=== PATIENT | female | born 1930 | race Caucasian/White ===

== ENCOUNTER 2017-12-18 22:57 | Emergency (ER) | END 2017-12-19 02:34 | disposition home or self-care (01) ==

== ENCOUNTER 2019-01-31 23:23 | Inpatient (IN) | payer MEDICARE, BC ==
[~2019-01-31] VITALS: Ht 154.9 cm; Wt 47.7 kg
[~2019-01-31 23:23] MED LIST: DOCU250C58 PO; DOXY100T20 PO; FER325 PO; FURO-110 PO; HYDR473S13 PO; IPRA3AMP29 HHN; LEVO500T48 PO; LEVO75TA5 PO; LUBI24CA7 PO; MECL-77 PO; NPH10OT RIGHT EAR; OMEP20CA16 PO; POLY17PO6 PO; POTA8CAP PO; SITA1TAB PO; SOTA80TA PO; WARF3TAB PO
[2019-01-31 23:26] VITALS: Ht 154.9 cm; Wt 47.7 kg
[2019-02-01] VITALS (8 sets, daily range): BP systolic 131–143; BP diastolic 59–68; PULSE 60–67; RESP 19–20
[2019-02-01] MEDS: FUROSEMIDE 40 MG INJ IV ONE ×2 (03:00→03:27)
--- NOTE | 2019-02-01 03:14 | ERD ---
ER Documentation Chief Complaint Chief Complaint SOB, cough, chest congestion X 1 wk, Hx CHF HPI This is an 88 female coming with shortness of breath and chest congestion for 1 week. Patient has history of CHF. No nausea no vomiting no fevers no chills no chest pain. Has been getting progressively more orthopneic. Also has dyspnea on exertion. No nausea vomiting no other current complaints. ROS All systems reviewed and are negative except as per history of present illness. Medications Home Meds Active Scripts Neomycin/Polymyxin/Hydrocort* (Cortisporin* Otic) 10 Ml Susp, 4 DROP RIGHT EAR QID for 7 Days, EA Prov:PORFIRIO KHANNA DO 12/19/17 Meclizine Hcl* (Meclizine Hcl*) 25 Mg Tablet, 25 MG PO TID for vertigo, #30 TAB Prov:PORFIRIO KHANNA DO 12/19/17 Levofloxacin* (Levaquin*) 500 Mg Tablet, 500 MG PO DAILY for 7 Days, TAB Prov:PORFIRIO KHANNA DO 12/19/17 Polyethylene Glycol* (Miralax*) 17 Gm Powd.pack, 17 GM PO DAILY for 10 Days Prov:HERSON DAVIS MD 11/27/16 Lubiprostone* (Amitiza*) 24 Mcg Capsule, 24 MCG PO WITH BREAKFAST DINNE for 28 Days, CAP Prov:HERSON DAVIS MD 11/27/16 Ipratropium-Albuterol (Ipratropium-Albuterol) 0.5-3 Mg/3 Ml Ampul.neb, 3 ML HHN Q2H RESP THERAPY PRN for SHORTNESS OF BREATH for 28 Days Prov:HERSON DAVIS MD 11/27/16 Hydrocodone-Homatropine* (Hydrocodone-Homatropine*) 5MG-1.5MG/5 Ml Syrup, 5 ML PO PRN PRN for COUGH for 14 Days Prov:HERSON DAVIS MD 11/27/16 Doxycycline Hyclate* (Doxycycline Hyclate*) 100 Mg Tablet.dr, 100 MG PO BID for pneumonia+ bronchitis , #14 TAB Prov:KEVIN ZHOU MD 11/23/16 Furosemide* (Lasix*) 20 Mg Tablet, 20 MG PO QAM, #90 TAB Prov:KEVIN ZHOU MD 11/23/16 Omeprazole* (Omeprazole*) 20 Mg Capsule., 40 MG PO BID, #60 CAP Prov:RICARDO ARREGUIN MD 11/13/16 Reported Medications Polyethylene Glycol* (Miralax*) 17 Gm Powd.pack, 17 GM PO DAILY, #30 PACKET 11/21/16 Potassium Chloride* (Potassium Chloride*) 8 Meq Capsule.er, 8 MEQ PO every other day, CAP 11/21/16 Docusate Sodium* (Colace*) 250 Mg Capsule, 250 MG PO DAILY, #30 CAP 11/21/16 Ferrous Sulfate* (Ferrous Sulfate*) 325 Mg Tabec, 325 MG PO BID, TAB 11/09/16 Levothyroxine Sodium* (Levothyroxine Sodium*) 75 Mcg Tablet, 75 MCG PO BEFORE BREAKFAST, #30 TAB 09/14/16 Sotalol Hcl* (Sotalol Hcl*) 80 Mg Tablet, 80 MG PO BID, TAB 09/14/16 Sitagliptin Phos/Metformin HCl (Janumet 50-500 mg Tablet) 1 Each Tablet, 1 EACH PO DAILY AM, TAB 09/14/16 Warfarin Sodium* (Coumadin*) 3 Mg Tablet, 3 MG PO DAILY, TAB 09/14/16 Allergies Allergies: Coded Allergies: No Known Allergy (Unverified , 12/18/17) PMhx/Soc History of Surgery: Yes (Hernia Repair, C Section, Gall bladder dates unknown.) Anesthesia Reaction: No Hx Neurological Disorder: No Hx Respiratory Disorders: Yes (Asthma ) Hx Cardiac Disorders: Yes Hx Psychiatric Problems: No Hx Miscellaneous Medical Probl: Yes (HYPOTHYROID) Hx Alcohol Use: No Hx Substance Use: No Hx Tobacco Use: No Smoking Status: Never smoker Physical Exam Vitals Vital Signs Date Temp Pulse Resp B/P (MAP) Pulse Ox O2 O2 Flow FiO2 Time Delivery Rate 02/01/19 Nasal 2.0 02:00 Cannula 02/01/19 Nasal 2 02:00 Cannula 01/31/19 98.5 60 18 144/64 94 23:26 (90) Physical Exam Const: No acute distress Head: Atraumatic Eyes: Normal Conjunctiva ENT: Normal External Ears, Nose and Mouth. Neck: Full range of motion. No meningismus. Resp: Scattered rales bilaterally Cardio: Regular rate and rhythm, no murmurs Abd: Soft, non tender, non distended. Normal bowel sounds Skin: No petechiae or rashes Back: No midline or flank tenderness Ext: No cyanosis, or edema Neur: Awake and alert Psych: Normal Mood and Affect Result Diagram: 02/01/192 02/01/19 0152 Results 24 hrs Laboratory Tests Test 02/01/19 01:52 White Blood Count 11.4 10^3/ul Red Blood Count 3.45 10^6/ul Hemoglobin 11.0 g/dl Hematocrit 33.8 % Mean Corpuscular Volume 98.0 fl Mean Corpuscular Hemoglobin 31.9 pg Mean Corpuscular Hemoglobin Concent 32.5 g/dl Red Cell Distribution Width 13.4 % Platelet Count 256 10^3/UL Mean Platelet Volume 10.8 fl Immature Granulocytes % 1.100 % Neutrophils % 82.3 % Lymphocytes % 7.1 % Monocytes % 8.8 % Eosinophils % 0.3 % Basophils % 0.4 % Nucleated Red Blood Cells % 0.0 /100WBC Immature Granulocytes # 0.130 10^3/ul Neutrophils # 9.4 10^3/ul Lymphocytes # 0.8 10^3/ul Monocytes # 1.0 10^3/ul Eosinophils # 0.0 10^3/ul Basophils # 0.0 10^3/ul Nucleated Red Blood Cells # 0.0 10^3/ul Sodium Level 142 mmol/L Potassium Level 5.0 mmol/L Chloride Level 99 mmol/L Carbon Dioxide Level 33 mmol/L Anion Gap 10 Blood Urea Nitrogen 67 mg/dl Creatinine 1.76 mg/dl Est Glomerular Filtrat Rate mL/min mL/min Glucose Level 175 mg/dl Calcium Level 9.5 mg/dl Total Bilirubin 0.3 mg/dl Direct Bilirubin 0.00 mg/dl Indirect Bilirubin 0.3 mg/dl Aspartate Amino Transf (AST/SGOT) 33 IU/L Alanine Aminotransferase (ALT/SGPT) 26 IU/L Alkaline Phosphatase 106 IU/L Troponin I < 0.012 ng/ml B-Type Natriuretic Peptide 01456 PG/ML Total Protein 7.5 g/dl Albumin 3.7 g/dl Globulin 3.80 g/dl Albumin/Globulin Ratio 0.97 Current Medications Medications Dose Sig/Radha Start Time Status Last (Trade) Ordered Route PRN Stop Time Admin Dose Reason Admin Furosemide 80 mg ONCE ONCE 02/01/19 DC (Lasix) IV 03:00 02/01/19 03:01 Procedures/MDM EKG: Rate/Rhythm: [Normal Sinus Rhythm] QRS, ST, T-waves: [No changes consistent w/ acute ischemia] Impression: [No evidence of ischemia or arrhythmia] Chest X-ray 1V Interpreted by me: Soft Tissue: No acute abnormalities Bones: No acute abnormalities Mediastinum/Cardiac Silhouette/Lungs: Increased interstitial fluid markings. Impression: CHF Medical decision making: Patient's heart failure symptoms is concerning for acute decompensation and will require inpatient workup and monitoring. Further w/u for ischemia, arrhythmia, PE or dissection will be deferred to the inpatient team. Accepting Care Team: Current data and ongoing care discussed. Time: 313 a.m. Primary Provider: Hospitalist Consulting: Deferred to inpatient team Outstanding Data: none Departure Diagnosis: Primary Impression: CHF (congestive heart failure) Heart failure type: unspecified Heart failure chronicity: unspecified Qualified Codes: I50.9 - Heart failure, unspecified Condition: RESHMA Mensah Feb 01, 2019 03:14
[2019-02-01] MEDS ORDERED: FUROSEMIDE 40 MG INJ IV ONE (05:00)
[2019-02-01] MEDS ORDERED: ONDANSETRON 4 MG INJ IV PRN (05:00)
[2019-02-01] MEDS ORDERED: NACL 0.9% 3 ML SYG IV SCH (05:00)
[2019-02-01] MEDS ORDERED: ACETAMINOPHEN 325 MG TAB PO PRN (05:00)
[2019-02-01] MEDS ORDERED: NITROGLYCERIN (SL) 0.4 MG TAB SL PRN (05:00)
[2019-02-01] MEDS ORDERED: ALBUTEROL/IPRATROPIUM (NEB) 3 ML AMP HHN PRN ×2 (05:00)
[2019-02-01] MEDS ORDERED: GLUCOSE GEL 15 GRAM TUBE BUCCAL PRN (05:30)
[2019-02-01] MEDS ORDERED: GLUCOSE GEL 15 GRAM TUBE PO PRN ×2 (05:30)
[2019-02-01] MEDS ORDERED: GLUCAGON 1 MG INJ IM PRN (05:30)
[2019-02-01] MEDS ORDERED: DEXTROSE 50% 50 ML SYRINGE IV PRN (05:30)
--- NOTE | 2019-02-01 06:13 | HP ---
Date/Time of Note Date/Time of Note DATE: 02/01/19 TIME: 06:08 Assessment/Plan VTE Prophylaxis Pharmacological prophylaxis: heparin Lines/Catheters IV Catheter Type (from Nrsg): Saline Lock Assessment/Plan Assessment/Plan 1. CHF exacerbation: will diurese -2D echo 2. Atrial fibrillation: In sinus and rate controlled -Continue home meds. Patient also on Coumadin. Will check PT PTT first 3. CKD: Consider nephrology consult in a.m. 4. Diabetes: Insulin while in-house 5. Normocytic anemia: Likely secondary to iron deficiency and chronic di sease/CKD -Continue ferrous sulfate -Check FOBT and ferritin/iron. Note that patient has a history of GI bleed and has been on Coumadin Result Diagram: 02/01/19 0152 02/01/19 0152 Results 24hrs Laboratory Tests Test 02/01/19 01:52 02/01/19 05:28 White Blood Count 11.4 #H Red Blood Count 3.45 #L Hemoglobin 11.0 #L Hematocrit 33.8 #L Mean Corpuscular Volume 98.0 Mean Corpuscular Hemoglobin 31.9 Mean Corpuscular Hemoglobin Concent 32.5 Red Cell Distribution Width 13.4 # Platelet Count 256 Mean Platelet Volume 10.8 #H Immature Granulocytes % 1.100 H Neutrophils % 82.3 H Lymphocytes % 7.1 L Monocytes % 8.8 Eosinophils % 0.3 Basophils % 0.4 Nucleated Red Blood Cells % 0.0 Immature Granulocytes # 0.130 H Neutrophils # 9.4 H Lymphocytes # 0.8 Monocytes # 1.0 H Eosinophils # 0.0 Basophils # 0.0 Nucleated Red Blood Cells # 0.0 Sodium Level 142 Potassium Level 5.0 Chloride Level 99 Carbon Dioxide Level 33 H Anion Gap 10 Blood Urea Nitrogen 67 H Creatinine 1.76 H Est Glomerular Filtrat Rate mL/min Glucose Level 175 Calcium Level 9.5 Total Bilirubin 0.3 Direct Bilirubin 0.00 Indirect Bilirubin 0.3 Aspartate Amino Transf (AST/SGOT) 33 Alanine Aminotransferase (ALT/SGPT) 26 Alkaline Phosphatase 106 Troponin I < 0.012 0.025 B-Type Natriuretic Peptide 89658 H Total Protein 7.5 Albumin 3.7 Globulin 3.80 H Albumin/Globulin Ratio 0.97 Creatine Kinase 21 L Creatine Kinase Index Pending Creatinine Kinase MB (Mass) Pending HPI/ROS Admit Date/Time Admit Date/Time Hx of Present Illness This is an 88-year-old female with a history of CHF, atrial fibrillation, diabetes, hypothyroidism, CKD, GI bleed, pacemaker, ESBL UTI. Patient was brought to the ER for shortness of breath and cough. Patient has been weak to answer questions, especially when she first came in. No reported chest pain. She was recently hospitalized at [facility] and was discharged to convalescent home. Chest x-ray shows mild CHF and small bilateral pleural effusion. Lab shows a WBC of 11.4, hemoglobin 11, creatinine 1.76 and a BNP of around 12,000. PMH/Family/Social Past Medical History Medications Current Medications IV Flush (NS 3 ml) 3 ml PER PROTOCOL IV ; Start 02/01/19 at 05:00 Ondansetron HCl (Zofran Inj) 4 mg Q6H PRN IV NAUSEA/VOMITING; Start 02/01/19 at 05:00 Nitroglycerin (Nitroglycerin (Sl Tab) 0.4 Mg) 1 tab Q5M PRN SL .CHEST PAIN; Start 02/01/19 at 05:00 Acetaminophen (Tylenol Tab) 650 mg Q6H PRN PO .PAIN 1-3 OR TEMP; Start 02/01/19 at 05:00 Heparin Sodium (Porcine) (Heparin (5000 Units/1ml)) 5,000 unit Q12 SC ; Start 02/01/19 at 09:00 Albuterol/ Ipratropium (Duoneb) 3 ml Q2H RESP THERAPY PRN HHN SHORTNESS OF BREATH; Start 02/01/19 at 05:00 Diagnostic Test (Pha) (Accu-Chek) 1 ea 02 XX ; Start 02/02/19 at 02:00 Insulin Glargine (Lantus) 10 units DAILY@2000 SC ; Start 02/01/19 at 20:00 Insulin Aspart (Novolog Insulin Pen) NOVOLOG *MILD* ALGORITHM WITH MEALS BEDTIM E SC ; Start 02/01/19 at 08:00 Docusate Sodium (Colace) 250 mg DAILY PO ; Start 02/01/19 at 09:00 Ferrous Sulfate (Ferrous Sulfate (Ec)) 325 mg BID PO ; Start 02/01/19 at 09:00 Hydrocodone Bit/ Homatropine Methylb (Hycodan Liquid) 5 ml DAILY PRN PO COUGH; Start 02/01/19 at 05:00 Levothyroxine Sodium (Synthroid) 75 mcg BEFORE BREAKFAST PO ; Start 02/01/19 at 07:00 Lubiprostone (Amitiza) 24 mcg WITH BREAKFAST DINNE PO ; Start 02/01/19 at 08:00 Meclizine HCl (Antivert) 25 mg TID PO ; Start 02/01/19 at 09:00 Polyethylene Glycol (Miralax) 17 gm DAILY PO ; Start 02/01/19 at 09:00 Sotalol HCl (Betapace) 40 mg BID PO ; Start 02/01/19 at 09:00 Warfarin Sodium (Coumadin) 3 mg DAILY@1700 PO ; Start 02/01/19 at 17:00 Pantoprazole (Protonix Tab) 40 mg DAILY@06 PO ; Start 02/01/19 at 06:00 Furosemide (Lasix) 20 mg BID DIURETICS PO ; Start 02/01/19 at 06:00 Miscellaneous Information 1 ea NOTE XX ; Start 02/01/19 at 05:30 Glucose (Glutose) 15 gm Q15M PRN PO DECREASED GLUCOSE; Start 02/01/19 at 05:30 Glucose (Glutose) 22.5 gm Q15M PRN PO DECREASED GLUCOSE; Start 02/01/19 at 05:30 Dextrose (D50w Syringe) 25 ml Q15M PRN IV DECREASED GLUCOSE; Start 02/01/19 at 05:30 Dextrose (D50w Syringe) 50 ml Q15M PRN IV DECREASED GLUCOSE; Start 02/01/19 at 05:30 Glucagon (Glucagen) 1 mg Q15M PRN IM DECREASED GLUCOSE; Start 02/01/19 at 05:30 Glucose (Glutose) 15 gm Q15M PRN BUCCAL DECREASED GLUCOSE; Start 02/01/19 at 05 :30 Coded Allergies: No Known Allergy (Unverified , 12/18/17) Family History Significant Family History: no pertinent family hx Social History Smoking Status: Never smoker Exam/Review of Systems Vital Signs Vitals Vital Signs Date Temp Pulse Resp B/P (MAP) Pulse Ox O2 O2 Flow FiO2 Time Delivery Rate 02/01/19 60 16 122/52 100 Nasal 2.0 05:00 (75) Cannula 01/31/19 98.5 23:26 Exam Exam Past Medical History: see hpi Past Surgical History Past Surgical Hx: other (see hpi) Family History Significant Family History: no pertinent family hx Social History Alcohol Use: other Smoking Status: Unknown if ever smoked Drug Use: other Medications Exam Eyes: PERRL ENMT: mucosa pink and moist Respiratory: normal air movement Cardiovascular: nl pulses Gastrointestinal: soft Extremities: normal pulses RESHMA ACUÑA MD Feb 01, 2019 06:13
[2019-02-01] MEDS: FUROSEMIDE 20 MG TAB PO SCH ×2 (07:00→17:44)
[2019-02-01] MEDS: PANTOPRAZOLE (EC) 40 MG TAB PO SCH (07:17)
[2019-02-01] MEDS ORDERED: FUROSEMIDE 20 MG TAB PO SCH (09:00)
[2019-02-01] MEDS ORDERED: DOCUSATE SODIUM 250 MG CAP PO SCH (09:00)
[2019-02-01] MEDS: FERROUS SULFATE (EC) 325 MG TAB PO SCH ×2 (09:07→22:28)
[2019-02-01] MEDS: POLYETHYLENE GLYCOL 17 GM PACKET PO SCH (09:07)
[2019-02-01] MEDS: MECLIZINE 25 MG TAB PO SCH ×3 (09:07→22:28)
[2019-02-01] MEDS: LEVOTHYROXINE 75 MCG TAB PO SCH (09:07)
[2019-02-01] MEDS: HEPARIN 5,000 UNIT/1 ML VIAL SC SCH ×2 (09:19→22:31)
[2019-02-01] MEDS: SOTALOL 80 MG TAB PO SCH ×2 (09:29→22:29)
[2019-02-01] MEDS: LUBIPROSTONE 24 MCG CAP PO SCH ×2 (09:29→17:43)
[2019-02-01] MEDS: INSULIN ASPART [NOVOLOG] 3 ML PEN SC SCH ×4 (09:42→21:00)
--- NOTE | 2019-02-01 12:08 | CONS ---
Assessment/Plan Assessment/Plan Assessment/Plan (Daily) 1. acute kidney injury on CKD due to hemodyanmics from CHF 2. acute CHF, acute on chronic diastolic CHF, ECHO showed EF 60% with stage II diastoilc dysfunction 3. H/o HTN 4. H/o HL 5. Anemia of CKD 6. H/o history of CHF, atrial fibrillation, diabetes, hypothyroidism, CKD, GI bleed, pacemaker, Plan: seen on tele floor S/p lasix 40mg IV x 1 dose , will continue lasix 20mg pO BID S/p cardiology consult, pt had a full CKD work up on previosu admisison will follow up Consultation Date/Type/Reason Admit Date/Time 02/01/19 Date of Consultation: Feb 01, 2019 Type of Consult NEPHROLOGY Reason for Consultation acute on chronic renal failure, CHF Requesting Provider: ANDREA KHAN NP Date/Time of Note DATE: 02/01/19 TIME: 12:08 Hx of Present Illness 88-year-old female with a history of CHF, atrial fibrillation, diabetes, hypothyroidism, CKD, GI bleed, pacemaker, ESBL UTI. Patient was brought to the ER for shortness of breath and cough. Patient has been weak to answer questions, especially when she first came in. No reported chest pain. She was recently hospitalized at [facility] and was discharged to convalescent home. Chest x-ray shows mild CHF and small bilateral pleural effusion. Lab shows a WBC of 11.4, hemoglobin 11, creatinine 1.76 and a BNP of around 12,000._ renal has been consulted for COLTEN on CKD. ECHO showed EF 60% stage II diastolic dysfunction Constitutional: no complaints Eyes: no complaints ENT: no complaints Respiratory: pain, pleuritic pain, shortness of breath Cardiovascular: no complaints Gastrointestinal: no complaints Genitourinary: no complaints Musculoskeletal: no complaints Skin: no complaints Neurologic: no complaints Endocrine: no complaints Lymphatic: no complaints Psychological: no complaints, nl mood/affect Immunologic: no complaints Past Medical History Medical History: other (CHF, atrial fibrillation, diabetes, hypothyroidism, CKD, GI bleed, pacemaker, ESBL UTI.) Home Meds Active Scripts Neomycin/Polymyxin/Hydrocort* (Cortisporin* Otic) 10 Ml Susp, 4 DROP RIGHT EAR QID for 7 Days, EA Prov:PORFIRIO KHANNA DO 12/19/17 Meclizine Hcl* (Meclizine Hcl*) 25 Mg Tablet, 25 MG PO TID for vertigo, #30 TAB Prov:PORFIRIO KHANNA. DO 12/19/17 Levofloxacin* (Levaquin*) 500 Mg Tablet, 500 MG PO DAILY for 7 Days, TAB Prov:PORFIRIO KHANNA. DO 12/19/17 Polyethylene Glycol* (Miralax*) 17 Gm Powd.pack, 17 GM PO DAILY for 10 Days Prov:HERSON DAVIS MD 11/27/16 Lubiprostone* (Amitiza*) 24 Mcg Capsule, 24 MCG PO WITH BREAKFAST DINNE for 28 Days, CAP Prov:HERSON DAVIS MD 11/27/16 Ipratropium-Albuterol (Ipratropium-Albuterol) 0.5-3 Mg/3 Ml Ampul.neb, 3 ML HHN Q2H RESP THERAPY PRN for SHORTNESS OF BREATH for 28 Days Prov:HERSON DAVIS MD 11/27/16 Hydrocodone-Homatropine* (Hydrocodone-Homatropine*) 5MG-1.5MG/5 Ml Syrup, 5 ML PO PRN PRN for COUGH for 14 Days Prov:HERSON DAVIS MD 11/27/16 Doxycycline Hyclate* (Doxycycline Hyclate*) 100 Mg Tablet., 100 MG PO BID for pneumonia+ bronchitis , #14 TAB Prov:KEVIN ZHOU MD 11/23/16 Furosemide* (Lasix*) 20 Mg Tablet, 20 MG PO QAM, #90 TAB Prov:KEVIN ZHOU MD 11/23/16 Omeprazole* (Omeprazole*) 20 Mg Capsule., 40 MG PO BID, #60 CAP Prov:RICARDO ARREGUIN MD 11/13/16 Reported Medications Apixaban* (Eliquis*) 2.5 Mg Tablet, 2.5 MG PO BID, TAB 02/01/19 Travoprost* (Travatan Z*) 2.5 Ml Drops, 1 DROP BOTH EYES HS, #1 BOTTLE 02/01/19 Gentamicin Sulfate* (Gentamicin Sulfate* Ophth) 0.3% - 5 Ml Drops, 1 DROP LEFT EYE Q4, EA 02/01/19 Peg 400/Hypromellose/Glycerin (EYE DROP TEARS) 15 Ml Drops, 1 DROP OP Q4 PRN for DRY EYES, BOTTLE 02/01/19 Cyclosporine (Restasis Multidose) 5.5 Ml Drops, 1 DROP OP BID, BOTTLE 02/01/19 Polyethylene Glycol* (Miralax*) 17 Gm Powd.pack, 17 GM PO DAILY, #30 PACKET 11/21/16 Potassium Chloride* (Potassium Chloride*) 8 Meq Capsule.er, 8 MEQ PO every other day, CAP 11/21/16 Docusate Sodium* (Colace*) 250 Mg Capsule, 250 MG PO DAILY, #30 CAP 11/21/16 Ferrous Sulfate* (Ferrous Sulfate*) 325 Mg Tabec, 325 MG PO BID, TAB 11/09/16 Levothyroxine Sodium* (Levothyroxine Sodium*) 75 Mcg Tablet, 75 MCG PO BEFORE BREAKFAST, #30 TAB 09/14/16 Sotalol Hcl* (Sotalol Hcl*) 80 Mg Tablet, 80 MG PO BID, TAB 09/14/16 Sitagliptin Phos/Metformin HCl (Janumet 50-500 mg Tablet) 1 Each Tablet, 1 EACH PO DAILY AM, TAB 09/14/16 Warfarin Sodium* (Coumadin*) 3 Mg Tablet, 3 MG PO DAILY, TAB 09/14/16 Medications Current Medications IV Flush (NS 3 ml) 3 ml PER PROTOCOL IV ; Start 02/01/19 at 05:00 Ondansetron HCl (Zofran Inj) 4 mg Q6H PRN IV NAUSEA/VOMITING; Start 02/01/19 at 05:00 Nitroglycerin (Nitroglycerin (Sl Tab) 0.4 Mg) 1 tab Q5M PRN SL .CHEST PAIN; Start 02/01/19 at 05:00 Acetaminophen (Tylenol Tab) 650 mg Q6H PRN PO .PAIN 1-3 OR TEMP; Start 02/01/19 at 05:00 Heparin Sodium (Porcine) (Heparin (5000 Units/1ml)) 5,000 unit Q12 SC Last administered on 02/01/19at 09:19; Admin Dose 5,000 UNIT; Start 02/01/19 at 09:00 Albuterol/ Ipratropium (Duoneb) 3 ml Q2H RESP THERAPY PRN HHN SHORTNESS OF BREATH; Start 02/01/19 at 05:00 Diagnostic Test (Pha) (Accu-Chek) 1 ea 02 XX ; Start 02/02/19 at 02:00 Insulin Glargine (Lantus) 10 units DAILY@2000 SC ; Start 02/01/19 at 20:00 Insulin Aspart (Novolog Insulin Pen) NOVOLOG *MILD* ALGORITHM WITH MEALS BEDTIME SC Last administered on 02/01/19 12:02; Admin Dose 2 UNIT; Start 02/01/19 at 08:00 Docusate Sodium (Colace) 250 mg DAILY PO Last administered on 02/01/19 09:07; Admin Dose 250 MG; Start 02/01/19 at 09:00 Ferrous Sulfate (Ferrous Sulfate (Ec)) 325 mg BID PO Last administered on 02/01/19 09:07; Admin Dose 325 MG; Start 02/01/19 at 09:00 Hydrocodone Bit/ Homatropine Methylb (Hycodan Liquid) 5 ml DAILY PRN PO COUGH; Start 02/01/19 at 05:00 Levothyroxine Sodium (Synthroid) 75 mcg BEFORE BREAKFAST PO Last administered on 02/01/19 09:07; Admin Dose 75 MCG; Start 02/01/19 at 07:00 Lubiprostone (Amitiza) 24 mcg WITH BREAKFAST DINNE PO Last administered on 02/01/19 09:29; Admin Dose 24 MCG; Start 02/01/19 at 08:00 Meclizine HCl (Antivert) 25 mg TID PO Last administered on 02/01/19 09:07; Admin Dose 25 MG; Start 02/01/19 at 09:00 Polyethylene Glycol (Miralax) 17 gm DAILY PO Last administered on 02/01/19 09:0 7; Admin Dose 17 GM; Start 02/01/19 at 09:00 Sotalol HCl (Betapace) 40 mg BID PO Last administered on 02/01/19 09:29; Admin Dose 40 MG; Start 02/01/19 at 09:00 Warfarin Sodium (Coumadin) 3 mg DAILY@1700 PO ; Start 02/01/19 at 17:00 Pantoprazole (Protonix Tab) 40 mg DAILY@06 PO Last administered on 02/01/19 07:17; Admin Dose 40 MG; Start 02/01/19 at 06:00 Furosemide (Lasix) 20 mg BID DIURETICS PO ; Start 02/01/19 at 06:00 Miscellaneous Information 1 ea NOTE XX ; Start 02/01/19 at 05:30 Glucose (Glutose) 15 gm Q15M PRN PO DECREASED GLUCOSE; Start 02/01/19 at 05:30 Glucose (Glutose) 22.5 gm Q15M PRN PO DECREASED GLUCOSE; Start 02/01/19 at 05:30 Dextrose (D50w Syringe) 25 ml Q15M PRN IV DECREASED GLUCOSE; Start 02/01/19 at 05:30 Dextrose (D50w Syringe) 50 ml Q15M PRN IV DECREASED GLUCOSE; Start 02/01/19 at 05:30 Glucagon (Glucagen) 1 mg Q15M PRN IM DECREASED GLUCOSE; Start 02/01/19 at 05:30 Glucose (Glutose) 15 gm Q15M PRN BUCCAL DECREASED GLUCOSE; Start 02/01/19 at 05:30 Allergies: Coded Allergies: No Known Allergy (Unverified , 12/18/17) Past Surgical History Past Surgical Hx: other Family History Significant Family History: no pertinent family hx Social History Alcohol Use: none Smoking Status: Never smoker Drug Use: none Exam/Review of Systems Exam Vitals Vital Signs Date Temp Pulse Resp B/P (MAP) Pulse Ox O2 O2 Flow FiO2 Time Delivery Rate 02/01/19 97.9 60 20 143/64 100 11:45 (90) 02/01/19 Nasal 2.0 07:45 Cannula Constitutional: alert Psych: no complaints Head: normocephalic ENMT: nl external ears & nose Neck: supple, non-tender Respiratory: congested cough, crackles/rales, diminished breath sounds Cardiovascular: regular rate and rhythm, nl pulses Gastrointestinal: soft, non-tender Musculoskeletal: nl extremities to inspection Extremities: normal pulses Neurological: GAMBRELER II-XII intact, nl mental status, nl speech, nl strength Skin: nl turgor Lymph: nl lymph nodes Results Result Diagram: 02/01/1915102/01/192 Results 24hrs Laboratory Tests Test 02/01/19 01:52 02/01/19 05:28 02/01/19 05:29 02/01/19 06:00 White Blood Count 11.4 #H Red Blood Count 3.45 #L Hemoglobin 11.0 #L Hematocrit 33.8 #L Mean Corpuscular Volume 98.0 Mean Corpuscular 31.9 Hemoglobin Mean Corpuscular 32.5 Hemoglobin Concent Red Cell Distribution 13.4 # Width Platelet Count 256 Mean Platelet Volume 10.8 #H Immature Granulocytes % 1.100 H Neutrophils % 82.3 H Lymphocytes % 7.1 L Monocytes % 8.8 Eosinophils % 0.3 Basophils % 0.4 Nucleated Red Blood 0.0 Cells % Immature Granulocytes # 0.130 H Neutrophils # 9.4 H Lymphocytes # 0.8 Monocytes # 1.0 H Eosinophils # 0.0 Basophils # 0.0 Nucleated Red Blood 0.0 Cells # Sodium Level 142 Potassium Level 5.0 Chloride Level 99 Carbon Dioxide Level 33 H Anion Gap 10 Blood Urea Nitrogen 67 H Creatinine 1.76 H Est Glomerular Filtrat Rate mL/min Glucose Level 175 Calcium Level 9.5 Total Bilirubin 0.3 Direct Bilirubin 0.00 Indirect Bilirubin 0.3 Aspartate Amino 33 Transf (AST/SGOT) Alanine 26 Aminotransferase (ALT/SG PT) Alkaline Phosphatase 106 Troponin I < 0.012 0.025 B-Type Natriuretic 88226 H Peptide Total Protein 7.5 Albumin 3.7 Globulin 3.80 H Albumin/Globulin Ratio 0.97 Creatine Kinase 21 L Creatine Kinase Index 2.0 Creatinine Kinase MB 0.42 (Mass) Thyroid Stimulating 0.942 Hormone (TSH) Prothrombin Time 20.0 H Prothrombin Time Ratio 1.6 INR International 1.69 Normalized Ratio Activated 44.7 H Partial Thromboplast Time Iron Level 23 L Total Iron Binding 196 L Capacity Percent Iron Saturation 12 L Ferritin 714.0 H Test 02/01/19 09:06 02/01/19 10:11 02/01/19 11:55 Bedside Glucose 144 213 Creatine Kinase < 20 L Creatine Kinase Index Creatinine Kinase MB 0.44 (Mass) Troponin I 0.015 Medications Medication Current Medications IV Flush (NS 3 ml) 3 ml PER PROTOCOL IV ; Start 02/01/19 at 05:00 Ondansetron HCl (Zofran Inj) 4 mg Q6H PRN IV NAUSEA/VOMITING; Start 02/01/19 at 05:00 Nitroglycerin (Nitroglycerin (Sl Tab) 0.4 Mg) 1 tab Q5M PRN SL .CHEST PAIN; Start 02/01/19 at 05:00 Acetaminophen (Tylenol Tab) 650 mg Q6H PRN PO .PAIN 1-3 OR TEMP; Start 02/01/19 at 05:00 Heparin Sodium (Porcine) (Heparin (5000 Units/1ml)) 5,000 unit Q12 SC Last administered on 02/01/19 09:19; Admin Dose 5,000 UNIT; Start 02/01/19 at 09:00 Albuterol/ Ipratropium (Duoneb) 3 ml Q2H RESP THERAPY PRN HHN SHORTNESS OF BREATH; Start 02/01/19 at 05:00 Diagnostic Test (Pha) (Accu-Chek) 1 ea 02 XX ; Start 02/02/19 at 02:00 Insulin Glargine (Lantus) 10 units DAILY@2000 SC ; Start 02/01/19 at 20:00 Insulin Aspart (Novolog Insulin Pen) NOVOLOG *MILD* ALGORITHM WITH MEALS BEDTIME SC Last administered on 02/01/19 12:02; Admin Dose 2 UNIT; Start 02/01/19 at 08:00 Docusate Sodium (Colace) 250 mg DAILY PO Last administered on 02/01/19 09:07; Admin Dose 250 MG; Start 02/01/19 at 09:00 Ferrous Sulfate (Ferrous Sulfate (Ec)) 325 mg BID PO Last administered on 02/01/19 09:07; Admin Dose 325 MG; Start 02/01/19 at 09:00 Hydrocodone Bit/ Homatropine Methylb (Hycodan Liquid) 5 ml DAILY PRN PO COUGH; Start 02/01/19 at 05:00 Levothyroxine Sodium (Synthroid) 75 mcg BEFORE BREAKFAST PO Last administered on 02/01/19 09:07; Admin Dose 75 MCG; Start 02/01/19 at 07:00 Lubiprostone (Amitiza) 24 mcg WITH BREAKFAST DINNE PO Last administered on 02/01/19 09:29; Admin Dose 24 MCG; Start 02/01/19 at 08:00 Meclizine HCl (Antivert) 25 mg TID PO Last administered on 02/01/19 09:07; Admin Dose 25 MG; Start 02/01/19 at 09:00 Polyethylene Glycol (Miralax) 17 gm DAILY PO Last administered on 02/01/19 09:07; Admin Dose 17 GM; Start 02/01/19 at 09:00 Sotalol HCl (Betapace) 40 mg BID PO Last administered on 3/4/19at 09:29; Admin Dose 40 MG; Start 02/01/19 at 09:00 Warfarin Sodium (Coumadin) 3 mg DAILY@1700 PO ; Start 02/01/19 at 17:00 Pantoprazole (Protonix Tab) 40 mg DAILY@06 PO Last administered on 02/01/19at 07:17; Admin Dose 40 MG; Start 02/01/19 at 06:00 Furosemide (Lasix) 20 mg BID DIURETICS PO ; Start 02/01/19 at 06:00 Miscellaneous Information 1 ea NOTE XX ; Start 02/01/19 at 05:30 Glucose (Glutose) 15 gm Q15M PRN PO DECREASED GLUCOSE; Start 02/01/19 at 05:30 Glucose (Glutose) 22.5 gm Q15M PRN PO DECREASED GLUCOSE; Start 02/01/19 at 05:30 Dextrose (D50w Syringe) 25 ml Q15M PRN IV DECREASED GLUCOSE; Start 02/01/19 at 05:30 Dextrose (D50w Syringe) 50 ml Q15M PRN IV DECREASED GLUCOSE; Start 02/01/19 at 05:30 Glucagon (Glucagen) 1 mg Q15M PRN IM DECREASED GLUCOSE; Start 02/01/19 at 05:30 Glucose (Glutose) 15 gm Q15M PRN BUCCAL DECREASED GLUCOSE; Start 02/01/19 at 05:30 KEVIN ZHOU MD Feb 01, 2019 12:08
--- NOTE | 2019-02-01 12:16 | QN ---
Documentation Comment 88-year-old female who was recently discharged from a [place] [facility] facility 2 weeks ago, currently living with family, with a history of CHF, CKD, hypothyroidism, anemia, diabetes, was brought in for worsening cough, shortness of breath, weakness for a few day duration, found to have CHF exacerbation. Continue diuresis, continue beta-blockers. We will also request cardiology consultation for management of heart failure. We will insert a [place] cath and monitor strict I's and O's.. We will also place a echocardiogram. Patient also with a CKD, currently in acute kidney injury most likely secondary to diuresis. We will also seek nephrology evaluation. Patient's son also reported that she has been having difficulty swallowing food for a week duration and currently she complains of food being stuck in her throat. For this reason, I will also request a speech therapy official evaluation and diet per speech therapy recommendation. Aspiration precaution. Case d/w ANDREA Prince NP Feb 01, 2019 12:16
[2019-02-01] MEDS: DOCUSATE SODIUM 10 MG/ML (10ML CUP) PO SCH (14:31)
[2019-02-01] MEDS ORDERED: PEG15DRO2 OP (15:57)
[2019-02-01] MEDS ORDERED: GENT5DRO28 LEFT EYE (15:57)
[2019-02-01] MEDS ORDERED: CYCL5.5D OP (15:57)
[2019-02-01] MEDS ORDERED: TRAV2.5D BOTH EYES (15:57)
--- NOTE | 2019-02-01 16:06 | CONS ---
Assessment/Plan Assessment/Plan Hospital Course (Demo Recall) Dyspnea: Multifactorial: Congestive heart failure Paroxysmal atrial fibrillation: Currently in sinus rhythm Sinus syndrome with permanent pacemaker Renal failure: Acute versus chronic History of hypertension Encephalopathy Diabetes Hypothyroidism Recommendations: Diuresis as per renal. Patient has previously been followed by Dr. Davis per family report I have notified the patient's regular section 8 property manager follow-up the patient tomorrow and will take over the cardiac care Continue to monitor on telemetry Patient has been started on anticoagulation with Coumadin. Adjust the dosage to therapeutic range or consider switching it to Eliquis 2.5 twice daily Diabetic management as per internal medicine Thyroid supplement will be continued Thank you for his referral. I will continue to follow along with you until takes over the cardiac care tomorrow. CLEO CENTENO MD [facility] Consultation Date/Type/Reason Admit Date/Time 02/01/19 Date of Consultation: Feb 01, 2019 Type of Consult Cardiology Reason for Consultation CHF Requesting Provider: ANDREA KHAN NP Date/Time of Note DATE: 02/01/19 TIME: 15:57 Hx of Present Illness Interventional cardiology consultation note Chief complaint: Shortness of breath cough Reason for consult: Congestive heart failure History of present illness: Thank you for this referral. History was obtained from the patient daughter and son discussion with the staff and physicians. From review of the old chart. Patient himself is not able to provide any history to me This is an unfortunate 88-year-old female male with multiple complicated medical history who was brought into the emergency room with increasing shortness of breath and cough. Patient himself is not able to provide any history to me. Discussed with the patient's son and daughter who are good historian. According to the family, patient was recently admitted to [facility] for the same reason. She was discharged home. She was home for a couple of days and apparently has seen Dr. Davis, her therapist's assistant. Her Lasix was decreased to the renal failure. She has got more shortness of breath and was to the emergency room. Patient also has a history of appears to be proximal atrial fibrillation status post permanent pacemaker. Currently is in paced rhythm Allergies: No known drug allergies Medications were reviewed as per medical reconciliation sheet Family history: No reported history of early coronary artery disease Social history: None smoker. Lives with the family Past medical history: Paroxysmal atrial fibrillation status post permanent pacemaker sick sinus syndrome Hypertension. Renal insufficiency possibly acute recently Diabetes, hypothyroidism Review of system: Patient denies all others except for above-mentioned Past Medical History Home Meds Active Scripts Neomycin/Polymyxin/Hydrocort* (Cortisporin* Otic) 10 Ml Susp, 4 DROP RIGHT EAR QID for 7 Days, EA Prov:JILLIAN KHANNAOLOS A. DO 12/19/17 Meclizine Hcl* (Meclizine Hcl*) 25 Mg Tablet, 25 MG PO TID for vertigo, #30 TAB Prov:SOLE KHANNAS A. DO 12/19/17 Levofloxacin* (Levaquin*) 500 Mg Tablet, 500 MG PO DAILY for 7 Days, TAB Prov:SOLE KHANNAS A. DO 12/19/17 Polyethylene Glycol* (Miralax*) 17 Gm Powd.pack, 17 GM PO DAILY for 10 Days Prov:HERSON DAVIS MD 11/27/16 Lubiprostone* (Amitiza*) 24 Mcg Capsule, 24 MCG PO WITH BREAKFAST DINNE for 28 Days, CAP Prov:HERSON DAVIS MD 11/27/16 Ipratropium-Albuterol (Ipratropium-Albuterol) 0.5-3 Mg/3 Ml Ampul.neb, 3 ML HHN Q2H RESP THERAPY PRN for SHORTNESS OF BREATH for 28 Days Prov:HERSON DAVIS MD 11/27/16 Hydrocodone-Homatropine* (Hydrocodone-Homatropine*) 5MG-1.5MG/5 Ml Syrup, 5 ML PO PRN PRN for COUGH for 14 Days Prov:HERSON DAVIS MD 11/27/16 Doxycycline Hyclate* (Doxycycline Hyclate*) 100 Mg Tablet.dr, 100 MG PO BID for pneumonia+ bronchitis , #14 TAB Prov:KEVIN ZHOU MD 11/23/16 Furosemide* (Lasix*) 20 Mg Tablet, 20 MG PO QAM, #90 TAB Prov:KEVIN ZHOU MD 11/23/16 Omeprazole* (Omeprazole*) 20 Mg Capsule.dr, 40 MG PO BID, #60 CAP Prov:RICARDO ARREGUIN MD 11/13/16 Reported Medications Travoprost* (Travatan Z*) 2.5 Ml Drops, 1 DROP BOTH EYES HS, #1 BOTTLE 02/01/19 Gentamicin Sulfate* (Gentamicin Sulfate* Ophth) 0.3% - 5 Ml Drops, 1 DROP LEFT EYE Q4, EA 02/01/19 Peg 400/Hypromellose/Glycerin (EYE DROP TEARS) 15 Ml Drops, 1 DROP OP Q4 PRN for DRY EYES, BOTTLE 02/01/19 Cyclosporine (Restasis Multidose) 5.5 Ml Drops, 1 DROP OP BID, BOTTLE 02/01/19 Polyethylene Glycol* (Miralax*) 17 Gm Powd.pack, 17 GM PO DAILY, #30 PACKET 11/21/16 Potassium Chloride* (Potassium Chloride*) 8 Meq Capsule.er, 8 MEQ PO every other day, CAP 11/21/16 Docusate Sodium* (Colace*) 250 Mg Capsule, 250 MG PO DAILY, #30 CAP 11/21/16 Ferrous Sulfate* (Ferrous Sulfate*) 325 Mg Tabec, 325 MG PO BID, TAB 11/09/16 Levothyroxine Sodium* (Levothyroxine Sodium*) 75 Mcg Tablet, 75 MCG PO BEFORE BREAKFAST, #30 TAB 09/14/16 Sotalol Hcl* (Sotalol Hcl*) 80 Mg Tablet, 80 MG PO BID, TAB 09/14/16 Sitagliptin Phos/Metformin HCl (Janumet 50-500 mg Tablet) 1 Each Tablet, 1 EACH PO DAILY AM, TAB 09/14/16 Warfarin Sodium* (Coumadin*) 3 Mg Tablet, 3 MG PO DAILY, TAB 09/14/16 Medications Current Medications IV Flush (NS 3 ml) 3 ml PER PROTOCOL IV ; Start 02/01/19 at 05:00 Ondansetron HCl (Zofran Inj) 4 mg Q6H PRN IV NAUSEA/VOMITING; Start 02/01/19 at 05:00 Nitroglycerin (Nitroglycerin (Sl Tab) 0.4 Mg) 1 tab Q5M PRN SL .CHEST PAIN; Start 02/01/19 at 05:00 Acetaminophen (Tylenol Tab) 650 mg Q6H PRN PO .PAIN 1-3 OR TEMP; Start 02/01/19 at 05:00 Heparin Sodium (Porcine) (Heparin (5000 Units/1ml)) 5,000 unit Q12 SC Last administered on 02/01/19at 09:19; Admin Dose 5,000 UNIT; Start 02/01/19 at 09:00 Albuterol/ Ipratropium (Duoneb) 3 ml Q2H RESP THERAPY PRN HHN SHORTNESS OF BREATH; Start 02/01/19 at 05:00 Diagnostic Test (Pha) (Accu-Chek) 1 ea 02 XX ; Start 02/02/19 at 02:00 Insulin Glargine (Lantus) 10 units DAILY@2000 SC ; Start 02/01/19 at 20:00 Insulin Aspart (Novolog Insulin Pen) NOVOLOG *MILD* ALGORITHM WITH MEALS BEDTIME SC Last administered on 02/01/19 12:02; Admin Dose 2 UNIT; Start 02/01/19 at 08:00 Ferrous Sulfate (Ferrous Sulfate (Ec)) 325 mg BID PO Last administered on 02/01/19 09:07; Admin Dose 325 MG; Start 02/01/19 at 09:00 Hydrocodone Bit/ Homatropine Methylb (Hycodan Liquid) 5 ml DAILY PRN PO COUGH; Start 02/01/19 at 05:00 Levothyroxine Sodium (Synthroid) 75 mcg BEFORE BREAKFAST PO Last administered on 02/01/19 09:07; Admin Dose 75 MCG; Start 02/01/19 at 07:00 Lubiprostone (Amitiza) 24 mcg WITH BREAKFAST DINNE PO Last administered on 02/01/19 09:29; Admin Dose 24 MCG; Start 02/01/19 at 08:00 Meclizine HCl (Antivert) 25 mg TID PO Last administered on 02/01/19 13:00; Admin Dose 25 MG; Start 02/01/19 at 09:00 Polyethylene Glycol (Miralax) 17 gm DAILY PO Last administered on 02/01/19 09:07; Admin Dose 17 GM; Start 02/01/19 at 09:00 Sotalol HCl (Betapace) 40 mg BID PO Last administered on 02/01/19 09:29; Admin Dose 40 MG; Start 02/01/19 at 09:00 Warfarin Sodium (Coumadin) 3 mg DAILY@1700 PO ; Start 02/01/19 at 17:00 Pantoprazole (Protonix Tab) 40 mg DAILY@06 PO Last administered on 02/01/19 07:17; Admin Dose 40 MG; Start 02/01/19 at 06:00 Furosemide (Lasix) 20 mg BID DIURETICS PO ; Start 02/01/19 at 06:00 Miscellaneous Information 1 ea NOTE XX ; Start 02/01/19 at 05:30 Glucose (Glutose) 15 gm Q15M PRN PO DECREASED GLUCOSE; Start 02/01/19 at 05:30 Glucose (Glutose) 22.5 gm Q15M PRN PO DECREASED GLUCOSE; Start 02/01/19 at 05:30 Dextrose (D50w Syringe) 25 ml Q15M PRN IV DECREASED GLUCOSE; Start 02/01/19 at 05:30 Dextrose (D50w Syringe) 50 ml Q15M PRN IV DECREASED GLUCOSE; Start 02/01/19 at 05:30 Glucagon (Glucagen) 1 mg Q15M PRN IM DECREASED GLUCOSE; Start 02/01/19 at 05:30 Glucose (Glutose) 15 gm Q15M PRN BUCCAL DECREASED GLUCOSE; Start 02/01/19 at 05:30 Docusate Sodium (Colace Liquid Cup) 100 mg DAILY PO Last administered on 02/01/19at 14:31; Admin Dose 100 MG; Start 02/01/19 at 13:30 Allergies: Coded Allergies: No Known Allergy (Unverified , 12/18/17) Social History Smoking Status: Never smoker Exam/Review of Systems Vital Signs Vitals Vital Signs Date Temp Pulse Resp B/P (MAP) Pulse Ox O2 O2 Flow FiO2 Time Delivery Rate 02/01/19 98.1 60 20 142/66 100 15:31 (91) 02/01/19 Nasal 2.0 08:30 Cannula Exam Exam General: Elderly female no acute distress HEENT: NC/AT. Eyes are closed NECK: . no stridor. CV: RRR. systolic murmur; no gallop or rubs. PULM: no wheezing minimal rhonchi. GI: SOFT, NT, ND, no rebound or guarding Extremity: +B/L LE edema. no clubbing. neuro: Drowsy Psych: calm rectal: deferred : normal EKG done in the emergency room shows atrial paced rhythm with right bundle branch block Chest x-ray done in the emergency room shows: Findings suggesting mild CHF. Small bilateral pleural effusions. Cardiomegaly. Aortic atherosclerosis. Labs Result Diagram: 02/01/19 01502/01/19 0152 Results 24hrs Laboratory Tests Test 02/01/19 01:52 02/01/19 05:28 02/01/19 05:29 02/01/19 06:00 White Blood Count 11.4 #H Red Blood Count 3.45 #L Hemoglobin 11.0 #L Hematocrit 33.8 #L Mean Corpuscular Volume 98.0 Mean Corpuscular 31.9 Hemoglobin Mean Corpuscular 32.5 Hemoglobin Concent Red Cell Distribution 13.4 # Width Platelet Count 256 Mean Platelet Volume 10.8 #H Immature Granulocytes % 1.100 H Neutrophils % 82.3 H Lymphocytes % 7.1 L Monocytes % 8.8 Eosinophils % 0.3 Basophils % 0.4 Nucleated Red Blood 0.0 Cells % Immature Granulocytes # 0.130 H Neutrophils # 9.4 H Lymphocytes # 0.8 Monocytes # 1.0 H Eosinophils # 0.0 Basophils # 0.0 Nucleated Red Blood 0.0 Cells # Sodium Level 142 Potassium Level 5.0 Chloride Level 99 Carbon Dioxide Level 33 H Anion Gap 10 Blood Urea Nitrogen 67 H Creatinine 1.76 H Est Glomerular Filtrat Rate mL/min Glucose Level 175 Calcium Level 9.5 Total Bilirubin 0.3 Direct Bilirubin 0.00 Indirect Bilirubin 0.3 Aspartate Amino 33 Transf (AST/SGOT) Alanine 26 Aminotransferase (ALT/SG PT) Alkaline Phosphatase 106 Troponin I < 0.012 0.025 B-Type Natriuretic 98485 H Peptide Total Protein 7.5 Albumin 3.7 Globulin 3.80 H Albumin/Globulin Ratio 0.97 Creatine Kinase 21 L Creatine Kinase Index 2.0 Creatinine Kinase MB 0.42 (Mass) Thyroid Stimulating 0.942 Hormone (TSH) Prothrombin Time 20.0 H Prothrombin Time Ratio 1.6 INR International 1.69 Normalized Ratio Activated 44.7 H Partial Thromboplast Time Iron Level 23 L Total Iron Binding 196 L Capacity Percent Iron Saturation 12 L Ferritin 714.0 H Test 02/01/19 09:06 02/01/19 10:11 02/01/19 11:55 02/01/19 14:00 Bedside Glucose 144 213 Creatine Kinase < 20 L Creatine Kinase Index Creatinine Kinase MB 0.44 (Mass) Troponin I 0.015 Urine Random Creatinine 66.83 Urine Random Sodium < 13 L Urine Protein/Creatinine 0.31 Ratio Urine Total Protein 21.0 H Medications Medications Current Medications IV Flush (NS 3 ml) 3 ml PER PROTOCOL IV ; Start 02/01/19 at 05:00 Ondansetron HCl (Zofran Inj) 4 mg Q6H PRN IV NAUSEA/VOMITING; Start 02/01/19 at 05:00 Nitroglycerin (Nitroglycerin (Sl Tab) 0.4 Mg) 1 tab Q5M PRN SL .CHEST PAIN; Start 02/01/19 at 05:00 Acetaminophen (Tylenol Tab) 650 mg Q6H PRN PO .PAIN 1-3 OR TEMP; Start 02/01/19 at 05:00 Heparin Sodium (Porcine) (Heparin (5000 Units/1ml)) 5,000 unit Q12 SC Last administered on 02/01/19 09:19; Admin Dose 5,000 UNIT; Start 02/01/19 at 09:00 Albuterol/ Ipratropium (Duoneb) 3 ml Q2H RESP THERAPY PRN HHN SHORTNESS OF BREATH; Start 02/01/19 at 05:00 Diagnostic Test (Pha) (Accu-Chek) 1 ea 02 XX ; Start 02/02/19 at 02:00 Insulin Glargine (Lantus) 10 units DAILY@2000 SC ; Start 02/01/19 at 20:00 Insulin Aspart (Novolog Insulin Pen) NOVOLOG *MILD* ALGORITHM WITH MEALS BEDTIME SC Last administered on 02/01/19 12:02; Admin Dose 2 UNIT; Start 02/01/19 at 08:00 Ferrous Sulfate (Ferrous Sulfate (Ec)) 325 mg BID PO Last administered on 02/01/19 09:07; Admin Dose 325 MG; Start 02/01/19 at 09:00 Hydrocodone Bit/ Homatropine Methylb (Hycodan Liquid) 5 ml DAILY PRN PO COUGH; Start 02/01/19 at 05:00 Levothyroxine Sodium (Synthroid) 75 mcg BEFORE BREAKFAST PO Last administered on 02/01/19 09:07; Admin Dose 75 MCG; Start 02/01/19 at 07:00 Lubiprostone (Amitiza) 24 mcg WITH BREAKFAST DINNE PO Last administered on 02/01 09:29; Admin Dose 24 MCG; Start 02/01/19 at 08:00 Meclizine HCl (Antivert) 25 mg TID PO Last administered on 02/01/19 13:00; Admin Dose 25 MG; Start 02/01/19 at 09:00 Polyethylene Glycol (Miralax) 17 gm DAILY PO Last administered on 02/01/19at 09:07; Admin Dose 17 GM; Start 02/01/19 at 09:00 Sotalol HCl (Betapace) 40 mg BID PO Last administered on 02/01/19at 09:29; Admin Dose 40 MG; Start 02/01/19 at 09:00 Warfarin Sodium (Coumadin) 3 mg DAILY@1700 PO ; Start 02/01/19 at 17:00 Pantoprazole (Protonix Tab) 40 mg DAILY@06 PO Last administered on 02/01/19at 07:17; Admin Dose 40 MG; Start 02/01/19 at 06:00 Furosemide (Lasix) 20 mg BID DIURETICS PO ; Start 02/01/19 at 06:00 Miscellaneous Information 1 ea NOTE XX ; Start 02/01/19 at 05:30 Glucose (Glutose) 15 gm Q15M PRN PO DECREASED GLUCOSE; Start 02/01/19 at 05:30 Glucose (Glutose) 22.5 gm Q15M PRN PO DECREASED GLUCOSE; Start 02/01/19 at 05:30 Dextrose (D50w Syringe) 25 ml Q15M PRN IV DECREASED GLUCOSE; Start 02/01/19 at 05:30 Dextrose (D50w Syringe) 50 ml Q15M PRN IV DECREASED GLUCOSE; Start 02/01/19 at 05:30 Glucagon (Glucagen) 1 mg Q15M PRN IM DECREASED GLUCOSE; Start 02/01/19 at 05:30 Glucose (Glutose) 15 gm Q15M PRN BUCCAL DECREASED GLUCOSE; Start 02/01/19 at 05:30 Docusate Sodium (Colace Liquid Cup) 100 mg DAILY PO Last administered on 02/01/19at 14:31; Admin Dose 100 MG; Start 02/01/19 at 13:30 CLEO CENTENO MD Feb 01, 2019 16:06
[2019-02-01] MEDS ORDERED: GLYCERIN OP PRN (16:30)
[2019-02-01] MEDS ORDERED: PEG OP PRN (16:30)
[2019-02-01] MEDS ORDERED: HYPROMELLOSE OP PRN (16:30)
[2019-02-01] MEDS ORDERED: APIX2.5T PO (16:41)
[2019-02-01] MEDS: GENTAMICIN 0.3% 5 ML OPH LEFT EYE SCH ×2 (17:00→22:29)
[2019-02-01] MEDS ORDERED: WARFARIN 3 MG TAB PO SCH (17:00)
--- NOTE | 2019-02-01 18:25 | RADRPT ---
Echocardiogram Report Patient Name: Jossue RICKStient ID: [id number] : [id number] (88y 10m)Study Date: 02/01/2019 1:33:20 PM Gender: FAccession #: [id number] Tech: Freddie Phan [facility] Location: [facility] Ref.Physician: ANDREA KHAN Height(Cm): BSA: Weight(Kg): Quality: Technically Difficult StudyAccount #: Procedures: Echocardiographic Report: Transthoracic echocardiogram with complete 2D, M-Mode, and doppler examination. Indications: Congestive Heart Failure. Measurements: 2D/M Mode Doppler Measurement Value Normal Range Measurement Value Normal Range LVIDd 2D 4.6 [ 3.8 - 5.2 ] cm AV Peak Kristian 1.3 [ 100.0 - 170.0 ] cm/sec LVIDs 2D 2.9 [ 2.2 - 3.5 ] cm AV Peak PG 6.0 [ 2.0 - 9.0 ] mmHg LVPWd 2D 0.9 [ 0.6 - 0.9 ] cm LVOT Peak Kristian 0.9 [ 70.0 - 110.0 ] cm/sec IVSd 2D 0.9 [ 0.6 - 0.9 ] cm LVOT Peak PG 3.0 [ 2.0 - 6.0 ] mmHg AoR Diam 2D 2.8 [ 2.3 - 3.1 ] cm MV E Peak Kristian 0.8 [ 60.0 - 130.0 ] cm/sec EDV 2D 94.9 [ 46.0 - 106.0 ] ml MV A Peak Kristian 0.4 [ 100.0 - 120.0 ] cm/sec ESV 2D 31.9 [ 14.0 - 42.0 ] ml MV E/A 2.1 [ 0.8 - 1.5 ] ratio EF 2D 66.4 [ 54.0 - 74.0 ] percent MV Decel Time 162 [ 104 - 258 ] msec LA Dimen 2D 4.6 [ 2.7 - 3.8 ] cm Lat E` Kristian 0.1 [ 10.0 - 15.0 ] cm/sec Lateral E/E` 14.0 [ 1.0 - 2.0 ] ratio Med E` Kristian 0.1 cm/sec MV E/A 2.1 [ 0.8 - 1.5 ] ratio TAPSE 2.4 [ 1.7 - 3.0 ] cm TR Peak Kristian 3.2 [ 100.0 - 280.0 ] cm/sec TR Peak PG 41.0 mmHg RVSP 51.0 [ 10.0 - 36.0 ] mmHg Findings: Left Ventricle: Normal left ventricular systolic function. Normal left ventricular cavity size. Normal left ventricular wall thickness. Ejection fraction is visually estimated at 60 %. Tissue Doppler/Mitral Doppler indices are consistent with pseudonormalization with mildly elevated left atrial pressure (Stage II diastolic dysfunction). Right Ventricle: Normal right ventricular systolic function. Moderate enlargement of right ventricle. Pacemaker right heart. Left Atrium: There is moderate enlargement of left atrium. Right Atrium: There is severe enlargement of right atrium. Mitral Valve: Mild mitral leaflet calcification. Mild mitral annular calcification. Mild mitral valve regurgitation. The regurgitation jet is eccentrically directed which may underestimate the severity of mitral regurgitation. Aortic Valve: Aortic sclerosis without significant stenosis. Aortic cusps appear mildly calcified. Trileaflet aortic valve. Mild aortic valve regurgitation. Tricuspid Valve: Normal appearance of the tricuspid valve. Estimated peak PA systolic pressure 51 mmHg. There is mild to moderate tricuspid regurgitation. Pulmonic Valve: Pulmonic valve not well visualized. There is mild pulmonic regurgitation. Pericardium: Normal pericardium with no significant pericardial effusion. Aorta: Normal aortic root. IVC: Normal size and normal respiratory collapse consistent with normal right atrial pressure. Conclusions: Normal right ventricular systolic function. Moderate enlargement of right ventricle. Pacemaker right heart. There is severe enlargement of right atrium. There is moderate enlargement of left atrium. Normal left ventricular systolic function. Normal left ventricular cavity size. Normal left ventricular wall thickness. Ejection fraction is visually estimated at 60 %. Tissue Doppler/Mitral Doppler indices are consistent with pseudonormalization with mildly elevated left atrial pressure (Stage II diastolic dysfunction). Mild mitral leaflet calcification. Mild mitral annular calcification. Mild mitral valve regurgitation. The regurgitation jet is eccentrically directed which may underestimate the severity of mitral regurgitation. Aortic sclerosis without significant stenosis. Aortic cusps appear mildly calcified. Trileaflet aortic valve. Mild aortic valve regurgitation. Normal appearance of the tricuspid valve. Estimated peak PA systolic pressure 51 mmHg. There is mild to moderate tricuspid regurgitation. Electronically Signed By: Carlos Perez 2019-02-01 18:24:51 PST
[2019-02-01] MEDS: APIXABAN 5 MG TABLET PO SCH (22:28)
[2019-02-01] MEDS: PATIENT'S OWN MEDICATION BOTH EYES SCH ×2 (22:30)
[2019-02-01] MEDS: INSULIN GLARGINE [LANTus] (100 UNITS/ML) SYG SC SCH (22:52)
[2019-02-02] VITALS (10 sets, daily range): BP systolic 95–158; BP diastolic 46–62; PULSE 60–78; RESP 19–20
[2019-02-02] MEDS: GENTAMICIN 0.3% 5 ML OPH LEFT EYE SCH ×3 (00:56→09:45)
[2019-02-02] MEDS: ACCU-CHEK XX SCH (02:00)
[2019-02-02] MEDS: BENZONATATE 100 MG CAP PO PRN ×2 (03:35→09:49)
[2019-02-02] MEDS: ACETYLCYSTEINE 20% 4 ML VIAL NEB SCH ×4 (04:41→20:17)
[2019-02-02] MEDS: LEVOTHYROXINE 75 MCG TAB PO SCH (05:10)
[2019-02-02] MEDS: PANTOPRAZOLE (EC) 40 MG TAB PO SCH (05:10)
[2019-02-02] MEDS ORDERED: VANCOMYCIN IV PER PHARMACY XX SCH (06:30)
[2019-02-02] MEDS: INSULIN ASPART [NOVOLOG] 3 ML PEN SC SCH ×4 (08:00→21:00)
[2019-02-02] MEDS: LUBIPROSTONE 24 MCG CAP PO SCH ×2 (08:00→17:28)
[2019-02-02] MEDS: HEPARIN 5,000 UNIT/1 ML VIAL SC SCH (08:55)
[2019-02-02] MEDS ORDERED: VANCOMYCIN 1 GM 250 ML IVPB SCH (09:00)
[2019-02-02] MEDS ORDERED: FUROSEMIDE 20 MG INJ IV SCH (09:00)
[2019-02-02] MEDS: PATIENT'S OWN MEDICATION BOTH EYES SCH ×3 (09:43→21:00)
[2019-02-02] MEDS: DOCUSATE SODIUM 10 MG/ML (10ML CUP) PO SCH (09:48)
[2019-02-02] MEDS: POLYETHYLENE GLYCOL 17 GM PACKET PO SCH (09:48)
[2019-02-02] MEDS: FERROUS SULFATE (EC) 325 MG TAB PO SCH ×2 (09:49→21:00)
[2019-02-02] MEDS: APIXABAN 5 MG TABLET PO SCH ×2 (09:49→21:00)
[2019-02-02] MEDS: MECLIZINE 25 MG TAB PO SCH ×3 (09:49→21:00)
[2019-02-02] MEDS: SOTALOL 80 MG TAB PO SCH ×2 (09:50→21:00)
[2019-02-02] MEDS: PIPER-TAZO 3.375 GM IV (PMX) 100 ML IVPB SCH ×3 (09:52→22:02)
[2019-02-02] MEDS ORDERED: CARBOXYMETHYLCELLULOSE 0.5% 0.4 ML OPH BOTH EYES PRN (10:00)
--- NOTE | 2019-02-02 10:17 | CONS ---
Assessment/Plan Assessment/Plan Assessment/Plan (Daily) Serial chest x-rays were reviewed which is showing increasing bilateral lower lobe infiltrates. Assessment recommendations; 1. Patient admitted with what appears to be bilateral lower lobe pneumonia possibly aspiration currently on appropriate antimicrobial regimen. 2. Other comorbidities include history of chronic atrial fibrillation, chronic renal insufficiency, chronic anemia, hypothyroidism and diabetes. 3. Currently there is no clinical indication to suggest congestive heart failure, patient did have an echocardiogram done which is essentially unremarkable except for evidence of right ventricular strain possibly indicative of underlying pulmonary hypertension. 4. Dementia. Obtain ABG. Discontinue Lasix. In view of increased right ventricular pressures, patient would be at high risk for decompensation if she is diuresed aggressively. Obtain follow-up chest x-ray in 48 hours. Further recommendations once ABG is performed. Consultation Date/Type/Reason Admit Date/Time 02/01/19 Date of Consultation: Feb 02, 2019 Type of Consult Pulmonary Pulmonary consult requested for evaluation of hypoxemia. Patient is a 88-year-old lady who was admitted to the hospital brought in from home with complaints of shortness of breath. Upon evaluation patient be diagnosed with pneumonia as well as possible CHF. Patient has been started on appropriate antimicrobial regimen as well as intravenous Lasix. The patient is quite lethargic and according to the patient's daughter who was present in the room the patient has been regular for the last 2 months and was recently admitted to skilled nursing from [facility] where she was admitted couple of weeks ago patient however did not appear to be in any distress.. History was obtained from medical records as well as from patient's daughter who was present in the room. Past medical history; 1. Chronic atrial fibrillation 2. Diabetes. 3. Chronic renal insufficiency. 4. Hypothyroidism. 5. Chronic anemia. 6. Questionable CHF. Medications; reviewed. Allergies; none. Social history; noncontributory. Family history; patient is a , has supportive family. Lives with her daughter. 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 Review of system; unable to be obtained. General exam; elderly female, awake, somewhat responsive currently no distress. Date/Time of Note DATE: 02/02/19 TIME: 10:12 Past Medical History Medical History: other (CHF, atrial fibrillation, diabetes, hypothyroidism, CKD, GI bleed, pacemaker, ESBL UTI.) Home Meds Active Scripts Neomycin/Polymyxin/Hydrocort* (Cortisporin* Otic) 10 Ml Susp, 4 DROP RIGHT EAR QID for 7 Days, EA Prov:PORIFRIO KHANNAGavino DO 12/19/17 Meclizine Hcl* (Meclizine Hcl*) 25 Mg Tablet, 25 MG PO TID for vertigo, #30 TAB Prov:PORFIRIO KHANNA. DO 12/19/17 Levofloxacin* (Levaquin*) 500 Mg Tablet, 500 MG PO DAILY for 7 Days, TAB Prov:PORFIRIO KHANNA. DO 12/19/17 Polyethylene Glycol* (Miralax*) 17 Gm Powd.pack, 17 GM PO DAILY for 10 Days Prov:HERSON DAVIS MD 11/27/16 Lubiprostone* (Amitiza*) 24 Mcg Capsule, 24 MCG PO WITH BREAKFAST DINNE for 28 Days, CAP Prov:HERSON DAVIS MD 11/27/16 Ipratropium-Albuterol (Ipratropium-Albuterol) 0.5-3 Mg/3 Ml Ampul.neb, 3 ML HHN Q2H RESP THERAPY PRN for SHORTNESS OF BREATH for 28 Days Prov:HERSON DAVIS MD 11/27/16 Hydrocodone-Homatropine* (Hydrocodone-Homatropine*) 5MG-1.5MG/5 Ml Syrup, 5 ML PO PRN PRN for COUGH for 14 Days Prov:HERSON DAVIS MD 11/27/16 Doxycycline Hyclate* (Doxycycline Hyclate*) 100 Mg Tablet., 100 MG PO BID for pneumonia+ bronchitis , #14 TAB Prov:KEVIN ZHOU MD 11/23/16 Furosemide* (Lasix*) 20 Mg Tablet, 20 MG PO QAM, #90 TAB Prov:KEVIN ZHOU MD 11/23/16 Omeprazole* (Omeprazole*) 20 Mg Capsule., 40 MG PO BID, #60 CAP Prov:RICARDO ARREGUIN MD 11/13/16 Reported Medications Apixaban* (Eliquis*) 2.5 Mg Tablet, 2.5 MG PO BID, TAB 02/01/19 Travoprost* (Travatan Z*) 2.5 Ml Drops, 1 DROP BOTH EYES HS, #1 BOTTLE 02/01/19 Gentamicin Sulfate* (Gentamicin Sulfate* Ophth) 0.3% - 5 Ml Drops, 1 DROP LEFT EYE Q4, EA 02/01/19 Peg 400/Hypromellose/Glycerin (EYE DROP TEARS) 15 Ml Drops, 1 DROP OP Q4 PRN for DRY EYES, BOTTLE 02/01/19 Cyclosporine (Restasis Multidose) 5.5 Ml Drops, 1 DROP OP BID, BOTTLE 02/01/19 Polyethylene Glycol* (Miralax*) 17 Gm Powd.pack, 17 GM PO DAILY, #30 PACKET 11/21/16 Potassium Chloride* (Potassium Chloride*) 8 Meq Capsule.er, 8 MEQ PO every other day, CAP 11/21/16 Docusate Sodium* (Colace*) 250 Mg Capsule, 250 MG PO DAILY, #30 CAP 11/21/16 Ferrous Sulfate* (Ferrous Sulfate*) 325 Mg Tabec, 325 MG PO BID, TAB 11/09/16 Levothyroxine Sodium* (Levothyroxine Sodium*) 75 Mcg Tablet, 75 MCG PO BEFORE BREAKFAST, #30 TAB 09/14/16 Sotalol Hcl* (Sotalol Hcl*) 80 Mg Tablet, 80 MG PO BID, TAB 09/14/16 Sitagliptin Phos/Metformin HCl (Janumet 50-500 mg Tablet) 1 Each Tablet, 1 EACH PO DAILY AM, TAB 09/14/16 Warfarin Sodium* (Coumadin*) 3 Mg Tablet, 3 MG PO DAILY, TAB 09/14/16 Medications Current Medications IV Flush (NS 3 ml) 3 ml PER PROTOCOL IV ; Start 02/01/19 at 05:00 Ondansetron HCl (Zofran Inj) 4 mg Q6H PRN IV NAUSEA/VOMITING; Start 02/01/19 at 05:00 Nitroglycerin (Nitroglycerin (Sl Tab) 0.4 Mg) 1 tab Q5M PRN SL .CHEST PAIN; Start 02/01/19 at 05:00 Acetaminophen (Tylenol Tab) 650 mg Q6H PRN PO .PAIN 1-3 OR TEMP; Start 02/01/19 at 05:00 Heparin Sodium (Porcine) (Heparin (5000 Units/1ml)) 5,000 unit Q12 SC Last administered on 02/02/19at 08:55; Admin Dose 5,000 UNIT; Start 02/01/19 at 09:00 Albuterol/ Ipratropium (Duoneb) 3 ml Q2H RESP THERAPY PRN HHN SHORTNESS OF BREATH Last administered on 02/02/19 04:30; Admin Dose 3 ML; Start 02/01/19 at 05:00 Diagnostic Test (Pha) (Accu-Chek) 1 ea 02 XX ; Start 02/02/19 at 02:00 Insulin Glargine (Lantus) 10 units DAILY@2000 SC Last administered on 02/01/19 22:52; Admin Dose 10 UNITS; Start 02/01/19 at 20:00 Insulin Aspart (Novolog Insulin Pen) NOVOLOG *MILD* ALGORITHM WITH MEALS BEDTIME SC Last administered on 02/01/19 16:57; Admin Dose 2 UNIT; Start 02/01/19 at 08:00 Ferrous Sulfate (Ferrous Sulfate (Ec)) 325 mg BID PO Last administered on 02/02/19 09:49; Admin Dose 325 MG; Start 02/01/19 at 09:00 Hydrocodone Bit/ Homatropine Methylb (Hycodan Liquid) 5 ml DAILY PRN PO COUGH; Start 02/01/19 at 05:00 Levothyroxine Sodium (Synthroid) 75 mcg BEFORE BREAKFAST PO Last administered on 02/01/19 09:07; Admin Dose 75 MCG; Start 02/01/19 at 07:00 Lubiprostone (Amitiza) 24 mcg WITH BREAKFAST DINNE PO Last administered on 02/01/19 17:43; Admin Dose 24 MCG; Start 02/01/19 at 08:00 Meclizine HCl (Antivert) 25 mg TID PO Last administered on 02/02/19 09:49; Admin Dose 25 MG; Start 02/01/19 at 09:00 Polyethylene Glycol (Miralax) 17 gm DAILY PO Last administered on 02/02/19 09:48; Admin Dose 17 GM; Start 02/01/19 at 09:00 Sotalol HCl (Betapace) 40 mg BID PO Last administered on 02/02/19 09:50; Admin Dose 40 MG; Start 02/01/19 at 09:00 Pantoprazole (Protonix Tab) 40 mg DAILY@06 PO Last administered on 02/01/19 07:17; Admin Dose 40 MG; Start 02/01/19 at 06:00 Miscellaneous Information 1 ea NOTE XX ; Start 02/01/19 at 05:30 Glucose (Glutose) 15 gm Q15M PRN PO DECREASED GLUCOSE; Start 02/01/19 at 05:30 Glucose (Glutose) 22.5 gm Q15M PRN PO DECREASED GLUCOSE; Start 02/01/19 at 05:30 Dextrose (D50w Syringe) 25 ml Q15M PRN IV DECREASED GLUCOSE; Start 02/01/19 at 05:30 Dextrose (D50w Syringe) 50 ml Q15M PRN IV DECREASED GLUCOSE; Start 02/01/19 at 05:30 Glucagon (Glucagen) 1 mg Q15M PRN IM DECREASED GLUCOSE; Start 02/01/19 at 05:30 Glucose (Glutose) 15 gm Q15M PRN BUCCAL DECREASED GLUCOSE; Start 02/01/19 at 05:30 Docusate Sodium (Colace Liquid Cup) 100 mg DAILY PO Last administered on 02/02/19 09:48; Admin Dose 100 MG; Start 02/01/19 at 13:30 Gentamicin Sulfate (Gentamicin 0.3% Oph Drop) 1 drop Q4 LEFT EYE Last administered on 02/02/19 09:45; Admin Dose 1 DROP; Start 02/01/19 at 17:00 Patient Own Medication 1 ea HS BOTH EYES Last administered on 02/01/19 22:30; Admin Dose 1 EA; Start 02/01/19 at 21:00 Patient Own Medication 1 ea BID BOTH EYES Last administered on 02/02/19 09:43; Admin Dose 1 EA; Start 02/01/19 at 21:00 Apixaban (Eliquis) 2.5 mg BID PO Last administered on 02/02/19 09:49; Admin Dose 2.5 MG; Start 02/01/19 at 21:00 Benzonatate (Tessalon) 100 mg TID PRN PO COUGH Last administered on 02/02/19 09:49; Admin Dose 100 MG; Start 02/02/19 at 02:30 Acetylcysteine (Mucomyst) 3 ml Q6H RESP THERAPY NEB Last administered on 02/02/19 04:41; Admin Dose 3 ML; Start 02/02/19 at 04:30; Stop 02/03/19 at 04:29 Furosemide (Lasix) 20 mg DAILY IV Last administered on 3/5/19at 08:50; Admin Dose 20 MG; Start 02/02/19 at 09:00 Piperacillin Sod/ Tazobactam Sod 100 ml @ 25 mls/hr Q8 IVPB Last administered on 02/02/19at 09:52; Admin Dose 25 MLS/HR; Start 02/02/19 at 09:01 Vancomycin HCl (Vanco Iv Per Pharmacy) VANCOMYCIN PER PHARMACY PER PROTOCOL XX ; Start 02/02/19 at 06:30 Eye Lubricant (Refresh Plus) 1 drop Q4H PRN BOTH EYES .DRY EYES; Start 02/02/19 at 10:00 Vancomycin HCl 250 ml @ 125 mls/hr ONCE IVPB Last administered on 02/02/19at 08:48; Admin Dose 125 MLS/HR; Start 02/02/19 at 09:00; Stop 02/02/19 at 10:59 Allergies: Coded Allergies: No Known Allergy (Unverified , 12/18/17) Past Surgical History Past Surgical Hx: other Social History Alcohol Use: none Smoking Status: Never smoker Drug Use: none Exam/Review of Systems Exam Vitals Vital Signs Date Temp Pulse Resp B/P (MAP) Pulse Ox O2 O2 Flow FiO2 Time Delivery Rate 02/02/19 61 08:01 02/02/19 98.5 20 114/59 98 07:22 (77) 02/02/19 3.0 30 04:35 02/02/19 Nasal 04:30 Cannula Intake and Output 02/01/19 02/01/19 02/02/19 1515:00 23:00 07:00 IntakeIntake Total 650 ml 200 ml OutputOutput Total 450 ml 600 ml BalanceBalance 200 ml -400 ml Exam HEENT exam; supple neck, no JVD. No lymphadenopathy. Midline trachea. No thyromegaly. There is mild drooling noted. Patient has a multiple carious teeth. Chest exam; diminished but clear breath sounds. S1-S2 audible, no murmurs. Irregular rhythm. Abdomen exam; soft, no organomegaly. Nondistended. Bowel sounds audible. Extremity exam; no edema clubbing. Patient does have patchy ecchymosis. [employer] SERVICES ANALY[employer] exam; patient is awake but appears quite lethargic. Results Result Diagram: 02/02/19 0523 02/02/19 0523 Results 24hrs Laboratory Tests Test 02/01/19 11:55 02/01/19 14:00 02/01/19 16:50 02/01/19 22:32 Bedside Glucose 213 181 161 Urine Eosinophils % 0.0 Urine Random Creatinine 66.83 Urine Random Sodium < 13 L Urine Protein/Creatinine 0.31 Ratio Urine Total Protein 21.0 H Test 02/02/19 05:23 02/02/19 07:52 White Blood Count 13.0 H Red Blood Count 3.39 L Hemoglobin 10.9 L Hematocrit 32.6 L Mean Corpuscular Volume 96.2 Mean Corpuscular 32.2 Hemoglobin Mean Corpuscular 33.4 Hemoglobin Concent Red Cell Distribution 13.4 Width Platelet Count 277 Mean Platelet Volume 11.0 H Immature Granulocytes % 1.000 H Neutrophils % Lymphocytes % Monocytes % Eosinophils % Basophils % Nucleated Red Blood 0.0 Cells % Immature Granulocytes # 0.130 H Neutrophils # Lymphocytes # Monocytes # Eosinophils # Basophils # Nucleated Red Blood Cells # Prothrombin Time 21.5 H Prothrombin Time Ratio 1.7 INR International 1.86 Normalized Ratio Sodium Level 141 Potassium Level 4.1 Chloride Level 98 Carbon Dioxide Level 33 H Anion Gap 10 Blood Urea Nitrogen 49 #H Creatinine 1.54 H Est Glomerular Filtrat Rate mL/min Glucose Level 167 Hemoglobin A1c 7.0 H Uric Acid 9.9 H Calcium Level 9.3 Magnesium Level 1.8 Total Bilirubin 0.4 Direct Bilirubin 0.00 Indirect Bilirubin 0.4 Aspartate Amino 30 Transf (AST/SGOT) Alanine 21 Aminotransferase (ALT/SG PT) Alkaline Phosphatase 126 H Creatine Kinase < 20 L B-Type Natriuretic 8970 H Peptide Total Protein 7.1 Albumin 3.4 Globulin 3.70 H Albumin/Globulin Ratio 0.91 Triglycerides Level 125 Cholesterol Level 126 LDL Cholesterol, 71 Calculated HDL Cholesterol 30 L Cholesterol/HDL Ratio 4.2 Bedside Glucose 164 Medications Medication Current Medications IV Flush (NS 3 ml) 3 ml PER PROTOCOL IV ; Start 02/01/19 at 05:00 Ondansetron HCl (Zofran Inj) 4 mg Q6H PRN IV NAUSEA/VOMITING; Start 02/01/19 at 05:00 Nitroglycerin (Nitroglycerin (Sl Tab) 0.4 Mg) 1 tab Q5M PRN SL .CHEST PAIN; Start 02/01/19 at 05:00 Acetaminophen (Tylenol Tab) 650 mg Q6H PRN PO .PAIN 1-3 OR TEMP; Start 02/01/19 at 05:00 Heparin Sodium (Porcine) (Heparin (5000 Units/1ml)) 5,000 unit Q12 SC Last administered on 02/02/19 08:55; Admin Dose 5,000 UNIT; Start 02/01/19 at 09:00 Albuterol/ Ipratropium (Duoneb) 3 ml Q2H RESP THERAPY PRN HHN SHORTNESS OF BREATH Last administered on 02/02/19 04:30; Admin Dose 3 ML; Start 02/01/19 at 05:00 Diagnostic Test (Pha) (Accu-Chek) 1 ea 02 XX ; Start 02/02/19 at 02:00 Insulin Glargine (Lantus) 10 units DAILY@2000 SC Last administered on 02/01/19 22:52; Admin Dose 10 UNITS; Start 02/01/19 at 20:00 Insulin Aspart (Novolog Insulin Pen) NOVOLOG *MILD* ALGORITHM WITH MEALS BEDTIME SC Last administered on 02/01/19 16:57; Admin Dose 2 UNIT; Start 02/01/19 at 08:00 Ferrous Sulfate (Ferrous Sulfate (Ec)) 325 mg BID PO Last administered on 02/02/19 09:49; Admin Dose 325 MG; Start 02/01/19 at 09:00 Hydrocodone Bit/ Homatropine Methylb (Hycodan Liquid) 5 ml DAILY PRN PO COUGH; Start 02/01/19 at 05:00 Levothyroxine Sodium (Synthroid) 75 mcg BEFORE BREAKFAST PO Last administered on 02/01/19 09:07; Admin Dose 75 MCG; Start 02/01/19 at 07:00 Lubiprostone (Amitiza) 24 mcg WITH BREAKFAST DINNE PO Last administered on 02/01/19 17:43; Admin Dose 24 MCG; Start 02/01/19 at 08:00 Meclizine HCl (Antivert) 25 mg TID PO Last administered on 02/02/19 09:49; Admin Dose 25 MG; Start 02/01/19 at 09:00 Polyethylene Glycol (Miralax) 17 gm DAILY PO Last administered on 02/02/19 09:48; Admin Dose 17 GM; Start 02/01/19 at 09:00 Sotalol HCl (Betapace) 40 mg BID PO Last administered on 3/5/19at 09:50; Admin Dose 40 MG; Start 02/01/19 at 09:00 Pantoprazole (Protonix Tab) 40 mg DAILY@06 PO Last administered on 02/01/19 07:17; Admin Dose 40 MG; Start 02/01/19 at 06:00 Miscellaneous Information 1 ea NOTE XX ; Start 02/01/19 at 05:30 Glucose (Glutose) 15 gm Q15M PRN PO DECREASED GLUCOSE; Start 02/01/19 at 05:30 Glucose (Glutose) 22.5 gm Q15M PRN PO DECREASED GLUCOSE; Start 02/01/19 at 05:30 Dextrose (D50w Syringe) 25 ml Q15M PRN IV DECREASED GLUCOSE; Start 02/01/19 at 05:30 Dextrose (D50w Syringe) 50 ml Q15M PRN IV DECREASED GLUCOSE; Start 02/01/19 at 05:30 Glucagon (Glucagen) 1 mg Q15M PRN IM DECREASED GLUCOSE; Start 02/01/19 at 05:30 Glucose (Glutose) 15 gm Q15M PRN BUCCAL DECREASED GLUCOSE; Start 02/01/19 at 05:30 Docusate Sodium (Colace Liquid Cup) 100 mg DAILY PO Last administered on 02/02/19 09:48; Admin Dose 100 MG; Start 02/01/19 at 13:30 Gentamicin Sulfate (Gentamicin 0.3% Oph Drop) 1 drop Q4 LEFT EYE Last administered on 02/02/19 09:45; Admin Dose 1 DROP; Start 02/01/19 at 17:00 Patient Own Medication 1 ea HS BOTH EYES Last administered on 02/01/19 22:30; Admin Dose 1 EA; Start 02/01/19 at 21:00 Patient Own Medication 1 ea BID BOTH EYES Last administered on 02/02/19 09:43; Admin Dose 1 EA; Start 02/01/19 at 21:00 Apixaban (Eliquis) 2.5 mg BID PO Last administered on 02/02/19 09:49; Admin Dose 2.5 MG; Start 02/01/19 at 21:00 Benzonatate (Tessalon) 100 mg TID PRN PO COUGH Last administered on 02/02/19 09:49; Admin Dose 100 MG; Start 02/02/19 at 02:30 Acetylcysteine (Mucomyst) 3 ml Q6H RESP THERAPY NEB Last administered on 02/02/19at 04:41; Admin Dose 3 ML; Start 02/02/19 at 04:30; Stop 02/03/19 at 04:29 Furosemide (Lasix) 20 mg DAILY IV Last administered on 02/02/19at 08:50; Admin Dose 20 MG; Start 02/02/19 at 09:00 Piperacillin Sod/ Tazobactam Sod 100 ml @ 25 mls/hr Q8 IVPB Last administered on 02/02/19at 09:52; Admin Dose 25 MLS/HR; Start 02/02/19 at 09:01 Vancomycin HCl (Vanco Iv Per Pharmacy) VANCOMYCIN PER PHARMACY PER PROTOCOL XX ; Start 02/02/19 at 06:30 Eye Lubricant (Refresh Plus) 1 drop Q4H PRN BOTH EYES .DRY EYES; Start 02/02/19 at 10:00 Vancomycin HCl 250 ml @ 125 mls/hr ONCE IVPB Last administered on 02/02/19at 08:48; Admin Dose 125 MLS/HR; Start 02/02/19 at 09:00; Stop 02/02/19 at 10:59 DENTON ACHARYA Feb 02, 2019 10:17
--- NOTE | 2019-02-02 10:24 | CONS ---
Consult Date/Type/Reason Admit Date/Time Feb 02, 2019 at 10:08 Initial Consult Date 02/02/19 Requesting Provider: ANDREA KHAN NP Date/Time of Note DATE: 02/02/19 TIME: 10:20 Subjective NO acute events - pt stable - paced on tele, reasonable fluid status. Family at bedside - plan for swallow eval today. ROS: No fever, no chills, no nausea, no vomiting, no diarrhea/constipation No recent weight changes No chest pain, no PND, no orthopnea- chronic SOB + fatigue No dizziness, blurred vision No thirst, no heat or cold intolerance Objective Vitals Vital Signs Date Temp Pulse Resp B/P (MAP) Pulse Ox O2 O2 Flow FiO2 Time Delivery Rate 02/02/19 61 08:01 02/02/19 98.5 20 114/59 98 07:22 (77) 02/02/19 3.0 30 04:35 02/02/19 Nasal 04:30 Cannula Intake and Output 02/01/19 02/01/19 02/02/19 1515:00 23:00 07:00 IntakeIntake Total 650 ml 200 ml OutputOutput Total 450 ml 600 ml BalanceBalance 200 ml -400 ml Exam General: WN/WD/NAD, AOx 1-2 HEENT: Unicetric/atraumatic/EOMI (follows commands) NECK: JVD elevated, no thyromegaly Lymph: no lymphadenopathy HEART: regular with no S3, II/ systolic murmur at apex, pacer LUNGS: Coarse sounds ABD: soft, NT, ND, +BS : Intact Neuro: non focal SKIN: chronic changes EXT: trace edema Results/Medications Result Diagram: 02/02/19 0523 02/02/19 0523 Results 24 hrs Laboratory Tests Test 02/01/19 11:55 02/01/19 14:00 02/01/19 16:50 02/01/19 22:32 Bedside Glucose 213 181 161 Urine Eosinophils % 0.0 Urine Random Creatinine 66.83 Urine Random Sodium < 13 L Urine Protein/Creatinine 0.31 Ratio Urine Total Protein 21.0 H Test 02/02/19 05:23 02/02/19 07:52 White Blood Count 13.0 H Red Blood Count 3.39 L Hemoglobin 10.9 L Hematocrit 32.6 L Mean Corpuscular Volume 96.2 Mean Corpuscular 32.2 Hemoglobin Mean Corpuscular 33.4 Hemoglobin Concent Red Cell Distribution 13.4 Width Platelet Count 277 Mean Platelet Volume 11.0 H Immature Granulocytes % 1.000 H Neutrophils % Lymphocytes % Monocytes % Eosinophils % Basophils % Nucleated Red Blood 0.0 Cells % Immature Granulocytes # 0.130 H Neutrophils # Lymphocytes # Monocytes # Eosinophils # Basophils # Nucleated Red Blood Cells # Prothrombin Time 21.5 H Prothrombin Time Ratio 1.7 INR International 1.86 Normalized Ratio Sodium Level 141 Potassium Level 4.1 Chloride Level 98 Carbon Dioxide Level 33 H Anion Gap 10 Blood Urea Nitrogen 49 #H Creatinine 1.54 H Est Glomerular Filtrat Rate mL/min Glucose Level 167 Hemoglobin A1c 7.0 H Uric Acid 9.9 H Calcium Level 9.3 Magnesium Level 1.8 Total Bilirubin 0.4 Direct Bilirubin 0.00 Indirect Bilirubin 0.4 Aspartate Amino 30 Transf (AST/SGOT) Alanine 21 Aminotransferase (ALT/SG PT) Alkaline Phosphatase 126 H Creatine Kinase < 20 L B-Type Natriuretic 8970 H Peptide Total Protein 7.1 Albumin 3.4 Globulin 3.70 H Albumin/Globulin Ratio 0.91 Triglycerides Level 125 Cholesterol Level 126 LDL Cholesterol, 71 Calculated HDL Cholesterol 30 L Cholesterol/HDL Ratio 4.2 Bedside Glucose 164 Home Meds Active Scripts Neomycin/Polymyxin/Hydrocort* (Cortisporin* Otic) 10 Ml Susp, 4 DROP RIGHT EAR QID for 7 Days, EA Prov:PORFIRIO KHANNA DO 12/19/17 Meclizine Hcl* (Meclizine Hcl*) 25 Mg Tablet, 25 MG PO TID for vertigo, #30 TAB Prov:PORFIRIO KHANNA DO 12/19/17 Levofloxacin* (Levaquin*) 500 Mg Tablet, 500 MG PO DAILY for 7 Days, TAB Prov:PORFIRIO KHANNA DO 12/19/17 Polyethylene Glycol* (Miralax*) 17 Gm Powd.pack, 17 GM PO DAILY for 10 Days Prov:HERSON DAVIS MD 11/27/16 Lubiprostone* (Amitiza*) 24 Mcg Capsule, 24 MCG PO WITH BREAKFAST DINNE for 28 Days, CAP Prov:HERSON DAVIS MD 11/27/16 Ipratropium-Albuterol (Ipratropium-Albuterol) 0.5-3 Mg/3 Ml Ampul.neb, 3 ML HHN Q2H RESP THERAPY PRN for SHORTNESS OF BREATH for 28 Days Prov:HERSON DAVIS MD 11/27/16 Hydrocodone-Homatropine* (Hydrocodone-Homatropine*) 5MG-1.5MG/5 Ml Syrup, 5 ML PO PRN PRN for COUGH for 14 Days Prov:HERSON DAVIS MD 11/27/16 Doxycycline Hyclate* (Doxycycline Hyclate*) 100 Mg Tablet., 100 MG PO BID for pneumonia+ bronchitis , #14 TAB Prov:KEVIN ZHOU MD 11/23/16 Furosemide* (Lasix*) 20 Mg Tablet, 20 MG PO QAM, #90 TAB Prov:KEVIN ZHOU MD 11/23/16 Omeprazole* (Omeprazole*) 20 Mg Capsule.dr, 40 MG PO BID, #60 CAP Prov:RICARDO ARREGUIN MD 11/13/16 Reported Medications Apixaban* (Eliquis*) 2.5 Mg Tablet, 2.5 MG PO BID, TAB 02/01/19 Travoprost* (Travatan Z*) 2.5 Ml Drops, 1 DROP BOTH EYES HS, #1 BOTTLE 02/01/19 Gentamicin Sulfate* (Gentamicin Sulfate* Ophth) 0.3% - 5 Ml Drops, 1 DROP LEFT EYE Q4, EA 02/01/19 Peg 400/Hypromellose/Glycerin (EYE DROP TEARS) 15 Ml Drops, 1 DROP OP Q4 PRN for DRY EYES, BOTTLE 02/01/19 Cyclosporine (Restasis Multidose) 5.5 Ml Drops, 1 DROP OP BID, BOTTLE 02/01/19 Polyethylene Glycol* (Miralax*) 17 Gm Powd.pack, 17 GM PO DAILY, #30 PACKET 11/21/16 Potassium Chloride* (Potassium Chloride*) 8 Meq Capsule.er, 8 MEQ PO every other day, CAP 11/21/16 Docusate Sodium* (Colace*) 250 Mg Capsule, 250 MG PO DAILY, #30 CAP 11/21/16 Ferrous Sulfate* (Ferrous Sulfate*) 325 Mg Tabec, 325 MG PO BID, TAB 11/09/16 Levothyroxine Sodium* (Levothyroxine Sodium*) 75 Mcg Tablet, 75 MCG PO BEFORE BREAKFAST, #30 TAB 09/14/16 Sotalol Hcl* (Sotalol Hcl*) 80 Mg Tablet, 80 MG PO BID, TAB 09/14/16 Sitagliptin Phos/Metformin HCl (Janumet 50-500 mg Tablet) 1 Each Tablet, 1 EACH PO DAILY AM, TAB 09/14/16 Warfarin Sodium* (Coumadin*) 3 Mg Tablet, 3 MG PO DAILY, TAB 09/14/16 Medications Current Medications IV Flush (NS 3 ml) 3 ml PER PROTOCOL IV ; Start 02/01/19 at 05:00 Ondansetron HCl (Zofran Inj) 4 mg Q6H PRN IV NAUSEA/VOMITING; Start 02/01/19 at 05:00 Nitroglycerin (Nitroglycerin (Sl Tab) 0.4 Mg) 1 tab Q5M PRN SL .CHEST PAIN; Start 02/01/19 at 05:00 Acetaminophen (Tylenol Tab) 650 mg Q6H PRN PO .PAIN 1-3 OR TEMP; Start 02/01/19 at 05:00 Heparin Sodium (Porcine) (Heparin (5000 Units/1ml)) 5,000 unit Q12 SC Last administered on 02/02/19at 08:55; Admin Dose 5,000 UNIT; Start 02/01/19 at 09:00 Albuterol/ Ipratropium (Duoneb) 3 ml Q2H RESP THERAPY PRN HHN SHORTNESS OF BREATH Last administered on 02/02/19at 04:30; Admin Dose 3 ML; Start 02/01/19 at 05:00 Diagnostic Test (Pha) (Accu-Chek) 1 ea 02 XX ; Start 02/02/19 at 02:00 Insulin Glargine (Lantus) 10 units DAILY@2000 SC Last administered on 02/01/19at 22:52; Admin Dose 10 UNITS; Start 02/01/19 at 20:00 Insulin Aspart (Novolog Insulin Pen) NOVOLOG *MILD* ALGORITHM WITH MEALS BEDTIME SC Last administered on 02/01/19at 16:57; Admin Dose 2 UNIT; Start 02/01/19 at 08:00 Ferrous Sulfate (Ferrous Sulfate (Ec)) 325 mg BID PO Last administered on 02/02/19at 09:49; Admin Dose 325 MG; Start 02/01/19 at 09:00 Hydrocodone Bit/ Homatropine Methylb (Hycodan Liquid) 5 ml DAILY PRN PO COUGH; Start 02/01/19 at 05:00 Levothyroxine Sodium (Synthroid) 75 mcg BEFORE BREAKFAST PO Last administered on 02/01/19 09:07; Admin Dose 75 MCG; Start 02/01/19 at 07:00 Lubiprostone (Amitiza) 24 mcg WITH BREAKFAST DINNE PO Last administered on 02/01/19at 17:43; Admin Dose 24 MCG; Start 02/01/19 at 08:00 Meclizine HCl (Antivert) 25 mg TID PO Last administered on 02/02/19 09:49; Admin Dose 25 MG; Start 02/01/19 at 09:00 Polyethylene Glycol (Miralax) 17 gm DAILY PO Last administered on 02/02/19 09:48; Admin Dose 17 GM; Start 02/01/19 at 09:00 Sotalol HCl (Betapace) 40 mg BID PO Last administered on 02/02/19 09:50; Admin Dose 40 MG; Start 02/01/19 at 09:00 Pantoprazole (Protonix Tab) 40 mg DAILY@06 PO Last administered on 02/01/19 07:17; Admin Dose 40 MG; Start 02/01/19 at 06:00 Miscellaneous Information 1 ea NOTE XX ; Start 02/01/19 at 05:30 Glucose (Glutose) 15 gm Q15M PRN PO DECREASED GLUCOSE; Start 02/01/19 at 05:30 Glucose (Glutose) 22.5 gm Q15M PRN PO DECREASED GLUCOSE; Start 02/01/19 at 05:30 Dextrose (D50w Syringe) 25 ml Q15M PRN IV DECREASED GLUCOSE; Start 02/01/19 at 05:30 Dextrose (D50w Syringe) 50 ml Q15M PRN IV DECREASED GLUCOSE; Start 02/01/19 at 05:30 Glucagon (Glucagen) 1 mg Q15M PRN IM DECREASED GLUCOSE; Start 02/01/19 at 05:30 Glucose (Glutose) 15 gm Q15M PRN BUCCAL DECREASED GLUCOSE; Start 02/01/19 at 05:30 Docusate Sodium (Colace Liquid Cup) 100 mg DAILY PO Last administered on 02/02/19 09:48; Admin Dose 100 MG; Start 02/01/19 at 13:30 Gentamicin Sulfate (Gentamicin 0.3% Oph Drop) 1 drop Q4 LEFT EYE Last administered on 02/02/19 09:45; Admin Dose 1 DROP; Start 02/01/19 at 17:00 Patient Own Medication 1 ea HS BOTH EYES Last administered on 02/01/19 22:30; Admin Dose 1 EA; Start 02/01/19 at 21:00 Patient Own Medication 1 ea BID BOTH EYES Last administered on 02/02/19 09:43; Admin Dose 1 EA; Start 02/01/19 at 21:00 Apixaban (Eliquis) 2.5 mg BID PO Last administered on 02/02/19 09:49; Admin Dose 2.5 MG; Start 02/01/19 at 21:00 Benzonatate (Tessalon) 100 mg TID PRN PO COUGH Last administered on 02/02/19 09:49; Admin Dose 100 MG; Start 02/02/19 at 02:30 Acetylcysteine (Mucomyst) 3 ml Q6H RESP THERAPY NEB Last administered on 02/02/19 10:15; Admin Dose 3 ML; Start 02/02/19 at 04:30; Stop 02/03/19 at 04:29 Piperacillin Sod/ Tazobactam Sod 100 ml @ 25 mls/hr Q8 IVPB Last administered on 02/02/19 09:52; Admin Dose 25 MLS/HR; Start 02/02/19 at 09:01 Vancomycin HCl (Vanco Iv Per Pharmacy) VANCOMYCIN PER PHARMACY PER PROTOCOL XX ; Start 02/02/19 at 06:30 Eye Lubricant (Refresh Plus) 1 drop Q4H PRN BOTH EYES .DRY EYES; Start 02/02/19 at 10:00 Vancomycin HCl 250 ml @ 125 mls/hr ONCE IVPB Last administered on 02/02/19at 0 8:48; Admin Dose 125 MLS/HR; Start 02/02/19 at 09:00; Stop 02/02/19 at 10:59 Assessment/Plan Hospital Course (Demo Recall) 1. Dyspnea: Multifactorial - better fluid status now, not in CHF by exam. OK to hydrate gently. 2. Congestive heart failure- chronic, con't Rx. 3. Paroxysmal atrial fibrillation: Currently in sinus rhythm - paced - on Eliquis. 4. Sinus syndrome with permanent pacemaker - pacer check was done in the office recently - good fxn. 5. Renal failure: Acute versus chronic - avoid nephrotoxic meds. 6 . History of hypertension - treated. 7. DM - on meds, keep euglycemic. CARLOS EDUARDO AVILES MD Feb 02, 2019 10:24
[2019-02-02] MEDS ORDERED: LEVOFLOXACIN 500 MG TAB PO SCH (10:30)
[2019-02-02] MEDS: ALLOPURINOL 100 MG TAB PO SCH (10:30)
[2019-02-02] MEDS: LINAGLIPTIN 5 MG TABLET PO SCH (10:30)
--- NOTE | 2019-02-02 10:32 | PN ---
Date/Time of Note Date/Time of Note DATE: 02/02/19 TIME: 10:31 Assessment/Plan VTE Prophylaxis Risk score (from Ns)>0 risk: 6 SCD applied (from Ns): Yes Pharmacological prophylaxis: apixaban Lines/Catheters IV [facility]ter [facility]from [facility] Peripheral IV Urinary Cath still in place: Yes Reason Cath still needed: other (indicate) Assessment/Plan Hospital Course SUBJECTIVE: No acute overnight episodes. Has been having difficulty with swallowing food. Has been coughing. No fevers. on supplemental oxygen via nasal cannula. OBJECTIVE: Vital signs-see below PHYSICAL EXAM: Constitutional: Frail looking, elderly female, not in acute distress. Psych: nl mood/affect, no complaints Head: atraumatic, normocephalic Eyes: nl conjunctiva, nl sclera ENMT: mucosa pink and moist, nl external ears & nose Neck: non-tender, supple Respiratory: +Cough.. Rhonchi + RUL, normal air movement Cardiovascular: +Rales/Rhonchi bilaterally. Dimished bases. nl pulses, regular rate and rhythm Gastrointestinal: non-tender, soft, bowel sounds active in all 4 quadrants. Musculoskeletal/extremities: nl extremities to inspection, motor strength equal bilaterally, no focal deficit. Normal pulses,no cyanosis, no edema. Neurological: Alert oriented 3,nl speech, nl strength Skin: nl turgor ASSESSMENT/PLAN:88-year-old female who was recently discharged from a retirement facility 2 weeks ago, with a history of CHF, A. fib, CKD, hypothyroidism, anemia, diabetes, was brought in for worsening cough, shortness of breath, weakness for a few day duration... 1. Acute hypoxemic respiratory failure, multifactorial with aspiration pneumonia, heart failure. -Bronchodilators, supplemental oxygen to keep saturation above 92%, antibiotics for pneumonia management. -Mccord eval -f/u pulmonary recommendations. 2. Aspiration pneumonia. -Chest x-ray noted -cont.zosyn+vanco -Aspiration precaution -HOB >40 degree.. 3.Acute on chronic diastolic congestive heart failure. -Cardiology managing. Continue diuresis dose by renal, beta blockers. -Monitor I's and O's. 4. Paroxysmal atrial fibrillation. -Currently in normal sinus rhythm. -Continue atc eliquis, Betapace for rate control 5. Acute kidney injury on CKD -Management per nephrology. -With improved renal function. -Renally dose medications. 6. Asymptomatic hyperuricemia secondary to CKD -Clinically stable, however secondary to marked elevation, will start patient on low-dose allopurinol. 7. DMII -A1c noted, stable glycemic trends. -Continue Accu-Cheks/ISS/Lantus. -We will also start Tradjenta. 8. Anemia of CKD. -HH stable. 9. Hypothyroidism -On Synthroid 10. Debility. -Patient was recently discharged from a retirement facility about 2 weeks ago. -Continue supportive care. DVT prophylaxis: Eliquis PUD prophylaxis: Pepcid CODE STATUS: Full code Diet: N.p.o. until cleared from speech therapist. Disposition: Overall, patient with stabilizing volume status. However, she continued to require supplemental oxygen, she is also at risk for aspiration at. Patient would benefit from a Mccord evaluation for respiratory care. Continue speech therapy evaluation. Patient was seen in collaboration with Dr. Goldsmith Result Diagram: 02/02/19 0523 02/02/19 0523 Results 24hrs Laboratory Tests Test 02/01/19 11:55 02/01/19 14:00 02/01/19 16:50 02/01/19 22:32 Bedside Glucose 213 181 161 Urine Eosinophils % 0.0 Urine Random Creatinine 66.83 Urine Random Sodium < 13 L Urine Protein/Creatinine 0.31 Ratio Urine Total Protein 21.0 H Test 02/02/19 05:23 02/02/19 07:52 White Blood Count 13.0 H Red Blood Count 3.39 L Hemoglobin 10.9 L Hematocrit 32.6 L Mean Corpuscular Volume 96.2 Mean Corpuscular 32.2 Hemoglobin Mean Corpuscular 33.4 Hemoglobin Concent Red Cell Distribution 13.4 Width Platelet Count 277 Mean Platelet Volume 11.0 H Immature Granulocytes % 1.000 H Neutrophils % Lymphocytes % Monocytes % Eosinophils % Basophils % Nucleated Red Blood 0.0 Cells % Immature Granulocytes # 0.130 H Neutrophils # Lymphocytes # Monocytes # Eosinophils # Basophils # Nucleated Red Blood Cells # Prothrombin Time 21.5 H Prothrombin Time Ratio 1.7 INR International 1.86 Normalized Ratio Sodium Level 141 Potassium Level 4.1 Chloride Level 98 Carbon Dioxide Level 33 H Anion Gap 10 Blood Urea Nitrogen 49 #H Creatinine 1.54 H Est Glomerular Filtrat Rate mL/min Glucose Level 167 Hemoglobin A1c 7.0 H Uric Acid 9.9 H Calcium Level 9.3 Magnesium Level 1.8 Total Bilirubin 0.4 Direct Bilirubin 0.00 Indirect Bilirubin 0.4 Aspartate Amino 30 Transf (AST/SGOT) Alanine 21 Aminotransferase (ALT/SG PT) Alkaline Phosphatase 126 H Creatine Kinase < 20 L B-Type Natriuretic 8970 H Peptide Total Protein 7.1 Albumin 3.4 Globulin 3.70 H Albumin/Globulin Ratio 0.91 Triglycerides Level 125 Cholesterol Level 126 LDL Cholesterol, 71 Calculated HDL Cholesterol 30 L Cholesterol/HDL Ratio 4.2 Bedside Glucose 164 Exam/Review of Systems Exam Vitals Vital Signs Date Temp Pulse Resp B/P (MAP) Pulse Ox O2 O2 Flow FiO2 Time Delivery Rate 02/02/19 61 08:01 02/02/19 98.5 20 114/59 98 07:22 (77) 02/02/19 3.0 30 04:35 02/02/19 Nasal 04:30 Cannula Intake and Output 02/01/19 02/01/19 02/02/19 1515:00 23:00 07:00 IntakeIntake Total 650 ml 200 ml OutputOutput Total 450 ml 600 ml BalanceBalance 200 ml -400 ml Results Results 24hrs Laboratory Tests Test 02/01/19 11:55 02/01/19 14:00 02/01/19 16:50 02/01/19 22:32 Bedside Glucose 213 181 161 Urine Eosinophils % 0.0 Urine Random Creatinine 66.83 Urine Random Sodium < 13 L Urine Protein/Creatinine 0.31 Ratio Urine Total Protein 21.0 H Test 02/02/19 05:23 02/02/19 07:52 White Blood Count 13.0 H Red Blood Count 3.39 L Hemoglobin 10.9 L Hematocrit 32.6 L Mean Corpuscular Volume 96.2 Mean Corpuscular 32.2 Hemoglobin Mean Corpuscular 33.4 Hemoglobin Concent Red Cell Distribution 13.4 Width Platelet Count 277 Mean Platelet Volume 11.0 H Immature Granulocytes % 1.000 H Neutrophils % Lymphocytes % Monocytes % Eosinophils % Basophils % Nucleated Red Blood 0.0 Cells % Immature Granulocytes # 0.130 H Neutrophils # Lymphocytes # Monocytes # Eosinophils # Basophils # Nucleated Red Blood Cells # Prothrombin Time 21.5 H Prothrombin Time Ratio 1.7 INR International 1.86 Normalized Ratio Sodium Level 141 Potassium Level 4.1 Chloride Level 98 Carbon Dioxide Level 33 H Anion Gap 10 Blood Urea Nitrogen 49 #H Creatinine 1.54 H Est Glomerular Filtrat Rate mL/min Glucose Level 167 Hemoglobin A1c 7.0 H Uric Acid 9.9 H Calcium Level 9.3 Magnesium Level 1.8 Total Bilirubin 0.4 Direct Bilirubin 0.00 Indirect Bilirubin 0.4 Aspartate Amino 30 Transf (AST/SGOT) Alanine 21 Aminotransferase (ALT/SG PT) Alkaline Phosphatase 126 H Creatine Kinase < 20 L B-Type Natriuretic 8970 H Peptide Total Protein 7.1 Albumin 3.4 Globulin 3.70 H Albumin/Globulin Ratio 0.91 Triglycerides Level 125 Cholesterol Level 126 LDL Cholesterol, 71 Calculated HDL Cholesterol 30 L Cholesterol/HDL Ratio 4.2 Bedside Glucose 164 Medications Medication Current Medications IV Flush (NS 3 ml) 3 ml PER PROTOCOL IV ; Start 02/01/19 at 05:00 Ondansetron HCl (Zofran Inj) 4 mg Q6H PRN IV NAUSEA/VOMITING; Start 02/01/19 at 05:00 Nitroglycerin (Nitroglycerin (Sl Tab) 0.4 Mg) 1 tab Q5M PRN SL .CHEST PAIN; Start 02/01/19 at 05:00 Acetaminophen (Tylenol Tab) 650 mg Q6H PRN PO .PAIN 1-3 OR TEMP; Start 02/01/19 at 05:00 Heparin Sodium (Porcine) (Heparin (5000 Units/1ml)) 5,000 unit Q12 SC Last administered on 02/02/19at 08:55; Admin Dose 5,000 UNIT; Start 02/01/19 at 09:00 Albuterol/ Ipratropium (Duoneb) 3 ml Q2H RESP THERAPY PRN HHN SHORTNESS OF BREATH Last administered on 02/02/19at 04:30; Admin Dose 3 ML; Start 02/01/19 at 05:00 Diagnostic Test (Pha) (Accu-Chek) 1 ea 02 XX ; Start 02/02/19 at 02:00 Insulin Glargine (Lantus) 10 units DAILY@2000 SC Last administered on 02/01/19at 22:52; Admin Dose 10 UNITS; Start 02/01/19 at 20:00 Insulin Aspart (Novolog Insulin Pen) NOVOLOG *MILD* ALGORITHM WITH MEALS BEDTIME SC Last administered on 02/01/19at 16:57; Admin Dose 2 UNIT; Start 02/01/19 at 08:00 Ferrous Sulfate (Ferrous Sulfate (Ec)) 325 mg BID PO Last administered on 02/01/19 22:28; Admin Dose 325 MG; Start 02/01/19 at 09:00 Hydrocodone Bit/ Homatropine Methylb (Hycodan Liquid) 5 ml DAILY PRN PO COUGH; Start 02/01/19 at 05:00 Levothyroxine Sodium (Synthroid) 75 mcg BEFORE BREAKFAST PO Last administered on 02/01/19 09:07; Admin Dose 75 MCG; Start 02/01/19 at 07:00 Lubiprostone (Amitiza) 24 mcg WITH BREAKFAST DINNE PO Last administered on 02/01/19 17:43; Admin Dose 24 MCG; Start 02/01/19 at 08:00 Meclizine HCl (Antivert) 25 mg TID PO Last administered on 02/01/19 22:28; Admin Dose 25 MG; Start 02/01/19 at 09:00 Polyethylene Glycol (Miralax) 17 gm DAILY PO Last administered on 02/01/19 09:07; Admin Dose 17 GM; Start 02/01/19 at 09:00 Sotalol HCl (Betapace) 40 mg BID PO Last administered on 02/01/19 22:29; Admin Dose 40 MG; Start 02/01/19 at 09:00 Pantoprazole (Protonix Tab) 40 mg DAILY@06 PO Last administered on 02/01/19 07:17; Admin Dose 40 MG; Start 02/01/19 at 06:00 Miscellaneous Information 1 ea NOTE XX ; Start 02/01/19 at 05:30 Glucose (Glutose) 15 gm Q15M PRN PO DECREASED GLUCOSE; Start 02/01/19 at 05:30 Glucose (Glutose) 22.5 gm Q15M PRN PO DECREASED GLUCOSE; Start 02/01/19 at 05:30 Dextrose (D50w Syringe) 25 ml Q15M PRN IV DECREASED GLUCOSE; Start 02/01/19 at 05:30 Dextrose (D50w Syringe) 50 ml Q15M PRN IV DECREASED GLUCOSE; Start 02/01/19 at 05:30 Glucagon (Glucagen) 1 mg Q15M PRN IM DECREASED GLUCOSE; Start 02/01/19 at 05:30 Glucose (Glutose) 15 gm Q15M PRN BUCCAL DECREASED GLUCOSE; Start 02/01/19 at 05:30 Docusate Sodium (Colace Liquid Cup) 100 mg DAILY PO Last administered on 02/01/19 14:31; Admin Dose 100 MG; Start 02/01/19 at 13:30 Gentamicin Sulfate (Gentamicin 0.3% Oph Drop) 1 drop Q4 LEFT EYE Last administered on 02/02/19 05:34; Admin Dose 1 DROP; Start 02/01/19 at 17:00 Patient Own Medication 1 ea HS BOTH EYES Last administered on 02/01/19 22:30; Admin Dose 1 EA; Start 02/01/19 at 21:00 Patient Own Medication 1 ea BID BOTH EYES Last administered on 02/01/19 22:30; Admin Dose 1 EA; Start 02/01/19 at 21:00 Apixaban (Eliquis) 2.5 mg BID PO Last administered on 02/01/19 22:28; Admin Dose 2.5 MG; Start 02/01/19 at 21:00 Benzonatate (Tessalon) 100 mg TID PRN PO COUGH Last administered on 02/02/19 03:35; Admin Dose 100 MG; Start 02/02/19 at 02:30 Acetylcysteine (Mucomyst) 3 ml Q6H RESP THERAPY NEB Last administered on 02/02/19 04:41; Admin Dose 3 ML; Start 02/02/19 at 04:30; Stop 02/03/19 at 04:29 Furosemide (Lasix) 20 mg DAILY IV Last administered on 02/02/19 08:50; Admin Dose 20 MG; Start 02/02/19 at 09:00 Piperacillin Sod/ Tazobactam Sod 100 ml @ 25 mls/hr Q8 IVPB ; Start 02/02/19 at 09:01 Vancomycin HCl (Vanco Iv Per Pharmacy) VANCOMYCIN PER PHARMACY PER PROTOCOL XX ; Start 02/02/19 at 06:30 Eye Lubricant (Refresh Plus) 1 drop Q4H PRN BOTH EYES .DRY EYES; Start 02/02/19 at 10:00 Vancomycin HCl 250 ml @ 125 mls/hr ONCE IVPB Last administered on 02/02/19 08:48; Admin Dose 125 MLS/HR; Start 02/02/19 at 09:00; Stop 02/02/19 at 10:59 ANDREA KHAN NP Feb 02, 2019 10:32
[2019-02-02] MEDS: GENTAMICIN 0.3% 5 ML OPH RIGHT EYE SCH ×3 (12:41→22:21)
[2019-02-02] MEDS: ALBUTEROL/IPRATROPIUM (NEB) 3 ML AMP HHN SCH ×3 (13:00→20:17)
[2019-02-02] MEDS ORDERED: metroNIDAZOLE 500 MG TAB PO SCH (14:00)
--- NOTE | 2019-02-02 18:37 | CONS ---
Assessment/Plan Assessment/Plan Assessment/Plan (Daily) 1. acute kidney injury on CKD due to hemodyanmics from CHF 2. acute CHF, acute on chronic diastolic CHF, ECHO showed EF 60% with stage II diastoilc dysfunction 3. H/o HTN 4. H/o HL 5. Anemia of CKD 6. H/o history of CHF, atrial fibrillation, diabetes, hypothyroidism, CKD, GI bleed, pacemaker, Plan: doing better, continue lasix 20mg pO BID, BUN/Cr 49/1.54- S/p cardiology consult, pt had a full CKD work up on previosu admisison acute rehab consult has been requested will have her primary nephrolgist /Carlos to see pt in AM will follow up Consultation Date/Type/Reason Admit Date/Time Feb 02, 2019 at 10:08 Initial Consult Date 02/02/19 Type of Consult NEPHROLOGY Requesting Provider: ANDREA KHAN NP Date/Time of Note DATE: 02/02/19 TIME: 18:36 Exam/Review of Systems Exam Vitals Vital Signs Date Temp Pulse Resp B/P (MAP) Pulse Ox O2 O2 Flow FiO2 Time Delivery Rate 02/02/19 2.0 17:31 02/02/19 61 16:01 02/02/19 98.4 20 103/53 97 15:39 (70) 02/02/19 Nasal 15:30 Cannula 02/02/19 30 04:35 Intake and Output 02/01/19 02/01/19 02/02/19 1515:00 23:00 07:00 IntakeIntake Total 650 ml 200 ml OutputOutput Total 450 ml 600 ml BalanceBalance 200 ml -400 ml Results Result Diagram: 02/02/19 0523 02/02/19 0523 Results 24hrs Laboratory Tests Test 02/01/19 22:32 02/02/19 05:23 02/02/19 07:52 02/02/19 10:17 Bedside Glucose 161 164 White Blood Count 13.0 H Red Blood Count 3.39 L Hemoglobin 10.9 L Hematocrit 32.6 L Mean Corpuscular 96.2 Volume Mean Corpuscular 32.2 Hemoglobin Mean Corpuscular 33.4 Hemoglobin Concent Red Cell 13.4 Distribution Width Platelet Count 277 Mean Platelet 11.0 H Volume Immature 1.000 H Granulocytes % Neutrophils % Segmented 68 Neutrophils % (Manual) Band Neutrophils % 16 H (Manual) Lymphocytes % Lymphocytes % 4 L (Manual) Reactive 1 H Lymphocytes % (Manual) Monocytes % Monocytes % 10 (Manual) Eosinophils % Basophils % Promyelocytes % 1 H (Manual) Nucleated Red 0.0 Blood Cells % Immature 0.130 H Granulocytes # Neutrophils # Neutrophils # 9.1 H (Manual) Band Neutrophils # 2.0 H Lymphocytes 0.5 L (Manual) Lymphocytes # Reactive 0.1 H Lymphocytes # Monocytes # Monocytes # 1.3 H (Manual) Eosinophils # Basophils # Promyelocytes # 0.1 H Nucleated Red Blood Cells # Platelet Estimate NORMAL Giant Platelets 2 H Anisocytosis 1+ Macrocytosis 1+ Ovalocytes 1+ Prothrombin Time 21.5 H Prothrombin Time 1.7 Ratio INR International 1.86 Normalized Ratio Sodium Level 141 Potassium Level 4.1 Chloride Level 98 Carbon Dioxide 33 H Level Anion Gap 10 Blood Urea 49 #H Nitrogen Creatinine 1.54 H Est Glomerular Filtrat Rate mL/min Glucose Level 167 Hemoglobin A1c 7.0 H Uric Acid 9.9 H Calcium Level 9.3 Magnesium Level 1.8 Total Bilirubin 0.4 Direct Bilirubin 0.00 Indirect Bilirubin 0.4 Aspartate Amino 30 Transf (AST/SGOT) Alanine 21 Aminotransferase ( ALT/SGPT) Alkaline 126 H Phosphatase Creatine Kinase < 20 L B-Type Natriuretic 8970 H Peptide Total Protein 7.1 Albumin 3.4 Globulin 3.70 H Albumin/Globulin 0.91 Ratio Triglycerides 125 Level Cholesterol Level 126 LDL Cholesterol, 71 Calculated HDL Cholesterol 30 L Cholesterol/HDL 4.2 Ratio Blood Gas Specimen Blood arterial Source Arterial Blood 02/02/2019 10:47:22 Date Drawn AM Arterial Blood pH 7.470 H (Temp corrected) Arterial Blood 43.3 pCO2 (Temp correct) Arterial Blood pO2 147.4 H (Temp corrected) Arterial Blood 30.8 H HCO3 Arterial Blood 6.5 H Base Excess Arterial Blood 98.6 Oxygen Saturation [place] Test N/A Arterial Blood Gas Right Brachial Puncture Site Arterial 0.3 Blood Carboxyhemog lobin Arterial Blood 0.3 Methemoglobin Blood Gas A-a O2 15.6 Differential Oxyhemoglobin 98.0 Percent Blood Gas 37.0 Temperature Blood Gas Modality NASAL CANNULA FiO2 30.0 Blood Gas Notified TM Whom Blood Gas Notified 02/02/2019 11:00:00 Time AM Test 02/02/19 11:04 02/02/19 12:39 02/02/19 17:10 Vitamin B12 Level 915 Vitamin D 22.7 L 1,25-Dihydroxy Bedside Glucose 148 145 Medications Medication Current Medications IV Flush (NS 3 ml) 3 ml PER PROTOCOL IV ; Start 02/01/19 at 05:00 Ondansetron HCl (Zofran Inj) 4 mg Q6H PRN IV NAUSEA/VOMITING; Start 02/01/19 at 05:00 Nitroglycerin (Nitroglycerin (Sl Tab) 0.4 Mg) 1 tab Q5M PRN SL .CHEST PAIN; Start 02/01/19 at 05:00 Acetaminophen (Tylenol Tab) 650 mg Q6H PRN PO .PAIN 1-3 OR TEMP; Start 02/01/19 at 05:00 Albuterol/ Ipratropium (Duoneb) 3 ml Q2H RESP THERAPY PRN HHN SHORTNESS OF BREATH Last administered on 02/02/19 04:30; Admin Dose 3 ML; Start 02/01/19 at 05:00 Diagnostic Test (Pha) (Accu-Chek) 1 ea 02 XX ; Start 02/02/19 at 02:00 Insulin Glargine (Lantus) 10 units DAILY@2000 SC Last administered on 02/01/19 22:52; Admin Dose 10 UNITS; Start 02/01/19 at 20:00 Ferrous Sulfate (Ferrous Sulfate (Ec)) 325 mg BID PO Last administered on 02/02/19 09:49; Admin Dose 325 MG; Start 02/01/19 at 09:00 Hydrocodone Bit/ Homatropine Methylb (Hycodan Liquid) 5 ml DAILY PRN PO COUGH; Start 02/01/19 at 05:00 Levothyroxine Sodium (Synthroid) 75 mcg BEFORE BREAKFAST PO Last administered on 02/01/19 09:07; Admin Dose 75 MCG; Start 02/01/19 at 07:00 Lubiprostone (Amitiza) 24 mcg WITH BREAKFAST DINNE PO Last administered on 02/01/19 17:43; Admin Dose 24 MCG; Start 02/01/19 at 08:00 Meclizine HCl (Antivert) 25 mg TID PO Last administered on 02/02/19 09:49; Admin Dose 25 MG; Start 02/01/19 at 09:00 Polyethylene Glycol (Miralax) 17 gm DAILY PO Last administered on 02/02/19 09 :48; Admin Dose 17 GM; Start 02/01/19 at 09:00 Sotalol HCl (Betapace) 40 mg BID PO Last administered on 02/02/19 09:50; Admin Dose 40 MG; Start 02/01/19 at 09:00 Pantoprazole (Protonix Tab) 40 mg DAILY@06 PO Last administered on 02/01/19 07:17; Admin Dose 40 MG; Start 02/01/19 at 06:00 Miscellaneous Information 1 ea NOTE XX ; Start 02/01/19 at 05:30 Glucose (Glutose) 15 gm Q15M PRN PO DECREASED GLUCOSE; Start 02/01/19 at 05:30 Glucose (Glutose) 22.5 gm Q15M PRN PO DECREASED GLUCOSE; Start 02/01/19 at 05:30 Dextrose (D50w Syringe) 25 ml Q15M PRN IV DECREASED GLUCOSE; Start 02/01/19 at 05:30 Dextrose (D50w Syringe) 50 ml Q15M PRN IV DECREASED GLUCOSE; Start 02/01/19 at 05:30 Glucagon (Glucagen) 1 mg Q15M PRN IM DECREASED GLUCOSE; Start 02/01/19 at 05:30 Glucose (Glutose) 15 gm Q15M PRN BUCCAL DECREASED GLUCOSE; Start 02/01/19 at 05:30 Docusate Sodium (Colace Liquid Cup) 100 mg DAILY PO Last administered on 02/02/19 09:48; Admin Dose 100 MG; Start 02/01/19 at 13:30 Patient Own Medication 1 ea HS BOTH EYES Last administered on 02/01/19 22:30; Admin Dose 1 EA; Start 02/01/19 at 21:00 Patient Own Medication 1 ea BID BOTH EYES Last administered on 02/02/19 09:43; Admin Dose 1 EA; Start 02/01/19 at 21:00 Apixaban (Eliquis) 2.5 mg BID PO Last administered on 02/02/19 09:49; Admin Dose 2.5 MG; Start 02/01/19 at 21:00 Benzonatate (Tessalon) 100 mg TID PRN PO COUGH Last administered on 02/02/19 09:49; Admin Dose 100 MG; Start 02/02/19 at 02:30 Acetylcysteine (Mucomyst) 3 ml Q6H RESP THERAPY NEB Last administered on 02/02/19at 10:15; Admin Dose 3 ML; Start 02/02/19 at 04:30; Stop 02/03/19 at 04:29 Piperacillin Sod/ Tazobactam Sod 100 ml @ 25 mls/hr Q8 IVPB Last administered on 02/02/19at 09:52; Admin Dose 25 MLS/HR; Start 02/02/19 at 09:01 Vancomycin HCl (Vanco Iv Per Pharmacy) VANCOMYCIN PER PHARMACY PER PROTOCOL XX ; Start 02/02/19 at 06:30 Eye Lubricant (Refresh Plus) 1 drop Q4H PRN BOTH EYES .DRY EYES; Start 02/02/19 at 10:00 Insulin Aspart (Novolog Insulin Pen) NOVOLOG *MILD* ALGORITHM Q4 SC ; Start 02/02/19 at 13:00 Allopurinol (Zyloprim) 100 mg DAILY PO ; Start 02/02/19 at 10:30 Linagliptin (Tradjenta) 5 mg DAILY PO ; Start 02/02/19 at 10:30 Gentamicin Sulfate (Gentamicin 0.3% Oph Drop) 1 drop Q4 RIGHT EYE Last administered on 02/02/19at 17:28; Admin Dose 1 DROP; Start 02/02/19 at 13:00 Albuterol/ Ipratropium (Duoneb) 3 ml Q4H RESP THERAPY HHN Last administered on 02/02/19at 13:00; Admin Dose 3 ML; Start 02/02/19 at 13:00 Vancomycin/Sodium Chloride 250 ml @ 125 mls/hr Q48H IVPB ; Start 02/04/19 at 09:00 KEVIN ZHOU MD Feb 02, 2019 18:37
[2019-02-02] MEDS ORDERED: DEXTROSE 5%-0.45% NACL 1,000 ML IV SCH (22:00)
[2019-02-02] MEDS: INSULIN GLARGINE [LANTus] (100 UNITS/ML) SYG SC SCH (22:03)
[2019-02-03] VITALS (12 sets, daily range): BP systolic 103–121; BP diastolic 52–57; PULSE 60–76; RESP 19–20
[2019-02-03] MEDS: ACETYLCYSTEINE 20% 4 ML VIAL NEB SCH (01:25)
[2019-02-03] MEDS: ALBUTEROL/IPRATROPIUM (NEB) 3 ML AMP HHN SCH ×6 (01:25→20:21)
[2019-02-03] MEDS: GENTAMICIN 0.3% 5 ML OPH RIGHT EYE SCH ×6 (01:42→21:19)
[2019-02-03] MEDS: ACCU-CHEK XX SCH (02:00)
[2019-02-03] MEDS: INSULIN ASPART [NOVOLOG] 3 ML PEN SC SCH ×5 (02:24→21:47)
[2019-02-03] MEDS: PANTOPRAZOLE (EC) 40 MG TAB PO SCH (06:00)
[2019-02-03] MEDS: PIPER-TAZO 3.375 GM IV (PMX) 100 ML IVPB SCH ×3 (06:25→21:20)
[2019-02-03] MEDS: LEVOTHYROXINE 75 MCG TAB PO SCH (06:45)
[2019-02-03] MEDS: LUBIPROSTONE 24 MCG CAP PO SCH ×2 (08:00→18:59)
[2019-02-03] MEDS: PATIENT'S OWN MEDICATION BOTH EYES SCH ×3 (09:00→21:20)
--- NOTE | 2019-02-03 10:20 | PN ---
Date/Time of Note Date/Time of Note DATE: 02/03/19 TIME: 10:08 Assessment/Plan VTE Prophylaxis Risk score (from Ns)>0 risk: 6 SCD applied (from Ns): Yes Pharmacological prophylaxis: apixaban Lines/Catheters IV Catheter Type (from [facility] Peripheral IV Urinary Cath still in place: Yes Reason Cath still needed: other (indicate) Assessment/Plan Hospital Course SUBJECTIVE: Patient continued to have cough. She did better with speech therapy evaluation today and has been cleared for a pured diet. No fevers or chills. On 4 L oxygen via nasal cannula. OBJECTIVE: Vital signs-see below PHYSICAL EXAM: Constitutional: Frail looking, elderly female, not in acute distress. Psych: nl mood/affect, no complaints Head: atraumatic, normocephalic Eyes: nl conjunctiva, nl sclera ENMT: mucosa pink and moist, nl external ears & nose Neck: non-tender, supple Respiratory: +Cough.. Rhonchi + RUL, normal air movement Cardiovascular: +Rhonchi bilaterally. Diminished bases. nl pulses, regular rate and rhythm Gastrointestinal: non-tender, soft, bowel sounds active in all 4 quadrants. Musculoskeletal/extremities: nl extremities to inspection, motor strength equal bilaterally, no focal deficit. Normal pulses,no cyanosis, no edema. Neurological: Alert oriented 3,nl speech, nl strength Skin: nl turgor ASSESSMENT/PLAN:88-year-old female who was recently discharged from a correction facility 2 weeks ago, with a history of CHF, A. fib, CKD, hypothyroi dism, anemia, diabetes, was brought in for worsening cough, shortness of breath, weakness for a few day duration... 1. Acute on chronic oxygen dependent hypoxemic respiratory failure, multifactorial with aspiration pneumonia, heart failure. -Gradually improving. -Bronchodilators, supplemental oxygen to keep saturation above 92%, antibiotics for pneumonia management. -Mccord eval -f/u pulmonary recommendations. 2. Aspiration pneumonia. -Continue pulmonary toileting -cont.zosyn. DC vancomycin in light of worsened creatinine. Will start p.o. Flagyl for more anaerobic coverage. -Aspiration precaution -HOB >40 degree.. 3.Acute on chronic diastolic congestive heart failure. -Cardiology managing. Continue diuresis dose by renal, beta blockers. -Monitor I's and O's. 4. Paroxysmal atrial fibrillation. -Currently in normal sinus rhythm. -Continue atc eliquis, Betapace for rate control 5. Acute kidney injury on CKD -Renal fxn worsened..likely vanco toxicity..Pierce mercado , obtain mrsa screening.. -Management per nephrology. -Renally dose medications. 6. 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 7. DMII -stable glycemic trends. -Continue Tradjenta, Accu-Cheks/ISS/Lantus. 8. Anemia of CKD. -HH stable. 9. Hypothyroidism -On Synthroid 10. Debility. -pt tx -rehab consult/irving eval DVT prophylaxis: Eliquis PUD prophylaxis: Pepcid CODE STATUS: Full code Diet: pureed Disposition: Overall, patient with gradual improvement in her respiratory status. Continue titrating oxygen. Patient also does use home oxygen. May DC Chelsey if no further urine studies are required from nephrology standpoint. She would benefit from [place] respiratory care follow-up. Continue physical therapy. I also had a lengthy discussion with patient's son at bedside and discussed goals of care and address CODE STATUS which they will get back to me. Patient was seen in collaboration with Dr. Goldsmith Result Diagram: 02/03/19 0551 02/03/19 0551 Results 24hrs Laboratory Tests Test 02/02/19 10:17 02/02/19 11:04 02/02/19 12:39 02/02/19 17:10 Blood Gas Specimen Blood arterial Source Arterial Blood 02/02/2019 10:47:22 Date Drawn AM Arterial Blood pH 7.470 H (Temp corrected) Arterial Blood 43.3 pCO2 (Temp correct) Arterial Blood pO2 147.4 H (Temp corrected) Arterial Blood 30.8 H HCO3 Arterial Blood 6.5 H Base Excess Arterial Blood 98.6 Oxygen Saturation [place] Test N/A Arterial Blood Gas Right Brachial Puncture Site Arterial 0.3 Blood Carboxyhemog lobin Arterial Blood 0.3 Methemoglobin Blood Gas A-a O2 15.6 Differential Oxyhemoglobin 98.0 Percent Blood Gas 37.0 Temperature Blood Gas Modality NASAL CANNULA FiO2 30.0 Blood Gas Notified TM Whom Blood Gas Notified 02/02/2019 11:00:00 Time AM Vitamin B12 Level 915 Vitamin D 22.7 L 1,25-Dihydroxy Bedside Glucose 148 145 Test 02/02/19 21:37 02/03/19 01:38 02/03/19 05:51 02/03/19 06:24 Bedside Glucose 139 150 177 White Blood Count 9.5 # Red Blood Count 3.51 L Hemoglobin 10.9 L Hematocrit 33.9 L Mean Corpuscular 96.6 Volume Mean Corpuscular 31.1 Hemoglobin Mean Corpuscular 32.2 Hemoglobin Concent Red Cell 13.6 Distribution Width Platelet Count 275 Mean Platelet 11.1 H Volume Immature 0.800 H Granulocytes % Neutrophils % 82.0 H Lymphocytes % 10.7 L Monocytes % 6.1 Eosinophils % 0.2 Basophils % 0.2 Nucleated Red 0.0 Blood Cells % Immature 0.080 H Granulocytes # Neutrophils # 7.8 H Lymphocytes # 1.0 Monocytes # 0.6 Eosinophils # 0.0 Basophils # 0.0 Nucleated Red 0.0 Blood Cells # Sodium Level 146 H Potassium Level 3.4 L Chloride Level 105 Carbon Dioxide 29 Level Anion Gap 12 Blood Urea 55 H Nitrogen Creatinine 1.70 H Est Glomerular Filtrat Rate mL/min Glucose Level 132 Calcium Level 8.8 Exam/Review of Systems Exam Vitals Vital Signs Date Temp Pulse Resp B/P (MAP) Pulse Ox O2 O2 Flow FiO2 Time Delivery Rate 02/03/19 97.6 60 19 109/53 97 08:28 (71) 02/03/19 2.0 08:05 02/03/19 Nasal 08:05 Cannula 02/02/19 30 04:35 Intake and Output 02/02/19 02/02/19 02/03/19 1515:00 23:00 07:00 IntakeIntake Total 100 ml 450 ml OutputOutput Total 450 ml 550 ml BalanceBalance -350 ml -100 ml Results Results 24hrs Laboratory Tests Test 02/02/19 10:17 02/02/19 11:04 02/02/19 12:39 02/02/19 17:10 Blood Gas Specimen Blood arterial Source Arterial Blood 02/02/2019 10:47:22 Date Drawn AM Arterial Blood pH 7.470 H (Temp corrected) Arterial Blood 43.3 pCO2 (Temp correct) Arterial Blood pO2 147.4 H (Temp corrected) Arterial Blood 30.8 H HCO3 Arterial Blood 6.5 H Base Excess Arterial Blood 98.6 Oxygen Saturation [place] Test N/A Arterial Blood Gas Right Brachial Puncture Site Arterial 0.3 Blood Carboxyhemog lobin Arterial Blood 0.3 Methemoglobin Blood Gas A-a O2 15.6 Differential Oxyhemoglobin 98.0 Percent Blood Gas 37.0 Temperature Blood Gas Modality NASAL CANNULA FiO2 30.0 Blood Gas Notified TM Whom Blood Gas Notified 02/02/2019 11:00:00 Time AM Vitamin B12 Level 915 Vitamin D 22.7 L 1,25-Dihydroxy Bedside Glucose 148 145 Test 02/02/19 21:37 02/03/19 01:38 02/03/19 05:51 02/03/19 06:24 Bedside Glucose 139 150 177 White Blood Count 9.5 # Red Blood Count 3.51 L Hemoglobin 10.9 L Hematocrit 33.9 L Mean Corpuscular 96.6 Volume Mean Corpuscular 31.1 Hemoglobin Mean Corpuscular 32.2 Hemoglobin Concent Red Cell 13.6 Distribution Width Platelet Count 275 Mean Platelet 11.1 H Volume Immature 0.800 H Granulocytes % Neutrophils % 82.0 H Lymphocytes % 10.7 L Monocytes % 6.1 Eosinophils % 0.2 Basophils % 0.2 Nucleated Red 0.0 Blood Cells % Immature 0.080 H Granulocytes # Neutrophils # 7.8 H Lymphocytes # 1.0 Monocytes # 0.6 Eosinophils # 0.0 Basophils # 0.0 Nucleated Red 0.0 Blood Cells # Sodium Level 146 H Potassium Level 3.4 L Chloride Level 105 Carbon Dioxide 29 Level Anion Gap 12 Blood Urea 55 H Nitrogen Creatinine 1.70 H Est Glomerular Filtrat Rate mL/min Glucose Level 132 Calcium Level 8.8 Medications Medication Current Medications IV Flush (NS 3 ml) 3 ml PER PROTOCOL IV ; Start 02/01/19 at 05:00 Ondansetron HCl (Zofran Inj) 4 mg Q6H PRN IV NAUSEA/VOMITING; Start 02/01/19 at 05:00 Nitroglycerin (Nitroglycerin (Sl Tab) 0.4 Mg) 1 tab Q5M PRN SL .CHEST PAIN; Start 02/01/19 at 05:00 Acetaminophen (Tylenol Tab) 650 mg Q6H PRN PO .PAIN 1-3 OR TEMP; Start 02/01/19 at 05:00 Albuterol/ Ipratropium (Duoneb) 3 ml Q2H RESP THERAPY PRN HHN SHORTNESS OF BREATH Last administered on 02/02/19 04:30; Admin Dose 3 ML; Start 02/01/19 at 05:00 Diagnostic Test (Pha) (Accu-Chek) 1 ea 02 XX ; Start 02/02/19 at 02:00 Insulin Glargine (Lantus) 10 units DAILY@2000 SC Last administered on 02/02/19 22:03; Admin Dose 10 UNITS; Start 02/01/19 at 20:00 Ferrous Sulfate (Ferrous Sulfate (Ec)) 325 mg BID PO Last administered on 02/02/19 09:49; Admin Dose 325 MG; Start 02/01/19 at 09:00 Hydrocodone Bit/ Homatropine Methylb (Hycodan Liquid) 5 ml DAILY PRN PO COUGH; Start 02/01/19 at 05:00 Levothyroxine Sodium (Synthroid) 75 mcg BEFORE BREAKFAST PO Last administered on 02/01/19 09:07; Admin Dose 75 MCG; Start 02/01/19 at 07:00 Lubiprostone (Amitiza) 24 mcg WITH BREAKFAST DINNE PO Last administered on 02/01/19 17:43; Admin Dose 24 MCG; Start 02/01/19 at 08:00 Meclizine HCl (Antivert) 25 mg TID PO Last administered on 02/02/19 09:49; Admin Dose 25 MG; Start 02/01/19 at 09:00 Polyethylene Glycol (Miralax) 17 gm DAILY PO Last administered on 02/02/19 09:48; Admin Dose 17 GM; Start 02/01/19 at 09:00 Sotalol HCl (Betapace) 40 mg BID PO Last administered on 02/02/19 09:50; Admin Dose 40 MG; Start 02/01/19 at 09:00 Pantoprazole (Protonix Tab) 40 mg DAILY@06 PO Last administered on 02/01/19 07:17; Admin Dose 40 MG; Start 02/01/19 at 06:00 Miscellaneous Information 1 ea NOTE XX ; Start 02/01/19 at 05:30 Glucose (Glutose) 15 gm Q15M PRN PO DECREASED GLUCOSE; Start 02/01/19 at 05:30 Glucose (Glutose) 22.5 gm Q15M PRN PO DECREASED GLUCOSE; Start 02/01/19 at 05:30 Dextrose (D50w Syringe) 25 ml Q15M PRN IV DECREASED GLUCOSE; Start 02/01/19 at 05:30 Dextrose (D50w Syringe) 50 ml Q15M PRN IV DECREASED GLUCOSE; Start 02/01/19 at 05:30 Glucagon (Glucagen) 1 mg Q15M PRN IM DECREASED GLUCOSE; Start 02/01/19 at 05:30 Glucose (Glutose) 15 gm Q15M PRN BUCCAL DECREASED GLUCOSE; Start 02/01/19 at 05:30 Docusate Sodium (Colace Liquid Cup) 100 mg DAILY PO Last administered on 02/02/19 09:48; Admin Dose 100 MG; Start 02/01/19 at 13:30 Patient Own Medication 1 ea HS BOTH EYES Last administered on 02/01/19 22:30; Admin Dose 1 EA; Start 02/01/19 at 21:00 Patient Own Medication 1 ea BID BOTH EYES Last administered on 02/02/19 09:43; Admin Dose 1 EA; Start 02/01/19 at 21:00 Apixaban (Eliquis) 2.5 mg BID PO Last administered on 02/02/19 09:49; Admin Dose 2.5 MG; Start 02/01/19 at 21:00 Benzonatate (Tessalon) 100 mg TID PRN PO COUGH Last administered on 02/02/19 09:49; Admin Dose 100 MG; Start 02/02/19 at 02:30 Piperacillin Sod/ Tazobactam Sod 100 ml @ 25 mls/hr Q8 IVPB Last administered on 02/03/19at 06:25; Admin Dose 25 MLS/HR; Start 02/02/19 at 09:01 Vancomycin HCl (Vanco Iv Per Pharmacy) VANCOMYCIN PER PHARMACY PER PROTOCOL XX ; Start 02/02/19 at 06:30 Eye Lubricant (Refresh Plus) 1 drop Q4H PRN BOTH EYES .DRY EYES; Start 02/02/19 at 10:00 Insulin Aspart (Novolog Insulin Pen) NOVOLOG *MILD* ALGORITHM Q4 SC Last administered on 02/03/19 06:32; Admin Dose 1 UNIT; Start 02/02/19 at 13:00 Allopurinol (Zyloprim) 100 mg DAILY PO ; Start 02/02/19 at 10:30 Linagliptin (Tradjenta) 5 mg DAILY PO ; Start 02/02/19 at 10:30 Gentamicin Sulfate (Gentamicin 0.3% Oph Drop) 1 drop Q4 RIGHT EYE Last administered on 02/03/19at 06:25; Admin Dose 1 DROP; Start 02/02/19 at 13:00 Albuterol/ Ipratropium (Duoneb) 3 ml Q4H RESP THERAPY HHN Last administered on 02/03/19at 08:04; Admin Dose 3 ML; Start 02/02/19 at 13:00 Vancomycin/Sodium Chloride 250 ml @ 125 mls/hr Q48H IVPB ; Start 02/04/19 at 09:00 Dextrose/Sodium Chloride 1,000 ml @ 70 mls/hr [id number] IV Last administered on 02/02/19at 22:21; Admin Dose 70 MLS/HR; Start 02/02/19 at 22:00 ANDREA KHAN NP Feb 03, 2019 10:19
[2019-02-03] MEDS: SOTALOL 80 MG TAB PO SCH ×2 (10:45→21:20)
[2019-02-03] MEDS: APIXABAN 5 MG TABLET PO SCH ×2 (10:46→21:21)
[2019-02-03] MEDS: ALLOPURINOL 100 MG TAB PO SCH (10:46)
[2019-02-03] MEDS: POLYETHYLENE GLYCOL 17 GM PACKET PO SCH (10:46)
[2019-02-03] MEDS: MECLIZINE 25 MG TAB PO SCH ×3 (10:47→21:00)
[2019-02-03] MEDS: DOCUSATE SODIUM 10 MG/ML (10ML CUP) PO SCH (10:47)
[2019-02-03] MEDS: FERROUS SULFATE (EC) 325 MG TAB PO SCH ×2 (10:47→21:21)
[2019-02-03] MEDS: LINAGLIPTIN 5 MG TABLET PO SCH (10:47)
--- NOTE | 2019-02-03 11:01 | CONS ---
Assessment/Plan Assessment/Plan Assessment/Plan (Daily) Assessment recommendations; 1. Patient admitted with bilateral pneumonia with clinical improvement. 2. Acute encephalopathy with significant interval improvement as well. Possibly related to sepsis and pneumonia. 3. Chronic atrial fibrillation. 4. Chronic renal insufficiency. 5. History of gout. 6. History of cardiac arrhythmia, status post pacemaker placement in the past. 7. Hypothyroidism. 8. Diabetes. 9. Chronic anemia. Continue current supportive care. Obtain follow-up chest x-ray 24 hours. I did have a detailed discussion with the patient's son at bedside and answered all hi s questions. Consultation Date/Type/Reason Admit Date/Time Feb 02, 2019 at 10:08 Initial Consult Date 02/02/19 Type of Consult Pulmonary Pulmonary consult requested for evaluation of hypoxemia. Patient is a 88-year-old lady who was admitted to the hospital brought in from home with complaints of shortness of breath. Upon evaluation patient be diagnosed with pneumonia as well as possible CHF. Patient has been started on appropriate antimicrobial regimen as well as intravenous Lasix. The patient is quite lethargic and according to the patient's daughter who was present in the room the patient has been regular for the last 2 months and was recently admitted to [facility] from [facility] where she was admitted couple of weeks ago patient however did not appear to be in any distress.. History was obtained from medical records as well as from patient's daughter who was present in the room. Past medical history; 1. Chronic atrial fibrillation 2. Diabetes. 3. Chronic renal insufficiency. 4. Hypothyroidism. 5. Chronic anemia. 6. Questionable CHF. Medications; reviewed. Allergies; none. Social history; noncontributory. Family history; patient is a , has supportive family. Lives with her daughter. 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 Review of system; unable to be obtained. General exam; elderly female, awake, somewhat responsive currently no distress. Requesting Provider: ANDREA KHAN NP Date/Time of Note DATE: 02/03/19 TIME: 10:59 24 HR Interval Summary Free Text/Dictation Patient's condition is significantly improved. Currently sitting in a chair by bedside. Remains awake and alert. Much more alert and responsive compared to yesterday. General exam; elderly female, currently no distress. No drooling observed. Exam/Review of Systems Exam Vitals Vital Signs Date Temp Pulse Resp B/P (MAP) Pulse Ox O2 O2 Flow FiO2 Time Delivery Rate 02/03/19 97.6 60 19 109/53 97 08:28 (71) 02/03/19 2.0 08:05 02/03/19 Nasal 08:05 Cannula 02/02/19 30 04:35 Intake and Output 02/02/19 02/02/19 02/03/19 1515:00 23:00 07:00 IntakeIntake Total 100 ml 450 ml OutputOutput Total 450 ml 550 ml BalanceBalance -350 ml -100 ml Exam HEENT exam; supple neck, no JVD. No lymphadenopathy. Midline trachea. No thyromegaly. Patient has a multiple carious teeth. Pharynx is clear. Chest exam; diminished but clear breath sounds. S1-S2 audible, no murmurs. I rregular rhythm. Pacemaker in left chest wall. Abdomen exam; soft, nondistended. No organomegaly. Bowel sounds audible. Extremity exam; no peripheral edema or clubbing. [employer]BE TE[employer]ER exam; is awake and alert. Exhibiting no focal deficit. Showing significant improvement in generalized weakness compared to yesterday. Results Result Diagram: 02/03/19 0551 02/03/19 0551 Results 24hrs Laboratory Tests Test 02/02/19 11:04 02/02/19 12:39 02/02/19 17:10 02/02/19 21:37 Vitamin B12 Level 915 Vitamin D 1,25-Dihydroxy 22.7 L Bedside Glucose 148 145 139 Test 02/03/19 01:38 02/03/19 05:51 02/03/19 06:24 02/03/19 10:44 Bedside Glucose 150 177 163 White Blood Count 9.5 # Red Blood Count 3.51 L Hemoglobin 10.9 L Hematocrit 33.9 L Mean Corpuscular Volume 96.6 Mean Corpuscular 31.1 Hemoglobin Mean Corpuscular 32.2 Hemoglobin Concent Red Cell Distribution 13.6 Width Platelet Count 275 Mean Platelet Volume 11.1 H Immature Granulocytes % 0.800 H Neutrophils % 82.0 H Lymphocytes % 10.7 L Monocytes % 6.1 Eosinophils % 0.2 Basophils % 0.2 Nucleated Red Blood 0.0 Cells % Immature Granulocytes # 0.080 H Neutrophils # 7.8 H Lymphocytes # 1.0 Monocytes # 0.6 Eosinophils # 0.0 Basophils # 0.0 Nucleated Red Blood 0.0 Cells # Sodium Level 146 H Potassium Level 3.4 L Chloride Level 105 Carbon Dioxide Level 29 Anion Gap 12 Blood Urea Nitrogen 55 H Creatinine 1.70 H Est Glomerular Filtrat Rate mL/min Glucose Level 132 Calcium Level 8.8 Medications Medication Current Medications IV Flush (NS 3 ml) 3 ml PER PROTOCOL IV ; Start 02/01/19 at 05:00 Ondansetron HCl (Zofran Inj) 4 mg Q6H PRN IV NAUSEA/VOMITING; Start 02/01/19 at 05:00 Nitroglycerin (Nitroglycerin (Sl Tab) 0.4 Mg) 1 tab Q5M PRN SL .CHEST PAIN; Start 02/01/19 at 05:00 Acetaminophen (Tylenol Tab) 650 mg Q6H PRN PO .PAIN 1-3 OR TEMP; Start 02/01/19 at 05:00 Albuterol/ Ipratropium (Duoneb) 3 ml Q2H RESP THERAPY PRN HHN SHORTNESS OF BREATH Last administered on 02/02/19 04:30; Admin Dose 3 ML; Start 02/01/19 at 05:00 Diagnostic Test (Pha) (Accu-Chek) 1 ea 02 XX ; Start 02/02/19 at 02:00 Insulin Glargine (Lantus) 10 units DAILY@2000 SC Last administered on 02/02/19 22:03; Admin Dose 10 UNITS; Start 02/01/19 at 20:00 Ferrous Sulfate (Ferrous Sulfate (Ec)) 325 mg BID PO Last administered on 02/02/19 09:49; Admin Dose 325 MG; Start 02/01/19 at 09:00 Hydrocodone Bit/ Homatropine Methylb (Hycodan Liquid) 5 ml DAILY PRN PO COUGH; Start 02/01/19 at 05:00 Levothyroxine Sodium (Synthroid) 75 mcg BEFORE BREAKFAST PO Last administered on 02/01/19 09:07; Admin Dose 75 MCG; Start 02/01/19 at 07:00 Lubiprostone (Amitiza) 24 mcg WITH BREAKFAST DINNE PO Last administered on 02/01/19 17:43; Admin Dose 24 MCG; Start 02/01/19 at 08:00 Meclizine HCl (Antivert) 25 mg TID PO Last administered on 02/02/19 09:49; Admin Dose 25 MG; Start 02/01/19 at 09:00 Polyethylene Glycol (Miralax) 17 gm DAILY PO Last administered on 02/02/19 09:48; Admin Dose 17 GM; Start 02/01/19 at 09:00 Sotalol HCl (Betapace) 40 mg BID PO Last administered on 02/02/19 09:50; Admin Dose 40 MG; Start 02/01/19 at 09:00 Pantoprazole (Protonix Tab) 40 mg DAILY@06 PO Last administered on 02/01/19 07:17; Admin Dose 40 MG; Start 02/01/19 at 06:00 Miscellaneous Information 1 ea NOTE XX ; Start 02/01/19 at 05:30 Glucose (Glutose) 15 gm Q15M PRN PO DECREASED GLUCOSE; Start 02/01/19 at 05:30 Glucose (Glutose) 22.5 gm Q15M PRN PO DECREASED GLUCOSE; Start 02/01/19 at 05:30 Dextrose (D50w Syringe) 25 ml Q15M PRN IV DECREASED GLUCOSE; Start 02/01/19 at 05:30 Dextrose (D50w Syringe) 50 ml Q15M PRN IV DECREASED GLUCOSE; Start 02/01/19 at 05:30 Glucagon (Glucagen) 1 mg Q15M PRN IM DECREASED GLUCOSE; Start 02/01/19 at 05:30 Glucose (Glutose) 15 gm Q15M PRN BUCCAL DECREASED GLUCOSE; Start 02/01/19 at 05:30 Docusate Sodium (Colace Liquid Cup) 100 mg DAILY PO Last administered on 02/02/19 09:48; Admin Dose 100 MG; Start 02/01/19 at 13:30 Patient Own Medication 1 ea HS BOTH EYES Last administered on 02/01/19 22:30; Admin Dose 1 EA; Start 02/01/19 at 21:00 Patient Own Medication 1 ea BID BOTH EYES Last administered on 02/02/19 09:43; Admin Dose 1 EA; Start 02/01/19 at 21:00 Apixaban (Eliquis) 2.5 mg BID PO Last administered on 02/02/19 09:49; Admin Dose 2.5 MG; Start 02/01/19 at 21:00 Benzonatate (Tessalon) 100 mg TID PRN PO COUGH Last administered on 02/02/19 09:49; Admin Dose 100 MG; Start 02/02/19 at 02:30 Piperacillin Sod/ Tazobactam Sod 100 ml @ 25 mls/hr Q8 IVPB Last administered on 02/03/19 06:25; Admin Dose 25 MLS/HR; Start 02/02/19 at 09:01 Vancomycin HCl (Vanco Iv Per Pharmacy) VANCOMYCIN PER PHARMACY PER PROTOCOL XX ; Start 02/02/19 at 06:30 Eye Lubricant (Refresh Plus) 1 drop Q4H PRN BOTH EYES .DRY EYES; Start 02/02/19 at 10:00 Insulin Aspart (Novolog Insulin Pen) NOVOLOG *MILD* ALGORITHM Q4 SC Last administered on 02/03/19at 06:32; Admin Dose 1 UNIT; Start 02/02/19 at 13:00 Allopurinol (Zyloprim) 100 mg DAILY PO ; Start 02/02/19 at 10:30 Linagliptin (Tradjenta) 5 mg DAILY PO ; Start 02/02/19 at 10:30 Gentamicin Sulfate (Gentamicin 0.3% Oph Drop) 1 drop Q4 RIGHT EYE Last administered on 02/03/19 06:25; Admin Dose 1 DROP; Start 02/02/19 at 13:00 Albuterol/ Ipratropium (Duoneb) 3 ml Q4H RESP THERAPY HHN Last administered on 02/03/19at 08:04; Admin Dose 3 ML; Start 02/02/19 at 13:00 Vancomycin/Sodium Chloride 250 ml @ 125 mls/hr Q48H IVPB ; Start 02/04/19 at 09:00 Dextrose/Sodium Chloride 1,000 ml @ 70 mls/hr [id number] IV Last administered on 02/02/19at 22:21; Admin Dose 70 MLS/HR; Start 02/02/19 at 22:00 DENTON ACHARYA Feb 03, 2019 11:01
[2019-02-03] MEDS ORDERED: POTASSIUM CHLORIDE (SR) 20 MEQ TAB PO STA (12:36)
--- NOTE | 2019-02-03 12:42 | CONS ---
Assessment/Plan Assessment/Plan Assessment/Plan (Daily) 1. acute kidney injury on CKD due to hemodyanmics from CHF 2. acute CHF, acute on chronic diastolic CHF, ECHO showed EF 60% with stage II diastoilc dysfunction 3. H/o HTN 4. H/o HL 5. Anemia of CKD 6. H/o history of CHF, atrial fibrillation, diabetes, hypothyroidism, CKD, GI bleed, pacemaker, 7 Pneumonia Plan -Talk to pharmacy about dose adjusting antibiotics - ? DC Vanco -Decrease fluids - cw lasix 20mg pO BID, BUN/Cr 49/1.54- 55/1.70, fluctating - cw [place] for now - ? rehab Consultation Date/Type/Reason Admit Date/Time Feb 02, 2019 at 10:08 Initial Consult Date 02/02/19 Requesting Provider: ANDREA KHAN NP Date/Time of Note DATE: 02/03/19 TIME: 12:38 24 HR Interval Summary Free Text/Dictation Pt sleepy Exam/Review of Systems Exam Vitals Vital Signs Date Temp Pulse Resp B/P (MAP) Pulse Ox O2 O2 Flow FiO2 Time Delivery Rate 02/03/19 97.6 63 19 115/57 98 11:52 (76) 02/03/19 2.0 08:05 02/03/19 Nasal 08:05 Cannula 02/02/19 30 04:35 Intake and Output 02/02/19 02/02/19 02/03/19 1414:59 22:59 06:59 IntakeIntake Total 550 ml OutputOutput Total 450 ml 550 ml BalanceBalance -450 ml 0 ml Exam PHYSICAL EXAM: Constitutional: Frail looking, elderly female, not in acute distress. Psych: nl mood/affect, no complaints Head: atraumatic, normocephalic Eyes: nl conjunctiva, nl sclera ENMT: mucosa pink and moist, nl external ears & nose Neck: non-tender, supple Respiratory: decreased movemnt on rt Cardiovascular: +Rhonchi bilaterally. Diminished bases. nl pulses, regular rate and rhythm Gastrointestinal: non-tender, soft, bowel sounds active in all 4 quadrants. Musculoskeletal/extremities: nl extremities to inspection, motor strength equal bilaterally, no focal deficit. Normal pulses,no cyanosis, no edema. Neurological: Alert oriented 3,nl speech, nl strength Skin: nl turgor Results Result Diagram: 02/03/19 0551 02/03/19 0551 Results 24hrs Laboratory Tests Test 02/02/19 12:39 02/02/19 17:10 02/02/19 21:37 02/03/19 01:38 Bedside Glucose 148 145 139 150 Test 02/03/19 05:51 02/03/19 06:24 02/03/19 10:44 White Blood Count 9.5 # Red Blood Count 3.51 L Hemoglobin 10.9 L Hematocrit 33.9 L Mean Corpuscular Volume 96.6 Mean Corpuscular 31.1 Hemoglobin Mean Corpuscular 32.2 Hemoglobin Concent Red Cell Distribution 13.6 Width Platelet Count 275 Mean Platelet Volume 11.1 H Immature Granulocytes % 0.800 H Neutrophils % 82.0 H Lymphocytes % 10.7 L Monocytes % 6.1 Eosinophils % 0.2 Basophils % 0.2 Nucleated Red Blood 0.0 Cells % Immature Granulocytes # 0.080 H Neutrophils # 7.8 H Lymphocytes # 1.0 Monocytes # 0.6 Eosinophils # 0.0 Basophils # 0.0 Nucleated Red Blood 0.0 Cells # Sodium Level 146 H Potassium Level 3.4 L Chloride Level 105 Carbon Dioxide Level 29 Anion Gap 12 Blood Urea Nitrogen 55 H Creatinine 1.70 H Est Glomerular Filtrat Rate mL/min Glucose Level 132 Calcium Level 8.8 Bedside Glucose 177 163 Medications Medication Current Medications IV Flush (NS 3 ml) 3 ml PER PROTOCOL IV ; Start 02/01/19 at 05:00 Ondansetron HCl (Zofran Inj) 4 mg Q6H PRN IV NAUSEA/VOMITING; Start 02/01/19 at 05:00 Nitroglycerin (Nitroglycerin (Sl Tab) 0.4 Mg) 1 tab Q5M PRN SL .CHEST PAIN; Start 02/01/19 at 05:00 Acetaminophen (Tylenol Tab) 650 mg Q6H PRN PO .PAIN 1-3 OR TEMP; Start 02/01/19 at 05:00 Albuterol/ Ipratropium (Duoneb) 3 ml Q2H RESP THERAPY PRN HHN SHORTNESS OF BREATH Last administered on 02/02/19at 04:30; Admin Dose 3 ML; Start 02/01/19 at 05:00 Diagnostic Test (Pha) (Accu-Chek) 1 ea 02 XX ; Start 02/02/19 at 02:00 Insulin Glargine (Lantus) 10 units DAILY@2000 SC Last administered on 02/02/19 22:03; Admin Dose 10 UNITS; Start 02/01/19 at 20:00 Ferrous Sulfate (Ferrous Sulfate (Ec)) 325 mg BID PO Last administered on 02/03/19 10:47; Admin Dose 325 MG; Start 02/01/19 at 09:00 Hydrocodone Bit/ Homatropine Methylb (Hycodan Liquid) 5 ml DAILY PRN PO COUGH; Start 02/01/19 at 05:00 Levothyroxine Sodium (Synthroid) 75 mcg BEFORE BREAKFAST PO Last administered on 02/01/19 09:07; Admin Dose 75 MCG; Start 02/01/19 at 07:00 Lubiprostone (Amitiza) 24 mcg WITH BREAKFAST DINNE PO Last administered on 02/01/19 17:43; Admin Dose 24 MCG; Start 02/01/19 at 08:00 Meclizine HCl (Antivert) 25 mg TID PO Last administered on 02/03/19 10:47; Admin Dose 25 MG; Start 02/01/19 at 09:00 Polyethylene Glycol (Miralax) 17 gm DAILY PO Last administered on 02/03/19 10:46; Admin Dose 17 GM; Start 02/01/19 at 09:00 Sotalol HCl (Betapace) 40 mg BID PO Last administered on 02/02/19 09:50; Admin Dose 40 MG; Start 02/01/19 at 09:00 Pantoprazole (Protonix Tab) 40 mg DAILY@06 PO Last administered on 02/01/19 07:17; Admin Dose 40 MG; Start 02/01/19 at 06:00 Miscellaneous Information 1 ea NOTE XX ; Start 02/01/19 at 05:30 Glucose (Glutose) 15 gm Q15M PRN PO DECREASED GLUCOSE; Start 02/01/19 at 05:30 Glucose (Glutose) 22.5 gm Q15M PRN PO DECREASED GLUCOSE; Start 02/01/19 at 05:30 Dextrose (D50w Syringe) 25 ml Q15M PRN IV DECREASED GLUCOSE; Start 02/01/19 at 05:30 Dextrose (D50w Syringe) 50 ml Q15M PRN IV DECREASED GLUCOSE; Start 02/01/19 at 05:30 Glucagon (Glucagen) 1 mg Q15M PRN IM DECREASED GLUCOSE; Start 02/01/19 at 05:30 Glucose (Glutose) 15 gm Q15M PRN BUCCAL DECREASED GLUCOSE; Start 02/01/19 at 05:30 Docusate Sodium (Colace Liquid Cup) 100 mg DAILY PO Last administered on 02/03/19 10:47; Admin Dose 100 MG; Start 02/01/19 at 13:30 Patient Own Medication 1 ea HS BOTH EYES Last administered on 02/01/19 22:30; Admin Dose 1 EA; Start 02/01/19 at 21:00 Patient Own Medication 1 ea BID BOTH EYES Last administered on 02/03/19 09:00; Admin Dose 1 EA; Start 02/01/19 at 21:00 Apixaban (Eliquis) 2.5 mg BID PO Last administered on 02/03/19 10:46; Admin Dose 2.5 MG; Start 02/01/19 at 21:00 Benzonatate (Tessalon) 100 mg TID PRN PO COUGH Last administered on 02/02/19 09:49; Admin Dose 100 MG; Start 02/02/19 at 02:30 Piperacillin Sod/ Tazobactam Sod 100 ml @ 25 mls/hr Q8 IVPB Last administered on 02/03/19 06:25; Admin Dose 25 MLS/HR; Start 02/02/19 at 09:01 Vancomycin HCl (Vanco Iv Per Pharmacy) VANCOMYCIN PER PHARMACY PER PROTOCOL XX ; Start 02/02/19 at 06:30 Eye Lubricant (Refresh Plus) 1 drop Q4H PRN BOTH EYES .DRY EYES; Start 02/02/19 at 10:00 Insulin Aspart (Novolog Insulin Pen) NOVOLOG *MILD* ALGORITHM Q4 SC Last administered on 02/03/19 10:59; Admin Dose 1 UNIT; Start 02/02/19 at 13:00 Allopurinol (Zyloprim) 100 mg DAILY PO Last administered on 02/03/19 10:46; Admin Dose 100 MG; Start 02/02/19 at 10:30 Linagliptin (Tradjenta) 5 mg DAILY PO Last administered on 02/03/19 10:47; Admin Dose 5 MG; Start 02/02/19 at 10:30 Gentamicin Sulfate (Gentamicin 0.3% Oph Drop) 1 drop Q4 RIGHT EYE Last administered on 02/03/19at 10:49; Admin Dose 1 DROP; Start 02/02/19 at 13:00 Albuterol/ Ipratropium (Duoneb) 3 ml Q4H RESP THERAPY HHN Last administered on 02/03/19at 08:04; Admin Dose 3 ML; Start 02/02/19 at 13:00 Vancomycin/Sodium Chloride 250 ml @ 125 mls/hr Q48H IVPB ; Start 02/04/19 at 09:00 Potassium Chloride (Klor-Con 20) 40 meq ONCE STAT PO ; Start 02/03/19 at 12:36; Stop 02/03/19 at 12:37; Status UNV JESSE CABEZAS MD Feb 03, 2019 12:42
[2019-02-03] MEDS: DEXTROSE 5%-0.45% NACL 500 ML IV SCH (12:50)
--- NOTE | 2019-02-03 14:42 | CONS ---
Assessment/Plan Assessment/Plan Hospital Course (Demo Recall) IMP: 1.AF-being paced at this time on eliquis 2.PPM-no signs of dysfunction at this time 3.HTN 4.DM 5.sob-likley PNA with possible component of CHF-diastolic EF 60% by echo this admit 6. Hypothyroid Recc: -Tele -serial ecg's -Continue sotalol asa tolerated only -Continue abx's and f/u cx data -Follow volume status clsoely with further diuresis as necessary -Continue bronchodilators Consultation Date/Type/Reason Admit Date/Time Feb 02, 2019 at 10:08 Initial Consult Date 02/02/19 Type of Consult Cardiology Reason for Consultation PPM/AF Requesting Provider: ANDREA KHAN NP Date/Time of Note DATE: 02/03/19 TIME: 14:38 Exam/Review of Systems Vital Signs Vitals Vital Signs Date Temp Pulse Resp B/P (MAP) Pulse Ox O2 O2 Flow FiO2 Time Delivery Rate 02/03/19 67 18 98 Nasal 2.0 13:11 Cannula 02/03/19 97.6 115/57 11:52 (76) 02/02/19 30 04:35 Intake and Output 02/02/19 02/02/19 02/03/19 1414:59 22:59 06:59 IntakeIntake Total 550 ml OutputOutput Total 450 ml 550 ml BalanceBalance -450 ml 0 ml Exam Exam Review of Systems: CONSTITUTIONAL: No fevers, chills. PULMONARY: No sob CARDIOVASCULAR: No chest pain/palpitations GASTROINTESTINAL: No nausea/vomiting. GENITOURINARY: No hematuria/dysuria. MUSCULOSKELETAL: No myagias/arthalgias. PSYCHIATRIC: The patient denies depression. NEUROLOGIC: No weakness Constitutional: other (sleeping arousable) Psych: no complaints Head: normocephalic ENMT: mucosa pink and moist Neck: supple, jvd (9 cm water) Respiratory: diminished breath sounds (at bases/B) Cardiovascular: regular rate and rhythm Gastrointestinal: soft, non-tender Musculoskeletal: muscle tone (normal) Extremities: edema (none) Neurological: lethargic Labs Result Diagram: 02/03/19 0551 02/03/19 0551 Results 24hrs Laboratory Tests Test 02/02/19 17:10 02/02/19 21:37 02/03/19 01:38 02/03/19 05:51 Bedside Glucose 145 139 150 White Blood Count 9.5 # Red Blood Count 3.51 L Hemoglobin 10.9 L Hematocrit 33.9 L Mean Corpuscular 96.6 Volume Mean Corpuscular 31.1 Hemoglobin Mean Corpuscular 32.2 Hemoglobin Concent Red Cell Distribution 13.6 Width Platelet Count 275 Mean Platelet Volume 11.1 H Immature Granulocytes 0.800 H % Neutrophils % 82.0 H Lymphocytes % 10.7 L Monocytes % 6.1 Eosinophils % 0.2 Basophils % 0.2 Nucleated Red Blood 0.0 Cells % Immature Granulocytes 0.080 H # Neutrophils # 7.8 H Lymphocytes # 1.0 Monocytes # 0.6 Eosinophils # 0.0 Basophils # 0.0 Nucleated Red Blood 0.0 Cells # Sodium Level 146 H Potassium Level 3.4 L Chloride Level 105 Carbon Dioxide Level 29 Anion Gap 12 Blood Urea Nitrogen 55 H Creatinine 1.70 H Est Glomerular Filtrat Rate mL/min Glucose Level 132 Calcium Level 8.8 Test 02/03/19 06:24 02/03/19 10:44 02/03/19 12:51 Bedside Glucose 177 163 Lab Scanned Report REFERENCE LAB Medications Medications Current Medications IV Flush (NS 3 ml) 3 ml PER PROTOCOL IV ; Start 02/01/19 at 05:00 Ondansetron HCl (Zofran Inj) 4 mg Q6H PRN IV NAUSEA/VOMITING; Start 02/01/19 at 05:00 Nitroglycerin (Nitroglycerin (Sl Tab) 0.4 Mg) 1 tab Q5M PRN SL .CHEST PAIN; Start 02/01/19 at 05:00 Acetaminophen (Tylenol Tab) 650 mg Q6H PRN PO .PAIN 1-3 OR TEMP; Start 02/01/19 at 05:00 Albuterol/ Ipratropium (Duoneb) 3 ml Q2H RESP THERAPY PRN HHN SHORTNESS OF BREATH Last administered on 02/02/19at 04:30; Admin Dose 3 ML; Start 02/01/19 at 05:00 Diagnostic Test (Pha) (Accu-Chek) 1 ea 02 XX ; Start 02/02/19 at 02:00 Insulin Glargine (Lantus) 10 units DAILY@2000 SC Last administered on 02/02/19at 22:03; Admin Dose 10 UNITS; Start 02/01/19 at 20:00 Ferrous Sulfate (Ferrous Sulfate (Ec)) 325 mg BID PO Last administered on 02/03/19 10:47; Admin Dose 325 MG; Start 02/01/19 at 09:00 Hydrocodone Bit/ Homatropine Methylb (Hycodan Liquid) 5 ml DAILY PRN PO COUGH; Start 02/01/19 at 05:00 Levothyroxine Sodium (Synthroid) 75 mcg BEFORE BREAKFAST PO Last administered on 02/01/19at 09:07; Admin Dose 75 MCG; Start 02/01/19 at 07:00 Lubiprostone (Amitiza) 24 mcg WITH BREAKFAST DINNE PO Last administered on 02/01/19 17:43; Admin Dose 24 MCG; Start 02/01/19 at 08:00 Meclizine HCl (Antivert) 25 mg TID PO Last administered on 02/03/19 10:47; Admin Dose 25 MG; Start 02/01/19 at 09:00 Polyethylene Glycol (Miralax) 17 gm DAILY PO Last administered on 02/03/19 10:46; Admin Dose 17 GM; Start 02/01/19 at 09:00 Sotalol HCl (Betapace) 40 mg BID PO Last administered on 02/02/19 09:50; Admin Dose 40 MG; Start 02/01/19 at 09:00 Pantoprazole (Protonix Tab) 40 mg DAILY@06 PO Last administered on 02/01/19 07:17; Admin Dose 40 MG; Start 02/01/19 at 06:00 Miscellaneous Information 1 ea NOTE XX ; Start 02/01/19 at 05:30 Glucose (Glutose) 15 gm Q15M PRN PO DECREASED GLUCOSE; Start 02/01/19 at 05:30 Glucose (Glutose) 22.5 gm Q15M PRN PO DECREASED GLUCOSE; Start 02/01/19 at 05:30 Dextrose (D50w Syringe) 25 ml Q15M PRN IV DECREASED GLUCOSE; Start 02/01/19 at 05:30 Dextrose (D50w Syringe) 50 ml Q15M PRN IV DECREASED GLUCOSE; Start 02/01/19 at 05:30 Glucagon (Glucagen) 1 mg Q15M PRN IM DECREASED GLUCOSE; Start 02/01/19 at 05:30 Glucose (Glutose) 15 gm Q15M PRN BUCCAL DECREASED GLUCOSE; Start 02/01/19 at 05:30 Docusate Sodium (Colace Liquid Cup) 100 mg DAILY PO Last administered on 02/03/19 10:47; Admin Dose 100 MG; Start 02/01/19 at 13:30 Patient Own Medication 1 ea HS BOTH EYES Last administered on 02/01/19 22:30; Admin Dose 1 EA; Start 02/01/19 at 21:00 Patient Own Medication 1 ea BID BOTH EYES Last administered on 02/03/19 09:00; Admin Dose 1 EA; Start 02/01/19 at 21:00 Apixaban (Eliquis) 2.5 mg BID PO Last administered on 02/03/19 10:46; Admin Dose 2.5 MG; Start 02/01/19 at 21:00 Benzonatate (Tessalon) 100 mg TID PRN PO COUGH Last administered on 02/02/19 09:49; Admin Dose 100 MG; Start 02/02/19 at 02:30 Piperacillin Sod/ Tazobactam Sod 100 ml @ 25 mls/hr Q8 IVPB Last administered on 02/03/19 14:29; Admin Dose 25 MLS/HR; Start 02/02/19 at 09:01 Vancomycin HCl (Vanco Iv Per Pharmacy) VANCOMYCIN PER PHARMACY PER PROTOCOL XX ; Start 02/02/19 at 06:30 Eye Lubricant (Refresh Plus) 1 drop Q4H PRN BOTH EYES .DRY EYES; Start 02/02/19 at 10:00 Allopurinol (Zyloprim) 100 mg DAILY PO Last administered on 02/03/19 10:46; Admin Dose 100 MG; Start 02/02/19 at 10:30 Linagliptin (Tradjenta) 5 mg DAILY PO Last administered on 02/03/19 10:47; Admin Dose 5 MG; Start 02/02/19 at 10:30 Gentamicin Sulfate (Gentamicin 0.3% Oph Drop) 1 drop Q4 RIGHT EYE Last administered on 02/03/19 10:49; Admin Dose 1 DROP; Start 02/02/19 at 13:00 Albuterol/ Ipratropium (Duoneb) 3 ml Q4H RESP THERAPY HHN Last administered on 02/03/19 13:11; Admin Dose 3 ML; Start 02/02/19 at 13:00 Vancomycin/Sodium Chloride 250 ml @ 125 mls/hr Q48H IVPB ; Start 02/04/19 at 09:00 Dextrose/Sodium Chloride 500 ml @ 40 mls/hr [id number] IV Last administered on 02/03/19at 12:50; Admin Dose 40 MLS/HR; Start 02/03/19 at 13:00 Insulin Aspart (Novolog Insulin Pen) NOVOLOG *MILD* ALGORITHM AC MEALS AND BEDTIME SC ; Start 02/03/19 at 17:30 SHAWANDA LUGO Feb 03, 2019 14:42
[2019-02-03] MEDS: INSULIN GLARGINE [LANTus] (100 UNITS/ML) SYG SC SCH (21:47)
[2019-02-04] VITALS (10 sets, daily range): BP systolic 116–131; BP diastolic 55–61; PULSE 60–76; RESP 19–20
[2019-02-04] MEDS: GENTAMICIN 0.3% 5 ML OPH RIGHT EYE SCH ×6 (01:00→20:19)
[2019-02-04] MEDS: DEXTROSE 5%-0.45% NACL 500 ML IV SCH ×3 (01:30→18:11)
[2019-02-04] MEDS: ALBUTEROL/IPRATROPIUM (NEB) 3 ML AMP HHN SCH ×6 (01:52→21:08)
[2019-02-04] MEDS: ACCU-CHEK XX SCH (02:00)
[2019-02-04] MEDS: LEVOTHYROXINE 75 MCG TAB PO SCH (05:05)
[2019-02-04] MEDS: PANTOPRAZOLE (EC) 40 MG TAB PO SCH (05:05)
[2019-02-04] MEDS: PIPER-TAZO 3.375 GM IV (PMX) 100 ML IVPB SCH ×3 (05:05→20:17)
[2019-02-04] MEDS: INSULIN ASPART [NOVOLOG] 3 ML PEN SC SCH ×4 (06:33→20:50)
[2019-02-04] MEDS: DEXTROSE 50% 50 ML SYRINGE IV PRN (06:36)
[2019-02-04] MEDS: POLYETHYLENE GLYCOL 17 GM PACKET PO SCH (08:52)
[2019-02-04] MEDS: DOCUSATE SODIUM 10 MG/ML (10ML CUP) PO SCH (08:52)
[2019-02-04] MEDS: ALLOPURINOL 100 MG TAB PO SCH (08:52)
[2019-02-04] MEDS: LUBIPROSTONE 24 MCG CAP PO SCH ×2 (08:52→18:49)
[2019-02-04] MEDS: APIXABAN 5 MG TABLET PO SCH ×2 (08:52→20:18)
[2019-02-04] MEDS: SOTALOL 80 MG TAB PO SCH ×2 (08:53→20:18)
[2019-02-04] MEDS: LINAGLIPTIN 5 MG TABLET PO SCH (08:54)
[2019-02-04] MEDS: FERROUS SULFATE (EC) 325 MG TAB PO SCH ×2 (08:54→20:17)
[2019-02-04] MEDS: PATIENT'S OWN MEDICATION BOTH EYES SCH ×3 (09:00→20:19)
--- NOTE | 2019-02-04 09:56 | CONS ---
Assessment/Plan Assessment/Plan Assessment/Plan (Daily) Assessment and recommendations; 1. Patient admitted with shortness of breath due to bilateral basilar community acquired pneumonia currently on appropriate antimicrobial regimen with significant clinical improvement. 2. Chronic atrial fibrillation. 3. History of gout. 4. Mild anemia. 5. History of hypothyroidism. 6. Marked improvement in acute encephalopathy. Continue current supportive care. Chest x-ray from today is pending. Further recommendations once chest x-ray is obtained. Consultation Date/Type/Reason Admit Date/Time Feb 02, 2019 at 10:08 Initial Consult Date 02/02/19 Type of Consult Pulmonary Pulmonary consult requested for evaluation of hypoxemia. Patient is a 88-year-old lady who was admitted to the hospital brought in from home with complaints of shortness of breath. Upon evaluation patient be diagnosed with pneumonia as well as possible CHF. Patient has been started on appropriate antimicrobial regimen as well as intravenous Lasix. The patient is quite lethargic and according to the patient's daughter who was present in the room the patient has been regular for the last 2 months and was recently admitted [facility] where she was admitted couple of weeks ago patient however did not appear to be in any distress.. History was obtained from medical records as well as from patient's daughter who was present in the room. Past medical history; 1. Chronic atrial fibrillation 2. Diabetes. 3. Chronic renal insufficiency. 4. Hypothyroidism. 5. Chronic anemia. 6. Questionable CHF. Medications; reviewed. Allergies; none. Social history; noncontributory. Family history; patient is a , has supportive family. Lives with her daughter. 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 Review of system; unable to be obtained. General exam; elderly female, awake, somewhat responsive currently no distress. Requesting Provider: ANDREA KHAN NP Date/Time of Note DATE: 02/04/19 TIME: 09:54 24 HR Interval Summary Free Text/Dictation Patient's condition is stable. Remains awake and alert. Has remained hemodynamically stable. General exam; elderly female, currently in no distress. Exam/Review of Systems Exam Vitals Vital Signs Date Temp Pulse Resp B/P (MAP) Pulse Ox O2 O2 Flow FiO2 Time Delivery Rate 02/04/19 65 18 Nasal 2.0 09:45 Cannula 02/04/19 97.7 124/56 98 07:19 (78) 3/5/19 30 04:35 Intake and Output 02/03/19 02/03/19 02/04/19 1414:59 22:59 06:59 IntakeIntake Total 540 ml 400 ml OutputOutput Total 500 ml 350 ml BalanceBalance 40 ml 50 ml Exam HEENT exam; supple neck, no JVD. No lymphadenopathy. Midline trachea. No thyromegaly. No neck masses. Patient has multiple carious teeth. Chest exam; diminished but clear breath sounds. S1-S2 audible, no murmurs. Irregular rhythm. Abdomen exam; soft, nontender. No organomegaly. Bowel sounds audible. Extremity exam; no peripheral edema clubbing. COOLING PAN TENDER exam; no focal deficit. Results Result Diagram: 02/04/19 0537 02/04/19 0537 Results 24hrs Laboratory Tests Test 02/03/19 10:44 02/03/19 12:51 02/03/19 17:54 02/03/19 21:07 Bedside Glucose 163 116 189 Lab Scanned Report REFERENCE LAB Test 02/04/19 02:43 02/04/19 05:37 02/04/19 06:32 02/04/19 06:55 Bedside Glucose 86 67 L 219 White Blood Count 9.0 Red Blood Count 3.13 L Hemoglobin 9.9 L Hematocrit 31.5 L Mean Corpuscular 100.6 Volume Mean Corpuscular 31.6 Hemoglobin Mean Corpuscular 31.4 L Hemoglobin Concent Red Cell Distribution 13.7 Width Platelet Count 269 Mean Platelet Volume 11.0 H Immature Granulocytes 1.200 H % Neutrophils % 80.9 H Lymphocytes % 9.5 L Monocytes % 7.1 Eosinophils % 0.7 Basophils % 0.6 Nucleated Red Blood 0.0 Cells % Immature Granulocytes 0.110 H # Neutrophils # 7.3 Lymphocytes # 0.9 Monocytes # 0.6 Eosinophils # 0.1 Basophils # 0.1 Nucleated Red Blood 0.0 Cells # Sodium Level 142 Potassium Level 3.6 Chloride Level 107 Carbon Dioxide Level 29 Anion Gap 6 Blood Urea Nitrogen 52 H Creatinine 1.54 H Est Glomerular Filtrat Rate mL/min Glucose Level 61 #L Calcium Level 8.8 Medications Medication Current Medications IV Flush (NS 3 ml) 3 ml PER PROTOCOL IV ; Start 02/01/19 at 05:00 Ondansetron HCl (Zofran Inj) 4 mg Q6H PRN IV NAUSEA/VOMITING; Start 02/01/19 at 05:00 Nitroglycerin (Nitroglycerin (Sl Tab) 0.4 Mg) 1 tab Q5M PRN SL .CHEST PAIN; Start 02/01/19 at 05:00 Acetaminophen (Tylenol Tab) 650 mg Q6H PRN PO .PAIN 1-3 OR TEMP Last administered on 02/03/19 23:12; Admin Dose 650 MG; Start 02/01/19 at 05:00 Albuterol/ Ipratropium (Duoneb) 3 ml Q2H RESP THERAPY PRN HHN SHORTNESS OF BREATH Last administered on 02/02/19 04:30; Admin Dose 3 ML; Start 02/01/19 at 05:00 Diagnostic Test (Pha) (Accu-Chek) 1 ea 02 XX ; Start 02/02/19 at 02:00 Insulin Glargine (Lantus) 10 units DAILY@2000 SC Last administered on 02/03/19 21:47; Admin Dose 10 UNITS; Start 02/01/19 at 20:00 Ferrous Sulfate (Ferrous Sulfate (Ec)) 325 mg BID PO Last administered on 02/04/19 08:54; Admin Dose 325 MG; Start 02/01/19 at 09:00 Hydrocodone Bit/ Homatropine Methylb (Hycodan Liquid) 5 ml DAILY PRN PO COUGH; Start 02/01/19 at 05:00 Levothyroxine Sodium (Synthroid) 75 mcg BEFORE BREAKFAST PO Last administered on 02/04/19 05:05; Admin Dose 75 MCG; Start 02/01/19 at 07:00 Lubiprostone (Amitiza) 24 mcg WITH BREAKFAST DINNE PO Last administered on 02/04/19 08:52; Admin Dose 24 MCG; Start 02/01/19 at 08:00 Meclizine HCl (Antivert) 25 mg TID PO Last administered on 02/03/19 10:47; Admin Dose 25 MG; Start 02/01/19 at 09:00 Polyethylene Glycol (Miralax) 17 gm DAILY PO Last administered on 02/04/19 08:52; Admin Dose 17 GM; Start 02/01/19 at 09:00 Sotalol HCl (Betapace) 40 mg BID PO Last administered on 02/04/19 08:53; Admin Dose 40 MG; Start 02/01/19 at 09:00 Pantoprazole (Protonix Tab) 40 mg DAILY@06 PO Last administered on 02/04/19 05:05; Admin Dose 40 MG; Start 02/01/19 at 06:00 Miscellaneous Information 1 ea NOTE XX ; Start 02/01/19 at 05:30 Glucose (Glutose) 15 gm Q15M PRN PO DECREASED GLUCOSE; Start 02/01/19 at 05:30 Glucose (Glutose) 22.5 gm Q15M PRN PO DECREASED GLUCOSE; Start 02/01/19 at 05:30 Dextrose (D50w Syringe) 25 ml Q15M PRN IV DECREASED GLUCOSE Last administered on 02/04/19 06:36; Admin Dose 25 ML; Start 02/01/19 at 05:30 Dextrose (D50w Syringe) 50 ml Q15M PRN IV DECREASED GLUCOSE; Start 02/01/19 at 05:30 Glucagon (Glucagen) 1 mg Q15M PRN IM DECREASED GLUCOSE; Start 02/01/19 at 05:30 Glucose (Glutose) 15 gm Q15M PRN BUCCAL DECREASED GLUCOSE; Start 02/01/19 at 05:30 Docusate Sodium (Colace Liquid Cup) 100 mg DAILY PO Last administered on 02/04/19 08:52; Admin Dose 100 MG; Start 02/01/19 at 13:30 Patient Own Medication 1 ea HS BOTH EYES Last administered on 02/03/19 21:20; Admin Dose 1 EA; Start 02/01/19 at 21:00 Patient Own Medication 1 ea BID BOTH EYES Last administered on 02/03/19 21:20; Admin Dose 1 EA; Start 02/01/19 at 21:00 Apixaban (Eliquis) 2.5 mg BID PO Last administered on 02/04/19 08:52; Admin Dose 2.5 MG; Start 02/01/19 at 21:00 Benzonatate (Tessalon) 100 mg TID PRN PO COUGH Last administered on 02/02/19 09:49; Admin Dose 100 MG; Start 02/02/19 at 02:30 Piperacillin Sod/ Tazobactam Sod 100 ml @ 25 mls/hr Q8 IVPB Last administered on 02/04/19 05:05; Admin Dose 25 MLS/HR; Start 02/02/19 at 09:01 Vancomycin HCl (Vanco Iv Per Pharmacy) VANCOMYCIN PER PHARMACY PER PROTOCOL XX ; Start 02/02/19 at 06:30 Eye Lubricant (Refresh Plus) 1 drop Q4H PRN BOTH EYES .DRY EYES; Start 02/02/19 at 10:00 Allopurinol (Zyloprim) 100 mg DAILY PO Last administered on 02/04/19 08:52; Admin Dose 100 MG; Start 02/02/19 at 10:30 Linagliptin (Tradjenta) 5 mg DAILY PO Last administered on 02/04/19 08:54; Admin Dose 5 MG; Start 02/02/19 at 10:30 Gentamicin Sulfate (Gentamicin 0.3% Oph Drop) 1 drop Q4 RIGHT EYE Last administered on 02/04/19 08:54; Admin Dose 1 DROP; Start 02/02/19 at 13:00 Albuterol/ Ipratropium (Duoneb) 3 ml Q4H RESP THERAPY HHN Last administered on 02/04/19 09:32; Admin Dose 3 ML; Start 02/02/19 at 13:00 Vancomycin/Sodium Chloride 250 ml @ 125 mls/hr Q48H IVPB ; Start 02/04/19 at 09:00 Dextrose/Sodium Chloride 500 ml @ 40 mls/hr [id number] IV Last administered on 02/04/19 01:30; Admin Dose 40 MLS/HR; Start 02/03/19 at 13:00 Insulin Aspart (Novolog Insulin Pen) NOVOLOG *MILD* ALGORITHM AC MEALS AND BEDTIME SC Last administered on 02/03/19 21:47; Admin Dose 1 UNIT; Start 02/03/19 at 17:30 DENTON ACHARYA Feb 04, 2019 09:56
--- NOTE | 2019-02-04 10:18 | CONS ---
Assessment/Plan Assessment/Plan Assessment/Plan (Daily) h Consultation Date/Type/Reason Admit Date/Time Feb 02, 2019 at 10:08 Initial Consult Date 02/02/19 Requesting Provider: ANDREA KHAN NP Date/Time of Note DATE: 02/04/19 TIME: 10:18 24 HR Interval Summary Free Text/Dictation h Exam/Review of Systems Exam Vitals Vital Signs Date Temp Pulse Resp B/P (MAP) Pulse Ox O2 O2 Flow FiO2 Time Delivery Rate 02/04/19 65 18 Nasal 2.0 09:45 Cannula 02/04/19 97.7 124/56 98 07:19 (78) 02/02/19 30 04:35 Intake and Output 02/03/19 02/03/19 02/04/19 1515:00 23:00 07:00 IntakeIntake Total 540 ml 400 ml OutputOutput Total 500 ml 350 ml BalanceBalance 40 ml 50 ml Exam h Results Result Diagram: 02/04/19 0537 02/04/19 0537 Results 24hrs Laboratory Tests Test 02/03/19 10:44 02/03/19 12:51 02/03/19 17:54 02/03/19 21:07 Bedside Glucose 163 116 189 Lab Scanned Report REFERENCE LAB Test 02/04/19 02:43 02/04/19 05:37 02/04/19 06:32 02/04/19 06:55 Bedside Glucose 86 67 L 219 White Blood Count 9.0 Red Blood Count 3.13 L Hemoglobin 9.9 L Hematocrit 31.5 L Mean Corpuscular 100.6 Volume Mean Corpuscular 31.6 Hemoglobin Mean Corpuscular 31.4 L Hemoglobin Concent Red Cell Distribution 13.7 Width Platelet Count 269 Mean Platelet Volume 11.0 H Immature Granulocytes 1.200 H % Neutrophils % 80.9 H Lymphocytes % 9.5 L Monocytes % 7.1 Eosinophils % 0.7 Basophils % 0.6 Nucleated Red Blood 0.0 Cells % Immature Granulocytes 0.110 H # Neutrophils # 7.3 Lymphocytes # 0.9 Monocytes # 0.6 Eosinophils # 0.1 Basophils # 0.1 Nucleated Red Blood 0.0 Cells # Sodium Level 142 Potassium Level 3.6 Chloride Level 107 Carbon Dioxide Level 29 Anion Gap 6 Blood Urea Nitrogen 52 H Creatinine 1.54 H Est Glomerular Filtrat Rate mL/min Glucose Level 61 #L Calcium Level 8.8 Medications Medication Current Medications IV Flush (NS 3 ml) 3 ml PER PROTOCOL IV ; Start 02/01/19 at 05:00 Ondansetron HCl (Zofran Inj) 4 mg Q6H PRN IV NAUSEA/VOMITING; Start 02/01/19 at 05:00 Nitroglycerin (Nitroglycerin (Sl Tab) 0.4 Mg) 1 tab Q5M PRN SL .CHEST PAIN; Start 02/01/19 at 05:00 Acetaminophen (Tylenol Tab) 650 mg Q6H PRN PO .PAIN 1-3 OR TEMP Last administered on 02/03/19 23:12; Admin Dose 650 MG; Start 02/01/19 at 05:00 Albuterol/ Ipratropium (Duoneb) 3 ml Q2H RESP THERAPY PRN HHN SHORTNESS OF BREATH Last administered on 02/02/19 04:30; Admin Dose 3 ML; Start 02/01/19 at 05:00 Diagnostic Test (Pha) (Accu-Chek) 1 ea 02 XX ; Start 02/02/19 at 02:00 Insulin Glargine (Lantus) 10 units DAILY@2000 SC Last administered on 02/03/19 21:47; Admin Dose 10 UNITS; Start 02/01/19 at 20:00 Ferrous Sulfate (Ferrous Sulfate (Ec)) 325 mg BID PO Last administered on 02/04/19 08:54; Admin Dose 325 MG; Start 02/01/19 at 09:00 Hydrocodone Bit/ Homatropine Methylb (Hycodan Liquid) 5 ml DAILY PRN PO COUGH; Start 02/01/19 at 05:00 Levothyroxine Sodium (Synthroid) 75 mcg BEFORE BREAKFAST PO Last administered on 02/04/19 05:05; Admin Dose 75 MCG; Start 02/01/19 at 07:00 Lubiprostone (Amitiza) 24 mcg WITH BREAKFAST DINNE PO Last administered on 02/04/19 08:52; Admin Dose 24 MCG; Start 02/01/19 at 08:00 Meclizine HCl (Antivert) 25 mg TID PO Last administered on 02/03/19 10:47; Adm in Dose 25 MG; Start 02/01/19 at 09:00 Polyethylene Glycol (Miralax) 17 gm DAILY PO Last administered on 02/04/19 08:52; Admin Dose 17 GM; Start 02/01/19 at 09:00 Sotalol HCl (Betapace) 40 mg BID PO Last administered on 02/04/19 08:53; Admin Dose 40 MG; Start 02/01/19 at 09:00 Pantoprazole (Protonix Tab) 40 mg DAILY@06 PO Last administered on 02/04/19 05:05; Admin Dose 40 MG; Start 02/01/19 at 06:00 Miscellaneous Information 1 ea NOTE XX ; Start 02/01/19 at 05:30 Glucose (Glutose) 15 gm Q15M PRN PO DECREASED GLUCOSE; Start 02/01/19 at 05:30 Glucose (Glutose) 22.5 gm Q15M PRN PO DECREASED GLUCOSE; Start 02/01/19 at 05:30 Dextrose (D50w Syringe) 25 ml Q15M PRN IV DECREASED GLUCOSE Last administered on 02/04/19 06:36; Admin Dose 25 ML; Start 02/01/19 at 05:30 Dextrose (D50w Syringe) 50 ml Q15M PRN IV DECREASED GLUCOSE; Start 02/01/19 at 05:30 Glucagon (Glucagen) 1 mg Q15M PRN IM DECREASED GLUCOSE; Start 02/01/19 at 05:30 Glucose (Glutose) 15 gm Q15M PRN BUCCAL DECREASED GLUCOSE; Start 02/01/19 at 05:30 Docusate Sodium (Colace Liquid Cup) 100 mg DAILY PO Last administered on 02/04/19 08:52; Admin Dose 100 MG; Start 02/01/19 at 13:30 Patient Own Medication 1 ea HS BOTH EYES Last administered on 02/03/19 21:20; Admin Dose 1 EA; Start 02/01/19 at 21:00 Patient Own Medication 1 ea BID BOTH EYES Last administered on 02/03/19 21:20; Admin Dose 1 EA; Start 02/01/19 at 21:00 Apixaban (Eliquis) 2.5 mg BID PO Last administered on 02/04/19 08:52; Admin Dose 2.5 MG; Start 02/01/19 at 21:00 Benzonatate (Tessalon) 100 mg TID PRN PO COUGH Last administered on 02/02/19 09:49; Admin Dose 100 MG; Start 02/02/19 at 02:30 Piperacillin Sod/ Tazobactam Sod 100 ml @ 25 mls/hr Q8 IVPB Last administered on 02/04/19 05:05; Admin Dose 25 MLS/HR; Start 02/02/19 at 09:01 Vancomycin HCl (Vanco Iv Per Pharmacy) VANCOMYCIN PER PHARMACY PER PROTOCOL XX ; Start 02/02/19 at 06:30 Eye Lubricant (Refresh Plus) 1 drop Q4H PRN BOTH EYES .DRY EYES; Start 02/02/19 at 10:00 Allopurinol (Zyloprim) 100 mg DAILY PO Last administered on 02/04/19 08:52; Admin Dose 100 MG; Start 02/02/19 at 10:30 Linagliptin (Tradjenta) 5 mg DAILY PO Last administered on 02/04/19 08:54; Admin Dose 5 MG; Start 02/02/19 at 10:30 Gentamicin Sulfate (Gentamicin 0.3% Oph Drop) 1 drop Q4 RIGHT EYE Last administered on 02/04/19 08:54; Admin Dose 1 DROP; Start 02/02/19 at 13:00 Albuterol/ Ipratropium (Duoneb) 3 ml Q4H RESP THERAPY HHN Last administered on 02/04/19 09:32; Admin Dose 3 ML; Start 02/02/19 at 13:00 Vancomycin/Sodium Chloride 250 ml @ 125 mls/hr Q48H IVPB ; Start 02/04/19 at 09:00 Dextrose/Sodium Chloride 500 ml @ 40 mls/hr [id number] IV Last administered on 02/04/19 01:30; Admin Dose 40 MLS/HR; Start 02/03/19 at 13:00 Insulin Aspart (Novolog Insulin Pen) NOVOLOG *MILD* ALGORITHM AC MEALS AND BEDTIME SC Last administered on 02/03/19 21:47; Admin Dose 1 UNIT; Start 02/03/19 at 17:30 JESSE CABEZAS MD Feb 04, 2019 10:18
--- NOTE | 2019-02-04 10:19 | CONS ---
Assessment/Plan Assessment/Plan Assessment/Plan (Daily) Assessment/Plan (Daily) 1. acute kidney injury on CKD due to hemodyanmics from CHF 2. acute CHF, acute on chronic diastolic CHF, ECHO showed EF 60% with stage II diastoilc dysfunction 3. H/o HTN 4. H/o HL 5. Anemia of CKD 6. H/o history of CHF, atrial fibrillation, diabetes, hypothyroidism, CKD, GI bleed, pacemaker, 7 Pneumonia Plan - iv lasix ? pending chest xray - dc hunt - fu monitor Cr - abx renally dosed - Consultation Date/Type/Reason Admit Date/Time Feb 02, 2019 at 10:08 Initial Consult Date 02/02/19 Requesting Provider: ANDREA KHAN NP Date/Time of Note DATE: 02/04/19 TIME: 10:19 24 HR Interval Summary Free Text/Dictation some sob chest Xray pending Exam/Review of Systems Exam Vitals Vital Signs Date Temp Pulse Resp B/P (MAP) Pulse Ox O2 O2 Flow FiO2 Time Delivery Rate 02/04/19 65 18 Nasal 2.0 09:45 Cannula 02/04/19 97.7 124/56 98 07:19 (78) 02/02/19 30 04:35 Intake and Output 02/03/19 02/03/19 02/04/19 1515:00 23:00 07:00 IntakeIntake Total 540 ml 400 ml OutputOutput Total 500 ml 350 ml BalanceBalance 40 ml 50 ml Exam onstitutional: Frail looking, elderly female, not in acute distress. Psych: nl mood/affect, no complaints Head: atraumatic, normocephalic Eyes: nl conjunctiva, nl sclera ENMT: mucosa pink and moist, nl external ears & nose Neck: non-tender, supple Respiratory: decreased movemnt on rt Cardiovascular: +Rhonchi bilaterally. Diminished bases. nl pulses, regular rate and rhythm Gastrointestinal: non-tender, soft, bowel sounds active in all 4 quadrants. Musculoskeletal/extremities: nl extremities to inspection, motor strength equal bilaterally, no focal deficit. Normal pulses,no cyanosis, no edema. Neurological: Alert oriented 3,nl speech, nl strength Skin: nl turgor Results Result Diagram: 02/04/19 0537 02/04/19 0537 Results 24hrs Laboratory Tests Test 02/03/19 10:44 02/03/19 12:51 02/03/19 17:54 02/03/19 21:07 Bedside Glucose 163 116 189 Lab Scanned Report REFERENCE LAB Test 02/04/19 02:43 02/04/19 05:37 02/04/19 06:32 02/04/19 06:55 Bedside Glucose 86 67 L 219 White Blood Count 9.0 Red Blood Count 3.13 L Hemoglobin 9.9 L Hematocrit 31.5 L Mean Corpuscular 100.6 Volume Mean Corpuscular 31.6 Hemoglobin Mean Corpuscular 31.4 L Hemoglobin Concent Red Cell Distribution 13.7 Width Platelet Count 269 Mean Platelet Volume 11.0 H Immature Granulocytes 1.200 H % Neutrophils % 80.9 H Lymphocytes % 9.5 L Monocytes % 7.1 Eosinophils % 0.7 Basophils % 0.6 Nucleated Red Blood 0.0 Cells % Immature Granulocytes 0.110 H # Neutrophils # 7.3 Lymphocytes # 0.9 Monocytes # 0.6 Eosinophils # 0.1 Basophils # 0.1 Nucleated Red Blood 0.0 Cells # Sodium Level 142 Potassium Level 3.6 Chloride Level 107 Carbon Dioxide Level 29 Anion Gap 6 Blood Urea Nitrogen 52 H Creatinine 1.54 H Est Glomerular Filtrat Rate mL/min Glucose Level 61 #L Calcium Level 8.8 Medications Medication Current Medications IV Flush (NS 3 ml) 3 ml PER PROTOCOL IV ; Start 02/01/19 at 05:00 Ondansetron HCl (Zofran Inj) 4 mg Q6H PRN IV NAUSEA/VOMITING; Start 02/01/19 at 05:00 Nitroglycerin (Nitroglycerin (Sl Tab) 0.4 Mg) 1 tab Q5M PRN SL .CHEST PAIN; Start 02/01/19 at 05:00 Acetaminophen (Tylenol Tab) 650 mg Q6H PRN PO .PAIN 1-3 OR TEMP Last administered on 02/03/19at 23:12; Admin Dose 650 MG; Start 02/01/19 at 05:00 Albuterol/ Ipratropium (Duoneb) 3 ml Q2H RESP THERAPY PRN HHN SHORTNESS OF BREATH Last administered on 02/02/19at 04:30; Admin Dose 3 ML; Start 02/01/19 at 05:00 Diagnostic Test (Pha) (Accu-Chek) 1 ea 02 XX ; Start 02/02/19 at 02:00 Insulin Glargine (Lantus) 10 units DAILY@2000 SC Last administered on 02/03/19 21:47; Admin Dose 10 UNITS; Start 02/01/19 at 20:00 Ferrous Sulfate (Ferrous Sulfate (Ec)) 325 mg BID PO Last administered on 02/04/19 08:54; Admin Dose 325 MG; Start 02/01/19 at 09:00 Hydrocodone Bit/ Homatropine Methylb (Hycodan Liquid) 5 ml DAILY PRN PO COUGH; Start 02/01/19 at 05:00 Levothyroxine Sodium (Synthroid) 75 mcg BEFORE BREAKFAST PO Last administered on 02/04/19 05:05; Admin Dose 75 MCG; Start 02/01/19 at 07:00 Lubiprostone (Amitiza) 24 mcg WITH BREAKFAST DINNE PO Last administered on 02/04/19 08:52; Admin Dose 24 MCG; Start 02/01/19 at 08:00 Meclizine HCl (Antivert) 25 mg TID PO Last administered on 02/03/19 10:47; Admin Dose 25 MG; Start 02/01/19 at 09:00 Polyethylene Glycol (Miralax) 17 gm DAILY PO Last administered on 02/04/19 08:52; Admin Dose 17 GM; Start 02/01/19 at 09:00 Sotalol HCl (Betapace) 40 mg BID PO Last administered on 02/04/19 08:53; Admin Dose 40 MG; Start 02/01/19 at 09:00 Pantoprazole (Protonix Tab) 40 mg DAILY@06 PO Last administered on 02/04/19 05:05; Admin Dose 40 MG; Start 02/01/19 at 06:00 Miscellaneous Information 1 ea NOTE XX ; Start 02/01/19 at 05:30 Glucose (Glutose) 15 gm Q15M PRN PO DECREASED GLUCOSE; Start 02/01/19 at 05:30 Glucose (Glutose) 22.5 gm Q15M PRN PO DECREASED GLUCOSE; Start 02/01/19 at 05:30 Dextrose (D50w Syringe) 25 ml Q15M PRN IV DECREASED GLUCOSE Last administered on 02/04/19at 06:36; Admin Dose 25 ML; Start 02/01/19 at 05:30 Dextrose (D50w Syringe) 50 ml Q15M PRN IV DECREASED GLUCOSE; Start 02/01/19 at 05:30 Glucagon (Glucagen) 1 mg Q15M PRN IM DECREASED GLUCOSE; Start 02/01/19 at 05:30 Glucose (Glutose) 15 gm Q15M PRN BUCCAL DECREASED GLUCOSE; Start 02/01/19 at 05:30 Docusate Sodium (Colace Liquid Cup) 100 mg DAILY PO Last administered on 02/04/19 08:52; Admin Dose 100 MG; Start 02/01/19 at 13:30 Patient Own Medication 1 ea HS BOTH EYES Last administered on 02/03/19 21:20; Admin Dose 1 EA; Start 02/01/19 at 21:00 Patient Own Medication 1 ea BID BOTH EYES Last administered on 02/03/19 21:20; Admin Dose 1 EA; Start 02/01/19 at 21:00 Apixaban (Eliquis) 2.5 mg BID PO Last administered on 02/04/19 08:52; Admin Dose 2.5 MG; Start 02/01/19 at 21:00 Benzonatate (Tessalon) 100 mg TID PRN PO COUGH Last administered on 02/02/19 09:49; Admin Dose 100 MG; Start 02/02/19 at 02:30 Piperacillin Sod/ Tazobactam Sod 100 ml @ 25 mls/hr Q8 IVPB Last administered on 02/04/19 05:05; Admin Dose 25 MLS/HR; Start 02/02/19 at 09:01 Vancomycin HCl (Vanco Iv Per Pharmacy) VANCOMYCIN PER PHARMACY PER PROTOCOL XX ; Start 02/02/19 at 06:30 Eye Lubricant (Refresh Plus) 1 drop Q4H PRN BOTH EYES .DRY EYES; Start 02/02/19 at 10:00 Allopurinol (Zyloprim) 100 mg DAILY PO Last administered on 02/04/19 08:52; Admin Dose 100 MG; Start 02/02/19 at 10:30 Linagliptin (Tradjenta) 5 mg DAILY PO Last administered on 02/04/19 08:54; Admin Dose 5 MG; Start 02/02/19 at 10:30 Gentamicin Sulfate (Gentamicin 0.3% Oph Drop) 1 drop Q4 RIGHT EYE Last ad ministered on 02/04/19 08:54; Admin Dose 1 DROP; Start 02/02/19 at 13:00 Albuterol/ Ipratropium (Duoneb) 3 ml Q4H RESP THERAPY HHN Last administered on 02/04/19at 09:32; Admin Dose 3 ML; Start 02/02/19 at 13:00 Vancomycin/Sodium Chloride 250 ml @ 125 mls/hr Q48H IVPB ; Start 02/04/19 at 09:00 Dextrose/Sodium Chloride 500 ml @ 40 mls/hr [id number] IV Last administered on 02/04/19at 01:30; Admin Dose 40 MLS/HR; Start 02/03/19 at 13:00 Insulin Aspart (Novolog Insulin Pen) NOVOLOG *MILD* ALGORITHM AC MEALS AND BEDTIME SC Last administered on 02/03/19at 21:47; Admin Dose 1 UNIT; Start 02/03/19 at 17:30 JESSE CABEZAS MD Feb 04, 2019 10:19
[2019-02-04] MEDS: MECLIZINE 25 MG TAB PO SCH ×3 (10:33→20:18)
[2019-02-04] MEDS: VANCOMYCIN 750 MG (PMX) 250 ML IVPB SCH (10:40)
--- NOTE | 2019-02-04 12:48 | CONS ---
Assessment/Plan Assessment/Plan Hospital Course (Demo Recall) IMP: 1.AF-being paced at this time on eliquis 2.PPM-no signs of dysfunction at this time 3.HTN 4.DM 5.sob-likley PNA with possible component of CHF-diastolic EF 60% by echo this admit 6. Hypothyroid Recc: -Tele -serial ecg's -Continue sotalol asa tolerated only -Continue abx's and f/u cx data -Follow volume status clsoely and will start gentle lasix diuresis -Continue bronchodilators Consultation Date/Type/Reason Admit Date/Time Feb 02, 2019 at 10:08 Initial Consult Date 02/02/19 Type of Consult Cardiology Reason for Consultation PPM Requesting Provider: ANDREA KHAN NP Date/Time of Note DATE: 02/04/19 TIME: 12:46 Exam/Review of Systems Vital Signs Vitals Vital Signs Date Temp Pulse Resp B/P (MAP) Pulse Ox O2 O2 Flow FiO2 Time Delivery Rate 02/04/19 98.1 61 19 116/56 97 11:47 (76) 02/04/19 Nasal 2.0 09:45 Cannula 02/02/19 30 04:35 Intake and Output 02/03/19 02/03/19 02/04/19 1515:00 23:00 07:00 IntakeIntake Total 540 ml 400 ml OutputOutput Total 500 ml 350 ml BalanceBalance 40 ml 50 ml Exam Exam Review of Systems: CONSTITUTIONAL: No fevers, chills. PULMONARY: No sob CARDIOVASCULAR: No chest pain/palpitations GASTROINTESTINAL: No nausea/vomiting. GENITOURINARY: No hematuria/dysuria. MUSCULOSKELETAL: No myagias/arthalgias. PSYCHIATRIC: The patient denies depression. NEUROLOGIC: No weakness Constitutional: alert Psych: no complaints Head: normocephalic ENMT: mucosa pink and moist Neck: supple, jvd (9 cm water) Respiratory: diminished breath sounds (at bases/B) Cardiovascular: regular rate and rhythm Gastrointestinal: soft, non-tender Musculoskeletal: muscle weakness (generalized) Extremities: edema (none) Neurological: other (No focal deficits) Labs Result Diagram: 02/04/19 0537 02/04/19 0537 Results 24hrs Laboratory Tests Test 02/03/19 12:51 02/03/19 17:54 02/03/19 21:07 02/04/19 02:43 Lab Scanned Report REFERENCE LAB Bedside Glucose 116 189 86 Test 02/04/19 05:37 02/04/19 06:32 02/04/19 06:55 02/04/19 12:14 White Blood Count 9.0 Red Blood Count 3.13 L Hemoglobin 9.9 L Hematocrit 31.5 L Mean Corpuscular 100.6 Volume Mean Corpuscular 31.6 Hemoglobin Mean Corpuscular 31.4 L Hemoglobin Concent Red Cell Distribution 13.7 Width Platelet Count 269 Mean Platelet Volume 11.0 H Immature Granulocytes 1.200 H % Neutrophils % 80.9 H Lymphocytes % 9.5 L Monocytes % 7.1 Eosinophils % 0.7 Basophils % 0.6 Nucleated Red Blood 0.0 Cells % Immature Granulocytes 0.110 H # Neutrophils # 7.3 Lymphocytes # 0.9 Monocytes # 0.6 Eosinophils # 0.1 Basophils # 0.1 Nucleated Red Blood 0.0 Cells # Sodium Level 142 Potassium Level 3.6 Chloride Level 107 Carbon Dioxide Level 29 Anion Gap 6 Blood Urea Nitrogen 52 H Creatinine 1.54 H Est Glomerular Filtrat Rate mL/min Glucose Level 61 #L Calcium Level 8.8 Bedside Glucose 67 L 219 157 Medications Medications Current Medications IV Flush (NS 3 ml) 3 ml PER PROTOCOL IV ; Start 02/01/19 at 05:00 Ondansetron HCl (Zofran Inj) 4 mg Q6H PRN IV NAUSEA/VOMITING; Start 02/01/19 at 05:00 Nitroglycerin (Nitroglycerin (Sl Tab) 0.4 Mg) 1 tab Q5M PRN SL .CHEST PAIN; Start 02/01/19 at 05:00 Acetaminophen (Tylenol Tab) 650 mg Q6H PRN PO .PAIN 1-3 OR TEMP Last administered on 02/03/19at 23:12; Admin Dose 650 MG; Start 02/01/19 at 05:00 Albuterol/ Ipratropium (Duoneb) 3 ml Q2H RESP THERAPY PRN HHN SHORTNESS OF BREATH Last administered on 02/02/19at 04:30; Admin Dose 3 ML; Start 02/01/19 at 05:00 Diagnostic Test (Pha) (Accu-Chek) 1 ea 02 XX ; Start 02/02/19 at 02:00 Insulin Glargine (Lantus) 10 units DAILY@2000 SC Last administered on 02/03/19 21:47; Admin Dose 10 UNITS; Start 02/01/19 at 20:00 Ferrous Sulfate (Ferrous Sulfate (Ec)) 325 mg BID PO Last administered on 02/04/19 08:54; Admin Dose 325 MG; Start 02/01/19 at 09:00 Hydrocodone Bit/ Homatropine Methylb (Hycodan Liquid) 5 ml DAILY PRN PO COUGH; Start 02/01/19 at 05:00 Levothyroxine Sodium (Synthroid) 75 mcg BEFORE BREAKFAST PO Last administered on 02/04/19 05:05; Admin Dose 75 MCG; Start 02/01/19 at 07:00 Lubiprostone (Amitiza) 24 mcg WITH BREAKFAST DINNE PO Last administered on 02/04/19 08:52; Admin Dose 24 MCG; Start 02/01/19 at 08:00 Meclizine HCl (Antivert) 25 mg TID PO Last administered on 02/04/19 10:33; Admin Dose 25 MG; Start 02/01/19 at 09:00 Polyethylene Glycol (Miralax) 17 gm DAILY PO Last administered on 02/04/19 08:52; Admin Dose 17 GM; Start 02/01/19 at 09:00 Sotalol HCl (Betapace) 40 mg BID PO Last administered on 02/04/19 08:53; Admin Dose 40 MG; Start 02/01/19 at 09:00 Pantoprazole (Protonix Tab) 40 mg DAILY@06 PO Last administered on 02/04/19 05:05; Admin Dose 40 MG; Start 02/01/19 at 06:00 Miscellaneous Information 1 ea NOTE XX ; Start 02/01/19 at 05:30 Glucose (Glutose) 15 gm Q15M PRN PO DECREASED GLUCOSE; Start 02/01/19 at 05:30 Glucose (Glutose) 22.5 gm Q15M PRN PO DECREASED GLUCOSE; Start 02/01/19 at 05:30 Dextrose (D50w Syringe) 25 ml Q15M PRN IV DECREASED GLUCOSE Last administered on 02/04/19 06:36; Admin Dose 25 ML; Start 02/01/19 at 05:30 Dextrose (D50w Syringe) 50 ml Q15M PRN IV DECREASED GLUCOSE; Start 02/01/19 at 05:30 Glucagon (Glucagen) 1 mg Q15M PRN IM DECREASED GLUCOSE; Start 02/01/19 at 05:30 Glucose (Glutose) 15 gm Q15M PRN BUCCAL DECREASED GLUCOSE; Start 02/01/19 at 05:30 Docusate Sodium (Colace Liquid Cup) 100 mg DAILY PO Last administered on 02/04/19 08:52; Admin Dose 100 MG; Start 02/01/19 at 13:30 Patient Own Medication 1 ea HS BOTH EYES Last administered on 02/03/19 21:20; Admin Dose 1 EA; Start 02/01/19 at 21:00 Patient Own Medication 1 ea BID BOTH EYES Last administered on 02/03/19 21:20; Admin Dose 1 EA; Start 02/01/19 at 21:00 Apixaban (Eliquis) 2.5 mg BID PO Last administered on 02/04/19 08:52; Admin Dose 2.5 MG; Start 02/01/19 at 21:00 Benzonatate (Tessalon) 100 mg TID PRN PO COUGH Last administered on 02/02/19 09:49; Admin Dose 100 MG; Start 02/02/19 at 02:30 Piperacillin Sod/ Tazobactam Sod 100 ml @ 25 mls/hr Q8 IVPB Last administered on 02/04/19 05:05; Admin Dose 25 MLS/HR; Start 02/02/19 at 09:01 Vancomycin HCl (Vanco Iv Per Pharmacy) VANCOMYCIN PER PHARMACY PER PROTOCOL XX ; Start 02/02/19 at 06:30 Eye Lubricant (Refresh Plus) 1 drop Q4H PRN BOTH EYES .DRY EYES; Start 02/02/19 at 10:00 Allopurinol (Zyloprim) 100 mg DAILY PO Last administered on 02/04/19 08:52; Admin Dose 100 MG; Start 02/02/19 at 10:30 Linagliptin (Tradjenta) 5 mg DAILY PO Last administered on 02/04/19 08:54; Ad min Dose 5 MG; Start 02/02/19 at 10:30 Gentamicin Sulfate (Gentamicin 0.3% Oph Drop) 1 drop Q4 RIGHT EYE Last administered on 02/04/19 08:54; Admin Dose 1 DROP; Start 02/02/19 at 13:00 Albuterol/ Ipratropium (Duoneb) 3 ml Q4H RESP THERAPY HHN Last administered on 02/04/19 09:32; Admin Dose 3 ML; Start 02/02/19 at 13:00 Vancomycin/Sodium Chloride 250 ml @ 125 mls/hr Q48H IVPB Last administered on 02/04/19 10:40; Admin Dose 125 MLS/HR; Start 02/04/19 at 09:00 Dextrose/Sodium Chloride 500 ml @ 40 mls/hr [id number] IV Last administered on 02/04/19 01:30; Admin Dose 40 MLS/HR; Start 02/03/19 at 13:00 Insulin Aspart (Novolog Insulin Pen) NOVOLOG *MILD* ALGORITHM AC MEALS AND BEDTIME SC Last administered on 02/04/19 12:23; Admin Dose 1 UNIT; Start 02/03/19 at 17:30 SHAWANDA LUGO Feb 04, 2019 12:48
[2019-02-04] MEDS ORDERED: POTASSIUM CHLORIDE (SR) 20 MEQ TAB PO STA (14:59)
--- NOTE | 2019-02-04 15:07 | PN ---
Date/Time of Note Date/Time of Note DATE: 02/04/19 TIME: 14:58 Assessment/Plan VTE Prophylaxis Risk score (from Ns)>0 risk: 6 SCD applied (from [facility] [place]): Yes SCD contraindicated: other Pharmacological prophylaxis: apixaban Lines/Catheters IV C[facility]ter Type (from [facility]): [place] Urinary Cath still in place: No Assessment/Plan Assessment/Plan 1. Community acquired pneumonia, improving on antibiotics(zosyn/vanco) 2. Chronic atrial fibrillation, pacing rhythm, on eliquis 3. Hypothyroidism, on synthroid 4. HTN, controlled 5. Renal failure, acute versus chronic, follow up with BMP 6. Gout, 7. Macrocytic anemia, chronic 8. s/p pacemaker 9. DM, continue treatment Result Diagram: 02/04/1937 02/04/1937 Results 24hrs Laboratory Tests Test 02/03/19 17:54 02/03/19 21:07 02/04/19 02:43 02/04/19 05:37 Bedside Glucose 116 189 86 White Blood Count 9.0 Red Blood Count 3.13 L Hemoglobin 9.9 L Hematocrit 31.5 L Mean Corpuscular Volume 100.6 Mean Corpuscular 31.6 Hemoglobin Mean Corpuscular 31.4 L Hemoglobin Concent Red Cell Distribution 13.7 Width Platelet Count 269 Mean Platelet Volume 11.0 H Immature Granulocytes % 1.200 H Neutrophils % 80.9 H Lymphocytes % 9.5 L Monocytes % 7.1 Eosinophils % 0.7 Basophils % 0.6 Nucleated Red Blood 0.0 Cells % Immature Granulocytes # 0.110 H Neutrophils # 7.3 Lymphocytes # 0.9 Monocytes # 0.6 Eosinophils # 0.1 Basophils # 0.1 Nucleated Red Blood 0.0 Cells # Sodium Level 142 Potassium Level 3.6 Chloride Level 107 Carbon Dioxide Level 29 Anion Gap 6 Blood Urea Nitrogen 52 H Creatinine 1.54 H Est Glomerular Filtrat Rate mL/min Glucose Level 61 #L Calcium Level 8.8 Test 02/04/19 06:32 02/04/19 06:55 02/04/19 12:14 Bedside Glucose 67 L 219 157 Subjective 24 Hr Interval Summary Free Text/Dictation cough with less shortness of breath Exam/Review of Systems Exam Vitals Vital Signs Date Temp Pulse Resp B/P (MAP) Pulse Ox O2 O2 Flow FiO2 Time Delivery Rate 02/04/19 68 18 100 Nasal 2.0 13:22 Cannula 02/04/19 98.1 116/56 11:47 (76) 02/02/19 30 04:35 Intake and Output 02/03/19 02/03/19 02/04/19 1414:59 22:59 06:59 IntakeIntake Total 540 ml 400 ml OutputOutput Total 500 ml 350 ml BalanceBalance 40 ml 50 ml Constitutional: alert, oriented, well developed Head: normocephalic, atraumatic Eyes: nl conjunctiva, EOMI, nl lids, PERRL ENMT: nl external ears & nose, nl lips & teeth, nl nasal mucosa & septum Neck: supple, non-tender Respiratory: crackles/rales Cardiovascular: regular rate and rhythm, nl pulses Gastrointestinal: soft, nl liver, spleen, non-tender Musculoskeletal: nl extremities to inspection Extremities: normal pulses; No calf tenderness, No cyanosis, No clubbing, No edema, No pitting pedal edema, No palpable cord, No tenderness, No other Neurological: RETREAD OPERATOR II-XII intact, nl mental status, nl speech, nl strength Results Results 24hrs Laboratory Tests Test 02/03/19 17:54 02/03/19 21:07 02/04/19 02:43 02/04/19 05:37 Bedside Glucose 116 189 86 White Blood Count 9.0 Red Blood Count 3.13 L Hemoglobin 9.9 L Hematocrit 31.5 L Mean Corpuscular Volume 100.6 Mean Corpuscular 31.6 Hemoglobin Mean Corpuscular 31.4 L Hemoglobin Concent Red Cell Distribution 13.7 Width Platelet Count 269 Mean Platelet Volume 11.0 H Immature Granulocytes % 1.200 H Neutrophils % 80.9 H Lymphocytes % 9.5 L Monocytes % 7.1 Eosinophils % 0.7 Basophils % 0.6 Nucleated Red Blood 0.0 Cells % Immature Granulocytes # 0.110 H Neutrophils # 7.3 Lymphocytes # 0.9 Monocytes # 0.6 Eosinophils # 0.1 Basophils # 0.1 Nucleated Red Blood 0.0 Cells # Sodium Level 142 Potassium Level 3.6 Chloride Level 107 Carbon Dioxide Level 29 Anion Gap 6 Blood Urea Nitrogen 52 H Creatinine 1.54 H Est Glomerular Filtrat Rate mL/min Glucose Level 61 #L Calcium Level 8.8 Test 02/04/19 06:32 02/04/19 06:55 02/04/19 12:14 Bedside Glucose 67 L 219 157 Medications Medication Current Medications IV Flush (NS 3 ml) 3 ml PER PROTOCOL IV ; Start 02/01/19 at 05:00 Ondansetron HCl (Zofran Inj) 4 mg Q6H PRN IV NAUSEA/VOMITING; Start 02/01/19 at 05:00 Nitroglycerin (Nitroglycerin (Sl Tab) 0.4 Mg) 1 tab Q5M PRN SL .CHEST PAIN; Start 02/01/19 at 05:00 Acetaminophen (Tylenol Tab) 650 mg Q6H PRN PO .PAIN 1-3 OR TEMP Last administered on 02/03/19at 23:12; Admin Dose 650 MG; Start 02/01/19 at 05:00 Albuterol/ Ipratropium (Duoneb) 3 ml Q2H RESP THERAPY PRN HHN SHORTNESS OF BREATH Last administered on 02/02/19 04:30; Admin Dose 3 ML; Start 02/01/19 at 05:00 Diagnostic Test (Pha) (Accu-Chek) 1 ea 02 XX ; Start 02/02/19 at 02:00 Insulin Glargine (Lantus) 10 units DAILY@2000 SC Last administered on 02/03/19at 21:47; Admin Dose 10 UNITS; Start 02/01/19 at 20:00 Ferrous Sulfate (Ferrous Sulfate (Ec)) 325 mg BID PO Last administered on 02/04/19at 08:54; Admin Dose 325 MG; Start 02/01/19 at 09:00 Hydrocodone Bit/ Homatropine Methylb (Hycodan Liquid) 5 ml DAILY PRN PO COUGH; Start 02/01/19 at 05:00 Levothyroxine Sodium (Synthroid) 75 mcg BEFORE BREAKFAST PO Last administered on 02/04/19 05:05; Admin Dose 75 MCG; Start 02/01/19 at 07:00 Lubiprostone (Amitiza) 24 mcg WITH BREAKFAST DINNE PO Last administered on 02/04/19 08:52; Admin Dose 24 MCG; Start 02/01/19 at 08:00 Meclizine HCl (Antivert) 25 mg TID PO Last administered on 02/04/19at 10:33; Admin Dose 25 MG; Start 02/01/19 at 09:00 Polyethylene Glycol (Miralax) 17 gm DAILY PO Last administered on 02/04/19 08:52; Admin Dose 17 GM; Start 02/01/19 at 09:00 Sotalol HCl (Betapace) 40 mg BID PO Last administered on 02/04/19 08:53; Admin Dose 40 MG; Start 02/01/19 at 09:00 Pantoprazole (Protonix Tab) 40 mg DAILY@06 PO Last administered on 02/04/19 05:05; Admin Dose 40 MG; Start 02/01/19 at 06:00 Miscellaneous Information 1 ea NOTE XX ; Start 02/01/19 at 05:30 Glucose (Glutose) 15 gm Q15M PRN PO DECREASED GLUCOSE; Start 02/01/19 at 05:30 Glucose (Glutose) 22.5 gm Q15M PRN PO DECREASED GLUCOSE; Start 02/01/19 at 05:30 Dextrose (D50w Syringe) 25 ml Q15M PRN IV DECREASED GLUCOSE Last administered on 02/04/19 06:36; Admin Dose 25 ML; Start 02/01/19 at 05:30 Dextrose (D50w Syringe) 50 ml Q15M PRN IV DECREASED GLUCOSE; Start 02/01/19 at 05:30 Glucagon (Glucagen) 1 mg Q15M PRN IM DECREASED GLUCOSE; Start 02/01/19 at 05:30 Glucose (Glutose) 15 gm Q15M PRN BUCCAL DECREASED GLUCOSE; Start 02/01/19 at 05:30 Docusate Sodium (Colace Liquid Cup) 100 mg DAILY PO Last administered on 02/04/19 08:52; Admin Dose 100 MG; Start 02/01/19 at 13:30 Patient Own Medication 1 ea HS BOTH EYES Last administered on 02/03/19 21:20; Admin Dose 1 EA; Start 02/01/19 at 21:00 Patient Own Medication 1 ea BID BOTH EYES Last administered on 02/03/19 21:20; Admin Dose 1 EA; Start 02/01/19 at 21:00 Apixaban (Eliquis) 2.5 mg BID PO Last administered on 02/04/19 08:52; Admin D ose 2.5 MG; Start 02/01/19 at 21:00 Benzonatate (Tessalon) 100 mg TID PRN PO COUGH Last administered on 02/02/19 09:49; Admin Dose 100 MG; Start 02/02/19 at 02:30 Piperacillin Sod/ Tazobactam Sod 100 ml @ 25 mls/hr Q8 IVPB Last administered on 02/04/19 13:25; Admin Dose 25 MLS/HR; Start 02/02/19 at 09:01 Vancomycin HCl (Vanco Iv Per Pharmacy) VANCOMYCIN PER PHARMACY PER PROTOCOL XX ; Start 02/02/19 at 06:30 Eye Lubricant (Refresh Plus) 1 drop Q4H PRN BOTH EYES .DRY EYES; Start 02/02/19 at 10:00 Allopurinol (Zyloprim) 100 mg DAILY PO Last administered on 02/04/19 08:52; Admin Dose 100 MG; Start 02/02/19 at 10:30 Linagliptin (Tradjenta) 5 mg DAILY PO Last administered on 02/04/19 08:54; Admin Dose 5 MG; Start 02/02/19 at 10:30 Gentamicin Sulfate (Gentamicin 0.3% Oph Drop) 1 drop Q4 RIGHT EYE Last administered on 02/04/19 13:26; Admin Dose 1 DROP; Start 02/02/19 at 13:00 Albuterol/ Ipratropium (Duoneb) 3 ml Q4H RESP THERAPY HHN Last administered on 02/04/19 13:12; Admin Dose 3 ML; Start 02/02/19 at 13:00 Vancomycin/Sodium Chloride 250 ml @ 125 mls/hr Q48H IVPB Last administered on 02/04/19 10:40; Admin Dose 125 MLS/HR; Start 02/04/19 at 09:00 Dextrose/Sodium Chloride 500 ml @ 40 mls/hr [id number] IV Last administered on 02/04/19 01:30; Admin Dose 40 MLS/HR; Start 02/03/19 at 13:00 Insulin Aspart (Novolog Insulin Pen) NOVOLOG *MILD* ALGORITHM AC MEALS AND BEDTIME SC Last administered on 02/04/19 12:23; Admin Dose 1 UNIT; Start 02/03/19 at 17:30 Furosemide (Lasix) 20 mg DAILY IV ; Start 02/05/19 at 09:00 CHARMAINE MENCHACA MD Feb 04, 2019 15:07
[2019-02-04] MEDS ORDERED: POTASSIUM CHLORIDE 100 ML IVPB ONE (16:30)
[2019-02-04] MEDS: INSULIN GLARGINE [LANTus] (100 UNITS/ML) SYG SC SCH (20:49)
[2019-02-04] MEDS: HYDROCODONE/HOMATROPINE 5ML CUP PO PRN (21:20)
[2019-02-05] VITALS (10 sets, daily range): BP systolic 101–148; BP diastolic 44–70; PULSE 6–70; RESP 18–20
[2019-02-05] MEDS: GENTAMICIN 0.3% 5 ML OPH RIGHT EYE SCH ×6 (01:00→21:00)
[2019-02-05] MEDS: ALBUTEROL/IPRATROPIUM (NEB) 3 ML AMP HHN SCH ×6 (01:35→20:31)
[2019-02-05] MEDS: ACCU-CHEK XX SCH (02:00)
[2019-02-05] MEDS: DEXTROSE 5%-0.45% NACL 500 ML IV SCH ×2 (02:07→21:38)
[2019-02-05] MEDS: PIPER-TAZO 3.375 GM IV (PMX) 100 ML IVPB SCH ×3 (05:32→21:48)
[2019-02-05] MEDS: LEVOTHYROXINE 75 MCG TAB PO SCH (05:34)
[2019-02-05] MEDS: PANTOPRAZOLE (EC) 40 MG TAB PO SCH (05:35)
[2019-02-05] MEDS: INSULIN ASPART [NOVOLOG] 3 ML PEN SC SCH ×4 (07:00→21:00)
--- NOTE | 2019-02-05 07:31 | CONS ---
Assessment/Plan Assessment/Plan Assessment/Plan (Daily) Chest x-ray was reviewed from yesterday which is showing marked improvement in bibasilar pneumonia. Assessment recommendations; 1. Patient admitted with hypoxemia With bilateral lower lobe community acquired pneumonia with significant clinical and radiological improvement. 2. Acute encephalopathy with interval resolution. 3. Chronic renal insufficiency. 4. Diabetes. 5. Chronic atrial fibrillation. 6. Mild CHF. 7. History of hypertension. 8. Mild anemia. Continue on supportive care. Patient responding well to current treatment regimen. Consultation Date/Type/Reason Admit Date/Time Feb 02, 2019 at 10:08 Initial Consult Date 02/02/19 Type of Consult Pulmonary Pulmonary consult requested for evaluation of hypoxemia. Patient is a 88-year-old lady who was admitted to the hospital brought in from home with complaints of shortness of breath. Upon evaluation patient be diagnosed with pneumonia as well as possible CHF. Patient has been started on appropriate antimicrobial regimen as well as intravenous Lasix. The patient is quite lethargic and according to the patient's daughter who was present in the room the patient has been regular for the last 2 months and was recently admitted to [facility] where she was admitted couple of weeks ago patient however did not appear to be in any distress.. History was obtained from medical records as well as from patient's daughter who was present in the room. Past medical history; 1. Chronic atrial fibrillation 2. Diabetes. 3. Chronic renal insufficiency. 4. Hypothyroidism. 5. Chronic anemia. 6. Questionable CHF. Medications; reviewed. Allergies; none. Social history; noncontributory. Family history; patient is a , has supportive family. Lives with her daughter. 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 Review of system; unable to be obtained. General exam; elderly female, awake, somewhat responsive currently no distress. Requesting Provider: ANDREA KHAN NP Date/Time of Note DATE: 02/05/19 TIME: 07:29 24 HR Interval Summary Free Text/Dictation Patient's condition is stable. Remains awake and alert. Has remained hemodynamically stable. General exam; elderly woman, awake alert, currently in no distress. Exam/Review of Systems Exam Vitals Vital Signs Date Temp Pulse Resp B/P (MAP) Pulse Ox O2 O2 Flow FiO2 Time Delivery Rate 02/05/19 98.2 70 18 133/62 93 07:23 (85) 02/05/19 Nasal 2.0 04:46 Cannula 02/02/19 30 04:35 Intake and Output 02/04/19 02/04/19 02/05/19 1515:00 23:00 07:00 IntakeIntake Total 350 ml 500 ml 350 ml OutputOutput Total 300 ml BalanceBalance 350 ml 200 ml 350 ml Exam H EENT exam; supple neck, no JVD. No lymphadenopathy. Midline trachea. No thyromegaly. Patient does have carious teeth. Pupils are small bilaterally. Chest exam; clear to auscultation. S1-S2 audible, no murmurs. Irregular rhythm. Abdomen exam; soft, nontender. No organomegaly. Bowel sounds audible. Extremity exam; no edema clubbing. EYE PHYSICIAN exam; no focal deficit. Results Result Diagram: 02/05/19 0557 02/05/19 0557 Results 24hrs Laboratory Tests Test 02/04/19 12:14 02/04/19 17:10 02/04/19 20:15 02/05/19 02:37 Bedside Glucose 157 161 184 126 Test 02/05/19 05:49 02/05/19 05:57 Bedside Glucose 75 White Blood Count 7.0 # Red Blood Count 3.25 L Hemoglobin 10.3 L Hematocrit 32.5 L Mean Corpuscular Volume 100.0 Mean Corpuscular 31.7 Hemoglobin Mean Corpuscular 31.7 L Hemoglobin Concent Red Cell Distribution 13.6 Width Platelet Count 270 Mean Platelet Volume 10.8 H Immature Granulocytes % 2.300 H Neutrophils % 75.9 Lymphocytes % 12.4 L Monocytes % 7.7 Eosinophils % 1.0 Basophils % 0.7 Nucleated Red Blood 0.0 Cells % Immature Granulocytes # 0.160 H Neutrophils # 5.3 Lymphocytes # 0.9 Monocytes # 0.5 Eosinophils # 0.1 Basophils # 0.1 Nucleated Red Blood 0.0 Cells # Sodium Level 146 H Potassium Level 3.6 Chloride Level 108 Carbon Dioxide Level 30 Anion Gap 8 Blood Urea Nitrogen 43 H Creatinine 1.63 H Est Glomerular Filtrat Rate mL/min Glucose Level 65 L Calcium Level 8.9 Medications Medication Current Medications IV Flush (NS 3 ml) 3 ml PER PROTOCOL IV ; Start 02/01/19 at 05:00 Ondansetron HCl (Zofran Inj) 4 mg Q6H PRN IV NAUSEA/VOMITING; Start 02/01/19 at 05:00 Nitroglycerin (Nitroglycerin (Sl Tab) 0.4 Mg) 1 tab Q5M PRN SL .CHEST PAIN; Start 02/01/19 at 05:00 Acetaminophen (Tylenol Tab) 650 mg Q6H PRN PO .PAIN 1-3 OR TEMP Last administered on 02/03/19 23:12; Admin Dose 650 MG; Start 02/01/19 at 05:00 Albuterol/ Ipratropium (Duoneb) 3 ml Q2H RESP THERAPY PRN HHN SHORTNESS OF BREATH Last administered on 02/02/19 04:30; Admin Dose 3 ML; Start 02/01/19 at 05:00 Diagnostic Test (Pha) (Accu-Chek) 1 ea 02 XX ; Start 02/02/19 at 02:00 Insulin Glargine (Lantus) 10 units DAILY@2000 SC Last administered on 02/04/19 20:49; Admin Dose 10 UNITS; Start 02/01/19 at 20:00 Ferrous Sulfate (Ferrous Sulfate (Ec)) 325 mg BID PO Last administered on 02/04/19 20:17; Admin Dose 325 MG; Start 02/01/19 at 09:00 Hydrocodone Bit/ Homatropine Methylb (Hycodan Liquid) 5 ml DAILY PRN PO COUGH Last administered on 02/04/19 21:20; Admin Dose 5 ML; Start 02/01/19 at 05:00 Levothyroxine Sodium (Synthroid) 75 mcg BEFORE BREAKFAST PO Last administered on 02/05/19 05:34; Admin Dose 75 MCG; Start 02/01/19 at 07:00 Lubiprostone (Amitiza) 24 mcg WITH BREAKFAST DINNE PO Last administered on 02/04/19 18:49; Admin Dose 24 MCG; Start 02/01/19 at 08:00 Meclizine HCl (Antivert) 25 mg TID PO Last administered on 02/04/19 20:18; Admin Dose 25 MG; Start 02/01/19 at 09:00 Polyethylene Glycol (Miralax) 17 gm DAILY PO Last administered on 02/04/19 08:52; Admin Dose 17 GM; Start 02/01/19 at 09:00 Sotalol HCl (Betapace) 40 mg BID PO Last administered on 02/04/19 20:18; Admin Dose 40 MG; Start 02/01/19 at 09:00 Pantoprazole (Protonix Tab) 40 mg DAILY@06 PO Last administered on 02/05/19 05:35; Admin Dose 40 MG; Start 02/01/19 at 06:00 Miscellaneous Information 1 ea NOTE XX ; Start 02/01/19 at 05:30 Glucose (Glutose) 15 gm Q15M PRN PO DECREASED GLUCOSE; Start 02/01/19 at 05:30 Glucose (Glutose) 22.5 gm Q15M PRN PO DECREASED GLUCOSE; Start 02/01/19 at 05:30 Dextrose (D50w Syringe) 25 ml Q15M PRN IV DECREASED GLUCOSE Last administered on 02/04/19 06:36; Admin Dose 25 ML; Start 02/01/19 at 05:30 Dextrose (D50w Syringe) 50 ml Q15M PRN IV DECREASED GLUCOSE; Start 02/01/19 at 05:30 Glucagon (Glucagen) 1 mg Q15M PRN IM DECREASED GLUCOSE; Start 02/01/19 at 05:30 Glucose (Glutose) 15 gm Q15M PRN BUCCAL DECREASED GLUCOSE; Start 02/01/19 at 05:30 Docusate Sodium (Colace Liquid Cup) 100 mg DAILY PO Last administered on 02/04/19 08:52; Admin Dose 100 MG; Start 02/01/19 at 13:30 Patient Own Medication 1 ea HS BOTH EYES Last administered on 02/04/19 20:19; Admin Dose 1 EA; Start 02/01/19 at 21:00 Patient Own Medication 1 ea BID BOTH EYES Last administered on 02/04/19 20:19; Admin Dose 1 EA; Start 02/01/19 at 21:00 Apixaban (Eliquis) 2.5 mg BID PO Last administered on 02/04/19 20:18; Admin Dose 2.5 MG; Start 02/01/19 at 21:00 Benzonatate (Tessalon) 100 mg TID PRN PO COUGH Last administered on 02/02/19 09:49; Admin Dose 100 MG; Start 02/02/19 at 02:30 Piperacillin Sod/ Tazobactam Sod 100 ml @ 25 mls/hr Q8 IVPB Last administered on 02/05/19 05:32; Admin Dose 25 MLS/HR; Start 02/02/19 at 09:01 Vancomycin HCl (Vanco Iv Per Pharmacy) VANCOMYCIN PER PHARMACY PER PROTOCOL XX ; Start 02/02/19 at 06:30 Eye Lubricant (Refresh Plus) 1 drop Q4H PRN BOTH EYES .DRY EYES; Start 02/02/19 at 10:00 Allopurinol (Zyloprim) 100 mg DAILY PO Last administered on 02/04/19 08:52; Admin Dose 100 MG; Start 02/02/19 at 10:30 Linagliptin (Tradjenta) 5 mg DAILY PO Last administered on 02/04/19 08:54; Admin Dose 5 MG; Start 02/02/19 at 10:30 Gentamicin Sulfate (Gentamicin 0.3% Oph Drop) 1 drop Q4 RIGHT EYE Last administered on 02/05/19 05:35; Admin Dose 1 DROP; Start 02/02/19 at 13:00 Albuterol/ Ipratropium (Duoneb) 3 ml Q4H RESP THERAPY HHN Last administered on 02/05/19 04:46; Admin Dose 3 ML; Start 02/02/19 at 13:00 Vancomycin/Sodium Chloride 250 ml @ 125 mls/hr Q48H IVPB Last administered on 02/04/19 10:40; Admin Dose 125 MLS/HR; Start 02/04/19 at 09:00 Dextrose/Sodium Chloride 500 ml @ 40 mls/hr [id number] IV Last administered on 02/05/19 02:07; Admin Dose 40 MLS/HR; Start 02/03/19 at 13:00 Insulin Aspart (Novolog Insulin Pen) NOVOLOG *MILD* ALGORITHM AC MEALS AND BEDTIME SC Last administered on 02/04/19 20:50; Admin Dose 1 UNIT; Start 02/03/19 at 17:30 Furosemide (Lasix) 20 mg DAILY IV ; Start 02/05/19 at 09:00 DENTON ACHARYA Feb 05, 2019 07:31
[2019-02-05] MEDS: LUBIPROSTONE 24 MCG CAP PO SCH ×2 (08:00→18:00)
[2019-02-05] MEDS: DOCUSATE SODIUM 10 MG/ML (10ML CUP) PO SCH (08:44)
[2019-02-05] MEDS: FERROUS SULFATE (EC) 325 MG TAB PO SCH ×2 (08:46→21:35)
[2019-02-05] MEDS: LINAGLIPTIN 5 MG TABLET PO SCH (08:46)
[2019-02-05] MEDS: SOTALOL 80 MG TAB PO SCH ×2 (08:46→21:34)
[2019-02-05] MEDS: APIXABAN 5 MG TABLET PO SCH ×2 (08:46→21:34)
[2019-02-05] MEDS: POLYETHYLENE GLYCOL 17 GM PACKET PO SCH (08:46)
[2019-02-05] MEDS: ALLOPURINOL 100 MG TAB PO SCH (08:46)
[2019-02-05] MEDS: MECLIZINE 25 MG TAB PO SCH ×3 (08:46→21:36)
[2019-02-05] MEDS: PATIENT'S OWN MEDICATION BOTH EYES SCH ×3 (08:47→21:00)
[2019-02-05] MEDS ORDERED: FUROSEMIDE 20 MG INJ IV SCH (09:00)
--- NOTE | 2019-02-05 12:06 | CONS ---
Assessment/Plan Assessment/Plan Hospital Course (Demo Recall) IMP: 1.AF-being paced at this time on eliquis 2.PPM-no signs of dysfunction at this time 3.HTN 4.DM 5.sob-likley PNA with possible component of CHF-diastolic EF 60% by echo this admit 6. Hypothyroid Recc: -Tele -serial ecg's -Continue sotalol as tolerated onlyand will check QTc with ecg -Continue abx's and f/u cx data -Follow volume status clsoely on gentle lasix diuresis -Continue bronchodilators Consultation Date/Type/Reason Admit Date/Time Feb 02, 2019 at 10:08 Initial Consult Date 02/02/19 Type of Consult Cardiology Reason for Consultation HTN/PPM Requesting Provider: ANDREA KHAN NP Date/Time of Note DATE: 02/05/19 TIME: 12:03 Exam/Review of Systems Vital Signs Vitals Vital Signs Date Temp Pulse Resp B/P (MAP) Pulse Ox O2 O2 Flow FiO2 Time Delivery Rate 02/05/19 98.2 60 19 123/69 100 11:41 (87) 02/05/19 Nasal 2.0 10:44 Cannula 02/02/19 30 04:35 Intake and Output 02/04/19 02/04/19 02/05/19 1515:00 23:00 07:00 IntakeIntake Total 350 ml 500 ml 350 ml OutputOutput Total 300 ml BalanceBalance 350 ml 200 ml 350 ml Exam Exam Review of Systems: CONSTITUTIONAL: No fevers, chills. PULMONARY: No sob CARDIOVASCULAR: No chest pain/palpitations GASTROINTESTINAL: No nausea/vomiting. GENITOURINARY: No hematuria/dysuria. MUSCULOSKELETAL: No myagias/arthalgias. PSYCHIATRIC: The patient denies depression. NEUROLOGIC: More alert Constitutional: alert Psych: no complaints Head: normocephalic ENMT: mucosa pink and moist Neck: supple, jvd (9 cm water) Respiratory: diminished breath sounds (at bases/B) Gastrointestinal: soft, non-tender Musculoskeletal: muscle tone Extremities: edema (none) Neurological: other (No focal deficits) Labs Result Diagram: 02/05/19 0557 02/05/19 0557 Results 24hrs Laboratory Tests Test 02/04/19 12:14 02/04/19 17:10 02/04/19 20:15 02/05/19 02:37 Bedside Glucose 157 161 184 126 Test 02/05/19 05:49 02/05/19 05:57 02/05/19 11:41 Bedside Glucose 75 182 White Blood Count 7.0 # Red Blood Count 3.25 L Hemoglobin 10.3 L Hematocrit 32.5 L Mean Corpuscular Volume 100.0 Mean Corpuscular 31.7 Hemoglobin Mean Corpuscular 31.7 L Hemoglobin Concent Red Cell Distribution 13.6 Width Platelet Count 270 Mean Platelet Volume 10.8 H Immature Granulocytes % 2.300 H Neutrophils % 75.9 Lymphocytes % 12.4 L Monocytes % 7.7 Eosinophils % 1.0 Basophils % 0.7 Nucleated Red Blood 0.0 Cells % Immature Granulocytes # 0.160 H Neutrophils # 5.3 Lymphocytes # 0.9 Monocytes # 0.5 Eosinophils # 0.1 Basophils # 0.1 Nucleated Red Blood 0.0 Cells # Sodium Level 146 H Potassium Level 3.6 Chloride Level 108 Carbon Dioxide Level 30 Anion Gap 8 Blood Urea Nitrogen 43 H Creatinine 1.63 H Est Glomerular Filtrat Rate mL/min Glucose Level 65 L Calcium Level 8.9 Medications Medications Current Medications IV Flush (NS 3 ml) 3 ml PER PROTOCOL IV ; Start 02/01/19 at 05:00 Ondansetron HCl (Zofran Inj) 4 mg Q6H PRN IV NAUSEA/VOMITING; Start 02/01/19 at 05:00 Nitroglycerin (Nitroglycerin (Sl Tab) 0.4 Mg) 1 tab Q5M PRN SL .CHEST PAIN; Start 02/01/19 at 05:00 Acetaminophen (Tylenol Tab) 650 mg Q6H PRN PO .PAIN 1-3 OR TEMP Last administered on 02/03/19at 23:12; Admin Dose 650 MG; Start 02/01/19 at 05:00 Albuterol/ Ipratropium (Duoneb) 3 ml Q2H RESP THERAPY PRN HHN SHORTNESS OF BREATH Last administered on 02/02/19at 04:30; Admin Dose 3 ML; Start 02/01/19 at 05:00 Diagnostic Test (Pha) (Accu-Chek) 1 ea 02 XX ; Start 02/02/19 at 02:00 Insulin Glargine (Lantus) 10 units DAILY@2000 SC Last administered on 02/04/19at 20:49; Admin Dose 10 UNITS; Start 02/01/19 at 20:00 Ferrous Sulfate (Ferrous Sulfate (Ec)) 325 mg BID PO Last administered on 02/05/19 08:46; Admin Dose 325 MG; Start 02/01/19 at 09:00 Hydrocodone Bit/ Homatropine Methylb (Hycodan Liquid) 5 ml DAILY PRN PO COUGH Last administered on 02/04/19 21:20; Admin Dose 5 ML; Start 02/01/19 at 05:00 Levothyroxine Sodium (Synthroid) 75 mcg BEFORE BREAKFAST PO Last administered on 02/05/19 05:34; Admin Dose 75 MCG; Start 02/01/19 at 07:00 Lubiprostone (Amitiza) 24 mcg WITH BREAKFAST DINNE PO Last administered on 02/04/19 18:49; Admin Dose 24 MCG; Start 02/01/19 at 08:00 Meclizine HCl (Antivert) 25 mg TID PO Last administered on 02/05/19 08:46; Admin Dose 25 MG; Start 02/01/19 at 09:00 Polyethylene Glycol (Miralax) 17 gm DAILY PO Last administered on 02/05/19 08:46; Admin Dose 17 GM; Start 02/01/19 at 09:00 Sotalol HCl (Betapace) 40 mg BID PO Last administered on 02/05/19 08:46; Admin Dose 40 MG; Start 02/01/19 at 09:00 Pantoprazole (Protonix Tab) 40 mg DAILY@06 PO Last administered on 02/05/19 05:35; Admin Dose 40 MG; Start 02/01/19 at 06:00 Miscellaneous Information 1 ea NOTE XX ; Start 02/01/19 at 05:30 Glucose (Glutose) 15 gm Q15M PRN PO DECREASED GLUCOSE; Start 02/01/19 at 05:30 Glucose (Glutose) 22.5 gm Q15M PRN PO DECREASED GLUCOSE; Start 02/01/19 at 05:30 Dextrose (D50w Syringe) 25 ml Q15M PRN IV DECREASED GLUCOSE Last administered on 02/04/19 06:36; Admin Dose 25 ML; Start 02/01/19 at 05:30 Dextrose (D50w Syringe) 50 ml Q15M PRN IV DECREASED GLUCOSE; Start 02/01/19 at 05:30 Glucagon (Glucagen) 1 mg Q15M PRN IM DECREASED GLUCOSE; Start 02/01/19 at 05:30 Glucose (Glutose) 15 gm Q15M PRN BUCCAL DECREASED GLUCOSE; Start 02/01/19 at 05: 30 Docusate Sodium (Colace Liquid Cup) 100 mg DAILY PO Last administered on 02/05/19 08:44; Admin Dose 100 MG; Start 02/01/19 at 13:30 Patient Own Medication 1 ea HS BOTH EYES Last administered on 02/04/19 20:19; Admin Dose 1 EA; Start 02/01/19 at 21:00 Patient Own Medication 1 ea BID BOTH EYES Last administered on 02/05/19 08:47; Admin Dose 1 EA; Start 02/01/19 at 21:00 Apixaban (Eliquis) 2.5 mg BID PO Last administered on 02/05/19 08:46; Admin Dose 2.5 MG; Start 02/01/19 at 21:00 Benzonatate (Tessalon) 100 mg TID PRN PO COUGH Last administered on 02/02/19 09:49; Admin Dose 100 MG; Start 02/02/19 at 02:30 Piperacillin Sod/ Tazobactam Sod 100 ml @ 25 mls/hr Q8 IVPB Last administered on 02/05/19 05:32; Admin Dose 25 MLS/HR; Start 02/02/19 at 09:01 Vancomycin HCl (Vanco Iv Per Pharmacy) VANCOMYCIN PER PHARMACY PER PROTOCOL XX ; Start 02/02/19 at 06:30 Eye Lubricant (Refresh Plus) 1 drop Q4H PRN BOTH EYES .DRY EYES; Start 02/02/19 at 10:00 Allopurinol (Zyloprim) 100 mg DAILY PO Last administered on 02/05/19 08:46; Admin Dose 100 MG; Start 02/02/19 at 10:30 Linagliptin (Tradjenta) 5 mg DAILY PO Last administered on 02/05/19 08:46; Admin Dose 5 MG; Start 02/02/19 at 10:30 Gentamicin Sulfate (Gentamicin 0.3% Oph Drop) 1 drop Q4 RIGHT EYE Last administered on 02/05/19 08:47; Admin Dose 1 DROP; Start 02/02/19 at 13:00 Albuterol/ Ipratropium (Duoneb) 3 ml Q4H RESP THERAPY HHN Last administered on 02/05/19 10:42; Admin Dose 3 ML; Start 02/02/19 at 13:00 Vancomycin/Sodium Chloride 250 ml @ 125 mls/hr Q48H IVPB Last administered on 02/04/19 10:40; Admin Dose 125 MLS/HR; Start 02/04/19 at 09:00 Dextrose/Sodium Chloride 500 ml @ 40 mls/hr [id number] IV Last administered on 02/05/19 02:07; Admin Dose 40 MLS/HR; Start 02/03/19 at 13:00 Insulin Aspart (Novolog Insulin Pen) NOVOLOG *MILD* ALGORITHM AC MEALS AND BEDTIME SC Last administered on 02/05/19 11:49; Admin Dose 2 UNIT; Start 02/03/19 at 17:30 Furosemide (Lasix) 20 mg DAILY IV Last administered on 02/05/19 08:45; Admin Dose 20 MG; Start 02/05/19 at 09:00 SHAWANDA LUGO Feb 05, 2019 12:06
--- NOTE | 2019-02-05 14:44 | PN ---
Date/Time of Note Date/Time of Note DATE: 02/05/19 TIME: 14:39 Assessment/Plan VTE Prophylaxis Risk score (from Ns)>0 risk: 8 SCD applied (from Ns): Yes Pharmacological prophylaxis: apixaban Lines/Catheters IV Catheter Type (from Rust): Saline Lock Urinary Cath still in place: No Assessment/Plan Assessment/Plan 1. Community acquired pneumonia, improving on antibiotics(zosyn/vanco), mucomyst 2. Chronic atrial fibrillation, pacing rhythm, on eliquis 3. Hypothyroidism, on synthroid 4. HTN, controlled 5. Renal failure, acute versus chronic, follow up with BMP 6. Gout, 7. Macrocytic anemia, chronic 8. s/p pacemaker 9. DM, continue treatment Result Diagram: 02/05/19 0557 02/05/19 0557 Results 24hrs Laboratory Tests Test 02/04/19 17:10 02/04/19 20:15 02/05/19 02:37 02/05/19 05:49 Bedside Glucose 161 184 126 75 Test 02/05/19 05:57 02/05/19 11:41 White Blood Count 7.0 # Red Blood Count 3.25 L Hemoglobin 10.3 L Hematocrit 32.5 L Mean Corpuscular Volume 100.0 Mean Corpuscular 31.7 Hemoglobin Mean Corpuscular 31.7 L Hemoglobin Concent Red Cell Distribution 13.6 Width Platelet Count 270 Mean Platelet Volume 10.8 H Immature Granulocytes % 2.300 H Neutrophils % 75.9 Lymphocytes % 12.4 L Monocytes % 7.7 Eosinophils % 1.0 Basophils % 0.7 Nucleated Red Blood 0.0 Cells % Immature Granulocytes # 0.160 H Neutrophils # 5.3 Lymphocytes # 0.9 Monocytes # 0.5 Eosinophils # 0.1 Basophils # 0.1 Nucleated Red Blood 0.0 Cells # Sodium Level 146 H Potassium Level 3.6 Chloride Level 108 Carbon Dioxide Level 30 Anion Gap 8 Blood Urea Nitrogen 43 H Creatinine 1.63 H Est Glomerular Filtrat Rate mL/min Glucose Level 65 L Calcium Level 8.9 Bedside Glucose 182 Subjective 24 Hr Interval Summary Free Text/Dictation difficulty in bringing up sputum Exam/Review of Systems Exam Vitals Vital Signs Date Temp Pulse Resp B/P (MAP) Pulse Ox O2 O2 Flow FiO2 Time Delivery Rate 02/05/19 78 16 96 Nasal 2.0 14:10 Cannula 02/05/19 98.2 123/69 11:41 (87) 02/02/19 30 04:35 Intake and Output 02/04/19 02/04/19 02/05/19 1414:59 22:59 06:59 IntakeIntake Total 350 ml 500 ml 350 ml OutputOutput Total 300 ml BalanceBalance 350 ml 200 ml 350 ml Constitutional: alert, oriented, well developed Psych: no complaints, nl mood/affect Head: normocephalic, atraumatic Eyes: nl conjunctiva, EOMI, nl lids, PERRL ENMT: nl external ears & nose, nl lips & teeth, nl nasal mucosa & septum Neck: supple, non-tender Respiratory: crackles/rales Cardiovascular: regular rate and rhythm, nl pulses Gastrointestinal: soft, nl liver, spleen, non-tender Musculoskeletal: nl extremities to inspection Extremities: normal pulses; No calf tenderness, No cyanosis, No clubbing, No edema, No pitting pedal edema, No palpable cord, No tenderness, No other Neurological: EXPERIMENTAL PHYSICIST II-XII intact, nl mental status, nl speech, nl strength Skin: nl turgor Results Results 24hrs Laboratory Tests Test 02/04/19 17:10 02/04/19 20:15 02/05/19 02:37 02/05/19 05:49 Bedside Glucose 161 184 126 75 Test 02/05/19 05:57 02/05/19 11:41 White Blood Count 7.0 # Red Blood Count 3.25 L Hemoglobin 10.3 L Hematocrit 32.5 L Mean Corpuscular Volume 100.0 Mean Corpuscular 31.7 Hemoglobin Mean Corpuscular 31.7 L Hemoglobin Concent Red Cell Distribution 13.6 Width Platelet Count 270 Mean Platelet Volume 10.8 H Immature Granulocytes % 2.300 H Neutrophils % 75.9 Lymphocytes % 12.4 L Monocytes % 7.7 Eosinophils % 1.0 Basophils % 0.7 Nucleated Red Blood 0.0 Cells % Immature Granulocytes # 0.160 H Neutrophils # 5.3 Lymphocytes # 0.9 Monocytes # 0.5 Eosinophils # 0.1 Basophils # 0.1 Nucleated Red Blood 0.0 Cells # Sodium Level 146 H Potassium Level 3.6 Chloride Level 108 Carbon Dioxide Level 30 Anion Gap 8 Blood Urea Nitrogen 43 H Creatinine 1.63 H Est Glomerular Filtrat Rate mL/min Glucose Level 65 L Calcium Level 8.9 Bedside Glucose 182 Medications Medication Current Medications IV Flush (NS 3 ml) 3 ml PER PROTOCOL IV ; Start 02/01/19 at 05:00 Ondansetron HCl (Zofran Inj) 4 mg Q6H PRN IV NAUSEA/VOMITING; Start 02/01/19 at 05:00 Nitroglycerin (Nitroglycerin (Sl Tab) 0.4 Mg) 1 tab Q5M PRN SL .CHEST PAIN; Start 02/01/19 at 05:00 Acetaminophen (Tylenol Tab) 650 mg Q6H PRN PO .PAIN 1-3 OR TEMP Last administered on 02/03/19 23:12; Admin Dose 650 MG; Start 02/01/19 at 05:00 Albuterol/ Ipratropium (Duoneb) 3 ml Q2H RESP THERAPY PRN HHN SHORTNESS OF INDIGO TH Last administered on 02/02/19 04:30; Admin Dose 3 ML; Start 02/01/19 at 05:00 Diagnostic Test (Pha) (Accu-Chek) 1 ea 02 XX ; Start 02/02/19 at 02:00 Insulin Glargine (Lantus) 10 units DAILY@2000 SC Last administered on 02/04/19 20:49; Admin Dose 10 UNITS; Start 02/01/19 at 20:00 Ferrous Sulfate (Ferrous Sulfate (Ec)) 325 mg BID PO Last administered on 02/05/19 08:46; Admin Dose 325 MG; Start 02/01/19 at 09:00 Hydrocodone Bit/ Homatropine Methylb (Hycodan Liquid) 5 ml DAILY PRN PO COUGH Last administered on 02/04/19 21:20; Admin Dose 5 ML; Start 02/01/19 at 05:00 Levothyroxine Sodium (Synthroid) 75 mcg BEFORE BREAKFAST PO Last administered on 02/05/19 05:34; Admin Dose 75 MCG; Start 02/01/19 at 07:00 Lubiprostone (Amitiza) 24 mcg WITH BREAKFAST DINNE PO Last administered on 02/04/19 18:49; Admin Dose 24 MCG; Start 02/01/19 at 08:00 Meclizine HCl (Antivert) 25 mg TID PO Last administered on 02/05/19 13:05; Admin Dose 25 MG; Start 02/01/19 at 09:00 Polyethylene Glycol (Miralax) 17 gm DAILY PO Last administered on 02/05/19 08:46; Admin Dose 17 GM; Start 02/01/19 at 09:00 Sotalol HCl (Betapace) 40 mg BID PO Last administered on 02/05/19 08:46; Admin Dose 40 MG; Start 02/01/19 at 09:00 Pantoprazole (Protonix Tab) 40 mg DAILY@06 PO Last administered on 02/05/19 05:35; Admin Dose 40 MG; Start 02/01/19 at 06:00 Miscellaneous Information 1 ea NOTE XX ; Start 02/01/19 at 05:30 Glucose (Glutose) 15 gm Q15M PRN PO DECREASED GLUCOSE; Start 02/01/19 at 05:30 Glucose (Glutose) 22.5 gm Q15M PRN PO DECREASED GLUCOSE; Start 02/01/19 at 05:30 Dextrose (D50w Syringe) 25 ml Q15M PRN IV DECREASED GLUCOSE Last administered on 02/04/19at 06:36; Admin Dose 25 ML; Start 02/01/19 at 05:30 Dextrose (D50w Syringe) 50 ml Q15M PRN IV DECREASED GLUCOSE; Start 02/01/19 at 05:30 Glucagon (Glucagen) 1 mg Q15M PRN IM DECREASED GLUCOSE; Start 02/01/19 at 05:30 Glucose (Glutose) 15 gm Q15M PRN BUCCAL DECREASED GLUCOSE; Start 02/01/19 at 05:30 Docusate Sodium (Colace Liquid Cup) 100 mg DAILY PO Last administered on 02/05/19 08:44; Admin Dose 100 MG; Start 02/01/19 at 13:30 Patient Own Medication 1 ea HS BOTH EYES Last administered on 02/04/19 20:19; Admin Dose 1 EA; Start 02/01/19 at 21:00 Patient Own Medication 1 ea BID BOTH EYES Last administered on 02/05/19 08:47; Admin Dose 1 EA; Start 02/01/19 at 21:00 Apixaban (Eliquis) 2.5 mg BID PO Last administered on 02/05/19 08:46; Admin Dose 2.5 MG; Start 02/01/19 at 21:00 Benzonatate (Tessalon) 100 mg TID PRN PO COUGH Last administered on 02/02/19 09:49; Admin Dose 100 MG; Start 02/02/19 at 02:30 Piperacillin Sod/ Tazobactam Sod 100 ml @ 25 mls/hr Q8 IVPB Last administered on 02/05/19 13:04; Admin Dose 25 MLS/HR; Start 02/02/19 at 09:01 Vancomycin HCl (Vanco Iv Per Pharmacy) VANCOMYCIN PER PHARMACY PER PROTOCOL XX ; Start 02/02/19 at 06:30 Eye Lubricant (Refresh Plus) 1 drop Q4H PRN BOTH EYES .DRY EYES; Start 02/02/19 at 10:00 Allopurinol (Zyloprim) 100 mg DAILY PO Last administered on 02/05/19 08:46; Admin Dose 100 MG; Start 02/02/19 at 10:30 Linagliptin (Tradjenta) 5 mg DAILY PO Last administered on 02/05/19 08:46; Admin Dose 5 MG; Start 02/02/19 at 10:30 Gentamicin Sulfate (Gentamicin 0.3% Oph Drop) 1 drop Q4 RIGHT EYE Last adminis tered on 02/05/19 13:05; Admin Dose 1 DROP; Start 02/02/19 at 13:00 Albuterol/ Ipratropium (Duoneb) 3 ml Q4H RESP THERAPY HHN Last administered on 02/05/19 14:07; Admin Dose 3 ML; Start 02/02/19 at 13:00 Vancomycin/Sodium Chloride 250 ml @ 125 mls/hr Q48H IVPB Last administered on 02/04/19 10:40; Admin Dose 125 MLS/HR; Start 02/04/19 at 09:00 Dextrose/Sodium Chloride 500 ml @ 40 mls/hr [id number] IV Last administered on 02/05/19 02:07; Admin Dose 40 MLS/HR; Start 02/03/19 at 13:00 Insulin Aspart (Novolog Insulin Pen) NOVOLOG *MILD* ALGORITHM AC MEALS AND BEDTIME SC Last administered on 02/05/19 11:49; Admin Dose 2 UNIT; Start 02/03/19 at 17:30 Furosemide (Lasix) 20 mg BID DIURETICS IV ; Start 02/05/19 at 18:00 CHARMAINE MENCHACA MD Feb 05, 2019 14:44
--- NOTE | 2019-02-05 14:58 | CONS ---
Assessment/Plan Assessment/Plan Assessment/Plan (Daily) 88 y./o with ssessment/Plan (Daily) 1. acute kidney injury on CKD due to hemodyanmics from CHF 2. acute CHF, acute on chronic diastolic CHF, ECHO showed EF 60% with stage II diastoilc dysfunction 3. H/o HTN 4. H/o HL 5. Anemia of CKD 6. H/o history of CHF, atrial fibrillation, diabetes, hypothyroidism, CKD, GI bleed, pacemaker, 7 Pneumonia 8 resp failure likely secondary to CHF/pneumonia Plan -Agree with Lasix 20 every day twice daily -Antibiotics per primary -? Consider CT of the chest - fu monitor Cr - abx renally dosed Consultation Date/Type/Reason Admit Date/Time Feb 02, 2019 at 10:08 Initial Consult Date 02/02/19 Requesting Provider: ANDREA KHAN NP Date/Time of Note DATE: 02/05/19 TIME: 14:55 24 HR Interval Summary Free Text/Dictation Still short of breath this morning per the daughter uop 850 CC Exam/Review of Systems Exam Vitals Vital Signs Date Temp Pulse Resp B/P (MAP) Pulse Ox O2 O2 Flow FiO2 Time Delivery Rate 02/05/19 78 16 96 Nasal 2.0 14:10 Cannula 02/05/19 98.2 123/69 11:41 (87) 02/02/19 30 04:35 Intake and Output 02/04/19 02/04/19 02/05/19 1414:59 22:59 06:59 IntakeIntake Total 350 ml 500 ml 350 ml OutputOutput Total 300 ml BalanceBalance 350 ml 200 ml 350 ml Exam nstitutional: Frail looking, elderly female, not in acute distress. Psych: nl mood/affect, no complaints Head: atraumatic, normocephalic Eyes: nl conjunctiva, nl sclera ENMT: mucosa pink and moist, nl external ears & nose Neck: non-tender, supple Respiratory: decreased movemnt on rt Cardiovascular:. Diminished bases some crackles. nl pulses, regular rate and rhythm Gastrointestinal: non-tender, soft, bowel sounds active in all 4 quadrants. Musculoskeletal/extremities: nl extremities to inspection, motor strength equal bilaterally, no focal deficit. Normal pulses,no cyanosis, no edema. Neurological: Alert oriented 3,nl speech, nl strength Skin: nl turgor Results Result Diagram: 02/05/19 0557 02/05/19 0557 Results 24hrs Laboratory Tests Test 02/04/19 17:10 02/04/19 20:15 02/05/19 02:37 02/05/19 05:49 Bedside Glucose 161 184 126 75 Test 02/05/19 05:57 02/05/19 11:41 White Blood Count 7.0 # Red Blood Count 3.25 L Hemoglobin 10.3 L Hematocrit 32.5 L Mean Corpuscular Volume 100.0 Mean Corpuscular 31.7 Hemoglobin Mean Corpuscular 31.7 L Hemoglobin Concent Red Cell Distribution 13.6 Width Platelet Count 270 Mean Platelet Volume 10.8 H Immature Granulocytes % 2.300 H Neutrophils % 75.9 Lymphocytes % 12.4 L Monocytes % 7.7 Eosinophils % 1.0 Basophils % 0.7 Nucleated Red Blood 0.0 Cells % Immature Granulocytes # 0.160 H Neutrophils # 5.3 Lymphocytes # 0.9 Monocytes # 0.5 Eosinophils # 0.1 Basophils # 0.1 Nucleated Red Blood 0.0 Cells # Sodium Level 146 H Potassium Level 3.6 Chloride Level 108 Carbon Dioxide Level 30 Anion Gap 8 Blood Urea Nitrogen 43 H Creatinine 1.63 H Est Glomerular Filtrat Rate mL/min Glucose Level 65 L Calcium Level 8.9 Bedside Glucose 182 Medications Medication Current Medications IV Flush (NS 3 ml) 3 ml PER PROTOCOL IV ; Start 02/01/19 at 05:00 Ondansetron HCl (Zofran Inj) 4 mg Q6H PRN IV NAUSEA/VOMITING; Start 02/01/19 at 05:00 Nitroglycerin (Nitroglycerin (Sl Tab) 0.4 Mg) 1 tab Q5M PRN SL .CHEST PAIN; Start 02/01/19 at 05:00 Acetaminophen (Tylenol Tab) 650 mg Q6H PRN PO .PAIN 1-3 OR TEMP Last administered on 02/03/19at 23:12; Admin Dose 650 MG; Start 02/01/19 at 05:00 Albuterol/ Ipratropium (Duoneb) 3 ml Q2H RESP THERAPY PRN HHN SHORTNESS OF BREATH Last administered on 02/02/19at 04:30; Admin Dose 3 ML; Start 02/01/19 at 05:00 Diagnostic Test (Pha) (Accu-Chek) 1 ea 02 XX ; Start 02/02/19 at 02:00 Insulin Glargine (Lantus) 10 units DAILY@2000 SC Last administered on 02/04/19 20:49; Admin Dose 10 UNITS; Start 02/01/19 at 20:00 Ferrous Sulfate (Ferrous Sulfate (Ec)) 325 mg BID PO Last administered on 02/05/19 08:46; Admin Dose 325 MG; Start 02/01/19 at 09:00 Hydrocodone Bit/ Homatropine Methylb (Hycodan Liquid) 5 ml DAILY PRN PO COUGH Last administered on 02/04/19 21:20; Admin Dose 5 ML; Start 02/01/19 at 05:00 Levothyroxine Sodium (Synthroid) 75 mcg BEFORE BREAKFAST PO Last administered on 02/05/19 05:34; Admin Dose 75 MCG; Start 02/01/19 at 07:00 Lubiprostone (Amitiza) 24 mcg WITH BREAKFAST DINNE PO Last administered on 02/04/19 18:49; Admin Dose 24 MCG; Start 02/01/19 at 08:00 Meclizine HCl (Antivert) 25 mg TID PO Last administered on 02/05/19 13:05; Admin Dose 25 MG; Start 02/01/19 at 09:00 Polyethylene Glycol (Miralax) 17 gm DAILY PO Last administered on 02/05/19 08:46; Admin Dose 17 GM; Start 02/01/19 at 09:00 Sotalol HCl (Betapace) 40 mg BID PO Last administered on 02/05/19 08:46; Admin Dose 40 MG; Start 02/01/19 at 09:00 Pantoprazole (Protonix Tab) 40 mg DAILY@06 PO Last administered on 02/05/19 05:35; Admin Dose 40 MG; Start 02/01/19 at 06:00 Miscellaneous Information 1 ea NOTE XX ; Start 02/01/19 at 05:30 Glucose (Glutose) 15 gm Q15M PRN PO DECREASED GLUCOSE; Start 02/01/19 at 05:30 Glucose (Glutose) 22.5 gm Q15M PRN PO DECREASED GLUCOSE; Start 02/01/19 at 05:30 Dextrose (D50w Syringe) 25 ml Q15M PRN IV DECREASED GLUCOSE Last administered on 3/7/19at 06:36; Admin Dose 25 ML; Start 02/01/19 at 05:30 Dextrose (D50w Syringe) 50 ml Q15M PRN IV DECREASED GLUCOSE; Start 02/01/19 at 05:30 Glucagon (Glucagen) 1 mg Q15M PRN IM DECREASED GLUCOSE; Start 02/01/19 at 05:30 Glucose (Glutose) 15 gm Q15M PRN BUCCAL DECREASED GLUCOSE; Start 02/01/19 at 05:30 Docusate Sodium (Colace Liquid Cup) 100 mg DAILY PO Last administered on 02/05/19 08:44; Admin Dose 100 MG; Start 02/01/19 at 13:30 Patient Own Medication 1 ea HS BOTH EYES Last administered on 02/04/19 20:19; Admin Dose 1 EA; Start 02/01/19 at 21:00 Patient Own Medication 1 ea BID BOTH EYES Last administered on 02/05/19 08:47; Admin Dose 1 EA; Start 02/01/19 at 21:00 Apixaban (Eliquis) 2.5 mg BID PO Last administered on 02/05/19 08:46; Admin Dose 2.5 MG; Start 02/01/19 at 21:00 Benzonatate (Tessalon) 100 mg TID PRN PO COUGH Last administered on 02/02/19 09:49; Admin Dose 100 MG; Start 02/02/19 at 02:30 Piperacillin Sod/ Tazobactam Sod 100 ml @ 25 mls/hr Q8 IVPB Last administered on 02/05/19 13:04; Admin Dose 25 MLS/HR; Start 02/02/19 at 09:01 Vancomycin HCl (Vanco Iv Per Pharmacy) VANCOMYCIN PER PHARMACY PER PROTOCOL XX ; Start 02/02/19 at 06:30 Eye Lubricant (Refresh Plus) 1 drop Q4H PRN BOTH EYES .DRY EYES; Start 02/02/19 at 10:00 Allopurinol (Zyloprim) 100 mg DAILY PO Last administered on 02/05/19 08:46; Admin Dose 100 MG; Start 02/02/19 at 10:30 Linagliptin (Tradjenta) 5 mg DAILY PO Last administered on 02/05/19 08:46; Admin Dose 5 MG; Start 02/02/19 at 10:30 Gentamicin Sulfate (Gentamicin 0.3% Oph Drop) 1 drop Q4 RIGHT EYE Last administered on 02/05/19 13:05; Admin Dose 1 DROP; Start 02/02/19 at 13:00 Albuterol/ Ipratropium (Duoneb) 3 ml Q4H RESP THERAPY HHN Last administered on 02/05/19 14:07; Admin Dose 3 ML; Start 02/02/19 at 13:00 Vancomycin/Sodium Chloride 250 ml @ 125 mls/hr Q48H IVPB Last administered on 02/04/19 10:40; Admin Dose 125 MLS/HR; Start 02/04/19 at 09:00 Dextrose/Sodium Chloride 500 ml @ 40 mls/hr [id number] IV Last administered on 02/05/19 02:07; Admin Dose 40 MLS/HR; Start 02/03/19 at 13:00 Insulin Aspart (Novolog Insulin Pen) NOVOLOG *MILD* ALGORITHM AC MEALS AND BEDTIME SC Last administered on 02/05/19 11:49; Admin Dose 2 UNIT; Start 02/03 at 17:30 Furosemide (Lasix) 20 mg BID DIURETICS IV ; Start 02/05/19 at 18:00 Acetylcysteine (Mucomyst) 1 ml BID NEB ; Start 02/05/19 at 21:00 JESSE CABEZAS MD Feb 05, 2019 14:58
[2019-02-05] MEDS: BENZONATATE 100 MG CAP PO PRN (17:32)
[2019-02-05] MEDS: FUROSEMIDE 20 MG INJ IV SCH (17:58)
[2019-02-05] MEDS: INSULIN GLARGINE [LANTus] (100 UNITS/ML) SYG SC SCH (20:00)
[2019-02-05] MEDS: ACETYLCYSTEINE 20% 4 ML VIAL NEB SCH (20:43)
[2019-02-06] MEDS: ALBUTEROL/IPRATROPIUM (NEB) 3 ML AMP HHN SCH ×6 (00:27→21:59)
[2019-02-06] MEDS: BENZONATATE 100 MG CAP PO PRN (01:08)
[2019-02-06] MEDS: GENTAMICIN 0.3% 5 ML OPH RIGHT EYE SCH ×6 (01:26→20:25)
[2019-02-06] MEDS: ACCU-CHEK XX SCH (01:29)
[2019-02-06 02:45] VITALS: BP 129/60; PULSE 61; RESP 20
[2019-02-06] MEDS: PIPER-TAZO 3.375 GM IV (PMX) 100 ML IVPB SCH ×3 (05:30→22:21)
[2019-02-06] MEDS: FUROSEMIDE 20 MG INJ IV SCH ×2 (05:30→17:50)
[2019-02-06] MEDS: PANTOPRAZOLE (EC) 40 MG TAB PO SCH (05:30)
[2019-02-06] MEDS: LEVOTHYROXINE 75 MCG TAB PO SCH (05:30)
[2019-02-06 05:39] VITALS: BP 130/60
[2019-02-06] MEDS: INSULIN ASPART [NOVOLOG] 3 ML PEN SC SCH ×4 (07:30→20:27)
[2019-02-06 07:59] VITALS: BP 125/60; PULSE 61; RESP 18
[2019-02-06] MEDS: MECLIZINE 25 MG TAB PO SCH ×3 (09:00→21:37)
[2019-02-06] MEDS: ACETYLCYSTEINE 20% 4 ML VIAL NEB SCH ×3 (09:00→21:59)
[2019-02-06] MEDS: FERROUS SULFATE (EC) 325 MG TAB PO SCH ×2 (09:07→20:26)
[2019-02-06] MEDS: DOCUSATE SODIUM 10 MG/ML (10ML CUP) PO SCH (09:07)
[2019-02-06] MEDS: SOTALOL 80 MG TAB PO SCH ×2 (09:07→20:27)
[2019-02-06] MEDS: POLYETHYLENE GLYCOL 17 GM PACKET PO SCH (09:08)
[2019-02-06] MEDS: APIXABAN 5 MG TABLET PO SCH ×2 (09:08→20:25)
[2019-02-06] MEDS: LINAGLIPTIN 5 MG TABLET PO SCH (09:08)
[2019-02-06] MEDS: ALLOPURINOL 100 MG TAB PO SCH (09:08)
[2019-02-06] MEDS: LUBIPROSTONE 24 MCG CAP PO SCH ×2 (09:23→17:50)
[2019-02-06] MEDS: VANCOMYCIN 750 MG (PMX) 250 ML IVPB SCH (09:23)
[2019-02-06] MEDS: PATIENT'S OWN MEDICATION BOTH EYES SCH ×3 (09:37→20:31)
--- NOTE | 2019-02-06 12:45 | CONS ---
Consult Date/Type/Reason Admit Date/Time Feb 02, 2019 at 10:08 Initial Consult Date 02/02/19 Type of Consult Pulmonary Requesting Provider: ANDREA KHAN NP Date/Time of Note DATE: 02/06/19 TIME: 12:43 Subjective Still short of breath with productive cough. Continue supplemental O2 Objective Vital Signs Date Temp Pulse Resp B/P (MAP) Pulse Ox O2 O2 Flow FiO2 Time Delivery Rate 02/06/19 98.4 61 18 125/60 97 07:59 (81) 02/06/19 Nasal 2.0 04:21 Cannula Intake and Output 02/05/19 02/05/19 02/06/19 1515:00 23:00 07:00 IntakeIntake Total 575 ml 585 ml OutputOutput Total 600 ml BalanceBalance 575 ml -15 ml Exam GENERAL: Frail elderly lady comfortable at rest VITAL SIGNS: per chart NECK: Supple. No JVD or lymphadenopathy. CARDIAC EXAM: S1, S2. No added sounds or murmurs. CHEST: Diminished air entry bilaterally ABDOMEN: Soft, nontender. No guarding or rebound. EXTREMITIES: No cyanosis, clubbing or edema. NEUROLOGIC: Generalized weakness. No focal deficits. Vent Setting Fraction of Inspired Oxygen pe: 30 Results/Medications Result Diagram: 02/06/19 0523 02/06/19 0523 Results 24 hrs Laboratory Tests Test 02/05/19 17:30 02/05/19 21:25 02/05/19 21:43 02/05/19 22:01 Bedside Glucose 117 69 L 92 102 Test 02/06/19 05:23 02/06/19 08:06 02/06/19 12:23 White Blood Count 8.4 Red Blood Count 3.29 L Hemoglobin 10.5 L Hematocrit 32.5 L Mean Corpuscular Volume 98.8 Mean Corpuscular 31.9 Hemoglobin Mean Corpuscular 32.3 Hemoglobin Concent Red Cell Distribution 13.5 Width Platelet Count 288 Mean Platelet Volume 11.0 H Immature Granulocytes % 2.400 H Neutrophils % 78.1 H Lymphocytes % 10.0 L Monocytes % 7.9 Eosinophils % 1.0 Basophils % 0.6 Nucleated Red Blood 0.0 Cells % Immature Granulocytes # 0.200 H Neutrophils # 6.5 Lymphocytes # 0.8 Monocytes # 0.7 Eosinophils # 0.1 Basophils # 0.1 Nucleated Red Blood 0.0 Cells # Sodium Level 147 H Potassium Level 3.2 L Chloride Level 107 Carbon Dioxide Level 31 Anion Gap 9 Blood Urea Nitrogen 36 H Creatinine 1.55 H Est Glomerular Filtrat Rate mL/min Glucose Level 98 Calcium Level 8.9 Bedside Glucose 85 97 Medications Current Medications IV Flush (NS 3 ml) 3 ml PER PROTOCOL IV ; Start 02/01/19 at 05:00 Ondansetron HCl (Zofran Inj) 4 mg Q6H PRN IV NAUSEA/VOMITING; Start 02/01/19 at 05:00 Nitroglycerin (Nitroglycerin (Sl Tab) 0.4 Mg) 1 tab Q5M PRN SL .CHEST PAIN; Start 02/01/19 at 05:00 Acetaminophen (Tylenol Tab) 650 mg Q6H PRN PO .PAIN 1-3 OR TEMP Last administered on 02/03/19 23:12; Admin Dose 650 MG; Start 02/01/19 at 05:00 Albuterol/ Ipratropium (Duoneb) 3 ml Q2H RESP THERAPY PRN HHN SHORTNESS OF BREATH Last administered on 02/02/19 04:30; Admin Dose 3 ML; Start 02/01/19 at 05:00 Diagnostic Test (Pha) (Accu-Chek) 1 ea 02 XX ; Start 02/02/19 at 02:00 Insulin Glargine (Lantus) 10 units DAILY@2000 SC Last administered on 02/04/19 20:49; Admin Dose 10 UNITS; Start 02/01/19 at 20:00 Ferrous Sulfate (Ferrous Sulfate (Ec)) 325 mg BID PO Last administered on 02/06/19 09:07; Admin Dose 325 MG; Start 02/01/19 at 09:00 Hydrocodone Bit/ Homatropine Methylb (Hycodan Liquid) 5 ml DAILY PRN PO COUGH Last administered on 02/04/19 21:20; Admin Dose 5 ML; Start 02/01/19 at 05:00 Levothyroxine Sodium (Synthroid) 75 mcg BEFORE BREAKFAST PO Last administered on 02/06/19 05:30; Admin Dose 75 MCG; Start 02/01/19 at 07:00 Lubiprostone (Amitiza) 24 mcg WITH BREAKFAST DINNE PO Last administered on 02/06/19 09:23; Admin Dose 24 MCG; Start 02/01/19 at 08:00 Meclizine HCl (Antivert) 25 mg TID PO Last administered on 02/06/19at 09:00; Admin Dose 25 MG; Start 02/01/19 at 09:00 Polyethylene Glycol (Miralax) 17 gm DAILY PO Last administered on 02/06/19 09:08; Admin Dose 17 GM; Start 02/01/19 at 09:00 Sotalol HCl (Betapace) 40 mg BID PO Last administered on 02/06/19 09:07; Admin Dose 40 MG; Start 02/01/19 at 09:00 Pantoprazole (Protonix Tab) 40 mg DAILY@06 PO Last administered on 02/06/19 05:30; Admin Dose 40 MG; Start 02/01/19 at 06:00 Miscellaneous Information 1 ea NOTE XX ; Start 02/01/19 at 05:30 Glucose (Glutose) 15 gm Q15M PRN PO DECREASED GLUCOSE; Start 02/01/19 at 05:30 Glucose (Glutose) 22.5 gm Q15M PRN PO DECREASED GLUCOSE; Start 02/01/19 at 05:30 Dextrose (D50w Syringe) 25 ml Q15M PRN IV DECREASED GLUCOSE Last administered on 02/04/19at 06:36; Admin Dose 25 ML; Start 02/01/19 at 05:30 Dextrose (D50w Syringe) 50 ml Q15M PRN IV DECREASED GLUCOSE; Start 02/01/19 at 05:30 Glucagon (Glucagen) 1 mg Q15M PRN IM DECREASED GLUCOSE; Start 02/01/19 at 05:30 Glucose (Glutose) 15 gm Q15M PRN BUCCAL DECREASED GLUCOSE; Start 02/01/19 at 05:30 Docusate Sodium (Colace Liquid Cup) 100 mg DAILY PO Last administered on 02/06/19at 09:07; Admin Dose 100 MG; Start 02/01/19 at 13:30 Patient Own Medication 1 ea HS BOTH EYES Last administered on 02/04/19 20:19; Admin Dose 1 EA; Start 02/01/19 at 21:00 Patient Own Medication 1 ea BID BOTH EYES Last administered on 02/06/19at 09:37; Admin Dose 1 EA; Start 02/01/19 at 21:00 Apixaban (Eliquis) 2.5 mg BID PO Last administered on 02/06/19 09:08; Admin Dose 2.5 MG; Start 02/01/19 at 21:00 Benzonatate (Tessalon) 100 mg TID PRN PO COUGH Last administered on 02/06/19 01:08; Admin Dose 100 MG; Start 02/02/19 at 02:30 Piperacillin Sod/ Tazobactam Sod 100 ml @ 25 mls/hr Q8 IVPB Last administered on 02/06/19 05:30; Admin Dose 25 MLS/HR; Start 02/02/19 at 09:01 Vancomycin HCl (Vanco Iv Per Pharmacy) VANCOMYCIN PER PHARMACY PER PROTOCOL XX ; Start 02/02/19 at 06:30 Eye Lubricant (Refresh Plus) 1 drop Q4H PRN BOTH EYES .DRY EYES; Start 02/02/19 at 10:00 Allopurinol (Zyloprim) 100 mg DAILY PO Last administered on 02/06/19 09:08; Admin Dose 100 MG; Start 02/02/19 at 10:30 Linagliptin (Tradjenta) 5 mg DAILY PO Last administered on 02/06/19 09:08; Admin Dose 5 MG; Start 02/02/19 at 10:30 Gentamicin Sulfate (Gentamicin 0.3% Oph Drop) 1 drop Q4 RIGHT EYE Last administered on 02/06/19 09:09; Admin Dose 1 DROP; Start 02/02/19 at 13:00 Albuterol/ Ipratropium (Duoneb) 3 ml Q4H RESP THERAPY HHN Last administered on 02/06/19 04:21; Admin Dose 3 ML; Start 02/02/19 at 13:00 Vancomycin/Sodium Chloride 250 ml @ 125 mls/hr Q48H IVPB Last administered on 02/06/19 09:23; Admin Dose 125 MLS/HR; Start 02/04/19 at 09:00 Dextrose/Sodium Chloride 500 ml @ 40 mls/hr [id number] IV Last administered on 02/05/19 21:38; Admin Dose 40 MLS/HR; Start 02/03/19 at 13:00 Insulin Aspart (Novolog Insulin Pen) NOVOLOG *MILD* ALGORITHM AC MEALS AND BEDTIME SC Last administered on 02/05/19 11:49; Admin Dose 2 UNIT; Start 02/03/19 at 17:30 Furosemide (Lasix) 20 mg BID DIURETICS IV Last administered on 02/06/19at 05:30; Admin Dose 20 MG; Start 02/05/19 at 18:00 Acetylcysteine (Mucomyst) 1 ml BID NEB Last administered on 02/05/19at 20:43; Admin Dose 1 ML; Start 02/05/19 at 21:00 Assessment/Plan Hospital Course (Demo Recall) Assessment 1. Acute hypoxemic respiratory failure aspiration versus community-acquired pneumonia 2. Encephalopathy toxic metabolic 3. Renal insufficiency 4. History of diabetes mellitus 5. history of chronic congestive cardiac failure and atrial fibrillation Recommendations 1. Speech therapy evaluation aspiration precautions 2. Supplemental O2 decrease as tolerated 3. Continue current antibiotics 4. Repeat chest x-ray in a.m. 5. Would hold off on diuretics Mccord BERNARD Bautista MD, [facility] Feb 06, 2019 12:45
[2019-02-06 14:00] VITALS: BP 112/61; PULSE 56; RESP 18
--- NOTE | 2019-02-06 15:03 | PN ---
Date/Time of Note Date/Time of Note DATE: 02/06/19 TIME: 14:56 Assessment/Plan VTE Prophylaxis Risk score (from [facility] [place])>0 risk: 6 SCD applied (from [facility] [place]): Yes Pharmacological prophylaxis: heparin Lines/Catheters IV Catheter Type (from [facility]): Peripheral IV Urinary Cath still in place: No Assessment/Plan Problems: (1) Right lower lobe pneumonia Status: Acute Comment: As she is getting a little bit better she is a bit better with swallowing. Speech therapy is working with her for protection for aspiration in the future Qualifiers: Pneumonia type: aspiration pneumonia Aspiration pneumonia type: unspecified Qualified Codes: J69.0 - Pneumonitis due to inhalation of food and vomit (2) At risk for aspiration Status: Chronic Comment: Noted. (3) Grade II diastolic dysfunction Status: Chronic Comment: Please note this is the cause of her heart failure. Aggressive blood pressure control and pulse rate control are important. Since she has a pacemak er in were not can cause pulse to go to low (4) Paroxysmal atrial fibrillation Status: Acute Comment: Presently in sinus rhythm (5) Left atrial enlargement Status: Chronic Comment: Noted. (6) Right atrial enlargement Status: Chronic Comment: Noted. (7) Pacemaker Status: Chronic Comment: Operational. (8) Centrilobular emphysema Status: Chronic Comment: Identified on CT scan. Initiate treatment of COPD measures to see if we can improve her quality of life (9) Acquired hypothyroidism Status: Chronic Comment: Maintain thyroid hormone replacement therapy (10) Chronic kidney disease, stage 2, mildly decreased GFR Status: Chronic Comment: Stable, no intervention but make sure not to dehydrate the patient (11) Dementia Status: Chronic Comment: Noted. Qualifiers: Dementia type: Alzheimer's disease Alzheimer's disease onset: late-onset Dementia behavioral disturbance: without behavioral disturbance Qualified Codes: G30.1 - Alzheimer's disease with late onset; F02.80 - Dementia in other diseases classified elsewhere without behavioral disturbance (12) Glaucoma Status: Chronic Comment: Continue with the eyedrops Qualifiers: Glaucoma type: unspecified Laterality: bilateral Qualified Codes: H40.9 - Unspecified glaucoma (13) Hyperuricemia Status: Chronic Comment: Noted. Result Diagram: 02/06/19 0523 02/06/19 0523 Results 24hrs Laboratory Tests Test 02/05/19 17:30 02/05/19 21:25 02/05/19 21:43 02/05/19 22:01 Bedside Glucose 117 69 L 92 102 Test 02/06/19 05:23 02/06/19 08:06 02/06/19 12:23 White Blood Count 8.4 Red Blood Count 3.29 L Hemoglobin 10.5 L Hematocrit 32.5 L Mean Corpuscular Volume 98.8 Mean Corpuscular 31.9 Hemoglobin Mean Corpuscular 32.3 Hemoglobin Concent Red Cell Distribution 13.5 Width Platelet Count 288 Mean Platelet Volume 11.0 H Immature Granulocytes % 2.400 H Neutrophils % 78.1 H Lymphocytes % 10.0 L Monocytes % 7.9 Eosinophils % 1.0 Basophils % 0.6 Nucleated Red Blood 0.0 Cells % Immature Granulocytes # 0.200 H Neutrophils # 6.5 Lymphocytes # 0.8 Monocytes # 0.7 Eosinophils # 0.1 Basophils # 0.1 Nucleated Red Blood 0.0 Cells # Sodium Level 147 H Potassium Level 3.2 L Chloride Level 107 Carbon Dioxide Level 31 Anion Gap 9 Blood Urea Nitrogen 36 H Creatinine 1.55 H Est Glomerular Filtrat Rate mL/min Glucose Level 98 Calcium Level 8.9 Bedside Glucose 85 97 Subjective 24 Hr Interval Summary Free Text/Dictation She reports she is not feeling well Constitutional: no complaints Respiratory: shortness of breath Cardiovascular: no complaints Gastrointestinal: no complaints Genitourinary: no complaints Exam/Review of Systems Exam Vitals Vital Signs Date Temp Pulse Resp B/P (MAP) Pulse Ox O2 O2 Flow FiO2 Time Delivery Rate 02/06/19 Nasal 3.0 09:00 Cannula 02/06/19 98.4 61 18 125/60 97 07:59 (81) Intake and Output 02/05/19 02/05/19 02/06/19 1515:00 23:00 07:00 IntakeIntake Total 575 ml 585 ml OutputOutput Total 600 ml BalanceBalance 575 ml -15 ml Constitutional: alert, oriented Respiratory: crackles/rales (Right base crackles), diminished breath sounds (Decreased I to E ratio) Gastrointestinal: soft, nl liver, spleen, non-tender Results Results 24hrs Laboratory Tests Test 02/05/19 17:30 02/05/19 21:25 02/05/19 21:43 02/05/19 22:01 Bedside Glucose 117 69 L 92 102 Test 02/06/19 05:23 02/06/19 08:06 02/06/19 12:23 White Blood Count 8.4 Red Blood Count 3.29 L Hemoglobin 10.5 L Hematocrit 32.5 L Mean Corpuscular Volume 98.8 Mean Corpuscular 31.9 Hemoglobin Mean Corpuscular 32.3 Hemoglobin Concent Red Cell Distribution 13.5 Width Platelet Count 288 Mean Platelet Volume 11.0 H Immature Granulocytes % 2.400 H Neutrophils % 78.1 H Lymphocytes % 10.0 L Monocytes % 7.9 Eosinophils % 1.0 Basophils % 0.6 Nucleated Red Blood 0.0 Cells % Immature Granulocytes # 0.200 H Neutrophils # 6.5 Lymphocytes # 0.8 Monocytes # 0.7 Eosinophils # 0.1 Basophils # 0.1 Nucleated Red Blood 0.0 Cells # Sodium Level 147 H Potassium Level 3.2 L Chloride Level 107 Carbon Dioxide Level 31 Anion Gap 9 Blood Urea Nitrogen 36 H Creatinine 1.55 H Est Glomerular Filtrat Rate mL/min Glucose Level 98 Calcium Level 8.9 Bedside Glucose 85 97 Medications Medication Current Medications IV Flush (NS 3 ml) 3 ml PER PROTOCOL IV ; Start 02/01/19 at 05:00 Ondansetron HCl (Zofran Inj) 4 mg Q6H PRN IV NAUSEA/VOMITING; Start 02/01/19 at 05:00 Nitroglycerin (Nitroglycerin (Sl Tab) 0.4 Mg) 1 tab Q5M PRN SL .CHEST PAIN; Start 02/01/19 at 05:00 Acetaminophen (Tylenol Tab) 650 mg Q6H PRN PO .PAIN 1-3 OR TEMP Last administered on 02/03/19at 23:12; Admin Dose 650 MG; Start 02/01/19 at 05:00 Albuterol/ Ipratropium (Duoneb) 3 ml Q2H RESP THERAPY PRN HHN SHORTNESS OF BREATH Last administered on 02/02/19at 04:30; Admin Dose 3 ML; Start 02/01/19 at 05:00 Diagnostic Test (Pha) (Accu-Chek) 1 ea 02 XX ; Start 02/02/19 at 02:00 Insulin Glargine (Lantus) 10 units DAILY@2000 SC Last administered on 02/04/19at 20:49; Admin Dose 10 UNITS; Start 02/01/19 at 20:00 Ferrous Sulfate (Ferrous Sulfate (Ec)) 325 mg BID PO Last administered on 02/06/19 09:07; Admin Dose 325 MG; Start 02/01/19 at 09:00 Hydrocodone Bit/ Homatropine Methylb (Hycodan Liquid) 5 ml DAILY PRN PO COUGH Last administered on 02/04/19 21:20; Admin Dose 5 ML; Start 02/01/19 at 05:00 Levothyroxine Sodium (Synthroid) 75 mcg BEFORE BREAKFAST PO Last administered on 02/06/19 05:30; Admin Dose 75 MCG; Start 02/01/19 at 07:00 Lubiprostone (Amitiza) 24 mcg WITH BREAKFAST DINNE PO Last administered on 02/06/19 09:23; Admin Dose 24 MCG; Start 02/01/19 at 08:00 Meclizine HCl (Antivert) 25 mg TID PO Last administered on 02/06/19 13:16; Admi n Dose 25 MG; Start 02/01/19 at 09:00 Polyethylene Glycol (Miralax) 17 gm DAILY PO Last administered on 02/06/19 09:08; Admin Dose 17 GM; Start 02/01/19 at 09:00 Sotalol HCl (Betapace) 40 mg BID PO Last administered on 02/06/19 09:07; Admin Dose 40 MG; Start 02/01/19 at 09:00 Pantoprazole (Protonix Tab) 40 mg DAILY@06 PO Last administered on 02/06/19 05:30; Admin Dose 40 MG; Start 02/01/19 at 06:00 Miscellaneous Information 1 ea NOTE XX ; Start 02/01/19 at 05:30 Glucose (Glutose) 15 gm Q15M PRN PO DECREASED GLUCOSE; Start 02/01/19 at 05:30 Glucose (Glutose) 22.5 gm Q15M PRN PO DECREASED GLUCOSE; Start 02/01/19 at 05:30 Dextrose (D50w Syringe) 25 ml Q15M PRN IV DECREASED GLUCOSE Last administered on 02/04/19 06:36; Admin Dose 25 ML; Start 02/01/19 at 05:30 Dextrose (D50w Syringe) 50 ml Q15M PRN IV DECREASED GLUCOSE; Start 02/01/19 at 05:30 Glucagon (Glucagen) 1 mg Q15M PRN IM DECREASED GLUCOSE; Start 02/01/19 at 05:30 Glucose (Glutose) 15 gm Q15M PRN BUCCAL DECREASED GLUCOSE; Start 02/01/19 at 05:30 Docusate Sodium (Colace Liquid Cup) 100 mg DAILY PO Last administered on 02/06/19 09:07; Admin Dose 100 MG; Start 02/01/19 at 13:30 Patient Own Medication 1 ea HS BOTH EYES Last administered on 02/04/19 20:19; Admin Dose 1 EA; Start 02/01/19 at 21:00 Patient Own Medication 1 ea BID BOTH EYES Last administered on 02/06/19 09:37; Admin Dose 1 EA; Start 02/01/19 at 21:00 Apixaban (Eliquis) 2.5 mg BID PO Last administered on 02/06/19 09:08; Admin Dose 2.5 MG; Start 02/01/19 at 21:00 Benzonatate (Tessalon) 100 mg TID PRN PO COUGH Last administered on 02/06/19 01:08; Admin Dose 100 MG; Start 02/02/19 at 02:30 Piperacillin Sod/ Tazobactam Sod 100 ml @ 25 mls/hr Q8 IVPB Last administered on 02/06/19 13:46; Admin Dose 25 MLS/HR; Start 02/02/19 at 09:01 Vancomycin HCl (Vanco Iv Per Pharmacy) VANCOMYCIN PER PHARMACY PER PROTOCOL XX ; Start 02/02/19 at 06:30 Eye Lubricant (Refresh Plus) 1 drop Q4H PRN BOTH EYES .DRY EYES; Start 02/02/19 at 10:00 Allopurinol (Zyloprim) 100 mg DAILY PO Last administered on 02/06/19 09:08; Admin Dose 100 MG; Start 02/02/19 at 10:30 Linagliptin (Tradjenta) 5 mg DAILY PO Last administered on 02/06/19 09:08; Admin Dose 5 MG; Start 02/02/19 at 10:30 Gentamicin Sulfate (Gentamicin 0.3% Oph Drop) 1 drop Q4 RIGHT EYE Last administered on 02/06/19 13:16; Admin Dose 1 DROP; Start 02/02/19 at 13:00 Albuterol/ Ipratropium (Duoneb) 3 ml Q4H RESP THERAPY HHN Last administered on 02/06/19 04:21; Admin Dose 3 ML; Start 02/02/19 at 13:00 Vancomycin/Sodium Chloride 250 ml @ 125 mls/hr Q48H IVPB Last administered on 02/06/19 09:23; Admin Dose 125 MLS/HR; Start 02/04/19 at 09:00 Dextrose/Sodium Chloride 500 ml @ 40 mls/hr [id number] IV Last administered on 21:38; Admin Dose 40 MLS/HR; Start 02/03/19 at 13:00 Insulin Aspart (Novolog Insulin Pen) NOVOLOG *MILD* ALGORITHM AC MEALS AND BEDTIME SC Last administered on 02/05/19 11:49; Admin Dose 2 UNIT; Start 02/03/19 at 17:30 Furosemide (Lasix) 20 mg BID DIURETICS IV Last administered on 02/06/19 05:30; Admin Dose 20 MG; Start 02/05/19 at 18:00 Acetylcysteine (Mucomyst) 1 ml BID NEB Last administered on 02/05/19 20:43; Admin Dose 1 ML; Start 02/05/19 at 21:00 LUIS EDUARDO MARLEY MD Feb 06, 2019 15:03
--- NOTE | 2019-02-06 15:24 | CONS ---
Assessment/Plan Assessment/Plan Hospital Course (Demo Recall) IMP: 1.AF-being paced at this time on eliquis 2.PPM-no signs of dysfunction at this time 3.HTN 4.DM 5.sob-likley PNA with possible component of CHF-diastolic EF 60% by echo this admit 6. Hypothyroid 7. PNA by chest CT Recc: -Now on med surg -serial ecg's -Continue sotalol as tolerated only and follow QTc on sotalol -Continue abx's and f/u cx data -Follow volume status clsoely on gentle lasix diuresis -Continue bronchodilators Consultation Date/Type/Reason Admit Date/Time Feb 02, 2019 at 10:08 Initial Consult Date 02/02/19 Type of Consult Cardiology Reason for Consultation AF Requesting Provider: ANDREA KHAN NP Date/Time of Note DATE: 02/06/19 TIME: 15:19 Exam/Review of Systems Vital Signs Vitals Vital Signs Date Temp Pulse Resp B/P (MAP) Pulse Ox O2 O2 Flow FiO2 Time Delivery Rate 02/06/19 Nasal 3.0 09:00 Cannula 02/06/19 98.4 61 18 125/60 97 07:59 (81) Intake and Output 02/05/19 02/05/19 02/06/19 1515:00 23:00 07:00 IntakeIntake Total 575 ml 585 ml OutputOutput Total 600 ml BalanceBalance 575 ml -15 ml Exam Exam Review of Systems: CONSTITUTIONAL: No fevers, chills. PULMONARY: No sob CARDIOVASCULAR: No chest pain/palpitations GASTROINTESTINAL: No nausea/vomiting. GENITOURINARY: No hematuria/dysuria. MUSCULOSKELETAL: No myagias/arthalgias. PSYCHIATRIC: The patient denies depression. NEUROLOGIC: No weakness Constitutional: alert Psych: no complaints Head: normocephalic ENMT: mucosa pink and moist Neck: supple, jvd (9 cm water) Respiratory: diminished breath sounds (at bases/B) Cardiovascular: irregular rhythm Gastrointestinal: soft, non-tender Musculoskeletal: muscle tone (normal) Extremities: edema (none) Neurological: other (No focal deficits) Labs Result Diagram: 02/06/19 0523 02/06/19 0523 Results 24hrs Laboratory Tests Test 02/05/19 17:30 02/05/19 21:25 02/05/19 21:43 02/05/19 22:01 Bedside Glucose 117 69 L 92 102 Test 02/06/19 05:23 02/06/19 08:06 02/06/19 12:23 White Blood Count 8.4 Red Blood Count 3.29 L Hemoglobin 10.5 L Hematocrit 32.5 L Mean Corpuscular Volume 98.8 Mean Corpuscular 31.9 Hemoglobin Mean Corpuscular 32.3 Hemoglobin Concent Red Cell Distribution 13.5 Width Platelet Count 288 Mean Platelet Volume 11.0 H Immature Granulocytes % 2.400 H Neutrophils % 78.1 H Lymphocytes % 10.0 L Monocytes % 7.9 Eosinophils % 1.0 Basophils % 0.6 Nucleated Red Blood 0.0 Cells % Immature Granulocytes # 0.200 H Neutrophils # 6.5 Lymphocytes # 0.8 Monocytes # 0.7 Eosinophils # 0.1 Basophils # 0.1 Nucleated Red Blood 0.0 Cells # Sodium Level 147 H Potassium Level 3.2 L Chloride Level 107 Carbon Dioxide Level 31 Anion Gap 9 Blood Urea Nitrogen 36 H Creatinine 1.55 H Est Glomerular Filtrat Rate mL/min Glucose Level 98 Calcium Level 8.9 Bedside Glucose 85 97 Medications Medications Current Medications IV Flush (NS 3 ml) 3 ml PER PROTOCOL IV ; Start 02/01/19 at 05:00 Ondansetron HCl (Zofran Inj) 4 mg Q6H PRN IV NAUSEA/VOMITING; Start 02/01/19 at 05:00 Nitroglycerin (Nitroglycerin (Sl Tab) 0.4 Mg) 1 tab Q5M PRN SL .CHEST PAIN; Start 02/01/19 at 05:00 Acetaminophen (Tylenol Tab) 650 mg Q6H PRN PO .PAIN 1-3 OR TEMP Last administered on 02/03/19at 23:12; Admin Dose 650 MG; Start 02/01/19 at 05:00 Albuterol/ Ipratropium (Duoneb) 3 ml Q2H RESP THERAPY PRN HHN SHORTNESS OF BREATH Last administered on 02/02/19at 04:30; Admin Dose 3 ML; Start 02/01/19 at 05:00 Diagnostic Test (Pha) (Accu-Chek) 1 ea 02 XX ; Start 02/02/19 at 02:00 Insulin Glargine (Lantus) 10 units DAILY@2000 SC Last administered on 02/04/19 20:49; Admin Dose 10 UNITS; Start 02/01/19 at 20:00 Ferrous Sulfate (Ferrous Sulfate (Ec)) 325 mg BID PO Last administered on 02/06/19 09:07; Admin Dose 325 MG; Start 02/01/19 at 09:00 Hydrocodone Bit/ Homatropine Methylb (Hycodan Liquid) 5 ml DAILY PRN PO COUGH Last administered on 02/04/19 21:20; Admin Dose 5 ML; Start 02/01/19 at 05:00 Levothyroxine Sodium (Synthroid) 75 mcg BEFORE BREAKFAST PO Last administered on 02/06/19 05:30; Admin Dose 75 MCG; Start 02/01/19 at 07:00 Lubiprostone (Amitiza) 24 mcg WITH BREAKFAST DINNE PO Last administered on 02/06/19 09:23; Admin Dose 24 MCG; Start 02/01/19 at 08:00 Meclizine HCl (Antivert) 25 mg TID PO Last administered on 02/06/19 13:16; Admin Dose 25 MG; Start 02/01/19 at 09:00 Polyethylene Glycol (Miralax) 17 gm DAILY PO Last administered on 02/06/19 09:08; Admin Dose 17 GM; Start 02/01/19 at 09:00 Sotalol HCl (Betapace) 40 mg BID PO Last administered on 02/06/19 09:07; Admin Dose 40 MG; Start 02/01/19 at 09:00 Pantoprazole (Protonix Tab) 40 mg DAILY@06 PO Last administered on 02/06/19 05:30; Admin Dose 40 MG; Start 02/01/19 at 06:00 Miscellaneous Information 1 ea NOTE XX ; Start 02/01/19 at 05:30 Glucose (Glutose) 15 gm Q15M PRN PO DECREASED GLUCOSE; Start 02/01/19 at 05:30 Glucose (Glutose) 22.5 gm Q15M PRN PO DECREASED GLUCOSE; Start 02/01/19 at 05:30 Dextrose (D50w Syringe) 25 ml Q15M PRN IV DECREASED GLUCOSE Last administered on 02/04/19 06:36; Admin Dose 25 ML; Start 02/01/19 at 05:30 Dextrose (D50w Syringe) 50 ml Q15M PRN IV DECREASED GLUCOSE; Start 02/01/19 at 05:30 Glucagon (Glucagen) 1 mg Q15M PRN IM DECREASED GLUCOSE; Start 02/01/19 at 05:30 Glucose (Glutose) 15 gm Q15M PRN BUCCAL DECREASED GLUCOSE; Start 02/01/19 at 05:30 Docusate Sodium (Colace Liquid Cup) 100 mg DAILY PO Last administered on 02/06/19 09:07; Admin Dose 100 MG; Start 02/01/19 at 13:30 Patient Own Medication 1 ea HS BOTH EYES Last administered on 02/04/19 20:19; Admin Dose 1 EA; Start 02/01/19 at 21:00 Patient Own Medication 1 ea BID BOTH EYES Last administered on 02/06/19 09:37; Admin Dose 1 EA; Start 02/01/19 at 21:00 Apixaban (Eliquis) 2.5 mg BID PO Last administered on 02/06/19 09:08; Admin Dose 2.5 MG; Start 02/01/19 at 21:00 Benzonatate (Tessalon) 100 mg TID PRN PO COUGH Last administered on 02/06/19 01:08; Admin Dose 100 MG; Start 02/02/19 at 02:30 Piperacillin Sod/ Tazobactam Sod 100 ml @ 25 mls/hr Q8 IVPB Last administered on 02/06/19 13:46; Admin Dose 25 MLS/HR; Start 02/02/19 at 09:01 Vancomycin HCl (Vanco Iv Per Pharmacy) VANCOMYCIN PER PHARMACY PER PROTOCOL XX ; Start 02/02/19 at 06:30 Eye Lubricant (Refresh Plus) 1 drop Q4H PRN BOTH EYES .DRY EYES; Start 02/02/19 at 10:00 Allopurinol (Zyloprim) 100 mg DAILY PO Last administered on 02/06/19 09:08; Admin Dose 100 MG; Start 02/02/19 at 10:30 Linagliptin (Tradjenta) 5 mg DAILY PO Last administered on 02/06/19 09:08; Admin Dose 5 MG; Start 02/02/19 at 10:30 Gentamicin Sulfate (Gentamicin 0.3% Oph Drop) 1 drop Q4 RIGHT EYE Last administered on 02/06/19 13:16; Admin Dose 1 DROP; Start 02/02/19 at 13:00 Albuterol/ Ipratropium (Duoneb) 3 ml Q4H RESP THERAPY HHN Last administered on 02/06/19 04:21; Admin Dose 3 ML; Start 02/02/19 at 13:00 Vancomycin/Sodium Chloride 250 ml @ 125 mls/hr Q48H IVPB Last administered on 02/06/19 09:23; Admin Dose 125 MLS/HR; Start 02/04/19 at 09:00 Dextrose/Sodium Chloride 500 ml @ 40 mls/hr [id number] IV Last administered on 02/05/19 21:38; Admin Dose 40 MLS/HR; Start 02/03/19 at 13:00 Insulin Aspart (Novolog Insulin Pen) NOVOLOG *MILD* ALGORITHM AC MEALS AND BEDTIME SC Last administered on 02/05/19 11:49; Admin Dose 2 UNIT; Start 02/03/19 at 17:30 Furosemide (Lasix) 20 mg BID DIURETICS IV Last administered on 02/06/19 05:30; Admin Dose 20 MG; Start 02/05/19 at 18:00 Acetylcysteine (Mucomyst) 1 ml BID NEB Last administered on 02/05/19 20:43; Admin Dose 1 ML; Start 02/05/19 at 21:00 Tiotropium [place] (Spiriva) 1 inh DAILY INH ; Start 02/06/19 at 15:30; Status SHAWANDA DANIELS Feb 06, 2019 15:24
[2019-02-06] MEDS: DEXTROSE 5%-0.45% NACL 500 ML IV SCH (16:00)
[2019-02-06] MEDS: TIOTROPIUM 18 MCG CAPSULE INHA DEV INH SCH (17:50)
--- NOTE | 2019-02-06 17:58 | CONS ---
Assessment/Plan Assessment/Plan Hospital Course (Demo Recall) 1. ckd 2. acute CHF, acute on chronic diastolic CHF, ECHO showed EF 60% with stage II diastoilc dysfunction 3. H/o HTN 4. H/o HL 5. Anemia of CKD 6. H/o history of CHF, atrial fibrillation, diabetes, hypothyroidism, CKD, GI bleed, pacemaker, 7 Pneumonia 8 resp failure likely secondary to CHF/pneumonia 9 hypokalemia plan kcl Consultation Date/Type/Reason Admit Date/Time Feb 02, 2019 at 10:08 Initial Consult Date RENAL weakness no sob poor appetite Requesting Provider: ANDREA KHAN NP Date/Time of Note DATE: 02/06/19 TIME: 17:56 Exam/Review of Systems Exam Vitals Vital Signs Date Temp Pulse Resp B/P (MAP) Pulse Ox O2 O2 Flow FiO2 Time Delivery Rate 02/06/19 97.9 56 18 112/61 96 Nasal 14:00 (78) Cannula 02/06/19 3.0 09:00 Intake and Output 02/05/19 02/05/19 02/06/19 1515:00 23:00 07:00 IntakeIntake Total 575 ml 585 ml OutputOutput Total 600 ml BalanceBalance 575 ml -15 ml Respiratory: diminished breath sounds Cardiovascular: irregular rhythm Gastrointestinal: soft, bowel sounds (+) Extremities: No edema Neurological: other (sleepy) Results Result Diagram: 02/06/19 0523 02/06/19 0523 Results 24hrs Laboratory Tests Test 02/05/19 21:25 02/05/19 21:43 02/05/19 22:01 02/06/19 05:23 Bedside Glucose 69 L 92 102 White Blood Count 8.4 Red Blood Count 3.29 L Hemoglobin 10.5 L Hematocrit 32.5 L Mean Corpuscular Volume 98.8 Mean Corpuscular 31.9 Hemoglobin Mean Corpuscular 32.3 Hemoglobin Concent Red Cell Distribution 13.5 Width Platelet Count 288 Mean Platelet Volume 11.0 H Immature Granulocytes % 2.400 H Neutrophils % 78.1 H Lymphocytes % 10.0 L Monocytes % 7.9 Eosinophils % 1.0 Basophils % 0.6 Nucleated Red Blood 0.0 Cells % Immature Granulocytes # 0.200 H Neutrophils # 6.5 Lymphocytes # 0.8 Monocytes # 0.7 Eosinophils # 0.1 Basophils # 0.1 Nucleated Red Blood 0.0 Cells # Sodium Level 147 H Potassium Level 3.2 L Chloride Level 107 Carbon Dioxide Level 31 Anion Gap 9 Blood Urea Nitrogen 36 H Creatinine 1.55 H Est Glomerular Filtrat Rate mL/min Glucose Level 98 Calcium Level 8.9 Test 02/06/19 08:06 02/06/19 12:23 02/06/19 17:47 Bedside Glucose 85 97 128 Medications Medication Current Medications IV Flush (NS 3 ml) 3 ml PER PROTOCOL IV ; Start 02/01/19 at 05:00 Ondansetron HCl (Zofran Inj) 4 mg Q6H PRN IV NAUSEA/VOMITING Last administered on 02/06/19 16:21; Admin Dose 4 MG; Start 02/01/19 at 05:00 Nitroglycerin (Nitroglycerin (Sl Tab) 0.4 Mg) 1 tab Q5M PRN SL .CHEST PAIN; Start 02/01/19 at 05:00 Acetaminophen (Tylenol Tab) 650 mg Q6H PRN PO .PAIN 1-3 OR TEMP Last administered on 02/03/19 23:12; Admin Dose 650 MG; Start 02/01/19 at 05:00 Albuterol/ Ipratropium (Duoneb) 3 ml Q2H RESP THERAPY PRN HHN SHORTNESS OF BREATH Last administered on 02/02/19 04:30; Admin Dose 3 ML; Start 02/01/19 at 05:00 Diagnostic Test (Pha) (Accu-Chek) 1 ea 02 XX ; Start 02/02/19 at 02:00 Insulin Glargine (Lantus) 10 units DAILY@2000 SC Last administered on 02/04/19 20:49; Admin Dose 10 UNITS; Start 02/01/19 at 20:00 Ferrous Sulfate (Ferrous Sulfate (Ec)) 325 mg BID PO Last administered on 02/06/19 09:07; Admin Dose 325 MG; Start 02/01/19 at 09:00 Hydrocodone Bit/ Homatropine Methylb (Hycodan Liquid) 5 ml DAILY PRN PO COUGH Last administered on 02/04/19 21:20; Admin Dose 5 ML; Start 02/01/19 at 05:00 Levothyroxine Sodium (Synthroid) 75 mcg BEFORE BREAKFAST PO Last administered on 02/06/19 05:30; Admin Dose 75 MCG; Start 02/01/19 at 07:00 Lubiprostone (Amitiza) 24 mcg WITH BREAKFAST DINNE PO Last administered on 02/06/19at 17:50; Admin Dose 24 MCG; Start 02/01/19 at 08:00 Meclizine HCl (Antivert) 25 mg TID PO Last administered on 02/06/19at 13:16; Admin Dose 25 MG; Start 02/01/19 at 09:00 Polyethylene Glycol (Miralax) 17 gm DAILY PO Last administered on 02/06/19at 09:08; Admin Dose 17 GM; Start 02/01/19 at 09:00 Sotalol HCl (Betapace) 40 mg BID PO Last administered on 02/06/19 09:07; Admin Dose 40 MG; Start 02/01/19 at 09:00 Pantoprazole (Protonix Tab) 40 mg DAILY@06 PO Last administered on 02/06/19 05:30; Admin Dose 40 MG; Start 02/01/19 at 06:00 Miscellaneous Information 1 ea NOTE XX ; Start 02/01/19 at 05:30 Glucose (Glutose) 15 gm Q15M PRN PO DECREASED GLUCOSE; Start 02/01/19 at 05:30 Glucose (Glutose) 22.5 gm Q15M PRN PO DECREASED GLUCOSE; Start 02/01/19 at 05:30 Dextrose (D50w Syringe) 25 ml Q15M PRN IV DECREASED GLUCOSE Last administered on 02/04/19at 06:36; Admin Dose 25 ML; Start 02/01/19 at 05:30 Dextrose (D50w Syringe) 50 ml Q15M PRN IV DECREASED GLUCOSE; Start 02/01/19 at 05:30 Glucagon (Glucagen) 1 mg Q15M PRN IM DECREASED GLUCOSE; Start 02/01/19 at 05:30 Glucose (Glutose) 15 gm Q15M PRN BUCCAL DECREASED GLUCOSE; Start 02/01/19 at 05:30 Docusate Sodium (Colace Liquid Cup) 100 mg DAILY PO Last administered on 02/06/19at 09:07; Admin Dose 100 MG; Start 02/01/19 at 13:30 Patient Own Medication 1 ea HS BOTH EYES Last administered on 02/04/19at 20:19; Admin Dose 1 EA; Start 02/01/19 at 21:00 Patient Own Medication 1 ea BID BOTH EYES Last administered on 02/06/19 09:37; Admin Dose 1 EA; Start 02/01/19 at 21:00 Apixaban (Eliquis) 2.5 mg BID PO Last administered on 02/06/19 09:08; Admin Dose 2.5 MG; Start 02/01/19 at 21:00 Benzonatate (Tessalon) 100 mg TID PRN PO COUGH Last administered on 02/06/19 01:08; Admin Dose 100 MG; Start 02/02/19 at 02:30 Piperacillin Sod/ Tazobactam Sod 100 ml @ 25 mls/hr Q8 IVPB Last administered on 02/06/19 13:46; Admin Dose 25 MLS/HR; Start 02/02/19 at 09:01 Vancomycin HCl (Vanco Iv Per Pharmacy) VANCOMYCIN PER PHARMACY PER PROTOCOL XX ; Start 02/02/19 at 06:30 Eye Lubricant (Refresh Plus) 1 drop Q4H PRN BOTH EYES .DRY EYES; Start 02/02/19 at 10:00 Allopurinol (Zyloprim) 100 mg DAILY PO Last administered on 02/06/19 09:08; Ad min Dose 100 MG; Start 02/02/19 at 10:30 Linagliptin (Tradjenta) 5 mg DAILY PO Last administered on 02/06/19 09:08; Admin Dose 5 MG; Start 02/02/19 at 10:30 Gentamicin Sulfate (Gentamicin 0.3% Oph Drop) 1 drop Q4 RIGHT EYE Last administered on 02/06/19 17:50; Admin Dose 1 DROP; Start 02/02/19 at 13:00 Albuterol/ Ipratropium (Duoneb) 3 ml Q4H RESP THERAPY HHN Last administered on 02/06/19 04:21; Admin Dose 3 ML; Start 02/02/19 at 13:00 Vancomycin/Sodium Chloride 250 ml @ 125 mls/hr Q48H IVPB Last administered on 02/06/19 09:23; Admin Dose 125 MLS/HR; Start 02/04/19 at 09:00 Dextrose/Sodium Chloride 500 ml @ 40 mls/hr [id number] IV Last administered on 02/05/19 21:38; Admin Dose 40 MLS/HR; Start 02/03/19 at 13:00 Insulin Aspart (Novolog Insulin Pen) NOVOLOG *MILD* ALGORITHM AC MEALS AND BEDT ESTEFANÍA SC Last administered on 02/05/19 11:49; Admin Dose 2 UNIT; Start 02/03/19 at 17:30 Furosemide (Lasix) 20 mg BID DIURETICS IV Last administered on 02/06/19 17:50; Admin Dose 20 MG; Start 02/05/19 at 18:00 Acetylcysteine (Mucomyst) 1 ml BID NEB Last administered on 02/05/19 20:43; Admin Dose 1 ML; Start 02/05/19 at 21:00 Tiotropium [place] (Spiriva) 1 inh DAILY INH Last administered on 02/06/19 17:50; Admin Dose 1 INH; Start 02/06/19 at 17:00 HERSON DAVIS MD Feb 06, 2019 17:58
[2019-02-06 20:00] VITALS: BP 116/56; PULSE 60; RESP 19
[2019-02-06] MEDS: POTASSIUM CHLORIDE 100 ML IVPB SCH (20:23)
[2019-02-06] MEDS: INSULIN GLARGINE [LANTus] (100 UNITS/ML) SYG SC SCH (20:24)
[2019-02-07] MEDS: GENTAMICIN 0.3% 5 ML OPH RIGHT EYE SCH ×6 (00:14→20:54)
[2019-02-07] MEDS: POTASSIUM CHLORIDE 100 ML IVPB SCH (00:14)
[2019-02-07] MEDS: ALBUTEROL/IPRATROPIUM (NEB) 3 ML AMP HHN SCH ×6 (00:39→20:10)
[2019-02-07] MEDS: ACCU-CHEK XX SCH (01:23)
[2019-02-07 02:00] VITALS: BP 133/63; PULSE 63; RESP 18
[2019-02-07] MEDS: DEXTROSE 5%-0.45% NACL 500 ML IV SCH ×3 (04:24→22:46)
[2019-02-07] MEDS: PANTOPRAZOLE (EC) 40 MG TAB PO SCH (05:49)
[2019-02-07] MEDS: PIPER-TAZO 3.375 GM IV (PMX) 100 ML IVPB SCH ×3 (05:49→22:44)
[2019-02-07] MEDS: FUROSEMIDE 20 MG INJ IV SCH ×2 (05:54→17:55)
[2019-02-07] MEDS: LEVOTHYROXINE 75 MCG TAB PO SCH (06:00)
[2019-02-07] MEDS: INSULIN ASPART [NOVOLOG] 3 ML PEN SC SCH ×4 (07:30→20:54)
[2019-02-07] MEDS: PATIENT'S OWN MEDICATION BOTH EYES SCH ×4 (08:16→20:52)
[2019-02-07] MEDS: DEXTROSE 50% 50 ML SYRINGE IV PRN (08:24)
[2019-02-07 08:26] VITALS: BP 115/56; PULSE 65; RESP 17
[2019-02-07] MEDS: ACETYLCYSTEINE 20% 4 ML VIAL NEB SCH ×2 (08:52→20:10)
[2019-02-07] MEDS: POLYETHYLENE GLYCOL 17 GM PACKET PO SCH (09:03)
[2019-02-07] MEDS: DOCUSATE SODIUM 10 MG/ML (10ML CUP) PO SCH (09:03)
[2019-02-07] MEDS: TIOTROPIUM 18 MCG CAPSULE INHA DEV INH SCH (09:04)
[2019-02-07] MEDS: ALLOPURINOL 100 MG TAB PO SCH (09:04)
[2019-02-07] MEDS: FERROUS SULFATE (EC) 325 MG TAB PO SCH ×2 (09:04→20:53)
[2019-02-07] MEDS: MECLIZINE 25 MG TAB PO SCH ×3 (09:04→20:52)
[2019-02-07] MEDS: LINAGLIPTIN 5 MG TABLET PO SCH (09:04)
[2019-02-07] MEDS: APIXABAN 5 MG TABLET PO SCH ×2 (09:05→20:53)
[2019-02-07] MEDS: SOTALOL 80 MG TAB PO SCH ×2 (09:06→20:54)
[2019-02-07] MEDS: LUBIPROSTONE 24 MCG CAP PO SCH ×2 (09:09→17:54)
--- NOTE | 2019-02-07 11:12 | CONS ---
Consult Date/Type/Reason Admit Date/Time Feb 02, 2019 at 10:08 Initial Consult Date 02/02/19 Type of Consult Pulmonary Requesting Provider: ANDREA KHAN NP Date/Time of Note DATE: 02/07/19 TIME: 11:12 Subjective Better today. Sitting up in chair on nasal cannula O2. Objective Vital Signs Date Temp Pulse Resp B/P (MAP) Pulse Ox O2 O2 Flow FiO2 Time Delivery Rate 02/07/19 61 18 98 Nasal 2.0 08:55 Cannula 02/07/19 98.3 115/56 08:26 (75) Intake and Output 02/06/19 02/06/19 02/07/19 1515:00 23:00 07:00 IntakeIntake Total 250 ml 300 ml 520 ml OutputOutput Total 400 ml 200 ml BalanceBalance 250 ml -100 ml 320 ml Exam GENERAL: Frail elderly lady comfortable at rest VITAL SIGNS: per chart NECK: Supple. No JVD or lymphadenopathy. CARDIAC EXAM: S1, S2. No added sounds or murmurs. CHEST: Diminished air entry bilaterally ABDOMEN: Soft, nontender. No guarding or rebound. EXTREMITIES: No cyanosis, clubbing or edema. NEUROLOGIC: Generalized weakness. No focal deficits. Vent Setting Fraction of Inspired Oxygen pe: 30 Results/Medications Result Diagram: 02/07/19 0437 02/07/19436 Results 24 hrs Laboratory Tests Test 02/06/19 12:23 02/06/19 17:47 02/06/19 20:20 02/07/19 04:37 Bedside Glucose 97 128 169 White Blood Count 8.2 Red Blood Count 3.07 L Hemoglobin 9.9 L Hematocrit 30.2 L Mean Corpuscular 98.4 Volume Mean Corpuscular 32.2 Hemoglobin Mean Corpuscular 32.8 Hemoglobin Concent Red Cell 13.8 Distribution Width Platelet Count 271 Mean Platelet Volume 11.0 H Immature 2.100 H Granulocytes % Neutrophils % 76.5 Lymphocytes % 12.5 L Monocytes % 8.0 Eosinophils % 0.4 Basophils % 0.5 Nucleated Red Blood 0.0 Cells % Immature 0.170 H Granulocytes # Neutrophils # 6.2 Lymphocytes # 1.0 Monocytes # 0.7 Eosinophils # 0.0 Basophils # 0.0 Nucleated Red Blood 0.0 Cells # Sodium Level 146 H Potassium Level 3.5 Chloride Level 108 Carbon Dioxide Level 30 Anion Gap 8 Blood Urea Nitrogen 39 H Creatinine 1.95 H Est Glomerular Filtrat Rate mL/min Glucose Level 81 Calcium Level 8.3 L Phosphorus Level 3.5 Magnesium Level 1.8 Test 02/07/19 08:04 02/07/19 08:19 02/07/19 08:43 02/07/19 09:01 Bedside Glucose 61 L 59 L 199 197 Medications Current Medications IV Flush (NS 3 ml) 3 ml PER PROTOCOL IV ; Start 02/01/19 at 05:00 Ondansetron HCl (Zofran Inj) 4 mg Q6H PRN IV NAUSEA/VOMITING Last administered on 02/06/19 16:21; Admin Dose 4 MG; Start 02/01/19 at 05:00 Nitroglycerin (Nitroglycerin (Sl Tab) 0.4 Mg) 1 tab Q5M PRN SL .CHEST PAIN; Start 02/01/19 at 05:00 Acetaminophen (Tylenol Tab) 650 mg Q6H PRN PO .PAIN 1-3 OR TEMP Last administered on 02/03/19 23:12; Admin Dose 650 MG; Start 02/01/19 at 05:00 Albuterol/ Ipratropium (Duoneb) 3 ml Q2H RESP THERAPY PRN HHN SHORTNESS OF BREATH Last administered on 02/02/19 04:30; Admin Dose 3 ML; Start 02/01/19 at 05:00 Diagnostic Test (Pha) (Accu-Chek) 1 ea 02 XX ; Start 02/02/19 at 02:00 Insulin Glargine (Lantus) 10 units DAILY@2000 SC Last administered on 02/06/19 20:24; Admin Dose 10 UNITS; Start 02/01/19 at 20:00 Ferrous Sulfate (Ferrous Sulfate (Ec)) 325 mg BID PO Last administered on 02/07/19 09:04; Admin Dose 325 MG; Start 02/01/19 at 09:00 Hydrocodone Bit/ Homatropine Methylb (Hycodan Liquid) 5 ml DAILY PRN PO COUGH Last administered on 02/04/19 21:20; Admin Dose 5 ML; Start 02/01/19 at 05:00 Levothyroxine Sodium (Synthroid) 75 mcg BEFORE BREAKFAST PO Last administered on 02/07/19 06:00; Admin Dose 75 MCG; Start 02/01/19 at 07:00 Lubiprostone (Amitiza) 24 mcg WITH BREAKFAST DINNE PO Last administered on 02/07/19 09:09; Admin Dose 24 MCG; Start 02/01/19 at 08:00 Meclizine HCl (Antivert) 25 mg TID PO Last administered on 02/07/19 09:04; Admin Dose 25 MG; Start 02/01/19 at 09:00 Polyethylene Glycol (Miralax) 17 gm DAILY PO Last administered on 02/07/19 09:03; Admin Dose 17 GM; Start 02/01/19 at 09:00 Sotalol HCl (Betapace) 40 mg BID PO Last administered on 02/07/19 09:06; Admin Dose 40 MG; Start 02/01/19 at 09:00 Pantoprazole (Protonix Tab) 40 mg DAILY@06 PO Last administered on 02/07/19 05:49; Admin Dose 40 MG; Start 02/01/19 at 06:00 Miscellaneous Information 1 ea NOTE XX ; Start 02/01/19 at 05:30 Glucose (Glutose) 15 gm Q15M PRN PO DECREASED GLUCOSE; Start 02/01/19 at 05:30 Glucose (Glutose) 22.5 gm Q15M PRN PO DECREASED GLUCOSE; Start 02/01/19 at 05:30 Dextrose (D50w Syringe) 25 ml Q15M PRN IV DECREASED GLUCOSE Last administered on 02/07/19 08:24; Admin Dose 25 ML; Start 02/01/19 at 05:30 Dextrose (D50w Syringe) 50 ml Q15M PRN IV DECREASED GLUCOSE; Start 02/01/19 at 05:30 Glucagon (Glucagen) 1 mg Q15M PRN IM DECREASED GLUCOSE; Start 02/01/19 at 05:30 Glucose (Glutose) 15 gm Q15M PRN BUCCAL DECREASED GLUCOSE; Start 02/01/19 at 05:30 Docusate Sodium (Colace Liquid Cup) 100 mg DAILY PO Last administered on 02/07/19 09:03; Admin Dose 100 MG; Start 02/01/19 at 13:30 Patient Own Medication 1 ea HS BOTH EYES Last administered on 02/06/19at 20:31; Admin Dose 1 EA; Start 02/01/19 at 21:00 Patient Own Medication 1 ea BID BOTH EYES Last administered on 02/06/19 20:31; Admin Dose 1 EA; Start 02/01/19 at 21:00 Apixaban (Eliquis) 2.5 mg BID PO Last administered on 02/07/19 09:05; Admin Dose 2.5 MG; Start 02/01/19 at 21:00 Benzonatate (Tessalon) 100 mg TID PRN PO COUGH Last administered on 02/06/19 01:08; Admin Dose 100 MG; Start 02/02/19 at 02:30 Piperacillin Sod/ Tazobactam Sod 100 ml @ 25 mls/hr Q8 IVPB Last administered on 02/07/19 05:49; Admin Dose 25 MLS/HR; Start 02/02/19 at 09:01 Vancomycin HCl (Vanco Iv Per Pharmacy) VANCOMYCIN PER PHARMACY PER PROTOCOL XX ; Start 02/02/19 at 06:30 Eye Lubricant (Refresh Plus) 1 drop Q4H PRN BOTH EYES .DRY EYES; Start 02/02/19 at 10:00 Allopurinol (Zyloprim) 100 mg DAILY PO Last administered on 02/07/19 09:04; Admin Dose 100 MG; Start 02/02/19 at 10:30 Linagliptin (Tradjenta) 5 mg DAILY PO Last administered on 02/07/19 09:04; Admin Dose 5 MG; Start 02/02/19 at 10:30 Gentamicin Sulfate (Gentamicin 0.3% Oph Drop) 1 drop Q4 RIGHT EYE Last administered on 02/07/19 09:03; Admin Dose 1 DROP; Start 02/02/19 at 13:00 Albuterol/ Ipratropium (Duoneb) 3 ml Q4H RESP THERAPY HHN Last administered on 02/07/19 08:52; Admin Dose 3 ML; Start 02/02/19 at 13:00 Vancomycin/Sodium Chloride 250 ml @ 125 mls/hr Q48H IVPB Last administered on 02/06/19 09:23; Admin Dose 125 MLS/HR; Start 02/04/19 at 09:00 Dextrose/Sodium Chloride 500 ml @ 40 mls/hr [id number] IV Last administered on 02/05/19 21:38; Admin Dose 40 MLS/HR; Start 02/03/19 at 13:00 Insulin Aspart (Novolog Insulin Pen) NOVOLOG *MILD* ALGORITHM AC MEALS AND BEDTIME SC Last administered on 02/05/19at 11:49; Admin Dose 2 UNIT; Start 02/03/19 at 17:30 Furosemide (Lasix) 20 mg BID DIURETICS IV Last administered on 02/06/19at 17:50; Admin Dose 20 MG; Start 02/05/19 at 18:00 Acetylcysteine (Mucomyst) 1 ml BID NEB Last administered on 02/07/19at 08:52; Ad min Dose 1 ML; Start 02/05/19 at 21:00 Tiotropium [place] (Spiriva) 1 inh DAILY INH Last administered on 02/07/19at 09:04; Admin Dose 1 INH; Start 02/06/19 at 17:00 Assessment/Plan Hospital Course (Demo Recall) Assessment 1. Acute hypoxemic respiratory failure aspiration versus community-acquired pneumonia 2. Encephalopathy toxic metabolic 3. Renal insufficiency 4. History of diabetes mellitus 5. history of chronic congestive cardiac failure and atrial fibrillation Recommendations 1. Speech therapy evaluation aspiration precautions 2. Supplemental O2 decrease as tolerated 3. Continue current antibiotics Consider DC planning family state patient has home O2. BERNARD MILLER MD, [facility] Feb 07, 2019 11:12
--- NOTE | 2019-02-07 13:43 | PN ---
Date/Time of Note Date/Time of Note DATE: 02/07/19 TIME: 13:41 Assessment/Plan VTE Prophylaxis Risk score (from [facility])>0 risk: 8 SCD applied (from [facility]): Yes Pharmacological prophylaxis: heparin Lines/Catheters IV C[facility]ter Type (from [facility]): Peripheral IV Urinary Cath still in place: No Assessment/Plan Problems: (1) Right lower lobe pneumonia Status: Acute Comment: On antibiotics and appears to be improving slowly. Qualifiers: Pneumonia type: aspiration pneumonia Aspiration pneumonia type: unspecified Qualified Codes: J69.0 - Pneumonitis due to inhalation of food and vomit (2) At risk for aspiration Status: Chronic Comment: Speech therapy to follow up with the patient tomorrow to reevaluate how she is doing. I believe she probably has actually improved (3) Centrilobular emphysema Status: Chronic Comment: On full treatment at this time (4) Hyperuricemia Status: Chronic Comment: On allopurinol treatment at low-dose (5) Paroxysmal atrial fibrillation Status: Acute Comment: Anticoagulated. Presently in normal sinus rhythm. Continue current treatment protocol (6) Chronic kidney disease, stage 2, mildly decreased GFR Status: Chronic Comment: Noted. Patient is not taking p.o. well and she is already underweight. And liberalize her diet just a little bit (7) Grade II diastolic dysfunction Status: Chronic Comment: Noted. Control blood pressure and pulse rate (8) Pacemaker Status: Chronic Comment: Stable and operational Result Diagram: 02/07/19 0437 [id number]/07/19436 Results 24hrs Laboratory Tests Test 02/06/19 17:47 02/06/19 20:20 02/07/19 04:37 02/07/19 08:04 Bedside Glucose 128 169 61 L White Blood Count 8.2 Red Blood Count 3.07 L Hemoglobin 9.9 L Hematocrit 30.2 L Mean Corpuscular 98.4 Volume Mean Corpuscular 32.2 Hemoglobin Mean Corpuscular 32.8 Hemoglobin Concent Red Cell 13.8 Distribution Width Platelet Count 271 Mean Platelet Volume 11.0 H Immature 2.100 H Granulocytes % Neutrophils % 76.5 Lymphocytes % 12.5 L Monocytes % 8.0 Eosinophils % 0.4 Basophils % 0.5 Nucleated Red Blood 0.0 Cells % Immature 0.170 H Granulocytes # Neutrophils # 6.2 Lymphocytes # 1.0 Monocytes # 0.7 Eosinophils # 0.0 Basophils # 0.0 Nucleated Red Blood 0.0 Cells # Sodium Level 146 H Potassium Level 3.5 Chloride Level 108 Carbon Dioxide Level 30 Anion Gap 8 Blood Urea Nitrogen 39 H Creatinine 1.95 H Est Glomerular Filtrat Rate mL/min Glucose Level 81 Calcium Level 8.3 L Phosphorus Level 3.5 Magnesium Level 1.8 Test 02/07/19 08:19 02/07/19 08:43 02/07/19 09:01 02/07/19 12:11 Bedside Glucose 59 L 199 197 175 Subjective 24 Hr Interval Summary Free Text/Dictation She reports that she feels poorly. On questioning this is primarily a respira tory issue Constitutional: no complaints (Denies fever chills or sweats) Respiratory: shortness of breath Cardiovascular: no complaints Gastrointestinal: no complaints Genitourinary: no complaints Exam/Review of Systems Exam Vitals Vital Signs Date Temp Pulse Resp B/P (MAP) Pulse Ox O2 O2 Flow FiO2 Time Delivery Rate 02/07/19 61 18 98 Nasal 2.0 08:55 Cannula 02/07/19 98.3 115/56 08:26 (75) Intake and Output 02/06/19 02/06/19 02/07/19 1515:00 23:00 07:00 IntakeIntake Total 250 ml 300 ml 520 ml OutputOutput Total 400 ml 200 ml BalanceBalance 250 ml -100 ml 320 ml Exam Asthenic female moving slowly Neck: supple, non-tender Respiratory: clear to auscultation, normal air movement Cardiovascular: regular rate and rhythm, nl pulses Gastrointestinal: soft, nl liver, spleen, non-tender Results Results 24hrs Laboratory Tests Test 02/06/19 17:47 02/06/19 20:20 02/07/19 04:37 02/07/19 08:04 Bedside Glucose 128 169 61 L White Blood Count 8.2 Red Blood Count 3.07 L Hemoglobin 9.9 L Hematocrit 30.2 L Mean Corpuscular 98.4 Volume Mean Corpuscular 32.2 Hemoglobin Mean Corpuscular 32.8 Hemoglobin Concent Red Cell 13.8 Distribution Width Platelet Count 271 Mean Platelet Volume 11.0 H Immature 2.100 H Granulocytes % Neutrophils % 76.5 Lymphocytes % 12.5 L Monocytes % 8.0 Eosinophils % 0.4 Basophils % 0.5 Nucleated Red Blood 0.0 Cells % Immature 0.170 H Granulocytes # Neutrophils # 6.2 Lymphocytes # 1.0 Monocytes # 0.7 Eosinophils # 0.0 Basophils # 0.0 Nucleated Red Blood 0.0 Cells # Sodium Level 146 H Potassium Level 3.5 Chloride Level 108 Carbon Dioxide Level 30 Anion Gap 8 Blood Urea Nitrogen 39 H Creatinine 1.95 H Est Glomerular Filtrat Rate mL/min Glucose Level 81 Calcium Level 8.3 L Phosphorus Level 3.5 Magnesium Level 1.8 Test 02/07/19 08:19 02/07/19 08:43 02/07/19 09:01 02/07/19 12:11 Bedside Glucose 59 L 199 197 175 Medications Medication Current Medications IV Flush (NS 3 ml) 3 ml PER PROTOCOL IV ; Start 02/01/19 at 05:00 Ondansetron HCl (Zofran Inj) 4 mg Q6H PRN IV NAUSEA/VOMITING Last administered on 02/06/19at 16:21; Admin Dose 4 MG; Start 02/01/19 at 05:00 Nitroglycerin (Nitroglycerin (Sl Tab) 0.4 Mg) 1 tab Q5M PRN SL .CHEST PAIN; Start 02/01/19 at 05:00 Acetaminophen (Tylenol Tab) 650 mg Q6H PRN PO .PAIN 1-3 OR TEMP Last administered on 02/03/19at 23:12; Admin Dose 650 MG; Start 02/01/19 at 05:00 Albuterol/ Ipratropium (Duoneb) 3 ml Q2H RESP THERAPY PRN HHN SHORTNESS OF BREATH Last administered on 02/02/19at 04:30; Admin Dose 3 ML; Start 02/01/19 at 05:00 Diagnostic Test (Pha) (Accu-Chek) 1 ea 02 XX ; Start 02/02/19 at 02:00 Ferrous Sulfate (Ferrous Sulfate (Ec)) 325 mg BID PO Last administered on 02/07/19at 09:04; Admin Dose 325 MG; Start 02/01/19 at 09:00; Stop 03/03/19 at 08:59 Hydrocodone Bit/ Homatropine Methylb (Hycodan Liquid) 5 ml DAILY PRN PO COUGH Last administered on 02/04/19at 21:20; Admin Dose 5 ML; Start 02/01/19 at 05:00 Levothyroxine Sodium (Synthroid) 75 mcg BEFORE BREAKFAST PO Last administered on 02/07/19 06:00; Admin Dose 75 MCG; Start 02/01/19 at 07:00 Lubiprostone (Amitiza) 24 mcg WITH BREAKFAST DINNE PO Last administered on 02/07/19 09:09; Admin Dose 24 MCG; Start 02/01/19 at 08:00 Meclizine HCl (Antivert) 25 mg TID PO Last administered on 02/07/19 12:40; Admin Dose 25 MG; Start 02/01/19 at 09:00 Polyethylene Glycol (Miralax) 17 gm DAILY PO Last administered on 02/07/19 09:03; Admin Dose 17 GM; Start 02/01/19 at 09:00 Sotalol HCl (Betapace) 40 mg BID PO Last administered on 02/07/19 09:06; Admin Dose 40 MG; Start 02/01/19 at 09:00 Pantoprazole (Protonix Tab) 40 mg DAILY@06 PO Last administered on 02/07/19 05:49; Admin Dose 40 MG; Start 02/01/19 at 06:00 Miscellaneous Information 1 ea NOTE XX ; Start 02/01/19 at 05:30 Glucose (Glutose) 15 gm Q15M PRN PO DECREASED GLUCOSE; Start 02/01/19 at 05:30 Glucose (Glutose) 22.5 gm Q15M PRN PO DECREASED GLUCOSE; Start 02/01/19 at 05:30 Dextrose (D50w Syringe) 25 ml Q15M PRN IV DECREASED GLUCOSE Last administered on 02/07/19 08:24; Admin Dose 25 ML; Start 02/01/19 at 05:30 Dextrose (D50w Syringe) 50 ml Q15M PRN IV DECREASED GLUCOSE; Start 02/01/19 at 05:30 Glucagon (Glucagen) 1 mg Q15M PRN IM DECREASED GLUCOSE; Start 02/01/19 at 05:30 Glucose (Glutose) 15 gm Q15M PRN BUCCAL DECREASED GLUCOSE; Start 02/01/19 at 05:30 Docusate Sodium (Colace Liquid Cup) 100 mg DAILY PO Last administered on 02/07/19 09:03; Admin Dose 100 MG; Start 02/01/19 at 13:30 Patient Own Medication 1 ea HS BOTH EYES Last administered on 02/06/19 20:31; Admin Dose 1 EA; Start 02/01/19 at 21:00 Patient Own Medication 1 ea BID BOTH EYES Last administered on 02/06/19 20:31; Admin Dose 1 EA; Start 02/01/19 at 21:00 Apixaban (Eliquis) 2.5 mg BID PO Last administered on 02/07/19 09:05; Admin Dose 2.5 MG; Start 02/01/19 at 21:00 Benzonatate (Tessalon) 100 mg TID PRN PO COUGH Last administered on 02/06/19 01:08; Admin Dose 100 MG; Start 02/02/19 at 02:30 Piperacillin Sod/ Tazobactam Sod 100 ml @ 25 mls/hr Q8 IVPB Last administered on 02/07/19 05:49; Admin Dose 25 MLS/HR; Start 02/02/19 at 09:01; Stop 02/12/19 at 09:00 Vancomycin HCl (Vanco Iv Per Pharmacy) VANCOMYCIN PER PHARMACY PER PROTOCOL XX ; Start 02/02/19 at 06:30 Eye Lubricant (Refresh Plus) 1 drop Q4H PRN BOTH EYES .DRY EYES; Start 02/02/19 at 10:00 Allopurinol (Zyloprim) 100 mg DAILY PO Last administered on 02/07/19 09:04; Admin Dose 100 MG; Start 02/02/19 at 10:30 Linagliptin (Tradjenta) 5 mg DAILY PO Last administered on 02/07/19 09:04; Admin Dose 5 MG; Start 02/02/19 at 10:30 Gentamicin Sulfate (Gentamicin 0.3% Oph Drop) 1 drop Q4 RIGHT EYE Last administered on 02/07/19 12:41; Admin Dose 1 DROP; Start 02/02/19 at 13:00 Albuterol/ Ipratropium (Duoneb) 3 ml Q4H RESP THERAPY HHN Last administered on 02/07/19 08:52; Admin Dose 3 ML; Start 02/02/19 at 13:00 Vancomycin/Sodium Chloride 250 ml @ 125 mls/hr Q48H IVPB Last administered on 02/06/19 09:23; Admin Dose 125 MLS/HR; Start 02/04/19 at 09:00; Stop 02/14/19 at 08:59 Dextrose/Sodium Chloride 500 ml @ 40 mls/hr [id number] IV Last administered on 02/05/19 21:38; Admin Dose 40 MLS/HR; Start 02/03/19 at 13:00 Insulin Aspart (Novolog Insulin Pen) NOVOLOG *MILD* ALGORITHM AC MEALS AND BEDTIME SC Last administered on 02/07/19 12:45; Admin Dose 1 UNIT; Start 02/03/19 at 17:30 Furosemide (Lasix) 20 mg BID DIURETICS IV Last administered on 02/06/19 17:50; Admin Dose 20 MG; Start 02/05/19 at 18:00 Acetylcysteine (Mucomyst) 1 ml BID NEB Last administered on 02/07/19 08:52; Admin Dose 1 ML; Start 02/05/19 at 21:00 Tiotropium [place] (Spiriva) 1 inh DAILY INH Last administered on 02/07/19 09:04; Admin Dose 1 INH; Start 02/06/19 at 17:00 Insulin Glargine (Lantus) 8 units DAILY@2000 SC ; Start 02/07/19 at 20:00; Status LUIS EDUARDO BREWER MD Feb 07, 2019 13:43
[2019-02-07 14:00] VITALS: BP 101/53; PULSE 60; RESP 18
--- NOTE | 2019-02-07 16:27 | CONS ---
Assessment/Plan Assessment/Plan Hospital Course (Demo Recall) IMP: 1.AF-Paced when last on tele. on eliquis 2.PPM-no signs of dysfunction at this time 3.HTN 4.DM 5.sob-likley PNA with possible component of CHF-diastolic EF 60% by echo this admit 6. Hypothyroid 7. PNA by chest CT 8. Renal failure-slight worsening Recc: -Now on med surg -serial ecg's -Continue sotalol as tolerated only and follow QTc on sotalol and thus will write for am ercg -Continue abx's and f/u cx data -Follow volume status clsoely and creatnine on gentle lasix diuresis -Continue bronchodilators Consultation Date/Type/Reason Admit Date/Time Feb 02, 2019 at 10:08 Initial Consult Date 02/02/19 Type of Consult Cardiology Reason for Consultation AF/PPM Requesting Provider: ANDREA KHAN NP Date/Time of Note DATE: 02/07/19 TIME: 16:24 Exam/Review of Systems Vital Signs Vitals Vital Signs Date Temp Pulse Resp B/P (MAP) Pulse Ox O2 O2 Flow FiO2 Time Delivery Rate 02/07/19 2.0 14:44 02/07/19 60 18 97 Nasal 14:14 Cannula 02/07/19 98.3 115/56 08:26 (75) Intake and Output 02/06/19 02/06/19 02/07/19 1515:00 23:00 07:00 IntakeIntake Total 250 ml 300 ml 520 ml OutputOutput Total 400 ml 200 ml BalanceBalance 250 ml -100 ml 320 ml Exam Exam Review of Systems: CONSTITUTIONAL: No fevers, chills. PULMONARY: No sob CARDIOVASCULAR: No chest pain/palpitations GASTROINTESTINAL: No nausea/vomiting. GENITOURINARY: No hematuria/dysuria. MUSCULOSKELETAL: No myagias/arthalgias. PSYCHIATRIC: The patient denies depression. NEUROLOGIC: No weakness Constitutional: alert Psych: no complaints Head: normocephalic ENMT: mucosa pink and moist Neck: supple, jvd (9 cm water) Respiratory: diminished breath sounds (at bases/B) Cardiovascular: regular rate and rhythm Gastrointestinal: soft, non-tender Musculoskeletal: muscle weakness (generalized) Extremities: edema (trace/B) Neurological: other (mild generalized weakness) Labs Result Diagram: 02/07/19 0437 02/07/19 0437 Results 24hrs Laboratory Tests Test 02/06/19 17:47 02/06/19 20:20 02/07/19 04:37 02/07/19 08:04 Bedside Glucose 128 169 61 L White Blood Count 8.2 Red Blood Count 3.07 L Hemoglobin 9.9 L Hematocrit 30.2 L Mean Corpuscular 98.4 Volume Mean Corpuscular 32.2 Hemoglobin Mean Corpuscular 32.8 Hemoglobin Concent Red Cell 13.8 Distribution Width Platelet Count 271 Mean Platelet Volume 11.0 H Immature 2.100 H Granulocytes % Neutrophils % 76.5 Lymphocytes % 12.5 L Monocytes % 8.0 Eosinophils % 0.4 Basophils % 0.5 Nucleated Red Blood 0.0 Cells % Immature 0.170 H Granulocytes # Neutrophils # 6.2 Lymphocytes # 1.0 Monocytes # 0.7 Eosinophils # 0.0 Basophils # 0.0 Nucleated Red Blood 0.0 Cells # Sodium Level 146 H Potassium Level 3.5 Chloride Level 108 Carbon Dioxide Level 30 Anion Gap 8 Blood Urea Nitrogen 39 H Creatinine 1.95 H Est Glomerular Filtrat Rate mL/min Glucose Level 81 Calcium Level 8.3 L Phosphorus Level 3.5 Magnesium Level 1.8 Test 02/07/19 08:19 02/07/19 08:43 02/07/19 09:01 02/07/19 12:11 Bedside Glucose 59 L 199 197 175 Medications Medications Current Medications IV Flush (NS 3 ml) 3 ml PER PROTOCOL IV ; Start 02/01/19 at 05:00 Ondansetron HCl (Zofran Inj) 4 mg Q6H PRN IV NAUSEA/VOMITING Last administered on 02/06/19at 16:21; Admin Dose 4 MG; Start 02/01/19 at 05:00 Nitroglycerin (Nitroglycerin (Sl Tab) 0.4 Mg) 1 tab Q5M PRN SL .CHEST PAIN; Start 02/01/19 at 05:00 Acetaminophen (Tylenol Tab) 650 mg Q6H PRN PO .PAIN 1-3 OR TEMP Last administered on 02/03/19at 23:12; Admin Dose 650 MG; Start 02/01/19 at 05:00 Albuterol/ Ipratropium (Duoneb) 3 ml Q2H RESP THERAPY PRN HHN SHORTNESS OF BREATH Last administered on 02/02/19 04:30; Admin Dose 3 ML; Start 02/01/19 at 05:00 Diagnostic Test (Pha) (Accu-Chek) 1 ea 02 XX ; Start 02/02/19 at 02:00 Ferrous Sulfate (Ferrous Sulfate (Ec)) 325 mg BID PO Last administered on 02/07/19 09:04; Admin Dose 325 MG; Start 02/01/19 at 09:00; Stop 03/03/19 at 08:59 Hydrocodone Bit/ Homatropine Methylb (Hycodan Liquid) 5 ml DAILY PRN PO COUGH Last administered on 02/04/19 21:20; Admin Dose 5 ML; Start 02/01/19 at 05:00 Levothyroxine Sodium (Synthroid) 75 mcg BEFORE BREAKFAST PO Last administered on 02/07/19 06:00; Admin Dose 75 MCG; Start 02/01/19 at 07:00 Lubiprostone (Amitiza) 24 mcg WITH BREAKFAST DINNE PO Last administered on 02/07/19 09:09; Admin Dose 24 MCG; Start 02/01/19 at 08:00 Meclizine HCl (Antivert) 25 mg TID PO Last administered on 02/07/19 12:40; Admin Dose 25 MG; Start 02/01/19 at 09:00 Polyethylene Glycol (Miralax) 17 gm DAILY PO Last administered on 02/07/19 09:03; Admin Dose 17 GM; Start 02/01/19 at 09:00 Sotalol HCl (Betapace) 40 mg BID PO Last administered on 02/07/19 09:06; Admin Dose 40 MG; Start 02/01/19 at 09:00 Pantoprazole (Protonix Tab) 40 mg DAILY@06 PO Last administered on 02/07/19 05:49; Admin Dose 40 MG; Start 02/01/19 at 06:00 Miscellaneous Information 1 ea NOTE XX ; Start 02/01/19 at 05:30 Glucose (Glutose) 15 gm Q15M PRN PO DECREASED GLUCOSE; Start 02/01/19 at 05:30 Glucose (Glutose) 22.5 gm Q15M PRN PO DECREASED GLUCOSE; Start 02/01/19 at 05:30 Dextrose (D50w Syringe) 25 ml Q15M PRN IV DECREASED GLUCOSE Last administered on 02/07/19 08:24; Admin Dose 25 ML; Start 02/01/19 at 05:30 Dextrose (D50w Syringe) 50 ml Q15M PRN IV DECREASED GLUCOSE; Start 02/01/19 at 05:30 Glucagon (Glucagen) 1 mg Q15M PRN IM DECREASED GLUCOSE; Start 02/01/19 at 05:30 Glucose (Glutose) 15 gm Q15M PRN BUCCAL DECREASED GLUCOSE; Start 02/01/19 at 05:30 Docusate Sodium (Colace Liquid Cup) 100 mg DAILY PO Last administered on 02/07/19 09:03; Admin Dose 100 MG; Start 02/01/19 at 13:30 Patient Own Medication 1 ea HS BOTH EYES Last administered on 02/06/19 20:31; Admin Dose 1 EA; Start 02/01/19 at 21:00 Patient Own Medication 1 ea BID BOTH EYES Last administered on 02/06/19 20:31; Admin Dose 1 EA; Start 02/01/19 at 21:00 Apixaban (Eliquis) 2.5 mg BID PO Last administered on 02/07/19 09:05; Admin Dose 2.5 MG; Start 02/01/19 at 21:00 Benzonatate (Tessalon) 100 mg TID PRN PO COUGH Last administered on 02/06/19 01:08; Admin Dose 100 MG; Start 02/02/19 at 02:30 Piperacillin Sod/ Tazobactam Sod 100 ml @ 25 mls/hr Q8 IVPB Last administered on 02/07/19 14:33; Admin Dose 25 MLS/HR; Start 02/02/19 at 09:01; Stop 02/12/19 at 09:00 Vancomycin HCl (Vanco Iv Per Pharmacy) VANCOMYCIN PER PHARMACY PER PROTOCOL XX ; Start 02/02/19 at 06:30; Stop 02/14/19 at 08:59 Eye Lubricant (Refresh Plus) 1 drop Q4H PRN BOTH EYES .DRY EYES; Start 02/02/19 at 10:00 Allopurinol (Zyloprim) 100 mg DAILY PO Last administered on 02/07/19 09:04; Admin Dose 100 MG; Start 02/02/19 at 10:30 Linagliptin (Tradjenta) 5 mg DAILY PO Last administered on 02/07/19 09:04; Admin Dose 5 MG; Start 02/02/19 at 10:30 Gentamicin Sulfate (Gentamicin 0.3% Oph Drop) 1 drop Q4 RIGHT EYE Last administered on 02/07/19 12:41; Admin Dose 1 DROP; Start 02/02/19 at 13:00 Albuterol/ Ipratropium (Duoneb) 3 ml Q4H RESP THERAPY HHN Last administered on 02/07/19 14:13; Admin Dose 3 ML; Start 02/02/19 at 13:00 Vancomycin/Sodium Chloride 250 ml @ 125 mls/hr Q48H IVPB Last administered on 02/06/19 09:23; Admin Dose 125 MLS/HR; Start 02/04/19 at 09:00; Stop 02/14/19 at 08:59 Dextrose/Sodium Chloride 500 ml @ 40 mls/hr [id number] IV Last administered on 02/05/19 21:38; Admin Dose 40 MLS/HR; Start 02/03/19 at 13:00 Insulin Aspart (Novolog Insulin Pen) NOVOLOG *MILD* ALGORITHM AC MEALS AND BEDTIME SC Last administered on 02/07/19 12:45; Admin Dose 1 UNIT; Start 02/03/19 at 17:30 Furosemide (Lasix) 20 mg BID DIURETICS IV Last administered on 02/06/19 17:50; Admin Dose 20 MG; Start 02/05/19 at 18:00 Acetylcysteine (Mucomyst) 1 ml BID NEB Last administered on 02/07/19 08:52; Admin Dose 1 ML; Start 02/05/19 at 21:00 Tiotropium [place] (Spiriva) 1 inh DAILY INH Last administered on 02/07/19 09:04; Admin Dose 1 INH; Start 02/06/19 at 17:00 Insulin Glargine (Lantus) 8 units DAILY@2000 SC ; Start 02/07/19 at 20:00 Miscellaneous Information (*Rx Drug Level Order Reminder*) VANCO TROUGH @ 0,800 ONCE ONCE XX ; Start 02/08/19 at 08:00; Stop 02/08/19 at 08:01 SHAWANDA LUGO Feb 07, 2019 16:27
--- NOTE | 2019-02-07 17:03 | CONS ---
Assessment/Plan Assessment/Plan Hospital Course (Demo Recall) 1. ckd 2. acute CHF, acute on chronic diastolic CHF, ECHO showed EF 60% with stage II diastoilc dysfunction better 3. H/o HTN 4. H/o HL 5. Anemia of CKD 6. H/o history of CHF, atrial fibrillation, diabetes, hypothyroidism, CKD, GI bleed, pacemaker, 7 Pneumonia 8 resp failure likely secondary to CHF/pneumonia 9 hypokalemia better plan ck bmp Consultation Date/Type/Reason Admit Date/Time Feb 02, 2019 at 10:08 Initial Consult Date RENAL weakness no sob poor appetite Requesting Provider: ANDREA KHAN NP Date/Time of Note DATE: 02/07/19 TIME: 17:02 24 HR Interval Summary Constitutional: no complaints; No chills, No diaphoresis Exam/Review of Systems Exam Vitals Vital Signs Date Temp Pulse Resp B/P (MAP) Pulse Ox O2 O2 Flow FiO2 Time Delivery Rate 02/07/19 2.0 14:44 02/07/19 60 18 97 Nasal 14:14 Cannula 02/07/19 98.3 115/56 08:26 (75) Intake and Output 02/06/19 02/06/19 02/07/19 1515:00 23:00 07:00 IntakeIntake Total 250 ml 300 ml 520 ml OutputOutput Total 400 ml 200 ml BalanceBalance 250 ml -100 ml 320 ml Respiratory: clear to auscultation Cardiovascular: regular rate and rhythm Gastrointestinal: soft Genitourinary - Female: nl adnexae Musculoskeletal: nl extremities to inspection 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 Results Result Diagram: 02/07/19 0437 02/07/19 043 Results 24hrs Laboratory Tests Test 02/06/19 17:47 02/06/19 20:20 02/07/19 04:37 02/07/19 08:04 Bedside Glucose 128 169 61 L White Blood Count 8.2 Red Blood Count 3.07 L Hemoglobin 9.9 L Hematocrit 30.2 L Mean Corpuscular 98.4 Volume Mean Corpuscular 32.2 Hemoglobin Mean Corpuscular 32.8 Hemoglobin Concent Red Cell 13.8 Distribution Width Platelet Count 271 Mean Platelet Volume 11.0 H Immature 2.100 H Granulocytes % Neutrophils % 76.5 Lymphocytes % 12.5 L Monocytes % 8.0 Eosinophils % 0.4 Basophils % 0.5 Nucleated Red Blood 0.0 Cells % Immature 0.170 H Granulocytes # Neutrophils # 6.2 Lymphocytes # 1.0 Monocytes # 0.7 Eosinophils # 0.0 Basophils # 0.0 Nucleated Red Blood 0.0 Cells # Sodium Level 146 H Potassium Level 3.5 Chloride Level 108 Carbon Dioxide Level 30 Anion Gap 8 Blood Urea Nitrogen 39 H Creatinine 1.95 H Est Glomerular Filtrat Rate mL/min Glucose Level 81 Calcium Level 8.3 L Phosphorus Level 3.5 Magnesium Level 1.8 Test 02/07/19 08:19 02/07/19 08:43 02/07/19 09:01 02/07/19 12:11 Bedside Glucose 59 L 199 197 175 Medications Medication Current Medications IV Flush (NS 3 ml) 3 ml PER PROTOCOL IV ; Start 02/01/19 at 05:00 Ondansetron HCl (Zofran Inj) 4 mg Q6H PRN IV NAUSEA/VOMITING Last administered on 02/06/19at 16:21; Admin Dose 4 MG; Start 02/01/19 at 05:00 Nitroglycerin (Nitroglycerin (Sl Tab) 0.4 Mg) 1 tab Q5M PRN SL .CHEST PAIN; Start 02/01/19 at 05:00 Acetaminophen (Tylenol Tab) 650 mg Q6H PRN PO .PAIN 1-3 OR TEMP Last administered on 02/03/19at 23:12; Admin Dose 650 MG; Start 02/01/19 at 05:00 Albuterol/ Ipratropium (Duoneb) 3 ml Q2H RESP THERAPY PRN HHN SHORTNESS OF BREATH Last administered on 02/02/19at 04:30; Admin Dose 3 ML; Start 02/01/19 at 05:00 Diagnostic Test (Pha) (Accu-Chek) 1 ea 02 XX ; Start 02/02/19 at 02:00 Ferrous Sulfate (Ferrous Sulfate (Ec)) 325 mg BID PO Last administered on 02/07/19at 09:04; Admin Dose 325 MG; Start 02/01/19 at 09:00; Stop 03/03/19 at 08:59 Hydrocodone Bit/ Homatropine Methylb (Hycodan Liquid) 5 ml DAILY PRN PO COUGH Last administered on 02/04/19at 21:20; Admin Dose 5 ML; Start 02/01/19 at 05:00 Levothyroxine Sodium (Synthroid) 75 mcg BEFORE BREAKFAST PO Last administered on 02/07/19 06:00; Admin Dose 75 MCG; Start 02/01/19 at 07:00 Lubiprostone (Amitiza) 24 mcg WITH BREAKFAST DINNE PO Last administered on 02/07/19 09:09; Admin Dose 24 MCG; Start 02/01/19 at 08:00 Meclizine HCl (Antivert) 25 mg TID PO Last administered on 02/07/19 12:40; Admin Dose 25 MG; Start 02/01/19 at 09:00 Polyethylene Glycol (Miralax) 17 gm DAILY PO Last administered on 02/07/19 09:03; Admin Dose 17 GM; Start 02/01/19 at 09:00 Sotalol HCl (Betapace) 40 mg BID PO Last administered on 02/07/19 09:06; Admin Dose 40 MG; Start 02/01/19 at 09:00 Pantoprazole (Protonix Tab) 40 mg DAILY@06 PO Last administered on 02/07/19 05:49; Admin Dose 40 MG; Start 02/01/19 at 06:00 Miscellaneous Information 1 ea NOTE XX ; Start 02/01/19 at 05:30 Glucose (Glutose) 15 gm Q15M PRN PO DECREASED GLUCOSE; Start 02/01/19 at 05:30 Glucose (Glutose) 22.5 gm Q15M PRN PO DECREASED GLUCOSE; Start 02/01/19 at 05:30 Dextrose (D50w Syringe) 25 ml Q15M PRN IV DECREASED GLUCOSE Last administered on 02/07/19 08:24; Admin Dose 25 ML; Start 02/01/19 at 05:30 Dextrose (D50w Syringe) 50 ml Q15M PRN IV DECREASED GLUCOSE; Start 02/01/19 at 05:30 Glucagon (Glucagen) 1 mg Q15M PRN IM DECREASED GLUCOSE; Start 02/01/19 at 05:30 Glucose (Glutose) 15 gm Q15M PRN BUCCAL DECREASED GLUCOSE; Start 02/01/19 at 05:30 Docusate Sodium (Colace Liquid Cup) 100 mg DAILY PO Last administered on 02/07/19 09:03; Admin Dose 100 MG; Start 02/01/19 at 13:30 Patient Own Medication 1 ea HS BOTH EYES Last administered on 02/06/19 20:31; Admin Dose 1 EA; Start 02/01/19 at 21:00 Patient Own Medication 1 ea BID BOTH EYES Last administered on 02/06/19 20:31; Admin Dose 1 EA; Start 02/01/19 at 21:00 Apixaban (Eliquis) 2.5 mg BID PO Last administered on 02/07/19 09:05; Admin Dose 2.5 MG; Start 02/01/19 at 21:00 Benzonatate (Tessalon) 100 mg TID PRN PO COUGH Last administered on 02/06/19 01:08; Admin Dose 100 MG; Start 02/02/19 at 02:30 Piperacillin Sod/ Tazobactam Sod 100 ml @ 25 mls/hr Q8 IVPB Last administered on 02/07/19 14:33; Admin Dose 25 MLS/HR; Start 02/02/19 at 09:01; Stop 02/12/19 at 09:00 Vancomycin HCl (Vanco Iv Per Pharmacy) VANCOMYCIN PER PHARMACY PER PROTOCOL XX ; Start 02/02/19 at 06:30; Stop 02/14/19 at 08:59 Eye Lubricant (Refresh Plus) 1 drop Q4H PRN BOTH EYES .DRY EYES; Start 02/02/19 at 10:00 Allopurinol (Zyloprim) 100 mg DAILY PO Last administered on 02/07/19 09:04; Admin Dose 100 MG; Start 02/02/19 at 10:30 Linagliptin (Tradjenta) 5 mg DAILY PO Last administered on 02/07/19 09:04; Ad min Dose 5 MG; Start 02/02/19 at 10:30 Gentamicin Sulfate (Gentamicin 0.3% Oph Drop) 1 drop Q4 RIGHT EYE Last administered on 02/07/19 12:41; Admin Dose 1 DROP; Start 02/02/19 at 13:00 Albuterol/ Ipratropium (Duoneb) 3 ml Q4H RESP THERAPY HHN Last administered on 02/07/19 14:13; Admin Dose 3 ML; Start 02/02/19 at 13:00 Vancomycin/Sodium Chloride 250 ml @ 125 mls/hr Q48H IVPB Last administered on 02/06/19 09:23; Admin Dose 125 MLS/HR; Start 02/04/19 at 09:00; Stop 02/14/19 at 08:59 Dextrose/Sodium Chloride 500 ml @ 40 mls/hr [id number] IV Last administered on 02/05/19at 21:38; Admin Dose 40 MLS/HR; Start 02/03/19 at 13:00 Insulin Aspart (Novolog Insulin Pen) NOVOLOG *MILD* ALGORITHM AC MEALS AND BEDTIME SC Last administered on 02/07/19 12:45; Admin Dose 1 UNIT; Start 02/03/19 at 17:30 Furosemide (Lasix) 20 mg BID DIURETICS IV Last administered on 02/06/19 17:50; Admin Dose 20 MG; Start 02/05/19 at 18:00 Acetylcysteine (Mucomyst) 1 ml BID NEB Last administered on 02/07/19 08:52; Admin Dose 1 ML; Start 02/05/19 at 21:00 Tiotropium [place] (Spiriva) 1 inh DAILY INH Last administered on 02/07/19 09:04; Admin Dose 1 INH; Start 02/06/19 at 17:00 Insulin Glargine (Lantus) 8 units DAILY@2000 SC ; Start 02/07/19 at 20:00 Miscellaneous Information (*Rx Drug Level Order Reminder*) VANCO TROUGH @ 0,800 ONCE ONCE XX ; Start 02/08/19 at 08:00; Stop 02/08/19 at 08:01 HERSON DAVIS MD Feb 07, 2019 17:02
[2019-02-07 17:54] VITALS: BP 121/61; PULSE 60
[2019-02-07 20:00] VITALS: BP 116/59; PULSE 60; RESP 17
[2019-02-07] MEDS ORDERED: INSULIN GLARGINE [LANTus] (100 UNITS/ML) SYG SC SCH (20:00)
[2019-02-08] MEDS: ALBUTEROL/IPRATROPIUM (NEB) 3 ML AMP HHN SCH ×6 (01:03→20:09)
[2019-02-08] MEDS: ACCU-CHEK XX SCH (01:10)
[2019-02-08] MEDS: GENTAMICIN 0.3% 5 ML OPH RIGHT EYE SCH ×6 (01:11→20:53)
[2019-02-08 02:00] VITALS: BP 141/67; PULSE 60; RESP 19
[2019-02-08] MEDS: PIPER-TAZO 3.375 GM IV (PMX) 100 ML IVPB SCH ×2 (06:21→13:37)
[2019-02-08] MEDS: LEVOTHYROXINE 75 MCG TAB PO SCH (06:21)
[2019-02-08] MEDS: FUROSEMIDE 20 MG INJ IV SCH (06:21)
[2019-02-08] MEDS: PANTOPRAZOLE (EC) 40 MG TAB PO SCH (06:21)
[2019-02-08] MEDS: INSULIN ASPART [NOVOLOG] 3 ML PEN SC SCH ×4 (08:13→20:50)
[2019-02-08 08:21] VITALS: BP 119/58; PULSE 60; RESP 18
[2019-02-08] MEDS: LUBIPROSTONE 24 MCG CAP PO SCH ×2 (09:21→17:32)
[2019-02-08] MEDS: MECLIZINE 25 MG TAB PO SCH ×3 (09:22→20:45)
[2019-02-08] MEDS: POLYETHYLENE GLYCOL 17 GM PACKET PO SCH (09:22)
[2019-02-08] MEDS: LINAGLIPTIN 5 MG TABLET PO SCH (09:22)
[2019-02-08] MEDS: FERROUS SULFATE (EC) 325 MG TAB PO SCH ×2 (09:22→20:45)
[2019-02-08] MEDS: TIOTROPIUM 18 MCG CAPSULE INHA DEV INH SCH (09:22)
[2019-02-08] MEDS: PATIENT'S OWN MEDICATION BOTH EYES SCH ×3 (09:22→20:53)
[2019-02-08] MEDS: ALLOPURINOL 100 MG TAB PO SCH (09:22)
[2019-02-08] MEDS: DOCUSATE SODIUM 10 MG/ML (10ML CUP) PO SCH (09:22)
[2019-02-08] MEDS: SOTALOL 80 MG TAB PO SCH ×2 (09:23→20:46)
[2019-02-08] MEDS: APIXABAN 5 MG TABLET PO SCH ×2 (09:23→20:52)
--- NOTE | 2019-02-08 09:30 | CONS ---
Assessment/Plan Assessment/Plan Assessment/Plan (Daily) Assessment recommendations; 1. Patient admitted with bilateral lower lobe pneumonia with marked clinical and radiological improvement. 2. History of chronic renal insufficiency. 3. History of cardiac arrhythmia, status post pacemaker placement. 4. Chronic atrial fibrillation. Continue current supportive care. Patient awaiting [facility] transfer. Consider stopping antibiotics in 24 hours. Consultation Date/Type/Reason Admit Date/Time Feb 02, 2019 at 10:08 Initial Consult Date 02/02/19 Type of Consult Pulmonary Pulmonary consult requested for evaluation of hypoxemia. Patient is a 88-year-old lady who was admitted to the hospital brought in from home with complaints of shortness of breath. Upon evaluation patient be diagnosed with pneumonia as well as possible CHF. Patient has been started on appropriate antimicrobial regimen as well as intravenous Lasix. The patient is quite lethargic and according to the patient's daughter who was present in the room the patient has been regular for the last 2 months and was recently admitted to [facility] where she was admitted couple of weeks ago patient however did not appear to be in any distress.. History was obtained from medical records as well as from patient's daughter who was present in the room. Past medical history; 1. Chronic atrial fibrillation 2. Diabetes. 3. Chronic renal insufficiency. 4. Hypothyroidism. 5. Chronic anemia. 6. Questionable CHF. Medications; reviewed. Allergies; none. Social history; noncontributory. Family history; patient is a , has supportive family. Lives with her daughter. 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 Review of system; unable to be obtained. General exam; elderly female, awake, somewhat responsive currently no distress. Requesting Provider: ANDREA KHAN NP Date/Time of Note DATE: 02/08/19 TIME: 09:28 24 HR Interval Summary Free Text/Dictation Patient's condition is stable. Remains completely awake and alert. Has remained hemodynamically stable. General exam; elderly female, awake alert, currently no distress. Exam/Review of Systems Exam Vitals Vital Signs Date Temp Pulse Resp B/P (MAP) Pulse Ox O2 O2 Flow FiO2 Time Delivery Rate 02/08/19 97.9 60 18 119/58 97 08:21 (78) 02/08/19 Nasal 2.0 05:08 Cannula Intake and Output 02/07/19 02/07/19 02/08/19 1414:59 22:59 06:59 IntakeIntake Total 340 ml 430 ml 460 ml BalanceBalance 340 ml 430 ml 460 ml Exam H EENT exam; supple neck, no JVD. No lymphadenopathy. Midline trachea. No thyromegaly. Patient has dentures. Pupils are small bilaterally. Chest exam; diminished but clear breath sounds. S1-S2 audible, no murmurs. Pacemaker in left chest wall. Abdomen exam; soft, nontender. No organomegaly. Bowel sounds audible. Extremity exam; no peripheral edema clubbing. PRECISION LENS GRINDER exam; no focal deficit. Results Result Diagram: 02/07/19 0437 02/07/19436 Results 24hrs Laboratory Tests Test 02/07/19 12:11 02/07/19 17:26 02/07/19 20:51 02/08/19 08:11 Bedside Glucose 175 172 153 152 Medications Medication Current Medications IV Flush (NS 3 ml) 3 ml PER PROTOCOL IV ; Start 02/01/19 at 05:00 Ondansetron HCl (Zofran Inj) 4 mg Q6H PRN IV NAUSEA/VOMITING Last administered on 02/06/19at 16:21; Admin Dose 4 MG; Start 02/01/19 at 05:00 Nitroglycerin (Nitroglycerin (Sl Tab) 0.4 Mg) 1 tab Q5M PRN SL .CHEST PAIN; Start 02/01/19 at 05:00 Acetaminophen (Tylenol Tab) 650 mg Q6H PRN PO .PAIN 1-3 OR TEMP Last administered on 02/03/19at 23:12; Admin Dose 650 MG; Start 02/01/19 at 05:00 Albuterol/ Ipratropium (Duoneb) 3 ml Q2H RESP THERAPY PRN HHN SHORTNESS OF BREATH Last administered on 02/02/19at 04:30; Admin Dose 3 ML; Start 02/01/19 at 05:00 Diagnostic Test (Pha) (Accu-Chek) 1 ea 02 XX ; Start 02/02/19 at 02:00 Ferrous Sulfate (Ferrous Sulfate (Ec)) 325 mg BID PO Last administered on 02/08/19at 09:22; Admin Dose 325 MG; Start 02/01/19 at 09:00; Stop 03/03/19 at 08:59 Hydrocodone Bit/ Homatropine Methylb (Hycodan Liquid) 5 ml DAILY PRN PO COUGH Last administered on 02/04/19 21:20; Admin Dose 5 ML; Start 02/01/19 at 05:00 Levothyroxine Sodium (Synthroid) 75 mcg BEFORE BREAKFAST PO Last administered on 02/08/19 06:21; Admin Dose 75 MCG; Start 02/01/19 at 07:00 Lubiprostone (Amitiza) 24 mcg WITH BREAKFAST DINNE PO Last administered on 02/08/19 09:21; Admin Dose 24 MCG; Start 02/01/19 at 08:00 Meclizine HCl (Antivert) 25 mg TID PO Last administered on 02/08/19 09:22; Admin Dose 25 MG; Start 02/01/19 at 09:00 Polyethylene Glycol (Miralax) 17 gm DAILY PO Last administered on 02/08/19 09:22; Admin Dose 17 GM; Start 02/01/19 at 09:00 Sotalol HCl (Betapace) 40 mg BID PO Last administered on 02/08/19 09:23; Admin Dose 40 MG; Start 02/01/19 at 09:00 Pantoprazole (Protonix Tab) 40 mg DAILY@06 PO Last administered on 02/08/19 06:21; Admin Dose 40 MG; Start 02/01/19 at 06:00 Miscellaneous Information 1 ea NOTE XX ; Start 02/01/19 at 05:30 Glucose (Glutose) 15 gm Q15M PRN PO DECREASED GLUCOSE; Start 02/01/19 at 05:30 Glucose (Glutose) 22.5 gm Q15M PRN PO DECREASED GLUCOSE; Start 02/01/19 at 05:30 Dextrose (D50w Syringe) 25 ml Q15M PRN IV DECREASED GLUCOSE Last administered on 02/07/19 08:24; Admin Dose 25 ML; Start 02/01/19 at 05:30 Dextrose (D50w Syringe) 50 ml Q15M PRN IV DECREASED GLUCOSE; Start 02/01/19 at 05:30 Glucagon (Glucagen) 1 mg Q15M PRN IM DECREASED GLUCOSE; Start 02/01/19 at 05:30 Glucose (Glutose) 15 gm Q15M PRN BUCCAL DECREASED GLUCOSE; Start 02/01/19 at 05:30 Docusate Sodium (Colace Liquid Cup) 100 mg DAILY PO Last administered on 02/08/19 09:22; Admin Dose 100 MG; Start 02/01/19 at 13:30 Patient Own Medication 1 ea HS BOTH EYES Last administered on 02/07/19 20:52; Admin Dose 1 EA; Start 02/01/19 at 21:00 Patient Own Medication 1 ea BID BOTH EYES Last administered on 02/08/19 09:22; Admin Dose 1 EA; Start 02/01/19 at 21:00 Apixaban (Eliquis) 2.5 mg BID PO Last administered on 02/08/19 09:23; Admin Dose 2.5 MG; Start 02/01/19 at 21:00 Benzonatate (Tessalon) 100 mg TID PRN PO COUGH Last administered on 02/06/19 01:08; Admin Dose 100 MG; Start 02/02/19 at 02:30 Piperacillin Sod/ Tazobactam Sod 100 ml @ 25 mls/hr Q8 IVPB Last administered on 02/08/19 06:21; Admin Dose 25 MLS/HR; Start 02/02/19 at 09:01; Stop 02/12/19 at 09:00 Vancomycin HCl (Vanco Iv Per Pharmacy) VANCOMYCIN PER PHARMACY PER PROTOCOL XX ; Start 02/02/19 at 06:30; Stop 02/14/19 at 08:59 Eye Lubricant (Refresh Plus) 1 drop Q4H PRN BOTH EYES .DRY EYES; Start 02/02/19 at 10:00 Allopurinol (Zyloprim) 100 mg DAILY PO Last administered on 02/08/19 09:22; Admin Dose 100 MG; Start 02/02/19 at 10:30 Linagliptin (Tradjenta) 5 mg DAILY PO Last administered on 02/08/19 09:22; Admin Dose 5 MG; Start 02/02/19 at 10:30 Gentamicin Sulfate (Gentamicin 0.3% Oph Drop) 1 drop Q4 RIGHT EYE Last administered on 02/08/19 09:22; Admin Dose 1 DROP; Start 02/02/19 at 13:00 Albuterol/ Ipratropium (Duoneb) 3 ml Q4H RESP THERAPY HHN Last administered on 02/08/19 05:06; Admin Dose 3 ML; Start 02/02/19 at 13:00 Vancomycin/Sodium Chloride 250 ml @ 125 mls/hr Q48H IVPB Last administered on 02/06/19 09:23; Admin Dose 125 MLS/HR; Start 02/04/19 at 09:00; Stop 02/14/19 at 08:59 Dextrose/Sodium Chloride 500 ml @ 40 mls/hr [id number] IV Last administered on 22:46; Admin Dose 40 MLS/HR; Start 02/03/19 at 13:00 Insulin Aspart (Novolog Insulin Pen) NOVOLOG *MILD* ALGORITHM AC MEALS AND BEDTIME SC Last administered on 02/08/19 08:13; Admin Dose 1 UNIT; Start 02/03/19 at 17:30 Furosemide (Lasix) 20 mg BID DIURETICS IV Last administered on 02/08/19 06:21; Admin Dose 20 MG; Start 02/05/19 at 18:00 Acetylcysteine (Mucomyst) 1 ml BID NEB Last administered on 02/07/19 20:10; Admin Dose 1 ML; Start 02/05/19 at 21:00 Tiotropium [place] (Spiriva) 1 inh DAILY INH Last administered on 02/08/19 09:22; Admin Dose 1 INH; Start 02/06/19 at 17:00 Insulin Glargine (Lantus) 8 units DAILY@2000 SC Last administered on 02/07/19 20:57; Admin Dose 8 UNITS; Start 02/07/19 at 20:00 DENTON ACHARYA Feb 08, 2019 09:30
[2019-02-08] MEDS: ACETYLCYSTEINE 20% 4 ML VIAL NEB SCH ×2 (10:31→20:09)
[2019-02-08] MEDS: VANCOMYCIN 750 MG (PMX) 250 ML IVPB SCH (11:30)
--- NOTE | 2019-02-08 14:10 | PN ---
Date/Time of Note Date/Time of Note DATE: 02/08/19 TIME: 13:52 Assessment/Plan VTE Prophylaxis Risk score (from Ns)>0 risk: 5 SCD applied (from Ns): Yes Pharmacological prophylaxis: apixaban Lines/Catheters IV [facility]from [facility] Peripheral IV Urinary Cath still in place: No Assessment/Plan Hospital Course SUBJECTIVE: No acute overnight episodes. OBJECTIVE: Vital signs-see below PHYSICAL EXAM: Constitutional: Frail looking, elderly female, not in acute distress. Psych: nl mood/affect, no complaints Head: atraumatic, normocephalic Eyes: nl conjunctiva, nl sclera ENMT: mucosa pink and moist, nl external ears & nose Neck: non-tender, supple Respiratory: +Cough.. Rhonchi + RUL, normal air movement Cardiovascular: +Rhonchi bilaterally. Diminished bases. nl pulses, regular rate and rhythm Gastrointestinal: non-tender, soft, bowel sounds active in all 4 quadrants. Musculoskeletal/extremities: nl extremities to inspection, motor strength equal bilaterally, no focal deficit. Normal pulses,no cyanosis, no edema. Neurological: Alert oriented 3,nl speech, nl strength Skin: nl turgor ASSESSMENT/PLAN:88-year-old female who was recently discharged from a [facility] facility 2 weeks ago, with a history of CHF, A. fib, CKD, hypothyroidism, anemia, diabetes, was brought in for worsening cough, shortness of breath, weakness for a few day duration... 1. Acute on chronic oxygen dependent hypoxemic respiratory failure, multifactorial with aspiration pneumonia, heart failure. -Now stable. -Continue current management. Titrate oxygen to keep SPO2 above 92%. -Continue breathing treatments. 2. Aspiration pneumonia. -Clinically/radiographically improved. De-escalate antibiotic to doxycycline and Flagylx5 more days -Aspiration precaution -HOB >40 degree.. 3.Acute on chronic diastolic congestive heart failure. -STOP IVFs -Continue diuresis dose by renal (change to 20 mg daily as patient appears euvolemic), beta blockers. -Monitor I's and O's. 4. Paroxysmal atrial fibrillation. -Currently in normal sinus rhythm. -Continue atc eliquis, Betapace for rate control 5. Acute kidney injury on CKD -Creatinine worsening. DC Vancomycin, de-escalate Lasix to daily. -Management per nephrology. -Renally dose medications. 6. 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 DMII -Patient with hypoglycemic events. Continue single oral regimen with Tradjenta. DC Lantus. Continue Accu-Cheks and sliding scale. 8. Anemia of CKD. -HH stable. 9. Hypothyroidism -On Synthroid 10. Debility. -pt tx -rehab consult/[facility] eval DVT prophylaxis: Eliquis PUD prophylaxis: Pepcid CODE STATUS: Full code Diet: pureed Disposition: Overall respiratory status remained stable. De-escalate antibiotics. Pending [facility] bed availability. Alternatively, family preservation caseworker to consider acute rehabilitation unit or senior care. Patient was seen in collaboration with Dr. Goldsmith Result Diagram: 02/07/19 0437 02/07/197 Results 24hrs Laboratory Tests Test 02/07/19 17:26 02/07/19 20:51 02/08/19 08:11 02/08/19 09:10 Bedside Glucose 172 153 152 Vancomycin Level 10.6 Trough Test 02/08/19 12:20 Bedside Glucose 151 Exam/Review of Systems Exam Vitals Vital Signs Date Temp Pulse Resp B/P (MAP) Pulse Ox O2 O2 Flow FiO2 Time Delivery Rate 02/08/19 Nasal 3.0 09:00 Cannula 02/08/19 97.9 60 18 119/58 97 08:21 (78) Intake and Output 02/07/19 02/07/19 02/08/19 1515:00 23:00 07:00 IntakeIntake Total 340 ml 430 ml 700 ml BalanceBalance 340 ml 430 ml 700 ml Results Results 24hrs Laboratory Tests Test 02/07/19 17:26 02/07/19 20:51 02/08/19 08:11 02/08/19 09:10 Bedside Glucose 172 153 152 Vancomycin Level 10.6 Trough Test 02/08/19 12:20 Bedside Glucose 151 Medications Medication Current Medications IV Flush (NS 3 ml) 3 ml PER PROTOCOL IV ; Start 02/01/19 at 05:00 Ondansetron HCl (Zofran Inj) 4 mg Q6H PRN IV NAUSEA/VOMITING Last administered on 02/06/19at 16:21; Admin Dose 4 MG; Start 02/01/19 at 05:00 Nitroglycerin (Nitroglycerin (Sl Tab) 0.4 Mg) 1 tab Q5M PRN SL .CHEST PAIN; Start 02/01/19 at 05:00 Acetaminophen (Tylenol Tab) 650 mg Q6H PRN PO .PAIN 1-3 OR TEMP Last administered on 02/03/19 23:12; Admin Dose 650 MG; Start 02/01/19 at 05:00 Albuterol/ Ipratropium (Duoneb) 3 ml Q2H RESP THERAPY PRN HHN SHORTNESS OF BREATH Last administered on 02/02/19 04:30; Admin Dose 3 ML; Start 02/01/19 at 05:00 Diagnostic Test (Pha) (Accu-Chek) 1 ea 02 XX ; Start 02/02/19 at 02:00 Ferrous Sulfate (Ferrous Sulfate (Ec)) 325 mg BID PO Last administered on 02/08/19 09:22; Admin Dose 325 MG; Start 02/01/19 at 09:00; Stop 03/03/19 at 08:59 Hydrocodone Bit/ Homatropine Methylb (Hycodan Liquid) 5 ml DAILY PRN PO COUGH Last administered on 02/04/19 21:20; Admin Dose 5 ML; Start 02/01/19 at 05:00 Levothyroxine Sodium (Synthroid) 75 mcg BEFORE BREAKFAST PO Last administered on 02/08/19 06:21; Admin Dose 75 MCG; Start 02/01/19 at 07:00 Lubiprostone (Amitiza) 24 mcg WITH BREAKFAST DINNE PO Last administered on 01/29 09:21; Admin Dose 24 MCG; Start 02/01/19 at 08:00 Meclizine HCl (Antivert) 25 mg TID PO Last administered on 02/08/19 13:22; Admin Dose 25 MG; Start 02/01/19 at 09:00 Polyethylene Glycol (Miralax) 17 gm DAILY PO Last administered on 02/08/19 09:22; Admin Dose 17 GM; Start 02/01/19 at 09:00 Sotalol HCl (Betapace) 40 mg BID PO Last administered on 02/08/19 09:23; Admin Dose 40 MG; Start 02/01/19 at 09:00 Pantoprazole (Protonix Tab) 40 mg DAILY@06 PO Last administered on 02/08/19 06:21; Admin Dose 40 MG; Start 02/01/19 at 06:00 Miscellaneous Information 1 ea NOTE XX ; Start 02/01/19 at 05:30 Glucose (Glutose) 15 gm Q15M PRN PO DECREASED GLUCOSE; Start 02/01/19 at 05:30 Glucose (Glutose) 22.5 gm Q15M PRN PO DECREASED GLUCOSE; Start 02/01/19 at 05:30 Dextrose (D50w Syringe) 25 ml Q15M PRN IV DECREASED GLUCOSE Last administered on 02/07/19 08:24; Admin Dose 25 ML; Start 02/01/19 at 05:30 Dextrose (D50w Syringe) 50 ml Q15M PRN IV DECREASED GLUCOSE; Start 02/01/19 at 05:30 Glucagon (Glucagen) 1 mg Q15M PRN IM DECREASED GLUCOSE; Start 02/01/19 at 05:30 Glucose (Glutose) 15 gm Q15M PRN BUCCAL DECREASED GLUCOSE; Start 02/01/19 at 05:30 Docusate Sodium (Colace Liquid Cup) 100 mg DAILY PO Last administered on 02/08/19 09:22; Admin Dose 100 MG; Start 02/01/19 at 13:30 Patient Own Medication 1 ea HS BOTH EYES Last administered on 02/07/19 20:52; Admin Dose 1 EA; Start 02/01/19 at 21:00 Patient Own Medication 1 ea BID BOTH EYES Last administered on 02/08/19 09:22; Admin Dose 1 EA; Start 02/01/19 at 21:00 Apixaban (Eliquis) 2.5 mg BID PO Last administered on 02/08/19 09:23; Admin Dose 2.5 MG; Start 02/01/19 at 21:00 Benzonatate (Tessalon) 100 mg TID PRN PO COUGH Last administered on 02/06/19 01:08; Admin Dose 100 MG; Start 02/02/19 at 02:30 Piperacillin Sod/ Tazobactam Sod 100 ml @ 25 mls/hr Q8 IVPB Last administered on 02/08/19 13:37; Admin Dose 25 MLS/HR; Start 02/02/19 at 09:01; Stop 02/12/19 at 09:00 Vancomycin HCl (Vanco Iv Per Pharmacy) VANCOMYCIN PER PHARMACY PER PROTOCOL XX ; Start 02/02/19 at 06:30; Stop 02/14/19 at 08:59 Eye Lubricant (Refresh Plus) 1 drop Q4H PRN BOTH EYES .DRY EYES; Start 02/02/19 at 10:00 Allopurinol (Zyloprim) 100 mg DAILY PO Last administered on 02/08/19 09:22; Admin Dose 100 MG; Start 02/02/19 at 10:30 Linagliptin (Tradjenta) 5 mg DAILY PO Last administered on 02/08/19 09:22; Admin Dose 5 MG; Start 02/02/19 at 10:30 Gentamicin Sulfate (Gentamicin 0.3% Oph Drop) 1 drop Q4 RIGHT EYE Last administered on 02/08/19 13:22; Admin Dose 1 DROP; Start 02/02/19 at 13:00 Albuterol/ Ipratropium (Duoneb) 3 ml Q4H RESP THERAPY HHN Last administered on 02/08/19 10:34; Admin Dose 3 ML; Start 02/02/19 at 13:00 Vancomycin/Sodium Chloride 250 ml @ 125 mls/hr Q48H IVPB Last administered on 02/08/19 11:30; Admin Dose 125 MLS/HR; Start 02/04/19 at 09:00; Stop 02/14/19 at 08:59 Dextrose/Sodium Chloride 500 ml @ 40 mls/hr [id number] IV Last administered on 02/07/19 22:46; Admin Dose 40 MLS/HR; Start 02/03/19 at 13:00 Insulin Aspart (Novolog Insulin Pen) NOVOLOG *MILD* ALGORITHM AC MEALS AND BEDTIME SC Last administered on 02/08/19 12:26; Admin Dose 1 UNIT; Start 02/03/19 at 17:30 Furosemide (Lasix) 20 mg BID DIURETICS IV Last administered on 02/08/19 06:21; Admin Dose 20 MG; Start 02/05/19 at 18:00 Acetylcysteine (Mucomyst) 1 ml BID NEB Last administered on 02/08/19 10:31; Admin Dose 1 ML; Start 02/05/19 at 21:00 Tiotropium [place] (Spiriva) 1 inh DAILY INH Last administered on 02/08/19 09:22; Admin Dose 1 INH; Start 02/06/19 at 17:00 Insulin Glargine (Lantus) 8 units DAILY@2000 SC Last administered on 02/07/19at 20:57; Admin Dose 8 UNITS; Start 02/07/19 at 20:00 ANDREA KHAN NP Feb 08, 2019 14:03
[2019-02-08 14:19] VITALS: BP 104/53; PULSE 60; RESP 16
--- NOTE | 2019-02-08 14:39 | CONS ---
Assessment/Plan Assessment/Plan Assessment/Plan (Daily) 1. ckd , Cr fluctating due to diuresis 2. acute CHF, acute on chronic diastolic CHF, ECHO showed EF 60% with stage II diastoilc dysfunction better 3. H/o HTN 4. H/o HL 5. Anemia of CKD 6. H/o history of CHF, atrial fibrillation, diabetes, hypothyroidism, CKD, GI bleed, pacemaker, 7 Pneumonia 8 resp failure likely secondary to CHF/pneumonia 9 hypokalemia better plan -Off of IV Lasix due to worsening creatinine -Continue with Lasix 20 patient is relatively stable -Renally dose all meds. -Avoid nephrotoxic's Consultation Date/Type/Reason Admit Date/Time Feb 02, 2019 at 10:08 Initial Consult Date 02/02/19 Requesting Provider: ANDREA KHAN NP Date/Time of Note DATE: 02/08/19 TIME: 14:36 24 HR Interval Summary Free Text/Dictation Feels a lot better today. Answering all questions appropriately BREATHING Is improved Exam/Review of Systems Exam Vitals Vital Signs Date Temp Pulse Resp B/P (MAP) Pulse Ox O2 O2 Flow FiO2 Time Delivery Rate 02/08/19 98.5 60 16 104/53 98 14:19 (70) 02/08/19 Nasal 3.0 09:00 Cannula Intake and Output 02/07/19 02/07/19 02/08/19 1414:59 22:59 06:59 IntakeIntake Total 340 ml 430 ml 460 ml BalanceBalance 340 ml 430 ml 460 ml Exam Respiratory: clear to auscultation Cardiovascular: regular rate and rhythm Gastrointestinal: soft Genitourinary - Female: nl adnexae Musculoskeletal: nl extremities to inspection Neurological: CARBIDE TOOL MAKER II-XII intact Results Result Diagram: 02/07/197 02/07/19436 Results 24hrs Laboratory Tests Test 02/07/19 17:26 02/07/19 20:51 02/08/19 08:11 02/08/19 09:10 Bedside Glucose 172 153 152 Vancomycin Level 10.6 Trough Test 02/08/19 12:20 Bedside Glucose 151 Medications Medication Current Medications IV Flush (NS 3 ml) 3 ml PER PROTOCOL IV ; Start 02/01/19 at 05:00 Ondansetron HCl (Zofran Inj) 4 mg Q6H PRN IV NAUSEA/VOMITING Last administered on 02/06/19 16:21; Admin Dose 4 MG; Start 02/01/19 at 05:00 Nitroglycerin (Nitroglycerin (Sl Tab) 0.4 Mg) 1 tab Q5M PRN SL .CHEST PAIN; Start 02/01/19 at 05:00 Acetaminophen (Tylenol Tab) 650 mg Q6H PRN PO .PAIN 1-3 OR TEMP Last administered on 02/03/19 23:12; Admin Dose 650 MG; Start 02/01/19 at 05:00 Albuterol/ Ipratropium (Duoneb) 3 ml Q2H RESP THERAPY PRN HHN SHORTNESS OF BREATH Last administered on 02/02/19 04:30; Admin Dose 3 ML; Start 02/01/19 at 05:00 Diagnostic Test (Pha) (Accu-Chek) 1 ea 02 XX ; Start 02/02/19 at 02:00 Ferrous Sulfate (Ferrous Sulfate (Ec)) 325 mg BID PO Last administered on 02/08/19 09:22; Admin Dose 325 MG; Start 02/01/19 at 09:00; Stop 03/03/19 at 08:59 Hydrocodone Bit/ Homatropine Methylb (Hycodan Liquid) 5 ml DAILY PRN PO COUGH Last administered on 02/04/19 21:20; Admin Dose 5 ML; Start 02/01/19 at 05:00 Levothyroxine Sodium (Synthroid) 75 mcg BEFORE BREAKFAST PO Last administered on 02/08/19 06:21; Admin Dose 75 MCG; Start 02/01/19 at 07:00 Lubiprostone (Amitiza) 24 mcg WITH BREAKFAST DINNE PO Last administered on 02/08/19 09:21; Admin Dose 24 MCG; Start 02/01/19 at 08:00 Meclizine HCl (Antivert) 25 mg TID PO Last administered on 02/08/19 13:22; Admin Dose 25 MG; Start 02/01/19 at 09:00 Polyethylene Glycol (Miralax) 17 gm DAILY PO Last administered on 02/08/19 09:22; Admin Dose 17 GM; Start 02/01/19 at 09:00 Sotalol HCl (Betapace) 40 mg BID PO Last administered on 02/08/19 09:23; Admin Dose 40 MG; Start 02/01/19 at 09:00 Pantoprazole (Protonix Tab) 40 mg DAILY@06 PO Last administered on 02/08/19at 06:21; Admin Dose 40 MG; Start 02/01/19 at 06:00 Miscellaneous Information 1 ea NOTE XX ; Start 02/01/19 at 05:30 Glucose (Glutose) 15 gm Q15M PRN PO DECREASED GLUCOSE; Start 02/01/19 at 05:30 Glucose (Glutose) 22.5 gm Q15M PRN PO DECREASED GLUCOSE; Start 02/01/19 at 05:30 Dextrose (D50w Syringe) 25 ml Q15M PRN IV DECREASED GLUCOSE Last administered on 02/07/19at 08:24; Admin Dose 25 ML; Start 02/01/19 at 05:30 Dextrose (D50w Syringe) 50 ml Q15M PRN IV DECREASED GLUCOSE; Start 02/01/19 at 05:30 Glucagon (Glucagen) 1 mg Q15M PRN IM DECREASED GLUCOSE; Start 02/01/19 at 05:30 Glucose (Glutose) 15 gm Q15M PRN BUCCAL DECREASED GLUCOSE; Start 02/01/19 at 05:30 Docusate Sodium (Colace Liquid Cup) 100 mg DAILY PO Last administered on 02/08/19 09:22; Admin Dose 100 MG; Start 02/01/19 at 13:30 Patient Own Medication 1 ea HS BOTH EYES Last administered on 02/07/19at 20:52; Admin Dose 1 EA; Start 02/01/19 at 21:00 Patient Own Medication 1 ea BID BOTH EYES Last administered on 02/08/19 09:22; Admin Dose 1 EA; Start 02/01/19 at 21:00 Apixaban (Eliquis) 2.5 mg BID PO Last administered on 02/08/19 09:23; Admin Dose 2.5 MG; Start 02/01/19 at 21:00 Benzonatate (Tessalon) 100 mg TID PRN PO COUGH Last administered on 02/06/19at 01:08; Admin Dose 100 MG; Start 02/02/19 at 02:30 Vancomycin HCl (Vanco Iv Per Pharmacy) VANCOMYCIN PER PHARMACY PER PROTOCOL XX ; Start 02/02/19 at 06:30; Stop 02/14/19 at 08:59 Eye Lubricant (Refresh Plus) 1 drop Q4H PRN BOTH EYES .DRY EYES; Start 02/02/19 at 10:00 Allopurinol (Zyloprim) 100 mg DAILY PO Last administered on 02/08/19 09:22; Admin Dose 100 MG; Start 02/02/19 at 10:30 Linagliptin (Tradjenta) 5 mg DAILY PO Last administered on 02/08/19 09:22; Admin Dose 5 MG; Start 02/02/19 at 10:30 Gentamicin Sulfate (Gentamicin 0.3% Oph Drop) 1 drop Q4 RIGHT EYE Last adminis tered on 02/08/19 13:22; Admin Dose 1 DROP; Start 02/02/19 at 13:00 Albuterol/ Ipratropium (Duoneb) 3 ml Q4H RESP THERAPY HHN Last administered on 02/08/19 10:34; Admin Dose 3 ML; Start 02/02/19 at 13:00 Insulin Aspart (Novolog Insulin Pen) NOVOLOG *MILD* ALGORITHM AC MEALS AND BEDTIME SC Last administered on 02/08/19 12:26; Admin Dose 1 UNIT; Start 02/03/19 at 17:30 Acetylcysteine (Mucomyst) 1 ml BID NEB Last administered on 02/08/19 10:31; Admin Dose 1 ML; Start 02/05/19 at 21:00 Tiotropium [place] (Spiriva) 1 inh DAILY INH Last administered on 02/08/19 09:22; Admin Dose 1 INH; Start 02/06/19 at 17:00 Doxycycline Hyclate (Vibramycin) 100 mg BID PO ; Start 02/08/19 at 21:00; Stop 02/13/19 at 20:59 Metronidazole (Flagyl) 500 mg Q8 PO ; Start 02/08/19 at 14:00; Stop 02/13/19 at 13:59 Furosemide (Lasix) 20 mg DAILY PO ; Start 02/09/19 at 09:00 JESSE CABEZAS MD Feb 08, 2019 14:39
--- NOTE | 2019-02-08 17:17 | CONS ---
Assessment/Plan Assessment/Plan Hospital Course (Demo Recall) IMP: 1.AF-Paced when last on tele. on eliquis 2.PPM-no signs of dysfunction at this time 3.HTN 4.DM 5.sob-likley PNA with possible component of CHF-diastolic EF 60% by echo this admit 6. Hypothyroid 7. PNA by chest CT 8. Renal failure-slight worsening Recc: -Now on med surg -serial ecg's -Continue sotalol as tolerated only and follow QTc on sotalol -Continue abx's and f/u cx data -Follow volume status clsoely with lasix now decreased to 20 po daily -Continue bronchodilators Consultation Date/Type/Reason Admit Date/Time Feb 02, 2019 at 10:08 Initial Consult Date 02/02/19 Type of Consult Cardiology Reason for Consultation PPM Requesting Provider: ANDREA KHAN NP Date/Time of Note DATE: 02/08/19 TIME: 17:15 Exam/Review of Systems Vital Signs Vitals Vital Signs Date Temp Pulse Resp B/P (MAP) Pulse Ox O2 O2 Flow FiO2 Time Delivery Rate 02/08/19 98.5 60 16 104/53 98 14:19 (70) 02/08/19 Nasal 3.0 09:00 Cannula Intake and Output 02/07/19 02/07/19 02/08/19 1414:59 22:59 06:59 IntakeIntake Total 340 ml 430 ml 460 ml BalanceBalance 340 ml 430 ml 460 ml Exam Exam Review of Systems: CONSTITUTIONAL: No fevers, chills. PULMONARY: No sob CARDIOVASCULAR: No chest pain/palpitations GASTROINTESTINAL: No nausea/vomiting. GENITOURINARY: No hematuria/dysuria. MUSCULOSKELETAL: No myagias/arthalgias. PSYCHIATRIC: The patient denies depression. NEUROLOGIC: No weakness Constitutional: alert Psych: no complaints Head: normocephalic ENMT: mucosa pink and moist Neck: supple, jvd (9 cm water) Respiratory: diminished breath sounds (at bases/B) Cardiovascular: regular rate and rhythm Gastrointestinal: soft, non-tender Musculoskeletal: muscle weakness (mild generalized) Extremities: edema (trace/B) Neurological: lethargic Labs Result Diagram: 02/07/19 0437 02/07/19 0437 Results 24hrs Laboratory Tests Test 02/07/19 17:26 02/07/19 20:51 02/08/19 08:11 02/08/19 09:10 Bedside Glucose 172 153 152 Vancomycin Level 10.6 Trough Test 02/08/19 12:20 Bedside Glucose 151 Medications Medications Current Medications IV Flush (NS 3 ml) 3 ml PER PROTOCOL IV ; Start 02/01/19 at 05:00 Ondansetron HCl (Zofran Inj) 4 mg Q6H PRN IV NAUSEA/VOMITING Last administered on 02/06/19 16:21; Admin Dose 4 MG; Start 02/01/19 at 05:00 Nitroglycerin (Nitroglycerin (Sl Tab) 0.4 Mg) 1 tab Q5M PRN SL .CHEST PAIN; Start 02/01/19 at 05:00 Acetaminophen (Tylenol Tab) 650 mg Q6H PRN PO .PAIN 1-3 OR TEMP Last administered on 02/03/19 23:12; Admin Dose 650 MG; Start 02/01/19 at 05:00 Albuterol/ Ipratropium (Duoneb) 3 ml Q2H RESP THERAPY PRN HHN SHORTNESS OF BREATH Last administered on 02/02/19 04:30; Admin Dose 3 ML; Start 02/01/19 at 05:00 Diagnostic Test (Pha) (Accu-Chek) 1 ea 02 XX ; Start 02/02/19 at 02:00 Ferrous Sulfate (Ferrous Sulfate (Ec)) 325 mg BID PO Last administered on 02/08/19 09:22; Admin Dose 325 MG; Start 02/01/19 at 09:00; Stop 03/03/19 at 08:59 Hydrocodone Bit/ Homatropine Methylb (Hycodan Liquid) 5 ml DAILY PRN PO COUGH Last administered on 02/04/19 21:20; Admin Dose 5 ML; Start 02/01/19 at 05:00 Levothyroxine Sodium (Synthroid) 75 mcg BEFORE BREAKFAST PO Last administered on 02/08/19 06:21; Admin Dose 75 MCG; Start 02/01/19 at 07:00 Lubiprostone (Amitiza) 24 mcg WITH BREAKFAST DINNE PO Last administered on 02/08/19 09:21; Admin Dose 24 MCG; Start 02/01/19 at 08:00 Meclizine HCl (Antivert) 25 mg TID PO Last administered on 02/08/19 13:22; Admin Dose 25 MG; Start 02/01/19 at 09:00 Polyethylene Glycol (Miralax) 17 gm DAILY PO Last administered on 02/08/19 09:22; Admin Dose 17 GM; Start 02/01/19 at 09:00 Sotalol HCl (Betapace) 40 mg BID PO Last administered on 02/08/19 09:23; Admin Dose 40 MG; Start 02/01/19 at 09:00 Pantoprazole (Protonix Tab) 40 mg DAILY@06 PO Last administered on 02/08/19 06 :21; Admin Dose 40 MG; Start 02/01/19 at 06:00 Miscellaneous Information 1 ea NOTE XX ; Start 02/01/19 at 05:30 Glucose (Glutose) 15 gm Q15M PRN PO DECREASED GLUCOSE; Start 02/01/19 at 05:30 Glucose (Glutose) 22.5 gm Q15M PRN PO DECREASED GLUCOSE; Start 02/01/19 at 05:30 Dextrose (D50w Syringe) 25 ml Q15M PRN IV DECREASED GLUCOSE Last administered on 02/07/19 08:24; Admin Dose 25 ML; Start 02/01/19 at 05:30 Dextrose (D50w Syringe) 50 ml Q15M PRN IV DECREASED GLUCOSE; Start 02/01/19 at 05:30 Glucagon (Glucagen) 1 mg Q15M PRN IM DECREASED GLUCOSE; Start 02/01/19 at 05:30 Glucose (Glutose) 15 gm Q15M PRN BUCCAL DECREASED GLUCOSE; Start 02/01/19 at 05:30 Docusate Sodium (Colace Liquid Cup) 100 mg DAILY PO Last administered on 02/08/19 09:22; Admin Dose 100 MG; Start 02/01/19 at 13:30 Patient Own Medication 1 ea HS BOTH EYES Last administered on 02/07/19 20:52; Admin Dose 1 EA; Start 02/01/19 at 21:00 Patient Own Medication 1 ea BID BOTH EYES Last administered on 02/08/19 09:22; Admin Dose 1 EA; Start 02/01/19 at 21:00 Apixaban (Eliquis) 2.5 mg BID PO Last administered on 02/08/19 09:23; Admin Dose 2.5 MG; Start 02/01/19 at 21:00 Benzonatate (Tessalon) 100 mg TID PRN PO COUGH Last administered on 02/06/19 01:08; Admin Dose 100 MG; Start 02/02/19 at 02:30 Vancomycin HCl (Vanco Iv Per Pharmacy) VANCOMYCIN PER PHARMACY PER PROTOCOL XX ; Start 02/02/19 at 06:30; Stop 02/14/19 at 08:59 Eye Lubricant (Refresh Plus) 1 drop Q4H PRN BOTH EYES .DRY EYES; Start 02/02/19 at 10:00 Allopurinol (Zyloprim) 100 mg DAILY PO Last administered on 02/08/19 09:22; Admin Dose 100 MG; Start 02/02/19 at 10:30 Linagliptin (Tradjenta) 5 mg DAILY PO Last administered on 02/08/19 09:22; Admin Dose 5 MG; Start 02/02/19 at 10:30 Gentamicin Sulfate (Gentamicin 0.3% Oph Drop) 1 drop Q4 RIGHT EYE Last a dministered on 02/08/19 13:22; Admin Dose 1 DROP; Start 02/02/19 at 13:00 Albuterol/ Ipratropium (Duoneb) 3 ml Q4H RESP THERAPY HHN Last administered on 02/08/19 16:38; Admin Dose 3 ML; Start 02/02/19 at 13:00 Insulin Aspart (Novolog Insulin Pen) NOVOLOG *MILD* ALGORITHM AC MEALS AND BEDTIME SC Last administered on 02/08/19 12:26; Admin Dose 1 UNIT; Start 02/03/19 at 17:30 Acetylcysteine (Mucomyst) 1 ml BID NEB Last administered on 02/08/19 10:31; Admin Dose 1 ML; Start 02/05/19 at 21:00 Tiotropium [place] (Spiriva) 1 inh DAILY INH Last administered on 02/08/19 09:22; Admin Dose 1 INH; Start 02/06/19 at 17:00 Doxycycline Hyclate (Vibramycin) 100 mg BID PO ; Start 02/08/19 at 21:00; Stop 02/13/19 at 20:59 Metronidazole (Flagyl) 500 mg Q8 PO ; Start 02/08/19 at 14:00; Stop 02/13/19 at 13:59 Furosemide (Lasix) 20 mg DAILY PO ; Start 02/09/19 at 09:00 SHAWANDA LUGO Feb 08, 2019 17:17
[2019-02-08] MEDS: metroNIDAZOLE 500 MG TAB PO SCH ×2 (17:32→23:27)
--- NOTE | 2019-02-08 18:35 | RADRPT ---
Vent Rate: 62 bpm RR Interval: 0 msec ND Interval: 0 msec QRS Duration: 166 msec QT Interval: 484 msec QTC Interval: 491 msec P-R-T [place]: 0 - 0 - 73 degrees AV sequential or dual chamber electronic pacemaker Electronically Signed By: Dayron Gan
[2019-02-08 20:31] VITALS: BP 117/56; PULSE 60; RESP 18
[2019-02-08] MEDS: DOXYCYCLINE 100 MG TAB PO SCH (20:45)
[2019-02-08] MEDS: HYDROCODONE/HOMATROPINE 5ML CUP PO PRN (23:27)
[2019-02-09] MEDS: ALBUTEROL/IPRATROPIUM (NEB) 3 ML AMP HHN SCH ×6 (00:20→20:27)
[2019-02-09] MEDS: GENTAMICIN 0.3% 5 ML OPH RIGHT EYE SCH ×6 (01:00→20:33)
[2019-02-09] MEDS: ACCU-CHEK XX SCH (02:00)
[2019-02-09 02:07] VITALS: BP 134/60; PULSE 59; RESP 20
[2019-02-09] MEDS: PANTOPRAZOLE (EC) 40 MG TAB PO SCH (05:17)
[2019-02-09] MEDS: metroNIDAZOLE 500 MG TAB PO SCH ×3 (05:17→21:15)
[2019-02-09] MEDS: BENZONATATE 100 MG CAP PO PRN (05:17)
[2019-02-09] MEDS: LEVOTHYROXINE 75 MCG TAB PO SCH (07:00)
[2019-02-09] MEDS: INSULIN ASPART [NOVOLOG] 3 ML PEN SC SCH ×4 (07:30→20:36)
[2019-02-09] MEDS: LUBIPROSTONE 24 MCG CAP PO SCH ×2 (08:00→17:43)
[2019-02-09] MEDS: ACETYLCYSTEINE 20% 4 ML VIAL NEB SCH ×2 (08:14→20:27)
[2019-02-09 08:17] VITALS: BP 131/59; PULSE 60; RESP 18
[2019-02-09] MEDS: MECLIZINE 25 MG TAB PO SCH ×3 (09:29→20:32)
[2019-02-09] MEDS: POTASSIUM CHLORIDE 100 ML IVPB SCH ×2 (09:29→17:31)
[2019-02-09] MEDS: SOTALOL 80 MG TAB PO SCH ×2 (09:30→20:34)
[2019-02-09] MEDS: FERROUS SULFATE (EC) 325 MG TAB PO SCH ×2 (09:30→20:32)
[2019-02-09] MEDS: LINAGLIPTIN 5 MG TABLET PO SCH (09:30)
[2019-02-09] MEDS: POLYETHYLENE GLYCOL 17 GM PACKET PO SCH (09:30)
[2019-02-09] MEDS: DOCUSATE SODIUM 10 MG/ML (10ML CUP) PO SCH (09:30)
[2019-02-09] MEDS: FUROSEMIDE 20 MG TAB PO SCH (09:30)
[2019-02-09] MEDS: APIXABAN 5 MG TABLET PO SCH ×2 (09:30→20:32)
[2019-02-09] MEDS: DOXYCYCLINE 100 MG TAB PO SCH ×2 (09:31→20:32)
[2019-02-09] MEDS: PATIENT'S OWN MEDICATION BOTH EYES SCH ×3 (09:31→20:33)
[2019-02-09] MEDS: ALLOPURINOL 100 MG TAB PO SCH (09:31)
[2019-02-09] MEDS: TIOTROPIUM 18 MCG CAPSULE INHA DEV INH SCH (09:31)
--- NOTE | 2019-02-09 10:10 | CONS ---
Consult Date/Type/Reason Admit Date/Time Feb 02, 2019 at 10:08 Initial Consult Date 02/02/19 Requesting Provider: ANDREA KHAN NP Date/Time of Note DATE: 02/09/19 TIME: 10:08 Subjective NO acute events - pt stable - off tele now - will monitor - well diuresed now ROS: No fever, no chills, no nausea, no vomiting, no diarrhea/constipation No recent weight changes No chest pain, no PND, no orthopnea - improved SOB, + weakness No dizziness, blurred vision No thirst, no heat or cold intolerance Objective Vitals Vital Signs Date Temp Pulse Resp B/P (MAP) Pulse Ox O2 O2 Flow FiO2 Time Delivery Rate 02/09/19 60 18 96 Nasal 2.0 08:25 Cannula 02/09/19 97.9 131/59 08:17 (83) Intake and Output 02/08/19 02/08/19 02/09/19 1414:59 22:59 06:59 IntakeIntake Total 950 ml 480 ml 290 ml BalanceBalance 950 ml 480 ml 290 ml Exam General: WN/WD/NAD, AOx 1-2 [place] HEENT: Unicetric/atraumatic/EOMI (does not follow commands) NECK: JVD elevated, no thyromegaly Lymph: no lymphadenopathy HEART: ir with regular with no S3, II/ systolic murmur at apex, pacer LUNGS: Coarse sounds ABD: soft, NT, ND, +BS : Intact Neuro: non focal SKIN: chronic changes EXT: trace edema Results/Medications Result Diagram: 02/09/1952102/09/19521 Results 24 hrs Laboratory Tests Test 02/08/19 12:20 02/08/19 17:31 02/08/19 20:44 02/09/19 05:22 Bedside Glucose 151 165 148 White Blood Count 6.0 # Red Blood Count 2.89 L Hemoglobin 9.2 L Hematocrit 28.4 L Mean Corpuscular 98.3 Volume Mean Corpuscular 31.8 Hemoglobin Mean Corpuscular 32.4 Hemoglobin Concent Red Cell 14.2 Distribution Width Platelet Count 272 Mean Platelet Volume 10.7 H Immature 2.200 H Granulocytes % Neutrophils % 73.8 Lymphocytes % 13.5 L Monocytes % 8.8 Eosinophils % 1.0 Basophils % 0.7 Nucleated Red Blood 0.0 Cells % Immature 0.130 H Granulocytes # Neutrophils # 4.5 Lymphocytes # 0.8 Monocytes # 0.5 Eosinophils # 0.1 Basophils # 0.0 Nucleated Red Blood 0.0 Cells # Sodium Level 144 Potassium Level 2.9 *L Chloride Level 106 Carbon Dioxide Level 29 Anion Gap 9 Blood Urea Nitrogen 33 H Creatinine 1.91 H Est Glomerular Filtrat Rate mL/min Glucose Level 109 Calcium Level 8.3 L Test 02/09/19 08:12 Bedside Glucose 123 Home Meds Active Scripts Neomycin/Polymyxin/Hydrocort* (Cortisporin* Otic) 10 Ml Susp, 4 DROP RIGHT EAR QID for 7 Days, EA Prov:PORFIRIO KHANNA DO 12/19/17 Meclizine Hcl* (Meclizine Hcl*) 25 Mg Tablet, 25 MG PO TID for vertigo, #30 TAB Prov:PORFIRIO KHANNA DO 12/19/17 Levofloxacin* (Levaquin*) 500 Mg Tablet, 500 MG PO DAILY for 7 Days, TAB Prov:PORFIRIO KHANNA DO 12/19/17 Polyethylene Glycol* (Miralax*) 17 Gm Powd.pack, 17 GM PO DAILY for 10 Days Prov:HERSON DAVIS MD 11/27/16 Lubiprostone* (Amitiza*) 24 Mcg Capsule, 24 MCG PO WITH BREAKFAST DINNE for 28 Days, CAP Prov:HERSON DAVIS MD 11/27/16 Ipratropium-Albuterol (Ipratropium-Albuterol) 0.5-3 Mg/3 Ml Ampul.neb, 3 ML HHN Q2H RESP THERAPY PRN for SHORTNESS OF BREATH for 28 Days Prov:HERSON DAVIS MD 11/27/16 Hydrocodone-Homatropine* (Hydrocodone-Homatropine*) 5MG-1.5MG/5 Ml Syrup, 5 ML PO PRN PRN for COUGH for 14 Days Prov:HERSON DAVIS MD 11/27/16 Doxycycline Hyclate* (Doxycycline Hyclate*) 100 Mg Tablet.dr, 100 MG PO BID for pneumonia+ bronchitis , #14 TAB Prov:KEVIN ZHOU MD 11/23/16 Furosemide* (Lasix*) 20 Mg Tablet, 20 MG PO QAM, #90 TAB Prov:KEVIN ZHOU MD 11/23/16 Omeprazole* (Omeprazole*) 20 Mg Capsule.dr, 40 MG PO BID, #60 CAP Prov:RICARDO ARREGUIN MD 11/13/16 Reported Medications Apixaban* (Eliquis*) 2.5 Mg Tablet, 2.5 MG PO BID, TAB 02/01/19 Travoprost* (Travatan Z*) 2.5 Ml Drops, 1 DROP BOTH EYES HS, #1 BOTTLE 02/01/19 Gentamicin Sulfate* (Gentamicin Sulfate* Ophth) 0.3% - 5 Ml Drops, 1 DROP LEFT EYE Q4, EA 02/01/19 Peg 400/Hypromellose/Glycerin (EYE DROP TEARS) 15 Ml Drops, 1 DROP OP Q4 PRN for DRY EYES, BOTTLE 02/01/19 Cyclosporine (Restasis Multidose) 5.5 Ml Drops, 1 DROP OP BID, BOTTLE 02/01/19 Polyethylene Glycol* (Miralax*) 17 Gm Powd.pack, 17 GM PO DAILY, #30 PACKET 11/21/16 Potassium Chloride* (Potassium Chloride*) 8 Meq Capsule.er, 8 MEQ PO every other day, CAP 11/21/16 Docusate Sodium* (Colace*) 250 Mg Capsule, 250 MG PO DAILY, #30 CAP 11/21/16 Ferrous Sulfate* (Ferrous Sulfate*) 325 Mg Tabec, 325 MG PO BID, TAB 11/09/16 Levothyroxine Sodium* (Levothyroxine Sodium*) 75 Mcg Tablet, 75 MCG PO BEFORE BREAKFAST, #30 TAB 09/14/16 Sotalol Hcl* (Sotalol Hcl*) 80 Mg Tablet, 80 MG PO BID, TAB 09/14/16 Sitagliptin Phos/Metformin HCl (Janumet 50-500 mg Tablet) 1 Each Tablet, 1 EACH PO DAILY AM, TAB 09/14/16 Warfarin Sodium* (Coumadin*) 3 Mg Tablet, 3 MG PO DAILY, TAB 09/14/16 Medications Current Medications IV Flush (NS 3 ml) 3 ml PER PROTOCOL IV ; Start 02/01/19 at 05:00 Ondansetron HCl (Zofran Inj) 4 mg Q6H PRN IV NAUSEA/VOMITING Last administered on 02/06/19at 16:21; Admin Dose 4 MG; Start 02/01/19 at 05:00 Nitroglycerin (Nitroglycerin (Sl Tab) 0.4 Mg) 1 tab Q5M PRN SL .CHEST PAIN; Start 02/01/19 at 05:00 Acetaminophen (Tylenol Tab) 650 mg Q6H PRN PO .PAIN 1-3 OR TEMP Last administered on 02/03/19 23:12; Admin Dose 650 MG; Start 02/01/19 at 05:00 Albuterol/ Ipratropium (Duoneb) 3 ml Q2H RESP THERAPY PRN HHN SHORTNESS OF BREATH Last administered on 02/02/19 04:30; Admin Dose 3 ML; Start 02/01/19 at 05:00 Diagnostic Test (Pha) (Accu-Chek) 1 ea 02 XX ; Start 02/02/19 at 02:00 Ferrous Sulfate (Ferrous Sulfate (Ec)) 325 mg BID PO Last administered on 02/09/19 09:30; Admin Dose 325 MG; Start 02/01/19 at 09:00; Stop 03/03/19 at 08:59 Hydrocodone Bit/ Homatropine Methylb (Hycodan Liquid) 5 ml DAILY PRN PO COUGH Last administered on 02/08/19 23:27; Admin Dose 5 ML; Start 02/01/19 at 05:00 Levothyroxine Sodium (Synthroid) 75 mcg BEFORE BREAKFAST PO Last administered on 02/08/19 06:21; Admin Dose 75 MCG; Start 02/01/19 at 07:00 Lubiprostone (Amitiza) 24 mcg WITH BREAKFAST DINNE PO Last administered on 02/09/19 08:00; Admin Dose 24 MCG; Start 02/01/19 at 08:00 Meclizine HCl (Antivert) 25 mg TID PO Last administered on 02/09/19 09:29; Admin Dose 25 MG; Start 02/01/19 at 09:00 Polyethylene Glycol (Miralax) 17 gm DAILY PO Last administered on 02/09/19 09:30; Admin Dose 17 GM; Start 02/01/19 at 09:00 Sotalol HCl (Betapace) 40 mg BID PO Last administered on 02/09/19 09:30; Admin Dose 40 MG; Start 02/01/19 at 09:00 Pantoprazole (Protonix Tab) 40 mg DAILY@06 PO Last administered on 02/09/19 05:17; Admin Dose 40 MG; Start 02/01/19 at 06:00 Miscellaneous Information 1 ea NOTE XX ; Start 02/01/19 at 05:30 Glucose (Glutose) 15 gm Q15M PRN PO DECREASED GLUCOSE; Start 02/01/19 at 05:30 Glucose (Glutose) 22.5 gm Q15M PRN PO DECREASED GLUCOSE; Start 02/01/19 at 05:30 Dextrose (D50w Syringe) 25 ml Q15M PRN IV DECREASED GLUCOSE Last administered on 02/07/19 08:24; Admin Dose 25 ML; Start 02/01/19 at 05:30 Dextrose (D50w Syringe) 50 ml Q15M PRN IV DECREASED GLUCOSE; Start 02/01/19 at 05:30 Glucagon (Glucagen) 1 mg Q15M PRN IM DECREASED GLUCOSE; Start 02/01/19 at 05:30 Glucose (Glutose) 15 gm Q15M PRN BUCCAL DECREASED GLUCOSE; Start 02/01/19 at 05:30 Docusate Sodium (Colace Liquid Cup) 100 mg DAILY PO Last administered on 02/09/19 09:30; Admin Dose 100 MG; Start 02/01/19 at 13:30 Patient Own Medication 1 ea HS BOTH EYES Last administered on 02/08/19 20:52; Admin Dose 1 EA; Start 02/01/19 at 21:00 Patient Own Medication 1 ea BID BOTH EYES Last administered on 02/09/19 09:31; Admin Dose 1 EA; Start 02/01/19 at 21:00 Apixaban (Eliquis) 2.5 mg BID PO Last administered on 02/09/19 09:30; Admin Dose 2.5 MG; Start 02/01/19 at 21:00 Benzonatate (Tessalon) 100 mg TID PRN PO COUGH Last administered on 02/09/19 05:17; Admin Dose 100 MG; Start 02/02/19 at 02:30 Eye Lubricant (Refresh Plus) 1 drop Q4H PRN BOTH EYES .DRY EYES; Start 02/02/19 at 10:00 Allopurinol (Zyloprim) 100 mg DAILY PO Last administered on 02/09/19 09:31; A dmin Dose 100 MG; Start 02/02/19 at 10:30 Linagliptin (Tradjenta) 5 mg DAILY PO Last administered on 02/09/19 09:30; Admin Dose 5 MG; Start 02/02/19 at 10:30 Gentamicin Sulfate (Gentamicin 0.3% Oph Drop) 1 drop Q4 RIGHT EYE Last administered on 02/09/19 09:31; Admin Dose 1 DROP; Start 02/02/19 at 13:00 Albuterol/ Ipratropium (Duoneb) 3 ml Q4H RESP THERAPY HHN Last administered on 02/09/19 08:14; Admin Dose 3 ML; Start 02/02/19 at 13:00 Insulin Aspart (Novolog Insulin Pen) NOVOLOG *MILD* ALGORITHM AC MEALS AND BEDTIME SC Last administered on 02/08/19 17:35; Admin Dose 1 UNIT; Start 02/03/19 at 17:30 Acetylcysteine (Mucomyst) 1 ml BID NEB Last administered on 02/09/19 08:14; Admin Dose 1 ML; Start 02/05/19 at 21:00 Tiotropium [place] (Spiriva) 1 inh DAILY INH Last administered on 02/09/19 09:31; Admin Dose 1 INH; Start 02/06/19 at 17:00 Doxycycline Hyclate (Vibramycin) 100 mg BID PO Last administered on 02/09/19 09:31; Admin Dose 100 MG; Start 02/08/19 at 21:00; Stop 02/13/19 at 20:59 Metronidazole (Flagyl) 500 mg Q8 PO Last administered on 02/09/19 05:17; Admin Dose 500 MG; Start 02/08/19 at 14:00; Stop 02/13/19 at 13:59 Furosemide (Lasix) 20 mg DAILY PO Last administered on 02/09/19 09:30; Admin Dose 20 MG; Start 02/09/19 at 09:00 Potassium Chloride 100 ml @ 50 mls/hr Q2H IVPB Last administered on 02/09/19 09:29; Admin Dose 50 MLS/HR; Start 02/09/19 at 07:00; Stop 02/09/19 at 10:59 Assessment/Plan Hospital Course (Demo Recall) 1. Dyspnea: Multifactorial - better fluid status now, not in CHF by exam. OK to hydrate gently. Now well diuresed. 2. Congestive heart failure- chronic, con't Rx. Better. 3. Paroxysmal atrial fibrillation: Currently in sinus rhythm - paced - on Eliquis. Rate controlled. 4. Sinus syndrome with permanent pacemaker - pacer check was done in the office recently - good fxn. 5. Renal failure: Acute versus chronic - avoid nephrotoxic meds. STable. 6 . History of hypertension - treated. 7. DM - on meds, keep euglycemic. 8. Low K+ - replace now. CARLOS EDUARDO AVILES MD Feb 09, 2019 10:10
[2019-02-09] MEDS: MEGESTROL (40 MG/ML) 10ML CUP PO SCH (10:30)
[2019-02-09] MEDS ORDERED: MEGESTROL 40 MG TAB PO ONE (10:30)
[2019-02-09] MEDS ORDERED: POTASSIUM CHLORIDE 50 ML IVPB SCH (11:00)
--- NOTE | 2019-02-09 11:12 | CONS ---
Consult Date/Type/Reason Admit Date/Time Feb 02, 2019 at 10:08 Initial Consult Date 02/02/19 Type of Consult Pulmonary Requesting Provider: ANDREA KHAN NP Date/Time of Note DATE: 02/09/19 TIME: 11:11 Subjective Patient stable this morning, less shortness of breath. Objective Vital Signs Date Temp Pulse Resp B/P (MAP) Pulse Ox O2 O2 Flow FiO2 Time Delivery Rate 02/09/19 Nasal 3.0 09:00 Cannula 02/09/19 60 18 96 08:25 02/09/19 97.9 131/59 08:17 (83) Intake and Output 02/08/19 02/08/19 02/09/19 1414:59 22:59 06:59 IntakeIntake Total 950 ml 480 ml 290 ml BalanceBalance 950 ml 480 ml 290 ml Exam GENERAL: Frail elderly lady comfortable at rest VITAL SIGNS: per chart NECK: Supple. No JVD or lymphadenopathy. CARDIAC EXAM: S1, S2. No added sounds or murmurs. CHEST: Diminished air entry bilaterally ABDOMEN: Soft, nontender. No guarding or rebound. EXTREMITIES: No cyanosis, clubbing or edema. NEUROLOGIC: Generalized weakness. No focal deficits. Vent Setting Fraction of Inspired Oxygen pe: 30 Results/Medications Result Diagram: 02/09/19 0522 02/09/19521 Results 24 hrs Laboratory Tests Test 02/08/19 12:20 02/08/19 17:31 02/08/19 20:44 02/09/19 05:22 Bedside Glucose 151 165 148 White Blood Count 6.0 # Red Blood Count 2.89 L Hemoglobin 9.2 L Hematocrit 28.4 L Mean Corpuscular 98.3 Volume Mean Corpuscular 31.8 Hemoglobin Mean Corpuscular 32.4 Hemoglobin Concent Red Cell 14.2 Distribution Width Platelet Count 272 Mean Platelet Volume 10.7 H Immature 2.200 H Granulocytes % Neutrophils % 73.8 Lymphocytes % 13.5 L Monocytes % 8.8 Eosinophils % 1.0 Basophils % 0.7 Nucleated Red Blood 0.0 Cells % Immature 0.130 H Granulocytes # Neutrophils # 4.5 Lymphocytes # 0.8 Monocytes # 0.5 Eosinophils # 0.1 Basophils # 0.0 Nucleated Red Blood 0.0 Cells # Sodium Level 144 Potassium Level 2.9 *L Chloride Level 106 Carbon Dioxide Level 29 Anion Gap 9 Blood Urea Nitrogen 33 H Creatinine 1.91 H Est Glomerular Filtrat Rate mL/min Glucose Level 109 Calcium Level 8.3 L Test 02/09/19 08:12 Bedside Glucose 123 Medications Current Medications IV Flush (NS 3 ml) 3 ml PER PROTOCOL IV ; Start 02/01/19 at 05:00 Ondansetron HCl (Zofran Inj) 4 mg Q6H PRN IV NAUSEA/VOMITING Last administered on 02/06/19 16:21; Admin Dose 4 MG; Start 02/01/19 at 05:00 Nitroglycerin (Nitroglycerin (Sl Tab) 0.4 Mg) 1 tab Q5M PRN SL .CHEST PAIN; Start 02/01/19 at 05:00 Acetaminophen (Tylenol Tab) 650 mg Q6H PRN PO .PAIN 1-3 OR TEMP Last administered on 02/03/19 23:12; Admin Dose 650 MG; Start 02/01/19 at 05:00 Albuterol/ Ipratropium (Duoneb) 3 ml Q2H RESP THERAPY PRN HHN SHORTNESS OF BREATH Last administered on 02/02/19 04:30; Admin Dose 3 ML; Start 02/01/19 at 05:00 Diagnostic Test (Pha) (Accu-Chek) 1 ea 02 XX ; Start 02/02/19 at 02:00 Ferrous Sulfate (Ferrous Sulfate (Ec)) 325 mg BID PO Last administered on 02/09/19 09:30; Admin Dose 325 MG; Start 02/01/19 at 09:00; Stop 03/03/19 at 08:59 Hydrocodone Bit/ Homatropine Methylb (Hycodan Liquid) 5 ml DAILY PRN PO COUGH Last administered on 02/08/19 23:27; Admin Dose 5 ML; Start 02/01/19 at 05:00 Levothyroxine Sodium (Synthroid) 75 mcg BEFORE BREAKFAST PO Last administered on 02/08/19 06:21; Admin Dose 75 MCG; Start 02/01/19 at 07:00 Lubiprostone (Amitiza) 24 mcg WITH BREAKFAST DINNE PO Last administered on 02/09/19 08:00; Admin Dose 24 MCG; Start 02/01/19 at 08:00 Meclizine HCl (Antivert) 25 mg TID PO Last administered on 02/09/19 09:29; Admin Dose 25 MG; Start 02/01/19 at 09:00 Polyethylene Glycol (Miralax) 17 gm DAILY PO Last administered on 02/09/19 09:30; Admin Dose 17 GM; Start 02/01/19 at 09:00 Sotalol HCl (Betapace) 40 mg BID PO Last administered on 02/09/19 09:30; Admin Dose 40 MG; Start 02/01/19 at 09:00 Pantoprazole (Protonix Tab) 40 mg DAILY@06 PO Last administered on 02/09/19 05:17; Admin Dose 40 MG; Start 02/01/19 at 06:00 Miscellaneous Information 1 ea NOTE XX ; Start 02/01/19 at 05:30 Glucose (Glutose) 15 gm Q15M PRN PO DECREASED GLUCOSE; Start 02/01/19 at 05:30 Glucose (Glutose) 22.5 gm Q15M PRN PO DECREASED GLUCOSE; Start 02/01/19 at 05:30 Dextrose (D50w Syringe) 25 ml Q15M PRN IV DECREASED GLUCOSE Last administered on 02/07/19 08:24; Admin Dose 25 ML; Start 02/01/19 at 05:30 Dextrose (D50w Syringe) 50 ml Q15M PRN IV DECREASED GLUCOSE; Start 02/01/19 at 05:30 Glucagon (Glucagen) 1 mg Q15M PRN IM DECREASED GLUCOSE; Start 02/01/19 at 05:30 Glucose (Glutose) 15 gm Q15M PRN BUCCAL DECREASED GLUCOSE; Start 02/01/19 at 05:30 Docusate Sodium (Colace Liquid Cup) 100 mg DAILY PO Last administered on 02/09/19 09:30; Admin Dose 100 MG; Start 02/01/19 at 13:30 Patient Own Medication 1 ea HS BOTH EYES Last administered on 02/08/19 20:52; Admin Dose 1 EA; Start 02/01/19 at 21:00 Patient Own Medication 1 ea BID BOTH EYES Last administered on 02/09/19 09:31; Admin Dose 1 EA; Start 02/01/19 at 21:00 Apixaban (Eliquis) 2.5 mg BID PO Last administered on 02/09/19 09:30; Admin Dose 2.5 MG; Start 02/01/19 at 21:00 Benzonatate (Tessalon) 100 mg TID PRN PO COUGH Last administered on 02/09/19 05:17; Admin Dose 100 MG; Start 02/02/19 at 02:30 Eye Lubricant (Refresh Plus) 1 drop Q4H PRN BOTH EYES .DRY EYES; Start 02/02/19 at 10:00 Allopurinol (Zyloprim) 100 mg DAILY PO Last administered on 02/09/19 09:31; Admin Dose 100 MG; Start 02/02/19 at 10:30 Linagliptin (Tradjenta) 5 mg DAILY PO Last administered on 02/09/19 09:30; Admin Dose 5 MG; Start 02/02/19 at 10:30 Gentamicin Sulfate (Gentamicin 0.3% Oph Drop) 1 drop Q4 RIGHT EYE Last administered on 02/09/19 09:31; Admin Dose 1 DROP; Start 02/02/19 at 13:00 Albuterol/ Ipratropium (Duoneb) 3 ml Q4H RESP THERAPY HHN Last administered on 02/09/19 08:14; Admin Dose 3 ML; Start 02/02/19 at 13:00 Insulin Aspart (Novolog Insulin Pen) NOVOLOG *MILD* ALGORITHM AC MEALS AND BEDTIME SC Last administered on 02/08/19 17:35; Admin Dose 1 UNIT; Start 02/03/19 at 17:30 Acetylcysteine (Mucomyst) 1 ml BID NEB Last administered on 02/09/19 08:14; Admin Dose 1 ML; Start 02/05/19 at 21:00 Tiotropium [place] (Spiriva) 1 inh DAILY INH Last administered on 02/09/19 09:31; Admin Dose 1 INH; Start 02/06/19 at 17:00 Doxycycline Hyclate (Vibramycin) 100 mg BID PO Last administered on 02/09/19 09:31; Admin Dose 100 MG; Start 02/08/19 at 21:00; Stop 02/13/19 at 20:59 Metronidazole (Flagyl) 500 mg Q8 PO Last administered on 02/09/19 05:17; Admin Dose 500 MG; Start 02/08/19 at 14:00; Stop 02/13/19 at 13:59 Furosemide (Lasix) 20 mg DAILY PO Last administered on 02/09/19 09:30; Admin Dose 20 MG; Start 02/09/19 at 09:00 Potassium Chloride 50 ml @ 50 mls/hr Q1H IVPB ; Start 02/09/19 at 11:00; Status Hold Megestrol Acetate (Megace Susp) 400 mg DAILY PO ; Start 02/09/19 at 10:30 Assessment/Plan Hospital Course (Demo Recall) Assessment 1. Acute hypoxemic respiratory failure aspiration versus community-acquired pneumonia 2. Encephalopathy toxic metabolic, resolved. 3. Renal insufficiency 4. History of diabetes mellitus 5. history of chronic congestive cardiac failure and atrial fibrillation Recommendations 1. Speech therapy evaluation aspiration precautions 2. Supplemental O2 decrease as tolerated 3. Continue current antibiotics per primary team. dc to ARU or home today. BERNARD MILLER MD, [facility] Feb 09, 2019 11:12
--- NOTE | 2019-02-09 13:42 | CONS ---
Assessment/Plan Assessment/Plan Assessment/Plan (Daily) 1. ckd , Cr fluctating due to diuresis 2. acute CHF, acute on chronic diastolic CHF, ECHO showed EF 60% with stage II diastoilc dysfunction better 3. H/o HTN 4. H/o HL 5. Anemia of CKD 6. H/o history of CHF, atrial fibrillation, diabetes, hypothyroidism, CKD, GI bleed, pacemaker, 7 Pneumonia 8 resp failure likely secondary to CHF/pneumonia 9 hypokalemia better plan -Continue with Lasix 20 patient is relatively stable -Potassium repletion recheck potassium levels in the evening -Renally dose all meds. -Avoid nephrotoxic's Consultation Date/Type/Reason Admit Date/Time Feb 02, 2019 at 10:08 Initial Consult Date 02/02/19 Requesting Provider: ANDREA KHAN NP Date/Time of Note DATE: 02/09/19 TIME: 13:41 24 HR Interval Summary Free Text/Dictation k 2.9 this morning. 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 Results Result Diagram: 02/09/1952102/09/19521 Results 24hrs Laboratory Tests Test 02/08/19 17:31 02/08/19 20:44 02/09/19 05:22 02/09/19 08:12 Bedside Glucose 165 148 123 White Blood Count 6.0 # Red Blood Count 2.89 L Hemoglobin 9.2 L Hematocrit 28.4 L Mean Corpuscular 98.3 Volume Mean Corpuscular 31.8 Hemoglobin Mean Corpuscular 32.4 Hemoglobin Concent Red Cell 14.2 Distribution Width Platelet Count 272 Mean Platelet Volume 10.7 H Immature 2.200 H Granulocytes % Neutrophils % 73.8 Lymphocytes % 13.5 L Monocytes % 8.8 Eosinophils % 1.0 Basophils % 0.7 Nucleated Red Blood 0.0 Cells % Immature 0.130 H Granulocytes # Neutrophils # 4.5 Lymphocytes # 0.8 Monocytes # 0.5 Eosinophils # 0.1 Basophils # 0.0 Nucleated Red Blood 0.0 Cells # Sodium Level 144 Potassium Level 2.9 *L Chloride Level 106 Carbon Dioxide Level 29 Anion Gap 9 Blood Urea Nitrogen 33 H Creatinine 1.91 H Est Glomerular Filtrat Rate mL/min Glucose Level 109 Calcium Level 8.3 L Medications Medication Current Medications IV Flush (NS 3 ml) 3 ml PER PROTOCOL IV ; Start 02/01/19 at 05:00 Ondansetron HCl (Zofran Inj) 4 mg Q6H PRN IV NAUSEA/VOMITING Last administered on 02/06/19 16:21; Admin Dose 4 MG; Start 02/01/19 at 05:00 Nitroglycerin (Nitroglycerin (Sl Tab) 0.4 Mg) 1 tab Q5M PRN SL .CHEST PAIN; Start 02/01/19 at 05:00 Acetaminophen (Tylenol Tab) 650 mg Q6H PRN PO .PAIN 1-3 OR TEMP Last administered on 02/03/19 23:12; Admin Dose 650 MG; Start 02/01/19 at 05:00 Albuterol/ Ipratropium (Duoneb) 3 ml Q2H RESP THERAPY PRN HHN SHORTNESS OF BREATH Last administered on 02/02/19 04:30; Admin Dose 3 ML; Start 02/01/19 at 05:00 Diagnostic Test (Pha) (Accu-Chek) 1 ea 02 XX ; Start 02/02/19 at 02:00 Ferrous Sulfate (Ferrous Sulfate (Ec)) 325 mg BID PO Last administered on 02/09/19 09:30; Admin Dose 325 MG; Start 02/01/19 at 09:00; Stop 03/03/19 at 08:59 Hydrocodone Bit/ Homatropine Methylb (Hycodan Liquid) 5 ml DAILY PRN PO COUGH Last administered on 02/08/19 23:27; Admin Dose 5 ML; Start 02/01/19 at 05:00 Levothyroxine Sodium (Synthroid) 75 mcg BEFORE BREAKFAST PO Last administered on 02/08/19 06:21; Admin Dose 75 MCG; Start 02/01/19 at 07:00 Lubiprostone (Amitiza) 24 mcg WITH BREAKFAST DINNE PO Last administered on 02/09/19 08:00; Admin Dose 24 MCG; Start 02/01/19 at 08:00 Meclizine HCl (Antivert) 25 mg TID PO Last administered on 02/09/19 09:29; Admin Dose 25 MG; Start 02/01/19 at 09:00 Polyethylene Glycol (Miralax) 17 gm DAILY PO Last administered on 02/09/19 09:30; Admin Dose 17 GM; Start 02/01/19 at 09:00 Sotalol HCl (Betapace) 40 mg BID PO Last administered on 02/09/19 09:30; Admin Dose 40 MG; Start 02/01/19 at 09:00 Pantoprazole (Protonix Tab) 40 mg DAILY@06 PO Last administered on 02/09/19 05:17; Admin Dose 40 MG; Start 02/01/19 at 06:00 Miscellaneous Information 1 ea NOTE XX ; Start 02/01/19 at 05:30 Glucose (Glutose) 15 gm Q15M PRN PO DECREASED GLUCOSE; Start 02/01/19 at 05:30 Glucose (Glutose) 22.5 gm Q15M PRN PO DECREASED GLUCOSE; Start 02/01/19 at 05:30 Dextrose (D50w Syringe) 25 ml Q15M PRN IV DECREASED GLUCOSE Last administered on 02/07/19 08:24; Admin Dose 25 ML; Start 02/01/19 at 05:30 Dextrose (D50w Syringe) 50 ml Q15M PRN IV DECREASED GLUCOSE; Start 02/01/19 at 05:30 Glucagon (Glucagen) 1 mg Q15M PRN IM DECREASED GLUCOSE; Start 02/01/19 at 05:30 Glucose (Glutose) 15 gm Q15M PRN BUCCAL DECREASED GLUCOSE; Start 02/01/19 at 05:30 Docusate Sodium (Colace Liquid Cup) 100 mg DAILY PO Last administered on 02/09/19 09:30; Admin Dose 100 MG; Start 02/01/19 at 13:30 Patient Own Medication 1 ea HS BOTH EYES Last administered on 02/08/19 20:52; Admin Dose 1 EA; Start 02/01/19 at 21:00 Patient Own Medication 1 ea BID BOTH EYES Last administered on 02/09/19 09:31; Admin Dose 1 EA; Start 02/01/19 at 21:00 Apixaban (Eliquis) 2.5 mg BID PO Last administered on 02/09/19 09:30; Admin Dose 2.5 MG; Start 02/01/19 at 21:00 Benzonatate (Tessalon) 100 mg TID PRN PO COUGH Last administered on 02/09/19 05:17; Admin Dose 100 MG; Start 02/02/19 at 02:30 Eye Lubricant (Refresh Plus) 1 drop Q4H PRN BOTH EYES .DRY EYES; Start 02/02/19 at 10:00 Allopurinol (Zyloprim) 100 mg DAILY PO Last administered on 02/09/19 09:31; Admin Dose 100 MG; Start 02/02/19 at 10:30 Linagliptin (Tradjenta) 5 mg DAILY PO Last administered on 02/09/19 09:30; Admin Dose 5 MG; Start 02/02/19 at 10:30 Gentamicin Sulfate (Gentamicin 0.3% Oph Drop) 1 drop Q4 RIGHT EYE Last administered on 02/09/19 09:31; Admin Dose 1 DROP; Start 02/02/19 at 13:00 Albuterol/ Ipratropium (Duoneb) 3 ml Q4H RESP THERAPY HHN Last administered on 02/09/19 12:25; Admin Dose 3 ML; Start 02/02/19 at 13:00 Insulin Aspart (Novolog Insulin Pen) NOVOLOG *MILD* ALGORITHM AC MEALS AND BEDTIME SC Last administered on 02/08/19 17:35; Admin Dose 1 UNIT; Start 02/03/19 at 17:30 Acetylcysteine (Mucomyst) 1 ml BID NEB Last administered on 02/09/19 08:14; Admin Dose 1 ML; Start 02/05/19 at 21:00 Tiotropium [place] (Spiriva) 1 inh DAILY INH Last administered on 02/09/19 09:31; Admin Dose 1 INH; Start 02/06/19 at 17:00 Doxycycline Hyclate (Vibramycin) 100 mg BID PO Last administered on 02/09/19 09:31; Admin Dose 100 MG; Start 02/08/19 at 21:00; Stop 02/13/19 at 20:59 Metronidazole (Flagyl) 500 mg Q8 PO Last administered on 02/09/19at 05:17; Admin Dose 500 MG; Start 02/08/19 at 14:00; Stop 02/13/19 at 13:59 Furosemide (Lasix) 20 mg DAILY PO Last administered on 02/09/19at 09:30; Admin Dose 20 MG; Start 02/09/19 at 09:00 Megestrol Acetate (Megace Susp) 400 mg DAILY PO Last administered on 02/09/19at 10:30; Admin Dose 400 MG; Start 02/09/19 at 10:30 Potassium Chloride 50 ml @ 50 mls/hr Q1H IVPB ; Start 02/09/19 at 13:00; Stop 02/09/19 at 15:59 JESSE CABEZAS MD Feb 09, 2019 13:42
[2019-02-09 14:56] VITALS: BP 128/60; PULSE 62; RESP 18
[2019-02-09] MEDS ORDERED: POTASSIUM CHLORIDE (SR) 20 MEQ TAB PO STA (16:07)
--- NOTE | 2019-02-09 16:15 | PN ---
Date/Time of Note Date/Time of Note DATE: 02/09/19 TIME: 16:04 Assessment/Plan VTE Prophylaxis Risk score (from Ns)>0 risk: 5 SCD applied (from Ns): Yes Pharmacological prophylaxis: apixaban Lines/Catheters IV Catheter Type (from Nrs): Peripheral IV Urinary Cath still in place: No Assessment/Plan Assessment/Plan 1. Acute on chronic oxygen dependent hypoxemic respiratory failure, improving 2. Aspiration pneumonia, improving, on doxycycline and flagyl 3.Acute on chronic diastolic congestive heart failure, LVEF 60%, stable 4. Paroxysmal atrial fibrillation., sinus now, on eliquis 5. Acute kidney injury on CKD, stable 6. 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 DMII, on ISS 8. Anemia of CKD, chronic 9. Hypothyroidism, on Synthroid 10. Debility, ARU evaluation 11. Hypokalemia, KCL 12. Pulmonary hypertension, PASP 51 mmHg 14. DVT prophylaxis: Eliquis Result Diagram: 02/09/1922 02/09/1922 Results 24hrs Laboratory Tests Test 02/08/19 17:31 02/08/19 20:44 02/09/19 05:22 02/09/19 08:12 Bedside Glucose 165 148 123 White Blood Count 6.0 # Red Blood Count 2.89 L Hemoglobin 9.2 L Hematocrit 28.4 L Mean Corpuscular 98.3 Volume Mean Corpuscular 31.8 Hemoglobin Mean Corpuscular 32.4 Hemoglobin Concent Red Cell 14.2 Distribution Width Platelet Count 272 Mean Platelet Volume 10.7 H Immature 2.200 H Granulocytes % Neutrophils % 73.8 Lymphocytes % 13.5 L Monocytes % 8.8 Eosinophils % 1.0 Basophils % 0.7 Nucleated Red Blood 0.0 Cells % Immature 0.130 H Granulocytes # Neutrophils # 4.5 Lymphocytes # 0.8 Monocytes # 0.5 Eosinophils # 0.1 Basophils # 0.0 Nucleated Red Blood 0.0 Cells # Sodium Level 144 Potassium Level 2.9 *L Chloride Level 106 Carbon Dioxide Level 29 Anion Gap 9 Blood Urea Nitrogen 33 H Creatinine 1.91 H Est Glomerular Filtrat Rate mL/min Glucose Level 109 Calcium Level 8.3 L Subjective 24 Hr Interval Summary Free Text/Dictation congested cough but denies shortness of breath Exam/Review of Systems Exam Vitals Vital Signs Date Temp Pulse Resp B/P (MAP) Pulse Ox O2 O2 Flow FiO2 Time Delivery Rate 02/09/19 97.9 62 18 128/60 99 Nasal 2.0 14:56 (82) Cannula Intake and Output 02/08/19 02/08/19 02/09/19 1515:00 23:00 07:00 IntakeIntake Total 710 ml 480 ml 290 ml BalanceBalance 710 ml 480 ml 290 ml Constitutional: alert, oriented, well developed Head: normocephalic, atraumatic Eyes: nl conjunctiva, EOMI, nl lids ENMT: nl external ears & nose, nl lips & teeth, nl nasal mucosa & septum Neck: supple, non-tender Respiratory: congested cough Cardiovascular: regular rate and rhythm, nl pulses Gastrointestinal: soft, nl liver, spleen, non-tender Musculoskeletal: nl extremities to inspection Extremities: normal pulses; No calf tenderness, No cyanosis, No clubbing, No edema, No pitting pedal edema, No palpable cord, No tenderness, No other 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, nl mental status, nl speech, nl strength Results Results 24hrs Laboratory Tests Test 02/08/19 17:31 02/08/19 20:44 02/09/19 05:22 02/09/19 08:12 Bedside Glucose 165 148 123 White Blood Count 6.0 # Red Blood Count 2.89 L Hemoglobin 9.2 L Hematocrit 28.4 L Mean Corpuscular 98.3 Volume Mean Corpuscular 31.8 Hemoglobin Mean Corpuscular 32.4 Hemoglobin Concent Red Cell 14.2 Distribution Width Platelet Count 272 Mean Platelet Volume 10.7 H Immature 2.200 H Granulocytes % Neutrophils % 73.8 Lymphocytes % 13.5 L Monocytes % 8.8 Eosinophils % 1.0 Basophils % 0.7 Nucleated Red Blood 0.0 Cells % Immature 0.130 H Granulocytes # Neutrophils # 4.5 Lymphocytes # 0.8 Monocytes # 0.5 Eosinophils # 0.1 Basophils # 0.0 Nucleated Red Blood 0.0 Cells # Sodium Level 144 Potassium Level 2.9 *L Chloride Level 106 Carbon Dioxide Level 29 Anion Gap 9 Blood Urea Nitrogen 33 H Creatinine 1.91 H Est Glomerular Filtrat Rate mL/min Glucose Level 109 Calcium Level 8.3 L Medications Medication Current Medications IV Flush (NS 3 ml) 3 ml PER PROTOCOL IV ; Start 02/01/19 at 05:00 Ondansetron HCl (Zofran Inj) 4 mg Q6H PRN IV NAUSEA/VOMITING Last administered on 02/06/19 16:21; Admin Dose 4 MG; Start 02/01/19 at 05:00 Nitroglycerin (Nitroglycerin (Sl Tab) 0.4 Mg) 1 tab Q5M PRN SL .CHEST PAIN; Start 02/01/19 at 05:00 Acetaminophen (Tylenol Tab) 650 mg Q6H PRN PO .PAIN 1-3 OR TEMP Last administered on 02/03/19 23:12; Admin Dose 650 MG; Start 02/01/19 at 05:00 Albuterol/ Ipratropium (Duoneb) 3 ml Q2H RESP THERAPY PRN HHN SHORTNESS OF BREATH Last administered on 02/02/19 04:30; Admin Dose 3 ML; Start 02/01/19 at 05:00 Diagnostic Test (Pha) (Accu-Chek) 1 ea 02 XX ; Start 02/02/19 at 02:00 Ferrous Sulfate (Ferrous Sulfate (Ec)) 325 mg BID PO Last administered on 02/09/19 09:30; Admin Dose 325 MG; Start 02/01/19 at 09:00; Stop 03/03/19 at 0 8:59 Hydrocodone Bit/ Homatropine Methylb (Hycodan Liquid) 5 ml DAILY PRN PO COUGH Last administered on 02/08/19 23:27; Admin Dose 5 ML; Start 02/01/19 at 05:00 Levothyroxine Sodium (Synthroid) 75 mcg BEFORE BREAKFAST PO Last administered on 02/08/19 06:21; Admin Dose 75 MCG; Start 02/01/19 at 07:00 Lubiprostone (Amitiza) 24 mcg WITH BREAKFAST DINNE PO Last administered on 02/09/19 08:00; Admin Dose 24 MCG; Start 02/01/19 at 08:00 Meclizine HCl (Antivert) 25 mg TID PO Last administered on 02/09/19 13:53; Admin Dose 25 MG; Start 02/01/19 at 09:00 Polyethylene Glycol (Miralax) 17 gm DAILY PO Last administered on 02/09/19 09:30; Admin Dose 17 GM; Start 02/01/19 at 09:00 Sotalol HCl (Betapace) 40 mg BID PO Last administered on 02/09/19 09:30; Admin Dose 40 MG; Start 02/01/19 at 09:00 Pantoprazole (Protonix Tab) 40 mg DAILY@06 PO Last administered on 02/09/19 05:17; Admin Dose 40 MG; Start 02/01/19 at 06:00 Miscellaneous Information 1 ea NOTE XX ; Start 02/01/19 at 05:30 Glucose (Glutose) 15 gm Q15M PRN PO DECREASED GLUCOSE; Start 02/01/19 at 05:30 Glucose (Glutose) 22.5 gm Q15M PRN PO DECREASED GLUCOSE; Start 02/01/19 at 05:30 Dextrose (D50w Syringe) 25 ml Q15M PRN IV DECREASED GLUCOSE Last administered on 02/07/19 08:24; Admin Dose 25 ML; Start 02/01/19 at 05:30 Dextrose (D50w Syringe) 50 ml Q15M PRN IV DECREASED GLUCOSE; Start 02/01/19 at 05:30 Glucagon (Glucagen) 1 mg Q15M PRN IM DECREASED GLUCOSE; Start 02/01/19 at 05:30 Glucose (Glutose) 15 gm Q15M PRN BUCCAL DECREASED GLUCOSE; Start 02/01/19 at 05:30 Docusate Sodium (Colace Liquid Cup) 100 mg DAILY PO Last administered on 02/09/19 09:30; Admin Dose 100 MG; Start 02/01/19 at 13:30 Patient Own Medication 1 ea HS BOTH EYES Last administered on 02/08/19 20:52; Admin Dose 1 EA; Start 02/01/19 at 21:00 Patient Own Medication 1 ea BID BOTH EYES Last administered on 02/09/19 09:31; Admin Dose 1 EA; Start 02/01/19 at 21:00 Apixaban (Eliquis) 2.5 mg BID PO Last administered on 02/09/19 09:30; Admin Dose 2.5 MG; Start 02/01/19 at 21:00 Benzonatate (Tessalon) 100 mg TID PRN PO COUGH Last administered on 02/09/19 05:17; Admin Dose 100 MG; Start 02/02/19 at 02:30 Eye Lubricant (Refresh Plus) 1 drop Q4H PRN BOTH EYES .DRY EYES; Start 02/02/19 at 10:00 Allopurinol (Zyloprim) 100 mg DAILY PO Last administered on 02/09/19 09:31; Admin Dose 100 MG; Start 02/02/19 at 10:30 Linagliptin (Tradjenta) 5 mg DAILY PO Last administered on 02/09/19 09:30; Admin Dose 5 MG; Start 02/02/19 at 10:30 Gentamicin Sulfate (Gentamicin 0.3% Oph Drop) 1 drop Q4 RIGHT EYE Last administered on 02/09/19 13:53; Admin Dose 1 DROP; Start 02/02/19 at 13:00 Albuterol/ Ipratropium (Duoneb) 3 ml Q4H RESP THERAPY HHN Last administered on 02/09/19 12:25; Admin Dose 3 ML; Start 02/02/19 at 13:00 Insulin Aspart (Novolog Insulin Pen) NOVOLOG *MILD* ALGORITHM AC MEALS AND BEDTIME SC Last administered on 02/08/19 17:35; Admin Dose 1 UNIT; Start 02/03/19 at 17:30 Acetylcysteine (Mucomyst) 1 ml BID NEB Last administered on 02/09/19 08:14; Admin Dose 1 ML; Start 02/05/19 at 21:00 Tiotropium Flushing (Spiriva) 1 inh DAILY INH Last administered on 02/09/19 09:31; Admin Dose 1 INH; Start 02/06/19 at 17:00 Doxycycline Hyclate (Vibramycin) 100 mg BID PO Last administered on 02/09/19 09:31; Admin Dose 100 MG; Start 02/08/19 at 21:00; Stop 02/13/19 at 20:59 Metronidazole (Flagyl) 500 mg Q8 PO Last administered on 02/09/19 13:53; Admin Dose 500 MG; Start 02/08/19 at 14:00; Stop 02/13/19 at 13:59 Furosemide (Lasix) 20 mg DAILY PO Last administered on 02/09/19 09:30; Admin Dose 20 MG; Start 02/09/19 at 09:00 Megestrol Acetate (Megace Susp) 400 mg DAILY PO Last administered on 02/09/19 10:30; Admin Dose 400 MG; Start 02/09/19 at 10:30 CHARMAINE MENCHACA MD Feb 09, 2019 16:15
[2019-02-09 20:00] VITALS: BP 125/54; PULSE 61; RESP 18
[2019-02-09] MEDS: POTASSIUM CHLORIDE 50 ML IVPB SCH ×3 (20:30→23:20)
[2019-02-10] MEDS: ALBUTEROL/IPRATROPIUM (NEB) 3 ML AMP HHN SCH ×5 (00:42→16:56)
[2019-02-10] MEDS: GENTAMICIN 0.3% 5 ML OPH RIGHT EYE SCH ×5 (00:53→17:28)
[2019-02-10] MEDS: ACCU-CHEK XX SCH (01:12)
[2019-02-10 02:00] VITALS: BP 135/58; PULSE 65; RESP 18
[2019-02-10] MEDS: PANTOPRAZOLE (EC) 40 MG TAB PO SCH (05:46)
[2019-02-10] MEDS: metroNIDAZOLE 500 MG TAB PO SCH ×2 (05:46→13:54)
[2019-02-10] MEDS: LEVOTHYROXINE 75 MCG TAB PO SCH (06:00)
[2019-02-10] MEDS: INSULIN ASPART [NOVOLOG] 3 ML PEN SC SCH ×3 (07:30→17:30)
[2019-02-10 07:53] VITALS: BP 150/70; PULSE 66; RESP 18
[2019-02-10] MEDS: DOXYCYCLINE 100 MG TAB PO SCH (08:49)
[2019-02-10] MEDS: APIXABAN 5 MG TABLET PO SCH (08:51)
[2019-02-10] MEDS: TIOTROPIUM 18 MCG CAPSULE INHA DEV INH SCH (08:52)
[2019-02-10] MEDS: MECLIZINE 25 MG TAB PO SCH ×2 (08:52→13:54)
[2019-02-10] MEDS: FUROSEMIDE 20 MG TAB PO SCH (08:53)
[2019-02-10] MEDS: FERROUS SULFATE (EC) 325 MG TAB PO SCH (08:54)
[2019-02-10] MEDS: ALLOPURINOL 100 MG TAB PO SCH (08:54)
[2019-02-10] MEDS: LINAGLIPTIN 5 MG TABLET PO SCH (08:54)
[2019-02-10] MEDS: MEGESTROL (40 MG/ML) 10ML CUP PO SCH (08:55)
[2019-02-10] MEDS: DOCUSATE SODIUM 10 MG/ML (10ML CUP) PO SCH (08:55)
[2019-02-10] MEDS: SOTALOL 80 MG TAB PO SCH (08:56)
[2019-02-10] MEDS: PATIENT'S OWN MEDICATION BOTH EYES SCH (08:57)
[2019-02-10] MEDS: POLYETHYLENE GLYCOL 17 GM PACKET PO SCH (08:58)
[2019-02-10] MEDS: ACETYLCYSTEINE 20% 4 ML VIAL NEB SCH (09:00)
[2019-02-10] MEDS: LUBIPROSTONE 24 MCG CAP PO SCH ×2 (09:05→17:27)
--- NOTE | 2019-02-10 11:09 | CONS ---
Consult Date/Type/Reason Admit Date/Time Feb 02, 2019 at 10:08 Initial Consult Date 02/02/19 Type of Consult Pulmonary Requesting Provider: ANDREA KHAN NP Date/Time of Note DATE: 02/10/19 TIME: 11:09 Subjective Sitting up in chair, no shortness of breath. Objective Vital Signs Date Temp Pulse Resp B/P (MAP) Pulse Ox O2 O2 Flow FiO2 Time Delivery Rate 02/10/19 97.8 66 18 150/70 94 07:53 (96) 02/10/19 Nasal 2.0 05:35 Cannula Intake and Output 02/09/19 02/09/19 02/10/19 1515:00 23:00 07:00 IntakeIntake Total 560 ml 550 ml 100 ml OutputOutput Total 150 ml BalanceBalance 560 ml 550 ml -50 ml Exam GENERAL: Frail elderly lady comfortable at rest VITAL SIGNS: per chart NECK: Supple. No JVD or lymphadenopathy. CARDIAC EXAM: S1, S2. No added sounds or murmurs. CHEST: Diminished air entry bilaterally ABDOMEN: Soft, nontender. No guarding or rebound. EXTREMITIES: No cyanosis, clubbing or edema. NEUROLOGIC: Generalized weakness. No focal deficits. Vent Setting Fraction of Inspired Oxygen pe: 30 Results/Medications Result Diagram: 02/10/19 0501 02/10/19 0501 Results 24 hrs Laboratory Tests Test 02/09/19 17:36 02/09/19 20:36 02/10/19 00:58 02/10/19 05:01 Bedside Glucose 186 123 Potassium Level 4.2 4.0 White Blood Count 6.3 Red Blood Count 2.96 L Hemoglobin 9.4 L Hematocrit 29.3 L Mean Corpuscular 99.0 Volume Mean Corpuscular 31.8 Hemoglobin Mean Corpuscular 32.1 Hemoglobin Concent Red Cell 14.5 Distribution Width Platelet Count 273 Mean Platelet Volume 10.6 H Immature 2.600 H Granulocytes % Neutrophils % 72.4 Lymphocytes % 13.8 L Monocytes % 9.0 Eosinophils % 1.4 Basophils % 0.8 Nucleated Red Blood 0.0 Cells % Immature 0.160 H Granulocytes # Neutrophils # 4.5 Lymphocytes # 0.9 Monocytes # 0.6 Eosinophils # 0.1 Basophils # 0.1 Nucleated Red Blood 0.0 Cells # Sodium Level 144 Chloride Level 110 Carbon Dioxide Level 26 Anion Gap 8 Blood Urea Nitrogen 31 H Creatinine 1.67 H Est Glomerular Filtrat Rate mL/min Glucose Level 130 Calcium Level 8.5 Magnesium Level 1.9 Test 02/10/19 08:21 Bedside Glucose 100 Medications Current Medications IV Flush (NS 3 ml) 3 ml PER PROTOCOL IV ; Start 02/01/19 at 05:00 Ondansetron HCl (Zofran Inj) 4 mg Q6H PRN IV NAUSEA/VOMITING Last administered on 02/06/19 16:21; Admin Dose 4 MG; Start 02/01/19 at 05:00 Nitroglycerin (Nitroglycerin (Sl Tab) 0.4 Mg) 1 tab Q5M PRN SL .CHEST PAIN; Start 02/01/19 at 05:00 Acetaminophen (Tylenol Tab) 650 mg Q6H PRN PO .PAIN 1-3 OR TEMP Last administered on 02/03/19 23:12; Admin Dose 650 MG; Start 02/01/19 at 05:00 Albuterol/ Ipratropium (Duoneb) 3 ml Q2H RESP THERAPY PRN HHN SHORTNESS OF BREATH Last administered on 02/02/19 04:30; Admin Dose 3 ML; Start 02/01/19 at 05:00 Diagnostic Test (Pha) (Accu-Chek) 1 ea 02 XX ; Start 02/02/19 at 02:00 Ferrous Sulfate (Ferrous Sulfate (Ec)) 325 mg BID PO Last administered on 02/10/19 08:54; Admin Dose 325 MG; Start 02/01/19 at 09:00; Stop 03/03/19 at 08:59 Hydrocodone Bit/ Homatropine Methylb (Hycodan Liquid) 5 ml DAILY PRN PO COUGH Last administered on 02/08/19 23:27; Admin Dose 5 ML; Start 02/01/19 at 05:00 Levothyroxine Sodium (Synthroid) 75 mcg BEFORE BREAKFAST PO Last administered on 02/10/19 06:00; Admin Dose 75 MCG; Start 02/01/19 at 07:00 Lubiprostone (Amitiza) 24 mcg WITH BREAKFAST DINNE PO Last administered on 02/10/19 09:05; Admin Dose 24 MCG; Start 02/01/19 at 08:00 Meclizine HCl (Antivert) 25 mg TID PO Last administered on 02/10/19 08:52; Admin Dose 25 MG; Start 02/01/19 at 09:00 Polyethylene Glycol (Miralax) 17 gm DAILY PO Last administered on 02/10/19 08:58; Admin Dose 17 GM; Start 02/01/19 at 09:00 Sotalol HCl (Betapace) 40 mg BID PO Last administered on 02/10/19 08:56; Admin Dose 40 MG; Start 02/01/19 at 09:00 Pantoprazole (Protonix Tab) 40 mg DAILY@06 PO Last administered on 02/10/19 05:46; Admin Dose 40 MG; Start 02/01/19 at 06:00 Miscellaneous Information 1 ea NOTE XX ; Start 02/01/19 at 05:30 Glucose (Glutose) 15 gm Q15M PRN PO DECREASED GLUCOSE; Start 02/01/19 at 05:30 Glucose (Glutose) 22.5 gm Q15M PRN PO DECREASED GLUCOSE; Start 02/01/19 at 05:30 Dextrose (D50w Syringe) 25 ml Q15M PRN IV DECREASED GLUCOSE Last administered on 02/07/19 08:24; Admin Dose 25 ML; Start 02/01/19 at 05:30 Dextrose (D50w Syringe) 50 ml Q15M PRN IV DECREASED GLUCOSE; Start 02/01/19 at 05:30 Glucagon (Glucagen) 1 mg Q15M PRN IM DECREASED GLUCOSE; Start 02/01/19 at 05:30 Glucose (Glutose) 15 gm Q15M PRN BUCCAL DECREASED GLUCOSE; Start 02/01/19 at 05:30 Docusate Sodium (Colace Liquid Cup) 100 mg DAILY PO Last administered on 02/10/19 08:55; Admin Dose 100 MG; Start 02/01/19 at 13:30 Patient Own Medication 1 ea HS BOTH EYES Last administered on 02/09/19 20:33; Admin Dose 1 EA; Start 02/01/19 at 21:00 Patient Own Medication 1 ea BID BOTH EYES Last administered on 02/10/19 08:57; Admin Dose 1 EA; Start 02/01/19 at 21:00 Apixaban (Eliquis) 2.5 mg BID PO Last administered on 02/10/19 08:51; Admin Dose 2.5 MG; Start 02/01/19 at 21:00 Benzonatate (Tessalon) 100 mg TID PRN PO COUGH Last administered on 02/09/19 05:17; Admin Dose 100 MG; Start 02/02/19 at 02:30 Eye Lubricant (Refresh Plus) 1 drop Q4H PRN BOTH EYES .DRY EYES; Start 02/02/19 at 10:00 Allopurinol (Zyloprim) 100 mg DAILY PO Last administered on 02/10/19 08:54; Admin Dose 100 MG; Start 02/02/19 at 10:30 Linagliptin (Tradjenta) 5 mg DAILY PO Last administered on 02/10/19 08:54; Admin Dose 5 MG; Start 02/02/19 at 10:30 Gentamicin Sulfate (Gentamicin 0.3% Oph Drop) 1 drop Q4 RIGHT EYE Last administ ered on 02/10/19 08:57; Admin Dose 1 DROP; Start 02/02/19 at 13:00 Albuterol/ Ipratropium (Duoneb) 3 ml Q4H RESP THERAPY HHN Last administered on 02/10/19 05:31; Admin Dose 3 ML; Start 02/02/19 at 13:00 Insulin Aspart (Novolog Insulin Pen) NOVOLOG *MILD* ALGORITHM AC MEALS AND BEDTIME SC Last administered on 02/09/19 17:43; Admin Dose 2 UNIT; Start 02/03/19 at 17:30 Acetylcysteine (Mucomyst) 1 ml BID NEB Last administered on 02/09/19 20:27; Admin Dose 1 ML; Start 02/05/19 at 21:00 Tiotropium [place] (Spiriva) 1 inh DAILY INH Last administered on 02/10/19 08:52; Admin Dose 1 INH; Start 02/06/19 at 17:00 Doxycycline Hyclate (Vibramycin) 100 mg BID PO Last administered on 02/10/19 08:49; Admin Dose 100 MG; Start 02/08/19 at 21:00; Stop 02/13/19 at 20:59 Metronidazole (Flagyl) 500 mg Q8 PO Last administered on 02/10/19 05:46; Admin Dose 500 MG; Start 02/08/19 at 14:00; Stop 02/13/19 at 13:59 Furosemide (Lasix) 20 mg DAILY PO Last administered on 3/13/19at 08:53; Admin Dose 20 MG; Start 02/09/19 at 09:00 Megestrol Acetate (Megace Susp) 400 mg DAILY PO Last administered on 02/10/19at 08:55; Admin Dose 400 MG; Start 02/09/19 at 10:30 Assessment/Plan Hospital Course (Demo Recall) Assessment 1. Acute hypoxemic respiratory failure aspiration versus community-acquired pneumonia 2. Encephalopathy toxic metabolic, resolved. 3. Renal insufficiency 4. History of diabetes mellitus 5. history of chronic congestive cardiac failure and atrial fibrillation Recommendations 1. Speech therapy evaluation aspiration precautions 2. Supplemental O2 decrease as tolerated 3. Continue current antibiotics per primary team. [facility] Feb 10, 2019 11:09
--- NOTE | 2019-02-10 11:50 | CONS ---
Assessment/Plan Assessment/Plan Assessment/Plan (Daily) 1. ckd III with ascute on chronic Cr fluctating due to diuresis 2. acute CHF, acute on chronic diastolic CHF, ECHO showed EF 60% with stage II diastoilc dysfunction better 3. H/o HTN 4. H/o HL 5. Anemia of CKD 6. H/o history of CHF, atrial fibrillation, diabetes, hypothyroidism, CKD, GI bleed, pacemaker, 7 Pneumonia 8 resp failure likely secondary to CHF/pneumonia 9 hypokalemia better plan -Continue with Lasix 20 patient is relatively stable -aniBiotics per primary team -Renally dose all meds. -Avoid nephrotoxic's dc Planning Consultation Date/Type/Reason Admit Date/Time Feb 02, 2019 at 10:08 Initial Consult Date 02/02/19 Requesting Provider: ANDREA KHAN NP Date/Time of Note DATE: 02/10/19 TIME: 11:48 24 HR Interval Summary Free Text/Dictation Is a lot better. 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 Results Result Diagram: 02/10/19 0501 02/10/19 0501 Results 24hrs Laboratory Tests Test 02/09/19 17:36 02/09/19 20:36 02/10/19 00:58 02/10/19 05:01 Bedside Glucose 186 123 Potassium Level 4.2 4.0 White Blood Count 6.3 Red Blood Count 2.96 L Hemoglobin 9.4 L Hematocrit 29.3 L Mean Corpuscular 99.0 Volume Mean Corpuscular 31.8 Hemoglobin Mean Corpuscular 32.1 Hemoglobin Concent Red Cell 14.5 Distribution Width Platelet Count 273 Mean Platelet Volume 10.6 H Immature 2.600 H Granulocytes % Neutrophils % 72.4 Lymphocytes % 13.8 L Monocytes % 9.0 Eosinophils % 1.4 Basophils % 0.8 Nucleated Red Blood 0.0 Cells % Immature 0.160 H Granulocytes # Neutrophils # 4.5 Lymphocytes # 0.9 Monocytes # 0.6 Eosinophils # 0.1 Basophils # 0.1 Nucleated Red Blood 0.0 Cells # Sodium Level 144 Chloride Level 110 Carbon Dioxide Level 26 Anion Gap 8 Blood Urea Nitrogen 31 H Creatinine 1.67 H Est Glomerular Filtrat Rate mL/min Glucose Level 130 Calcium Level 8.5 Magnesium Level 1.9 Test 02/10/19 08:21 Bedside Glucose 100 Medications Medication Current Medications IV Flush (NS 3 ml) 3 ml PER PROTOCOL IV ; Start 02/01/19 at 05:00 Ondansetron HCl (Zofran Inj) 4 mg Q6H PRN IV NAUSEA/VOMITING Last administered on 02/06/19at 16:21; Admin Dose 4 MG; Start 02/01/19 at 05:00 Nitroglycerin (Nitroglycerin (Sl Tab) 0.4 Mg) 1 tab Q5M PRN SL .CHEST PAIN; Start 02/01/19 at 05:00 Acetaminophen (Tylenol Tab) 650 mg Q6H PRN PO .PAIN 1-3 OR TEMP Last administered on 02/03/19at 23:12; Admin Dose 650 MG; Start 02/01/19 at 05:00 Albuterol/ Ipratropium (Duoneb) 3 ml Q2H RESP THERAPY PRN HHN SHORTNESS OF BREATH Last administered on 02/02/19at 04:30; Admin Dose 3 ML; Start 02/01/19 at 05:00 Diagnostic Test (Pha) (Accu-Chek) 1 ea 02 XX ; Start 02/02/19 at 02:00 Ferrous Sulfate (Ferrous Sulfate (Ec)) 325 mg BID PO Last administered on 02/10/19at 08:54; Admin Dose 325 MG; Start 02/01/19 at 09:00; Stop 03/03/19 at 08:59 Hydrocodone Bit/ Homatropine Methylb (Hycodan Liquid) 5 ml DAILY PRN PO COUGH Last administered on 02/08/19at 23:27; Admin Dose 5 ML; Start 02/01/19 at 05:00 Levothyroxine Sodium (Synthroid) 75 mcg BEFORE BREAKFAST PO Last administered on 02/10/19 06:00; Admin Dose 75 MCG; Start 02/01/19 at 07:00 Lubiprostone (Amitiza) 24 mcg WITH BREAKFAST DINNE PO Last administered on 02/10/19 09:05; Admin Dose 24 MCG; Start 02/01/19 at 08:00 Meclizine HCl (Antivert) 25 mg TID PO Last administered on 02/10/19 08:52; Admin Dose 25 MG; Start 02/01/19 at 09:00 Polyethylene Glycol (Miralax) 17 gm DAILY PO Last administered on 02/10/19 08:58; Admin Dose 17 GM; Start 02/01/19 at 09:00 Sotalol HCl (Betapace) 40 mg BID PO Last administered on 02/10/19 08:56; Admin Dose 40 MG; Start 02/01/19 at 09:00 Pantoprazole (Protonix Tab) 40 mg DAILY@06 PO Last administered on 02/10/19 05:46; Admin Dose 40 MG; Start 02/01/19 at 06:00 Miscellaneous Information 1 ea NOTE XX ; Start 02/01/19 at 05:30 Glucose (Glutose) 15 gm Q15M PRN PO DECREASED GLUCOSE; Start 02/01/19 at 05:30 Glucose (Glutose) 22.5 gm Q15M PRN PO DECREASED GLUCOSE; Start 02/01/19 at 05:30 Dextrose (D50w Syringe) 25 ml Q15M PRN IV DECREASED GLUCOSE Last administered on 02/07/19 08:24; Admin Dose 25 ML; Start 02/01/19 at 05:30 Dextrose (D50w Syringe) 50 ml Q15M PRN IV DECREASED GLUCOSE; Start 02/01/19 at 05:30 Glucagon (Glucagen) 1 mg Q15M PRN IM DECREASED GLUCOSE; Start 02/01/19 at 05:30 Glucose (Glutose) 15 gm Q15M PRN BUCCAL DECREASED GLUCOSE; Start 02/01/19 at 05:30 Docusate Sodium (Colace Liquid Cup) 100 mg DAILY PO Last administered on 02/10/19 08:55; Admin Dose 100 MG; Start 02/01/19 at 13:30 Patient Own Medication 1 ea HS BOTH EYES Last administered on 02/09/19 20:33; Admin Dose 1 EA; Start 02/01/19 at 21:00 Patient Own Medication 1 ea BID BOTH EYES Last administered on 02/10/19 08:57; Admin Dose 1 EA; Start 02/01/19 at 21:00 Apixaban (Eliquis) 2.5 mg BID PO Last administered on 02/10/19 08:51; Admin Dose 2.5 MG; Start 02/01/19 at 21:00 Benzonatate (Tessalon) 100 mg TID PRN PO COUGH Last administered on 02/09/19 05:17; Admin Dose 100 MG; Start 02/02/19 at 02:30 Eye Lubricant (Refresh Plus) 1 drop Q4H PRN BOTH EYES .DRY EYES; Start 02/02/19 at 10:00 Allopurinol (Zyloprim) 100 mg DAILY PO Last administered on 02/10/19 08:54; Admin Dose 100 MG; Start 02/02/19 at 10:30 Linagliptin (Tradjenta) 5 mg DAILY PO Last administered on 02/10/19 08:54; Admin Dose 5 MG; Start 02/02/19 at 10:30 Gentamicin Sulfate (Gentamicin 0.3% Oph Drop) 1 drop Q4 RIGHT EYE Last administ ered on 02/10/19 08:57; Admin Dose 1 DROP; Start 02/02/19 at 13:00 Albuterol/ Ipratropium (Duoneb) 3 ml Q4H RESP THERAPY HHN Last administered on 02/10/19 05:31; Admin Dose 3 ML; Start 02/02/19 at 13:00 Insulin Aspart (Novolog Insulin Pen) NOVOLOG *MILD* ALGORITHM AC MEALS AND BEDTIME SC Last administered on 02/09/19 17:43; Admin Dose 2 UNIT; Start 02/03/19 at 17:30 Acetylcysteine (Mucomyst) 1 ml BID NEB Last administered on 02/09/19 20:27; Admin Dose 1 ML; Start 02/05/19 at 21:00 Tiotropium [place] (Spiriva) 1 inh DAILY INH Last administered on 02/10/19 08:52; Admin Dose 1 INH; Start 02/06/19 at 17:00 Doxycycline Hyclate (Vibramycin) 100 mg BID PO Last administered on 02/10/19 08:49; Admin Dose 100 MG; Start 02/08/19 at 21:00; Stop 02/13/19 at 20:59 Metronidazole (Flagyl) 500 mg Q8 PO Last administered on 02/10/19 05:46; Admin Dose 500 MG; Start 02/08/19 at 14:00; Stop 02/13/19 at 13:59 Furosemide (Lasix) 20 mg DAILY PO Last administered on 02/10/19 08:53; Admin Dose 20 MG; Start 02/09/19 at 09:00 Megestrol Acetate (Megace Susp) 400 mg DAILY PO Last administered on 02/10/19 08:55; Admin Dose 400 MG; Start 02/09/19 at 10:30 JESSE CABEZAS MD Feb 10, 2019 11:50
--- NOTE | 2019-02-10 12:54 | PN ---
Date/Time of Note Date/Time of Note DATE: 02/10/19 TIME: 12:41 Assessment/Plan VTE Prophylaxis Risk score (from Ns)>0 risk: 5 SCD applied (from Ns): Yes Pharmacological prophylaxis: apixaban Lines/Catheters IV Catheter Type (from Nrsg): Peripheral IV Urinary Cath still in place: No Assessment/Plan Assessment/Plan 1. Acute on chronic oxygen dependent hypoxemic respiratory failure, improving 2. Aspiration pneumonia, improving, on doxycycline and flagyl 3.Acute on chronic diastolic congestive heart failure, LVEF 60%, stable 4. Paroxysmal atrial fibrillation., sinus now, on eliquis 5. Acute kidney injury on CKD, stable 6. 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 DMII, on ISS 8. Anemia of CKD, chronic 9. Hypothyroidism, on Synthroid 10. Debility, ARU evaluation 11. Pulmonary hypertension, PASP 51 mmHg 12. DVT prophylaxis: Eliquis 14. Awaiting for ARU's decision Result Diagram: 02/10/19 0501 02/10/19 0501 Results 24hrs Laboratory Tests Test 02/09/19 17:36 02/09/19 20:36 02/10/19 00:58 02/10/19 05:01 Bedside Glucose 186 123 Potassium Level 4.2 4.0 White Blood Count 6.3 Red Blood Count 2.96 L Hemoglobin 9.4 L Hematocrit 29.3 L Mean Corpuscular 99.0 Volume Mean Corpuscular 31.8 Hemoglobin Mean Corpuscular 32.1 Hemoglobin Concent Red Cell 14.5 Distribution Width Platelet Count 273 Mean Platelet Volume 10.6 H Immature 2.600 H Granulocytes % Neutrophils % 72.4 Lymphocytes % 13.8 L Monocytes % 9.0 Eosinophils % 1.4 Basophils % 0.8 Nucleated Red Blood 0.0 Cells % Immature 0.160 H Granulocytes # Neutrophils # 4.5 Lymphocytes # 0.9 Monocytes # 0.6 Eosinophils # 0.1 Basophils # 0.1 Nucleated Red Blood 0.0 Cells # Sodium Level 144 Chloride Level 110 Carbon Dioxide Level 26 Anion Gap 8 Blood Urea Nitrogen 31 H Creatinine 1.67 H Est Glomerular Filtrat Rate mL/min Glucose Level 130 Calcium Level 8.5 Magnesium Level 1.9 Test 02/10/19 08:21 02/10/19 12:07 Bedside Glucose 100 156 Subjective 24 Hr Interval Summary Free Text/Dictation no distress, no fever Exam/Review of Systems Exam Vitals Vital Signs Date Temp Pulse Resp B/P (MAP) Pulse Ox O2 O2 Flow FiO2 Time Delivery Rate 02/10/19 Nasal 3.0 10:41 Cannula 02/10/19 97.8 66 18 150/70 94 07:53 (96) Intake and Output 02/09/19 02/09/19 02/10/19 1414:59 22:59 06:59 IntakeIntake Total 560 ml 550 ml 100 ml OutputOutput Total 150 ml BalanceBalance 560 ml 550 ml -50 ml Constitutional: alert, oriented, well developed Psych: no complaints, nl mood/affect Eyes: nl conjunctiva, EOMI, nl lids, PERRL ENMT: nl external ears & nose, nl lips & teeth, nl nasal mucosa & septum Neck: supple, non-tender Respiratory: clear to auscultation Cardiovascular: nl pulses, irregular rhythm Gastrointestinal: soft, nl liver, spleen, non-tender Musculoskeletal: nl extremities to inspection Extremities: normal pulses; No calf tenderness, No cyanosis, No clubbing, No edema, No pitting pedal edema, No palpable cord, No tenderness, No other 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, nl mental status, nl speech Results Results 24hrs Laboratory Tests Test 02/09/19 17:36 02/09/19 20:36 02/10/19 00:58 02/10/19 05:01 Bedside Glucose 186 123 Potassium Level 4.2 4.0 White Blood Count 6.3 Red Blood Count 2.96 L Hemoglobin 9.4 L Hematocrit 29.3 L Mean Corpuscular 99.0 Volume Mean Corpuscular 31.8 Hemoglobin Mean Corpuscular 32.1 Hemoglobin Concent Red Cell 14.5 Distribution Width Platelet Count 273 Mean Platelet Volume 10.6 H Immature 2.600 H Granulocytes % Neutrophils % 72.4 Lymphocytes % 13.8 L Monocytes % 9.0 Eosinophils % 1.4 Basophils % 0.8 Nucleated Red Blood 0.0 Cells % Immature 0.160 H Granulocytes # Neutrophils # 4.5 Lymphocytes # 0.9 Monocytes # 0.6 Eosinophils # 0.1 Basophils # 0.1 Nucleated Red Blood 0.0 Cells # Sodium Level 144 Chloride Level 110 Carbon Dioxide Level 26 Anion Gap 8 Blood Urea Nitrogen 31 H Creatinine 1.67 H Est Glomerular Filtrat Rate mL/min Glucose Level 130 Calcium Level 8.5 Magnesium Level 1.9 Test 02/10/19 08:21 02/10/19 12:07 Bedside Glucose 100 156 Medications Medication Current Medications IV Flush (NS 3 ml) 3 ml PER PROTOCOL IV ; Start 02/01/19 at 05:00 Ondansetron HCl (Zofran Inj) 4 mg Q6H PRN IV NAUSEA/VOMITING Last administered on 02/06/19 16:21; Admin Dose 4 MG; Start 02/01/19 at 05:00 Nitroglycerin (Nitroglycerin (Sl Tab) 0.4 Mg) 1 tab Q5M PRN SL .CHEST PAIN; Start 02/01/19 at 05:00 Acetaminophen (Tylenol Tab) 650 mg Q6H PRN PO .PAIN 1-3 OR TEMP Last administered on 02/03/19 23:12; Admin Dose 650 MG; Start 02/01/19 at 05:00 Albuterol/ Ipratropium (Duoneb) 3 ml Q2H RESP THERAPY PRN HHN SHORTNESS OF BREATH Last administered on 02/02/19 04:30; Admin Dose 3 ML; Start 02/01/19 at 05:00 Diagnostic Test (Pha) (Accu-Chek) 1 ea 02 XX ; Start 02/02/19 at 02:00 Ferrous Sulfate (Ferrous Sulfate (Ec)) 325 mg BID PO Last administered on 02/10/19 08:54; Admin Dose 325 MG; Start 02/01/19 at 09:00; Stop 03/03/19 at 08:59 Hydrocodone Bit/ Homatropine Methylb (Hycodan Liquid) 5 ml DAILY PRN PO COUGH Last administered on 02/08/19 23:27; Admin Dose 5 ML; Start 02/01/19 at 05:00 Levothyroxine Sodium (Synthroid) 75 mcg BEFORE BREAKFAST PO Last administered on 02/10/19 06:00; Admin Dose 75 MCG; Start 02/01/19 at 07:00 Lubiprostone (Amitiza) 24 mcg WITH BREAKFAST DINNE PO Last administered on 02/10/19 09:05; Admin Dose 24 MCG; Start 02/01/19 at 08:00 Meclizine HCl (Antivert) 25 mg TID PO Last administered on 02/10/19 08:52; Admin Dose 25 MG; Start 02/01/19 at 09:00 Polyethylene Glycol (Miralax) 17 gm DAILY PO Last administered on 02/10/19 08:58; Admin Dose 17 GM; Start 02/01/19 at 09:00 Sotalol HCl (Betapace) 40 mg BID PO Last administered on 02/10/19 08:56; Admin Dose 40 MG; Start 02/01/19 at 09:00 Pantoprazole (Protonix Tab) 40 mg DAILY@06 PO Last administered on 02/10/19 0 5:46; Admin Dose 40 MG; Start 02/01/19 at 06:00 Miscellaneous Information 1 ea NOTE XX ; Start 02/01/19 at 05:30 Glucose (Glutose) 15 gm Q15M PRN PO DECREASED GLUCOSE; Start 02/01/19 at 05:30 Glucose (Glutose) 22.5 gm Q15M PRN PO DECREASED GLUCOSE; Start 02/01/19 at 05:30 Dextrose (D50w Syringe) 25 ml Q15M PRN IV DECREASED GLUCOSE Last administered on 02/07/19 08:24; Admin Dose 25 ML; Start 02/01/19 at 05:30 Dextrose (D50w Syringe) 50 ml Q15M PRN IV DECREASED GLUCOSE; Start 02/01/19 at 05:30 Glucagon (Glucagen) 1 mg Q15M PRN IM DECREASED GLUCOSE; Start 02/01/19 at 05:30 Glucose (Glutose) 15 gm Q15M PRN BUCCAL DECREASED GLUCOSE; Start 02/01/19 at 05:30 Docusate Sodium (Colace Liquid Cup) 100 mg DAILY PO Last administered on 02/10/19 08:55; Admin Dose 100 MG; Start 02/01/19 at 13:30 Patient Own Medication 1 ea HS BOTH EYES Last administered on 02/09/19 20:33; Admin Dose 1 EA; Start 02/01/19 at 21:00 Patient Own Medication 1 ea BID BOTH EYES Last administered on 02/10/19 08:57; Admin Dose 1 EA; Start 02/01/19 at 21:00 Apixaban (Eliquis) 2.5 mg BID PO Last administered on 02/10/19 08:51; Admin Dose 2.5 MG; Start 02/01/19 at 21:00 Benzonatate (Tessalon) 100 mg TID PRN PO COUGH Last administered on 02/09/19 05:17; Admin Dose 100 MG; Start 02/02/19 at 02:30 Eye Lubricant (Refresh Plus) 1 drop Q4H PRN BOTH EYES .DRY EYES; Start 02/02/19 at 10:00 Allopurinol (Zyloprim) 100 mg DAILY PO Last administered on 02/10/19 08:54; Admin Dose 100 MG; Start 02/02/19 at 10:30 Linagliptin (Tradjenta) 5 mg DAILY PO Last administered on 02/10/19 08:54; Admin Dose 5 MG; Start 02/02/19 at 10:30 Gentamicin Sulfate (Gentamicin 0.3% Oph Drop) 1 drop Q4 RIGHT EYE Last administered on 02/10/19 08:57; Admin Dose 1 DROP; Start 02/02/19 at 13:00 Albuterol/ Ipratropium (Duoneb) 3 ml Q4H RESP THERAPY HHN Last administered on 02/10/19 05:31; Admin Dose 3 ML; Start 02/02/19 at 13:00 Insulin Aspart (Novolog Insulin Pen) NOVOLOG *MILD* ALGORITHM AC MEALS AND BEDTIME SC Last administered on 02/10/19 12:11; Admin Dose 1 UNIT; Start 02/03/19 at 17:30 Acetylcysteine (Mucomyst) 1 ml BID NEB Last administered on 02/09/19 20:27; Admin Dose 1 ML; Start 02/05/19 at 21:00 Tiotropium [place] (Spiriva) 1 inh DAILY INH Last administered on 02/10/19 08:52; Admin Dose 1 INH; Start 02/06/19 at 17:00 Doxycycline Hyclate (Vibramycin) 100 mg BID PO Last administered on 02/10/19 08:49; Admin Dose 100 MG; Start 02/08/19 at 21:00; Stop 02/13/19 at 20:59 Metronidazole (Flagyl) 500 mg Q8 PO Last administered on 02/10/19 05:46; Admin Dose 500 MG; Start 02/08/19 at 14:00; Stop 02/13/19 at 13:59 Furosemide (Lasix) 20 mg DAILY PO Last administered on 02/10/19 08:53; Admin Dose 20 MG; Start 02/09/19 at 09:00 Megestrol Acetate (Megace Susp) 400 mg DAILY PO Last administered on 02/10/19at 08:55; Admin Dose 400 MG; Start 02/09/19 at 10:30 CHARMAINE MENCHACA MD Feb 10, 2019 12:51
[2019-02-10] MEDS ORDERED: METR500T PO (13:02)
[2019-02-10] MEDS ORDERED: DOXY100T20 PO (13:02)
--- NOTE | 2019-02-10 13:09 | DS ---
Date/Time of Note Date/Time of Note DATE: 02/10/19 TIME: 13:05 Discharge Summary Admission/Discharge Info Admit Date/Time Feb 02, 2019 at 10:08 Discharge Date/Time Discharge Diagnosis 1. Acute on chronic oxygen dependent hypoxemic respiratory failure, improving 2. Aspiration pneumonia, improving, on doxycycline and flagyl for 4 days 3.Acute on chronic diastolic congestive heart failure, LVEF 60%, stable 4. Paroxysmal atrial fibrillation., sinus now, on eliquis 5. Acute kidney injury on CKD, stable 6. 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 DMII, on ISS 8. Anemia of CKD, chronic 9. Hypothyroidism, on Synthroid 10. Debility, ARU evaluation 11. Pulmonary hypertension, PASP 51 mmHg 12. DVT prophylaxis: Eliquis Patient Condition: Stable Hospital Course This is an 88-year-old female with a history of CHF, atrial fibrillation, diabetes, hypothyroidism, CKD, GI bleed, pacemaker, ESBL UTI. Patient was brought to the ER for shortness of breath and cough. Patient has been weak to answer questions, especially when she first came in. No reported chest pain. She was recently hospitalized at [facility] and was discharged to convalescent home. Chest x-ray shows mild CHF and small bilateral pleural effusion. Lab shows a WBC of 11.4, hemoglobin 11, creatinine 1.76 and a BNP of around 12,000. CXR findings is more likely pneumonia related. She is treated with antibiotics, symptoms are improved. She will be transferred to ARU for rehab. Patient has history of CHF. Echocardiography with LVEF 60%. It is considered diastolic and she is small dose of lasix for that. Home Meds Active Scripts Metronidazole* (Flagyl*) 500 Mg Tablet, 500 MG PO Q8 for 4 Days, TAB Prov:CHARMAINE MENCHACA MD 02/10/19 Doxycycline Hyclate* (Doxycycline Hyclate*) 100 Mg Tablet.dr, 100 MG PO BID for pneumonia+ bronchitis for 4 Days, TAB Prov:CHARMAINE MENCHACA MD 02/10/19 Meclizine Hcl* (Meclizine Hcl*) 25 Mg Tablet, 25 MG PO TID for vertigo, #30 TAB Prov:PORFIRIO KHANNA DO 12/19/17 Polyethylene Glycol* (Miralax*) 17 Gm Powd.pack, 17 GM PO DAILY for 10 Days Prov:HERSON DAVIS MD 11/27/16 Lubiprostone* (Amitiza*) 24 Mcg Capsule, 24 MCG PO WITH BREAKFAST DINNE for 28 Days, CAP Prov:HERSON DAVIS MD 11/27/16 Ipratropium-Albuterol (Ipratropium-Albuterol) 0.5-3 Mg/3 Ml Ampul.neb, 3 ML HHN Q2H RESP THERAPY PRN for SHORTNESS OF BREATH for 28 Days Prov:HERSON DAVIS MD 11/27/16 Furosemide* (Lasix*) 20 Mg Tablet, 20 MG PO QAM, #90 TAB Prov:KEVIN ZHOU MD 11/23/16 Omeprazole* (Omeprazole*) 20 Mg Capsule.dr, 40 MG PO BID, #60 CAP Prov:RICARDO ARREGUIN MD 11/13/16 Reported Medications Apixaban* (Eliquis*) 2.5 Mg Tablet, 2.5 MG PO BID, TAB 02/01/19 Travoprost* (Travatan Z*) 2.5 Ml Drops, 1 DROP BOTH EYES HS, #1 BOTTLE 02/01/19 Gentamicin Sulfate* (Gentamicin Sulfate* Ophth) 0.3% - 5 Ml Drops, 1 DROP LEFT EYE Q4, EA 02/01/19 Cyclosporine (Restasis Multidose) 5.5 Ml Drops, 1 DROP OP BID, BOTTLE 02/01/19 Polyethylene Glycol* (Miralax*) 17 Gm Powd.pack, 17 GM PO DAILY, #30 PACKET 11/21/16 Potassium Chloride* (Potassium Chloride*) 8 Meq Capsule.er, 8 MEQ PO every other day, CAP 11/21/16 Docusate Sodium* (Colace*) 250 Mg Capsule, 250 MG PO DAILY, #30 CAP 11/21/16 Ferrous Sulfate* (Ferrous Sulfate*) 325 Mg Tabec, 325 MG PO BID, TAB 11/09/16 Levothyroxine Sodium* (Levothyroxine Sodium*) 75 Mcg Tablet, 75 MCG PO BEFORE BREAKFAST, #30 TAB 09/14/16 Sotalol Hcl* (Sotalol Hcl*) 80 Mg Tablet, 80 MG PO BID, TAB 09/14/16 Sitagliptin Phos/Metformin HCl (Janumet 50-500 mg Tablet) 1 Each Tablet, 1 EACH PO DAILY AM, TAB 09/14/16 Discontinued Reported Medications Peg 400/Hypromellose/Glycerin (EYE DROP TEARS) 15 Ml Drops, 1 DROP OP Q4 PRN for DRY EYES, BOTTLE 02/01/19 Warfarin Sodium* (Coumadin*) 3 Mg Tablet, 3 MG PO DAILY, TAB 09/14/16 Discontinued Scripts Neomycin/Polymyxin/Hydrocort* (Cortisporin* Otic) 10 Ml Susp, 4 DROP RIGHT EAR QID for 7 Days, EA Prov:PORFIRIO KHANNA DO 12/19/17 Levofloxacin* (Levaquin*) 500 Mg Tablet, 500 MG PO DAILY for 7 Days, TAB Prov:PORFIRIO KHANNA DO 12/19/17 Hydrocodone-Homatropine* (Hydrocodone-Homatropine*) 5MG-1.5MG/5 Ml Syrup, 5 ML PO PRN PRN for COUGH for 14 Days Prov:HERSON DAVIS MD 11/27/16 Follow-up Plan follow up with PCP and cardiology Primary Care Provider Christie Plasencia MD Pending Labs Laboratory Tests Test 02/09/19 17:36 02/09/19 20:36 02/10/19 00:58 02/10/19 05:01 Bedside 186 123 Glucose mg/dL (70-220) mg/dL (70-220) Potassium 4.2 4.0 Level mmol/L (3.5-5. mmol/L (3.5-5. 1) 1) White Blood 6.3 Count 10^3/ul (4.8-1 0.8) Red Blood 2.96 Count 10^6/ul (4.20- 5.40) Hemoglobin 9.4 g/dl (12.0-16. 0) Hematocrit 29.3 % (37.0-47.0) Mean 99.0 Corpuscular fl (82.0-101.0 Volume ) Mean 31.8 Corpuscular pg (29.0-33.0) Hemoglobin Mean 32.1 Corpuscular g/dl (32.0-37. Hemoglobin Conc 0) ent Red Cell 14.5 Distribution % (11.5-14.5) Width Platelet Count 273 10^3/UL (140-4 15) Mean Platelet 10.6 Volume fl (7.4-10.4) Immature 2.600 Granulocytes % % (0.001-0.429 ) Neutrophils % 72.4 % (39.0-77.0) Lymphocytes % 13.8 % (15.0-51.0) Monocytes % 9.0 % (0.0-11.0) Eosinophils % 1.4 % (0.0-7.0) Basophils % 0.8 % (0.0-2.0) Nucleated Red 0.0 Blood Cells % /100WBC (0.0-0 .0) Immature 0.160 Granulocytes # 10^3/ul (0.0-0 .031) Neutrophils # 4.5 10^3/ul (1.6-7 .5) Lymphocytes # 0.9 10^3/ul (0.8-2 .9) Monocytes # 0.6 10^3/ul (0.3-0 .9) Eosinophils # 0.1 10^3/ul (0.0-0 .5) Basophils # 0.1 10^3/ul (0.0-0 .1) Nucleated Red 0.0 Blood Cells # 10^3/ul (0.0-0 .0) Sodium Level 144 mmol/L (135-14 4) Chloride Level 110 mmol/L (97-110 ) Carbon Dioxide 26 Level mmol/L (21-31) Anion Gap 8 (5-13) Blood Urea 31 Nitrogen mg/dl (7-20) Creatinine 1.67 mg/dl (0.44-1. 00) Est Glomerular mL/min (>60) Filtrat Rate mL/min Glucose Level 130 mg/dl (70-220) Calcium Level 8.5 mg/dl (8.4-10. 2) Magnesium 1.9 Level mg/dl (1.7-2.5 ) Test 02/10/19 08:21 02/10/19 12:07 Bedside 100 156 Glucose mg/dL (70-220) mg/dL (70-220) CHARMAINE MENCHACA MD Feb 10, 2019 13:09
[2019-02-10 14:29] VITALS: BP 149/57; PULSE 66; RESP 16
--- NOTE | 2019-02-10 14:51 | CONS ---
Assessment/Plan Assessment/Plan Hospital Course (Demo Recall) IMP: 1.AF-Paced when last on tele. on eliquis 2.PPM-no signs of dysfunction at this time 3.HTN-labile 4.DM 5.sob-likley PNA with possible component of CHF-diastolic EF 60% by echo this admit 6. Hypothyroid 7. PNA by chest CT 8. Renal failure-slight worsening Recc: -Now on med surg -serial ecg's -Continue sotalol as tolerated only and follow QTc on sotalol -Continue abx's and f/u cx data -Follow volume status clsoely with lasix now decreased to 20 po daily -start additional antihypertensives -Continue bronchodilators Consultation Date/Type/Reason Admit Date/Time Feb 02, 2019 at 10:08 Initial Consult Date 02/02/19 Type of Consult Cardiology Reason for Consultation AF/PPM Requesting Provider: ANDREA KHAN NP Date/Time of Note DATE: 02/10/19 TIME: 14:49 Exam/Review of Systems Vital Signs Vitals Vital Signs Date Temp Pulse Resp B/P (MAP) Pulse Ox O2 O2 Flow FiO2 Time Delivery Rate 02/10/19 98.0 66 16 149/57 96 14:29 (87) 02/10/19 Nasal 3.0 10:41 Cannula Intake and Output 02/09/19 02/09/19 02/10/19 1515:00 23:00 07:00 IntakeIntake Total 560 ml 550 ml 100 ml OutputOutput Total 150 ml BalanceBalance 560 ml 550 ml -50 ml Exam Exam Review of Systems: CONSTITUTIONAL: No fevers, chills. PULMONARY: No sob CARDIOVASCULAR: No chest pain/palpitations GASTROINTESTINAL: No nausea/vomiting. GENITOURINARY: No hematuria/dysuria. MUSCULOSKELETAL: No myagias/arthalgias. PSYCHIATRIC: The patient denies depression. NEUROLOGIC: No weakness Constitutional: alert Psych: no complaints Head: normocephalic ENMT: mucosa pink and moist Neck: supple, jvd (9 cm water) Respiratory: diminished breath sounds (at bases/B) Cardiovascular: regular rate and rhythm Gastrointestinal: soft, non-tender Musculoskeletal: muscle weakness (generalized) Extremities: edema (trace BIlateral with chronic changes) Labs Result Diagram: 02/10/19 0501 02/10/19 0501 Results 24hrs Laboratory Tests Test 02/09/19 17:36 02/09/19 20:36 02/10/19 00:58 02/10/19 05:01 Bedside Glucose 186 123 Potassium Level 4.2 4.0 White Blood Count 6.3 Red Blood Count 2.96 L Hemoglobin 9.4 L Hematocrit 29.3 L Mean Corpuscular 99.0 Volume Mean Corpuscular 31.8 Hemoglobin Mean Corpuscular 32.1 Hemoglobin Concent Red Cell 14.5 Distribution Width Platelet Count 273 Mean Platelet Volume 10.6 H Immature 2.600 H Granulocytes % Neutrophils % 72.4 Lymphocytes % 13.8 L Monocytes % 9.0 Eosinophils % 1.4 Basophils % 0.8 Nucleated Red Blood 0.0 Cells % Immature 0.160 H Granulocytes # Neutrophils # 4.5 Lymphocytes # 0.9 Monocytes # 0.6 Eosinophils # 0.1 Basophils # 0.1 Nucleated Red Blood 0.0 Cells # Sodium Level 144 Chloride Level 110 Carbon Dioxide Level 26 Anion Gap 8 Blood Urea Nitrogen 31 H Creatinine 1.67 H Est Glomerular Filtrat Rate mL/min Glucose Level 130 Calcium Level 8.5 Magnesium Level 1.9 Test 02/10/19 08:21 02/10/19 12:07 Bedside Glucose 100 156 Medications Medications Current Medications IV Flush (NS 3 ml) 3 ml PER PROTOCOL IV ; Start 02/01/19 at 05:00 Ondansetron HCl (Zofran Inj) 4 mg Q6H PRN IV NAUSEA/VOMITING Last administered on 02/06/19at 16:21; Admin Dose 4 MG; Start 02/01/19 at 05:00 Nitroglycerin (Nitroglycerin (Sl Tab) 0.4 Mg) 1 tab Q5M PRN SL .CHEST PAIN; Start 02/01/19 at 05:00 Acetaminophen (Tylenol Tab) 650 mg Q6H PRN PO .PAIN 1-3 OR TEMP Last administered on 02/03/19at 23:12; Admin Dose 650 MG; Start 02/01/19 at 05:00 Albuterol/ Ipratropium (Duoneb) 3 ml Q2H RESP THERAPY PRN HHN SHORTNESS OF BREATH Last administered on 02/02/19at 04:30; Admin Dose 3 ML; Start 02/01/19 at 05:00 Diagnostic Test (Pha) (Accu-Chek) 1 ea 02 XX ; Start 02/02/19 at 02:00 Ferrous Sulfate (Ferrous Sulfate (Ec)) 325 mg BID PO Last administered on 02/10/19 08:54; Admin Dose 325 MG; Start 02/01/19 at 09:00; Stop 03/03/19 at 08:59 Hydrocodone Bit/ Homatropine Methylb (Hycodan Liquid) 5 ml DAILY PRN PO COUGH Last administered on 02/08/19 23:27; Admin Dose 5 ML; Start 02/01/19 at 05:00 Levothyroxine Sodium (Synthroid) 75 mcg BEFORE BREAKFAST PO Last administered on 02/10/19 06:00; Admin Dose 75 MCG; Start 02/01/19 at 07:00 Lubiprostone (Amitiza) 24 mcg WITH BREAKFAST DINNE PO Last administered on 02/10/19 09:05; Admin Dose 24 MCG; Start 02/01/19 at 08:00 Meclizine HCl (Antivert) 25 mg TID PO Last administered on 02/10/19 13:54; Admin Dose 25 MG; Start 02/01/19 at 09:00 Polyethylene Glycol (Miralax) 17 gm DAILY PO Last administered on 02/10/19 08:58; Admin Dose 17 GM; Start 02/01/19 at 09:00 Sotalol HCl (Betapace) 40 mg BID PO Last administered on 02/10/19 08:56; Admin Dose 40 MG; Start 02/01/19 at 09:00 Pantoprazole (Protonix Tab) 40 mg DAILY@06 PO Last administered on 02/10/19 05:46; Admin Dose 40 MG; Start 02/01/19 at 06:00 Miscellaneous Information 1 ea NOTE XX ; Start 02/01/19 at 05:30 Glucose (Glutose) 15 gm Q15M PRN PO DECREASED GLUCOSE; Start 02/01/19 at 05:30 Glucose (Glutose) 22.5 gm Q15M PRN PO DECREASED GLUCOSE; Start 02/01/19 at 05:30 Dextrose (D50w Syringe) 25 ml Q15M PRN IV DECREASED GLUCOSE Last administered on 02/07/19 08:24; Admin Dose 25 ML; Start 02/01/19 at 05:30 Dextrose (D50w Syringe) 50 ml Q15M PRN IV DECREASED GLUCOSE; Start 02/01/19 at 05:30 Glucagon (Glucagen) 1 mg Q15M PRN IM DECREASED GLUCOSE; Start 02/01/19 at 05:30 Glucose (Glutose) 15 gm Q15M PRN BUCCAL DECREASED GLUCOSE; Start 02/01/19 at 05:30 Docusate Sodium (Colace Liquid Cup) 100 mg DAILY PO Last administered on 02/10/19 08:55; Admin Dose 100 MG; Start 02/01/19 at 13:30 Patient Own Medication 1 ea HS BOTH EYES Last administered on 02/09/19 20:33; Admin Dose 1 EA; Start 02/01/19 at 21:00 Patient Own Medication 1 ea BID BOTH EYES Last administered on 02/10/19 08:57; Admin Dose 1 EA; Start 02/01/19 at 21:00 Apixaban (Eliquis) 2.5 mg BID PO Last administered on 02/10/19 08:51; Admin Dose 2.5 MG; Start 02/01/19 at 21:00 Benzonatate (Tessalon) 100 mg TID PRN PO COUGH Last administered on 02/09/19 05:17; Admin Dose 100 MG; Start 02/02/19 at 02:30 Eye Lubricant (Refresh Plus) 1 drop Q4H PRN BOTH EYES .DRY EYES; Start 02/02/19 at 10:00 Allopurinol (Zyloprim) 100 mg DAILY PO Last administered on 02/10/19 08:54; Admin Dose 100 MG; Start 02/02/19 at 10:30 Linagliptin (Tradjenta) 5 mg DAILY PO Last administered on 02/10/19 08:54; Admin Dose 5 MG; Start 02/02/19 at 10:30 Gentamicin Sulfate (Gentamicin 0.3% Oph Drop) 1 drop Q4 RIGHT EYE Last administered on 02/10/19 13:54; Admin Dose 1 DROP; Start 02/02/19 at 13:00 Albuterol/ Ipratropium (Duoneb) 3 ml Q4H RESP THERAPY HHN Last administered on 02/10/19 05:31; Admin Dose 3 ML; Start 02/02/19 at 13:00 Insulin Aspart (Novolog Insulin Pen) NOVOLOG *MILD* ALGORITHM AC MEALS AND BEDTIME SC Last administered on 02/10/19 12:11; Admin Dose 1 UNIT; Start 02/03/19 at 17:30 Acetylcysteine (Mucomyst) 1 ml BID NEB Last administered on 02/09/19 20:27; A dmin Dose 1 ML; Start 02/05/19 at 21:00 Tiotropium [place] (Spiriva) 1 inh DAILY INH Last administered on 02/10/19 08:52; Admin Dose 1 INH; Start 02/06/19 at 17:00 Doxycycline Hyclate (Vibramycin) 100 mg BID PO Last administered on 02/10/19 08:49; Admin Dose 100 MG; Start 02/08/19 at 21:00; Stop 02/13/19 at 20:59 Metronidazole (Flagyl) 500 mg Q8 PO Last administered on 02/10/19 13:54; Admin Dose 500 MG; Start 02/08/19 at 14:00; Stop 02/13/19 at 13:59 Furosemide (Lasix) 20 mg DAILY PO Last administered on 02/10/19 08:53; Admin Dose 20 MG; Start 02/09/19 at 09:00 Megestrol Acetate (Megace Susp) 400 mg DAILY PO Last administered on 02/10/19 08:55; Admin Dose 400 MG; Start 02/09/19 at 10:30 SHAWANDA LUGO Feb 10, 2019 14:51
== END 2019-02-10 18:30 | DRG 291 ==
LOC: E/R 23:23 → 6WM 02-01 03:14 → OBSVTOIN 02-02 10:08 → PP2 02-05 19:21
PROVIDERS: ADMIT Internal Medicine; ATTEND Internal Medicine
PROC: 4A033R1 Measurement of Arterial Saturation, Peripheral, Percutaneous Approach (ICD-10-PCS; principal; 2019-02-02)
DX: I13.0 Hypertensive heart and chronic kidney disease with heart failure and stage 1 through stage 4 chronic kidney disease, or unspecified chronic kidney disease (principal); J96.21 Acute and chronic respiratory failure with hypoxia; I50.33 Acute on chronic diastolic (congestive) heart failure; J69.0 Pneumonitis due to inhalation of food and vomit; G92 Toxic encephalopathy; N17.9 Acute kidney failure, unspecified; Z68.1 Body mass index [BMI] 19.9 or less, adult; I48.0 Paroxysmal atrial fibrillation; E11.22 Type 2 diabetes mellitus with diabetic chronic kidney disease; E03.9 Hypothyroidism, unspecified; D63.1 Anemia in chronic kidney disease; J45.909 Unspecified asthma, uncomplicated; I48.2 Chronic atrial fibrillation; E87.6 Hypokalemia; N18.3 Chronic kidney disease, stage 3 (moderate); D53.9 Nutritional anemia, unspecified; M10.9 Gout, unspecified; J43.9 Emphysema, unspecified; H40.9 Unspecified glaucoma; Z99.81 Dependence on supplemental oxygen; Z79.01 Long term (current) use of anticoagulants; Z95.0 Presence of cardiac pacemaker
CPT/HCPCS: 36415; 36600; 70360; 71045; 71250; 76775; 80048; 80053; 80061; 80202; 81003; 82306; 82550; 82553; 82570; 82607; 82652; 82728; 82803; 82962; 83036; 83540; 83735; 83880; 84100; 84132; 84300; 84443; 84484; 84560; 85025; 85610; 85730; 87081; 89190; 92526; 92610; 93005; 93306; 94640; 94664; 97116; 97162; 97530; G0378; J1644; J1815; J1940; J2405; J2543; J3370; J3480; J7042

== ENCOUNTER 2019-02-10 16:29 | Inpatient (IN) | payer MEDICARE, BC ==
[~2019-02-10] VITALS: Ht 154.9 cm; Wt 54.2 kg
[~2019-02-10 16:29] MED LIST changes: +APIX2.5T PO; +CYCL5.5D OP; +GENT5DRO28 LEFT EYE; +METR500T PO; +PEG15DRO2 OP; +TRAV2.5D BOTH EYES
[2019-02-10 20:00] VITALS: BP 123/62; PULSE 62; RESP 18
[2019-02-10] MEDS: metroNIDAZOLE 500 MG TAB PO SCH (22:00)
[2019-02-10] MEDS ORDERED: DEXTROSE 50% 50 ML SYRINGE IV PRN ×2 (22:30)
[2019-02-10] MEDS ORDERED: GLUCOSE GEL 15 GRAM TUBE BUCCAL PRN (22:30)
[2019-02-10] MEDS ORDERED: GLUCOSE GEL 15 GRAM TUBE PO PRN ×2 (22:30)
[2019-02-10] MEDS ORDERED: GLUCAGON 1 MG INJ IM PRN (22:30)
[2019-02-10] MEDS ORDERED: CARBOXYMETHYLCELLULOSE 0.5% 0.4 ML OPH BOTH EYES PRN (23:00)
[2019-02-10] MEDS ORDERED: ALBUTEROL/IPRATROPIUM (NEB) 3 ML AMP HHN PRN (23:00)
[2019-02-10] MEDS ORDERED: REFRESH LIQUIGEL BOTH EYES PRN (23:30)
[2019-02-11] MEDS: GENTAMICIN 0.3% 5 ML OPH RIGHT EYE SCH ×6 (01:00→21:00)
[2019-02-11] MEDS: ALBUTEROL/IPRATROPIUM (NEB) 3 ML AMP HHN SCH ×6 (01:44→20:23)
[2019-02-11 02:00] VITALS: BP 118/65; PULSE 65; RESP 18
[2019-02-11] MEDS: ACCUCHECK AT 2AM (Patients on SS coverage) XX SCH (02:46)
[2019-02-11] MEDS: LANSOPRAZOLE 30 MG CAP PO SCH ×2 (06:15→18:21)
[2019-02-11] MEDS: FERROUS SULFATE (EC) 325 MG TAB PO SCH ×2 (06:15→18:21)
[2019-02-11] MEDS: LEVOTHYROXINE 75 MCG TAB PO SCH (06:15)
[2019-02-11] MEDS: metroNIDAZOLE 500 MG TAB PO SCH ×3 (06:15→22:00)
[2019-02-11 07:00] VITALS: BP 126/53; PULSE 73; RESP 18
[2019-02-11] MEDS: Insulin NOVOLOG SS MILD Algorithm (SS with meals and bedtime) SC SCH ×4 (07:05→20:53)
[2019-02-11] MEDS: LUBIPROSTONE 24 MCG CAP PO SCH ×3 (07:35→17:35)
[2019-02-11] MEDS: MECLIZINE 25 MG TAB PO SCH ×3 (09:00→21:00)
[2019-02-11] MEDS ORDERED: CYCLOSPORIN BOTH EYES SCH (09:00)
[2019-02-11] MEDS: POLYETHYLENE GLYCOL 17 GM PACKET PO SCH (10:37)
[2019-02-11] MEDS: LINAGLIPTIN 5 MG TABLET PO SCH (10:37)
[2019-02-11] MEDS: MEGESTROL (40 MG/ML) 10ML CUP PO SCH (10:37)
[2019-02-11] MEDS: DOXYCYCLINE 100 MG TAB PO SCH ×2 (10:37→21:00)
[2019-02-11] MEDS: ALLOPURINOL 100 MG TAB PO SCH (10:38)
[2019-02-11] MEDS: SOTALOL 80 MG TAB PO SCH ×2 (10:38→21:00)
[2019-02-11] MEDS: APIXABAN 5 MG TABLET PO SCH ×2 (10:38→21:00)
[2019-02-11] MEDS: FUROSEMIDE 20 MG TAB PO SCH (10:39)
[2019-02-11] MEDS: TIOTROPIUM 18 MCG CAPSULE INHA DEV INH SCH (10:43)
--- NOTE | 2019-02-11 11:26 | CONS ---
DATE OF ADMISSION: 02/10/2019 DATE OF CONSULTATION: 02/11/2019 REHABILITATION POST ADMISSION PHYSICIAN EVALUATION REHABILITATION IMPAIRMENT CATEGORY: Pulmonary debility secondary to acute on chronic respiratory failure. ACTIVE COMORBIDITIES: 1. Status post aspiration pneumonia. 2. Dysphagia. 3. CHF. 4. Acute on chronic kidney disease. 5. Diabetes mellitus type 2. 6. History of DVT. 7. History of GI bleed. 8. Atrial fibrillation with history of pacemaker. 9. Urinary tract infection. 10. Impairments in self-care and mobility and mild cognitive impairments. HISTORY OF PRESENT ILLNESS: The patient is a pleasant 88-year-old female with a history of multiple medical comorbidities, who was admitted with increased shortness of breath, cough and weakness. Workup was consistent with acute on chronic hypoxemic respiratory failure in addition to aspiration pneumonia and exacerbation of congestive heart failure. The patient's hospital course also notable for atrial fibrillation, acute on chronic kidney disease, anemia and dysphagia. The patient noted to have significant impairments in self-care and mobility as compared to baseline and has been cleared to transfer to the acute rehabilitation unit for comprehensive interdisciplinary rehab care. FUNCTIONAL HISTORY: Prior to recent events, she was independent in self-care tasks and mobility. Currently, she requires moderate assist for self-care and mobility tasks. I have reviewed the preadmission screen and the patient's current functional status is consistent with the preadmission screen. FAMILY AND SOCIAL HISTORY: The patient reportedly lives at home with family and hopes to return there upon discharge. PAST MEDICAL HISTORY: 1. CHF. 2. Atrial fibrillation. 3. Diabetes mellitus. 4. Hypothyroidism. 5. Chronic kidney disease. 6. GI bleed. 7. History of pacemaker placement. 8. History of urinary tract infection. CURRENT MEDICATIONS: 1. Albuterol inhaler. 2. Zyloprim 100 mg p.o. daily. 3. Eliquis 2.5 mg p.o. b.i.d. 4. Insulin sliding scale. 5. Vibramycin 100 mg p.o. b.i.d. 6. Ferrous sulfate 325 p.o. b.i.d. 7. Lasix 20 mg p.o. daily. 8. Gentamicin eye drop. 9. Levothyroxine 75 mcg p.o. q.a.m. 10. Tradjenta 5 mg p.o. daily. 11. Amitiza 24 mcg p.o. b.i.d. 12. Antivert 25 mg p.o. t.i.d. 13. Megace 40 mg p.o. daily. 14. Flagyl 500 mg p.o. q. 8 hours. 15. Omeprazole 40 mg p.o. b.i.d. 16. MiraLax. 17. Betapace 40 mg p.o. b.i.d. 18. Spiriva 1 puff p.o. daily. ALLERGIES: THE PATIENT WITH NO KNOWN DRUG ALLERGIES. PHYSICAL EXAMINATION: VITAL SIGNS: The patient is currently afebrile, with stable vital signs. HEENT: The extraocular motions appear intact. Oropharynx is clear. NECK: Supple. LUNGS: Clear anteriorly. CARDIAC: S1, S2. ABDOMEN: Soft, nontender, positive bowel sounds. NEUROLOGIC: She is awake and alert. She will follow simple 1-step commands with repetition. She demonstrates antigravity strength in bilateral upper extremity and lower extremity. PLAN: The patient has been admitted for comprehensive interdisciplinary acute rehab and is anticipated to tolerate 3 hours of daily therapy in divided doses for at least 5/7 days a week. The treatment plan will include: 1. Physical therapy to focus on bed mobility, transfers, and household ambulation, with a goal of having the patient reach a standby assist level. 2. Occupational therapy to focus on hygiene, grooming, dressing, bathing, and toileting activities with the goal of having the patient reach standby assist level. 3. Rehabilitation nursing for carryover of therapeutic interventions, the goal of continent of bowel and bladder, and the goal of improved skin integrity and patient education with regards to the aforementioned issues. 4. Speech therapy for dysphagia management with the goal of having the patient meet nutritional needs by mouth and appropriate diet. REHABILITATION BARRIER: Dysphagia. INTERVENTION FOR BARRIER: Speech therapy. ESTIMATED LENGTH OF STAY: 14 days. DISPOSITION GOAL: Home. I acknowledge that I performed a full physical examination on this patient within 24 hours of admission to the rehabilitation unit. I believe the patient is a good candidate for comprehensive interdisciplinary rehab care and is anticipated to make reasonable goals in a reasonable period of time as outlined above. Dictated By: ERIC NUÑEZ/JUANA Conf#: [id number] DID#: [id number] CC: BERNARD MILLER MD;*EndCC* MTDD
--- NOTE | 2019-02-11 13:06 | CONS ---
Assessment/Plan Assessment/Plan Hospital Course (Demo Recall) IMP: 1.AF-Paced when last on tele. on eliquis 2.PPM-no signs of dysfunction at this time 3.HTN-labile 4.DM 5.sob-likley PNA with possible component of CHF-diastolic EF 60% by echo this admit 6. Hypothyroid 7. PNA by chest CT 8. Renal failure-slight worsening Recc: -Now in rehab -serial ecg's -Continue sotalol as tolerated only and follow QTc on sotalol -Continue abx's and f/u cx data -Follow volume status clsoely with lasix now decreased to 20 po daily -Hydralazine d/c'd? Follow BP and resume as necessary -Continue bronchodilators Consultation Date/Type/Reason Admit Date/Time Feb 10, 2019 at 18:51 Initial Consult Date 02/11/19 Type of Consult Cardiology Reason for Consultation PPM/HTN Requesting Provider: HERSON DAVIS MD Date/Time of Note DATE: 02/11/19 TIME: 13:02 Exam/Review of Systems Vital Signs Vitals Vital Signs Date Temp Pulse Resp B/P (MAP) Pulse Ox O2 O2 Flow FiO2 Time Delivery Rate 02/11/19 99.1 73 18 126/53 100 Room Air 07:00 (77) 02/11/19 2.0 05:01 Intake and Output 02/10/19 02/10/19 02/11/19 1515:00 23:00 07:00 IntakeIntake Total 750 ml BalanceBalance 750 ml Exam Exam Review of Systems: CONSTITUTIONAL: No fevers, chills. PULMONARY: No sob CARDIOVASCULAR: No chest pain/palpitations GASTROINTESTINAL: No nausea/vomiting. GENITOURINARY: No hematuria/dysuria. MUSCULOSKELETAL: No myagias/arthalgias. PSYCHIATRIC: The patient denies depression. NEUROLOGIC: No weakness Constitutional: alert Psych: no complaints Head: normocephalic ENMT: mucosa pink and moist Neck: supple, jvd Respiratory: diminished breath sounds (at bases/B) Cardiovascular: regular rate and rhythm Gastrointestinal: soft, non-tender Musculoskeletal: muscle weakness (generalized) Extremities: edema (none) Neurological: other (No focal deficits) Labs Result Diagram: 02/11/19 0706 02/11/19 0706 Results 24hrs Laboratory Tests Test 02/11/19 06:00 02/11/19 07:06 02/11/19 07:28 02/11/19 11:38 Urine Color YELLOW Urine Clarity CLEAR Urine pH 5.0 Urine Specific 1.015 [place] Urine Ketones NEGATIVE Urine Nitrite NEGATIVE Urine Bilirubin NEGATIVE Urine Urobilinogen 0.2 E.U./dL Urine Leukocyte NEGATIVE Esterase Urine Microscopic 2-5 RBC Urine Squamous FEW Epithelial Cells Urine Hemoglobin 1+ H Urine Glucose NEGATIVE Urine Total Protein NEGATIVE White Blood Count 5.6 Red Blood Count 3.01 L Hemoglobin 9.6 L Hematocrit 29.8 L Mean Corpuscular 99.0 Volume Mean Corpuscular 31.9 Hemoglobin Mean Corpuscular 32.2 Hemoglobin Concent Red Cell 14.7 H Distribution Width Platelet Count 287 Mean Platelet 10.6 H Volume Immature 1.600 H Granulocytes % Neutrophils % 72.0 Lymphocytes % 13.8 L Monocytes % 10.1 Eosinophils % 1.8 Basophils % 0.7 Nucleated Red Blood 0.0 Cells % Immature 0.090 H Granulocytes # Neutrophils # 4.0 Lymphocytes # 0.8 Monocytes # 0.6 Eosinophils # 0.1 Basophils # 0.0 Nucleated Red Blood 0.0 Cells # Sodium Level 144 Potassium Level 3.6 Chloride Level 111 H Carbon Dioxide 24 Level Anion Gap 9 Blood Urea Nitrogen 22 H Creatinine 1.28 H Est Glomerular Filtrat Rate mL/min Glucose Level 110 Calcium Level 8.7 Total Bilirubin 0.3 Direct Bilirubin 0.00 Indirect Bilirubin 0.3 Aspartate Amino 22 Transf (AST/SGOT) Alanine 21 Aminotransferase (A LT/SGPT) Alkaline 87 Phosphatase Total Protein 5.9 L Albumin 2.7 L Globulin 3.20 Albumin/Globulin 0.84 Ratio Bedside Glucose 107 133 Medications Medications Current Medications Polyethylene Glycol (Miralax) 17 gm DAILY PO Last administered on 02/11/19 10:37; Admin Dose 17 GM; Start 02/11/19 at 09:00 Sotalol HCl (Betapace) 80 mg BID PO Last administered on 02/11/19 10:38; Admin Dose 80 MG; Start 02/11/19 at 09:00 Tiotropium [place] (Spiriva) 1 inh DAILY INH Last administered on 02/11/19 10:43; Admin Dose 1 INH; Start 02/11/19 at 09:00 Lansoprazole (Prevacid) 30 mg BID@0600,1800 PO Last administered on 3/14/19at 06:15; Admin Dose 30 MG; Start 02/11/19 at 06:00 Linagliptin (Tradjenta) 5 mg DAILY PO Last administered on 02/11/19at 10:37; Admin Dose 5 MG; Start 02/11/19 at 09:00 Lubiprostone (Amitiza) 24 mcg WITH BREAKFAST DINNE PO ; Start 02/11/19 at 07:35 Meclizine HCl (Antivert) 25 mg TID PO ; Start 02/11/19 at 09:00 Megestrol Acetate (Megace Susp) 400 mg DAILY PO Last administered on 02/11/19at 10:37; Admin Dose 400 MG; Start 02/11/19 at 09:00 Metronidazole (Flagyl) 500 mg Q8 PO Last administered on 02/11/19at 06:15; Admin Dose 500 MG; Start 02/10/19 at 22:00; Stop 02/14/19 at 14:01 Miscellaneous Information 1 ea NOTE XX ; Start 02/10/19 at 22:30 Glucose (Glutose) 15 gm Q15M PRN PO DECREASED GLUCOSE; Start 02/10/19 at 22:30 Glucose (Glutose) 22.5 gm Q15M PRN PO DECREASED GLUCOSE; Start 02/10/19 at 22:30 Dextrose (D50w Syringe) 25 ml Q15M PRN IV DECREASED GLUCOSE; Start 02/10/19 at 22:30 Dextrose (D50w Syringe) 50 ml Q15M PRN IV DECREASED GLUCOSE; Start 02/10/19 at 22:30 Glucagon (Glucagen) 1 mg Q15M PRN IM DECREASED GLUCOSE; Start 02/10/19 at 22:30 Glucose (Glutose) 15 gm Q15M PRN BUCCAL DECREASED GLUCOSE; Start 02/10/19 at 22:30 Insulin Aspart (Novolog Insulin Pen) (Adult SC Insulin - Mild Algorithm)... AC MEALS AND BEDTIME SC ; Start 02/11/19 at 07:05 Diagnostic Test (Pha) (Accu-Chek) 1 ea 02 XX Last administered on 02/11/19at 02:46; Admin Dose 1 EA; Start 02/11/19 at 02:00 Levothyroxine Sodium (Synthroid) 75 mcg BEFORE BREAKFAST PO Last administered on 02/11/19at 06:15; Admin Dose 75 MCG; Start 02/11/19 at 07:00 Doxycycline Hyclate (Vibramycin) 100 mg BID PO Last administered on 02/11/19 10:37; Admin Dose 100 MG; Start 02/11/19 at 09:00; Stop 02/13/19 at 20:59 Ferrous Sulfate (Ferrous Sulfate (Ec)) 325 mg BID@0600,1800 PO Last administered on 02/11/19 06:15; Admin Dose 325 MG; Start 02/11/19 at 06:00; Stop 03/03/19 at 05:59 Furosemide (Lasix) 20 mg DAILY PO Last administered on 02/11/19 10:39; Admin Dose 20 MG; Start 02/11/19 at 09:00 Gentamicin Sulfate (Gentamicin 0.3% Oph Drop) 1 drop Q4 RIGHT EYE Last administered on 02/11/19 10:37; Admin Dose 1 DROP; Start 02/11/19 at 01:00 Acetaminophen (Tylenol Tab) 650 mg Q6H PRN PO MILD PAIN(1-3)OR ELEVATED TEMP; Start 02/10/19 at 23:00 Albuterol/ Ipratropium (Duoneb) 3 ml Q4H RESP THERAPY HHN Last administered on 02/11/19 05:01; Admin Dose 3 ML; Start 02/11/19 at 01:00 Albuterol/ Ipratropium (Duoneb) 3 ml Q2H RESP THERAPY PRN HHN SHORTNESS OF BREATH; Start 02/10/19 at 23:00 Allopurinol (Zyloprim) 100 mg DAILY PO Last administered on 02/11/19at 10:38; Admin Dose 100 MG; Start 02/11/19 at 09:00 Apixaban (Eliquis) 2.5 mg BID PO Last administered on 02/11/19at 10:38; Admin Dose 2.5 MG; Start 02/11/19 at 09:00 Patient Own Medication 1 ea HS BOTH EYES ; Start 02/11/19 at 21:00; Status UNV Patient Own Medication 1 ea BID BOTH EYES ; Start 02/11/19 at 09:00; Status UNV Non-Formulary Medication 1 DROP BOTH EYES Q4H PRN BOTH EYES DRY EYES; Start 02/10/19 at 23:30 SHAWANDA LUGO 14, 2019 13:06
--- NOTE | 2019-02-11 13:15 | HP ---
Date/Time of Note Date/Time of Note DATE: 02/11/19 TIME: 13:06 Assessment/Plan VTE Prophylaxis Risk score (from Nsg)>0 risk: 3 SCD applied (from Ns): No SCD contraindicated: other Pharmacological prophylaxis: apixaban Lines/Catheters Urinary Cath still in place: No Assessment/Plan Hospital Course SUBJECTIVE: No acute overnight episodes. OBJECTIVE: Vital signs-see below PHYSICAL EXAM: Constitutional: Frail looking, elderly female, not in acute distress. Psych: nl mood/affect, no complaints Head: atraumatic, normocephalic Eyes: nl conjunctiva, nl sclera ENMT: mucosa pink and moist, nl external ears & nose Neck: non-tender, supple Respiratory: clear bilaterally, normal air movement Cardiovascular: . nl pulses, regular rate and rhythm Gastrointestinal: non-tender, soft, bowel sounds active in all 4 quadrants. Musculoskeletal/extremities: nl extremities to inspection, motor strength equal bilaterally, no focal deficit. Normal pulses,no cyanosis, no edema. Neurological: Alert oriented 3,nl speech, nl strength Skin: nl turgor ASSESSMENT/PLAN:88-year-old female w/ multiple comorbidities including CHF, PAF, anemia, CKD, diabetes, hypothyroidism, transferred from [facility] after she was treated for acute respiratory failure secondary to as piration pneumonia and heart failure for progressive debility. 1. Progressive debility -Continue rehab/PT 2. Status post respiratory failure secondary to aspiration pneumonia/CHF -Stable. Continue to monitor respiratory status. 3. Status post pneumonia -Stable. Approaching antibiotic course completion. 4. Chronic diastolic congestive heart failure. -Compensated. Continue current cardiac medications/beta-blockers 5. Paroxysmal atrial fibrillation. Stable Continue Eliquis, Betapace 6.CKD -Stable renal function. 7.DMII -Stable glycemic trends. Continue Tradjenta -Accuchecks/ISS 8. Anemia of CKD. -HH stable. 9. Hypothyroidism -On Synthroid 10. 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 -On allopurinol. DVT prophylaxis: [place] Patient is medically stable for physical therapy and acute rehabilitation unit. Approximately 60 m spent on this history and physical. Patient was seen in collaboration with . Result Diagram: 02/11/19 0706 02/11/19 0706 Results 24hrs Laboratory Tests Test 02/11/19 06:00 02/11/19 07:06 02/11/19 07:28 02/11/19 11:38 Urine Color YELLOW Urine Clarity CLEAR Urine pH 5.0 Urine Specific 1.015 [place] Urine Ketones NEGATIVE Urine Nitrite NEGATIVE Urine Bilirubin NEGATIVE Urine Urobilinogen 0.2 E.U./dL Urine Leukocyte NEGATIVE Esterase Urine Microscopic 2-5 RBC Urine Squamous FEW Epithelial Cells Urine Hemoglobin 1+ H Urine Glucose NEGATIVE Urine Total Protein NEGATIVE White Blood Count 5.6 Red Blood Count 3.01 L Hemoglobin 9.6 L Hematocrit 29.8 L Mean Corpuscular 99.0 Volume Mean Corpuscular 31.9 Hemoglobin Mean Corpuscular 32.2 Hemoglobin Concent Red Cell 14.7 H Distribution Width Platelet Count 287 Mean Platelet 10.6 H Volume Immature 1.600 H Granulocytes % Neutrophils % 72.0 Lymphocytes % 13.8 L Monocytes % 10.1 Eosinophils % 1.8 Basophils % 0.7 Nucleated Red Blood 0.0 Cells % Immature 0.090 H Granulocytes # Neutrophils # 4.0 Lymphocytes # 0.8 Monocytes # 0.6 Eosinophils # 0.1 Basophils # 0.0 Nucleated Red Blood 0.0 Cells # Sodium Level 144 Potassium Level 3.6 Chloride Level 111 H Carbon Dioxide 24 Level Anion Gap 9 Blood Urea Nitrogen 22 H Creatinine 1.28 H Est Glomerular Filtrat Rate mL/min Glucose Level 110 Calcium Level 8.7 Total Bilirubin 0.3 Direct Bilirubin 0.00 Indirect Bilirubin 0.3 Aspartate Amino 22 Transf (AST/SGOT) Alanine 21 Aminotransferase (A LT/SGPT) Alkaline 87 Phosphatase Total Protein 5.9 L Albumin 2.7 L Globulin 3.20 Albumin/Globulin 0.84 Ratio Bedside Glucose 107 133 HPI/ROS Admit Date/Time Admit Date/Time Feb 10, 2019 at 18:51 Hx of Present Illness This is a 88-year-old female with multiple comorbidities including congestive heart failure, CKD, type 2 diabetes, DVT, GI bleed, atrial fibrillation, status post pacemaker placed, who was admitted at [facility] with shortness of breath, cough and weakness, found to have hypoxemic respiratory f ailure secondary to aspiration pneumonia and CHF exacerbation. Hospital course was also noted for dysphagia for which patient had speech therapy evaluation and was placed on appropriate diet. 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 Patient's kidney function remained stable at baseline. He was then evaluated by physical therapist and found with debility requiring further rehabilitation and was accepted to acute rehabilitation unit on 02/11/2019. At my encounter with the patient, she is sitting up in a chair, not in any acute distress. Denies chest pain, palpitation, shortness of breath, nausea, vomiting, fevers, chills, abdominal pain, loss of consciousness, dizziness, diaphoresis or other constitutional symptoms. Labs showed hemoglobin 9.6, hematocrit 29.8, creatinine 1.28. Otherwise unremarkable. Stable vital signs. PMH/Family/Social Past Medical History Medications Current Medications Polyethylene Glycol (Miralax) 17 gm DAILY PO Last administered on 02/11/19 10:37; Admin Dose 17 GM; Start 02/11/19 at 09:00 Sotalol HCl (Betapace) 80 mg BID PO Last administered on 02/11/19 10:38; Admin Dose 80 MG; Start 02/11/19 at 09:00 Tiotropium [place] (Spiriva) 1 inh DAILY INH Last administered on 02/11/19 10:43; Admin Dose 1 INH; Start 02/11/19 at 09:00 Lansoprazole (Prevacid) 30 mg BID@0600,1800 PO Last administered on 02/11/19 06:15; Admin Dose 30 MG; Start 02/11/19 at 06:00 Linagliptin (Tradjenta) 5 mg DAILY PO Last administered on 02/11/19at 10:37; Admin Dose 5 MG; Start 02/11/19 at 09:00 Lubiprostone (Amitiza) 24 mcg WITH BREAKFAST DINNE PO ; Start 02/11/19 at 07:35 Meclizine HCl (Antivert) 25 mg TID PO ; Start 02/11/19 at 09:00 Megestrol Acetate (Megace Susp) 400 mg DAILY PO Last administered on 02/11/19at 10:37; Admin Dose 400 MG; Start 02/11/19 at 09:00 Metronidazole (Flagyl) 500 mg Q8 PO Last administered on 02/11/19at 06:15; Admin Dose 500 MG; Start 02/10/19 at 22:00; Stop 02/14/19 at 14:01 Miscellaneous Information 1 ea NOTE XX ; Start 02/10/19 at 22:30 Glucose (Glutose) 15 gm Q15M PRN PO DECREASED GLUCOSE; Start 02/10/19 at 22:30 Glucose (Glutose) 22.5 gm Q15M PRN PO DECREASED GLUCOSE; Start 02/10/19 at 22:30 Dextrose (D50w Syringe) 25 ml Q15M PRN IV DECREASED GLUCOSE; Start 02/10/19 at 22:30 Dextrose (D50w Syringe) 50 ml Q15M PRN IV DECREASED GLUCOSE; Start 02/10/19 at 22:30 Glucagon (Glucagen) 1 mg Q15M PRN IM DECREASED GLUCOSE; Start 02/10/19 at 22:30 Glucose (Glutose) 15 gm Q15M PRN BUCCAL DECREASED GLUCOSE; Start 02/10/19 at 22:30 Insulin Aspart (Novolog Insulin Pen) (Adult SC Insulin - Mild Algorithm)... AC MEALS AND BEDTIME SC ; Start 02/11/19 at 07:05 Diagnostic Test (Pha) (Accu-Chek) 1 ea 02 XX Last administered on 02/11/19at 02:46; Admin Dose 1 EA; Start 02/11/19 at 02:00 Levothyroxine Sodium (Synthroid) 75 mcg BEFORE BREAKFAST PO Last administered on 02/11/19at 06:15; Admin Dose 75 MCG; Start 02/11/19 at 07:00 Doxycycline Hyclate (Vibramycin) 100 mg BID PO Last administered on 02/11/19at 10:37; Admin Dose 100 MG; Start 02/11/19 at 09:00; Stop 02/13/19 at 20:59 Ferrous Sulfate (Ferrous Sulfate (Ec)) 325 mg BID@0600,1800 PO Last administered on 02/11/19at 06:15; Admin Dose 325 MG; Start 02/11/19 at 06:00; Stop 03/03/19 at 05:59 Furosemide (Lasix) 20 mg DAILY PO Last administered on 02/11/19at 10:39; Admin Dose 20 MG; Start 02/11/19 at 09:00 Gentamicin Sulfate (Gentamicin 0.3% Oph Drop) 1 drop Q4 RIGHT EYE Last administered on 02/11/19at 10:37; Admin Dose 1 DROP; Start 02/11/19 at 01:00 Acetaminophen (Tylenol Tab) 650 mg Q6H PRN PO MILD PAIN(1-3)OR ELEVATED TEMP; Start 02/10/19 at 23:00 Albuterol/ Ipratropium (Duoneb) 3 ml Q4H RESP THERAPY HHN Last administered on 02/11/19at 05:01; Admin Dose 3 ML; Start 02/11/19 at 01:00 Albuterol/ Ipratropium (Duoneb) 3 ml Q2H RESP THERAPY PRN HHN SHORTNESS OF B REATH; Start 02/10/19 at 23:00 Allopurinol (Zyloprim) 100 mg DAILY PO Last administered on 02/11/19at 10:38; Admin Dose 100 MG; Start 02/11/19 at 09:00 Apixaban (Eliquis) 2.5 mg BID PO Last administered on 02/11/19at 10:38; Admin Dose 2.5 MG; Start 02/11/19 at 09:00 Patient Own Medication 1 ea HS BOTH EYES ; Start 02/11/19 at 21:00; Status UNV Patient Own Medication 1 ea BID BOTH EYES ; Start 02/11/19 at 09:00; Status UNV Non-Formulary Medication 1 DROP BOTH EYES Q4H PRN BOTH EYES DRY EYES; Start 02/10/19 at 23:30 Coded Allergies: No Known Allergy (Unverified , 12/18/17) Past Surgical History Past Surgical Hx: other Family History Significant Family History: no pertinent family hx Social History Smoking Status: Never smoker Exam/Review of Systems Vital Signs Vitals Vital Signs Date Temp Pulse Resp B/P (MAP) Pulse Ox O2 O2 Flow FiO2 Time Delivery Rate 02/11/19 99.1 73 18 126/53 100 Room Air 07:00 (77) 02/11/19 2.0 05:01 Intake and Output 02/10/19 02/10/19 02/11/19 1515:00 23:00 07:00 IntakeIntake Total 750 ml BalanceBalance 750 ml ANDREA KHAN NP Feb 11, 2019 13:15
[2019-02-11 14:00] VITALS: BP 109/55; PULSE 64; RESP 18
[2019-02-11] MEDS ORDERED: BISACODYL 10 MG SUPP PR PRN (17:00)
[2019-02-11] MEDS ORDERED: MAGNESIUM HYDROXIDE 30ML CUP PO PRN (17:00)
[2019-02-11] MEDS: LACTULOSE 30ML CUP PO PRN (18:21)
[2019-02-11 19:51] VITALS: BP 103/50; PULSE 59; RESP 19
[2019-02-11] MEDS: LATANOPROST 0.005% 2.5 ML OPH BOTH EYES SCH (21:00)
[2019-02-11] MEDS: DOCUSATE SODIUM 10 MG/ML (10ML CUP) PO SCH (21:00)
[2019-02-11] MEDS: SENNA TAB PO SCH (21:00)
[2019-02-11] MEDS ORDERED: TRAVOPROST 0.004% BOTH EYES SCH (21:00)
[2019-02-12] MEDS: ALBUTEROL/IPRATROPIUM (NEB) 3 ML AMP HHN SCH ×6 (00:59→20:29)
[2019-02-12] MEDS: GENTAMICIN 0.3% 5 ML OPH RIGHT EYE SCH ×6 (01:00→21:06)
[2019-02-12] MEDS: ACCUCHECK AT 2AM (Patients on SS coverage) XX SCH (02:00)
[2019-02-12] MEDS: LEVOTHYROXINE 75 MCG TAB PO SCH (06:41)
[2019-02-12] MEDS: metroNIDAZOLE 500 MG TAB PO SCH ×3 (06:42→21:11)
[2019-02-12] MEDS: FERROUS SULFATE (EC) 325 MG TAB PO SCH ×2 (06:44→17:37)
[2019-02-12] MEDS: LANSOPRAZOLE 30 MG CAP PO SCH ×2 (06:49→17:37)
[2019-02-12 07:30] VITALS: BP 147/65; PULSE 67; RESP 20
[2019-02-12] MEDS: LUBIPROSTONE 24 MCG CAP PO SCH ×2 (08:25→17:37)
[2019-02-12] MEDS: LINAGLIPTIN 5 MG TABLET PO SCH (08:25)
[2019-02-12] MEDS: Insulin NOVOLOG SS MILD Algorithm (SS with meals and bedtime) SC SCH ×4 (08:26→21:00)
--- NOTE | 2019-02-12 08:26 | PN ---
Date/Time of Note Date/Time of Note DATE: 02/12/19 TIME: 08:25 Subjective AWAKE ALERT, - SOB GOOD PO Objective Vital Signs Date Temp Pulse Resp B/P (MAP) Pulse Ox O2 O2 Flow FiO2 Time Delivery Rate 02/12/19 63 20 99 Nasal 2.0 04:25 Cannula 02/11/19 97.8 103/50 19:51 (67) Intake and Output 02/11/19 02/11/19 02/12/19 1515:00 23:00 07:00 IntakeIntake Total 800 ml OutputOutput Total 600 ml 150 ml BalanceBalance 200 ml -150 ml Exam LUNGS CTA COR RRR GOOD MOTOR CLOF XT AND GAIT MOD A FWW Results/Medications Result Diagram: 02/11/1970502/11/19 07 Results 24 hrs Laboratory Tests Test 02/11/19 11:38 02/11/19 17:52 02/11/19 20:34 02/12/19 02:54 Bedside Glucose 133 192 202 124 Medications Current Medications Polyethylene Glycol (Miralax) 17 gm DAILY PO Last administered on 02/11/19at 10:37; Admin Dose 17 GM; Start 02/11/19 at 09:00 Sotalol HCl (Betapace) 80 mg BID PO Last administered on 02/11/19at 10:38; Admin Dose 80 MG; Start 02/11/19 at 09:00 Tiotropium [place] (Spiriva) 1 inh DAILY INH Last administered on 02/11/19at 10:43; Admin Dose 1 INH; Start 02/11/19 at 09:00 Lansoprazole (Prevacid) 30 mg BID@0600,1800 PO Last administered on 02/12/19at 06:49; Admin Dose 30 MG; Start 02/11/19 at 06:00 Linagliptin (Tradjenta) 5 mg DAILY PO Last administered on 02/11/19at 10:37; Admin Dose 5 MG; Start 02/11/19 at 09:00 Lubiprostone (Amitiza) 24 mcg WITH BREAKFAST DINNE PO ; Start 02/11/19 at 07:35 Meclizine HCl (Antivert) 25 mg TID PO Last administered on 02/11/19at 13:12; Admin Dose 25 MG; Start 02/11/19 at 09:00 Megestrol Acetate (Megace Susp) 400 mg DAILY PO Last administered on 02/11/19at 10:37; Admin Dose 400 MG; Start 02/11/19 at 09:00 Metronidazole (Flagyl) 500 mg Q8 PO Last administered on 02/12/19at 06:42; Admin Dose 500 MG; Start 02/10/19 at 22:00; Stop 02/14/19 at 14:01 Miscellaneous Information 1 ea NOTE XX ; Start 02/10/19 at 22:30 Glucose (Glutose) 15 gm Q15M PRN PO DECREASED GLUCOSE; Start 02/10/19 at 22:30 Glucose (Glutose) 22.5 gm Q15M PRN PO DECREASED GLUCOSE; Start 02/10/19 at 22: 30 Dextrose (D50w Syringe) 25 ml Q15M PRN IV DECREASED GLUCOSE; Start 02/10/19 at 22:30 Dextrose (D50w Syringe) 50 ml Q15M PRN IV DECREASED GLUCOSE; Start 02/10/19 at 22:30 Glucagon (Glucagen) 1 mg Q15M PRN IM DECREASED GLUCOSE; Start 02/10/19 at 22:30 Glucose (Glutose) 15 gm Q15M PRN BUCCAL DECREASED GLUCOSE; Start 02/10/19 at 22:30 Insulin Aspart (Novolog Insulin Pen) (Adult SC Insulin - Mild Algorithm)... AC MEALS AND BEDTIME SC Last administered on 02/11/19at 20:53; Admin Dose 1 UNIT; Start 02/11/19 at 07:05 Diagnostic Test (Pha) (Accu-Chek) 1 ea 02 XX Last administered on 02/12/19at 02:00; Admin Dose 1 EA; Start 02/11/19 at 02:00 Levothyroxine Sodium (Synthroid) 75 mcg BEFORE BREAKFAST PO Last administered on 02/12/19at 06:41; Admin Dose 75 MCG; Start 02/11/19 at 07:00 Doxycycline Hyclate (Vibramycin) 100 mg BID PO Last administered on 02/11/19at 10:37; Admin Dose 100 MG; Start 02/11/19 at 09:00; Stop 02/13/19 at 20:59 Ferrous Sulfate (Ferrous Sulfate (Ec)) 325 mg BID@0600,1800 PO Last administered on 02/12/19at 06:44; Admin Dose 325 MG; Start 02/11/19 at 06:00; Stop 03/03/19 at 05:59 Furosemide (Lasix) 20 mg DAILY PO Last administered on 02/11/19at 10:39; Admin Dose 20 MG; Start 02/11/19 at 09:00 Gentamicin Sulfate (Gentamicin 0.3% Oph Drop) 1 drop Q4 RIGHT EYE Last a dministered on 02/12/19at 06:45; Admin Dose 1 DROP; Start 02/11/19 at 01:00 Acetaminophen (Tylenol Tab) 650 mg Q6H PRN PO MILD PAIN(1-3)OR ELEVATED TEMP; Start 02/10/19 at 23:00 Albuterol/ Ipratropium (Duoneb) 3 ml Q4H RESP THERAPY HHN Last administered on 02/12/19at 04:25; Admin Dose 3 ML; Start 02/11/19 at 01:00 Albuterol/ Ipratropium (Duoneb) 3 ml Q2H RESP THERAPY PRN HHN SHORTNESS OF BREATH; Start 02/10/19 at 23:00 Allopurinol (Zyloprim) 100 mg DAILY PO Last administered on 02/11/19at 10:38; Admin Dose 100 MG; Start 02/11/19 at 09:00 Apixaban (Eliquis) 2.5 mg BID PO Last administered on 02/11/19at 10:38; Admin Dose 2.5 MG; Start 02/11/19 at 09:00 Non-Formulary Medication 1 DROP BOTH EYES Q4H PRN BOTH EYES DRY EYES; Start 02/10/19 at 23:30 Latanoprost (Xalatan) 1 drop HS BOTH EYES ; Start 02/11/19 at 21:00 Docusate Sodium (Colace Liquid Cup) 100 mg BID PO ; Start 02/11/19 at 21:00 Senna (Senokot) 1 tab HS PO ; Start 02/11/19 at 21:00 Bisacodyl (Dulcolax Supp) 10 mg DAILY PRN [place] CONSTIPATION; Start 02/11/19 at 17:00 Magnesium Hydroxide (Milk Of Mag) 30 ml BID PRN PO CONSTIPATION; Start 02/11/19 at 17:00 Lactulose (Enulose) 20 gm DAILY PRN PO CONSTIPATION Last administered on 02/11/19at 18:21; Admin Dose 20 GM; Start 02/11/19 at 17:00 Cyclosporine (Restasis) 1 drop BID BOTH EYES ; Start 02/12/19 at 09:00 Assessment/Plan Additional Assessment/Plan 1. PULMONARY DEBILITY Status post aspiration pneumonia.CONTINUE THERAPEUTIC IINTERVENTIONS 2. Dysphagia. 3. CHF. CARDIAC PRECAUTIONS 4. Acute on chronic kidney disease. 5. Diabetes mellitus type 2.MAINTAIN BS <150 6. History of DVT. 7. History of GI bleed. 8. Atrial fibrillation with history of pacemaker. 9. Urinary tract infection. 10. Impairments in self-care and mobility and mild cognitive impairments. LESTER FRIED MD Feb 12, 2019 08:26
[2019-02-12] MEDS: POLYETHYLENE GLYCOL 17 GM PACKET PO SCH (10:44)
[2019-02-12] MEDS: CYCLOSPORINE 0.05% OPH DROPERETTE BOTH EYES SCH ×2 (10:44→21:06)
[2019-02-12] MEDS: MEGESTROL (40 MG/ML) 10ML CUP PO SCH (10:45)
[2019-02-12] MEDS: SOTALOL 80 MG TAB PO SCH ×2 (10:45→21:07)
[2019-02-12] MEDS: DOCUSATE SODIUM 10 MG/ML (10ML CUP) PO SCH ×2 (10:45→21:12)
[2019-02-12] MEDS: TIOTROPIUM 18 MCG CAPSULE INHA DEV INH SCH (10:45)
[2019-02-12] MEDS: DOXYCYCLINE 100 MG TAB PO SCH ×2 (10:45→21:06)
[2019-02-12] MEDS: FUROSEMIDE 20 MG TAB PO SCH (10:46)
[2019-02-12] MEDS: APIXABAN 5 MG TABLET PO SCH ×2 (10:46→21:07)
[2019-02-12] MEDS: MECLIZINE 25 MG TAB PO SCH ×3 (10:46→21:06)
[2019-02-12] MEDS: ALLOPURINOL 100 MG TAB PO SCH (10:46)
--- NOTE | 2019-02-12 11:16 | PN ---
Date/Time of Note Date/Time of Note DATE: 02/12/19 TIME: 11:13 Assessment/Plan VTE Prophylaxis Risk score (from Ns)>0 risk: 4 SCD applied (from Ns): No SCD contraindicated: other Pharmacological prophylaxis: apixaban Lines/Catheters IV [facility]from [facility] [place] Urinary Cath still in place: No Assessment/Plan Hospital Course SUBJECTIVE: No acute overnight episodes. OBJECTIVE: Vital signs-see below PHYSICAL EXAM: Constitutional: Frail looking, elderly female, not in acute distress. Psych: nl mood/affect, no complaints Head: atraumatic, normocephalic Eyes: nl conjunctiva, nl sclera ENMT: mucosa pink and moist, nl external ears & nose Neck: non-tender, supple Respiratory: clear bilaterally, normal air movement Cardiovascular: . nl pulses, regular rate and rhythm Gastrointestinal: non-tender, soft, bowel sounds active in all 4 quadrants. Musculoskeletal/extremities: nl extremities to inspection, motor strength equal bilaterally, no focal deficit. Normal pulses,no cyanosis, no edema. Neurological: Alert oriented 3,nl speech, nl strength Skin: nl turgor ASSESSMENT/PLAN:88-year-old female w/ multiple comorbidities including CHF, PAF, anemia, CKD, diabetes, hypothyroidism, transferred from [facility] after she was treated for acute respiratory failure secondary to aspiration pneumonia and heart failure for progressive debility. 1. Progressive debility -Continue rehab/PT 2. Status post respiratory failure secondary to aspiration pneumonia/CHF -Stable. Continue to monitor respiratory status. 3. Status post pneumonia -Stable. Approaching antibiotic course completion. 4. Chronic diastolic congestive heart failure. -Compensated. Continue current cardiac medications/beta-blockers/lasix 5. Paroxysmal atrial fibrillation. -Stable -Continue Eliquis, Betapace 6.CKD -Stable renal function. 7.DMII -Stable glycemic trends. Continue Tradjenta -Accuchecks/ISS 8. Anemia of CKD. -HH stable. 9. Hypothyroidism -On Synthroid 10. 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 -On allopurinol. DVT prophylaxis: [place] Patient was seen in collaboration with . Result Diagram: 02/11/19 0706 02/11/19 0706 Results 24hrs Laboratory Tests Test 02/11/19 11:38 02/11/19 17:52 02/11/19 20:34 02/12/19 02:54 Bedside Glucose 133 192 202 124 Test 02/12/19 08:11 Bedside Glucose 148 Exam/Review of Systems Exam Vitals Vital Signs Date Temp Pulse Resp B/P (MAP) Pulse Ox O2 O2 Flow FiO2 Time Delivery Rate 02/12/19 97.8 67 20 147/65 99 Nasal 07:30 (92) Cannula 02/12/19 2.0 04:25 Intake and Output 02/11/19 02/11/19 02/12/19 1515:00 23:00 07:00 IntakeIntake Total 800 ml OutputOutput Total 600 ml 150 ml BalanceBalance 200 ml -150 ml Results Results 24hrs Laboratory Tests Test 02/11/19 11:38 02/11/19 17:52 02/11/19 20:34 02/12/19 02:54 Bedside Glucose 133 192 202 124 Test 02/12/19 08:11 Bedside Glucose 148 Medications Medication Current Medications Polyethylene Glycol (Miralax) 17 gm DAILY PO Last administered on 02/12/19 10:44; Admin Dose 17 GM; Start 02/11/19 at 09:00 Sotalol HCl (Betapace) 80 mg BID PO Last administered on 02/12/19 10:45; Admin Dose 80 MG; Start 02/11/19 at 09:00 Tiotropium [place] (Spiriva) 1 inh DAILY INH Last administered on 02/12/19 10:45; Admin Dose 1 INH; Start 02/11/19 at 09:00 Lansoprazole (Prevacid) 30 mg BID@0600,1800 PO Last administered on 02/12/19 06:49; Admin Dose 30 MG; Start 02/11/19 at 06:00 Linagliptin (Tradjenta) 5 mg DAILY PO Last administered on 02/12/19 08:25; Admin Dose 5 MG; Start 02/11/19 at 09:00 Lubiprostone (Amitiza) 24 mcg WITH BREAKFAST DINNE PO Last administered on 02/12/19 08:25; Admin Dose 24 MCG; Start 02/11/19 at 07:35 Meclizine HCl (Antivert) 25 mg TID PO Last administered on 02/12/19 10:46; Ad min Dose 25 MG; Start 02/11/19 at 09:00 Megestrol Acetate (Megace Susp) 400 mg DAILY PO Last administered on 02/12/19 10:45; Admin Dose 400 MG; Start 02/11/19 at 09:00 Metronidazole (Flagyl) 500 mg Q8 PO Last administered on 02/12/19at 06:42; Admin Dose 500 MG; Start 02/10/19 at 22:00; Stop 02/14/19 at 14:01 Miscellaneous Information 1 ea NOTE XX ; Start 02/10/19 at 22:30 Glucose (Glutose) 15 gm Q15M PRN PO DECREASED GLUCOSE; Start 02/10/19 at 22:30 Glucose (Glutose) 22.5 gm Q15M PRN PO DECREASED GLUCOSE; Start 02/10/19 at 22:30 Dextrose (D50w Syringe) 25 ml Q15M PRN IV DECREASED GLUCOSE; Start 02/10/19 at 22:30 Dextrose (D50w Syringe) 50 ml Q15M PRN IV DECREASED GLUCOSE; Start 02/10/19 at 22:30 Glucagon (Glucagen) 1 mg Q15M PRN IM DECREASED GLUCOSE; Start 02/10/19 at 22:30 Glucose (Glutose) 15 gm Q15M PRN BUCCAL DECREASED GLUCOSE; Start 02/10/19 at 22:30 Insulin Aspart (Novolog Insulin Pen) (Adult SC Insulin - Mild Algorithm)... AC MEALS AND BEDTIME SC Last administered on 02/12/19at 08:26; Admin Dose 1 UNIT; Start 02/11/19 at 07:05 Diagnostic Test (Pha) (Accu-Chek) 1 ea 02 XX Last administered on 02/12/19at 02:00; Admin Dose 1 EA; Start 02/11/19 at 02:00 Levothyroxine Sodium (Synthroid) 75 mcg BEFORE BREAKFAST PO Last administered on 02/12/19 06:41; Admin Dose 75 MCG; Start 02/11/19 at 07:00 Doxycycline Hyclate (Vibramycin) 100 mg BID PO Last administered on 02/12/19at 10:45; Admin Dose 100 MG; Start 02/11/19 at 09:00; Stop 02/13/19 at 20:59 Ferrous Sulfate (Ferrous Sulfate (Ec)) 325 mg BID@0600,1800 PO Last administered on 02/12/19at 06:44; Admin Dose 325 MG; Start 02/11/19 at 06:00; Stop 4/3/19 at 05:59 Furosemide (Lasix) 20 mg DAILY PO Last administered on 02/12/19 10:46; Admin Dose 20 MG; Start 02/11/19 at 09:00 Gentamicin Sulfate (Gentamicin 0.3% Oph Drop) 1 drop Q4 RIGHT EYE Last administered on 02/12/19 10:44; Admin Dose 1 DROP; Start 02/11/19 at 01:00 Acetaminophen (Tylenol Tab) 650 mg Q6H PRN PO MILD PAIN(1-3)OR ELEVATED TEMP; Start 02/10/19 at 23:00 Albuterol/ Ipratropium (Duoneb) 3 ml Q4H RESP THERAPY HHN Last administered on 02/12/19 04:25; Admin Dose 3 ML; Start 02/11/19 at 01:00 Albuterol/ Ipratropium (Duoneb) 3 ml Q2H RESP THERAPY PRN HHN SHORTNESS OF BREATH; Start 02/10/19 at 23:00 Allopurinol (Zyloprim) 100 mg DAILY PO Last administered on 02/12/19 10:46; Admin Dose 100 MG; Start 02/11/19 at 09:00 Apixaban (Eliquis) 2.5 mg BID PO Last administered on 02/12/19 10:46; Admin Dose 2.5 MG; Start 02/11/19 at 09:00 Non-Formulary Medication 1 DROP BOTH EYES Q4H PRN BOTH EYES DRY EYES; Start 02/10/19 at 23:30 Latanoprost (Xalatan) 1 drop HS BOTH EYES ; Start 02/11/19 at 21:00 Docusate Sodium (Colace Liquid Cup) 100 mg BID PO Last administered on 02/12/19 10:45; Admin Dose 100 MG; Start 02/11/19 at 21:00 Senna (Senokot) 1 tab HS PO ; Start 02/11/19 at 21:00 Bisacodyl (Dulcolax Supp) 10 mg DAILY PRN [place] CONSTIPATION; Start 02/11/19 at 17:00 Magnesium Hydroxide (Milk Of Mag) 30 ml BID PRN PO CONSTIPATION; Start 02/11/19 at 17:00 Lactulose (Enulose) 20 gm DAILY PRN PO CONSTIPATION Last administered on 3/14/1 9at 18:21; Admin Dose 20 GM; Start 02/11/19 at 17:00 Cyclosporine (Restasis) 1 drop BID BOTH EYES Last administered on 02/12/19at 10:44; Admin Dose 1 DROP; Start 02/12/19 at 09:00 ANDREA KHAN NP Feb 12, 2019 11:16
[2019-02-12 14:00] VITALS: BP 133/61; PULSE 66; RESP 20
--- NOTE | 2019-02-12 16:57 | CONS ---
Assessment/Plan Assessment/Plan Hospital Course (Demo Recall) IMP: 1.AF-Paced when last on tele. on eliquis 2.PPM-no signs of dysfunction at this time 3.HTN-labile 4.DM 5.sob-likley PNA with possible component of CHF-diastolic EF 60% by echo this admit. Now improved 6. Hypothyroid 7. PNA by chest CT 8. Renal failure-slight worsening Recc: -Now in rehab -serial ecg's -Continue sotalol as tolerated only and follow QTc on sotalol -Continue abx's and f/u cx data -Follow volume status clsoely with lasix 20 po daily -Hydralazine d/c'd? Follow BP and resume as necessary -Continue bronchodilators Consultation Date/Type/Reason Admit Date/Time Feb 10, 2019 at 18:51 Initial Consult Date 02/11/19 Type of Consult Cardiology Reason for Consultation HTN Requesting Provider: HERSON DAVIS MD Date/Time of Note DATE: 02/12/19 TIME: 16:54 Exam/Review of Systems Vital Signs Vitals Vital Signs Date Temp Pulse Resp B/P (MAP) Pulse Ox O2 O2 Flow FiO2 Time Delivery Rate 02/12/19 99 2.0 16:18 02/12/19 63 24 Nasal 16:18 Cannula 02/12/19 97.8 133/61 14:00 (85) Intake and Output 02/11/19 02/11/19 02/12/19 1515:00 23:00 07:00 IntakeIntake Total 800 ml OutputOutput Total 600 ml 150 ml BalanceBalance 200 ml -150 ml Exam Exam Review of Systems: CONSTITUTIONAL: No fevers, chills. PULMONARY: No sob CARDIOVASCULAR: No chest pain/palpitations GASTROINTESTINAL: No nausea/vomiting. GENITOURINARY: No hematuria/dysuria. MUSCULOSKELETAL: No myagias/arthalgias. PSYCHIATRIC: The patient denies depression. NEUROLOGIC: No weakness Constitutional: alert Psych: no complaints Head: normocephalic ENMT: mucosa pink and moist Neck: supple, jvd (9 cm water) Respiratory: diminished breath sounds (at bases/B) Cardiovascular: regular rate and rhythm Gastrointestinal: soft, non-tender Musculoskeletal: muscle weakness (generalized) Extremities: edema (trace/B) Neurological: other (No focal deficits) Labs Result Diagram: 02/11/1970502/11/19 07 Results 24hrs Laboratory Tests Test 02/11/19 17:52 02/11/19 20:34 02/12/19 02:54 02/12/19 08:11 Bedside Glucose 192 202 124 148 Test 02/12/19 11:43 Bedside Glucose 164 Medications Medications Current Medications Polyethylene Glycol (Miralax) 17 gm DAILY PO Last administered on 02/12/19 10:44; Admin Dose 17 GM; Start 02/11/19 at 09:00 Sotalol HCl (Betapace) 80 mg BID PO Last administered on 02/12/19 10:45; Admin Dose 80 MG; Start 02/11/19 at 09:00 Tiotropium [place] (Spiriva) 1 inh DAILY INH Last administered on 02/12/19 10:45; Admin Dose 1 INH; Start 02/11/19 at 09:00 Lansoprazole (Prevacid) 30 mg BID@0600,1800 PO Last administered on 02/12/19 06:49; Admin Dose 30 MG; Start 02/11/19 at 06:00 Linagliptin (Tradjenta) 5 mg DAILY PO Last administered on 02/12/19 08:25; Admin Dose 5 MG; Start 02/11/19 at 09:00 Lubiprostone (Amitiza) 24 mcg WITH BREAKFAST DINNE PO Last administered on 02/12/19 08:25; Admin Dose 24 MCG; Start 02/11/19 at 07:35 Meclizine HCl (Antivert) 25 mg TID PO Last administered on 02/12/19 12:50; Admin Dose 25 MG; Start 02/11/19 at 09:00 Megestrol Acetate (Megace Susp) 400 mg DAILY PO Last administered on 02/12/19 10:45; Admin Dose 400 MG; Start 02/11/19 at 09:00 Metronidazole (Flagyl) 500 mg Q8 PO Last administered on 02/12/19 12:50; Admin Dose 500 MG; Start 02/10/19 at 22:00; Stop 02/14/19 at 14:01 Miscellaneous Information 1 ea NOTE XX ; Start 02/10/19 at 22:30 Glucose (Glutose) 15 gm Q15M PRN PO DECREASED GLUCOSE; Start 02/10/19 at 22:30 Glucose (Glutose) 22.5 gm Q15M PRN PO DECREASED GLUCOSE; Start 02/10/19 at 22:30 Dextrose (D50w Syringe) 25 ml Q15M PRN IV DECREASED GLUCOSE; Start 02/10/19 at 22:30 Dextrose (D50w Syringe) 50 ml Q15M PRN IV DECREASED GLUCOSE; Start 02/10/19 at 22:30 Glucagon (Glucagen) 1 mg Q15M PRN IM DECREASED GLUCOSE; Start 02/10/19 at 22:30 Glucose (Glutose) 15 gm Q15M PRN BUCCAL DECREASED GLUCOSE; Start 02/10/19 at 22:30 Insulin Aspart (Novolog Insulin Pen) (Adult SC Insulin - Mild Algorithm)... AC MEALS AND BEDTIME SC Last administered on 02/12/19at 08:26; Admin Dose 1 UNIT; Start 02/11/19 at 07:05 Diagnostic Test (Pha) (Accu-Chek) 1 ea 02 XX Last administered on 02/12/19at 02:00; Admin Dose 1 EA; Start 02/11/19 at 02:00 Levothyroxine Sodium (Synthroid) 75 mcg BEFORE BREAKFAST PO Last administered on 02/12/19 06:41; Admin Dose 75 MCG; Start 02/11/19 at 07:00 Doxycycline Hyclate (Vibramycin) 100 mg BID PO Last administered on 02/12/19at 10:45; Admin Dose 100 MG; Start 02/11/19 at 09:00; Stop 02/13/19 at 20:59 Ferrous Sulfate (Ferrous Sulfate (Ec)) 325 mg BID@0600,1800 PO Last administered on 02/12/19 06:44; Admin Dose 325 MG; Start 02/11/19 at 06:00; Stop 03/03/19 at 05:59 Furosemide (Lasix) 20 mg DAILY PO Last administered on 02/12/19at 10:46; Admin Dose 20 MG; Start 02/11/19 at 09:00 Gentamicin Sulfate (Gentamicin 0.3% Oph Drop) 1 drop Q4 RIGHT EYE Last administered on 02/12/19at 12:50; Admin Dose 1 DROP; Start 02/11/19 at 01:00 Acetaminophen (Tylenol Tab) 650 mg Q6H PRN PO MILD PAIN(1-3)OR ELEVATED TEMP; Start 02/10/19 at 23:00 Albuterol/ Ipratropium (Duoneb) 3 ml Q4H RESP THERAPY HHN Last administered on 02/12/19 16:18; Admin Dose 3 ML; Start 02/11/19 at 01:00 Albuterol/ Ipratropium (Duoneb) 3 ml Q2H RESP THERAPY PRN HHN SHORTNESS OF BREATH; Start 02/10/19 at 23:00 Allopurinol (Zyloprim) 100 mg DAILY PO Last administered on 02/12/19 10:46; Admin Dose 100 MG; Start 02/11/19 at 09:00 Apixaban (Eliquis) 2.5 mg BID PO Last administered on 02/12/19 10:46; Admin Dose 2.5 MG; Start 02/11/19 at 09:00 Non-Formulary Medication 1 DROP BOTH EYES Q4H PRN BOTH EYES DRY EYES; Start 02/10/19 at 23:30 Latanoprost (Xalatan) 1 drop HS BOTH EYES ; Start 02/11/19 at 21:00 Docusate Sodium (Colace Liquid Cup) 100 mg BID PO Last administered on 02/12/19 10:45; Admin Dose 100 MG; Start 02/11/19 at 21:00 Senna (Senokot) 1 tab HS PO ; Start 02/11/19 at 21:00 Bisacodyl (Dulcolax Supp) 10 mg DAILY PRN [place] CONSTIPATION; Start 02/11/19 at 17:00 Magnesium Hydroxide (Milk Of Mag) 30 ml BID PRN PO CONSTIPATION; Start 02/11/19 at 17:00 Lactulose (Enulose) 20 gm DAILY PRN PO CONSTIPATION Last administered on 02/11/19at 18:21; Admin Dose 20 GM; Start 02/11/19 at 17:00 Cyclosporine (Restasis) 1 drop BID BOTH EYES Last administered on 02/12/19 10:44; Admin Dose 1 DROP; Start 02/12/19 at 09:00 SHAWANDA LUGO 15, 2019 16:57
[2019-02-12 20:00] VITALS: BP 124/61; PULSE 65; RESP 18
[2019-02-12] MEDS: SENNA TAB PO SCH (21:06)
[2019-02-12] MEDS: LATANOPROST 0.005% 2.5 ML OPH BOTH EYES SCH (21:26)
[2019-02-13] MEDS: GENTAMICIN 0.3% 5 ML OPH RIGHT EYE SCH ×6 (01:00→21:33)
[2019-02-13] MEDS: ALBUTEROL/IPRATROPIUM (NEB) 3 ML AMP HHN SCH ×6 (01:23→20:57)
[2019-02-13] MEDS: ACETAMINOPHEN 325 MG TAB PO PRN ×2 (01:29→21:30)
[2019-02-13] MEDS: ACCUCHECK AT 2AM (Patients on SS coverage) XX SCH (01:36)
[2019-02-13 02:00] VITALS: BP 120/60; PULSE 60; RESP 18
[2019-02-13] MEDS: LANSOPRAZOLE 30 MG CAP PO SCH ×2 (06:06→14:23)
[2019-02-13] MEDS: FERROUS SULFATE (EC) 325 MG TAB PO SCH ×2 (06:06→17:09)
[2019-02-13] MEDS: metroNIDAZOLE 500 MG TAB PO SCH ×3 (06:06→21:32)
[2019-02-13] MEDS: LEVOTHYROXINE 75 MCG TAB PO SCH (06:06)
[2019-02-13 07:00] VITALS: BP 169/72; PULSE 73; RESP 18
[2019-02-13] MEDS: Insulin NOVOLOG SS MILD Algorithm (SS with meals and bedtime) SC SCH ×4 (07:05→21:00)
--- NOTE | 2019-02-13 07:10 | PN ---
Date/Time of Note Date/Time of Note DATE: 02/13/19 TIME: 07:09 Subjective AWAKE ALEERT, - SOB Objective Vital Signs Date Temp Pulse Resp B/P (MAP) Pulse Ox O2 O2 Flow FiO2 Time Delivery Rate 02/13/19 63 20 98 Nasal 2.0 05:49 Cannula 02/13/19 97.8 120/60 02:00 (80) 02/12/19 21 20:30 Intake and Output 02/12/19 02/12/19 02/13/19 1515:00 23:00 07:00 IntakeIntake Total 150 ml 460 ml 550 ml BalanceBalance 150 ml 460 ml 550 ml Exam LUNGS DECREASED BASES COR RRR FAIR MOTOR CLOF XT AND GAIT MODA Results/Medications Result Diagram: 02/11/1970502/11/19 0706 Results 24 hrs Laboratory Tests Test 02/12/19 08:11 02/12/19 11:43 02/12/19 17:33 02/12/19 21:14 Bedside Glucose 148 164 136 149 Medications Current Medications Polyethylene Glycol (Miralax) 17 gm DAILY PO Last administered on 02/12/19 10:44; Admin Dose 17 GM; Start 02/11/19 at 09:00 Sotalol HCl (Betapace) 80 mg BID PO Last administered on 02/12/19 21:07; Admin Dose 80 MG; Start 02/11/19 at 09:00 Tiotropium [place] (Spiriva) 1 inh DAILY INH Last administered on 02/12/19 10:45; Admin Dose 1 INH; Start 02/11/19 at 09:00 Lansoprazole (Prevacid) 30 mg BID@0600,1800 PO Last administered on 02/13/19 06:06; Admin Dose 30 MG; Start 02/11/19 at 06:00 Linagliptin (Tradjenta) 5 mg DAILY PO Last administered on 02/12/19 08:25; Admin Dose 5 MG; Start 02/11/19 at 09:00 Lubiprostone (Amitiza) 24 mcg WITH BREAKFAST DINNE PO Last administered on 02/12/19 17:37; Admin Dose 24 MCG; Start 02/11/19 at 07:35 Meclizine HCl (Antivert) 25 mg TID PO Last administered on 02/12/19 21:06; Admin Dose 25 MG; Start 02/11/19 at 09:00 Megestrol Acetate (Megace Susp) 400 mg DAILY PO Last administered on 02/12/19at 10:45; Admin Dose 400 MG; Start 02/11/19 at 09:00 Metronidazole (Flagyl) 500 mg Q8 PO Last administered on 02/13/19at 06:06; Admin Dose 500 MG; Start 02/10/19 at 22:00; Stop 02/14/19 at 14:01 Miscellaneous Information 1 ea NOTE XX ; Start 02/10/19 at 22:30 Glucose (Glutose) 15 gm Q15M PRN PO DECREASED GLUCOSE; Start 02/10/19 at 22:30 Glucose (Glutose) 22.5 gm Q15M PRN PO DECREASED GLUCOSE; Start 02/10/19 at 22:30 Dextrose (D50w Syringe) 25 ml Q15M PRN IV DECREASED GLUCOSE; Start 02/10/19 at 22:30 Dextrose (D50w Syringe) 50 ml Q15M PRN IV DECREASED GLUCOSE; Start 02/10/19 at 22:30 Glucagon (Glucagen) 1 mg Q15M PRN IM DECREASED GLUCOSE; Start 02/10/19 at 22:30 Glucose (Glutose) 15 gm Q15M PRN BUCCAL DECREASED GLUCOSE; Start 02/10/19 at 22:30 Insulin Aspart (Novolog Insulin Pen) (Adult SC Insulin - Mild Algorithm)... AC MEALS AND BEDTIME SC Last administered on 02/12/19at 08:26; Admin Dose 1 UNIT; Start 02/11/19 at 07:05 Diagnostic Test (Pha) (Accu-Chek) 1 ea 02 XX Last administered on 02/12/19at 02:00; Admin Dose 1 EA; Start 02/11/19 at 02:00 Levothyroxine Sodium (Synthroid) 75 mcg BEFORE BREAKFAST PO Last administered on 02/13/19 06:06; Admin Dose 75 MCG; Start 02/11/19 at 07:00 Doxycycline Hyclate (Vibramycin) 100 mg BID PO Last administered on 02/12/19at 21:06; Admin Dose 100 MG; Start 02/11/19 at 09:00; Stop 02/13/19 at 20:59 Ferrous Sulfate (Ferrous Sulfate (Ec)) 325 mg BID@0600,1800 PO Last administered on 02/13/19at 06:06; Admin Dose 325 MG; Start 02/11/19 at 06:00; Stop 03/03/19 at 05:59 Furosemide (Lasix) 20 mg DAILY PO Last administered on 02/12/19 10:46; Admin Dose 20 MG; Start 02/11/19 at 09:00 Gentamicin Sulfate (Gentamicin 0.3% Oph Drop) 1 drop Q4 RIGHT EYE Last administered on 02/13/19 06:06; Admin Dose 1 DROP; Start 02/11/19 at 01:00 Acetaminophen (Tylenol Tab) 650 mg Q6H PRN PO MILD PAIN(1-3)OR ELEVATED TEMP Last administered on 02/13/19 01:29; Admin Dose 650 MG; Start 02/10/19 at 23:00 Albuterol/ Ipratropium (Duoneb) 3 ml Q4H RESP THERAPY HHN Last administered on 02/13/19 05:49; Admin Dose 3 ML; Start 02/11/19 at 01:00 Albuterol/ Ipratropium (Duoneb) 3 ml Q2H RESP THERAPY PRN HHN SHORTNESS OF BREATH; Start 02/10/19 at 23:00 Allopurinol (Zyloprim) 100 mg DAILY PO Last administered on 02/12/19 10:46; Admin Dose 100 MG; Start 02/11/19 at 09:00 Apixaban (Eliquis) 2.5 mg BID PO Last administered on 02/12/19 21:07; Admin Dose 2.5 MG; Start 02/11/19 at 09:00 Non-Formulary Medication 1 DROP BOTH EYES Q4H PRN BOTH EYES DRY EYES; Start 02/10/19 at 23:30 Latanoprost (Xalatan) 1 drop HS BOTH EYES Last administered on 02/12/19 21:26; Admin Dose 1 DROP; Start 02/11/19 at 21:00 Docusate Sodium (Colace Liquid Cup) 100 mg BID PO Last administered on 02/12/19 21:12; Admin Dose 100 MG; Start 02/11/19 at 21:00 Senna (Senokot) 1 tab HS PO Last administered on 02/12/19 21:06; Admin Dose 1 TAB; Start 02/11/19 at 21:00 Bisacodyl (Dulcolax Supp) 10 mg DAILY PRN [place] CONSTIPATION; Start 02/11/19 at 17:00 Magnesium Hydroxide (Milk Of Mag) 30 ml BID PRN PO CONSTIPATION; Start 02/11/19 at 17:00 Lactulose (Enulose) 20 gm DAILY PRN PO CONSTIPATION Last administered on at 18:21; Admin Dose 20 GM; Start 02/11/19 at 17:00 Cyclosporine (Restasis) 1 drop BID BOTH EYES Last administered on 02/12/19at 21:06; Admin Dose 1 DROP; Start 02/12/19 at 09:00 Assessment/Plan Additional Assessment/Plan 1. PULMONARY DEBILITY Status post aspiration pneumonia.CONTINUE THERAPEUTIC IINTERVENTIONS 2. Dysphagia.PUREED 3. CHF. CARDIAC PRECAUTIONS 4. Acute on chronic kidney disease. 5. Diabetes mellitus type 2.MAINTAIN BS <150 6. History of DVT. 7. History of GI bleed. 8. Atrial fibrillation with history of pacemaker. 9. Urinary tract infection. 10. Impairments in self-care and mobility and mild cognitive impairments. LESTER FRIED MD Feb 13, 2019 07:10
[2019-02-13] MEDS: LUBIPROSTONE 24 MCG CAP PO SCH ×2 (08:15→17:09)
[2019-02-13] MEDS: LACTULOSE 30ML CUP PO PRN (08:58)
[2019-02-13] MEDS: CYCLOSPORINE 0.05% OPH DROPERETTE BOTH EYES SCH ×2 (08:59→21:31)
[2019-02-13] MEDS: TIOTROPIUM 18 MCG CAPSULE INHA DEV INH SCH (08:59)
[2019-02-13] MEDS: LINAGLIPTIN 5 MG TABLET PO SCH (08:59)
[2019-02-13] MEDS: MEGESTROL (40 MG/ML) 10ML CUP PO SCH (08:59)
[2019-02-13] MEDS: DOXYCYCLINE 100 MG TAB PO SCH (09:00)
[2019-02-13] MEDS: APIXABAN 5 MG TABLET PO SCH ×2 (09:00→21:31)
[2019-02-13] MEDS: MECLIZINE 25 MG TAB PO SCH ×3 (09:00→21:31)
[2019-02-13] MEDS: POLYETHYLENE GLYCOL 17 GM PACKET PO SCH (09:00)
[2019-02-13] MEDS: ALLOPURINOL 100 MG TAB PO SCH (09:00)
[2019-02-13] MEDS: FUROSEMIDE 20 MG TAB PO SCH (09:00)
[2019-02-13] MEDS: DOCUSATE SODIUM 10 MG/ML (10ML CUP) PO SCH ×2 (09:00→21:33)
[2019-02-13] MEDS: SOTALOL 80 MG TAB PO SCH ×2 (09:01→21:32)
--- NOTE | 2019-02-13 12:44 | PN ---
Date/Time of Note Date/Time of Note DATE: 02/13/19 TIME: 12:43 Assessment/Plan VTE Prophylaxis Risk score (from Ns)>0 risk: 6 SCD applied (from Ns): No SCD contraindicated: other Pharmacological prophylaxis: apixaban Lines/Catheters IV [facility] Type [facility]from [facility] [place] Urinary Cath still in place: No Assessment/Plan Hospital Course SUBJECTIVE: No acute overnight episodes. OBJECTIVE: Vital signs-see below PHYSICAL EXAM: Constitutional: Frail looking, elderly female, not in acute distress. Psych: nl mood/affect, no complaints Head: atraumatic, normocephalic Eyes: nl conjunctiva, nl sclera ENMT: mucosa pink and moist, nl external ears & nose Neck: non-tender, supple Respiratory: clear bilaterally, normal air movement Cardiovascular: . nl pulses, regular rate and rhythm Gastrointestinal: non-tender, soft, bowel sounds active in all 4 quadrants. Musculoskeletal/extremities: nl extremities to inspection, motor strength equal bilaterally, no focal deficit. Normal pulses,no cyanosis, no edema. Neurological: Alert oriented 3,nl speech, nl strength Skin: nl turgor ASSESSMENT/PLAN:88-year-old female w/ multiple comorbidities including CHF, PAF, anemia, CKD, diabetes, hypothyroidism, transferred from [facility] after she was treated for acute respiratory failure secondary to aspiration pneumonia and heart failure for progressive debility. 1. Progressive debility -Continue rehab/PT 2. Status post respiratory failure secondary to aspiration pneumonia/CHF -Stable. Continue to monitor respiratory status. 3. Status post pneumonia -Stable. Approaching antibiotic course completion. 4. Chronic diastolic congestive heart failure. -Compensated. Continue current cardiac medications/beta-blockers/lasix 5. Paroxysmal atrial fibrillation. -Stable -Continue Eliquis, Betapace 6.CKD -Stable renal function. 7.DMII -Stable glycemic trends. Continue Tradjenta -Accuchecks/ISS 8. Anemia of CKD. -HH stable. 9. Hypothyroidism -On Synthroid 10. 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 -On allopurinol. 11. UTI. Urine culture noted. -We will treat with oral Cipro times 7 days. DVT prophylaxis: Santos Patient was seen in collaboration with . Result Diagram: 02/11/19 0706 02/11/19 0706 Results 24hrs Laboratory Tests Test 02/12/19 17:33 02/12/19 21:14 02/13/19 08:14 Bedside Glucose 136 149 131 Exam/Review of Systems Exam Vitals Vital Signs Date Temp Pulse Resp B/P (MAP) Pulse Ox O2 O2 Flow FiO2 Time Delivery Rate 02/13/19 66 20 97 Nasal 2.0 28 09:12 Cannula 02/13/19 98.5 169/72 07:00 (104) Intake and Output 02/12/19 02/12/19 02/13/19 1414:59 22:59 06:59 IntakeIntake Total 150 ml 460 ml 550 ml BalanceBalance 150 ml 460 ml 550 ml Results Results 24hrs Laboratory Tests Test 02/12/19 17:33 02/12/19 21:14 02/13/19 08:14 Bedside Glucose 136 149 131 Medications Medication Current Medications Polyethylene Glycol (Miralax) 17 gm DAILY PO Last administered on 02/12/19 10:44; Admin Dose 17 GM; Start 02/11/19 at 09:00 Sotalol HCl (Betapace) 80 mg BID PO Last administered on 02/13/19 09:01; Admin Dose 80 MG; Start 02/11/19 at 09:00 Tiotropium [place] (Spiriva) 1 inh DAILY INH Last administered on 02/13/19 08:59; Admin Dose 1 INH; Start 02/11/19 at 09:00 Lansoprazole (Prevacid) 30 mg BID@0600,1800 PO Last administered on 02/13/19 06:06; Admin Dose 30 MG; Start 02/11/19 at 06:00 Linagliptin (Tradjenta) 5 mg DAILY PO Last administered on 02/13/19 08:59; Admin Dose 5 MG; Start 02/11/19 at 09:00 Lubiprostone (Amitiza) 24 mcg WITH BREAKFAST DINNE PO Last administered on 02/13/19 08:15; Admin Dose 24 MCG; Start 02/11/19 at 07:35 Meclizine HCl (Antivert) 25 mg TID PO Last administered on 02/13/19 09:00; Admin Dose 25 MG; Start 02/11/19 at 09:00 Megestrol Acetate (Megace Susp) 400 mg DAILY PO Last administered on 02/13/19 08:59; Admin Dose 400 MG; Start 02/11/19 at 09:00 Metronidazole (Flagyl) 500 mg Q8 PO Last administered on 02/13/19at 06:06; Admin Dose 500 MG; Start 02/10/19 at 22:00; Stop 02/14/19 at 14:01 Miscellaneous Information 1 ea NOTE XX ; Start 02/10/19 at 22:30 Glucose (Glutose) 15 gm Q15M PRN PO DECREASED GLUCOSE; Start 02/10/19 at 22:30 Glucose (Glutose) 22.5 gm Q15M PRN PO DECREASED GLUCOSE; Start 02/10/19 at 22:30 Dextrose (D50w Syringe) 25 ml Q15M PRN IV DECREASED GLUCOSE; Start 02/10/19 at 22:30 Dextrose (D50w Syringe) 50 ml Q15M PRN IV DECREASED GLUCOSE; Start 02/10/19 at 22:30 Glucagon (Glucagen) 1 mg Q15M PRN IM DECREASED GLUCOSE; Start 02/10/19 at 22:30 Glucose (Glutose) 15 gm Q15M PRN BUCCAL DECREASED GLUCOSE; Start 02/10/19 at 22:30 Insulin Aspart (Novolog Insulin Pen) (Adult SC Insulin - Mild Algorithm)... AC MEALS AND BEDTIME SC Last administered on 02/12/19at 08:26; Admin Dose 1 UNIT; Start 02/11/19 at 07:05 Diagnostic Test (Pha) (Accu-Chek) 1 ea 02 XX Last administered on 02/12/19at 02:00; Admin Dose 1 EA; Start 02/11/19 at 02:00 Levothyroxine Sodium (Synthroid) 75 mcg BEFORE BREAKFAST PO Last administered on 02/13/19at 06:06; Admin Dose 75 MCG; Start 02/11/19 at 07:00 Doxycycline Hyclate (Vibramycin) 100 mg BID PO Last administered on 02/13/19at 09:00; Admin Dose 100 MG; Start 02/11/19 at 09:00; Stop 02/13/19 at 20:59 Ferrous Sulfate (Ferrous Sulfate (Ec)) 325 mg BID@0600,1800 PO Last administered on 02/13/19at 06:06; Admin Dose 325 MG; Start 02/11/19 at 06:00; Stop 03/03/19 at 05:59 Furosemide (Lasix) 20 mg DAILY PO Last administered on 02/13/19 09:00; Admin Dose 20 MG; Start 02/11/19 at 09:00 Gentamicin Sulfate (Gentamicin 0.3% Oph Drop) 1 drop Q4 RIGHT EYE Last administered on 02/13/19 08:59; Admin Dose 1 DROP; Start 02/11/19 at 01:00 Acetaminophen (Tylenol Tab) 650 mg Q6H PRN PO MILD PAIN(1-3)OR ELEVATED TEMP Last administered on 02/13/19 01:29; Admin Dose 650 MG; Start 02/10/19 at 23:00 Albuterol/ Ipratropium (Duoneb) 3 ml Q4H RESP THERAPY HHN Last administered on 02/13/19 09:00; Admin Dose 3 ML; Start 02/11/19 at 01:00 Albuterol/ Ipratropium (Duoneb) 3 ml Q2H RESP THERAPY PRN HHN SHORTNESS OF BREATH; Start 02/10/19 at 23:00 Allopurinol (Zyloprim) 100 mg DAILY PO Last administered on 02/13/19 09:00; Admin Dose 100 MG; Start 02/11/19 at 09:00 Apixaban (Eliquis) 2.5 mg BID PO Last administered on 02/13/19 09:00; Admin Dose 2.5 MG; Start 02/11/19 at 09:00 Non-Formulary Medication 1 DROP BOTH EYES Q4H PRN BOTH EYES DRY EYES; Start 02/10/19 at 23:30 Latanoprost (Xalatan) 1 drop HS BOTH EYES Last administered on 02/12/19 21:26; Admin Dose 1 DROP; Start 02/11/19 at 21:00 Docusate Sodium (Colace Liquid Cup) 100 mg BID PO Last administered on 02/12/19 21:12; Admin Dose 100 MG; Start 02/11/19 at 21:00 Senna (Senokot) 1 tab HS PO Last administered on 02/12/19 21:06; Admin Dose 1 TAB; Start 02/11/19 at 21:00 Bisacodyl (Dulcolax Supp) 10 mg DAILY PRN [place] CONSTIPATION; Start 02/11/19 at 17:00 Magnesium Hydroxide (Milk Of Mag) 30 ml BID PRN PO CONSTIPATION; Start 02/11/19 at 17:00 Lactulose (Enulose) 20 gm DAILY PRN PO CONSTIPATION Last administered on 02/13/19at 08:58; Admin Dose 20 GM; Start 02/11/19 at 17:00 Cyclosporine (Restasis) 1 drop BID BOTH EYES Last administered on 02/13/19at 08:59; Admin Dose 1 DROP; Start 02/12/19 at 09:00 ANDREA KHAN NP Feb 13, 2019 12:44
[2019-02-13 14:00] VITALS: BP 95/54; PULSE 62; RESP 22
[2019-02-13] MEDS ORDERED: CALCIUM CARBONATE 500 MG CHEW TAB PO PRN (15:00)
--- NOTE | 2019-02-13 15:05 | CONS ---
Consult Date/Type/Reason Admit Date/Time Feb 10, 2019 at 18:51 Initial Consult Date Requesting Provider: HERSON DAVIS MD Date/Time of Note DATE: 02/13/19 TIME: 15:03 Subjective NO acute events - pt stable - BP high - add Rx as needed ROS: No fever, no chills, no nausea, no vomiting, no diarrhea/constipation - weak No recent weight changes No chest pain, no PND, no orthopnea No dizziness, blurred vision No thirst, no heat or cold intolerance Objective Vitals Vital Signs Date Temp Pulse Resp B/P (MAP) Pulse Ox O2 O2 Flow FiO2 Time Delivery Rate 02/13/19 66 20 97 Nasal 2.0 28 09:12 Cannula 02/13/19 98.5 169/72 07:00 (104) Intake and Output 02/12/19 02/12/19 02/13/19 1515:00 23:00 07:00 IntakeIntake Total 150 ml 460 ml 550 ml BalanceBalance 150 ml 460 ml 550 ml Exam General: WN/WD/NAD, AOx 2-3 [place]an[place] HEENT: Unicetric/atraumatic/EOMI (does not follow commands) NECK: JVD elevated, no thyromegaly Lymph: no lymphadenopathy HEART: regular with no S3, II/ systolic murmur at apex, pacer LUNGS: Coarse sounds ABD: soft, NT, ND, +BS : Intact Neuro: non focal SKIN: chronic changes EXT: trace edema Results/Medications Result Diagram: 02/11/19 0706 02/11/19 0706 Results 24 hrs Laboratory Tests Test 02/12/19 17:33 02/12/19 21:14 02/13/19 08:14 02/13/19 12:42 Bedside Glucose 136 149 131 169 Home Meds Active Scripts Metronidazole* (Flagyl*) 500 Mg Tablet, 500 MG PO Q8 for 4 Days, TAB Prov:CHARMAINE MENCHACA MD 02/10/19 Doxycycline Hyclate* (Doxycycline Hyclate*) 100 Mg Tablet.dr, 100 MG PO BID for pneumonia+ bronchitis for 4 Days, TAB Prov:CHARMAINE MENCHACA MD 02/10/19 Meclizine Hcl* (Meclizine Hcl*) 25 Mg Tablet, 25 MG PO TID for vertigo, #30 TAB Prov:PORFIRIO KHANNA DO 12/19/17 Polyethylene Glycol* (Miralax*) 17 Gm Powd.pack, 17 GM PO DAILY for 10 Days Prov:HERSON DAVIS MD 11/27/16 Lubiprostone* (Amitiza*) 24 Mcg Capsule, 24 MCG PO WITH BREAKFAST DINNE for 28 Days, CAP Prov:HERSON ADVIS MD 11/27/16 Ipratropium-Albuterol (Ipratropium-Albuterol) 0.5-3 Mg/3 Ml Ampul.neb, 3 ML HHN Q2H RESP THERAPY PRN for SHORTNESS OF BREATH for 28 Days Prov:HERSON DAVIS MD 11/27/16 Furosemide* (Lasix*) 20 Mg Tablet, 20 MG PO QAM, #90 TAB Prov:KEVIN ZHOU MD 11/23/16 Omeprazole* (Omeprazole*) 20 Mg Capsule.dr, 40 MG PO BID, #60 CAP Prov:RICARDO ARREGUIN MD 11/13/16 Reported Medications Apixaban* (Eliquis*) 2.5 Mg Tablet, 2.5 MG PO BID, TAB 02/01/19 Travoprost* (Travatan Z*) 2.5 Ml Drops, 1 DROP BOTH EYES HS, #1 BOTTLE 02/01/19 Gentamicin Sulfate* (Gentamicin Sulfate* Ophth) 0.3% - 5 Ml Drops, 1 DROP LEFT EYE Q4, EA 02/01/19 Cyclosporine (Restasis Multidose) 5.5 Ml Drops, 1 DROP OP BID, BOTTLE 02/01/19 Polyethylene Glycol* (Miralax*) 17 Gm Powd.pack, 17 GM PO DAILY, #30 PACKET 11/21/16 Potassium Chloride* (Potassium Chloride*) 8 Meq Capsule.er, 8 MEQ PO every other day, CAP 11/21/16 Docusate Sodium* (Colace*) 250 Mg Capsule, 250 MG PO DAILY, #30 CAP 11/21/16 Ferrous Sulfate* (Ferrous Sulfate*) 325 Mg Tabec, 325 MG PO BID, TAB 11/09/16 Levothyroxine Sodium* (Levothyroxine Sodium*) 75 Mcg Tablet, 75 MCG PO BEFORE BREAKFAST, #30 TAB 09/14/16 Sotalol Hcl* (Sotalol Hcl*) 80 Mg Tablet, 80 MG PO BID, TAB 09/14/16 Sitagliptin Phos/Metformin HCl (Janumet 50-500 mg Tablet) 1 Each Tablet, 1 EACH PO DAILY AM, TAB 09/14/16 Discontinued Reported Medications Peg 400/Hypromellose/Glycerin (EYE DROP TEARS) 15 Ml Drops, 1 DROP OP Q4 PRN for DRY EYES, BOTTLE 02/01/19 Warfarin Sodium* (Coumadin*) 3 Mg Tablet, 3 MG PO DAILY, TAB 09/14/16 Discontinued Scripts Neomycin/Polymyxin/Hydrocort* (Cortisporin* Otic) 10 Ml Susp, 4 DROP RIGHT EAR QID for 7 Days, EA Prov:PORFIRIO KHANNA DO 12/19/17 Levofloxacin* (Levaquin*) 500 Mg Tablet, 500 MG PO DAILY for 7 Days, TAB Prov:PORFIRIO KHANNA DO 12/19/17 Hydrocodone-Homatropine* (Hydrocodone-Homatropine*) 5MG-1.5MG/5 Ml Syrup, 5 ML PO PRN PRN for COUGH for 14 Days Prov:HERSON DAVIS MD 11/27/16 Medications Current Medications Polyethylene Glycol (Miralax) 17 gm DAILY PO Last administered on 02/12/19at 10:44; Admin Dose 17 GM; Start 02/11/19 at 09:00 Sotalol HCl (Betapace) 80 mg BID PO Last administered on 02/13/19at 09:01; Admin Dose 80 MG; Start 02/11/19 at 09:00 Tiotropium [place] (Spiriva) 1 inh DAILY INH Last administered on 02/13/19at 08:59; Admin Dose 1 INH; Start 02/11/19 at 09:00 Lansoprazole (Prevacid) 30 mg BID@0600,1800 PO Last administered on 02/13/19 14:23; Admin Dose 30 MG; Start 02/11/19 at 06:00 Linagliptin (Tradjenta) 5 mg DAILY PO Last administered on 02/13/19 08:59; Admin Dose 5 MG; Start 02/11/19 at 09:00 Lubiprostone (Amitiza) 24 mcg WITH BREAKFAST DINNE PO Last administered on 02/13/19at 08:15; Admin Dose 24 MCG; Start 02/11/19 at 07:35 Meclizine HCl (Antivert) 25 mg TID PO Last administered on 02/13/19at 12:45; Admin Dose 25 MG; Start 02/11/19 at 09:00 Megestrol Acetate (Megace Susp) 400 mg DAILY PO Last administered on 02/13/19 08:59; Admin Dose 400 MG; Start 02/11/19 at 09:00 Metronidazole (Flagyl) 500 mg Q8 PO Last administered on 02/13/19 14:23; Admin Dose 500 MG; Start 02/10/19 at 22:00; Stop 02/14/19 at 14:01 Miscellaneous Information 1 ea NOTE XX ; Start 02/10/19 at 22:30 Glucose (Glutose) 15 gm Q15M PRN PO DECREASED GLUCOSE; Start 02/10/19 at 22:30 Glucose (Glutose) 22.5 gm Q15M PRN PO DECREASED GLUCOSE; Start 02/10/19 at 22:30 Dextrose (D50w Syringe) 25 ml Q15M PRN IV DECREASED GLUCOSE; Start 02/10/19 at 22:30 Dextrose (D50w Syringe) 50 ml Q15M PRN IV DECREASED GLUCOSE; Start 02/10/19 at 22:30 Glucagon (Glucagen) 1 mg Q15M PRN IM DECREASED GLUCOSE; Start 02/10/19 at 22:30 Glucose (Glutose) 15 gm Q15M PRN BUCCAL DECREASED GLUCOSE; Start 02/10/19 at 22:30 Insulin Aspart (Novolog Insulin Pen) (Adult SC Insulin - Mild Algorithm)... AC MEALS AND BEDTIME SC Last administered on 02/13/19at 12:44; Admin Dose 1 UNIT; Start 02/11/19 at 07:05 Diagnostic Test (Pha) (Accu-Chek) 1 ea 02 XX Last administered on 02/12/19at 02:00; Admin Dose 1 EA; Start 02/11/19 at 02:00 Levothyroxine Sodium (Synthroid) 75 mcg BEFORE BREAKFAST PO Last administered on 02/13/19at 06:06; Admin Dose 75 MCG; Start 02/11/19 at 07:00 Doxycycline Hyclate (Vibramycin) 100 mg BID PO Last administered on 02/13/19at 09:00; Admin Dose 100 MG; Start 02/11/19 at 09:00; Stop 02/13/19 at 20:59 Ferrous Sulfate (Ferrous Sulfate (Ec)) 325 mg BID@0600,1800 PO Last administered on 02/13/19 06:06; Admin Dose 325 MG; Start 02/11/19 at 06:00; Stop 03/03/19 at 05:59 Furosemide (Lasix) 20 mg DAILY PO Last administered on 02/13/19 09:00; Admin Dose 20 MG; Start 02/11/19 at 09:00 Gentamicin Sulfate (Gentamicin 0.3% Oph Drop) 1 drop Q4 RIGHT EYE Last administered on 02/13/19 12:45; Admin Dose 1 DROP; Start 02/11/19 at 01:00 Acetaminophen (Tylenol Tab) 650 mg Q6H PRN PO MILD PAIN(1-3)OR ELEVATED TEMP Last administered on 02/13/19 01:29; Admin Dose 650 MG; Start 02/10/19 at 23:00 Albuterol/ Ipratropium (Duoneb) 3 ml Q4H RESP THERAPY HHN Last administered on 02/13/19 09:00; Admin Dose 3 ML; Start 02/11/19 at 01:00 Albuterol/ Ipratropium (Duoneb) 3 ml Q2H RESP THERAPY PRN HHN SHORTNESS OF BREATH; Start 02/10/19 at 23:00 Allopurinol (Zyloprim) 100 mg DAILY PO Last administered on 02/13/19 09:00; Admin Dose 100 MG; Start 02/11/19 at 09:00 Apixaban (Eliquis) 2.5 mg BID PO Last administered on 02/13/19 09:00; Admin Dose 2.5 MG; Start 02/11/19 at 09:00 Non-Formulary Medication 1 DROP BOTH EYES Q4H PRN BOTH EYES DRY EYES; Start 02/10/19 at 23:30 Latanoprost (Xalatan) 1 drop HS BOTH EYES Last administered on 02/12/19 21:26; Admin Dose 1 DROP; Start 02/11/19 at 21:00 Docusate Sodium (Colace Liquid Cup) 100 mg BID PO Last administered on 02/12/19 21:12; Admin Dose 100 MG; Start 02/11/19 at 21:00 Senna (Senokot) 1 tab HS PO Last administered on 02/12/19 21:06; Admin Dose 1 TAB; Start 02/11/19 at 21:00 Bisacodyl (Dulcolax Supp) 10 mg DAILY PRN [place] CONSTIPATION; Start 02/11/19 at 17:00 Magnesium Hydroxide (Milk Of Mag) 30 ml BID PRN PO CONSTIPATION; Start 02/11/19 at 17:00 Lactulose (Enulose) 20 gm DAILY PRN PO CONSTIPATION Last administered on 02/13/19at 08:58; Admin Dose 20 GM; Start 02/11/19 at 17:00 Cyclosporine (Restasis) 1 drop BID BOTH EYES Last administered on 02/13/19at 08:59; Admin Dose 1 DROP; Start 02/12/19 at 09:00 Ciprofloxacin (Cipro) 500 mg BID@,18 PO ; Start 02/13/19 at 18:00; Stop 02/20/19 at 17:59 Calcium Carbonate (Tums) 500 mg Q4 PRN PO hyperacidity; Start 02/13/19 at 15:00 Assessment/Plan Hospital Course (Demo Recall) 1.AF-Paced when last on tele. on eliquis - rate controlled 2.PPM-no signs of dysfunction at this time - checked in the office recently 3.HTN-labile - add rx now 4.DM - on meds, keep euglycemic 5.Sob-likely PNA with possible component of CHF-diastolic EF 60% by echo this admit. On antibx as needed 6. Hypothyroid 7. PNA by chest CT - co n;r Rx 8. Renal failure-C r 1. 2 now - avid nephrotoxic meds CARLOS EDUARDO AVILES MD Feb 13, 2019 15:05
[2019-02-13] MEDS: CIPROFLOXACIN 500 MG TAB PO SCH (17:09)
[2019-02-13 20:37] VITALS: BP 132/63; PULSE 65; RESP 18
[2019-02-13] MEDS: LATANOPROST 0.005% 2.5 ML OPH BOTH EYES SCH (21:00)
[2019-02-13] MEDS: ALPRAZOLAM 0.25 MG TAB PO PRN (21:31)
[2019-02-13] MEDS: SENNA TAB PO SCH (21:34)
[2019-02-14] MEDS: GENTAMICIN 0.3% 5 ML OPH RIGHT EYE SCH ×6 (01:00→21:01)
[2019-02-14] MEDS: ALBUTEROL/IPRATROPIUM (NEB) 3 ML AMP HHN SCH ×6 (01:26→20:00)
[2019-02-14 02:00] VITALS: BP 127/60; PULSE 70; RESP 18
[2019-02-14] MEDS: ACCUCHECK AT 2AM (Patients on SS coverage) XX SCH (02:00)
[2019-02-14] MEDS: LEVOTHYROXINE 75 MCG TAB PO SCH (06:19)
[2019-02-14] MEDS: LANSOPRAZOLE 30 MG CAP PO SCH ×2 (06:19→18:03)
[2019-02-14] MEDS: CIPROFLOXACIN 500 MG TAB PO SCH ×2 (06:19→18:00)
[2019-02-14] MEDS: metroNIDAZOLE 500 MG TAB PO SCH ×2 (06:19→12:57)
[2019-02-14] MEDS: FERROUS SULFATE (EC) 325 MG TAB PO SCH ×2 (06:22→18:03)
[2019-02-14 07:00] VITALS: BP 106/55; PULSE 62; RESP 18
[2019-02-14] MEDS: LUBIPROSTONE 24 MCG CAP PO SCH ×2 (07:35→18:03)
[2019-02-14] MEDS: Insulin NOVOLOG SS MILD Algorithm (SS with meals and bedtime) SC SCH ×4 (08:00→21:00)
[2019-02-14] MEDS: LINAGLIPTIN 5 MG TABLET PO SCH (09:03)
[2019-02-14] MEDS: TIOTROPIUM 18 MCG CAPSULE INHA DEV INH SCH (09:03)
[2019-02-14] MEDS: ALLOPURINOL 100 MG TAB PO SCH (09:04)
[2019-02-14] MEDS: APIXABAN 5 MG TABLET PO SCH ×2 (09:04→20:58)
[2019-02-14] MEDS: MECLIZINE 25 MG TAB PO SCH ×3 (09:04→20:57)
[2019-02-14] MEDS: POLYETHYLENE GLYCOL 17 GM PACKET PO SCH (09:04)
[2019-02-14] MEDS: CYCLOSPORINE 0.05% OPH DROPERETTE BOTH EYES SCH ×2 (09:04→21:00)
[2019-02-14] MEDS: MEGESTROL (40 MG/ML) 10ML CUP PO SCH (09:07)
[2019-02-14] MEDS: DOCUSATE SODIUM 10 MG/ML (10ML CUP) PO SCH ×2 (09:07→21:00)
[2019-02-14] MEDS: SOTALOL 80 MG TAB PO SCH ×2 (09:10→20:59)
[2019-02-14] MEDS: FUROSEMIDE 20 MG TAB PO SCH (09:11)
--- NOTE | 2019-02-14 09:47 | CONS ---
Consult Date/Type/Reason Admit Date/Time Feb 10, 2019 at 18:51 Initial Consult Date Requesting Provider: HERSON DAVIS MD Date/Time of Note DATE: 02/14/19 TIME: 09:44 Subjective NO acute events - pt feels better overall, no Cp - says she can not swallow the pills - will follow with PMD. ROS: No fever, no chills, no nausea, no vomiting, no diarrhea/constipation No recent weight changes - mid SOB , Feels weak No chest pain, no PND, no orthopnea No dizziness, blurred vision No thirst, no heat or cold intolerance Objective Vitals Vital Signs Date Temp Pulse Resp B/P (MAP) Pulse Ox O2 O2 Flow FiO2 Time Delivery Rate 02/14/19 61 18 100 Nasal 2.0 08:16 Cannula 02/14/19 97.8 127/60 02:00 (82) 02/13/19 28 09:12 Intake and Output 02/13/19 02/13/19 02/14/19 1515:00 23:00 07:00 IntakeIntake Total 600 ml 920 ml BalanceBalance 600 ml 920 ml Exam General: WN/WD/NAD, AOx 2-3 [place] HEENT: Unicetric/atraumatic/EOMI (follow commands) NECK: JVD elevated, no thyromegaly Lymph: no lymphadenopathy HEART: regular with no S3, II/ systolic murmur at apex, pacer LUNGS: Coarse sounds ABD: soft, NT, ND, +BS : Intact Neuro: non focal SKIN: chronic changes EXT: trace edema Results/Medications Result Diagram: 02/11/19 0706 02/11/19 0706 Results 24 hrs Laboratory Tests Test 02/13/19 12:42 02/13/19 17:53 02/13/19 21:29 02/14/19 07:48 Bedside Glucose 169 133 126 101 Home Meds Active Scripts Metronidazole* (Flagyl*) 500 Mg Tablet, 500 MG PO Q8 for 4 Days, TAB Prov:CHARMAINE MENCHACA MD 02/10/19 Doxycycline Hyclate* (Doxycycline Hyclate*) 100 Mg Tablet.dr, 100 MG PO BID for pneumonia+ bronchitis for 4 Days, TAB Prov:CHARMAINE MENCHACA MD 02/10/19 Meclizine Hcl* (Meclizine Hcl*) 25 Mg Tablet, 25 MG PO TID for vertigo, #30 TAB Prov:NAGIPORFIRIO OSEI ErichGavino EPPERSON 12/19/17 Polyethylene Glycol* (Miralax*) 17 Gm Powd.pack, 17 GM PO DAILY for 10 Days Prov:HERSON DAVIS MD 11/27/16 Lubiprostone* (Amitiza*) 24 Mcg Capsule, 24 MCG PO WITH BREAKFAST DINNE for 28 Days, CAP Prov:HERSON DAVIS MD 11/27/16 Ipratropium-Albuterol (Ipratropium-Albuterol) 0.5-3 Mg/3 Ml Ampul.neb, 3 ML HHN Q2H RESP THERAPY PRN for SHORTNESS OF BREATH for 28 Days Prov:HERSON DAVIS MD 11/27/16 Furosemide* (Lasix*) 20 Mg Tablet, 20 MG PO QAM, #90 TAB Prov:KEVIN ZHOU MD 11/23/16 Omeprazole* (Omeprazole*) 20 Mg Capsule.dr, 40 MG PO BID, #60 CAP Prov:RICARDO ARREGUIN MD 11/13/16 Reported Medications Apixaban* (Eliquis*) 2.5 Mg Tablet, 2.5 MG PO BID, TAB 02/01/19 Travoprost* (Travatan Z*) 2.5 Ml Drops, 1 DROP BOTH EYES HS, #1 BOTTLE 02/01/19 Gentamicin Sulfate* (Gentamicin Sulfate* Ophth) 0.3% - 5 Ml Drops, 1 DROP LEFT EYE Q4, EA 02/01/19 Cyclosporine (Restasis Multidose) 5.5 Ml Drops, 1 DROP OP BID, BOTTLE 02/01/19 Polyethylene Glycol* (Miralax*) 17 Gm Powd.pack, 17 GM PO DAILY, #30 PACKET 11/21/16 Potassium Chloride* (Potassium Chloride*) 8 Meq Capsule.er, 8 MEQ PO every other day, CAP 11/21/16 Docusate Sodium* (Colace*) 250 Mg Capsule, 250 MG PO DAILY, #30 CAP 11/21/16 Ferrous Sulfate* (Ferrous Sulfate*) 325 Mg Tabec, 325 MG PO BID, TAB 11/09/16 Levothyroxine Sodium* (Levothyroxine Sodium*) 75 Mcg Tablet, 75 MCG PO BEFORE BREAKFAST, #30 TAB 10/15/16 Sotalol Hcl* (Sotalol Hcl*) 80 Mg Tablet, 80 MG PO BID, TAB 09/14/16 Sitagliptin Phos/Metformin HCl (Janumet 50-500 mg Tablet) 1 Each Tablet, 1 EACH PO DAILY AM, TAB 09/14/16 Discontinued Reported Medications Peg 400/Hypromellose/Glycerin (EYE DROP TEARS) 15 Ml Drops, 1 DROP OP Q4 PRN for DRY EYES, BOTTLE 02/01/19 Warfarin Sodium* (Coumadin*) 3 Mg Tablet, 3 MG PO DAILY, TAB 09/14/16 Discontinued Scripts Neomycin/Polymyxin/Hydrocort* (Cortisporin* Otic) 10 Ml Susp, 4 DROP RIGHT EAR QID for 7 Days, EA Prov:PORFIRIO KHANNA DO 12/19/17 Levofloxacin* (Levaquin*) 500 Mg Tablet, 500 MG PO DAILY for 7 Days, TAB Prov:PORFIRIO KHANNA DO 12/19/17 Hydrocodone-Homatropine* (Hydrocodone-Homatropine*) 5MG-1.5MG/5 Ml Syrup, 5 ML PO PRN PRN for COUGH for 14 Days Prov:HERSON DAVIS MD 11/27/16 Medications Current Medications Polyethylene Glycol (Miralax) 17 gm DAILY PO Last administered on 02/14/19at 09:04; Admin Dose 17 GM; Start 02/11/19 at 09:00 Sotalol HCl (Betapace) 80 mg BID PO Last administered on 02/14/19at 09:10; Admin Dose 80 MG; Start 02/11/19 at 09:00 Tiotropium [place] (Spiriva) 1 inh DAILY INH Last administered on 02/14/19at 09:03; Admin Dose 1 INH; Start 02/11/19 at 09:00 Lansoprazole (Prevacid) 30 mg BID@0600,1800 PO Last administered on 02/14/19 06:19; Admin Dose 30 MG; Start 02/11/19 at 06:00 Linagliptin (Tradjenta) 5 mg DAILY PO Last administered on 02/14/19 09:03; Admin Dose 5 MG; Start 02/11/19 at 09:00 Lubiprostone (Amitiza) 24 mcg WITH BREAKFAST DINNE PO Last administered on 02/13/19at 17:09; Admin Dose 24 MCG; Start 02/11/19 at 07:35 Meclizine HCl (Antivert) 25 mg TID PO Last administered on 02/14/19at 09:04; Admin Dose 25 MG; Start 02/11/19 at 09:00 Megestrol Acetate (Megace Susp) 400 mg DAILY PO Last administered on 02/14/19at 09:07; Admin Dose 400 MG; Start 02/11/19 at 09:00 Metronidazole (Flagyl) 500 mg Q8 PO Last administered on 02/14/19at 06:19; Admin Dose 500 MG; Start 02/10/19 at 22:00; Stop 02/14/19 at 14:01 Miscellaneous Information 1 ea NOTE XX ; Start 02/10/19 at 22:30 Glucose (Glutose) 15 gm Q15M PRN PO DECREASED GLUCOSE; Start 02/10/19 at 22:30 Glucose (Glutose) 22.5 gm Q15M PRN PO DECREASED GLUCOSE; Start 02/10/19 at 22:30 Dextrose (D50w Syringe) 25 ml Q15M PRN IV DECREASED GLUCOSE; Start 02/10/19 at 22:30 Dextrose (D50w Syringe) 50 ml Q15M PRN IV DECREASED GLUCOSE; Start 02/10/19 at 22:30 Glucagon (Glucagen) 1 mg Q15M PRN IM DECREASED GLUCOSE; Start 02/10/19 at 22:30 Glucose (Glutose) 15 gm Q15M PRN BUCCAL DECREASED GLUCOSE; Start 02/10/19 at 22:30 Insulin Aspart (Novolog Insulin Pen) (Adult SC Insulin - Mild Algorithm)... AC MEALS AND BEDTIME SC Last administered on 02/13/19at 12:44; Admin Dose 1 UNIT; Start 02/11/19 at 07:05 Diagnostic Test (Pha) (Accu-Chek) 1 ea 02 XX Last administered on 02/12/19at 02:00; Admin Dose 1 EA; Start 02/11/19 at 02:00 Levothyroxine Sodium (Synthroid) 75 mcg BEFORE BREAKFAST PO Last administered on 02/14/19at 06:19; Admin Dose 75 MCG; Start 02/11/19 at 07:00 Ferrous Sulfate (Ferrous Sulfate (Ec)) 325 mg BID@0600,1800 PO Last administered on 02/14/19at 06:22; Admin Dose 325 MG; Start 02/11/19 at 06:00; Stop 03/03/19 at 05:59 Furosemide (Lasix) 20 mg DAILY PO Last administered on 02/14/19 09:11; Admin Dose 20 MG; Start 02/11/19 at 09:00 Gentamicin Sulfate (Gentamicin 0.3% Oph Drop) 1 drop Q4 RIGHT EYE Last admini stered on 02/14/19 09:03; Admin Dose 1 DROP; Start 02/11/19 at 01:00 Acetaminophen (Tylenol Tab) 650 mg Q6H PRN PO MILD PAIN(1-3)OR ELEVATED TEMP Last administered on 02/13/19 21:30; Admin Dose 650 MG; Start 02/10/19 at 23:00 Albuterol/ Ipratropium (Duoneb) 3 ml Q4H RESP THERAPY HHN Last administered on 02/14/19 08:16; Admin Dose 3 ML; Start 02/11/19 at 01:00 Albuterol/ Ipratropium (Duoneb) 3 ml Q2H RESP THERAPY PRN HHN SHORTNESS OF BREATH; Start 02/10/19 at 23:00 Allopurinol (Zyloprim) 100 mg DAILY PO Last administered on 02/14/19 09:04; Admin Dose 100 MG; Start 02/11/19 at 09:00 Apixaban (Eliquis) 2.5 mg BID PO Last administered on 02/14/19 09:04; Admin Dose 2.5 MG; Start 02/11/19 at 09:00 Non-Formulary Medication 1 DROP BOTH EYES Q4H PRN BOTH EYES DRY EYES; Start 02/10/19 at 23:30 Latanoprost (Xalatan) 1 drop HS BOTH EYES Last administered on 02/12/19 21:26; Admin Dose 1 DROP; Start 02/11/19 at 21:00 Docusate Sodium (Colace Liquid Cup) 100 mg BID PO Last administered on 02/14/19 09:07; Admin Dose 100 MG; Start 02/11/19 at 21:00 Senna (Senokot) 1 tab HS PO Last administered on 02/13/19 21:34; Admin Dose 1 TAB; Start 02/11/19 at 21:00 Bisacodyl (Dulcolax Supp) 10 mg DAILY PRN [place] CONSTIPATION; Start 02/11/19 at 17:00 Magnesium Hydroxide (Milk Of Mag) 30 ml BID PRN PO CONSTIPATION; Start 02/11/19 at 17:00 Lactulose (Enulose) 20 gm DAILY PRN PO CONSTIPATION Last administered on 02/13/19at 08:58; Admin Dose 20 GM; Start 02/11/19 at 17:00 Cyclosporine (Restasis) 1 drop BID BOTH EYES Last administered on 02/14/19at 09:04; Admin Dose 1 DROP; Start 02/12/19 at 09:00 Ciprofloxacin (Cipro) 500 mg BID@,18 PO Last administered on 02/14/19at 06:19; Admin Dose 500 MG; Start 02/13/19 at 18:00; Stop 02/20/19 at 17:59 Calcium Carbonate (Tums) 500 mg Q4 PRN PO hyperacidity Last administered on 02/13/19 21:31; Admin Dose 500 MG; Start 02/13/19 at 15:00 Hydralazine HCl (Apresoline) 25 mg TID PO Last administered on 02/14/19at 09:10; Admin Dose 25 MG; Start 02/13/19 at 15:00 Alprazolam (Xanax) 0.25 mg HS PRN PO SLEEP Last administered on 02/13/19 21:31; Admin Dose 0.25 MG; Start 02/13/19 at 17:00 Assessment/Plan Hospital Course (Demo Recall) 1.AF-Paced when last on tele. on eliquis - rate controlled - off tele, will follow. 2.PPM-no signs of dysfunction at this time - checked in the office recently - site looks well. 3.HTN-labile - add rx now - treated. 4.DM - on meds, keep euglycemic 5.Sob-likely PNA with possible component of CHF-diastolic EF 60% by echo this admit. On antibx as needed - on meds. 6. Hypothyroid 7. PNA by chest CT - con't Rx - better now. 8. Renal failure- avid nephrotoxic meds CARLOS EDUARDO AVILES MD Feb 14, 2019 09:47
--- NOTE | 2019-02-14 11:27 | PN ---
Date/Time of Note Date/Time of Note DATE: 02/14/19 TIME: 11:27 Assessment/Plan VTE Prophylaxis Risk score (from Ns)>0 risk: 6 SCD applied (from Ns): No SCD contraindicated: other Pharmacological prophylaxis: apixaban Lines/Catheters IV C[facility]ter Type (from [facility] Saline Lock Urinary Cath still in place: No Assessment/Plan Hospital Course SUBJECTIVE: No acute overnight episodes. OBJECTIVE: Vital signs-see below PHYSICAL EXAM: Constitutional: Frail looking, elderly female, not in acute distress. Psych: nl mood/affect, no complaints Head: atraumatic, normocephalic Eyes: nl conjunctiva, nl sclera ENMT: mucosa pink and moist, nl external ears & nose Neck: non-tender, supple Respiratory: clear bilaterally, normal air movement Cardiovascular: . nl pulses, regular rate and rhythm Gastrointestinal: non-tender, soft, bowel sounds active in all 4 quadrants. Musculoskeletal/extremities: nl extremities to inspection, motor strength equal bilaterally, no focal deficit. Normal pulses,no cyanosis, no edema. Neurological: Alert oriented 3,nl speech, nl strength Skin: nl turgor ASSESSMENT/PLAN:88-year-old female w/ multiple comorbidities including CHF, PAF, anemia, CKD, diabetes, hypothyroidism, transferred from [facility] after she was treated for acute respiratory failure secondary to aspiration pneumonia and heart failure for progressive debility. 1. Progressive debility -Continue rehab/PT 2. Status post respiratory failure secondary to aspiration pneumonia/CHF -Stable. Continue to monitor respiratory status. 3. Status post pneumonia -Stable. Approaching antibiotic course completion. 4. Chronic diastolic congestive heart failure. -Compensated. Continue current cardiac medications/beta-blockers/lasix 5. Paroxysmal atrial fibrillation. -Stable -Continue Eliquis, Betapace 6.CKD -Stable renal function. 7.DMII -Stable glycemic trends. Continue Tradjenta -Accuchecks/ISS 8. Anemia of CKD. -HH stable. 9. Hypothyroidism -On Synthroid 10. 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 -On allopurinol. 11. UTI. Urine culture noted. -on Ciprox7 days. DVT prophylaxis: [place] Patient was seen in collaboration with . Result Diagram: 02/11/19 0706 02/11/19 0706 Results 24hrs Laboratory Tests Test 02/13/19 12:42 02/13/19 17:53 02/13/19 21:29 02/14/19 07:48 Bedside Glucose 169 133 126 101 Exam/Review of Systems Exam Vitals Vital Signs Date Temp Pulse Resp B/P (MAP) Pulse Ox O2 O2 Flow FiO2 Time Delivery Rate 02/14/19 61 18 100 Nasal 2.0 08:16 Cannula 02/14/19 98.0 106/55 07:00 (72) 02/13/19 28 09:12 Intake and Output 02/13/19 02/13/19 02/14/19 1515:00 23:00 07:00 IntakeIntake Total 600 ml 920 ml BalanceBalance 600 ml 920 ml Results Results 24hrs Laboratory Tests Test 02/13/19 12:42 02/13/19 17:53 02/13/19 21:29 02/14/19 07:48 Bedside Glucose 169 133 126 101 Medications Medication Current Medications Polyethylene Glycol (Miralax) 17 gm DAILY PO Last administered on 02/14/19 09:04; Admin Dose 17 GM; Start 02/11/19 at 09:00 Sotalol HCl (Betapace) 80 mg BID PO Last administered on 02/14/19at 09:10; Admin Dose 80 MG; Start 02/11/19 at 09:00 Tiotropium [place] (Spiriva) 1 inh DAILY INH Last administered on 02/14/19at 09:03; Admin Dose 1 INH; Start 02/11/19 at 09:00 Lansoprazole (Prevacid) 30 mg BID@0600,1800 PO Last administered on 02/14/19at 06:19; Admin Dose 30 MG; Start 02/11/19 at 06:00 Linagliptin (Tradjenta) 5 mg DAILY PO Last administered on 02/14/19 09:03; Admin Dose 5 MG; Start 02/11/19 at 09:00 Lubiprostone (Amitiza) 24 mcg WITH BREAKFAST DINNE PO Last administered on 02/13/19at 17:09; Admin Dose 24 MCG; Start 02/11/19 at 07:35 Meclizine HCl (Antivert) 25 mg TID PO Last administered on 02/14/19at 09:04; Admin Dose 25 MG; Start 02/11/19 at 09:00 Megestrol Acetate (Megace Susp) 400 mg DAILY PO Last administered on 02/14/19at 09:07; Admin Dose 400 MG; Start 02/11/19 at 09:00 Metronidazole (Flagyl) 500 mg Q8 PO Last administered on 02/14/19at 06:19; Admin Dose 500 MG; Start 02/10/19 at 22:00; Stop 02/14/19 at 14:01 Miscellaneous Information 1 ea NOTE XX ; Start 02/10/19 at 22:30 Glucose (Glutose) 15 gm Q15M PRN PO DECREASED GLUCOSE; Start 02/10/19 at 22:30 Glucose (Glutose) 22.5 gm Q15M PRN PO DECREASED GLUCOSE; Start 02/10/19 at 22:30 Dextrose (D50w Syringe) 25 ml Q15M PRN IV DECREASED GLUCOSE; Start 02/10/19 at 22:30 Dextrose (D50w Syringe) 50 ml Q15M PRN IV DECREASED GLUCOSE; Start 02/10/19 at 22:30 Glucagon (Glucagen) 1 mg Q15M PRN IM DECREASED GLUCOSE; Start 02/10/19 at 22:30 Glucose (Glutose) 15 gm Q15M PRN BUCCAL DECREASED GLUCOSE; Start 02/10/19 at 22:30 Insulin Aspart (Novolog Insulin Pen) (Adult SC Insulin - Mild Algorithm)... AC MEALS AND BEDTIME SC Last administered on 02/13/19at 12:44; Admin Dose 1 UNIT; Start 02/11/19 at 07:05 Diagnostic Test (Pha) (Accu-Chek) 1 ea 02 XX Last administered on 02/12/19at 02:00; Admin Dose 1 EA; Start 02/11/19 at 02:00 Levothyroxine Sodium (Synthroid) 75 mcg BEFORE BREAKFAST PO Last administered on 02/14/19at 06:19; Admin Dose 75 MCG; Start 02/11/19 at 07:00 Ferrous Sulfate (Ferrous Sulfate (Ec)) 325 mg BID@0600,1800 PO Last administered on 02/14/19at 06:22; Admin Dose 325 MG; Start 02/11/19 at 06:00; Stop 03/03/19 at 05:59 Furosemide (Lasix) 20 mg DAILY PO Last administered on 02/14/19at 09:11; Admin Dose 20 MG; Start 02/11/19 at 09:00 Gentamicin Sulfate (Gentamicin 0.3% Oph Drop) 1 drop Q4 RIGHT EYE Last administered on 02/14/19 09:03; Admin Dose 1 DROP; Start 02/11/19 at 01:00 Acetaminophen (Tylenol Tab) 650 mg Q6H PRN PO MILD PAIN(1-3)OR ELEVATED TEMP Last administered on 02/13/19 21:30; Admin Dose 650 MG; Start 02/10/19 at 23:00 Albuterol/ Ipratropium (Duoneb) 3 ml Q4H RESP THERAPY HHN Last administered on 02/14/19 08:16; Admin Dose 3 ML; Start 02/11/19 at 01:00 Albuterol/ Ipratropium (Duoneb) 3 ml Q2H RESP THERAPY PRN HHN SHORTNESS OF BREATH; Start 02/10/19 at 23:00 Allopurinol (Zyloprim) 100 mg DAILY PO Last administered on 02/14/19 09:04; Admin Dose 100 MG; Start 02/11/19 at 09:00 Apixaban (Eliquis) 2.5 mg BID PO Last administered on 02/14/19 09:04; Admin Dose 2.5 MG; Start 02/11/19 at 09:00 Non-Formulary Medication 1 DROP BOTH EYES Q4H PRN BOTH EYES DRY EYES; Start 02/10/19 at 23:30 Latanoprost (Xalatan) 1 drop HS BOTH EYES Last administered on 02/12/19 21:26; Admin Dose 1 DROP; Start 02/11/19 at 21:00 Docusate Sodium (Colace Liquid Cup) 100 mg BID PO Last administered on 02/14/19 09:07; Admin Dose 100 MG; Start 02/11/19 at 21:00 Senna (Senokot) 1 tab HS PO Last administered on 02/13/19 21:34; Admin Dose 1 TAB; Start 02/11/19 at 21:00 Bisacodyl (Dulcolax Supp) 10 mg DAILY PRN [place] CONSTIPATION; Start 02/11/19 at 17:00 Magnesium Hydroxide (Milk Of Mag) 30 ml BID PRN PO CONSTIPATION; Start 02/11/19 at 17:00 Lactulose (Enulose) 20 gm DAILY PRN PO CONSTIPATION Last administered on 02/13/19 08:58; Admin Dose 20 GM; Start 02/11/19 at 17:00 Cyclosporine (Restasis) 1 drop BID BOTH EYES Last administered on 02/14/19 09:04; Admin Dose 1 DROP; Start 02/12/19 at 09:00 Ciprofloxacin (Cipro) 500 mg BID@06,18 PO Last administered on 02/14/19 06:19; Admin Dose 500 MG; Start 02/13/19 at 18:00; Stop 02/20/19 at 17:59 Calcium Carbonate (Tums) 500 mg Q4 PRN PO hyperacidity Last administered on 02/13/19 21:31; Admin Dose 500 MG; Start 02/13/19 at 15:00 Hydralazine HCl (Apresoline) 25 mg TID PO Last administered on 02/14/19 09:10; Admin Dose 25 MG; Start 02/13/19 at 15:00 Alprazolam (Xanax) 0.25 mg HS PRN PO SLEEP Last administered on 02/13/19 21:31; Admin Dose 0.25 MG; Start 02/13/19 at 17:00 ANDREA KHAN NP Feb 14, 2019 11:27
[2019-02-14 14:00] VITALS: BP 107/51; PULSE 78; RESP 16
[2019-02-14 20:00] VITALS: BP 116/58; PULSE 64; RESP 18
[2019-02-14] MEDS: SENNA TAB PO SCH (20:57)
[2019-02-14] MEDS: LATANOPROST 0.005% 2.5 ML OPH BOTH EYES SCH (21:00)
[2019-02-15] MEDS: GENTAMICIN 0.3% 5 ML OPH RIGHT EYE SCH ×6 (01:00→21:00)
[2019-02-15] MEDS: ALBUTEROL/IPRATROPIUM (NEB) 3 ML AMP HHN SCH ×6 (01:07→20:21)
[2019-02-15 02:00] VITALS: BP 110/56; PULSE 60; RESP 18
[2019-02-15] MEDS: ACCUCHECK AT 2AM (Patients on SS coverage) XX SCH (02:00)
[2019-02-15] MEDS: LANSOPRAZOLE 30 MG CAP PO SCH ×2 (06:51→17:43)
[2019-02-15] MEDS: CIPROFLOXACIN 500 MG TAB PO SCH ×2 (06:51→17:43)
[2019-02-15] MEDS: LEVOTHYROXINE 75 MCG TAB PO SCH (06:51)
[2019-02-15] MEDS: FERROUS SULFATE (EC) 325 MG TAB PO SCH ×2 (06:51→17:43)
[2019-02-15] MEDS: Insulin NOVOLOG SS MILD Algorithm (SS with meals and bedtime) SC SCH ×4 (07:05→21:00)
[2019-02-15 07:30] VITALS: BP 129/59; PULSE 60; RESP 20
[2019-02-15] MEDS: LUBIPROSTONE 24 MCG CAP PO SCH ×2 (08:13→17:45)
[2019-02-15] MEDS: LINAGLIPTIN 5 MG TABLET PO SCH (08:13)
[2019-02-15] MEDS: POLYETHYLENE GLYCOL 17 GM PACKET PO SCH (09:42)
[2019-02-15] MEDS: MEGESTROL (40 MG/ML) 10ML CUP PO SCH (09:43)
[2019-02-15] MEDS: CYCLOSPORINE 0.05% OPH DROPERETTE BOTH EYES SCH ×2 (09:43→21:20)
[2019-02-15] MEDS: DOCUSATE SODIUM 10 MG/ML (10ML CUP) PO SCH ×2 (09:43→21:00)
[2019-02-15] MEDS: TIOTROPIUM 18 MCG CAPSULE INHA DEV INH SCH (09:43)
[2019-02-15] MEDS: SOTALOL 80 MG TAB PO SCH ×2 (09:44→21:00)
[2019-02-15] MEDS: APIXABAN 5 MG TABLET PO SCH ×2 (09:44→21:20)
[2019-02-15] MEDS: ALLOPURINOL 100 MG TAB PO SCH (09:44)
[2019-02-15] MEDS: MECLIZINE 25 MG TAB PO SCH ×3 (09:44→21:00)
[2019-02-15] MEDS: FUROSEMIDE 20 MG TAB PO SCH (09:45)
--- NOTE | 2019-02-15 11:34 | PN ---
Date/Time of Note Date/Time of Note DATE: 02/15/19 TIME: 11:30 Assessment/Plan VTE Prophylaxis Risk score (from Ns)>0 risk: 6 SCD applied (from Ns): No SCD contraindicated: other Pharmacological prophylaxis: apixaban Lines/Catheters [facility] [place] Urinary Cath still in place: No Assessment/Plan Hospital Course SUBJECTIVE: No acute overnight episodes. OBJECTIVE: Vital signs-see below PHYSICAL EXAM: Constitutional: Frail looking, elderly female, not in acute distress. Psych: nl mood/affect, no complaints Head: atraumatic, normocephalic Eyes: nl conjunctiva, nl sclera ENMT: mucosa pink and moist, nl external ears & nose Neck: non-tender, supple Respiratory: clear bilaterally, normal air movement Cardiovascular: . nl pulses, regular rate and rhythm Gastrointestinal: non-tender, soft, bowel sounds active in all 4 quadrants. Musculoskeletal/extremities: nl extremities to inspection, motor strength equal bilaterally, no focal deficit. Normal pulses,no cyanosis, no edema. Neurological: Alert oriented 3,nl speech, nl strength Skin: nl turgor ASSESSMENT/PLAN:88-year-old female w/ multiple comorbidities including CHF, PAF, anemia, CKD, diabetes, hypothyroidism, transferred from [facility] after she was treated for acute respiratory failure secondary to aspiration pneumonia and heart failure for progressive debility. 1. Progressive debility -Continue rehab/PT 2. Status post respiratory failure secondary to aspiration pneumonia/CHF -Stable. Continue to monitor respiratory status. 3. Status post pneumonia -Stable. Treated.. 4. Chronic diastolic congestive heart failure. -Compensated. Continue current cardiac medications/beta-blockers/Lasix 5. Paroxysmal atrial fibrillation. -Stable -Continue Eliquis, Betapace 6.CKD -Stable renal function. 7.DMII -Stable glycemic trends. Continue Tradjenta -Accuchecks/ISS 8. Anemia of CKD. -HH stable. 9. Hypothyroidism -On Synthroid 10. 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 -On allopurinol. 11. UTI. Urine culture noted. -on Ciprox7 days. DVT prophylaxis: [place] Patient was seen in collaboration with . Result Diagram: 02/11/19 0706 02/11/19 0706 Results 24hrs Laboratory Tests Test 02/14/19 12:09 02/14/19 17:17 02/14/19 21:07 02/15/19 07:47 Bedside Glucose 182 132 142 127 Exam/Review of Systems Exam Vitals Vital Signs Date Temp Pulse Resp B/P (MAP) Pulse Ox O2 O2 Flow FiO2 Time Delivery Rate 02/15/19 98.4 60 20 129/59 100 Nasal 07:30 (82) Cannula 02/15/19 2.0 04:03 02/13/19 28 09:12 Intake and Output 02/14/19 02/14/19 02/15/19 1414:59 22:59 06:59 IntakeIntake Total 1000 ml BalanceBalance 1000 ml Results Results 24hrs Laboratory Tests Test 02/14/19 12:09 02/14/19 17:17 02/14/19 21:07 02/15/19 07:47 Bedside Glucose 182 132 142 127 Medications Medication Current Medications Polyethylene Glycol (Miralax) 17 gm DAILY PO Last administered on 02/15/19 09:42; Admin Dose 17 GM; Start 02/11/19 at 09:00 Sotalol HCl (Betapace) 80 mg BID PO Last administered on 02/15/19 09:44; Admin Dose 80 MG; Start 02/11/19 at 09:00 Tiotropium [place] (Spiriva) 1 inh DAILY INH Last administered on 02/15/19 09:43; Admin Dose 1 INH; Start 02/11/19 at 09:00 Lansoprazole (Prevacid) 30 mg BID@0600,1800 PO Last administered on 02/15/19 06:51; Admin Dose 30 MG; Start 02/11/19 at 06:00 Linagliptin (Tradjenta) 5 mg DAILY PO Last administered on 02/15/19 08:13; Admin Dose 5 MG; Start 02/11/19 at 09:00 Lubiprostone (Amitiza) 24 mcg WITH BREAKFAST DINNE PO Last administered on 02/15/19 08:13; Admin Dose 24 MCG; Start 02/11/19 at 07:35 Meclizine HCl (Antivert) 25 mg TID PO Last administered on 02/15/19 09:44; Ad min Dose 25 MG; Start 02/11/19 at 09:00 Megestrol Acetate (Megace Susp) 400 mg DAILY PO Last administered on 02/15/19 09:43; Admin Dose 400 MG; Start 02/11/19 at 09:00 Miscellaneous Information 1 ea NOTE XX ; Start 02/10/19 at 22:30 Glucose (Glutose) 15 gm Q15M PRN PO DECREASED GLUCOSE; Start 02/10/19 at 22:30 Glucose (Glutose) 22.5 gm Q15M PRN PO DECREASED GLUCOSE; Start 02/10/19 at 22:30 Dextrose (D50w Syringe) 25 ml Q15M PRN IV DECREASED GLUCOSE; Start 02/10/19 at 22:30 Dextrose (D50w Syringe) 50 ml Q15M PRN IV DECREASED GLUCOSE; Start 02/10/19 at 22:30 Glucagon (Glucagen) 1 mg Q15M PRN IM DECREASED GLUCOSE; Start 02/10/19 at 22:30 Glucose (Glutose) 15 gm Q15M PRN BUCCAL DECREASED GLUCOSE; Start 02/10/19 at 22:30 Insulin Aspart (Novolog Insulin Pen) (Adult SC Insulin - Mild Algorithm)... AC MEALS AND BEDTIME SC Last administered on 02/14/19at 12:50; Admin Dose 2 UNIT; Start 02/11/19 at 07:05 Diagnostic Test (Pha) (Accu-Chek) 1 ea 02 XX Last administered on 02/12/19 02:00; Admin Dose 1 EA; Start 02/11/19 at 02:00 Levothyroxine Sodium (Synthroid) 75 mcg BEFORE BREAKFAST PO Last administered on 02/15/19 06:51; Admin Dose 75 MCG; Start 02/11/19 at 07:00 Ferrous Sulfate (Ferrous Sulfate (Ec)) 325 mg BID@0600,1800 PO Last administered on 02/15/19 06:51; Admin Dose 325 MG; Start 02/11/19 at 06:00; Stop 03/03/19 at 05:59 Gentamicin Sulfate (Gentamicin 0.3% Oph Drop) 1 drop Q4 RIGHT EYE Last administered on 02/15/19 09:43; Admin Dose 1 DROP; Start 02/11/19 at 01:00 Acetaminophen (Tylenol Tab) 650 mg Q6H PRN PO MILD PAIN(1-3)OR ELEVATED TEMP Last administered on 02/13/19 21:30; Admin Dose 650 MG; Start 02/10/19 at 23:00 Albuterol/ Ipratropium (Duoneb) 3 ml Q4H RESP THERAPY HHN Last administered on 02/15/19 04:03; Admin Dose 3 ML; Start 02/11/19 at 01:00 Albuterol/ Ipratropium (Duoneb) 3 ml Q2H RESP THERAPY PRN HHN SHORTNESS OF BREATH; Start 02/10/19 at 23:00 Allopurinol (Zyloprim) 100 mg DAILY PO Last administered on 02/15/19 09:44; Admin Dose 100 MG; Start 02/11/19 at 09:00 Apixaban (Eliquis) 2.5 mg BID PO Last administered on 02/15/19 09:44; Admin Dose 2.5 MG; Start 02/11/19 at 09:00 Non-Formulary Medication 1 DROP BOTH EYES Q4H PRN BOTH EYES DRY EYES; Start 02/10/19 at 23:30 Latanoprost (Xalatan) 1 drop HS BOTH EYES Last administered on 02/14/19 21:00; Admin Dose 1 DROP; Start 02/11/19 at 21:00 Docusate Sodium (Colace Liquid Cup) 100 mg BID PO Last administered on 02/15/19 09:43; Admin Dose 100 MG; Start 02/11/19 at 21:00 Senna (Senokot) 1 tab HS PO Last administered on 02/14/19 20:57; Admin Dose 1 TAB; Start 02/11/19 at 21:00 Bisacodyl (Dulcolax Supp) 10 mg DAILY PRN [place] CONSTIPATION; Start 02/11/19 at 17:00 Magnesium Hydroxide (Milk Of Mag) 30 ml BID PRN PO CONSTIPATION; Start 02/11/19 at 17:00 Lactulose (Enulose) 20 gm DAILY PRN PO CONSTIPATION Last administered on 02/13/19 08:58; Admin Dose 20 GM; Start 02/11/19 at 17:00 Cyclosporine (Restasis) 1 drop BID BOTH EYES Last administered on 02/15/19 09:43; Admin Dose 1 DROP; Start 02/12/19 at 09:00 Ciprofloxacin (Cipro) 500 mg BID@ PO Last administered on 02/15/19 06:51; Admin Dose 500 MG; Start 02/13/19 at 18:00; Stop 02/20/19 at 17:59 Calcium Carbonate (Tums) 500 mg Q4 PRN PO hyperacidity Last administered on 02/13/19 21:31; Admin Dose 500 MG; Start 02/13/19 at 15:00 Hydralazine HCl (Apresoline) 25 mg TID PO Last administered on 02/15/19 09:45; Admin Dose 25 MG; Start 02/13/19 at 15:00 Alprazolam (Xanax) 0.25 mg HS PRN PO SLEEP Last administered on 02/13/19 21:31; Admin Dose 0.25 MG; Start 02/13/19 at 17:00 ANDREA KHAN NP Feb 15, 2019 11:34
--- NOTE | 2019-02-15 13:08 | PN ---
Date/Time of Note Date/Time of Note DATE: 02/15/19 TIME: 13:07 Objective Vital Signs Date Temp Pulse Resp B/P (MAP) Pulse Ox O2 O2 Flow FiO2 Time Delivery Rate 02/15/19 98.4 60 20 129/59 100 Nasal 07:30 (82) Cannula 02/15/19 2.0 04:03 02/13/19 28 09:12 Intake and Output 02/14/19 02/14/19 02/15/19 1515:00 23:00 07:00 IntakeIntake Total 1000 ml BalanceBalance 1000 ml Exam INTERDISCIPLINARY TEAM CONFERENCE Physical Exam: Pulm-cta Abd-soft BOWEL- Cont BLADDER-Cont SKIN- improving OT- DRESSING-min/mod BATHING-min/mod TOILETING-min/mod PT- BED MOBILITY-min TRANSFERS-min AMBULATION- SPEECH- Dysphagia- puree and thin A/P- Interdisciplinary team conference held today. Please see interdisciplinary sheet. Working toward d.c. on 02/25 with post discharge follow up of physical therapy, occupational therapy. Results/Medications Result Diagram: 02/11/19 0706 02/11/19 0706 Results 24 hrs Laboratory Tests Test 02/14/19 17:17 02/14/19 21:07 02/15/19 07:47 02/15/19 11:43 Bedside Glucose 132 142 127 211 Test 02/15/19 12:08 Bedside Glucose 178 Medications Current Medications Polyethylene Glycol (Miralax) 17 gm DAILY PO Last administered on 02/15/19at 09:42; Admin Dose 17 GM; Start 02/11/19 at 09:00 Sotalol HCl (Betapace) 80 mg BID PO Last administered on 02/15/19at 09:44; Admin Dose 80 MG; Start 02/11/19 at 09:00 Tiotropium [place] (Spiriva) 1 inh DAILY INH Last administered on 02/15/19at 09:43; Admin Dose 1 INH; Start 02/11/19 at 09:00 Lansoprazole (Prevacid) 30 mg BID@0600,1800 PO Last administered on 02/15/19at 06:51; Admin Dose 30 MG; Start 02/11/19 at 06:00 Linagliptin (Tradjenta) 5 mg DAILY PO Last administered on 02/15/19at 08:13; Admin Dose 5 MG; Start 02/11/19 at 09:00 Lubiprostone (Amitiza) 24 mcg WITH BREAKFAST DINNE PO Last administered on 02/15/19 08:13; Admin Dose 24 MCG; Start 02/11/19 at 07:35 Meclizine HCl (Antivert) 25 mg TID PO Last administered on 02/15/19 11:59; Admin Dose 25 MG; Start 02/11/19 at 09:00 Megestrol Acetate (Megace Susp) 400 mg DAILY PO Last administered on 02/15/19 09:43; Admin Dose 400 MG; Start 02/11/19 at 09:00 Miscellaneous Information 1 ea NOTE XX ; Start 02/10/19 at 22:30 Glucose (Glutose) 15 gm Q15M PRN PO DECREASED GLUCOSE; Start 02/10/19 at 22:30 Glucose (Glutose) 22.5 gm Q15M PRN PO DECREASED GLUCOSE; Start 02/10/19 at 22 :30 Dextrose (D50w Syringe) 25 ml Q15M PRN IV DECREASED GLUCOSE; Start 02/10/19 at 22:30 Dextrose (D50w Syringe) 50 ml Q15M PRN IV DECREASED GLUCOSE; Start 02/10/19 at 22:30 Glucagon (Glucagen) 1 mg Q15M PRN IM DECREASED GLUCOSE; Start 02/10/19 at 22:30 Glucose (Glutose) 15 gm Q15M PRN BUCCAL DECREASED GLUCOSE; Start 02/10/19 at 22:30 Insulin Aspart (Novolog Insulin Pen) (Adult SC Insulin - Mild Algorithm)... AC MEALS AND BEDTIME SC Last administered on 02/15/19 11:59; Admin Dose 2 UNIT; Start 02/11/19 at 07:05 Diagnostic Test (Pha) (Accu-Chek) 1 ea 02 XX Last administered on 02/12/19at 02:00; Admin Dose 1 EA; Start 02/11/19 at 02:00 Levothyroxine Sodium (Synthroid) 75 mcg BEFORE BREAKFAST PO Last administered on 02/15/19 06:51; Admin Dose 75 MCG; Start 02/11/19 at 07:00 Ferrous Sulfate (Ferrous Sulfate (Ec)) 325 mg BID@0600,1800 PO Last administered on 02/15/19 06:51; Admin Dose 325 MG; Start 02/11/19 at 06:00; Stop 03/03/19 at 05:59 Gentamicin Sulfate (Gentamicin 0.3% Oph Drop) 1 drop Q4 RIGHT EYE Last administered on 02/15/19at 11:59; Admin Dose 1 DROP; Start 02/11/19 at 01:00 Acetaminophen (Tylenol Tab) 650 mg Q6H PRN PO MILD PAIN(1-3)OR ELEVATED TEMP Last administered on 02/13/19 21:30; Admin Dose 650 MG; Start 02/10/19 at 23:00 Albuterol/ Ipratropium (Duoneb) 3 ml Q4H RESP THERAPY HHN Last administered on 02/15/19 04:03; Admin Dose 3 ML; Start 02/11/19 at 01:00 Albuterol/ Ipratropium (Duoneb) 3 ml Q2H RESP THERAPY PRN HHN SHORTNESS OF BREATH; Start 02/10/19 at 23:00 Allopurinol (Zyloprim) 100 mg DAILY PO Last administered on 02/15/19 09:44; Admin Dose 100 MG; Start 02/11/19 at 09:00 Apixaban (Eliquis) 2.5 mg BID PO Last administered on 02/15/19 09:44; Admin Dose 2.5 MG; Start 02/11/19 at 09:00 Non-Formulary Medication 1 DROP BOTH EYES Q4H PRN BOTH EYES DRY EYES; Start 02/10/19 at 23:30 Latanoprost (Xalatan) 1 drop HS BOTH EYES Last administered on 02/14/19at 21:00; Admin Dose 1 DROP; Start 02/11/19 at 21:00 Docusate Sodium (Colace Liquid Cup) 100 mg BID PO Last administered on 02/15/19 09:43; Admin Dose 100 MG; Start 02/11/19 at 21:00 Senna (Senokot) 1 tab HS PO Last administered on 02/14/19 20:57; Admin Dose 1 TAB; Start 02/11/19 at 21:00 Bisacodyl (Dulcolax Supp) 10 mg DAILY PRN [place] CONSTIPATION; Start 02/11/19 at 17:00 Magnesium Hydroxide (Milk Of Mag) 30 ml BID PRN PO CONSTIPATION; Start 02/11/19 at 17:00 Lactulose (Enulose) 20 gm DAILY PRN PO CONSTIPATION Last administered on 02/13/19 08:58; Admin Dose 20 GM; Start 02/11/19 at 17:00 Cyclosporine (Restasis) 1 drop BID BOTH EYES Last administered on 02/15/19 09:43; Admin Dose 1 DROP; Start 02/12/19 at 09:00 Ciprofloxacin (Cipro) 500 mg BID@,18 PO Last administered on 02/15/19 06:51; Admin Dose 500 MG; Start 02/13/19 at 18:00; Stop 02/20/19 at 17:59 Calcium Carbonate (Tums) 500 mg Q4 PRN PO hyperacidity Last administered on 02/13/19 21:31; Admin Dose 500 MG; Start 02/13/19 at 15:00 Hydralazine HCl (Apresoline) 25 mg TID PO Last administered on 02/15/19 12:26; Admin Dose 25 MG; Start 02/13/19 at 15:00 Alprazolam (Xanax) 0.25 mg HS PRN PO SLEEP Last administered on 02/13/19 21:31; Admin Dose 0.25 MG; Start 02/13/19 at 17:00 ERIC FRIED MD Feb 15, 2019 13:08
[2019-02-15 14:00] VITALS: BP 100/49; PULSE 60; RESP 20
--- NOTE | 2019-02-15 16:25 | CONS ---
Assessment/Plan Assessment/Plan Hospital Course (Demo Recall) IMP: 1.AF-Paced when last on tele. on eliquis 2.PPM-no signs of dysfunction at this time 3.HTN-labile 4.DM 5.sob-likley PNA with possible component of CHF-diastolic EF 60% by echo this admit. Now improved 6. Hypothyroid 7. PNA by chest CT 8. Renal failure-slight worsening Recc: -Now in rehab -serial ecg's -Continue sotalol as tolerated only and follow QTc on sotalol -hydralazine now resumed -Continue abx's and f/u cx data -Follow volume status clsoely with lasix 20 po daily -Continue bronchodilators -PT Consultation Date/Type/Reason Admit Date/Time Feb 10, 2019 at 18:51 Initial Consult Date 02/11/19 Type of Consult Cardiology Reason for Consultation PPM Requesting Provider: HERSON DAVIS MD Date/Time of Note DATE: 02/15/19 TIME: 16:23 Exam/Review of Systems Vital Signs Vitals Vital Signs Date Temp Pulse Resp B/P (MAP) Pulse Ox O2 O2 Flow FiO2 Time Delivery Rate 02/15/19 98.6 60 20 100/49 100 Nasal 14:00 (66) Cannula 02/15/19 2.0 14:00 02/13/19 28 09:12 Intake and Output 02/14/19 02/14/19 02/15/19 1515:00 23:00 07:00 IntakeIntake Total 1000 ml BalanceBalance 1000 ml Exam Exam Review of Systems: CONSTITUTIONAL: No fevers, chills. PULMONARY: No sob CARDIOVASCULAR: No chest pain/palpitations GASTROINTESTINAL: No nausea/vomiting. GENITOURINARY: No hematuria/dysuria. MUSCULOSKELETAL: No myagias/arthalgias. PSYCHIATRIC: The patient denies depression. NEUROLOGIC: No weakness Constitutional: alert Psych: no complaints Head: normocephalic ENMT: mucosa pink and moist Neck: supple, jvd (9 cm water) Respiratory: diminished breath sounds Cardiovascular: regular rate and rhythm Gastrointestinal: soft, non-tender Musculoskeletal: muscle tone (normal) Extremities: edema (none) Neurological: other (No focal deficits) Labs Result Diagram: 02/11/19 0706 02/11/19 0706 Results 24hrs Laboratory Tests Test 3/17/19 17:17 02/14/19 21:07 02/15/19 07:47 02/15/19 11:43 Bedside Glucose 132 142 127 211 Test 02/15/19 12:08 Bedside Glucose 178 Medications Medications Current Medications Polyethylene Glycol (Miralax) 17 gm DAILY PO Last administered on 02/15/19 09:42; Admin Dose 17 GM; Start 02/11/19 at 09:00 Sotalol HCl (Betapace) 80 mg BID PO Last administered on 02/15/19 09:44; Admin Dose 80 MG; Start 02/11/19 at 09:00 Tiotropium [place] (Spiriva) 1 inh DAILY INH Last administered on 02/15/19 09:43; Admin Dose 1 INH; Start 02/11/19 at 09:00 Lansoprazole (Prevacid) 30 mg BID@0600,1800 PO Last administered on 02/15/19 06:51; Admin Dose 30 MG; Start 02/11/19 at 06:00 Linagliptin (Tradjenta) 5 mg DAILY PO Last administered on 02/15/19 08:13; Admin Dose 5 MG; Start 02/11/19 at 09:00 Lubiprostone (Amitiza) 24 mcg WITH BREAKFAST DINNE PO Last administered on 02/15/19 08:13; Admin Dose 24 MCG; Start 02/11/19 at 07:35 Meclizine HCl (Antivert) 25 mg TID PO Last administered on 02/15/19 11:59; Admin Dose 25 MG; Start 02/11/19 at 09:00 Megestrol Acetate (Megace Susp) 400 mg DAILY PO Last administered on 02/15/19 09:43; Admin Dose 400 MG; Start 02/11/19 at 09:00 Miscellaneous Information 1 ea NOTE XX ; Start 02/10/19 at 22:30 Glucose (Glutose) 15 gm Q15M PRN PO DECREASED GLUCOSE; Start 02/10/19 at 22:30 Glucose (Glutose) 22.5 gm Q15M PRN PO DECREASED GLUCOSE; Start 02/10/19 at 22:30 Dextrose (D50w Syringe) 25 ml Q15M PRN IV DECREASED GLUCOSE; Start 02/10/19 at 22:30 Dextrose (D50w Syringe) 50 ml Q15M PRN IV DECREASED GLUCOSE; Start 02/10/19 at 22:30 Glucagon (Glucagen) 1 mg Q15M PRN IM DECREASED GLUCOSE; Start 02/10/19 at 22:30 Glucose (Glutose) 15 gm Q15M PRN BUCCAL DECREASED GLUCOSE; Start 02/10/19 at 22:30 Insulin Aspart (Novolog Insulin Pen) (Adult SC Insulin - Mild Algorithm)... AC MEALS AND BEDTIME SC Last administered on 02/15/19 11:59; Admin Dose 2 UNIT; Start 02/11/19 at 07:05 Diagnostic Test (Pha) (Accu-Chek) 1 ea 02 XX Last administered on 02/12/19 02:00; Admin Dose 1 EA; Start 02/11/19 at 02:00 Levothyroxine Sodium (Synthroid) 75 mcg BEFORE BREAKFAST PO Last administered on 02/15/19 06:51; Admin Dose 75 MCG; Start 02/11/19 at 07:00 Ferrous Sulfate (Ferrous Sulfate (Ec)) 325 mg BID@0600,1800 PO Last administered on 02/15/19 06:51; Admin Dose 325 MG; Start 02/11/19 at 06:00; Stop 03/03/19 at 05:59 Gentamicin Sulfate (Gentamicin 0.3% Oph Drop) 1 drop Q4 RIGHT EYE Last administered on 02/15/19 11:59; Admin Dose 1 DROP; Start 02/11/19 at 01:00 Acetaminophen (Tylenol Tab) 650 mg Q6H PRN PO MILD PAIN(1-3)OR ELEVATED TEMP Last administered on 02/13/19 21:30; Admin Dose 650 MG; Start 02/10/19 at 23:00 Albuterol/ Ipratropium (Duoneb) 3 ml Q4H RESP THERAPY HHN Last administered on 02/15/19 13:58; Admin Dose 3 ML; Start 02/11/19 at 01:00 Albuterol/ Ipratropium (Duoneb) 3 ml Q2H RESP THERAPY PRN HHN SHORTNESS OF BREATH; Start 02/10/19 at 23:00 Allopurinol (Zyloprim) 100 mg DAILY PO Last administered on 02/15/19 09:44; A dmin Dose 100 MG; Start 02/11/19 at 09:00 Apixaban (Eliquis) 2.5 mg BID PO Last administered on 02/15/19 09:44; Admin Dose 2.5 MG; Start 02/11/19 at 09:00 Non-Formulary Medication 1 DROP BOTH EYES Q4H PRN BOTH EYES DRY EYES; Start 02/10/19 at 23:30 Latanoprost (Xalatan) 1 drop HS BOTH EYES Last administered on 02/14/19 21:00; Admin Dose 1 DROP; Start 02/11/19 at 21:00 Docusate Sodium (Colace Liquid Cup) 100 mg BID PO Last administered on 02/15/19 09:43; Admin Dose 100 MG; Start 02/11/19 at 21:00 Senna (Senokot) 1 tab HS PO Last administered on 02/14/19 20:57; Admin Dose 1 TAB; Start 02/11/19 at 21:00 Bisacodyl (Dulcolax Supp) 10 mg DAILY PRN [place] CONSTIPATION; Start 02/11/19 at 17:00 Magnesium Hydroxide (Milk Of Mag) 30 ml BID PRN PO CONSTIPATION; Start 02/11/19 at 17:00 Lactulose (Enulose) 20 gm DAILY PRN PO CONSTIPATION Last administered on 02/13/19 08:58; Admin Dose 20 GM; Start 02/11/19 at 17:00 Cyclosporine (Restasis) 1 drop BID BOTH EYES Last administered on 02/15/19 09:43; Admin Dose 1 DROP; Start 02/12/19 at 09:00 Ciprofloxacin (Cipro) 500 mg BID@06,18 PO Last administered on 02/15/19 06:51; Admin Dose 500 MG; Start 02/13/19 at 18:00; Stop 02/20/19 at 17:59 Calcium Carbonate (Tums) 500 mg Q4 PRN PO hyperacidity Last administered on 02/13/19 21:31; Admin Dose 500 MG; Start 02/13/19 at 15:00 Hydralazine HCl (Apresoline) 25 mg TID PO Last administered on 02/15/19 12:26; Admin Dose 25 MG; Start 02/13/19 at 15:00 Alprazolam (Xanax) 0.25 mg HS PRN PO SLEEP Last administered on 02/13/19 21:31; Admin Dose 0.25 MG; Start 02/13/19 at 17:00 SHAWANDA LUGO 18, 2019 16:25
[2019-02-15 20:00] VITALS: BP 99/48; PULSE 81; RESP 18
[2019-02-15] MEDS: SENNA TAB PO SCH (21:20)
[2019-02-15] MEDS: LATANOPROST 0.005% 2.5 ML OPH BOTH EYES SCH (21:20)
[2019-02-15] MEDS: ALPRAZOLAM 0.25 MG TAB PO PRN (21:21)
[2019-02-16] MEDS: ALBUTEROL/IPRATROPIUM (NEB) 3 ML AMP HHN SCH ×6 (00:57→20:55)
[2019-02-16 02:00] VITALS: BP 131/61; PULSE 55; RESP 18
[2019-02-16] MEDS: ACCUCHECK AT 2AM (Patients on SS coverage) XX SCH (02:00)
[2019-02-16] MEDS ORDERED: FUROSEMIDE 20 MG TAB PO ONE (06:00)
[2019-02-16] MEDS: LEVOTHYROXINE 75 MCG TAB PO SCH (06:31)
[2019-02-16] MEDS: LANSOPRAZOLE 30 MG CAP PO SCH ×2 (06:31→17:51)
[2019-02-16] MEDS: CIPROFLOXACIN 500 MG TAB PO SCH ×2 (06:31→17:51)
[2019-02-16] MEDS: FERROUS SULFATE (EC) 325 MG TAB PO SCH ×2 (06:32→17:51)
[2019-02-16 07:00] VITALS: BP 129/60; PULSE 62; RESP 18
[2019-02-16] MEDS: Insulin NOVOLOG SS MILD Algorithm (SS with meals and bedtime) SC SCH ×4 (07:05→22:32)
[2019-02-16] MEDS: DOCUSATE SODIUM 10 MG/ML (10ML CUP) PO SCH ×2 (09:54→22:09)
[2019-02-16] MEDS: LINAGLIPTIN 5 MG TABLET PO SCH (09:54)
[2019-02-16] MEDS: POLYETHYLENE GLYCOL 17 GM PACKET PO SCH (09:54)
[2019-02-16] MEDS: ALLOPURINOL 100 MG TAB PO SCH (09:54)
[2019-02-16] MEDS: MECLIZINE 25 MG TAB PO SCH ×3 (09:54→22:26)
[2019-02-16] MEDS: TIOTROPIUM 18 MCG CAPSULE INHA DEV INH SCH (09:54)
[2019-02-16] MEDS: CYCLOSPORINE 0.05% OPH DROPERETTE BOTH EYES SCH ×2 (09:54→22:05)
[2019-02-16] MEDS: MEGESTROL (40 MG/ML) 10ML CUP PO SCH (09:54)
[2019-02-16] MEDS: APIXABAN 5 MG TABLET PO SCH ×2 (09:54→22:05)
[2019-02-16] MEDS: LUBIPROSTONE 24 MCG CAP PO SCH ×2 (09:57→17:51)
[2019-02-16] MEDS: SOTALOL 80 MG TAB PO SCH ×2 (10:07→21:00)
--- NOTE | 2019-02-16 11:12 | CONS ---
Consult Date/Type/Reason Admit Date/Time Feb 10, 2019 at 18:51 Initial Consult Date Requesting Provider: HERSON DAVIS MD Date/Time of Note DATE: 02/16/19 TIME: 11:10 Subjective NO acute events - pt comfortable - better overall - con't to follow- much better with rehab ROS: No fever, no chills, no nausea, no vomiting, no diarrhea/constipation No recent weight changes No chest pain, no PND, no orthopnea - mild SOB No dizziness, blurred vision No thirst, no heat or cold intolerance Objective Vitals Vital Signs Date Temp Pulse Resp B/P (MAP) Pulse Ox O2 O2 Flow FiO2 Time Delivery Rate 02/16/19 98.1 62 18 129/60 96 Room Air 07:00 (83) 02/16/19 21 00:57 02/15/19 2.0 21:00 Intake and Output 02/15/19 02/15/19 02/16/19 1515:00 23:00 07:00 IntakeIntake Total 200 ml 620 ml OutputOutput Total 150 ml BalanceBalance 200 ml 620 ml -150 ml Exam General: WN/WD/NAD, AOx 2-3 English HEENT: Unicetric/atraumatic/EOMI ( follow commands) NECK: JVD elevated, no thyromegaly Lymph: no lymphadenopathy HEART: regular with no S3, II/ systolic murmur at apex., pacer LUNGS: Coarse sounds ABD: soft, NT, ND, +BS : Intact Neuro: non focal SKIN: chronic changes EXT: trace edema Results/Medications Results 24 hrs Laboratory Tests Test 02/15/19 11:43 02/15/19 12:08 02/15/19 17:09 02/15/19 21:05 Bedside Glucose 211 178 132 155 Test 02/16/19 08:02 Bedside Glucose 120 Home Meds Active Scripts Metronidazole* (Flagyl*) 500 Mg Tablet, 500 MG PO Q8 for 4 Days, TAB Prov:CHARMAINE MENCHACA MD 02/10/19 Doxycycline Hyclate* (Doxycycline Hyclate*) 100 Mg Tablet.dr, 100 MG PO BID for pneumonia+ bronchitis for 4 Days, TAB Prov:CHARMAINE MENCHACA MD 02/10/19 Meclizine Hcl* (Meclizine Hcl*) 25 Mg Tablet, 25 MG PO TID for vertigo, #30 TAB Prov:PORFIRIO KHANNA ErichGavino EPPERSON 12/19/17 Polyethylene Glycol* (Miralax*) 17 Gm Powd.pack, 17 GM PO DAILY for 10 Days Prov:HERSON DAVIS MD 11/27/16 Lubiprostone* (Amitiza*) 24 Mcg Capsule, 24 MCG PO WITH BREAKFAST DINNE for 28 Days, CAP Prov:HERSON DAVIS MD 11/27/16 Ipratropium-Albuterol (Ipratropium-Albuterol) 0.5-3 Mg/3 Ml Ampul.neb, 3 ML HHN Q2H RESP THERAPY PRN for SHORTNESS OF BREATH for 28 Days Prov:HERSON DAVIS MD 11/27/16 Furosemide* (Lasix*) 20 Mg Tablet, 20 MG PO QAM, #90 TAB Prov:KEVIN ZHOU MD 11/23/16 Omeprazole* (Omeprazole*) 20 Mg Capsule.dr, 40 MG PO BID, #60 CAP Prov:RICARDO ARREGUIN MD 11/13/16 Reported Medications Apixaban* (Eliquis*) 2.5 Mg Tablet, 2.5 MG PO BID, TAB 02/01/19 Travoprost* (Travatan Z*) 2.5 Ml Drops, 1 DROP BOTH EYES HS, #1 BOTTLE 02/01/19 Gentamicin Sulfate* (Gentamicin Sulfate* Ophth) 0.3% - 5 Ml Drops, 1 DROP LEFT EYE Q4, EA 02/01/19 Cyclosporine (Restasis Multidose) 5.5 Ml Drops, 1 DROP OP BID, BOTTLE 02/01/19 Polyethylene Glycol* (Miralax*) 17 Gm Powd.pack, 17 GM PO DAILY, #30 PACKET 11/21/16 Potassium Chloride* (Potassium Chloride*) 8 Meq Capsule.er, 8 MEQ PO every other day, CAP 11/21/16 Docusate Sodium* (Colace*) 250 Mg Capsule, 250 MG PO DAILY, #30 CAP 11/21/16 Ferrous Sulfate* (Ferrous Sulfate*) 325 Mg Tabec, 325 MG PO BID, TAB 11/09/16 Levothyroxine Sodium* (Levothyroxine Sodium*) 75 Mcg Tablet, 75 MCG PO BEFORE BREAKFAST, #30 TAB 09/14/16 Sotalol Hcl* (Sotalol Hcl*) 80 Mg Tablet, 80 MG PO BID, TAB 09/14/16 Sitagliptin Phos/Metformin HCl (Janumet 50-500 mg Tablet) 1 Each Tablet, 1 EACH PO DAILY AM, TAB 09/14/16 Discontinued Reported Medications Peg 400/Hypromellose/Glycerin (EYE DROP TEARS) 15 Ml Drops, 1 DROP OP Q4 PRN for DRY EYES, BOTTLE 02/01/19 Warfarin Sodium* (Coumadin*) 3 Mg Tablet, 3 MG PO DAILY, TAB 09/14/16 Discontinued Scripts Neomycin/Polymyxin/Hydrocort* (Cortisporin* Otic) 10 Ml Susp, 4 DROP RIGHT EAR QID for 7 Days, EA Prov:PORFIRIO KHANNA DO 12/19/17 Levofloxacin* (Levaquin*) 500 Mg Tablet, 500 MG PO DAILY for 7 Days, TAB Prov:PORFIRIO KHANNA DO 12/19/17 Hydrocodone-Homatropine* (Hydrocodone-Homatropine*) 5MG-1.5MG/5 Ml Syrup, 5 ML PO PRN PRN for COUGH for 14 Days Prov:HERSON DAVIS MD 11/27/16 Medications Current Medications Polyethylene Glycol (Miralax) 17 gm DAILY PO Last administered on 02/16/19 09:54; Admin Dose 17 GM; Start 02/11/19 at 09:00 Sotalol HCl (Betapace) 80 mg BID PO Last administered on 02/16/19 10:07; Admin Dose 80 MG; Start 02/11/19 at 09:00 Tiotropium [place] (Spiriva) 1 inh DAILY INH Last administered on 02/16/19 09:54; Admin Dose 1 INH; Start 02/11/19 at 09:00 Lansoprazole (Prevacid) 30 mg BID@0600,1800 PO Last administered on 02/16/19 06:31; Admin Dose 30 MG; Start 02/11/19 at 06:00 Linagliptin (Tradjenta) 5 mg DAILY PO Last administered on 02/16/19 09:54; Admin Dose 5 MG; Start 02/11/19 at 09:00 Lubiprostone (Amitiza) 24 mcg WITH BREAKFAST DINNE PO Last administered on 02/16/19 09:57; Admin Dose 24 MCG; Start 02/11/19 at 07:35 Meclizine HCl (Antivert) 25 mg TID PO Last administered on 02/16/19 09:54; Admin Dose 25 MG; Start 02/11/19 at 09:00 Megestrol Acetate (Megace Susp) 400 mg DAILY PO Last administered on 02/16/19 09:54; Admin Dose 400 MG; Start 02/11/19 at 09:00 Miscellaneous Information 1 ea NOTE XX ; Start 02/10/19 at 22:30 Glucose (Glutose) 15 gm Q15M PRN PO DECREASED GLUCOSE; Start 02/10/19 at 22:30 Glucose (Glutose) 22.5 gm Q15M PRN PO DECREASED GLUCOSE; Start 02/10/19 at 22:30 Dextrose (D50w Syringe) 25 ml Q15M PRN IV DECREASED GLUCOSE; Start 02/10/19 at 22:30 Dextrose (D50w Syringe) 50 ml Q15M PRN IV DECREASED GLUCOSE; Start 02/10/19 at 22:30 Glucagon (Glucagen) 1 mg Q15M PRN IM DECREASED GLUCOSE; Start 02/10/19 at 22:30 Glucose (Glutose) 15 gm Q15M PRN BUCCAL DECREASED GLUCOSE; Start 02/10/19 at 22:30 Insulin Aspart (Novolog Insulin Pen) (Adult SC Insulin - Mild Algorithm)... AC MEALS AND BEDTIME SC Last administered on 02/15/19at 11:59; Admin Dose 2 UNIT; Start 02/11/19 at 07:05 Diagnostic Test (Pha) (Accu-Chek) 1 ea 02 XX Last administered on 02/12/19at 02:00; Admin Dose 1 EA; Start 02/11/19 at 02:00 Levothyroxine Sodium (Synthroid) 75 mcg BEFORE BREAKFAST PO Last administered on 02/16/19 06:31; Admin Dose 75 MCG; Start 02/11/19 at 07:00 Ferrous Sulfate (Ferrous Sulfate (Ec)) 325 mg BID@0600,1800 PO Last administered on 02/16/19 06:32; Admin Dose 325 MG; Start 02/11/19 at 06:00; Stop 03/03/19 at 05:59 Acetaminophen (Tylenol Tab) 650 mg Q6H PRN PO MILD PAIN(1-3)OR ELEVATED TEMP Last administered on 02/13/19 21:30; Admin Dose 650 MG; Start 02/10/19 at 23:00 Albuterol/ Ipratropium (Duoneb) 3 ml Q4H RESP THERAPY HHN Last administered on 02/16/19 00:57; Admin Dose 3 ML; Start 02/11/19 at 01:00 Albuterol/ Ipratropium (Duoneb) 3 ml Q2H RESP THERAPY PRN HHN SHORTNESS OF BREATH; Start 02/10/19 at 23:00 Allopurinol (Zyloprim) 100 mg DAILY PO Last administered on 02/16/19 09:54; Admin Dose 100 MG; Start 02/11/19 at 09:00 Apixaban (Eliquis) 2.5 mg BID PO Last administered on 02/16/19 09:54; Admin Dose 2.5 MG; Start 02/11/19 at 09:00 Non-Formulary Medication 1 DROP BOTH EYES Q4H PRN BOTH EYES DRY EYES Last administered on 02/15/19 19:07; Admin Dose 1 EA; Start 02/10/19 at 23:30 Latanoprost (Xalatan) 1 drop HS BOTH EYES Last administered on 02/15/19 21:20; Admin Dose 1 DROP; Start 02/11/19 at 21:00 Docusate Sodium (Colace Liquid Cup) 100 mg BID PO Last administered on 09:54; Admin Dose 100 MG; Start 02/11/19 at 21:00 Senna (Senokot) 1 tab HS PO Last administered on 02/15/19 21:20; Admin Dose 1 TAB; Start 02/11/19 at 21:00 Bisacodyl (Dulcolax Supp) 10 mg DAILY PRN [place] CONSTIPATION; Start 02/11/19 at 17:00 Magnesium Hydroxide (Milk Of Mag) 30 ml BID PRN PO CONSTIPATION; Start 02/11/19 at 17:00 Lactulose (Enulose) 20 gm DAILY PRN PO CONSTIPATION Last administered on 02/13/19 08:58; Admin Dose 20 GM; Start 02/11/19 at 17:00 Cyclosporine (Restasis) 1 drop BID BOTH EYES Last administered on 02/16/19 09:54; Admin Dose 1 DROP; Start 02/12/19 at 09:00 Ciprofloxacin (Cipro) 500 mg BID@06,18 PO Last administered on 02/16/19at 06:31; Admin Dose 500 MG; Start 02/13/19 at 18:00; Stop 02/20/19 at 17:59 Calcium Carbonate (Tums) 500 mg Q4 PRN PO hyperacidity Last administered on 02/13/19 21:31; Admin Dose 500 MG; Start 02/13/19 at 15:00 Hydralazine HCl (Apresoline) 25 mg TID PO Last administered on 02/16/19at 10:06; Admin Dose 25 MG; Start 02/13/19 at 15:00 Alprazolam (Xanax) 0.25 mg HS PRN PO SLEEP Last administered on 02/15/19 21:21; Admin Dose 0.25 MG; Start 02/13/19 at 17:00 Assessment/Plan Hospital Course (Demo Recall) 1.AF-Paced when last on tele. on eliquis - rate controlled - off tele, will follow. Rate controlled. 2.PPM-no signs of dysfunction at this time - checked in the office recently - site looks well. 3.HTN-labile - add rx now - treated. BETTER overall. 4.DM - on meds, keep euglycemic - primary team follows. 5.Sob-likely PNA with possible component of CHF-diastolic EF 60% by echo this admit. On antibx as needed - on meds. Improved. 6. Hypothyroid 7. PNA by chest CT - con't Rx - better now. 8. Renal failure- avid nephrotoxic meds - stable urine output. CARLOS EDUARDO AVILES MD Feb 16, 2019 11:12
[2019-02-16] MEDS ORDERED: FUROSEMIDE 20 MG INJ IV ONE (12:00)
--- NOTE | 2019-02-16 12:40 | PN ---
Date/Time of Note Date/Time of Note DATE: 02/16/19 TIME: 12:39 Assessment/Plan VTE Prophylaxis Risk score (from Ns)>0 risk: 6 SCD applied (from Ns): No SCD contraindicated: other Pharmacological prophylaxis: apixaban Lines/Catheters IV Catheter Type (from [facility]): Peripheral IV Urinary Cath still in place: No Assessment/Plan Hospital Course SUBJECTIVE: No acute overnight episodes. OBJECTIVE: Vital signs-see below PHYSICAL EXAM: Constitutional: Frail looking, elderly female, not in acute distress. Psych: nl mood/affect, no complaints Head: atraumatic, normocephalic Eyes: nl conjunctiva, nl sclera ENMT: mucosa pink and moist, nl external ears & nose Neck: non-tender, supple Respiratory: clear bilaterally, normal air movement Cardiovascular: . nl pulses, regular rate and rhythm Gastrointestinal: non-tender, soft, bowel sounds active in all 4 quadrants. Musculoskeletal/extremities: nl extremities to inspection, motor strength equal bilaterally, no focal deficit. Normal pulses,no cyanosis, no edema. Neurological: Alert oriented 3,nl speech, nl strength Skin: nl turgor ASSESSMENT/PLAN:88-year-old female w/ multiple comorbidities including CHF, PAF, anemia, CKD, diabetes, hypothyroidism, transferred from [facility] after she was treated for acute respiratory failure secondary to aspiration pneumonia and heart failure for progressive debility. 1. Progressive debility -Continue rehab/PT 2. Status post respiratory failure secondary to aspiration pneumonia/CHF -Stable. Continue to monitor respiratory status. 3. Status post pneumonia -Stable. Treated.. 4. Chronic diastolic congestive heart failure. -Compensated. Continue current cardiac medications/beta-blockers/Lasix 5. Paroxysmal atrial fibrillation. -Stable -Continue Eliquis, Betapace 6.CKD -Stable renal function. 7.DMII -Stable glycemic trends. Continue Tradjenta -Accuchecks/ISS 8. Anemia of CKD. -HH stable. 9. Hypothyroidism -On Synthroid 10. 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 -On allopurinol. 11. UTI. Urine culture noted. -on Ciprox7 days. DVT prophylaxis: Santos Patient was seen in collaboration with . Results 24hrs Laboratory Tests Test 02/15/19 17:09 02/15/19 21:05 02/16/19 08:02 02/16/19 11:52 Bedside Glucose 132 155 120 235 H Exam/Review of Systems Exam Vitals Vital Signs Date Temp Pulse Resp B/P (MAP) Pulse Ox O2 O2 Flow FiO2 Time Delivery Rate 02/16/19 98.1 62 18 129/60 96 Room Air 07:00 (83) 02/16/19 21 00:57 02/15/19 2.0 21:00 Intake and Output 02/15/19 02/15/19 02/16/19 1515:00 23:00 07:00 IntakeIntake Total 200 ml 620 ml OutputOutput Total 150 ml BalanceBalance 200 ml 620 ml -150 ml Results Results 24hrs Laboratory Tests Test 02/15/19 17:09 02/15/19 21:05 02/16/19 08:02 02/16/19 11:52 Bedside Glucose 132 155 120 235 H Medications Medication Current Medications Polyethylene Glycol (Miralax) 17 gm DAILY PO Last administered on 02/16/19 09:54; Admin Dose 17 GM; Start 02/11/19 at 09:00 Sotalol HCl (Betapace) 80 mg BID PO Last administered on 02/16/19 10:07; Admin Dose 80 MG; Start 02/11/19 at 09:00 Tiotropium [place] (Spiriva) 1 inh DAILY INH Last administered on 02/16/19 09:54; Admin Dose 1 INH; Start 02/11/19 at 09:00 Lansoprazole (Prevacid) 30 mg BID@0600,1800 PO Last administered on 02/16/19 06:31; Admin Dose 30 MG; Start 02/11/19 at 06:00 Linagliptin (Tradjenta) 5 mg DAILY PO Last administered on 02/16/19 09:54; Admin Dose 5 MG; Start 02/11/19 at 09:00 Lubiprostone (Amitiza) 24 mcg WITH BREAKFAST DINNE PO Last administered on 02/16/19 09:57; Admin Dose 24 MCG; Start 02/11/19 at 07:35 Meclizine HCl (Antivert) 25 mg TID PO Last administered on 02/16/19 12:31; Admin Dose 25 MG; Start 02/11/19 at 09:00 Megestrol Acetate (Megace Susp) 400 mg DAILY PO Last administered on 3/19/19at 09:54; Admin Dose 400 MG; Start 02/11/19 at 09:00 Miscellaneous Information 1 ea NOTE XX ; Start 02/10/19 at 22:30 Glucose (Glutose) 15 gm Q15M PRN PO DECREASED GLUCOSE; Start 02/10/19 at 22:30 Glucose (Glutose) 22.5 gm Q15M PRN PO DECREASED GLUCOSE; Start 02/10/19 at 22:30 Dextrose (D50w Syringe) 25 ml Q15M PRN IV DECREASED GLUCOSE; Start 02/10/19 at 22:30 Dextrose (D50w Syringe) 50 ml Q15M PRN IV DECREASED GLUCOSE; Start 02/10/19 at 22:30 Glucagon (Glucagen) 1 mg Q15M PRN IM DECREASED GLUCOSE; Start 02/10/19 at 22:30 Glucose (Glutose) 15 gm Q15M PRN BUCCAL DECREASED GLUCOSE; Start 02/10/19 at 22:30 Insulin Aspart (Novolog Insulin Pen) (Adult SC Insulin - Mild Algorithm)... AC MEALS AND BEDTIME SC Last administered on 02/16/19at 12:22; Admin Dose 3 UNIT; Start 02/11/19 at 07:05 Diagnostic Test (Pha) (Accu-Chek) 1 ea 02 XX Last administered on 02/12/19at 02:00; Admin Dose 1 EA; Start 02/11/19 at 02:00 Levothyroxine Sodium (Synthroid) 75 mcg BEFORE BREAKFAST PO Last administered on 02/16/19 06:31; Admin Dose 75 MCG; Start 02/11/19 at 07:00 Ferrous Sulfate (Ferrous Sulfate (Ec)) 325 mg BID@0600,1800 PO Last administered on 02/16/19at 06:32; Admin Dose 325 MG; Start 02/11/19 at 06:00; Stop 03/03/19 at 05:59 Acetaminophen (Tylenol Tab) 650 mg Q6H PRN PO MILD PAIN(1-3)OR ELEVATED TEMP Last administered on 02/13/19at 21:30; Admin Dose 650 MG; Start 02/10/19 at 23:00 Albuterol/ Ipratropium (Duoneb) 3 ml Q4H RESP THERAPY HHN Last administered on 02/16/19at 00:57; Admin Dose 3 ML; Start 02/11/19 at 01:00 Albuterol/ Ipratropium (Duoneb) 3 ml Q2H RESP THERAPY PRN HHN SHORTNESS OF BREATH; Start 02/10/19 at 23:00 Allopurinol (Zyloprim) 100 mg DAILY PO Last administered on 02/16/19 09:54; Admin Dose 100 MG; Start 02/11/19 at 09:00 Apixaban (Eliquis) 2.5 mg BID PO Last administered on 02/16/19 09:54; Admin Dose 2.5 MG; Start 02/11/19 at 09:00 Non-Formulary Medication 1 DROP BOTH EYES Q4H PRN BOTH EYES DRY EYES Last administered on 02/15/19 19:07; Admin Dose 1 EA; Start 02/10/19 at 23:30 Latanoprost (Xalatan) 1 drop HS BOTH EYES Last administered on 02/15/19 21:20; Admin Dose 1 DROP; Start 02/11/19 at 21:00 Docusate Sodium (Colace Liquid Cup) 100 mg BID PO Last administered on 02/16/19 09:54; Admin Dose 100 MG; Start 02/11/19 at 21:00 Senna (Senokot) 1 tab HS PO Last administered on 02/15/19 21:20; Admin Dose 1 TAB; Start 02/11/19 at 21:00 Bisacodyl (Dulcolax Supp) 10 mg DAILY PRN [place] CONSTIPATION; Start 02/11/19 at 17:00 Magnesium Hydroxide (Milk Of Mag) 30 ml BID PRN PO CONSTIPATION; Start 02/11/19 at 17:00 Lactulose (Enulose) 20 gm DAILY PRN PO CONSTIPATION Last administered on 02/13/19 08:58; Admin Dose 20 GM; Start 02/11/19 at 17:00 Cyclosporine (Restasis) 1 drop BID BOTH EYES Last administered on 02/16/19 09:54; Admin Dose 1 DROP; Start 02/12/19 at 09:00 Ciprofloxacin (Cipro) 500 mg BID@,18 PO Last administered on 02/16/19 06:31; Admin Dose 500 MG; Start 02/13/19 at 18:00; Stop 02/20/19 at 17:59 Calcium Carbonate (Tums) 500 mg Q4 PRN PO hyperacidity Last administered on 3/16/19at 21:31; Admin Dose 500 MG; Start 02/13/19 at 15:00 Hydralazine HCl (Apresoline) 25 mg TID PO Last administered on 02/16/19 10:06; Admin Dose 25 MG; Start 02/13/19 at 15:00 Alprazolam (Xanax) 0.25 mg HS PRN PO SLEEP Last administered on 02/15/19 21:21; Admin Dose 0.25 MG; Start 02/13/19 at 17:00 ANDREA KHAN NP Feb 16, 2019 12:40
--- NOTE | 2019-02-16 13:16 | PN ---
Date/Time of Note Date/Time of Note DATE: 02/16/19 TIME: 13:16 Subjective No new complaints Objective Vital Signs Date Temp Pulse Resp B/P (MAP) Pulse Ox O2 O2 Flow FiO2 Time Delivery Rate 02/16/19 98.1 62 18 129/60 96 Room Air 07:00 (83) 02/16/19 21 00:57 02/15/19 2.0 21:00 Intake and Output 02/15/19 02/15/19 02/16/19 1515:00 23:00 07:00 IntakeIntake Total 200 ml 620 ml OutputOutput Total 150 ml BalanceBalance 200 ml 620 ml -150 ml Exam pulm-cta mod assist Results/Medications Results 24 hrs Laboratory Tests Test 02/15/19 17:09 02/15/19 21:05 02/16/19 08:02 02/16/19 11:52 Bedside Glucose 132 155 120 235 H Medications Current Medications Polyethylene Glycol (Miralax) 17 gm DAILY PO Last administered on 02/16/19 09:54; Admin Dose 17 GM; Start 02/11/19 at 09:00 Sotalol HCl (Betapace) 80 mg BID PO Last administered on 02/16/19 10:07; Admin Dose 80 MG; Start 02/11/19 at 09:00 Tiotropium [place] (Spiriva) 1 inh DAILY INH Last administered on 02/16/19 09:54; Admin Dose 1 INH; Start 02/11/19 at 09:00 Lansoprazole (Prevacid) 30 mg BID@0600,1800 PO Last administered on 02/16/19 06:31; Admin Dose 30 MG; Start 02/11/19 at 06:00 Linagliptin (Tradjenta) 5 mg DAILY PO Last administered on 02/16/19 09:54; Admin Dose 5 MG; Start 02/11/19 at 09:00 Lubiprostone (Amitiza) 24 mcg WITH BREAKFAST DINNE PO Last administered on 02/16/19 09:57; Admin Dose 24 MCG; Start 02/11/19 at 07:35 Meclizine HCl (Antivert) 25 mg TID PO Last administered on 02/16/19 12:31; Admin Dose 25 MG; Start 02/11/19 at 09:00 Megestrol Acetate (Megace Susp) 400 mg DAILY PO Last administered on 02/16/19at 09:54; Admin Dose 400 MG; Start 02/11/19 at 09:00 Miscellaneous Information 1 ea NOTE XX ; Start 02/10/19 at 22:30 Glucose (Glutose) 15 gm Q15M PRN PO DECREASED GLUCOSE; Start 02/10/19 at 22:30 Glucose (Glutose) 22.5 gm Q15M PRN PO DECREASED GLUCOSE; Start 02/10/19 at 22:30 Dextrose (D50w Syringe) 25 ml Q15M PRN IV DECREASED GLUCOSE; Start 02/10/19 at 22:30 Dextrose (D50w Syringe) 50 ml Q15M PRN IV DECREASED GLUCOSE; Start 02/10/19 at 22:30 Glucagon (Glucagen) 1 mg Q15M PRN IM DECREASED GLUCOSE; Start 02/10/19 at 22:30 Glucose (Glutose) 15 gm Q15M PRN BUCCAL DECREASED GLUCOSE; Start 02/10/19 at 22:30 Insulin Aspart (Novolog Insulin Pen) (Adult SC Insulin - Mild Algorithm)... AC MEALS AND BEDTIME SC Last administered on 02/16/19at 12:22; Admin Dose 3 UNIT; Start 02/11/19 at 07:05 Diagnostic Test (Pha) (Accu-Chek) 1 ea 02 XX Last administered on 02/12/19at 02:00; Admin Dose 1 EA; Start 02/11/19 at 02:00 Levothyroxine Sodium (Synthroid) 75 mcg BEFORE BREAKFAST PO Last administered on 02/16/19 06:31; Admin Dose 75 MCG; Start 02/11/19 at 07:00 Ferrous Sulfate (Ferrous Sulfate (Ec)) 325 mg BID@0600,1800 PO Last administered on 02/16/19at 06:32; Admin Dose 325 MG; Start 02/11/19 at 06:00; Stop 03/03/19 at 05:59 Acetaminophen (Tylenol Tab) 650 mg Q6H PRN PO MILD PAIN(1-3)OR ELEVATED TEMP Last administered on 02/13/19at 21:30; Admin Dose 650 MG; Start 02/10/19 at 23:00 Albuterol/ Ipratropium (Duoneb) 3 ml Q4H RESP THERAPY HHN Last administered on 02/16/19at 00:57; Admin Dose 3 ML; Start 02/11/19 at 01:00 Albuterol/ Ipratropium (Duoneb) 3 ml Q2H RESP THERAPY PRN HHN SHORTNESS OF BREATH; Start 02/10/19 at 23:00 Allopurinol (Zyloprim) 100 mg DAILY PO Last administered on 02/16/19 09:54; Admin Dose 100 MG; Start 02/11/19 at 09:00 Apixaban (Eliquis) 2.5 mg BID PO Last administered on 02/16/19 09:54; Admin Dose 2.5 MG; Start 02/11/19 at 09:00 Non-Formulary Medication 1 DROP BOTH EYES Q4H PRN BOTH EYES DRY EYES Last administered on 02/15/19 19:07; Admin Dose 1 EA; Start 02/10/19 at 23:30 Latanoprost (Xalatan) 1 drop HS BOTH EYES Last administered on 02/15/19 21:20; Admin Dose 1 DROP; Start 02/11/19 at 21:00 Docusate Sodium (Colace Liquid Cup) 100 mg BID PO Last administered on 02/16/19 09:54; Admin Dose 100 MG; Start 02/11/19 at 21:00 Senna (Senokot) 1 tab HS PO Last administered on 02/15/19 21:20; Admin Dose 1 TAB; Start 02/11/19 at 21:00 Bisacodyl (Dulcolax Supp) 10 mg DAILY PRN [place] CONSTIPATION; Start 02/11/19 at 17:00 Magnesium Hydroxide (Milk Of Mag) 30 ml BID PRN PO CONSTIPATION; Start 02/11/19 at 17:00 Lactulose (Enulose) 20 gm DAILY PRN PO CONSTIPATION Last administered on 02/13/19 08:58; Admin Dose 20 GM; Start 02/11/19 at 17:00 Cyclosporine (Restasis) 1 drop BID BOTH EYES Last administered on 02/16/19 09:54; Admin Dose 1 DROP; Start 02/12/19 at 09:00 Ciprofloxacin (Cipro) 500 mg BID@06,18 PO Last administered on 02/16/19 06:31; Admin Dose 500 MG; Start 02/13/19 at 18:00; Stop 02/20/19 at 17:59 Calcium Carbonate (Tums) 500 mg Q4 PRN PO hyperacidity Last administered on 02/13/19 21:31; Admin Dose 500 MG; Start 02/13/19 at 15:00 Hydralazine HCl (Apresoline) 25 mg TID PO Last administered on 02/16/19 10:06; Admin Dose 25 MG; Start 02/13/19 at 15:00 Alprazolam (Xanax) 0.25 mg HS PRN PO SLEEP Last administered on 02/15/19 21:21; Admin Dose 0.25 MG; Start 02/13/19 at 17:00 Assessment/Plan Additional Assessment/Plan Rehab- PULMONARY DEBILITY Status post aspiration pneumonia. Continue treatment plan Dysphagia- speech CHF. CARDIAC PRECAUTIONS Acute on chronic kidney disease. Diabetes mellitus type 2. History of DVT. History of GI bleed. Atrial fibrillation with history of pacemaker. Urinary tract infection. ERIC FRIED MD Feb 16, 2019 13:16
[2019-02-16 14:00] VITALS: BP 109/53; PULSE 60; RESP 18
[2019-02-16 20:22] VITALS: BP 108/48; PULSE 60; RESP 19
[2019-02-16] MEDS: SENNA TAB PO SCH (22:04)
[2019-02-16] MEDS: LATANOPROST 0.005% 2.5 ML OPH BOTH EYES SCH (22:33)
[2019-02-17 02:00] VITALS: BP 110/52; PULSE 58; RESP 19
[2019-02-17] MEDS: ACCUCHECK AT 2AM (Patients on SS coverage) XX SCH (02:00)
[2019-02-17] MEDS: ALBUTEROL/IPRATROPIUM (NEB) 3 ML AMP HHN SCH ×6 (02:00→20:34)
[2019-02-17] MEDS: FERROUS SULFATE (EC) 325 MG TAB PO SCH ×2 (06:52→19:34)
[2019-02-17] MEDS: LANSOPRAZOLE 30 MG CAP PO SCH ×2 (06:52→18:09)
[2019-02-17] MEDS: LEVOTHYROXINE 75 MCG TAB PO SCH (06:52)
[2019-02-17] MEDS: CIPROFLOXACIN 500 MG TAB PO SCH ×2 (06:52→17:14)
[2019-02-17 07:00] VITALS: BP 123/63; PULSE 65; RESP 18
[2019-02-17] MEDS: Insulin NOVOLOG SS MILD Algorithm (SS with meals and bedtime) SC SCH ×4 (07:05→20:38)
[2019-02-17] MEDS: LUBIPROSTONE 24 MCG CAP PO SCH ×2 (08:17→17:14)
[2019-02-17] MEDS: MEGESTROL (40 MG/ML) 10ML CUP PO SCH (08:56)
[2019-02-17] MEDS: DOCUSATE SODIUM 10 MG/ML (10ML CUP) PO SCH ×2 (08:56→20:37)
[2019-02-17] MEDS: SOTALOL 80 MG TAB PO SCH ×2 (08:56→20:25)
[2019-02-17] MEDS: CYCLOSPORINE 0.05% OPH DROPERETTE BOTH EYES SCH ×2 (08:56→20:25)
[2019-02-17] MEDS: ALLOPURINOL 100 MG TAB PO SCH (08:57)
[2019-02-17] MEDS: APIXABAN 5 MG TABLET PO SCH ×2 (08:57→20:25)
[2019-02-17] MEDS: MECLIZINE 25 MG TAB PO SCH ×3 (08:57→20:26)
[2019-02-17] MEDS: LINAGLIPTIN 5 MG TABLET PO SCH (08:57)
[2019-02-17] MEDS: POLYETHYLENE GLYCOL 17 GM PACKET PO SCH (08:58)
[2019-02-17] MEDS ORDERED: BARIUM SULFATE 135 ML (E-Z HD) PO ONE (09:26)
[2019-02-17] MEDS: TIOTROPIUM 18 MCG CAPSULE INHA DEV INH SCH (10:23)
--- NOTE | 2019-02-17 11:36 | PN ---
Date/Time of Note Date/Time of Note DATE: 02/17/19 TIME: 11:36 Assessment/Plan VTE Prophylaxis Risk score (from Ns)>0 risk: 6 SCD applied (from Ns): No SCD contraindicated: other Pharmacological prophylaxis: apixaban Lines/Catheters IV [facility]from [facility] [place] Urinary Cath still in place: No Assessment/Plan Hospital Course SUBJECTIVE: No acute overnight episodes. OBJECTIVE: Vital signs-see below PHYSICAL EXAM: Constitutional: Frail looking, elderly female, not in acute distress. Psych: nl mood/affect, no complaints Head: atraumatic, normocephalic Eyes: nl conjunctiva, nl sclera ENMT: mucosa pink and moist, nl external ears & nose Neck: non-tender, supple Respiratory: clear bilaterally, normal air movement Cardiovascular: . nl pulses, regular rate and rhythm Gastrointestinal: non-tender, soft, bowel sounds active in all 4 quadrants. Musculoskeletal/extremities: nl extremities to inspection, motor strength equal bilaterally, no focal deficit. Normal pulses,no cyanosis, no edema. Neurological: Alert oriented 3,nl speech, nl strength Skin: nl turgor ASSESSMENT/PLAN:88-year-old female w/ multiple comorbidities including CHF, PAF, anemia, CKD, diabetes, hypothyroidism, transferred from [facility] after she was treated for acute respiratory failure secondary to aspiration pneumonia and heart failure for progressive debility. 1. Progressive debility -Continue rehab/PT 2. Status post respiratory failure secondary to aspiration pneumonia/CHF -Stable. Continue to monitor respiratory status. 3. Status post pneumonia -Stable. Treated.. 4. Chronic diastolic congestive heart failure. -Compensated. Continue current cardiac medications/beta-blockers/Lasix 5. Paroxysmal atrial fibrillation. -Stable -Continue Eliquis, Betapace 6.CKD -Stable renal function. 7.DMII -Stable glycemic trends. Continue Tradjenta -Accuchecks/ISS 8. Anemia of CKD. -HH stable. 9. Hypothyroidism -On Synthroid 10. 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 -On allopurinol. 11. UTI. -on Ciprox7 days. DVT prophylaxis: Santos Patient was seen in collaboration with . Results 24hrs Laboratory Tests Test 02/16/19 11:52 02/16/19 17:23 02/16/19 22:24 02/17/19 03:08 Bedside Glucose 235 H 150 192 144 Test 02/17/19 08:14 Bedside Glucose 131 Exam/Review of Systems Exam Vitals Vital Signs Date Temp Pulse Resp B/P (MAP) Pulse Ox O2 O2 Flow FiO2 Time Delivery Rate 02/17/19 98.2 65 18 123/63 100 Room Air 07:00 (83) 02/17/19 21 04:54 02/17/19 2.0 02:00 Intake and Output 02/16/19 02/16/19 02/17/19 1515:00 23:00 07:00 IntakeIntake Total 1200 ml 420 ml OutputOutput Total 200 ml 600 ml 100 ml BalanceBalance -200 ml 600 ml 320 ml Results Results 24hrs Laboratory Tests Test 02/16/19 11:52 02/16/19 17:23 02/16/19 22:24 02/17/19 03:08 Bedside Glucose 235 H 150 192 144 Test 02/17/19 08:14 Bedside Glucose 131 Medications Medication Current Medications Polyethylene Glycol (Miralax) 17 gm DAILY PO Last administered on 02/17/19 08:58; Admin Dose 17 GM; Start 02/11/19 at 09:00 Sotalol HCl (Betapace) 80 mg BID PO Last administered on 02/17/19 08:56; Admin Dose 80 MG; Start 02/11/19 at 09:00 Tiotropium [place] (Spiriva) 1 inh DAILY INH Last administered on 02/17/19 10:23; Admin Dose 1 INH; Start 02/11/19 at 09:00 Lansoprazole (Prevacid) 30 mg BID@0600,1800 PO Last administered on 02/17/19 06:52; Admin Dose 30 MG; Start 02/11/19 at 06:00 Linagliptin (Tradjenta) 5 mg DAILY PO Last administered on 02/17/19 08:57; Admin Dose 5 MG; Start 02/11/19 at 09:00 Lubiprostone (Amitiza) 24 mcg WITH BREAKFAST DINNE PO Last administered on 02/17/19 08:17; Admin Dose 24 MCG; Start 02/11/19 at 07:35 Meclizine HCl (Antivert) 25 mg TID PO Last administered on 02/17/19 08:57; Admin Dose 25 MG; Start 02/11/19 at 09:00 Megestrol Acetate (Megace Susp) 400 mg DAILY PO Last administered on 02/17/19at 08:56; Admin Dose 400 MG; Start 02/11/19 at 09:00 Miscellaneous Information 1 ea NOTE XX ; Start 02/10/19 at 22:30 Glucose (Glutose) 15 gm Q15M PRN PO DECREASED GLUCOSE; Start 02/10/19 at 22:30 Glucose (Glutose) 22.5 gm Q15M PRN PO DECREASED GLUCOSE; Start 02/10/19 at 22:30 Dextrose (D50w Syringe) 25 ml Q15M PRN IV DECREASED GLUCOSE; Start 02/10/19 at 22:30 Dextrose (D50w Syringe) 50 ml Q15M PRN IV DECREASED GLUCOSE; Start 02/10/19 at 22:30 Glucagon (Glucagen) 1 mg Q15M PRN IM DECREASED GLUCOSE; Start 02/10/19 at 22:30 Glucose (Glutose) 15 gm Q15M PRN BUCCAL DECREASED GLUCOSE; Start 02/10/19 at 22:30 Insulin Aspart (Novolog Insulin Pen) (Adult SC Insulin - Mild Algorithm)... AC MEALS AND BEDTIME SC Last administered on 02/16/19at 22:32; Admin Dose 1 UNIT; Start 02/11/19 at 07:05 Diagnostic Test (Pha) (Accu-Chek) 1 ea 02 XX Last administered on 02/17/19at 02:00; Admin Dose 1 EA; Start 02/11/19 at 02:00 Levothyroxine Sodium (Synthroid) 75 mcg BEFORE BREAKFAST PO Last administered on 02/17/19 06:52; Admin Dose 75 MCG; Start 02/11/19 at 07:00 Ferrous Sulfate (Ferrous Sulfate (Ec)) 325 mg BID@0600,1800 PO Last administered on 02/17/19at 06:52; Admin Dose 325 MG; Start 02/11/19 at 06:00; Stop 03/03/19 at 05:59 Acetaminophen (Tylenol Tab) 650 mg Q6H PRN PO MILD PAIN(1-3)OR ELEVATED TEMP Last administered on 02/13/19at 21:30; Admin Dose 650 MG; Start 02/10/19 at 23:00 Albuterol/ Ipratropium (Duoneb) 3 ml Q4H RESP THERAPY HHN Last administered on 02/17/19 04:54; Admin Dose 3 ML; Start 02/11/19 at 01:00 Albuterol/ Ipratropium (Duoneb) 3 ml Q2H RESP THERAPY PRN HHN SHORTNESS OF BREATH; Start 02/10/19 at 23:00 Allopurinol (Zyloprim) 100 mg DAILY PO Last administered on 02/17/19 08:57; Admin Dose 100 MG; Start 02/11/19 at 09:00 Apixaban (Eliquis) 2.5 mg BID PO Last administered on 02/17/19 08:57; Admin Dose 2.5 MG; Start 02/11/19 at 09:00 Non-Formulary Medication 1 DROP BOTH EYES Q4H PRN BOTH EYES DRY EYES Last administered on 02/15/19 19:07; Admin Dose 1 EA; Start 02/10/19 at 23:30 Latanoprost (Xalatan) 1 drop HS BOTH EYES Last administered on 02/16/19 22:33; Admin Dose 1 DROP; Start 02/11/19 at 21:00 Docusate Sodium (Colace Liquid Cup) 100 mg BID PO Last administered on 02/17/19 08:56; Admin Dose 100 MG; Start 02/11/19 at 21:00 Senna (Senokot) 1 tab HS PO Last administered on 02/16/19 22:04; Admin Dose 1 TAB; Start 02/11/19 at 21:00 Bisacodyl (Dulcolax Supp) 10 mg DAILY PRN [place] CONSTIPATION; Start 02/11/19 at 17:00 Magnesium Hydroxide (Milk Of Mag) 30 ml BID PRN PO CONSTIPATION Last administered on 02/17/19 06:52; Admin Dose 30 ML; Start 02/11/19 at 17:00 Lactulose (Enulose) 20 gm DAILY PRN PO CONSTIPATION Last administered on 02/13/19 08:58; Admin Dose 20 GM; Start 02/11/19 at 17:00 Cyclosporine (Restasis) 1 drop BID BOTH EYES Last administered on 02/17/19 08:56; Admin Dose 1 DROP; Start 02/12/19 at 09:00 Ciprofloxacin (Cipro) 500 mg BID@ PO Last administered on 02/17/19 06:52; Admin Dose 500 MG; Start 02/13/19 at 18:00; Stop 02/20/19 at 17:59 Calcium Carbonate (Tums) 500 mg Q4 PRN PO hyperacidity Last administered on 02/13/19at 21:31; Admin Dose 500 MG; Start 02/13/19 at 15:00 Hydralazine HCl (Apresoline) 25 mg TID PO Last administered on 02/17/19 08:57; Admin Dose 25 MG; Start 02/13/19 at 15:00 Alprazolam (Xanax) 0.25 mg HS PRN PO SLEEP Last administered on 02/15/19at 21:21; Admin Dose 0.25 MG; Start 02/13/19 at 17:00 ANDREA KHAN NP Feb 17, 2019 11:36
--- NOTE | 2019-02-17 13:14 | PN ---
Date/Time of Note Date/Time of Note DATE: 02/17/19 TIME: 13:14 Subjective Improving Objective Vital Signs Date Temp Pulse Resp B/P (MAP) Pulse Ox O2 O2 Flow FiO2 Time Delivery Rate 02/17/19 98.2 65 18 123/63 100 Room Air 07:00 (83) 02/17/19 21 04:54 02/17/19 2.0 02:00 Intake and Output 02/16/19 02/16/19 02/17/19 1515:00 23:00 07:00 IntakeIntake Total 1200 ml 420 ml OutputOutput Total 200 ml 600 ml 100 ml BalanceBalance -200 ml 600 ml 320 ml Exam pulm-cta min transfer Results/Medications Results 24 hrs Laboratory Tests Test 02/16/19 17:23 02/16/19 22:24 02/17/19 03:08 02/17/19 08:14 Bedside Glucose 150 192 144 131 Test 02/17/19 11:43 Bedside Glucose 230 H Medications Current Medications Polyethylene Glycol (Miralax) 17 gm DAILY PO Last administered on 02/17/19 08:58; Admin Dose 17 GM; Start 02/11/19 at 09:00 Sotalol HCl (Betapace) 80 mg BID PO Last administered on 02/17/19 08:56; Admin Dose 80 MG; Start 02/11/19 at 09:00 Tiotropium [place] (Spiriva) 1 inh DAILY INH Last administered on 02/17/19 10:23; Admin Dose 1 INH; Start 02/11/19 at 09:00 Lansoprazole (Prevacid) 30 mg BID@0600,1800 PO Last administered on 02/17/19 06:52; Admin Dose 30 MG; Start 02/11/19 at 06:00 Linagliptin (Tradjenta) 5 mg DAILY PO Last administered on 02/17/19 08:57; Admin Dose 5 MG; Start 02/11/19 at 09:00 Lubiprostone (Amitiza) 24 mcg WITH BREAKFAST DINNE PO Last administered on 02/17/19 08:17; Admin Dose 24 MCG; Start 02/11/19 at 07:35 Meclizine HCl (Antivert) 25 mg TID PO Last administered on 02/17/19 08:57; Admin Dose 25 MG; Start 02/11/19 at 09:00 Megestrol Acetate (Megace Susp) 400 mg DAILY PO Last administered on 02/17/19 08:56; Admin Dose 400 MG; Start 02/11/19 at 09:00 Miscellaneous Information 1 ea NOTE XX ; Start 02/10/19 at 22:30 Glucose (Glutose) 15 gm Q15M PRN PO DECREASED GLUCOSE; Start 02/10/19 at 22:30 Glucose (Glutose) 22.5 gm Q15M PRN PO DECREASED GLUCOSE; Start 02/10/19 at 22:30 Dextrose (D50w Syringe) 25 ml Q15M PRN IV DECREASED GLUCOSE; Start 02/10/19 at 22:30 Dextrose (D50w Syringe) 50 ml Q15M PRN IV DECREASED GLUCOSE; Start 02/10/19 at 22:30 Glucagon (Glucagen) 1 mg Q15M PRN IM DECREASED GLUCOSE; Start 02/10/19 at 22:30 Glucose (Glutose) 15 gm Q15M PRN BUCCAL DECREASED GLUCOSE; Start 02/10/19 at 22:30 Insulin Aspart (Novolog Insulin Pen) (Adult SC Insulin - Mild Algorithm)... AC MEALS AND BEDTIME SC Last administered on 02/17/19 11:59; Admin Dose 3 UNIT; Start 02/11/19 at 07:05 Diagnostic Test (Pha) (Accu-Chek) 1 ea 02 XX Last administered on 02/17/19at 0 2:00; Admin Dose 1 EA; Start 02/11/19 at 02:00 Levothyroxine Sodium (Synthroid) 75 mcg BEFORE BREAKFAST PO Last administered on 02/17/19 06:52; Admin Dose 75 MCG; Start 02/11/19 at 07:00 Ferrous Sulfate (Ferrous Sulfate (Ec)) 325 mg BID@0600,1800 PO Last administered on 02/17/19 06:52; Admin Dose 325 MG; Start 02/11/19 at 06:00; Stop 03/03/19 at 05:59 Acetaminophen (Tylenol Tab) 650 mg Q6H PRN PO MILD PAIN(1-3)OR ELEVATED TEMP Last administered on 02/13/19 21:30; Admin Dose 650 MG; Start 02/10/19 at 23:00 Albuterol/ Ipratropium (Duoneb) 3 ml Q4H RESP THERAPY HHN Last administered on 02/17/19 04:54; Admin Dose 3 ML; Start 02/11/19 at 01:00 Albuterol/ Ipratropium (Duoneb) 3 ml Q2H RESP THERAPY PRN HHN SHORTNESS OF BREATH; Start 02/10/19 at 23:00 Allopurinol (Zyloprim) 100 mg DAILY PO Last administered on 02/17/19 08:57; Admin Dose 100 MG; Start 02/11/19 at 09:00 Apixaban (Eliquis) 2.5 mg BID PO Last administered on 02/17/19 08:57; Admin Dose 2.5 MG; Start 02/11/19 at 09:00 Non-Formulary Medication 1 DROP BOTH EYES Q4H PRN BOTH EYES DRY EYES Last administered on 02/15/19 19:07; Admin Dose 1 EA; Start 02/10/19 at 23:30 Latanoprost (Xalatan) 1 drop HS BOTH EYES Last administered on 02/16/19 22:33; Admin Dose 1 DROP; Start 02/11/19 at 21:00 Docusate Sodium (Colace Liquid Cup) 100 mg BID PO Last administered on 02/17/19 08:56; Admin Dose 100 MG; Start 02/11/19 at 21:00 Senna (Senokot) 1 tab HS PO Last administered on 02/16/19 22:04; Admin Dose 1 TAB; Start 02/11/19 at 21:00 Bisacodyl (Dulcolax Supp) 10 mg DAILY PRN [place] CONSTIPATION; Start 02/11/19 at 17:00 Magnesium Hydroxide (Milk Of Mag) 30 ml BID PRN PO CONSTIPATION Last administered on 02/17/19 06:52; Admin Dose 30 ML; Start 02/11/19 at 17:00 Lactulose (Enulose) 20 gm DAILY PRN PO CONSTIPATION Last administered on 02/13/19 08:58; Admin Dose 20 GM; Start 02/11/19 at 17:00 Cyclosporine (Restasis) 1 drop BID BOTH EYES Last administered on 02/17/19 08:56; Admin Dose 1 DROP; Start 02/12/19 at 09:00 Ciprofloxacin (Cipro) 500 mg BID@ PO Last administered on 02/17/19 06:52; Admin Dose 500 MG; Start 02/13/19 at 18:00; Stop 02/20/19 at 17:59 Calcium Carbonate (Tums) 500 mg Q4 PRN PO hyperacidity Last administered on 02/13/19 21:31; Admin Dose 500 MG; Start 02/13/19 at 15:00 Hydralazine HCl (Apresoline) 25 mg TID PO Last administered on 02/17/19 08:57; Admin Dose 25 MG; Start 02/13/19 at 15:00 Alprazolam (Xanax) 0.25 mg HS PRN PO SLEEP Last administered on 02/15/19 21:21; Admin Dose 0.25 MG; Start 02/13/19 at 17:00 Assessment/Plan Additional Assessment/Plan Rehab- PULMONARY DEBILITY Status post aspiration pneumonia. Continue rehab, progressing Dysphagia- speech CHF. CARDIAC PRECAUTIONS Acute on chronic kidney disease. Diabetes mellitus type 2. History of DVT. History of GI bleed. Atrial fibrillation with history of pacemaker. Urinary tract infection. ERIC FRIED MD Feb 17, 2019 13:14
--- NOTE | 2019-02-17 13:54 | CONS ---
Assessment/Plan Assessment/Plan Hospital Course (Demo Recall) IMP: 1.AF-Paced when last on tele. on eliquis 2.PPM-no signs of dysfunction at this time 3.HTN-labile 4.DM 5.sob-likley PNA with possible component of CHF-diastolic EF 60% by echo this admit. Now improved 6. Hypothyroid 7. PNA by chest CT 8. Renal failure-slight worsening Recc: -Now in rehab -serial ecg's -Continue sotalol as tolerated only and follow QTc on sotalol -hydralazine now resumed -Continue abx's and f/u cx data -Follow volume status clsoely with lasix 20 po daily -Continue bronchodilators -PT Consultation Date/Type/Reason Admit Date/Time Feb 10, 2019 at 18:51 Initial Consult Date 02/11/19 Type of Consult Cardiology Reason for Consultation PPM Requesting Provider: HERSON DAVIS MD Date/Time of Note DATE: 02/17/19 TIME: 13:52 Exam/Review of Systems Vital Signs Vitals Vital Signs Date Temp Pulse Resp B/P (MAP) Pulse Ox O2 O2 Flow FiO2 Time Delivery Rate 02/17/19 98.2 65 18 123/63 100 Room Air 07:00 (83) 02/17/19 21 04:54 02/17/19 2.0 02:00 Intake and Output 02/16/19 02/16/19 02/17/19 1414:59 22:59 06:59 IntakeIntake Total 1200 ml 420 ml OutputOutput Total 200 ml 600 ml 100 ml BalanceBalance -200 ml 600 ml 320 ml Exam Exam Review of Systems: CONSTITUTIONAL: No fevers, chills. PULMONARY: No sob CARDIOVASCULAR: No chest pain/palpitations GASTROINTESTINAL: No nausea/vomiting. GENITOURINARY: No hematuria/dysuria. MUSCULOSKELETAL: No myagias/arthalgias. PSYCHIATRIC: The patient denies depression. NEUROLOGIC: No weakness Constitutional: alert Psych: no complaints Head: normocephalic ENMT: mucosa pink and moist Neck: supple, jvd (9 cm water) Respiratory: diminished breath sounds Cardiovascular: regular rate and rhythm Gastrointestinal: soft, non-tender Musculoskeletal: muscle tone Extremities: edema (none) Neurological: other (no focal deficits) Labs Results 24hrs Laboratory Tests Test 02/16/19 17:23 02/16/19 22:24 02/17/19 03:08 02/17/19 08:14 Bedside Glucose 150 192 144 131 Test 02/17/19 11:43 Bedside Glucose 230 H Medications Medications Current Medications Polyethylene Glycol (Miralax) 17 gm DAILY PO Last administered on 02/17/19 08:58; Admin Dose 17 GM; Start 02/11/19 at 09:00 Sotalol HCl (Betapace) 80 mg BID PO Last administered on 02/17/19 08:56; Admin Dose 80 MG; Start 02/11/19 at 09:00 Tiotropium [place] (Spiriva) 1 inh DAILY INH Last administered on 02/17/19 10:23; Admin Dose 1 INH; Start 02/11/19 at 09:00 Lansoprazole (Prevacid) 30 mg BID@0600,1800 PO Last administered on 02/17/19 06:52; Admin Dose 30 MG; Start 02/11/19 at 06:00 Linagliptin (Tradjenta) 5 mg DAILY PO Last administered on 02/17/19 08:57; Admin Dose 5 MG; Start 02/11/19 at 09:00 Lubiprostone (Amitiza) 24 mcg WITH BREAKFAST DINNE PO Last administered on 02/17/19 08:17; Admin Dose 24 MCG; Start 02/11/19 at 07:35 Meclizine HCl (Antivert) 25 mg TID PO Last administered on 02/17/19 13:19; Admin Dose 25 MG; Start 02/11/19 at 09:00 Megestrol Acetate (Megace Susp) 400 mg DAILY PO Last administered on 02/17/19 08:56; Admin Dose 400 MG; Start 02/11/19 at 09:00 Miscellaneous Information 1 ea NOTE XX ; Start 02/10/19 at 22:30 Glucose (Glutose) 15 gm Q15M PRN PO DECREASED GLUCOSE; Start 02/10/19 at 22:30 Glucose (Glutose) 22.5 gm Q15M PRN PO DECREASED GLUCOSE; Start 02/10/19 at 22:30 Dextrose (D50w Syringe) 25 ml Q15M PRN IV DECREASED GLUCOSE; Start 02/10/19 at 22:30 Dextrose (D50w Syringe) 50 ml Q15M PRN IV DECREASED GLUCOSE; Start 02/10/19 at 22:30 Glucagon (Glucagen) 1 mg Q15M PRN IM DECREASED GLUCOSE; Start 02/10/19 at 22:30 Glucose (Glutose) 15 gm Q15M PRN BUCCAL DECREASED GLUCOSE; Start 02/10/19 at 22:30 Insulin Aspart (Novolog Insulin Pen) (Adult SC Insulin - Mild Algorithm)... AC MEALS AND BEDTIME SC Last administered on 02/17/19 11:59; Admin Dose 3 UNIT; Start 02/11/19 at 07:05 Diagnostic Test (Pha) (Accu-Chek) 1 ea 02 XX Last administered on 02/17/19 02:00; Admin Dose 1 EA; Start 02/11/19 at 02:00 Levothyroxine Sodium (Synthroid) 75 mcg BEFORE BREAKFAST PO Last administered on 02/17/19 06:52; Admin Dose 75 MCG; Start 02/11/19 at 07:00 Ferrous Sulfate (Ferrous Sulfate (Ec)) 325 mg BID@0600,1800 PO Last administered on 02/17/19 06:52; Admin Dose 325 MG; Start 02/11/19 at 06:00; Stop 03/03/19 at 05:59 Acetaminophen (Tylenol Tab) 650 mg Q6H PRN PO MILD PAIN(1-3)OR ELEVATED TEMP Last administered on 02/13/19 21:30; Admin Dose 650 MG; Start 02/10/19 at 23:00 Albuterol/ Ipratropium (Duoneb) 3 ml Q4H RESP THERAPY HHN Last administered on 02/17/19 13:18; Admin Dose 3 ML; Start 02/11/19 at 01:00 Albuterol/ Ipratropium (Duoneb) 3 ml Q2H RESP THERAPY PRN HHN SHORTNESS OF BREATH; Start 02/10/19 at 23:00 Allopurinol (Zyloprim) 100 mg DAILY PO Last administered on 02/17/19 08:57; Admin Dose 100 MG; Start 02/11/19 at 09:00 Apixaban (Eliquis) 2.5 mg BID PO Last administered on 02/17/19 08:57; Admin Dose 2.5 MG; Start 02/11/19 at 09:00 Non-Formulary Medication 1 DROP BOTH EYES Q4H PRN BOTH EYES DRY EYES Last administered on 02/15/19 19:07; Admin Dose 1 EA; Start 02/10/19 at 23:30 Latanoprost (Xalatan) 1 drop HS BOTH EYES Last administered on 02/16/19 22:33; Admin Dose 1 DROP; Start 02/11/19 at 21:00 Docusate Sodium (Colace Liquid Cup) 100 mg BID PO Last administered on 02/17/19 08:56; Admin Dose 100 MG; Start 02/11/19 at 21:00 Senna (Senokot) 1 tab HS PO Last administered on 02/16/19 22:04; Admin Dose 1 TAB; Start 02/11/19 at 21:00 Bisacodyl (Dulcolax Supp) 10 mg DAILY PRN [place] CONSTIPATION; Start 02/11/19 at 17:00 Magnesium Hydroxide (Milk Of Mag) 30 ml BID PRN PO CONSTIPATION Last administered on 02/17/19 06:52; Admin Dose 30 ML; Start 02/11/19 at 17:00 Lactulose (Enulose) 20 gm DAILY PRN PO CONSTIPATION Last administered on 02/13/19 08:58; Admin Dose 20 GM; Start 02/11/19 at 17:00 Cyclosporine (Restasis) 1 drop BID BOTH EYES Last administered on 02/17/19 08:56; Admin Dose 1 DROP; Start 02/12/19 at 09:00 Ciprofloxacin (Cipro) 500 mg BID@06,18 PO Last administered on 02/17/19 06:52; Admin Dose 500 MG; Start 02/13/19 at 18:00; Stop 02/20/19 at 17:59 Calcium Carbonate (Tums) 500 mg Q4 PRN PO hyperacidity Last administered on 02/13/19 21:31; Admin Dose 500 MG; Start 02/13/19 at 15:00 Hydralazine HCl (Apresoline) 25 mg TID PO Last administered on 02/17/19 13:25; Admin Dose 25 MG; Start 02/13/19 at 15:00 Alprazolam (Xanax) 0.25 mg HS PRN PO SLEEP Last administered on 02/15/19 21:21; Admin Dose 0.25 MG; Start 02/13/19 at 17:00 SHAWANDA LUGO 20, 2019 13:54
[2019-02-17] MEDS ORDERED: FUROSEMIDE 20 MG INJ IV ONE (17:00)
--- NOTE | 2019-02-17 19:55 | CONS ---
DATE OF ADMISSION: 02/10/2019 DATE OF CONSULTATION: 02/17/2019 TYPE OF CONSULTATION: Psychological REFERRING PHYSICIAN: Eric Canada MD CONSULTING PSYCHOLOGIST: Lenore Simmons, PhD REASON FOR CONSULTATION: This consultation was requested by Dr. Tara Canada in order to evaluate t he cognitive and emotional functioning of this patient related to her present medical condition. HISTORY OF PRESENT ILLNESS: The patient is an 88-year-old female. The patient has a history of mult iple medical problems. The patient was admitted with increased shortness of breath, cough and weakne ss. The patient was seen to have pneumonia and exacerbation of congestive heart failure. The patien t was cleared medically and then sent to the acute rehabilitation unit for acute multidisciplinary re habilitation. The patient is motivated to get better and does want to return home and to her previou s level of functioning. FAMILY/SOCIAL HISTORY: The patient lives in a house with her son. The patient's daughter was presen t during the consultation with the patient's permission. The daughter helped her with some of the qu estions. Evaluation was done in both Persian and Wallisian. MEDICATION: The patient is on Xanax 0.25 mg at bedtime p.r.n. SUBSTANCE ABUSE: The patient denies any use of alcohol or drugs. The patient reports that she does not smoke. MENTAL STATUS EXAMINATION: APPEARANCE: The patient was seen in her wheelchair. She appears to be of average height and weight. The patient is right-handed. BEHAVIOR: The patient was cooperative during the consultation. The patient did attempt to answer al l questions presented to her by the interviewer. MOOD AND AFFECT: The patient's mood appears to be depressed. Affect does appear to be slightly anxi ous. The patient, however, does say that she gets very depressed and that she cries a lot. The maynor ent is frustrated and angry. She wants to go home. PERCEPTION: The patient reports no hallucinations or delusions. The patient was alert to person but not exactly to place, situation and time. MEMORY AND COGNITION: The patient's memory and cognition appear to be impaired. She was unable to c ome up with the hospital name. She could not say what month it was or what year it was. The patient could not say who the student life vice president is. Overall, the patient's cognition appears t o be impaired at the present time. She could not do any serial 7 subtractions from 100. INTELLIGENCE: Intelligence would appear to fall in the average range when she is functioning adequat cynthia. INSIGHT: Poor. JUDGMENT: Poor. THOUGHT CONTENT: The patient is concerned about her present medical condition. The patient does wan t to return home as soon as possible. She does not want to be in the hospital. DISCUSSION: The patient may be able to benefit from some cognitive/behavioral psychotherapy while sh caro is on the unit. The psychotherapy would focus on her cognitive dysfunction as well as her mood. DIAGNOSTIC IMPRESSION: 1. 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 2. F06.8, cognitive disorder, not otherwise specified. Thank you very much, Dr. Tara Canada, for referring this individual. Please do not hesitate to syd roberts if you have additional questions. Dictated By: LENORE SIMMONS PHD RK/JUANA Conf#: [id number] DID#: [id number] CC: ERIC CANADA MD;*End*
[2019-02-17 20:05] VITALS: BP 127/58; PULSE 61; RESP 18
[2019-02-17] MEDS: ALPRAZOLAM 0.25 MG TAB PO PRN (20:24)
[2019-02-17] MEDS: SENNA TAB PO SCH (20:25)
[2019-02-17] MEDS: ACETAMINOPHEN 325 MG TAB PO PRN (20:25)
[2019-02-17] MEDS: LATANOPROST 0.005% 2.5 ML OPH BOTH EYES SCH (20:35)
[2019-02-18] MEDS: ALBUTEROL/IPRATROPIUM (NEB) 3 ML AMP HHN SCH ×6 (01:31→21:46)
[2019-02-18 02:00] VITALS: BP 118/56; PULSE 63; RESP 18
[2019-02-18] MEDS: ACCUCHECK AT 2AM (Patients on SS coverage) XX SCH (02:00)
[2019-02-18] MEDS: CIPROFLOXACIN 500 MG TAB PO SCH ×2 (06:46→17:33)
[2019-02-18] MEDS: FERROUS SULFATE (EC) 325 MG TAB PO SCH ×2 (06:46→18:36)
[2019-02-18] MEDS: LEVOTHYROXINE 75 MCG TAB PO SCH (06:46)
[2019-02-18] MEDS: LANSOPRAZOLE 30 MG CAP PO SCH ×2 (06:46→17:34)
[2019-02-18] MEDS: LUBIPROSTONE 24 MCG CAP PO SCH ×2 (07:39→17:34)
[2019-02-18] MEDS: Insulin NOVOLOG SS MILD Algorithm (SS with meals and bedtime) SC SCH ×4 (07:52→21:00)
[2019-02-18 08:00] VITALS: BP 116/55; PULSE 67; RESP 19
[2019-02-18] MEDS: POLYETHYLENE GLYCOL 17 GM PACKET PO SCH (09:00)
[2019-02-18] MEDS: DOCUSATE SODIUM 10 MG/ML (10ML CUP) PO SCH ×2 (09:00→21:23)
[2019-02-18] MEDS ORDERED: FUROSEMIDE 20 MG INJ IV SCH (09:00)
[2019-02-18] MEDS: LINAGLIPTIN 5 MG TABLET PO SCH (09:46)
[2019-02-18] MEDS: MECLIZINE 25 MG TAB PO SCH ×3 (09:46→21:18)
[2019-02-18] MEDS: CYCLOSPORINE 0.05% OPH DROPERETTE BOTH EYES SCH ×2 (09:46→21:19)
[2019-02-18] MEDS: MEGESTROL (40 MG/ML) 10ML CUP PO SCH (09:46)
[2019-02-18] MEDS: TIOTROPIUM 18 MCG CAPSULE INHA DEV INH SCH (09:46)
[2019-02-18] MEDS: APIXABAN 5 MG TABLET PO SCH ×2 (09:47→21:18)
[2019-02-18] MEDS: FUROSEMIDE 20 MG TAB PO SCH (09:47)
[2019-02-18] MEDS: SOTALOL 80 MG TAB PO SCH ×2 (09:47→21:32)
[2019-02-18] MEDS: ALLOPURINOL 100 MG TAB PO SCH (09:48)
--- NOTE | 2019-02-18 12:37 | PN ---
Date/Time of Note Date/Time of Note DATE: 02/18/19 TIME: 12:36 Assessment/Plan VTE Prophylaxis Risk score (from Ns)>0 risk: 6 SCD applied (from Ns): No SCD contraindicated: other Pharmacological prophylaxis: apixaban Lines/Catheters IV Catheter Type (from [facility]): [place] Urinary Cath still in place: No Assessment/Plan Hospital Course SUBJECTIVE: No acute overnight episodes. OBJECTIVE: Vital signs-see below PHYSICAL EXAM: Constitutional: Frail looking, elderly female, not in acute distress. Psych: nl mood/affect, no complaints Head: atraumatic, normocephalic Eyes: nl conjunctiva, nl sclera ENMT: mucosa pink and moist, nl external ears & nose Neck: non-tender, supple Respiratory: clear bilaterally, normal air movement Cardiovascular: . nl pulses, regular rate and rhythm Gastrointestinal: non-tender, soft, bowel sounds active in all 4 quadrants. Musculoskeletal/extremities: nl extremities to inspection, motor strength equal bilaterally, no focal deficit. Normal pulses,no cyanosis, no edema. Neurological: Alert oriented 3,nl speech, nl strength Skin: nl turgor ASSESSMENT/PLAN:88-year-old female w/ multiple comorbidities including CHF, PAF, anemia, CKD, diabetes, hypothyroidism, transferred from [facility] after she was treated for acute respiratory failure secondary to aspiration pneumonia and heart failure for progressive debility. 1. Progressive debility -Continue rehab/PT 2. Status post respiratory failure secondary to aspiration pneumonia/CHF -Stable. Continue to monitor respiratory status. 3. Status post pneumonia -Stable. Treated.. 4. Chronic diastolic congestive heart failure. -Compensated. Continue current cardiac medications/beta-blockers/Lasix 5. Paroxysmal atrial fibrillation. -Stable -Continue Eliquis, Betapace 6.CKD -Stable renal function. 7.DMII -Stable glycemic trends. Continue Tradjenta -Accuchecks/ISS 8. Anemia of CKD. -HH stable. 9. Hypothyroidism -On Synthroid 10. 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 -On allopurinol. 11. UTI. -on Ciprox7 days. DVT prophylaxis: Santos Patient was seen in collaboration with . Result Diagram: 02/18/19 0642 Results 24hrs Laboratory Tests Test 02/17/19 16:53 02/17/19 17:30 02/17/19 20:33 02/18/19 06:42 Albumin 2.8 L Bedside Glucose 214 179 Sodium Level 140 Potassium Level 3.8 Chloride Level 103 Carbon Dioxide Level 29 Anion Gap 8 Blood Urea Nitrogen 23 H Creatinine 1.34 H Est Glomerular Filtrat Rate mL/min Glucose Level 139 Calcium Level 8.6 Test 02/18/19 07:38 02/18/19 11:50 Bedside Glucose 142 224 H Exam/Review of Systems Exam Vitals Vital Signs Date Temp Pulse Resp B/P (MAP) Pulse Ox O2 O2 Flow FiO2 Time Delivery Rate 02/18/19 98.0 67 19 116/55 96 Room Air 08:00 (75) 02/18/19 2.0 05:13 02/17/19 20:34 Intake and Output 02/17/19 02/17/19 02/18/19 1515:00 23:00 07:00 IntakeIntake Total 400 ml 900 ml 940 ml OutputOutput Total 400 ml BalanceBalance 400 ml 500 ml 940 ml Results Results 24hrs Laboratory Tests Test 02/17/19 16:53 02/17/19 17:30 02/17/19 20:33 02/18/19 06:42 Albumin 2.8 L Bedside Glucose 214 179 Sodium Level 140 Potassium Level 3.8 Chloride Level 103 Carbon Dioxide Level 29 Anion Gap 8 Blood Urea Nitrogen 23 H Creatinine 1.34 H Est Glomerular Filtrat Rate mL/min Glucose Level 139 Calcium Level 8.6 Test 02/18/19 07:38 02/18/19 11:50 Bedside Glucose 142 224 H Medications Medication Current Medications Polyethylene Glycol (Miralax) 17 gm DAILY PO Last administered on 02/17/19at 08 :58; Admin Dose 17 GM; Start 02/11/19 at 09:00 Sotalol HCl (Betapace) 80 mg BID PO Last administered on 02/18/19 09:47; Admin Dose 80 MG; Start 02/11/19 at 09:00 Tiotropium [place] (Spiriva) 1 inh DAILY INH Last administered on 02/18/19 09:46; Admin Dose 1 INH; Start 02/11/19 at 09:00 Lansoprazole (Prevacid) 30 mg BID@0600,1800 PO Last administered on 02/18/19 06:46; Admin Dose 30 MG; Start 02/11/19 at 06:00 Linagliptin (Tradjenta) 5 mg DAILY PO Last administered on 02/18/19 09:46; Admin Dose 5 MG; Start 02/11/19 at 09:00 Lubiprostone (Amitiza) 24 mcg WITH BREAKFAST DINNE PO Last administered on 02/18/19 07:39; Admin Dose 24 MCG; Start 02/11/19 at 07:35 Meclizine HCl (Antivert) 25 mg TID PO Last administered on 02/18/19 09:46; Admin Dose 25 MG; Start 02/11/19 at 09:00 Megestrol Acetate (Megace Susp) 400 mg DAILY PO Last administered on 02/18/19 09:46; Admin Dose 400 MG; Start 02/11/19 at 09:00 Miscellaneous Information 1 ea NOTE XX ; Start 02/10/19 at 22:30 Glucose (Glutose) 15 gm Q15M PRN PO DECREASED GLUCOSE; Start 02/10/19 at 22:30 Glucose (Glutose) 22.5 gm Q15M PRN PO DECREASED GLUCOSE; Start 02/10/19 at 22:30 Dextrose (D50w Syringe) 25 ml Q15M PRN IV DECREASED GLUCOSE; Start 02/10/19 at 22:30 Dextrose (D50w Syringe) 50 ml Q15M PRN IV DECREASED GLUCOSE; Start 02/10/19 at 22:30 Glucagon (Glucagen) 1 mg Q15M PRN IM DECREASED GLUCOSE; Start 02/10/19 at 22:30 Glucose (Glutose) 15 gm Q15M PRN BUCCAL DECREASED GLUCOSE; Start 02/10/19 at 22:30 Insulin Aspart (Novolog Insulin Pen) (Adult SC Insulin - Mild Algorithm)... AC MEALS AND BEDTIME SC Last administered on 02/18/19at 11:53; Admin Dose 3 UNIT; Start 02/11/19 at 07:05 Diagnostic Test (Pha) (Accu-Chek) 1 ea 02 XX Last administered on 02/18/19at 02:00; Admin Dose 1 EA; Start 02/11/19 at 02:00 Levothyroxine Sodium (Synthroid) 75 mcg BEFORE BREAKFAST PO Last administered on 02/18/19 06:46; Admin Dose 75 MCG; Start 02/11/19 at 07:00 Ferrous Sulfate (Ferrous Sulfate (Ec)) 325 mg BID@0600,1800 PO Last administered on 02/18/19 06:46; Admin Dose 325 MG; Start 02/11/19 at 06:00; Stop 03/03/19 at 05:59 Acetaminophen (Tylenol Tab) 650 mg Q6H PRN PO MILD PAIN(1-3)OR ELEVATED TEMP Last administered on 02/17/19 20:25; Admin Dose 650 MG; Start 02/10/19 at 23:00 Albuterol/ Ipratropium (Duoneb) 3 ml Q4H RESP THERAPY HHN Last administered on 02/18/19 05:13; Admin Dose 3 ML; Start 02/11/19 at 01:00 Albuterol/ Ipratropium (Duoneb) 3 ml Q2H RESP THERAPY PRN HHN SHORTNESS OF BREATH; Start 02/10/19 at 23:00 Allopurinol (Zyloprim) 100 mg DAILY PO Last administered on 02/18/19 09:48; Admin Dose 100 MG; Start 02/11/19 at 09:00 Apixaban (Eliquis) 2.5 mg BID PO Last administered on 02/18/19 09:47; Admin Dose 2.5 MG; Start 02/11/19 at 09:00 Non-Formulary Medication 1 DROP BOTH EYES Q4H PRN BOTH EYES DRY EYES Last administered on 02/15/19 19:07; Admin Dose 1 EA; Start 02/10/19 at 23:30 Latanoprost (Xalatan) 1 drop HS BOTH EYES Last administered on 02/17/19 20:35; Admin Dose 1 DROP; Start 02/11/19 at 21:00 Docusate Sodium (Colace Liquid Cup) 100 mg BID PO Last administered on 02/17/19 t 20:37; Admin Dose 100 MG; Start 02/11/19 at 21:00 Senna (Senokot) 1 tab HS PO Last administered on 02/17/19 20:25; Admin Dose 1 TAB; Start 02/11/19 at 21:00 Bisacodyl (Dulcolax Supp) 10 mg DAILY PRN [place] CONSTIPATION; Start 02/11/19 at 17:00 Magnesium Hydroxide (Milk Of Mag) 30 ml BID PRN PO CONSTIPATION Last administered on 02/17/19 06:52; Admin Dose 30 ML; Start 02/11/19 at 17:00 Lactulose (Enulose) 20 gm DAILY PRN PO CONSTIPATION Last administered on 02/13/19 08:58; Admin Dose 20 GM; Start 02/11/19 at 17:00 Cyclosporine (Restasis) 1 drop BID BOTH EYES Last administered on 02/18/19 09:46; Admin Dose 1 DROP; Start 02/12/19 at 09:00 Ciprofloxacin (Cipro) 500 mg BID@18 PO Last administered on 02/18/19 06:46; Admin Dose 500 MG; Start 02/13/19 at 18:00; Stop 02/20/19 at 17:59 Calcium Carbonate (Tums) 500 mg Q4 PRN PO hyperacidity Last administered on 02/13/19 21:31; Admin Dose 500 MG; Start 02/13/19 at 15:00 Hydralazine HCl (Apresoline) 25 mg TID PO Last administered on 02/18/19 09:48; Admin Dose 25 MG; Start 02/13/19 at 15:00 Alprazolam (Xanax) 0.25 mg HS PRN PO SLEEP Last administered on 02/17/19 20:24; Admin Dose 0.25 MG; Start 02/13/19 at 17:00 Furosemide (Lasix) 20 mg DAILY PO Last administered on 02/18/19 09:47; Admin Dose 20 MG; Start 02/18/19 at 09:00 ANDREA KHAN NP Feb 18, 2019 12:37
--- NOTE | 2019-02-18 12:55 | PN ---
Date/Time of Note Date/Time of Note DATE: 02/18/19 TIME: 12:55 Subjective No new complaints Objective Vital Signs Date Temp Pulse Resp B/P (MAP) Pulse Ox O2 O2 Flow FiO2 Time Delivery Rate 02/18/19 Nasal 2.0 08:00 Cannula 02/18/19 98.0 67 19 116/55 96 08:00 (75) 02/17/19 21 20:34 Intake and Output 02/17/19 02/17/19 02/18/19 1515:00 23:00 07:00 IntakeIntake Total 400 ml 900 ml 940 ml OutputOutput Total 400 ml BalanceBalance 400 ml 500 ml 940 ml Exam abd-soft cga ambulation 75 feet Results/Medications Result Diagram: 02/18/19 0642 Results 24 hrs Laboratory Tests Test 02/17/19 16:53 02/17/19 17:30 02/17/19 20:33 02/18/19 06:42 Albumin 2.8 L Bedside Glucose 214 179 Sodium Level 140 Potassium Level 3.8 Chloride Level 103 Carbon Dioxide Level 29 Anion Gap 8 Blood Urea Nitrogen 23 H Creatinine 1.34 H Est Glomerular Filtrat Rate mL/min Glucose Level 139 Calcium Level 8.6 Test 02/18/19 07:38 02/18/19 11:50 Bedside Glucose 142 224 H Medications Current Medications Polyethylene Glycol (Miralax) 17 gm DAILY PO Last administered on 02/17/19 08:58; Admin Dose 17 GM; Start 02/11/19 at 09:00 Sotalol HCl (Betapace) 80 mg BID PO Last administered on 02/18/19 09:47; Admin Dose 80 MG; Start 02/11/19 at 09:00 Tiotropium [place] (Spiriva) 1 inh DAILY INH Last administered on 02/18/19 09:46; Admin Dose 1 INH; Start 02/11/19 at 09:00 Lansoprazole (Prevacid) 30 mg BID@0600,1800 PO Last administered on 02/18/19 06:46; Admin Dose 30 MG; Start 02/11/19 at 06:00 Linagliptin (Tradjenta) 5 mg DAILY PO Last administered on 02/18/19 09:46; Admin Dose 5 MG; Start 02/11/19 at 09:00 Lubiprostone (Amitiza) 24 mcg WITH BREAKFAST DINNE PO Last administered on 02/18/19 07:39; Admin Dose 24 MCG; Start 02/11/19 at 07:35 Meclizine HCl (Antivert) 25 mg TID PO Last administered on 02/18/19 09:46; Admin Dose 25 MG; Start 02/11/19 at 09:00 Megestrol Acetate (Megace Susp) 400 mg DAILY PO Last administered on 02/18/19 09:46; Admin Dose 400 MG; Start 02/11/19 at 09:00 Miscellaneous Information 1 ea NOTE XX ; Start 02/10/19 at 22:30 Glucose (Glutose) 15 gm Q15M PRN PO DECREASED GLUCOSE; Start 02/10/19 at 22:30 Glucose (Glutose) 22.5 gm Q15M PRN PO DECREASED GLUCOSE; Start 02/10/19 at 22:30 Dextrose (D50w Syringe) 25 ml Q15M PRN IV DECREASED GLUCOSE; Start 02/10/19 at 22:30 Dextrose (D50w Syringe) 50 ml Q15M PRN IV DECREASED GLUCOSE; Start 02/10/19 at 22:30 Glucagon (Glucagen) 1 mg Q15M PRN IM DECREASED GLUCOSE; Start 02/10/19 at 22:30 Glucose (Glutose) 15 gm Q15M PRN BUCCAL DECREASED GLUCOSE; Start 02/10/19 at 22:30 Insulin Aspart (Novolog Insulin Pen) (Adult SC Insulin - Mild Algorithm)... AC MEALS AND BEDTIME SC Last administered on 02/18/19at 11:53; Admin Dose 3 UNIT; Start 02/11/19 at 07:05 Diagnostic Test (Pha) (Accu-Chek) 1 ea 02 XX Last administered on 02/18/19at 02:00; Admin Dose 1 EA; Start 02/11/19 at 02:00 Levothyroxine Sodium (Synthroid) 75 mcg BEFORE BREAKFAST PO Last administered on 02/18/19 06:46; Admin Dose 75 MCG; Start 02/11/19 at 07:00 Ferrous Sulfate (Ferrous Sulfate (Ec)) 325 mg BID@0600,1800 PO Last administered on 02/18/19 06:46; Admin Dose 325 MG; Start 02/11/19 at 06:00; Stop 03/03/19 at 05:59 Acetaminophen (Tylenol Tab) 650 mg Q6H PRN PO MILD PAIN(1-3)OR ELEVATED TEMP Last administered on 02/17/19 20:25; Admin Dose 650 MG; Start 02/10/19 at 23:00 Albuterol/ Ipratropium (Duoneb) 3 ml Q4H RESP THERAPY HHN Last administered on 02/18/19 05:13; Admin Dose 3 ML; Start 02/11/19 at 01:00 Albuterol/ Ipratropium (Duoneb) 3 ml Q2H RESP THERAPY PRN HHN SHORTNESS OF BREATH; Start 02/10/19 at 23:00 Allopurinol (Zyloprim) 100 mg DAILY PO Last administered on 02/18/19 09:48; Admin Dose 100 MG; Start 02/11/19 at 09:00 Apixaban (Eliquis) 2.5 mg BID PO Last administered on 02/18/19 09:47; Admin Dose 2.5 MG; Start 02/11/19 at 09:00 Non-Formulary Medication 1 DROP BOTH EYES Q4H PRN BOTH EYES DRY EYES Last administered on 02/15/19 19:07; Admin Dose 1 EA; Start 02/10/19 at 23:30 Latanoprost (Xalatan) 1 drop HS BOTH EYES Last administered on 02/17/19 20:35; Admin Dose 1 DROP; Start 02/11/19 at 21:00 Docusate Sodium (Colace Liquid Cup) 100 mg BID PO Last administered on 02/17/19 20:37; Admin Dose 100 MG; Start 02/11/19 at 21:00 Senna (Senokot) 1 tab HS PO Last administered on 02/17/19 20:25; Admin Dose 1 TAB; Start 02/11/19 at 21:00 Bisacodyl (Dulcolax Supp) 10 mg DAILY PRN [place] CONSTIPATION; Start 02/11/19 at 17:00 Magnesium Hydroxide (Milk Of Mag) 30 ml BID PRN PO CONSTIPATION Last administered on 02/17/19 06:52; Admin Dose 30 ML; Start 02/11/19 at 17:00 Lactulose (Enulose) 20 gm DAILY PRN PO CONSTIPATION Last administered on 02/13/19 08:58; Admin Dose 20 GM; Start 02/11/19 at 17:00 Cyclosporine (Restasis) 1 drop BID BOTH EYES Last administered on 02/18/19 09:46; Admin Dose 1 DROP; Start 02/12/19 at 09:00 Ciprofloxacin (Cipro) 500 mg BID@,18 PO Last administered on 02/18/19 06:46; Admin Dose 500 MG; Start 02/13/19 at 18:00; Stop 02/20/19 at 17:59 Calcium Carbonate (Tums) 500 mg Q4 PRN PO hyperacidity Last administered on 02/13/19 21:31; Admin Dose 500 MG; Start 02/13/19 at 15:00 Hydralazine HCl (Apresoline) 25 mg TID PO Last administered on 02/18/19 09:48; Admin Dose 25 MG; Start 02/13/19 at 15:00 Alprazolam (Xanax) 0.25 mg HS PRN PO SLEEP Last administered on 02/17/19 20:24; Admin Dose 0.25 MG; Start 02/13/19 at 17:00 Furosemide (Lasix) 20 mg DAILY PO Last administered on 02/18/19 09:47; Admin Dose 20 MG; Start 02/18/19 at 09:00 Assessment/Plan Additional Assessment/Plan Rehab- PULMONARY DEBILITY Status post aspiration pneumonia. Continue rehab Dysphagia- speech CHF. CARDIAC PRECAUTIONS Acute on chronic kidney disease. Diabetes mellitus type 2. History of DVT. History of GI bleed. Atrial fibrillation with history of pacemaker. Urinary tract infection. ERIC FRIED MD Feb 18, 2019 12:55
[2019-02-18 14:36] VITALS: BP 106/56; PULSE 65; RESP 16
--- NOTE | 2019-02-18 18:39 | CONS ---
Assessment/Plan Assessment/Plan Hospital Course (Demo Recall) IMP: 1.AF-Paced when last on tele. on eliquis 2.PPM-no signs of dysfunction at this time 3.HTN-labile 4.DM 5.sob-likley PNA with possible component of CHF-diastolic EF 60% by echo this admit. Now improved 6. Hypothyroid 7. PNA by chest CT 8. Renal failure-slight worsening Recc: -Now in rehab -serial ecg's -Continue sotalol as tolerated only and follow QTc on sotalol -hydralazine now resumed -Continue abx's and f/u cx data -Follow volume status clsoely with lasix 20 po daily and will discuss with nurse what patient is taking in that causes her to be so positive each day -Continue bronchodilators -give dose of albumin -PT Consultation Date/Type/Reason Admit Date/Time Feb 10, 2019 at 18:51 Initial Consult Date 02/11/19 Type of Consult Cardiology Reason for Consultation HTN/CHF Requesting Provider: HERSON DAVIS MD Date/Time of Note DATE: 02/18/19 TIME: 18:32 Exam/Review of Systems Vital Signs Vitals Vital Signs Date Temp Pulse Resp B/P (MAP) Pulse Ox O2 O2 Flow FiO2 Time Delivery Rate 02/18/19 62 18 96 Nasal 2.0 17:18 Cannula 02/18/19 97.9 106/56 14:36 (73) 02/17/19 21 20:34 Intake and Output 02/17/19 02/17/19 02/18/19 1515:00 23:00 07:00 IntakeIntake Total 400 ml 900 ml 940 ml OutputOutput Total 400 ml BalanceBalance 400 ml 500 ml 940 ml Exam Exam Review of Systems: CONSTITUTIONAL: No fevers, chills. PULMONARY: No sob CARDIOVASCULAR: No chest pain/palpitations GASTROINTESTINAL: No nausea/vomiting. GENITOURINARY: No hematuria/dysuria. MUSCULOSKELETAL: No myagias/arthalgias. PSYCHIATRIC: The patient denies depression. NEUROLOGIC: lethargic Constitutional: alert, oriented Psych: no complaints Head: normocephalic ENMT: mucosa pink and moist Neck: supple, jvd (9 cm water) Respiratory: clear to auscultation Cardiovascular: regular rate and rhythm Gastrointestinal: soft, non-tender Musculoskeletal: muscle weakness (generalized mild) Extremities: pitting pedal edema (bilateral) Labs Result Diagram: 02/18/19 0642 Results 24hrs Laboratory Tests Test 02/17/19 20:33 02/18/19 06:42 02/18/19 07:38 02/18/19 11:50 Bedside Glucose 179 142 224 H Sodium Level 140 Potassium Level 3.8 Chloride Level 103 Carbon Dioxide Level 29 Anion Gap 8 Blood Urea Nitrogen 23 H Creatinine 1.34 H Est Glomerular Filtrat Rate mL/min Glucose Level 139 Calcium Level 8.6 Test 02/18/19 17:26 Bedside Glucose 290 H Medications Medications Current Medications Polyethylene Glycol (Miralax) 17 gm DAILY PO Last administered on 02/17/19 08:58; Admin Dose 17 GM; Start 02/11/19 at 09:00 Sotalol HCl (Betapace) 80 mg BID PO Last administered on 02/18/19 09:47; Admin Dose 80 MG; Start 02/11/19 at 09:00 Tiotropium [place] (Spiriva) 1 inh DAILY INH Last administered on 02/18/19 09:46; Admin Dose 1 INH; Start 02/11/19 at 09:00 Lansoprazole (Prevacid) 30 mg BID@0600,1800 PO Last administered on 02/18/19 17:34; Admin Dose 30 MG; Start 02/11/19 at 06:00 Linagliptin (Tradjenta) 5 mg DAILY PO Last administered on 02/18/19 09:46; Admin Dose 5 MG; Start 02/11/19 at 09:00 Lubiprostone (Amitiza) 24 mcg WITH BREAKFAST DINNE PO Last administered on 02/18/19 17:34; Admin Dose 24 MCG; Start 02/11/19 at 07:35 Meclizine HCl (Antivert) 25 mg TID PO Last administered on 02/18/19 13:40; Admin Dose 25 MG; Start 02/11/19 at 09:00 Megestrol Acetate (Megace Susp) 400 mg DAILY PO Last administered on 02/18/19 09:46; Admin Dose 400 MG; Start 02/11/19 at 09:00 Miscellaneous Information 1 ea NOTE XX ; Start 02/10/19 at 22:30 Glucose (Glutose) 15 gm Q15M PRN PO DECREASED GLUCOSE; Start 02/10/19 at 22:30 Glucose (Glutose) 22.5 gm Q15M PRN PO DECREASED GLUCOSE; Start 02/10/19 at 22:30 Dextrose (D50w Syringe) 25 ml Q15M PRN IV DECREASED GLUCOSE; Start 02/10/19 at 22:30 Dextrose (D50w Syringe) 50 ml Q15M PRN IV DECREASED GLUCOSE; Start 02/10/19 at 22:30 Glucagon (Glucagen) 1 mg Q15M PRN IM DECREASED GLUCOSE; Start 02/10/19 at 22:30 Glucose (Glutose) 15 gm Q15M PRN BUCCAL DECREASED GLUCOSE; Start 02/10/19 at 22:30 Insulin Aspart (Novolog Insulin Pen) (Adult SC Insulin - Mild Algorithm)... AC MEALS AND BEDTIME SC Last administered on 02/18/19 17:33; Admin Dose 4 UNIT; Start 02/11/19 at 07:05 Diagnostic Test (Pha) (Accu-Chek) 1 ea 02 XX Last administered on 02/18/19at 02:00; Admin Dose 1 EA; Start 02/11/19 at 02:00 Levothyroxine Sodium (Synthroid) 75 mcg BEFORE BREAKFAST PO Last administered on 02/18/19 06:46; Admin Dose 75 MCG; Start 02/11/19 at 07:00 Ferrous Sulfate (Ferrous Sulfate (Ec)) 325 mg BID@0600,1800 PO Last admin istered on 02/18/19 06:46; Admin Dose 325 MG; Start 02/11/19 at 06:00; Stop 03/03/19 at 05:59 Acetaminophen (Tylenol Tab) 650 mg Q6H PRN PO MILD PAIN(1-3)OR ELEVATED TEMP Last administered on 02/17/19at 20:25; Admin Dose 650 MG; Start 02/10/19 at 23:00 Albuterol/ Ipratropium (Duoneb) 3 ml Q4H RESP THERAPY HHN Last administered on 02/18/19 17:18; Admin Dose 3 ML; Start 02/11/19 at 01:00 Albuterol/ Ipratropium (Duoneb) 3 ml Q2H RESP THERAPY PRN HHN SHORTNESS OF BREATH; Start 02/10/19 at 23:00 Allopurinol (Zyloprim) 100 mg DAILY PO Last administered on 02/18/19 09:48; Admin Dose 100 MG; Start 02/11/19 at 09:00 Apixaban (Eliquis) 2.5 mg BID PO Last administered on 02/18/19 09:47; Admin D ose 2.5 MG; Start 02/11/19 at 09:00 Non-Formulary Medication 1 DROP BOTH EYES Q4H PRN BOTH EYES DRY EYES Last administered on 02/15/19 19:07; Admin Dose 1 EA; Start 02/10/19 at 23:30 Latanoprost (Xalatan) 1 drop HS BOTH EYES Last administered on 02/17/19 20:35; Admin Dose 1 DROP; Start 02/11/19 at 21:00 Docusate Sodium (Colace Liquid Cup) 100 mg BID PO Last administered on 02/17/19 20:37; Admin Dose 100 MG; Start 02/11/19 at 21:00 Senna (Senokot) 1 tab HS PO Last administered on 02/17/19 20:25; Admin Dose 1 TAB; Start 02/11/19 at 21:00 Bisacodyl (Dulcolax Supp) 10 mg DAILY PRN [place] CONSTIPATION; Start 02/11/19 at 17:00 Magnesium Hydroxide (Milk Of Mag) 30 ml BID PRN PO CONSTIPATION Last administered on 02/17/19 06:52; Admin Dose 30 ML; Start 02/11/19 at 17:00 Lactulose (Enulose) 20 gm DAILY PRN PO CONSTIPATION Last administered on 02/13/19 08:58; Admin Dose 20 GM; Start 02/11/19 at 17:00 Cyclosporine (Restasis) 1 drop BID BOTH EYES Last administered on 02/18/19 09:46; Admin Dose 1 DROP; Start 02/12/19 at 09:00 Ciprofloxacin (Cipro) 500 mg BID@18 PO Last administered on 02/18/19 17:33; Admin Dose 500 MG; Start 02/13/19 at 18:00; Stop 02/20/19 at 17:59 Calcium Carbonate (Tums) 500 mg Q4 PRN PO hyperacidity Last administered on 02/13/19 21:31; Admin Dose 500 MG; Start 02/13/19 at 15:00 Hydralazine HCl (Apresoline) 25 mg TID PO Last administered on 3/21/19at 13:41; Admin Dose 25 MG; Start 02/13/19 at 15:00 Alprazolam (Xanax) 0.25 mg HS PRN PO SLEEP Last administered on 02/17/19at 20:24; Admin Dose 0.25 MG; Start 02/13/19 at 17:00 Furosemide (Lasix) 20 mg DAILY PO Last administered on 02/18/19at 09:47; Admin Dose 20 MG; Start 02/18/19 at 09:00 SHAWANDA LUGO Feb 18, 2019 18:39
[2019-02-18] MEDS ORDERED: ALBUMIN HUMAN 25% 50 ML IV ONE (20:00)
[2019-02-18 20:12] VITALS: BP 112/55; PULSE 64; RESP 18
[2019-02-18] MEDS: LATANOPROST 0.005% 2.5 ML OPH BOTH EYES SCH (21:00)
[2019-02-18] MEDS: SENNA TAB PO SCH (21:18)
[2019-02-18] MEDS: ALPRAZOLAM 0.25 MG TAB PO PRN (21:18)
[2019-02-19] MEDS: ALBUTEROL/IPRATROPIUM (NEB) 3 ML AMP HHN SCH ×6 (01:01→21:26)
[2019-02-19] MEDS: ACCUCHECK AT 2AM (Patients on SS coverage) XX SCH (02:00)
[2019-02-19 02:03] VITALS: BP 107/57; PULSE 62; RESP 18
[2019-02-19] MEDS: LEVOTHYROXINE 75 MCG TAB PO SCH (06:23)
[2019-02-19] MEDS: CIPROFLOXACIN 500 MG TAB PO SCH ×2 (06:23→17:39)
[2019-02-19] MEDS: FERROUS SULFATE (EC) 325 MG TAB PO SCH ×2 (06:23→17:39)
[2019-02-19] MEDS: LANSOPRAZOLE 30 MG CAP PO SCH ×2 (06:23→17:39)
[2019-02-19 07:30] VITALS: BP 110/67; PULSE 62; RESP 18
[2019-02-19] MEDS: LUBIPROSTONE 24 MCG CAP PO SCH ×2 (08:07→17:39)
[2019-02-19] MEDS: LINAGLIPTIN 5 MG TABLET PO SCH (08:36)
[2019-02-19] MEDS: Insulin NOVOLOG SS MILD Algorithm (SS with meals and bedtime) SC SCH ×4 (08:36→20:54)
[2019-02-19] MEDS: POLYETHYLENE GLYCOL 17 GM PACKET PO SCH (10:10)
[2019-02-19] MEDS: TIOTROPIUM 18 MCG CAPSULE INHA DEV INH SCH (10:11)
[2019-02-19] MEDS: MEGESTROL (40 MG/ML) 10ML CUP PO SCH (10:11)
[2019-02-19] MEDS: DOCUSATE SODIUM 10 MG/ML (10ML CUP) PO SCH ×2 (10:11→21:04)
[2019-02-19] MEDS: SOTALOL 80 MG TAB PO SCH ×2 (10:11→21:06)
[2019-02-19] MEDS: APIXABAN 5 MG TABLET PO SCH ×2 (10:12→21:04)
[2019-02-19] MEDS: MECLIZINE 25 MG TAB PO SCH ×3 (10:12→21:00)
[2019-02-19] MEDS: FUROSEMIDE 20 MG TAB PO SCH (10:12)
[2019-02-19] MEDS: CYCLOSPORINE 0.05% OPH DROPERETTE BOTH EYES SCH ×2 (10:12→21:04)
[2019-02-19] MEDS: ALLOPURINOL 100 MG TAB PO SCH (10:12)
--- NOTE | 2019-02-19 12:04 | PN ---
Date/Time of Note Date/Time of Note DATE: 02/19/19 TIME: 12:03 Subjective No new complaints Objective Vital Signs Date Temp Pulse Resp B/P (MAP) Pulse Ox O2 O2 Flow FiO2 Time Delivery Rate 02/19/19 66 20 93 21 09:44 02/19/19 97.9 110/67 Nasal 07:30 (81) Cannula 02/19/19 2.0 05:02 Intake and Output 02/18/19 02/18/19 02/19/19 1414:59 22:59 06:59 IntakeIntake Total 1850 ml OutputOutput Total 1000 ml BalanceBalance 850 ml Exam pulm-cta min ambulation Results/Medications Result Diagram: 02/18/19 0642 Results 24 hrs Laboratory Tests Test 02/18/19 17:26 02/18/19 21:29 02/19/19 08:28 Bedside Glucose 290 H 162 165 Medications Current Medications Polyethylene Glycol (Miralax) 17 gm DAILY PO Last administered on 02/19/19 10:10; Admin Dose 17 GM; Start 02/11/19 at 09:00 Sotalol HCl (Betapace) 80 mg BID PO Last administered on 02/19/19 10:11; Admin Dose 80 MG; Start 02/11/19 at 09:00 Tiotropium [place] (Spiriva) 1 inh DAILY INH Last administered on 02/19/19 10:11; Admin Dose 1 INH; Start 02/11/19 at 09:00 Lansoprazole (Prevacid) 30 mg BID@0600,1800 PO Last administered on 02/19/19 06:23; Admin Dose 30 MG; Start 02/11/19 at 06:00 Linagliptin (Tradjenta) 5 mg DAILY PO Last administered on 02/19/19 08:36; Admin Dose 5 MG; Start 02/11/19 at 09:00 Lubiprostone (Amitiza) 24 mcg WITH BREAKFAST DINNE PO Last administered on 02/19/19 08:07; Admin Dose 24 MCG; Start 02/11/19 at 07:35 Meclizine HCl (Antivert) 25 mg TID PO Last administered on 02/19/19 10:12; Admin Dose 25 MG; Start 02/11/19 at 09:00 Megestrol Acetate (Megace Susp) 400 mg DAILY PO Last administered on 3/22/19at 10:11; Admin Dose 400 MG; Start 02/11/19 at 09:00 Miscellaneous Information 1 ea NOTE XX ; Start 02/10/19 at 22:30 Glucose (Glutose) 15 gm Q15M PRN PO DECREASED GLUCOSE; Start 02/10/19 at 22:30 Glucose (Glutose) 22.5 gm Q15M PRN PO DECREASED GLUCOSE; Start 02/10/19 at 22:30 Dextrose (D50w Syringe) 25 ml Q15M PRN IV DECREASED GLUCOSE; Start 02/10/19 at 22:30 Dextrose (D50w Syringe) 50 ml Q15M PRN IV DECREASED GLUCOSE; Start 02/10/19 at 22:30 Glucagon (Glucagen) 1 mg Q15M PRN IM DECREASED GLUCOSE; Start 02/10/19 at 22:30 Glucose (Glutose) 15 gm Q15M PRN BUCCAL DECREASED GLUCOSE; Start 02/10/19 at 22:30 Insulin Aspart (Novolog Insulin Pen) (Adult SC Insulin - Mild Algorithm)... AC MEALS AND BEDTIME SC Last administered on 02/19/19at 08:36; Admin Dose 1 UNIT; Start 02/11/19 at 07:05 Diagnostic Test (Pha) (Accu-Chek) 1 ea 02 XX Last administered on 02/18/19at 02:00; Admin Dose 1 EA; Start 02/11/19 at 02:00 Levothyroxine Sodium (Synthroid) 75 mcg BEFORE BREAKFAST PO Last administered on 02/19/19 06:23; Admin Dose 75 MCG; Start 02/11/19 at 07:00 Ferrous Sulfate (Ferrous Sulfate (Ec)) 325 mg BID@0600,1800 PO Last administered on 02/19/19 06:23; Admin Dose 325 MG; Start 02/11/19 at 06:00; Stop 03/03/19 at 05:59 Acetaminophen (Tylenol Tab) 650 mg Q6H PRN PO MILD PAIN(1-3)OR ELEVATED TEMP Last administered on 02/17/19at 20:25; Admin Dose 650 MG; Start 02/10/19 at 23:00 Albuterol/ Ipratropium (Duoneb) 3 ml Q4H RESP THERAPY HHN Last administered on 02/19/19at 09:44; Admin Dose 3 ML; Start 02/11/19 at 01:00 Albuterol/ Ipratropium (Duoneb) 3 ml Q2H RESP THERAPY PRN HHN SHORTNESS OF BREATH; Start 02/10/19 at 23:00 Allopurinol (Zyloprim) 100 mg DAILY PO Last administered on 02/19/19 10:12; Admin Dose 100 MG; Start 02/11/19 at 09:00 Apixaban (Eliquis) 2.5 mg BID PO Last administered on 02/19/19 10:12; Admin Dose 2.5 MG; Start 02/11/19 at 09:00 Non-Formulary Medication 1 DROP BOTH EYES Q4H PRN BOTH EYES DRY EYES Last administered on 02/15/19 19:07; Admin Dose 1 EA; Start 02/10/19 at 23:30 Latanoprost (Xalatan) 1 drop HS BOTH EYES Last administered on 02/17/19 20:35; Admin Dose 1 DROP; Start 02/11/19 at 21:00 Docusate Sodium (Colace Liquid Cup) 100 mg BID PO Last administered on 02/19/19 10:11; Admin Dose 100 MG; Start 02/11/19 at 21:00 Senna (Senokot) 1 tab HS PO Last administered on 02/18/19 21:18; Admin Dose 1 TAB; Start 02/11/19 at 21:00 Bisacodyl (Dulcolax Supp) 10 mg DAILY PRN [place] CONSTIPATION; Start 02/11/19 at 17:00 Magnesium Hydroxide (Milk Of Mag) 30 ml BID PRN PO CONSTIPATION Last administered on 02/17/19 06:52; Admin Dose 30 ML; Start 02/11/19 at 17:00 Lactulose (Enulose) 20 gm DAILY PRN PO CONSTIPATION Last administered on 08:58; Admin Dose 20 GM; Start 02/11/19 at 17:00 Cyclosporine (Restasis) 1 drop BID BOTH EYES Last administered on 02/19/19 10:12; Admin Dose 1 DROP; Start 02/12/19 at 09:00 Ciprofloxacin (Cipro) 500 mg BID@,18 PO Last administered on 02/19/19 06:23; Admin Dose 500 MG; Start 02/13/19 at 18:00; Stop 02/20/19 at 17:59 Calcium Carbonate (Tums) 500 mg Q4 PRN PO hyperacidity Last administered on 02/13/19 21:31; Admin Dose 500 MG; Start 02/13/19 at 15:00 Hydralazine HCl (Apresoline) 25 mg TID PO Last administered on 02/19/19 10:12; Admin Dose 25 MG; Start 02/13/19 at 15:00 Alprazolam (Xanax) 0.25 mg HS PRN PO SLEEP Last administered on 02/18/19 21:18; Admin Dose 0.25 MG; Start 02/13/19 at 17:00 Furosemide (Lasix) 20 mg DAILY PO Last administered on 02/19/19 10:12; Admin Dose 20 MG; Start 02/18/19 at 09:00 Assessment/Plan Additional Assessment/Plan Rehab- Pulmonary debility- Status post aspiration pneumonia. Continue rehabtreatment plan Dysphagia- speech CHF Acute on chronic kidney disease. Diabetes mellitus type 2. History of DVT. History of GI bleed. Atrial fibrillation with history of pacemaker. Urinary tract infection. EIRC FRIED MD Feb 19, 2019 12:04
--- NOTE | 2019-02-19 13:08 | PN ---
Date/Time of Note Date/Time of Note DATE: 02/19/19 TIME: 13:06 Assessment/Plan VTE Prophylaxis Risk score (from Ns)>0 risk: 6 SCD applied (from Ns): No SCD contraindicated: other Pharmacological prophylaxis: apixaban Lines/Catheters IV [facility]from [facility] [place] Urinary Cath still in place: No Assessment/Plan Hospital Course SUBJECTIVE: No acute overnight episodes. OBJECTIVE: Vital signs-see below PHYSICAL EXAM: Constitutional: Frail looking, elderly female, not in acute distress. Psych: nl mood/affect, no complaints Head: atraumatic, normocephalic Eyes: nl conjunctiva, nl sclera ENMT: mucosa pink and moist, nl external ears & nose Neck: non-tender, supple Respiratory: clear bilaterally, normal air movement Cardiovascular: . nl pulses, regular rate and rhythm Gastrointestinal: non-tender, soft, bowel sounds active in all 4 quadrants. Musculoskeletal/extremities: nl extremities to inspection, motor strength equal bilaterally, no focal deficit. Normal pulses,no cyanosis, no edema. Neurological: Alert oriented 3,nl speech, nl strength Skin: nl turgor ASSESSMENT/PLAN:88-year-old female w/ multiple comorbidities including CHF, PAF, anemia, CKD, diabetes, hypothyroidism, transferred from [facility] after she was treated for acute respiratory failure secondary to aspiration pneumonia and heart failure for progressive debility. 1. Progressive debility -Continue rehab/PT 2. Status post respiratory failure secondary to aspiration pneumonia/CHF -Stable. Continue to monitor respiratory status. 3. Status post pneumonia -Stable. Treated.. 4. Chronic diastolic congestive heart failure. -Compensated. Continue current cardiac medications/beta-blockers/Lasix 5. Paroxysmal atrial fibrillation. -Stable -Continue Eliquis, Betapace 6.CKD -Stable renal function. 7.DMII -Stable glycemic trends. Continue Tradjenta -Accuchecks/ISS 8. Anemia of CKD. -HH stable. 9. Hypothyroidism -On Synthroid 10. 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 -On allopurinol. 11. UTI. -on Ciprox7 days. DVT prophylaxis: Santos Patient was seen in collaboration with . Result Diagram: 02/18/19 0642 Results 24hrs Laboratory Tests Test 02/18/19 17:26 02/18/19 21:29 02/19/19 08:28 02/19/19 12:01 Bedside Glucose 290 H 162 165 164 Exam/Review of Systems Exam Vitals Vital Signs Date Temp Pulse Resp B/P (MAP) Pulse Ox O2 O2 Flow FiO2 Time Delivery Rate 02/19/19 66 20 93 21 09:44 02/19/19 97.9 110/67 Nasal 07:30 (81) Cannula 02/19/19 2.0 05:02 Intake and Output 02/18/19 02/18/19 02/19/19 1515:00 23:00 07:00 IntakeIntake Total 1850 ml OutputOutput Total 1000 ml BalanceBalance 850 ml Results Results 24hrs Laboratory Tests Test 02/18/19 17:26 02/18/19 21:29 02/19/19 08:28 02/19/19 12:01 Bedside Glucose 290 H 162 165 164 Medications Medication Current Medications Polyethylene Glycol (Miralax) 17 gm DAILY PO Last administered on 02/19/19 10:10; Admin Dose 17 GM; Start 02/11/19 at 09:00 Sotalol HCl (Betapace) 80 mg BID PO Last administered on 02/19/19 10:11; Admin Dose 80 MG; Start 02/11/19 at 09:00 Tiotropium [place] (Spiriva) 1 inh DAILY INH Last administered on 02/19/19 10:11; Admin Dose 1 INH; Start 02/11/19 at 09:00 Lansoprazole (Prevacid) 30 mg BID@0600,1800 PO Last administered on 02/19/19 06:23; Admin Dose 30 MG; Start 02/11/19 at 06:00 Linagliptin (Tradjenta) 5 mg DAILY PO Last administered on 02/19/19 08:36; Admin Dose 5 MG; Start 02/11/19 at 09:00 Lubiprostone (Amitiza) 24 mcg WITH BREAKFAST DINNE PO Last administered on 02/19/19 08:07; Admin Dose 24 MCG; Start 02/11/19 at 07:35 Meclizine HCl (Antivert) 25 mg TID PO Last administered on 02/19/19 10:12; Admin Dose 25 MG; Start 02/11/19 at 09:00 Megestrol Acetate (Megace Susp) 400 mg DAILY PO Last administered on 3/22/19at 10:11; Admin Dose 400 MG; Start 02/11/19 at 09:00 Miscellaneous Information 1 ea NOTE XX ; Start 02/10/19 at 22:30 Glucose (Glutose) 15 gm Q15M PRN PO DECREASED GLUCOSE; Start 02/10/19 at 22:30 Glucose (Glutose) 22.5 gm Q15M PRN PO DECREASED GLUCOSE; Start 02/10/19 at 22:30 Dextrose (D50w Syringe) 25 ml Q15M PRN IV DECREASED GLUCOSE; Start 02/10/19 at 22:30 Dextrose (D50w Syringe) 50 ml Q15M PRN IV DECREASED GLUCOSE; Start 02/10/19 at 22:30 Glucagon (Glucagen) 1 mg Q15M PRN IM DECREASED GLUCOSE; Start 02/10/19 at 22:30 Glucose (Glutose) 15 gm Q15M PRN BUCCAL DECREASED GLUCOSE; Start 02/10/19 at 22:30 Insulin Aspart (Novolog Insulin Pen) (Adult SC Insulin - Mild Algorithm)... AC MEALS AND BEDTIME SC Last administered on 02/19/19at 12:05; Admin Dose 1 UNIT; Start 02/11/19 at 07:05 Diagnostic Test (Pha) (Accu-Chek) 1 ea 02 XX Last administered on 02/18/19at 02:00; Admin Dose 1 EA; Start 02/11/19 at 02:00 Levothyroxine Sodium (Synthroid) 75 mcg BEFORE BREAKFAST PO Last administered on 02/19/19 06:23; Admin Dose 75 MCG; Start 02/11/19 at 07:00 Ferrous Sulfate (Ferrous Sulfate (Ec)) 325 mg BID@0600,1800 PO Last administered on 02/19/19at 06:23; Admin Dose 325 MG; Start 02/11/19 at 06:00; Stop 03/03/19 at 05:59 Acetaminophen (Tylenol Tab) 650 mg Q6H PRN PO MILD PAIN(1-3)OR ELEVATED TEMP Last administered on 02/17/19at 20:25; Admin Dose 650 MG; Start 02/10/19 at 23:00 Albuterol/ Ipratropium (Duoneb) 3 ml Q4H RESP THERAPY HHN Last administered on 02/19/19at 13:06; Admin Dose 3 ML; Start 02/11/19 at 01:00 Albuterol/ Ipratropium (Duoneb) 3 ml Q2H RESP THERAPY PRN HHN SHORTNESS OF BREATH; Start 02/10/19 at 23:00 Allopurinol (Zyloprim) 100 mg DAILY PO Last administered on 02/19/19 10:12; Admin Dose 100 MG; Start 02/11/19 at 09:00 Apixaban (Eliquis) 2.5 mg BID PO Last administered on 02/19/19 10:12; Admin Dose 2.5 MG; Start 02/11/19 at 09:00 Non-Formulary Medication 1 DROP BOTH EYES Q4H PRN BOTH EYES DRY EYES Last administered on 02/15/19 19:07; Admin Dose 1 EA; Start 02/10/19 at 23:30 Latanoprost (Xalatan) 1 drop HS BOTH EYES Last administered on 02/17/19 20:35; Admin Dose 1 DROP; Start 02/11/19 at 21:00 Docusate Sodium (Colace Liquid Cup) 100 mg BID PO Last administered on 02/19/19 10:11; Admin Dose 100 MG; Start 02/11/19 at 21:00 Senna (Senokot) 1 tab HS PO Last administered on 02/18/19 21:18; Admin Dose 1 TAB; Start 02/11/19 at 21:00 Bisacodyl (Dulcolax Supp) 10 mg DAILY PRN [place] CONSTIPATION; Start 02/11/19 at 17:00 Magnesium Hydroxide (Milk Of Mag) 30 ml BID PRN PO CONSTIPATION Last administered on 02/17/19 06:52; Admin Dose 30 ML; Start 02/11/19 at 17:00 Lactulose (Enulose) 20 gm DAILY PRN PO CONSTIPATION Last administered on 02/13/19 08:58; Admin Dose 20 GM; Start 02/11/19 at 17:00 Cyclosporine (Restasis) 1 drop BID BOTH EYES Last administered on 02/19/19 10:12; Admin Dose 1 DROP; Start 02/12/19 at 09:00 Ciprofloxacin (Cipro) 500 mg BID@,18 PO Last administered on 02/19/19 06:23; Admin Dose 500 MG; Start 02/13/19 at 18:00; Stop 02/20/19 at 17:59 Calcium Carbonate (Tums) 500 mg Q4 PRN PO hyperacidity Last administered on 02/13/19 21:31; Admin Dose 500 MG; Start 02/13/19 at 15:00 Hydralazine HCl (Apresoline) 25 mg TID PO Last administered on 02/19/19 10:12; Admin Dose 25 MG; Start 02/13/19 at 15:00 Alprazolam (Xanax) 0.25 mg HS PRN PO SLEEP Last administered on 02/18/19 21:18; Admin Dose 0.25 MG; Start 02/13/19 at 17:00 Furosemide (Lasix) 20 mg DAILY PO Last administered on 02/19/19 10:12; Admin Dose 20 MG; Start 02/18/19 at 09:00 ANDREA KHAN NP Feb 19, 2019 13:08
[2019-02-19 14:00] VITALS: BP 97/54; PULSE 88; RESP 20
--- NOTE | 2019-02-19 16:14 | CONS ---
Assessment/Plan Assessment/Plan Hospital Course (Demo Recall) IMP: 1.AF-Paced when last on tele. on eliquis 2.PPM-no signs of dysfunction at this time 3.HTN-labile 4.DM 5.sob-likley PNA with possible component of CHF-diastolic EF 60% by echo this admit. Now improved 6. Hypothyroid 7. PNA by chest CT 8. Renal failure-slight worsening Recc: -Now in rehab -serial ecg's -Continue sotalol as tolerated only and follow QTc on sotalol -hydralazine now resumed but held due to low BPO and thus will reduce dose -Continue abx's and f/u cx data -Follow volume status clsoely with lasix 20 po daily aand patient is s/p dose albumiin yesterday for 3rd spaced fluids -Continue bronchodilators -PT Consultation Date/Type/Reason Admit Date/Time Feb 10, 2019 at 18:51 Initial Consult Date 02/11/19 Type of Consult Cardiology Reason for Consultation PPM Requesting Provider: HERSON DAVIS MD Date/Time of Note DATE: 02/19/19 TIME: 16:11 Exam/Review of Systems Vital Signs Vitals Vital Signs Date Temp Pulse Resp B/P (MAP) Pulse Ox O2 O2 Flow FiO2 Time Delivery Rate 02/19/19 97.9 88 20 97/54 (68) 98 Nasal 14:00 Cannula 02/19/19 2.0 13:08 02/19/19 28 13:06 Intake and Output 02/18/19 02/18/19 02/19/19 1515:00 23:00 07:00 IntakeIntake Total 1850 ml OutputOutput Total 1000 ml BalanceBalance 850 ml Exam Exam Review of Systems: CONSTITUTIONAL: No fevers, chills. PULMONARY: No sob CARDIOVASCULAR: No chest pain/palpitations GASTROINTESTINAL: No nausea/vomiting. GENITOURINARY: No hematuria/dysuria. MUSCULOSKELETAL: No myagias/arthalgias. PSYCHIATRIC: The patient denies depression. NEUROLOGIC: lethargic somewhat Constitutional: alert Psych: no complaints Head: normocephalic ENMT: mucosa pink and moist Neck: supple, jvd (9 cm water) Respiratory: diminished breath sounds (at bases/B) Cardiovascular: regular rate and rhythm Gastrointestinal: soft, non-tender Musculoskeletal: muscle tone (normal), muscle weakness (mild generalized) Extremities: edema (none) Neurological: other (No focal deficits) Labs Result Diagram: 02/18/19 0642 Results 24hrs Laboratory Tests Test 02/18/19 17:26 02/18/19 21:29 02/19/19 08:28 02/19/19 12:01 Bedside Glucose 290 H 162 165 164 Medications Medications Current Medications Polyethylene Glycol (Miralax) 17 gm DAILY PO Last administered on 02/19/19 10:10; Admin Dose 17 GM; Start 02/11/19 at 09:00 Sotalol HCl (Betapace) 80 mg BID PO Last administered on 02/19/19 10:11; Admin Dose 80 MG; Start 02/11/19 at 09:00 Tiotropium Marcellus (Spiriva) 1 inh DAILY INH Last administered on 02/19/19 10:11; Admin Dose 1 INH; Start 02/11/19 at 09:00 Lansoprazole (Prevacid) 30 mg BID@0600,1800 PO Last administered on 02/19/19 06:23; Admin Dose 30 MG; Start 02/11/19 at 06:00 Linagliptin (Tradjenta) 5 mg DAILY PO Last administered on 02/19/19 08:36; Admin Dose 5 MG; Start 02/11/19 at 09:00 Lubiprostone (Amitiza) 24 mcg WITH BREAKFAST DINNE PO Last administered on 02/19/19 08:07; Admin Dose 24 MCG; Start 02/11/19 at 07:35 Meclizine HCl (Antivert) 25 mg TID PO Last administered on 02/19/19at 10:12; Admin Dose 25 MG; Start 02/11/19 at 09:00 Megestrol Acetate (Megace Susp) 400 mg DAILY PO Last administered on 02/19/19 10:11; Admin Dose 400 MG; Start 02/11/19 at 09:00 Miscellaneous Information 1 ea NOTE XX ; Start 02/10/19 at 22:30 Glucose (Glutose) 15 gm Q15M PRN PO DECREASED GLUCOSE; Start 02/10/19 at 22:30 Glucose (Glutose) 22.5 gm Q15M PRN PO DECREASED GLUCOSE; Start 02/10/19 at 22:30 Dextrose (D50w Syringe) 25 ml Q15M PRN IV DECREASED GLUCOSE; Start 02/10/19 at 22:30 Dextrose (D50w Syringe) 50 ml Q15M PRN IV DECREASED GLUCOSE; Start 02/10/19 at 22:30 Glucagon (Glucagen) 1 mg Q15M PRN IM DECREASED GLUCOSE; Start 02/10/19 at 22:30 Glucose (Glutose) 15 gm Q15M PRN BUCCAL DECREASED GLUCOSE; Start 02/10/19 at 22:30 Insulin Aspart (Novolog Insulin Pen) (Adult SC Insulin - Mild Algorithm)... AC MEALS AND BEDTIME SC Last administered on 02/19/19at 12:05; Admin Dose 1 UNIT; Start 02/11/19 at 07:05 Diagnostic Test (Pha) (Accu-Chek) 1 ea 02 XX Last administered on 02/18/19at 02:00; Admin Dose 1 EA; Start 02/11/19 at 02:00 Levothyroxine Sodium (Synthroid) 75 mcg BEFORE BREAKFAST PO Last administered on 02/19/19 06:23; Admin Dose 75 MCG; Start 02/11/19 at 07:00 Ferrous Sulfate (Ferrous Sulfate (Ec)) 325 mg BID@0600,1800 PO Last administered on 02/19/19 06:23; Admin Dose 325 MG; Start 02/11/19 at 06:00; Stop 03/03/19 at 05:59 Acetaminophen (Tylenol Tab) 650 mg Q6H PRN PO MILD PAIN(1-3)OR ELEVATED TEMP Last administered on 02/17/19 20:25; Admin Dose 650 MG; Start 02/10/19 at 23:00 Albuterol/ Ipratropium (Duoneb) 3 ml Q4H RESP THERAPY HHN Last administered on 02/19/19at 16:10; Admin Dose 3 ML; Start 02/11/19 at 01:00 Albuterol/ Ipratropium (Duoneb) 3 ml Q2H RESP THERAPY PRN HHN SHORTNESS OF BREATH; Start 02/10/19 at 23:00 Allopurinol (Zyloprim) 100 mg DAILY PO Last administered on 02/19/19 10:12; Ad min Dose 100 MG; Start 02/11/19 at 09:00 Apixaban (Eliquis) 2.5 mg BID PO Last administered on 02/19/19 10:12; Admin Dose 2.5 MG; Start 02/11/19 at 09:00 Non-Formulary Medication 1 DROP BOTH EYES Q4H PRN BOTH EYES DRY EYES Last administered on 02/15/19 19:07; Admin Dose 1 EA; Start 02/10/19 at 23:30 Latanoprost (Xalatan) 1 drop HS BOTH EYES Last administered on 02/17/19 20:35; Admin Dose 1 DROP; Start 02/11/19 at 21:00 Docusate Sodium (Colace Liquid Cup) 100 mg BID PO Last administered on 02/19/19 10:11; Admin Dose 100 MG; Start 02/11/19 at 21:00 Senna (Senokot) 1 tab HS PO Last administered on 02/18/19 21:18; Admin Dose 1 TAB; Start 02/11/19 at 21:00 Bisacodyl (Dulcolax Supp) 10 mg DAILY PRN [place] CONSTIPATION; Start 02/11/19 at 17:00 Magnesium Hydroxide (Milk Of Mag) 30 ml BID PRN PO CONSTIPATION Last administered on 02/17/19 06:52; Admin Dose 30 ML; Start 02/11/19 at 17:00 Lactulose (Enulose) 20 gm DAILY PRN PO CONSTIPATION Last administered on 02/13/19 08:58; Admin Dose 20 GM; Start 02/11/19 at 17:00 Cyclosporine (Restasis) 1 drop BID BOTH EYES Last administered on 02/19/19 10:12; Admin Dose 1 DROP; Start 02/12/19 at 09:00 Ciprofloxacin (Cipro) 500 mg BID@18 PO Last administered on 02/19/19 06:23; Admin Dose 500 MG; Start 02/13/19 at 18:00; Stop 02/20/19 at 17:59 Calcium Carbonate (Tums) 500 mg Q4 PRN PO hyperacidity Last administered on 02/13/19 21:31; Admin Dose 500 MG; Start 02/13/19 at 15:00 Hydralazine HCl (Apresoline) 25 mg TID PO Last administered on 02/19/19 10:12; Admin Dose 25 MG; Start 02/13/19 at 15:00 Alprazolam (Xanax) 0.25 mg HS PRN PO SLEEP Last administered on 3/21/19at 21:18; Admin Dose 0.25 MG; Start 02/13/19 at 17:00 Furosemide (Lasix) 20 mg DAILY PO Last administered on 02/19/19at 10:12; Admin Dose 20 MG; Start 02/18/19 at 09:00 SHAWANDA LUGO Feb 19, 2019 16:14
[2019-02-19 20:07] VITALS: BP 118/57; PULSE 72; RESP 18
[2019-02-19] MEDS: ALPRAZOLAM 0.25 MG TAB PO PRN (21:02)
[2019-02-19] MEDS: SENNA TAB PO SCH (21:04)
[2019-02-19] MEDS: LATANOPROST 0.005% 2.5 ML OPH BOTH EYES SCH (21:18)
[2019-02-20] MEDS: ALBUTEROL/IPRATROPIUM (NEB) 3 ML AMP HHN SCH ×6 (00:30→21:16)
[2019-02-20] MEDS: ACCUCHECK AT 2AM (Patients on SS coverage) XX SCH (02:00)
[2019-02-20 02:06] VITALS: BP 108/56; PULSE 78; RESP 18
[2019-02-20] MEDS: CIPROFLOXACIN 500 MG TAB PO SCH ×2 (06:29→17:38)
[2019-02-20] MEDS: FERROUS SULFATE (EC) 325 MG TAB PO SCH ×2 (06:30→17:38)
[2019-02-20] MEDS: LANSOPRAZOLE 30 MG CAP PO SCH ×2 (06:30→17:38)
[2019-02-20] MEDS: LEVOTHYROXINE 75 MCG TAB PO SCH (06:30)
[2019-02-20 07:30] VITALS: BP 117/62; PULSE 83; RESP 20
[2019-02-20] MEDS: LUBIPROSTONE 24 MCG CAP PO SCH ×2 (07:58→17:38)
[2019-02-20] MEDS: LINAGLIPTIN 5 MG TABLET PO SCH (07:58)
[2019-02-20] MEDS: Insulin NOVOLOG SS MILD Algorithm (SS with meals and bedtime) SC SCH ×4 (07:59→21:14)
[2019-02-20] MEDS: POLYETHYLENE GLYCOL 17 GM PACKET PO SCH (08:50)
[2019-02-20] MEDS: MEGESTROL (40 MG/ML) 10ML CUP PO SCH (08:50)
[2019-02-20] MEDS: TIOTROPIUM 18 MCG CAPSULE INHA DEV INH SCH (08:51)
[2019-02-20] MEDS: DOCUSATE SODIUM 10 MG/ML (10ML CUP) PO SCH ×2 (08:51→21:33)
[2019-02-20] MEDS: APIXABAN 5 MG TABLET PO SCH ×2 (08:51→21:29)
[2019-02-20] MEDS: SOTALOL 80 MG TAB PO SCH ×2 (08:52→21:00)
[2019-02-20] MEDS: ALLOPURINOL 100 MG TAB PO SCH (08:52)
[2019-02-20] MEDS: MECLIZINE 25 MG TAB PO SCH ×3 (08:52→21:32)
[2019-02-20] MEDS: CYCLOSPORINE 0.05% OPH DROPERETTE BOTH EYES SCH ×2 (08:52→21:32)
[2019-02-20] MEDS: FUROSEMIDE 20 MG TAB PO SCH ×2 (09:00→17:40)
--- NOTE | 2019-02-20 10:43 | PN ---
Date/Time of Note Date/Time of Note DATE: 02/20/19 TIME: 10:41 Assessment/Plan VTE Prophylaxis Risk score (from Ns)>0 risk: 6 SCD applied (from [facility]): No SCD contraindicated: other Pharmacological prophylaxis: heparin Lines/Catheters IV Catheter Type (from [facility] [place] Urinary Cath still in place: No Assessment/Plan Problems: (1) Grade II diastolic dysfunction Status: Chronic Comment: Balance of the medications to deal with a lower extremity edema. We will give slightly more diuretic (2) Paroxysmal atrial fibrillation Status: Acute Comment: Adequate control think sotalol (3) Pacemaker Status: Chronic Comment: Stable and operational (4) Chronic kidney disease, stage 2, mildly decreased GFR Status: Chronic Comment: Fortunately stable and actually improved. Prior part of this was due to prerenal azotemia (5) Acquired hypothyroidism Status: Chronic Comment: Able on replacement (6) Centrilobular emphysema Status: Chronic Comment: On treatment and compensated Result Diagram: 02/18/19 0642 Results 24hrs Laboratory Tests Test 02/19/19 12:01 02/19/19 17:36 02/19/19 20:29 02/20/19 06:19 Bedside Glucose 164 219 185 170 Test 02/20/19 07:45 Bedside Glucose 165 Subjective 24 Hr Interval Summary Free Text/Dictation Patient states that she wants to go home immediately. She also reports that she has trouble changing her position and needs help at night Constitutional: no complaints Respiratory: no complaints Cardiovascular: no complaints, edema (Complains of lower extremity edema) Exam/Review of Systems Exam Vitals Vital Signs Date Temp Pulse Resp B/P (MAP) Pulse Ox O2 O2 Flow FiO2 Time Delivery Rate 02/20/19 63 18 93 21 07:53 02/20/19 98.2 117/62 Nasal 07:30 (80) Cannula 02/20/19 2.0 04:35 Intake and Output 02/19/19 02/19/19 02/20/19 1515:00 23:00 07:00 IntakeIntake Total 150 ml 480 ml BalanceBalance 150 ml 480 ml Constitutional: alert, oriented Neck: supple, non-tender Respiratory: clear to auscultation, normal air movement Cardiovascular: regular rate and rhythm, nl pulses, edema (2+ edema) Results Results 24hrs Laboratory Tests Test 02/19/19 12:01 02/19/19 17:36 02/19/19 20:29 02/20/19 06:19 Bedside Glucose 164 219 185 170 Test 02/20/19 07:45 Bedside Glucose 165 Medications Medication Current Medications Polyethylene Glycol (Miralax) 17 gm DAILY PO Last administered on 02/20/19 08:50; Admin Dose 17 GM; Start 02/11/19 at 09:00 Sotalol HCl (Betapace) 80 mg BID PO Last administered on 02/20/19 08:52; Admin Dose 80 MG; Start 02/11/19 at 09:00 Tiotropium Allen (Spiriva) 1 inh DAILY INH Last administered on 02/20/19 08:51; Admin Dose 1 INH; Start 02/11/19 at 09:00 Lansoprazole (Prevacid) 30 mg BID@0600,1800 PO Last administered on 02/20/19 06:30; Admin Dose 30 MG; Start 02/11/19 at 06:00 Linagliptin (Tradjenta) 5 mg DAILY PO Last administered on 02/20/19 07:58; Admin Dose 5 MG; Start 02/11/19 at 09:00 Lubiprostone (Amitiza) 24 mcg WITH BREAKFAST DINNE PO Last administered on 02/20/19 07:58; Admin Dose 24 MCG; Start 02/11/19 at 07:35 Meclizine HCl (Antivert) 25 mg TID PO Last administered on 02/20/19 08:52; Admin Dose 25 MG; Start 02/11/19 at 09:00 Megestrol Acetate (Megace Susp) 400 mg DAILY PO Last administered on 02/20/19 08:50; Admin Dose 400 MG; Start 02/11/19 at 09:00 Miscellaneous Information 1 ea NOTE XX ; Start 02/10/19 at 22:30 Glucose (Glutose) 15 gm Q15M PRN PO DECREASED GLUCOSE; Start 02/10/19 at 22:30 Glucose (Glutose) 22.5 gm Q15M PRN PO DECREASED GLUCOSE; Start 02/10/19 at 22:30 Dextrose (D50w Syringe) 25 ml Q15M PRN IV DECREASED GLUCOSE; Start 02/10/19 at 22:30 Dextrose (D50w Syringe) 50 ml Q15M PRN IV DECREASED GLUCOSE; Start 02/10/19 at 22:30 Glucagon (Glucagen) 1 mg Q15M PRN IM DECREASED GLUCOSE; Start 02/10/19 at 22:30 Glucose (Glutose) 15 gm Q15M PRN BUCCAL DECREASED GLUCOSE; Start 02/10/19 at 22:30 Insulin Aspart (Novolog Insulin Pen) (Adult SC Insulin - Mild Algorithm)... AC MEALS AND BEDTIME SC Last administered on 02/20/19 07:59; Admin Dose 1 UNIT; Start 02/11/19 at 07:05 Diagnostic Test (Pha) (Accu-Chek) 1 ea 02 XX Last administered on 02/20/19 02:00; Admin Dose 1 EA; Start 02/11/19 at 02:00 Levothyroxine Sodium (Synthroid) 75 mcg BEFORE BREAKFAST PO Last administered on 02/20/19 06:30; Admin Dose 75 MCG; Start 02/11/19 at 07:00 Ferrous Sulfate (Ferrous Sulfate (Ec)) 325 mg BID@0600,1800 PO Last ad ministered on 02/20/19 06:30; Admin Dose 325 MG; Start 02/11/19 at 06:00; Stop 03/03/19 at 05:59 Acetaminophen (Tylenol Tab) 650 mg Q6H PRN PO MILD PAIN(1-3)OR ELEVATED TEMP Last administered on 02/17/19 20:25; Admin Dose 650 MG; Start 02/10/19 at 23:00 Albuterol/ Ipratropium (Duoneb) 3 ml Q4H RESP THERAPY HHN Last administered on 02/20/19 07:53; Admin Dose 3 ML; Start 02/11/19 at 01:00 Albuterol/ Ipratropium (Duoneb) 3 ml Q2H RESP THERAPY PRN HHN SHORTNESS OF BREATH; Start 02/10/19 at 23:00 Allopurinol (Zyloprim) 100 mg DAILY PO Last administered on 02/20/19 08:52; Admin Dose 100 MG; Start 02/11/19 at 09:00 Apixaban (Eliquis) 2.5 mg BID PO Last administered on 02/20/19 08:51; Admin Dose 2.5 MG; Start 02/11/19 at 09:00 Non-Formulary Medication 1 DROP BOTH EYES Q4H PRN BOTH EYES DRY EYES Last administered on 02/15/19 19:07; Admin Dose 1 EA; Start 02/10/19 at 23:30 Latanoprost (Xalatan) 1 drop HS BOTH EYES Last administered on 02/19/19 21:18; Admin Dose 1 DROP; Start 02/11/19 at 21:00 Docusate Sodium (Colace Liquid Cup) 100 mg BID PO Last administered on 02/20/19 08:51; Admin Dose 100 MG; Start 02/11/19 at 21:00 Senna (Senokot) 1 tab HS PO Last administered on 02/19/19 21:04; Admin Dose 1 TAB; Start 02/11/19 at 21:00 Bisacodyl (Dulcolax Supp) 10 mg DAILY PRN [place] CONSTIPATION; Start 02/11/19 at 17:00 Magnesium Hydroxide (Milk Of Mag) 30 ml BID PRN PO CONSTIPATION Last administered on 02/17/19 06:52; Admin Dose 30 ML; Start 02/11/19 at 17:00 Lactulose (Enulose) 20 gm DAILY PRN PO CONSTIPATION Last administered on 02/13/19 08:58; Admin Dose 20 GM; Start 02/11/19 at 17:00 Cyclosporine (Restasis) 1 drop BID BOTH EYES Last administered on 02/20/19 08:52; Admin Dose 1 DROP; Start 02/12/19 at 09:00 Ciprofloxacin (Cipro) 500 mg BID@,18 PO Last administered on 02/20/19 06:29; Admin Dose 500 MG; Start 02/13/19 at 18:00; Stop 02/20/19 at 17:59 Calcium Carbonate (Tums) 500 mg Q4 PRN PO hyperacidity Last administered on 02/13/19 21:31; Admin Dose 500 MG; Start 02/13/19 at 15:00 Hydralazine HCl (Apresoline) 25 mg TID PO Last administered on 02/20/19 08:52; Admin Dose 25 MG; Start 02/13/19 at 15:00 Alprazolam (Xanax) 0.25 mg HS PRN PO SLEEP Last administered on 02/19/19 21:02; Admin Dose 0.25 MG; Start 02/13/19 at 17:00 Furosemide (Lasix) 20 mg DAILY PO Last administered on 02/19/19at 10:12; Admin Dose 20 MG; Start 02/18/19 at 09:00 LUIS EDUARDO MARLEY MD Feb 20, 2019 10:43
[2019-02-20] MEDS ORDERED: FUROSEMIDE 20 MG TAB PO ONE (11:00)
[2019-02-20 14:00] VITALS: BP 103/51; PULSE 69; RESP 20
--- NOTE | 2019-02-20 15:36 | CONS ---
Assessment/Plan Assessment/Plan Hospital Course (Demo Recall) IMP: 1.AF-Paced when last on tele. on eliquis 2.PPM-no signs of dysfunction at this time 3.HTN-labile 4.DM 5.sob-likley PNA with possible component of CHF-diastolic EF 60% by echo this admit. Now improved 6. Hypothyroid 7. PNA by chest CT 8. Renal failure-slight worsening Recc: -Now in rehab -serial ecg's -Continue eliquis -Continue sotalol as tolerated only and follow QTc on sotalol -hydralazine now resumed but held due to low BP again and thus will reduce dose -Continue abx's and f/u cx data -Follow volume status closely and will increase lasix to BID -s/p albumin infusion -Continue bronchodilators -PT Consultation Date/Type/Reason Admit Date/Time Feb 10, 2019 at 18:51 Initial Consult Date 02/11/19 Type of Consult Cardiology Reason for Consultation Cardiomyopathy Requesting Provider: HERSON DAVIS MD Date/Time of Note DATE: 02/20/19 TIME: 15:33 Exam/Review of Systems Vital Signs Vitals Vital Signs Date Temp Pulse Resp B/P (MAP) Pulse Ox O2 O2 Flow FiO2 Time Delivery Rate 02/20/19 63 18 93 21 07:53 02/20/19 98.2 117/62 Nasal 07:30 (80) Cannula 02/20/19 2.0 04:35 Intake and Output 02/19/19 02/19/19 02/20/19 1515:00 23:00 07:00 IntakeIntake Total 150 ml 480 ml BalanceBalance 150 ml 480 ml Exam Exam Review of Systems: CONSTITUTIONAL: No fevers, chills. PULMONARY: No sob CARDIOVASCULAR: No chest pain/palpitations GASTROINTESTINAL: No nausea/vomiting. GENITOURINARY: No hematuria/dysuria. MUSCULOSKELETAL: No myagias/arthalgias. PSYCHIATRIC: The patient denies depression. NEUROLOGIC: generalized weakness Constitutional: other (sleeping, arousable) Psych: no complaints Head: normocephalic ENMT: mucosa pink and moist Neck: supple, jvd (9 cm water) Respiratory: diminished breath sounds (at bases/B) Cardiovascular: regular rate and rhythm Gastrointestinal: soft, non-tender Musculoskeletal: muscle weakness (generalized) Extremities: pitting pedal edema (bilateral) Neurological: lethargic Labs Result Diagram: 02/18/19 0642 Results 24hrs Laboratory Tests Test 02/19/19 17:36 02/19/19 20:29 02/20/19 06:19 02/20/19 07:45 Bedside Glucose 219 185 170 165 Test 02/20/19 11:45 Bedside Glucose 213 Medications Medications Current Medications Polyethylene Glycol (Miralax) 17 gm DAILY PO Last administered on 02/20/19 08:50; Admin Dose 17 GM; Start 02/11/19 at 09:00 Sotalol HCl (Betapace) 80 mg BID PO Last administered on 02/20/19 08:52; Admin Dose 80 MG; Start 02/11/19 at 09:00 Tiotropium Rogers (Spiriva) 1 inh DAILY INH Last administered on 02/20/19 08:51; Admin Dose 1 INH; Start 02/11/19 at 09:00 Lansoprazole (Prevacid) 30 mg BID@0600,1800 PO Last administered on 02/20/19 06:30; Admin Dose 30 MG; Start 02/11/19 at 06:00 Linagliptin (Tradjenta) 5 mg DAILY PO Last administered on 02/20/19 07:58; Admin Dose 5 MG; Start 02/11/19 at 09:00 Lubiprostone (Amitiza) 24 mcg WITH BREAKFAST DINNE PO Last administered on 02/20/19 07:58; Admin Dose 24 MCG; Start 02/11/19 at 07:35 Meclizine HCl (Antivert) 25 mg TID PO Last administered on 02/20/19at 12:10; Admin Dose 25 MG; Start 02/11/19 at 09:00 Megestrol Acetate (Megace Susp) 400 mg DAILY PO Last administered on 02/20/19 08:50; Admin Dose 400 MG; Start 02/11/19 at 09:00 Miscellaneous Information 1 ea NOTE XX ; Start 02/10/19 at 22:30 Glucose (Glutose) 15 gm Q15M PRN PO DECREASED GLUCOSE; Start 02/10/19 at 22:30 Glucose (Glutose) 22.5 gm Q15M PRN PO DECREASED GLUCOSE; Start 02/10/19 at 22:30 Dextrose (D50w Syringe) 25 ml Q15M PRN IV DECREASED GLUCOSE; Start 02/10/19 at 22:30 Dextrose (D50w Syringe) 50 ml Q15M PRN IV DECREASED GLUCOSE; Start 02/10/19 at 22:30 Glucagon (Glucagen) 1 mg Q15M PRN IM DECREASED GLUCOSE; Start 02/10/19 at 22:30 Glucose (Glutose) 15 gm Q15M PRN BUCCAL DECREASED GLUCOSE; Start 02/10/19 at 22:30 Insulin Aspart (Novolog Insulin Pen) (Adult SC Insulin - Mild Algorithm)... AC MEALS AND BEDTIME SC Last administered on 02/20/19 12:11; Admin Dose 2 UNIT; Start 02/11/19 at 07:05 Diagnostic Test (Pha) (Accu-Chek) 1 ea 02 XX Last administered on 02/20/19 02:00; Admin Dose 1 EA; Start 02/11/19 at 02:00 Levothyroxine Sodium (Synthroid) 75 mcg BEFORE BREAKFAST PO Last administered on 02/20/19 06:30; Admin Dose 75 MCG; Start 02/11/19 at 07:00 Ferrous Sulfate (Ferrous Sulfate (Ec)) 325 mg BID@0600,1800 PO Last administered on 02/20/19 06:30; Admin Dose 325 MG; Start 02/11/19 at 06:00; Stop 03/03/19 at 05:59 Acetaminophen (Tylenol Tab) 650 mg Q6H PRN PO MILD PAIN(1-3)OR ELEVATED TEMP Last administered on 02/17/19 20:25; Admin Dose 650 MG; Start 02/10/19 at 23:00 Albuterol/ Ipratropium (Duoneb) 3 ml Q4H RESP THERAPY HHN Last administered on 02/20/19 07:53; Admin Dose 3 ML; Start 02/11/19 at 01:00 Albuterol/ Ipratropium (Duoneb) 3 ml Q2H RESP THERAPY PRN HHN SHORTNESS OF BREATH; Start 02/10/19 at 23:00 Allopurinol (Zyloprim) 100 mg DAILY PO Last administered on 02/20/19 08:52; Admin Dose 100 MG; Start 02/11/19 at 09:00 Apixaban (Eliquis) 2.5 mg BID PO Last administered on 02/20/19 08:51; Admin Dose 2.5 MG; Start 02/11/19 at 09:00 Non-Formulary Medication 1 DROP BOTH EYES Q4H PRN BOTH EYES DRY EYES Last administered on 02/15/19 19:07; Admin Dose 1 EA; Start 02/10/19 at 23:30 Latanoprost (Xalatan) 1 drop HS BOTH EYES Last administered on 02/19/19 21:18; Admin Dose 1 DROP; Start 02/11/19 at 21:00 Docusate Sodium (Colace Liquid Cup) 100 mg BID PO Last administered on 02/20/19 08:51; Admin Dose 100 MG; Start 02/11/19 at 21:00 Senna (Senokot) 1 tab HS PO Last administered on 02/19/19 21:04; Admin Dose 1 TAB; Start 02/11/19 at 21:00 Bisacodyl (Dulcolax Supp) 10 mg DAILY PRN [place] CONSTIPATION; Start 02/11/19 at 17:00 Magnesium Hydroxide (Milk Of Mag) 30 ml BID PRN PO CONSTIPATION Last administered on 02/17/19 06:52; Admin Dose 30 ML; Start 02/11/19 at 17:00 Lactulose (Enulose) 20 gm DAILY PRN PO CONSTIPATION Last administered on 02/13/19 08:58; Admin Dose 20 GM; Start 02/11/19 at 17:00 Cyclosporine (Restasis) 1 drop BID BOTH EYES Last administered on 02/20/19 08:52; Admin Dose 1 DROP; Start 02/12/19 at 09:00 Ciprofloxacin (Cipro) 500 mg BID@18 PO Last administered on 02/20/19 06:29; Admin Dose 500 MG; Start 02/13/19 at 18:00; Stop 02/20/19 at 17:59 Calcium Carbonate (Tums) 500 mg Q4 PRN PO hyperacidity Last administered on 02/13/19 21:31; Admin Dose 500 MG; Start 02/13/19 at 15:00 Hydralazine HCl (Apresoline) 25 mg TID PO Last administered on 02/20/19 08:52; Admin Dose 25 MG; Start 02/13/19 at 15:00 Alprazolam (Xanax) 0.25 mg HS PRN PO SLEEP Last administered on 3/22/19at 21:02; Admin Dose 0.25 MG; Start 02/13/19 at 17:00 Furosemide (Lasix) 20 mg DAILY PO Last administered on 02/19/19at 10:12; Admin Dose 20 MG; Start 02/18/19 at 09:00 SHAWANDA LUGO Feb 20, 2019 15:36
[2019-02-20] MEDS: ALPRAZOLAM 0.25 MG TAB PO PRN (21:27)
[2019-02-20] MEDS: ACETAMINOPHEN 325 MG TAB PO PRN (21:28)
[2019-02-20] MEDS: SENNA TAB PO SCH (21:32)
[2019-02-20] MEDS: LATANOPROST 0.005% 2.5 ML OPH BOTH EYES SCH (21:34)
[2019-02-20 21:41] VITALS: BP 98/53; PULSE 74; RESP 18
[2019-02-21] MEDS ORDERED: BENZONATATE 100 MG CAP PO PRN
[2019-02-21] MEDS ORDERED: ALPRAZOLAM 0.25 MG TAB PO ONE
[2019-02-21] MEDS ORDERED: traZODone 50 MG TAB PO ONE
[2019-02-21] MEDS: ALBUTEROL/IPRATROPIUM (NEB) 3 ML AMP HHN SCH ×6 (01:00→20:20)
[2019-02-21] MEDS: ACCUCHECK AT 2AM (Patients on SS coverage) XX SCH ×2 (02:00→05:21)
[2019-02-21] MEDS: FERROUS SULFATE (EC) 325 MG TAB PO SCH ×2 (06:53→17:45)
[2019-02-21] MEDS: LANSOPRAZOLE 30 MG CAP PO SCH ×2 (06:54→17:44)
[2019-02-21] MEDS: FUROSEMIDE 20 MG TAB PO SCH ×2 (06:54→18:38)
[2019-02-21] MEDS: LEVOTHYROXINE 75 MCG TAB PO SCH (06:55)
[2019-02-21 07:00] VITALS: BP 120/56; PULSE 74; RESP 19
[2019-02-21] MEDS: Insulin NOVOLOG SS MILD Algorithm (SS with meals and bedtime) SC SCH ×4 (08:10→20:38)
[2019-02-21] MEDS: LINAGLIPTIN 5 MG TABLET PO SCH (08:24)
[2019-02-21] MEDS: TIOTROPIUM 18 MCG CAPSULE INHA DEV INH SCH (08:24)
[2019-02-21] MEDS: DOCUSATE SODIUM 10 MG/ML (10ML CUP) PO SCH ×2 (08:24→20:39)
[2019-02-21] MEDS: MEGESTROL (40 MG/ML) 10ML CUP PO SCH (08:24)
[2019-02-21] MEDS: APIXABAN 5 MG TABLET PO SCH ×2 (08:25→20:41)
[2019-02-21] MEDS: LUBIPROSTONE 24 MCG CAP PO SCH ×2 (08:25→17:44)
[2019-02-21] MEDS: POLYETHYLENE GLYCOL 17 GM PACKET PO SCH (08:25)
[2019-02-21] MEDS: ALLOPURINOL 100 MG TAB PO SCH (08:25)
[2019-02-21] MEDS: CYCLOSPORINE 0.05% OPH DROPERETTE BOTH EYES SCH ×3 (08:25→21:00)
[2019-02-21] MEDS: SOTALOL 80 MG TAB PO SCH ×2 (08:25→20:40)
[2019-02-21] MEDS: MECLIZINE 25 MG TAB PO SCH ×3 (08:25→20:44)
--- NOTE | 2019-02-21 12:40 | PN ---
Date/Time of Note Date/Time of Note DATE: 02/21/19 TIME: 12:38 Assessment/Plan VTE Prophylaxis Risk score (from Ns)>0 risk: 6 SCD applied (from Ns): No SCD contraindicated: low risk/ambulating Pharmacological prophylaxis: heparin Lines/Catheters IV [facility] Type [facility]from [facility] Saline [facility] Urinary Cath still in place: No Assessment/Plan Problems: (1) Centrilobular emphysema Status: Chronic Comment: Compensated on medications and progressing. 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 Status: Chronic Comment: Adequate glycemic control Result Diagram: 02/21/19 0757 Results 24hrs Laboratory Tests Test 02/20/19 17:33 02/20/19 20:41 02/21/19 04:39 02/21/19 07:57 Bedside Glucose 189 233 H 168 Sodium Level 139 Potassium Level 4.0 Chloride Level 102 Carbon Dioxide Level 27 Anion Gap 10 Blood Urea Nitrogen 31 H Creatinine 1.46 H Est Glomerular Filtrat Rate mL/min Glucose Level 156 Calcium Level 8.9 Magnesium Level 2.5 Test 02/21/19 07:59 Bedside Glucose 174 Subjective 24 Hr Interval Summary Free Text/Dictation Patient is stable at this time and doing with protocols of the rehab unit Constitutional: no complaints Respiratory: no complaints Cardiovascular: no complaints Exam/Review of Systems Exam Vitals Vital Signs Date Temp Pulse Resp B/P (MAP) Pulse Ox O2 O2 Flow FiO2 Time Delivery Rate 02/21/19 Nasal 2.0 08:00 Cannula 02/21/19 98.2 74 19 120/56 100 07:00 (77) 02/21/19 21 05:09 Intake and Output 02/20/19 02/20/19 02/21/19 1515:00 23:00 07:00 IntakeIntake Total 650 ml 460 ml 180 ml OutputOutput Total 150 ml BalanceBalance 650 ml 310 ml 180 ml Constitutional: alert, oriented Respiratory: clear to auscultation, normal air movement Cardiovascular: nl pulses, irregular rhythm Extremities: normal pulses Results Results 24hrs Laboratory Tests Test 02/20/19 17:33 02/20/19 20:41 02/21/19 04:39 02/21/19 07:57 Bedside Glucose 189 233 H 168 Sodium Level 139 Potassium Level 4.0 Chloride Level 102 Carbon Dioxide Level 27 Anion Gap 10 Blood Urea Nitrogen 31 H Creatinine 1.46 H Est Glomerular Filtrat Rate mL/min Glucose Level 156 Calcium Level 8.9 Magnesium Level 2.5 Test 02/21/19 07:59 Bedside Glucose 174 Medications Medication Current Medications Polyethylene Glycol (Miralax) 17 gm DAILY PO Last administered on 02/21/19 08:25; Admin Dose 17 GM; Start 02/11/19 at 09:00 Sotalol HCl (Betapace) 80 mg BID PO Last administered on 02/21/19 08:25; Admin Dose 80 MG; Start 02/11/19 at 09:00 Tiotropium [place] (Spiriva) 1 inh DAILY INH Last administered on 02/21/19 08:24; Admin Dose 1 INH; Start 02/11/19 at 09:00 Lansoprazole (Prevacid) 30 mg BID@0600,1800 PO Last administered on 02/21/19 06:54; Admin Dose 30 MG; Start 02/11/19 at 06:00 Linagliptin (Tradjenta) 5 mg DAILY PO Last administered on 02/21/19 08:24; Adm in Dose 5 MG; Start 02/11/19 at 09:00 Lubiprostone (Amitiza) 24 mcg WITH BREAKFAST DINNE PO Last administered on 02/21/19 08:25; Admin Dose 24 MCG; Start 02/11/19 at 07:35 Meclizine HCl (Antivert) 25 mg TID PO Last administered on 02/21/19 08:25; Admin Dose 25 MG; Start 02/11/19 at 09:00 Megestrol Acetate (Megace Susp) 400 mg DAILY PO Last administered on 02/21/19 08:24; Admin Dose 400 MG; Start 02/11/19 at 09:00 Miscellaneous Information 1 ea NOTE XX ; Start 02/10/19 at 22:30 Glucose (Glutose) 15 gm Q15M PRN PO DECREASED GLUCOSE; Start 02/10/19 at 22:30 Glucose (Glutose) 22.5 gm Q15M PRN PO DECREASED GLUCOSE; Start 02/10/19 at 22:30 Dextrose (D50w Syringe) 25 ml Q15M PRN IV DECREASED GLUCOSE; Start 02/10/19 at 22:30 Dextrose (D50w Syringe) 50 ml Q15M PRN IV DECREASED GLUCOSE; Start 02/10/19 at 22:30 Glucagon (Glucagen) 1 mg Q15M PRN IM DECREASED GLUCOSE; Start 02/10/19 at 22:30 Glucose (Glutose) 15 gm Q15M PRN BUCCAL DECREASED GLUCOSE; Start 02/10/19 at 22:30 Insulin Aspart (Novolog Insulin Pen) (Adult SC Insulin - Mild Algorithm)... AC MEALS AND BEDTIME SC Last administered on 02/21/19 08:10; Admin Dose 1 UNIT; Start 02/11/19 at 07:05 Diagnostic Test (Pha) (Accu-Chek) 1 ea 02 XX Last administered on 02/21/19 05:21; Admin Dose 1 EA; Start 02/11/19 at 02:00 Levothyroxine Sodium (Synthroid) 75 mcg BEFORE BREAKFAST PO Last administered on 02/21/19 06:55; Admin Dose 75 MCG; Start 02/11/19 at 07:00 Ferrous Sulfate (Ferrous Sulfate (Ec)) 325 mg BID@0600,1800 PO Last administered on 02/21/19 06:53; Admin Dose 325 MG; Start 02/11/19 at 06:00; Stop 03/03/19 at 05:59 Acetaminophen (Tylenol Tab) 650 mg Q6H PRN PO MILD PAIN(1-3)OR ELEVATED TEMP Last administered on 02/20/19at 21:28; Admin Dose 650 MG; Start 02/10/19 at 23:00 Albuterol/ Ipratropium (Duoneb) 3 ml Q4H RESP THERAPY HHN Last administered on 02/21/19 05:09; Admin Dose 3 ML; Start 02/11/19 at 01:00 Albuterol/ Ipratropium (Duoneb) 3 ml Q2H RESP THERAPY PRN HHN SHORTNESS OF BREATH; Start 02/10/19 at 23:00 Allopurinol (Zyloprim) 100 mg DAILY PO Last administered on 02/21/19 08:25; Admin Dose 100 MG; Start 02/11/19 at 09:00 Apixaban (Eliquis) 2.5 mg BID PO Last administered on 02/21/19 08:25; Admin Dose 2.5 MG; Start 02/11/19 at 09:00 Non-Formulary Medication 1 DROP BOTH EYES Q4H PRN BOTH EYES DRY EYES Last administered on 02/15/19 19:07; Admin Dose 1 EA; Start 02/10/19 at 23:30 Latanoprost (Xalatan) 1 drop HS BOTH EYES Last administered on 02/20/19 21:34; Admin Dose 1 DROP; Start 02/11/19 at 21:00 Docusate Sodium (Colace Liquid Cup) 100 mg BID PO Last administered on 9at 08:24; Admin Dose 100 MG; Start 02/11/19 at 21:00 Senna (Senokot) 1 tab HS PO Last administered on 02/20/19 21:32; Admin Dose 1 TAB; Start 02/11/19 at 21:00 Bisacodyl (Dulcolax Supp) 10 mg DAILY PRN [place] CONSTIPATION; Start 02/11/19 at 17:00 Magnesium Hydroxide (Milk Of Mag) 30 ml BID PRN PO CONSTIPATION Last administered on 02/17/19 06:52; Admin Dose 30 ML; Start 02/11/19 at 17:00 Lactulose (Enulose) 20 gm DAILY PRN PO CONSTIPATION Last administered on 02/13/19 08:58; Admin Dose 20 GM; Start 02/11/19 at 17:00 Cyclosporine (Restasis) 1 drop BID BOTH EYES Last administered on 02/21/19 08:25; Admin Dose 1 DROP; Start 02/12/19 at 09:00 Calcium Carbonate (Tums) 500 mg Q4 PRN PO hyperacidity Last administered on 02/13/19 21:31; Admin Dose 500 MG; Start 02/13/19 at 15:00 Hydralazine HCl (Apresoline) 25 mg TID PO Last administered on 02/21/19 08:25; Admin Dose 25 MG; Start 02/13/19 at 15:00 Alprazolam (Xanax) 0.25 mg HS PRN PO SLEEP Last administered on 3/23/19at 21:27; Admin Dose 0.25 MG; Start 02/13/19 at 17:00 Furosemide (Lasix) 20 mg BID DIURETICS PO Last administered on 02/21/19at 06:54; Admin Dose 20 MG; Start 02/20/19 at 18:00 Benzonatate (Tessalon) 100 mg TID PRN PO for cough; Start 02/21/19 at 00:00 LUIS EDUARDO MARLEY MD Feb 21, 2019 12:40
[2019-02-21 14:00] VITALS: BP 94/52; PULSE 71; RESP 18
--- NOTE | 2019-02-21 15:48 | CONS ---
Assessment/Plan Assessment/Plan Hospital Course (Demo Recall) IMP: 1.AF-Paced when last on tele. on eliquis 2.PPM-no signs of dysfunction at this time 3.HTN-labile 4.DM 5.sob-likley PNA with possible component of CHF-diastolic EF 60% by echo this admit. Now improved 6. Hypothyroid 7. PNA by chest CT 8. Renal failure-slight worsening Recc: -Now in rehab -serial ecg's -Continue eliquis -Continue sotalol as tolerated only and follow QTc on sotalol -hydralazine now resumed but held due to low BP again and thus will reduce dose -Continue abx's and f/u cx data -Follow volume status and creatnine closely on po lasix BID -s/p albumin infusion -Continue bronchodilators -PT Consultation Date/Type/Reason Admit Date/Time Feb 10, 2019 at 18:51 Initial Consult Date 02/11/19 Type of Consult Cardiology Reason for Consultation CHF Requesting Provider: HERSON DAVIS MD Date/Time of Note DATE: 02/21/19 TIME: 15:46 Exam/Review of Systems Vital Signs Vitals Vital Signs Date Temp Pulse Resp B/P (MAP) Pulse Ox O2 O2 Flow FiO2 Time Delivery Rate 02/21/19 Nasal 2.0 08:00 Cannula 02/21/19 98.2 74 19 120/56 100 07:00 (77) 02/21/19 21 05:09 Intake and Output 02/20/19 02/20/19 02/21/19 1515:00 23:00 07:00 IntakeIntake Total 650 ml 460 ml 180 ml OutputOutput Total 150 ml BalanceBalance 650 ml 310 ml 180 ml Exam Exam Review of Systems: CONSTITUTIONAL: No fevers, chills. PULMONARY: No sob CARDIOVASCULAR: No chest pain/palpitations GASTROINTESTINAL: No nausea/vomiting. GENITOURINARY: No hematuria/dysuria. MUSCULOSKELETAL: No myagias/arthalgias. PSYCHIATRIC: The patient denies depression. NEUROLOGIC: lethargic somewhat Constitutional: alert Psych: no complaints Head: normocephalic ENMT: mucosa pink and moist Neck: supple, jvd Respiratory: diminished breath sounds Cardiovascular: regular rate and rhythm Gastrointestinal: soft, non-tender Musculoskeletal: muscle weakness (generalized) Extremities: pitting pedal edema Neurological: lethargic Labs Result Diagram: 02/21/19 0757 Results 24hrs Laboratory Tests Test 02/20/19 17:33 02/20/19 20:41 02/21/19 04:39 02/21/19 07:57 Bedside Glucose 189 233 H 168 Sodium Level 139 Potassium Level 4.0 Chloride Level 102 Carbon Dioxide Level 27 Anion Gap 10 Blood Urea Nitrogen 31 H Creatinine 1.46 H Est Glomerular Filtrat Rate mL/min Glucose Level 156 Calcium Level 8.9 Magnesium Level 2.5 Test 02/21/19 07:59 Bedside Glucose 174 Medications Medications Current Medications Polyethylene Glycol (Miralax) 17 gm DAILY PO Last administered on 02/21/19 08:25; Admin Dose 17 GM; Start 02/11/19 at 09:00 Sotalol HCl (Betapace) 80 mg BID PO Last administered on 02/21/19 08:25; Admin Dose 80 MG; Start 02/11/19 at 09:00 Tiotropium [place] (Spiriva) 1 inh DAILY INH Last administered on 02/21/19 08:24; Admin Dose 1 INH; Start 02/11/19 at 09:00 Lansoprazole (Prevacid) 30 mg BID@0600,1800 PO Last administered on 02/21/19 06:54; Admin Dose 30 MG; Start 02/11/19 at 06:00 Linagliptin (Tradjenta) 5 mg DAILY PO Last administered on 02/21/19 08:24; Admin Dose 5 MG; Start 02/11/19 at 09:00 Lubiprostone (Amitiza) 24 mcg WITH BREAKFAST DINNE PO Last administered on 02/21/19 08:25; Admin Dose 24 MCG; Start 02/11/19 at 07:35 Meclizine HCl (Antivert) 25 mg TID PO Last administered on 02/21/19 13:59; Admin Dose 25 MG; Start 02/11/19 at 09:00 Megestrol Acetate (Megace Susp) 400 mg DAILY PO Last administered on 02/21/19 08:24; Admin Dose 400 MG; Start 02/11/19 at 09:00 Miscellaneous Information 1 ea NOTE XX ; Start 02/10/19 at 22:30 Glucose (Glutose) 15 gm Q15M PRN PO DECREASED GLUCOSE; Start 02/10/19 at 22:30 Glucose (Glutose) 22.5 gm Q15M PRN PO DECREASED GLUCOSE; Start 02/10/19 at 22:30 Dextrose (D50w Syringe) 25 ml Q15M PRN IV DECREASED GLUCOSE; Start 02/10/19 at 22:30 Dextrose (D50w Syringe) 50 ml Q15M PRN IV DECREASED GLUCOSE; Start 02/10/19 at 22:30 Glucagon (Glucagen) 1 mg Q15M PRN IM DECREASED GLUCOSE; Start 02/10/19 at 22:30 Glucose (Glutose) 15 gm Q15M PRN BUCCAL DECREASED GLUCOSE; Start 02/10/19 at 22:30 Insulin Aspart (Novolog Insulin Pen) (Adult SC Insulin - Mild Algorithm)... AC MEALS AND BEDTIME SC Last administered on 02/21/19 08:10; Admin Dose 1 UNIT; Start 02/11/19 at 07:05 Diagnostic Test (Pha) (Accu-Chek) 1 ea 02 XX Last administered on 02/21/19 05:21; Admin Dose 1 EA; Start 02/11/19 at 02:00 Levothyroxine Sodium (Synthroid) 75 mcg BEFORE BREAKFAST PO Last administered on 02/21/19 06:55; Admin Dose 75 MCG; Start 02/11/19 at 07:00 Ferrous Sulfate (Ferrous Sulfate (Ec)) 325 mg BID@0600,1800 PO Last administered on 02/21/19 06:53; Admin Dose 325 MG; Start 02/11/19 at 06:00; St op 03/03/19 at 05:59 Acetaminophen (Tylenol Tab) 650 mg Q6H PRN PO MILD PAIN(1-3)OR ELEVATED TEMP Last administered on 02/20/19at 21:28; Admin Dose 650 MG; Start 02/10/19 at 23:00 Albuterol/ Ipratropium (Duoneb) 3 ml Q4H RESP THERAPY HHN Last administered on 02/21/19 05:09; Admin Dose 3 ML; Start 02/11/19 at 01:00 Albuterol/ Ipratropium (Duoneb) 3 ml Q2H RESP THERAPY PRN HHN SHORTNESS OF BREATH; Start 02/10/19 at 23:00 Allopurinol (Zyloprim) 100 mg DAILY PO Last administered on 02/21/19 08:25; Admin Dose 100 MG; Start 02/11/19 at 09:00 Apixaban (Eliquis) 2.5 mg BID PO Last administered on 02/21/19 08:25; Admin Dose 2.5 MG; Start 02/11/19 at 09:00 Non-Formulary Medication 1 DROP BOTH EYES Q4H PRN BOTH EYES DRY EYES Last administered on 02/15/19 19:07; Admin Dose 1 EA; Start 02/10/19 at 23:30 Latanoprost (Xalatan) 1 drop HS BOTH EYES Last administered on 02/20/19 21:34; Admin Dose 1 DROP; Start 02/11/19 at 21:00 Docusate Sodium (Colace Liquid Cup) 100 mg BID PO Last administered on 02/21/19 08:24; Admin Dose 100 MG; Start 02/11/19 at 21:00 Senna (Senokot) 1 tab HS PO Last administered on 02/20/19 21:32; Admin Dose 1 TAB; Start 02/11/19 at 21:00 Bisacodyl (Dulcolax Supp) 10 mg DAILY PRN [place] CONSTIPATION; Start 02/11/19 at 17:00 Magnesium Hydroxide (Milk Of Mag) 30 ml BID PRN PO CONSTIPATION Last administered on 02/17/19 06:52; Admin Dose 30 ML; Start 02/11/19 at 17:00 Lactulose (Enulose) 20 gm DAILY PRN PO CONSTIPATION Last administered on 02/13/19 08:58; Admin Dose 20 GM; Start 02/11/19 at 17:00 Cyclosporine (Restasis) 1 drop BID BOTH EYES Last administered on 02/21/19 08:25; Admin Dose 1 DROP; Start 02/12/19 at 09:00 Calcium Carbonate (Tums) 500 mg Q4 PRN PO hyperacidity Last administered on 02/13/19 21:31; Admin Dose 500 MG; Start 02/13/19 at 15:00 Hydralazine HCl (Apresoline) 25 mg TID PO Last administered on 02/21/19 08:25; Admin Dose 25 MG; Start 02/13/19 at 15:00 Alprazolam (Xanax) 0.25 mg HS PRN PO SLEEP Last administered on 02/20/19 2 1:27; Admin Dose 0.25 MG; Start 02/13/19 at 17:00 Furosemide (Lasix) 20 mg BID DIURETICS PO Last administered on 02/21/19at 06:54; Admin Dose 20 MG; Start 02/20/19 at 18:00 Benzonatate (Tessalon) 100 mg TID PRN PO for cough; Start 02/21/19 at 00:00 SHAWANDA LUGO Feb 21, 2019 15:48
[2019-02-21 20:00] VITALS: BP 105/52; PULSE 93; RESP 18
[2019-02-21] MEDS: LATANOPROST 0.005% 2.5 ML OPH BOTH EYES SCH ×2 (20:42→21:00)
[2019-02-21] MEDS: SENNA TAB PO SCH ×2 (20:43→21:00)
[2019-02-21] MEDS: ACETAMINOPHEN 325 MG TAB PO PRN (22:26)
[2019-02-21] MEDS: ALPRAZOLAM 0.25 MG TAB PO PRN (22:26)
[2019-02-22] MEDS: ALBUTEROL/IPRATROPIUM (NEB) 3 ML AMP HHN SCH ×6 (00:52→21:24)
[2019-02-22 02:00] VITALS: BP 108/54; PULSE 67; RESP 18
[2019-02-22] MEDS: ACCUCHECK AT 2AM (Patients on SS coverage) XX SCH (02:00)
[2019-02-22] MEDS: FERROUS SULFATE (EC) 325 MG TAB PO SCH ×3 (05:22→17:49)
[2019-02-22] MEDS: LANSOPRAZOLE 30 MG CAP PO SCH ×2 (05:22→18:00)
[2019-02-22 05:23] VITALS: BP 100/51; PULSE 84
[2019-02-22] MEDS: FUROSEMIDE 20 MG TAB PO SCH ×3 (05:23→17:49)
[2019-02-22] MEDS: LEVOTHYROXINE 75 MCG TAB PO SCH (06:10)
[2019-02-22] MEDS: Insulin NOVOLOG SS MILD Algorithm (SS with meals and bedtime) SC SCH ×4 (07:05→21:00)
[2019-02-22] MEDS: LUBIPROSTONE 24 MCG CAP PO SCH ×2 (07:35→17:35)
[2019-02-22] MEDS: SOTALOL 80 MG TAB PO SCH ×2 (09:00→21:00)
--- NOTE | 2019-02-22 09:05 | PN ---
Date/Time of Note Date/Time of Note DATE: 02/22/19 TIME: 09:04 Assessment/Plan VTE Prophylaxis Risk score (from Ns)>0 risk: 4 SCD applied (from Ns): No SCD contraindicated: other Pharmacological prophylaxis: apixaban Lines/Catheters IV [facility]from [facility] Saline [facility] Urinary Cath still in place: No Assessment/Plan Hospital Course SUBJECTIVE: No acute overnight episodes. OBJECTIVE: Vital signs-see below PHYSICAL EXAM: Constitutional: Frail looking, elderly female, not in acute distress. Psych: nl mood/affect, no complaints Head: atraumatic, normocephalic Eyes: nl conjunctiva, nl sclera ENMT: mucosa pink and moist, nl external ears & nose Neck: non-tender, supple Respiratory: clear bilaterally, normal air movement Cardiovascular: . nl pulses, regular rate and rhythm Gastrointestinal: non-tender, soft, bowel sounds active in all 4 quadrants. Musculoskeletal/extremities: nl extremities to inspection, motor strength equal bilaterally, no focal deficit. Normal pulses,no cyanosis, no edema. Neurological: Alert oriented 3,nl speech, nl strength Skin: nl turgor ASSESSMENT/PLAN:88-year-old female w/ multiple comorbidities including CHF, PAF, anemia, CKD, diabetes, hypothyroidism, transferred from [facility] after she was treated for acute respiratory failure secondary to aspiration pneumonia and heart failure for progressive debility. 1. Progressive debility -Continue rehab/PT 2. Status post respiratory failure secondary to aspiration pneumonia/CHF -Stable. Continue to monitor respiratory status. 3. Status post pneumonia -Stable. Treated.. 4. Chronic diastolic congestive heart failure. -Compensated. Continue current cardiac medications/beta-blockers/Lasix 5. Paroxysmal atrial fibrillation. -Stable -Continue Eliquis, Betapace 6.CKD -Stable renal function. 7.DMII -Stable glycemic trends. Continue Tradjenta -Accuchecks/ISS 8. Anemia of CKD. -HH stable. 9. Hypothyroidism -On Synthroid 10. 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 -On allopurinol. 11. s/p UTI. -treated DVT prophylaxis: Santos Patient was seen in collaboration with . Result Diagram: 02/21/19 0757 Results 24hrs Laboratory Tests Test 02/21/19 17:38 02/21/19 20:36 02/22/19 02:00 Bedside Glucose 212 235 H 203 Exam/Review of Systems Exam Vitals Vital Signs Date Temp Pulse Resp B/P (MAP) Pulse Ox O2 O2 Flow FiO2 Time Delivery Rate 02/22/19 84 100/51 05:23 (67) 02/22/19 18 97 Nasal 2.0 04:18 Cannula 02/22/19 97.8 02:00 02/21/19 21 20:20 Intake and Output 02/21/19 02/21/19 02/22/19 1515:00 23:00 07:00 IntakeIntake Total 700 ml OutputOutput Total 150 ml BalanceBalance 700 ml -150 ml Results Results 24hrs Laboratory Tests Test 02/21/19 17:38 02/21/19 20:36 02/22/19 02:00 Bedside Glucose 212 235 H 203 Medications Medication Current Medications Polyethylene Glycol (Miralax) 17 gm DAILY PO Last administered on 02/21/19 08:25; Admin Dose 17 GM; Start 02/11/19 at 09:00 Sotalol HCl (Betapace) 80 mg BID PO Last administered on 02/21/19 20:40; Admin Dose 80 MG; Start 02/11/19 at 09:00 Tiotropium [place] (Spiriva) 1 inh DAILY INH Last administered on 02/21/19 08:24; Admin Dose 1 INH; Start 02/11/19 at 09:00 Lansoprazole (Prevacid) 30 mg BID@0600,1800 PO Last administered on 02/22/19 05:22; Admin Dose 30 MG; Start 02/11/19 at 06:00 Linagliptin (Tradjenta) 5 mg DAILY PO Last administered on 02/21/19 08:24; Admin Dose 5 MG; Start 02/11/19 at 09:00 Lubiprostone (Amitiza) 24 mcg WITH BREAKFAST DINNE PO Last administered on 02/21/19 17:44; Admin Dose 24 MCG; Start 02/11/19 at 07:35 Meclizine HCl (Antivert) 25 mg TID PO Last administered on 02/21/19 20:44; Admin Dose 25 MG; Start 02/11/19 at 09:00 Megestrol Acetate (Megace Susp) 400 mg DAILY PO Last administered on 02/21/19 08:24; Admin Dose 400 MG; Start 02/11/19 at 09:00 Miscellaneous Information 1 ea NOTE XX ; Start 02/10/19 at 22:30 Glucose (Glutose) 15 gm Q15M PRN PO DECREASED GLUCOSE; Start 02/10/19 at 22:30 Glucose (Glutose) 22.5 gm Q15M PRN PO DECREASED GLUCOSE; Start 02/10/19 at 22:30 Dextrose (D50w Syringe) 25 ml Q15M PRN IV DECREASED GLUCOSE; Start 02/10/19 at 22:30 Dextrose (D50w Syringe) 50 ml Q15M PRN IV DECREASED GLUCOSE; Start 02/10/19 at 22:30 Glucagon (Glucagen) 1 mg Q15M PRN IM DECREASED GLUCOSE; Start 02/10/19 at 22:30 Glucose (Glutose) 15 gm Q15M PRN BUCCAL DECREASED GLUCOSE; Start 02/10/19 at 22:30 Insulin Aspart (Novolog Insulin Pen) (Adult SC Insulin - Mild Algorithm)... AC MEALS AND BEDTIME SC Last administered on 02/21/19at 20:38; Admin Dose 2 UNIT; Start 02/11/19 at 07:05 Diagnostic Test (Pha) (Accu-Chek) 1 ea 02 XX Last administered on 02/21/19at 05:21; Admin Dose 1 EA; Start 02/11/19 at 02:00 Levothyroxine Sodium (Synthroid) 75 mcg BEFORE BREAKFAST PO Last administered on 02/22/19at 06:10; Admin Dose 75 MCG; Start 02/11/19 at 07:00 Ferrous Sulfate (Ferrous Sulfate (Ec)) 325 mg BID@0600,1800 PO Last administered on 02/22/19at 05:22; Admin Dose 325 MG; Start 02/11/19 at 06:00; Stop 03/03/19 at 05:59 Acetaminophen (Tylenol Tab) 650 mg Q6H PRN PO MILD PAIN(1-3)OR ELEVATED TEMP Last administered on 02/21/19at 22:26; Admin Dose 650 MG; Start 02/10/19 at 23:00 Albuterol/ Ipratropium (Duoneb) 3 ml Q4H RESP THERAPY HHN Last administered on 02/22/19at 04:18; Admin Dose 3 ML; Start 02/11/19 at 01:00 Albuterol/ Ipratropium (Duoneb) 3 ml Q2H RESP THERAPY PRN HHN SHORTNESS OF BREATH; Start 02/10/19 at 23:00 Allopurinol (Zyloprim) 100 mg DAILY PO Last administered on 02/21/19 08:25; Admin Dose 100 MG; Start 02/11/19 at 09:00 Apixaban (Eliquis) 2.5 mg BID PO Last administered on 02/21/19 20:41; Admin Dose 2.5 MG; Start 02/11/19 at 09:00 Non-Formulary Medication 1 DROP BOTH EYES Q4H PRN BOTH EYES DRY EYES Last administered on 02/15/19 19:07; Admin Dose 1 EA; Start 02/10/19 at 23:30 Latanoprost (Xalatan) 1 drop HS BOTH EYES Last administered on 02/20/19 21:34; Admin Dose 1 DROP; Start 02/11/19 at 21:00 Docusate Sodium (Colace Liquid Cup) 100 mg BID PO Last administered on 02/21/19 20:39; Admin Dose 100 MG; Start 02/11/19 at 21:00 Senna (Senokot) 1 tab HS PO Last administered on 02/20/19 21:32; Admin Dose 1 TAB; Start 02/11/19 at 21:00 Bisacodyl (Dulcolax Supp) 10 mg DAILY PRN [place] CONSTIPATION; Start 02/11/19 at 17:00 Magnesium Hydroxide (Milk Of Mag) 30 ml BID PRN PO CONSTIPATION Last administered on 02/17/19 06:52; Admin Dose 30 ML; Start 02/11/19 at 17:00 Lactulose (Enulose) 20 gm DAILY PRN PO CONSTIPATION Last administered on 02/13/19 08:58; Admin Dose 20 GM; Start 02/11/19 at 17:00 Cyclosporine (Restasis) 1 drop BID BOTH EYES Last administered on 02/21/19 08:25; Admin Dose 1 DROP; Start 02/12/19 at 09:00 Calcium Carbonate (Tums) 500 mg Q4 PRN PO hyperacidity Last administered on 02/13/19 21:31; Admin Dose 500 MG; Start 02/13/19 at 15:00 Alprazolam (Xanax) 0.25 mg HS PRN PO SLEEP Last administered on 02/21/19 22:26; Admin Dose 0.25 MG; Start 02/13/19 at 17:00 Furosemide (Lasix) 20 mg BID DIURETICS PO Last administered on 02/22/19 05:23; Admin Dose 20 MG; Start 02/20/19 at 18:00 Benzonatate (Tessalon) 100 mg TID PRN PO for cough; Start 02/21/19 at 00:00 Hydralazine HCl (Apresoline) 10 mg TID PO Last administered on 02/21/19at 20:43; Admin Dose 10 MG; Start 02/21/19 at 21:00 ANDREA KHAN NP Feb 22, 2019 09:05
[2019-02-22] MEDS: CYCLOSPORINE 0.05% OPH DROPERETTE BOTH EYES SCH ×2 (11:05→21:00)
[2019-02-22] MEDS: MECLIZINE 25 MG TAB PO SCH ×3 (11:05→20:53)
[2019-02-22] MEDS: ALLOPURINOL 100 MG TAB PO SCH (11:05)
[2019-02-22] MEDS: APIXABAN 5 MG TABLET PO SCH ×2 (11:07→20:58)
[2019-02-22] MEDS: MEGESTROL (40 MG/ML) 10ML CUP PO SCH (11:08)
[2019-02-22] MEDS: POLYETHYLENE GLYCOL 17 GM PACKET PO SCH (11:08)
[2019-02-22] MEDS: LINAGLIPTIN 5 MG TABLET PO SCH (11:08)
[2019-02-22] MEDS: DOCUSATE SODIUM 10 MG/ML (10ML CUP) PO SCH ×2 (11:09→20:53)
[2019-02-22] MEDS: TIOTROPIUM 18 MCG CAPSULE INHA DEV INH SCH (11:09)
--- NOTE | 2019-02-22 13:33 | PN ---
Date/Time of Note Date/Time of Note DATE: 02/22/19 TIME: 13:32 Objective Vital Signs Date Temp Pulse Resp B/P (MAP) Pulse Ox O2 O2 Flow FiO2 Time Delivery Rate 02/22/19 75 16 96 Nasal 2.0 12:00 Cannula 02/22/19 100/51 05:23 (67) 02/22/19 97.8 02:00 02/21/19 21 20:20 Intake and Output 02/21/19 02/21/19 02/22/19 1414:59 22:59 06:59 IntakeIntake Total 700 ml OutputOutput Total 150 ml BalanceBalance 700 ml -150 ml Exam INTERDISCIPLINARY TEAM CONFERENCE Physical Exam: Pulm- cta Abd-soft BOWEL- Cont BLADDER-Cont /incont SKIN- improving OT- DRESSING-min/mod BATHING-min/mod TOILETING-min/mod PT- BED MOBILITY-cga TRANSFERS-cga AMBULATION-sba 75 feet SPEECH- COGNITION- Dysphagia- puree diet A/P- Interdisciplinary team conference held today. Please see interdisciplinary sheet. Working toward d.c. on 02/23 with post discharge follow up of physical therapy, occupational therapy. Results/Medications Result Diagram: 02/21/19 0757 Results 24 hrs Laboratory Tests Test 02/21/19 17:38 02/21/19 20:36 02/22/19 02:00 02/22/19 11:48 Bedside Glucose 212 235 H 203 207 Medications Current Medications Polyethylene Glycol (Miralax) 17 gm DAILY PO Last administered on 02/22/19 11:08; Admin Dose 17 GM; Start 02/11/19 at 09:00 Sotalol HCl (Betapace) 80 mg BID PO Last administered on 02/21/19at 20:40; Admin Dose 80 MG; Start 02/11/19 at 09:00 Tiotropium [place] (Spiriva) 1 inh DAILY INH Last administered on 02/22/19 11:09; Admin Dose 1 INH; Start 02/11/19 at 09:00 Lansoprazole (Prevacid) 30 mg BID@0600,1800 PO Last administered on 02/22/19 05:22; Admin Dose 30 MG; Start 02/11/19 at 06:00 Linagliptin (Tradjenta) 5 mg DAILY PO Last administered on 02/22/19 11:08; Admin Dose 5 MG; Start 02/11/19 at 09:00 Lubiprostone (Amitiza) 24 mcg WITH BREAKFAST DINNE PO Last administered on 02/21/19at 17:44; Admin Dose 24 MCG; Start 02/11/19 at 07:35 Meclizine HCl (Antivert) 25 mg TID PO Last administered on 02/22/19 11:05; Admin Dose 25 MG; Start 02/11/19 at 09:00 Megestrol Acetate (Megace Susp) 400 mg DAILY PO Last administered on 02/22/19 11:08; Admin Dose 400 MG; Start 02/11/19 at 09:00 Miscellaneous Information 1 ea NOTE XX ; Start 02/10/19 at 22:30 Glucose (Glutose) 15 gm Q15M PRN PO DECREASED GLUCOSE; Start 02/10/19 at 22:30 Glucose (Glutose) 22.5 gm Q15M PRN PO DECREASED GLUCOSE; Start 02/10/19 at 22:30 Dextrose (D50w Syringe) 25 ml Q15M PRN IV DECREASED GLUCOSE; Start 02/10/19 at 22:30 Dextrose (D50w Syringe) 50 ml Q15M PRN IV DECREASED GLUCOSE; Start 02/10/19 at 22:30 Glucagon (Glucagen) 1 mg Q15M PRN IM DECREASED GLUCOSE; Start 02/10/19 at 22:30 Glucose (Glutose) 15 gm Q15M PRN BUCCAL DECREASED GLUCOSE; Start 02/10/19 at 22:30 Insulin Aspart (Novolog Insulin Pen) (Adult SC Insulin - Mild Algorithm)... AC MEALS AND BEDTIME SC Last administered on 02/22/19at 11:53; Admin Dose 2 UNIT; Start 02/11/19 at 07:05 Diagnostic Test (Pha) (Accu-Chek) 1 ea 02 XX Last administered on 02/21/19 05:21; Admin Dose 1 EA; Start 02/11/19 at 02:00 Levothyroxine Sodium (Synthroid) 75 mcg BEFORE BREAKFAST PO Last administered on 02/22/19 06:10; Admin Dose 75 MCG; Start 02/11/19 at 07:00 Ferrous Sulfate (Ferrous Sulfate (Ec)) 325 mg BID@0600,1800 PO Last adminis tered on 02/22/19 05:22; Admin Dose 325 MG; Start 02/11/19 at 06:00; Stop 03/03/19 at 05:59 Acetaminophen (Tylenol Tab) 650 mg Q6H PRN PO MILD PAIN(1-3)OR ELEVATED TEMP Last administered on 02/21/19 22:26; Admin Dose 650 MG; Start 02/10/19 at 23:00 Albuterol/ Ipratropium (Duoneb) 3 ml Q4H RESP THERAPY HHN Last administered on 02/22/19 11:58; Admin Dose 3 ML; Start 02/11/19 at 01:00 Albuterol/ Ipratropium (Duoneb) 3 ml Q2H RESP THERAPY PRN HHN SHORTNESS OF BREATH; Start 02/10/19 at 23:00 Allopurinol (Zyloprim) 100 mg DAILY PO Last administered on 02/22/19 11:05; Admin Dose 100 MG; Start 02/11/19 at 09:00 Apixaban (Eliquis) 2.5 mg BID PO Last administered on 02/22/19 11:07; Admin Dose 2.5 MG; Start 02/11/19 at 09:00 Non-Formulary Medication 1 DROP BOTH EYES Q4H PRN BOTH EYES DRY EYES Last administered on 02/15/19 19:07; Admin Dose 1 EA; Start 02/10/19 at 23:30 Latanoprost (Xalatan) 1 drop HS BOTH EYES Last administered on 02/20/19 21:34; Admin Dose 1 DROP; Start 02/11/19 at 21:00 Docusate Sodium (Colace Liquid Cup) 100 mg BID PO Last administered on 02/22/19 11:09; Admin Dose 100 MG; Start 02/11/19 at 21:00 Senna (Senokot) 1 tab HS PO Last administered on 02/20/19 21:32; Admin Dose 1 TAB; Start 02/11/19 at 21:00 Bisacodyl (Dulcolax Supp) 10 mg DAILY PRN [place] CONSTIPATION; Start 02/11/19 at 17:00 Magnesium Hydroxide (Milk Of Mag) 30 ml BID PRN PO CONSTIPATION Last administered on 02/17/19 06:52; Admin Dose 30 ML; Start 02/11/19 at 17:00 Lactulose (Enulose) 20 gm DAILY PRN PO CONSTIPATION Last administered on 02/13/19 08:58; Admin Dose 20 GM; Start 02/11/19 at 17:00 Cyclosporine (Restasis) 1 drop BID BOTH EYES Last administered on 02/22/19 11:05; Admin Dose 1 DROP; Start 02/12/19 at 09:00 Calcium Carbonate (Tums) 500 mg Q4 PRN PO hyperacidity Last administered on 02/13/19 21:31; Admin Dose 500 MG; Start 02/13/19 at 15:00 Alprazolam (Xanax) 0.25 mg HS PRN PO SLEEP Last administered on 02/21/19 22:26; Admin Dose 0.25 MG; Start 02/13/19 at 17:00 Furosemide (Lasix) 20 mg BID DIURETICS PO Last administered on 02/22/19 05:23; Admin Dose 20 MG; Start 02/20/19 at 18:00 Benzonatate (Tessalon) 100 mg TID PRN PO for cough; Start 02/21/19 at 00:00 Hydralazine HCl (Apresoline) 10 mg TID PO Last administered on 02/21/19 20:43; Admin Dose 10 MG; Start 02/21/19 at 21:00 ERIC FRIED MD Feb 22, 2019 13:33
[2019-02-22 14:00] VITALS: BP 94/53; PULSE 83; RESP 18
--- NOTE | 2019-02-22 18:24 | CONS ---
Assessment/Plan Assessment/Plan Hospital Course (Demo Recall) IMP: 1.AF-Paced when last on tele. on eliquis 2.PPM-no signs of dysfunction at this time 3.HTN-labile 4.DM 5.sob-likley PNA with possible component of CHF-diastolic EF 60% by echo this admit. Now improved 6. Hypothyroid 7. PNA by chest CT 8. Renal failure-slight worsening Recc: -Now in rehab -serial ecg's -Continue eliquis -Continue sotalol as tolerated only and follow QTc on sotalol -hydralazine now resumed but held due to low BP again and thus will reduce dose -Continue abx's and f/u cx data -Follow volume status and creatnine closely on po lasix as tolerted with possible need to decrease back to daily given increase in creatnne -s/p albumin infusion and will consider additional infusion -Continue bronchodilators -PT Consultation Date/Type/Reason Admit Date/Time Feb 10, 2019 at 18:51 Initial Consult Date 02/11/19 Type of Consult Cardiology Reason for Consultation cardiomyopathy Requesting Provider: HERSON DAVIS MD Date/Time of Note DATE: 02/22/19 TIME: 18:21 Exam/Review of Systems Vital Signs Vitals Vital Signs Date Temp Pulse Resp B/P (MAP) Pulse Ox O2 O2 Flow FiO2 Time Delivery Rate 02/22/19 97.6 83 18 94/53 (67) 99 Room Air 14:00 02/22/19 2.0 13:48 02/21/19 21 20:20 Intake and Output 02/21/19 02/21/19 02/22/19 1515:00 23:00 07:00 IntakeIntake Total 700 ml OutputOutput Total 150 ml BalanceBalance 700 ml -150 ml Exam Exam Review of Systems: CONSTITUTIONAL: No fevers, chills. PULMONARY: No sob CARDIOVASCULAR: No chest pain/palpitations GASTROINTESTINAL: No nausea/vomiting. GENITOURINARY: No hematuria/dysuria. MUSCULOSKELETAL: No myagias/arthalgias. PSYCHIATRIC: The patient denies depression. NEUROLOGIC: No weakness Constitutional: alert Psych: no complaints Head: normocephalic Neck: supple, jvd (9 cm water) Respiratory: diminished breath sounds (at bases/B) Cardiovascular: regular rate and rhythm Gastrointestinal: soft, non-tender Musculoskeletal: muscle weakness (generalized) Extremities: pitting pedal edema (bilateral) Neurological: lethargic (somehwat) Labs Result Diagram: 02/21/19 0757 Results 24hrs Laboratory Tests Test 02/21/19 20:36 02/22/19 02:00 02/22/19 11:48 Bedside Glucose 235 H 203 207 Medications Medications Current Medications Polyethylene Glycol (Miralax) 17 gm DAILY PO Last administered on 02/22/19 11:08; Admin Dose 17 GM; Start 02/11/19 at 09:00 Sotalol HCl (Betapace) 80 mg BID PO Last administered on 02/21/19 20:40; Admin Dose 80 MG; Start 02/11/19 at 09:00 Tiotropium [place] (Spiriva) 1 inh DAILY INH Last administered on 02/22/19 11:09; Admin Dose 1 INH; Start 02/11/19 at 09:00 Lansoprazole (Prevacid) 30 mg BID@0600,1800 PO Last administered on 02/22/19 05:22; Admin Dose 30 MG; Start 02/11/19 at 06:00 Linagliptin (Tradjenta) 5 mg DAILY PO Last administered on 02/22/19 11:08; Admin Dose 5 MG; Start 02/11/19 at 09:00 Lubiprostone (Amitiza) 24 mcg WITH BREAKFAST DINNE PO Last administered on 02/21/19 17:44; Admin Dose 24 MCG; Start 02/11/19 at 07:35 Meclizine HCl (Antivert) 25 mg TID PO Last administered on 02/22/19 11:05; Admin Dose 25 MG; Start 02/11/19 at 09:00 Megestrol Acetate (Megace Susp) 400 mg DAILY PO Last administered on 02/22/19 11:08; Admin Dose 400 MG; Start 02/11/19 at 09:00 Miscellaneous Information 1 ea NOTE XX ; Start 02/10/19 at 22:30 Glucose (Glutose) 15 gm Q15M PRN PO DECREASED GLUCOSE; Start 02/10/19 at 22:30 Glucose (Glutose) 22.5 gm Q15M PRN PO DECREASED GLUCOSE; Start 02/10/19 at 22:30 Dextrose (D50w Syringe) 25 ml Q15M PRN IV DECREASED GLUCOSE; Start 02/10/19 at 22:30 Dextrose (D50w Syringe) 50 ml Q15M PRN IV DECREASED GLUCOSE; Start 02/10/19 at 22:30 Glucagon (Glucagen) 1 mg Q15M PRN IM DECREASED GLUCOSE; Start 02/10/19 at 22:30 Glucose (Glutose) 15 gm Q15M PRN BUCCAL DECREASED GLUCOSE; Start 02/10/19 at 22:30 Insulin Aspart (Novolog Insulin Pen) (Adult SC Insulin - Mild Algorithm)... AC MEALS AND BEDTIME SC Last administered on 02/22/19 11:53; Admin Dose 2 UNIT; Start 02/11/19 at 07:05 Diagnostic Test (Pha) (Accu-Chek) 1 ea 02 XX Last administered on 02/21/19 05:21; Admin Dose 1 EA; Start 02/11/19 at 02:00 Levothyroxine Sodium (Synthroid) 75 mcg BEFORE BREAKFAST PO Last administered on 02/22/19 06:10; Admin Dose 75 MCG; Start 02/11/19 at 07:00 Ferrous Sulfate (Ferrous Sulfate (Ec)) 325 mg BID@0600,1800 PO Last administered on 02/22/19 05:22; Admin Dose 325 MG; Start 02/11/19 at 06:00; Stop 03/03/19 at 05:59 Acetaminophen (Tylenol Tab) 650 mg Q6H PRN PO MILD PAIN(1-3)OR ELEVATED TEMP Last administered on 02/21/19 22:26; Admin Dose 650 MG; Start 02/10/19 at 23:00 Albuterol/ Ipratropium (Duoneb) 3 ml Q4H RESP THERAPY HHN Last administered on 02/22/19 11:58; Admin Dose 3 ML; Start 02/11/19 at 01:00 Albuterol/ Ipratropium (Duoneb) 3 ml Q2H RESP THERAPY PRN HHN SHORTNESS OF BREATH; Start 02/10/19 at 23:00 Allopurinol (Zyloprim) 100 mg DAILY PO Last administered on 02/22/19 11:05; Admin Dose 100 MG; Start 02/11/19 at 09:00 Apixaban (Eliquis) 2.5 mg BID PO Last administered on 02/22/19 11:07; Admin Dose 2.5 MG; Start 02/11/19 at 09:00 Non-Formulary Medication 1 DROP BOTH EYES Q4H PRN BOTH EYES DRY EYES Last administered on 02/15/19 19:07; Admin Dose 1 EA; Start 02/10/19 at 23:30 Latanoprost (Xalatan) 1 drop HS BOTH EYES Last administered on 02/20/19 21:34; Admin Dose 1 DROP; Start 02/11/19 at 21:00 Docusate Sodium (Colace Liquid Cup) 100 mg BID PO Last administered on 02/22/19 11:09; Admin Dose 100 MG; Start 02/11/19 at 21:00 Senna (Senokot) 1 tab HS PO Last administered on 02/20/19 21:32; Admin Dose 1 TAB; Start 02/11/19 at 21:00 Bisacodyl (Dulcolax Supp) 10 mg DAILY PRN [place] CONSTIPATION; Start 02/11/19 at 17:00 Magnesium Hydroxide (Milk Of Mag) 30 ml BID PRN PO CONSTIPATION Last administered on 02/17/19 06:52; Admin Dose 30 ML; Start 02/11/19 at 17:00 Lactulose (Enulose) 20 gm DAILY PRN PO CONSTIPATION Last administered on 08:58; Admin Dose 20 GM; Start 02/11/19 at 17:00 Cyclosporine (Restasis) 1 drop BID BOTH EYES Last administered on 02/22/19 11:05; Admin Dose 1 DROP; Start 02/12/19 at 09:00 Calcium Carbonate (Tums) 500 mg Q4 PRN PO hyperacidity Last administered on 02/13/19 21:31; Admin Dose 500 MG; Start 02/13/19 at 15:00 Alprazolam (Xanax) 0.25 mg HS PRN PO SLEEP Last administered on 02/21/19 22: 26; Admin Dose 0.25 MG; Start 02/13/19 at 17:00 Furosemide (Lasix) 20 mg BID DIURETICS PO Last administered on 02/22/19 05:23; Admin Dose 20 MG; Start 02/20/19 at 18:00 Benzonatate (Tessalon) 100 mg TID PRN PO for cough; Start 02/21/19 at 00:00 Hydralazine HCl (Apresoline) 10 mg TID PO Last administered on 02/21/19at 20:43; Admin Dose 10 MG; Start 02/21/19 at 21:00 SHAWANDA LUGO Feb 22, 2019 18:24
[2019-02-22 20:00] VITALS: BP 105/55; PULSE 18; RESP 18
[2019-02-22] MEDS: SENNA TAB PO SCH (20:52)
[2019-02-22] MEDS: ALPRAZOLAM 0.25 MG TAB PO PRN (20:53)
[2019-02-22] MEDS: ACETAMINOPHEN 325 MG TAB PO PRN (20:53)
[2019-02-22] MEDS: LATANOPROST 0.005% 2.5 ML OPH BOTH EYES SCH (21:00)
[2019-02-23] MEDS: ALBUTEROL/IPRATROPIUM (NEB) 3 ML AMP HHN SCH ×4 (01:00→12:12)
[2019-02-23 02:00] VITALS: BP 128/62; PULSE 61; RESP 18
[2019-02-23] MEDS: ACCUCHECK AT 2AM (Patients on SS coverage) XX SCH (02:00)
[2019-02-23] MEDS: LANSOPRAZOLE 30 MG CAP PO SCH (06:26)
[2019-02-23] MEDS: FERROUS SULFATE (EC) 325 MG TAB PO SCH (06:27)
[2019-02-23] MEDS: LEVOTHYROXINE 75 MCG TAB PO SCH (06:27)
[2019-02-23 07:00] VITALS: BP_SYST 115; BP_SYST 176; BP_DIAS 55; BP_DIAS 83; PULSE 60; PULSE 81; RESP 18
[2019-02-23] MEDS: Insulin NOVOLOG SS MILD Algorithm (SS with meals and bedtime) SC SCH (07:05)
[2019-02-23] MEDS: LINAGLIPTIN 5 MG TABLET PO SCH (07:56)
--- NOTE | 2019-02-23 08:48 | PN ---
Date/Time of Note Date/Time of Note DATE: 02/23/19 TIME: 08:46 Assessment/Plan VTE Prophylaxis Risk score (from Ns)>0 risk: 4 SCD applied (from Ns): No SCD contraindicated: other Pharmacological prophylaxis: apixaban Lines/Catheters IV Catheter Type (from [facility]): [place] [facility] Urinary Cath still in place: No Assessment/Plan Hospital Course SUBJECTIVE: No acute overnight episodes. OBJECTIVE: Vital signs-see below PHYSICAL EXAM: Constitutional: Frail looking, elderly female, not in acute distress. Psych: nl mood/affect, no complaints Head: atraumatic, normocephalic Eyes: nl conjunctiva, nl sclera ENMT: mucosa pink and moist, nl external ears & nose Neck: non-tender, supple Respiratory: clear bilaterally, normal air movement Cardiovascular: . nl pulses, regular rate and rhythm Gastrointestinal: non-tender, soft, bowel sounds active in all 4 quadrants. Musculoskeletal/extremities: nl extremities to inspection, motor strength equal bilaterally, no focal deficit. Normal pulses,no cyanosis, no edema. Neurological: Alert oriented 3,nl speech, nl strength Skin: nl turgor ASSESSMENT/PLAN:88-year-old female w/ multiple comorbidities including CHF, PAF, anemia, CKD, diabetes, hypothyroidism, transferred from [facility] after she was treated for acute respiratory failure secondary to aspiration pneumonia and heart failure for progressive debility. 1. Progressive debility -Continue rehab/PT 2. Status post respiratory failure secondary to aspiration pneumonia/CHF -Stable. Continue to monitor respiratory status. 3. Status post pneumonia -Stable. Treated.. 4. Chronic diastolic congestive heart failure. -Compensated. Continue current cardiac medications/beta-blockers/Lasix 5. Paroxysmal atrial fibrillation. -Stable -Continue Eliquis, Betapace 6.CKD -creatinine stable at baseline 7.DMII -Stable glycemic trends. Continue Tradjenta -Accuchecks/ISS 8. Anemia of CKD. -HH stable. 9. Hypothyroidism -On Synthroid 10. 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 -On allopurinol. 11. s/p UTI. -treated DVT prophylaxis: Eliquis Dspo:agree w/ DC plan on current meds Patient was seen in collaboration with . Result Diagram: 02/23/19 0646 Results 24hrs Laboratory Tests Test 02/22/19 11:48 02/22/19 20:50 02/23/19 01:59 02/23/19 06:46 Bedside Glucose 207 200 148 Sodium Level 138 Potassium Level 4.1 Chloride Level 103 Carbon Dioxide Level 25 Anion Gap 10 Blood Urea Nitrogen 38 H Creatinine 1.65 H Est Glomerular Filtrat Rate mL/min Glucose Level 125 Calcium Level 8.7 Test 02/23/19 07:54 Bedside Glucose 139 Exam/Review of Systems Exam Vitals Vital Signs Date Temp Pulse Resp B/P (MAP) Pulse Ox O2 O2 Flow FiO2 Time Delivery Rate 02/23/19 67 18 99 Nasal 2.0 05:39 Cannula 02/23/19 97.8 128/62 02:00 (84) 02/21/19 21 20:20 Intake and Output 02/22/19 02/22/19 02/23/19 1414:59 22:59 06:59 IntakeIntake Total 200 ml 640 ml 240 ml OutputOutput Total 200 ml 200 ml BalanceBalance 0 ml 640 ml 40 ml Results Results 24hrs Laboratory Tests Test 02/22/19 11:48 02/22/19 20:50 02/23/19 01:59 02/23/19 06:46 Bedside Glucose 207 200 148 Sodium Level 138 Potassium Level 4.1 Chloride Level 103 Carbon Dioxide Level 25 Anion Gap 10 Blood Urea Nitrogen 38 H Creatinine 1.65 H Est Glomerular Filtrat Rate mL/min Glucose Level 125 Calcium Level 8.7 Test 02/23/19 07:54 Bedside Glucose 139 Medications Medication Current Medications Polyethylene Glycol (Miralax) 17 gm DAILY PO Last administered on 02/22/19 11:08; Admin Dose 17 GM; Start 02/11/19 at 09:00 Sotalol HCl (Betapace) 80 mg BID PO Last administered on 02/21/19at 20:40; Admin Dose 80 MG; Start 02/11/19 at 09:00 Tiotropium [place] (Spiriva) 1 inh DAILY INH Last administered on 02/22/19at 11:09; Admin Dose 1 INH; Start 02/11/19 at 09:00 Lansoprazole (Prevacid) 30 mg BID@0600,1800 PO Last administered on 02/23/19at 06:26; Admin Dose 30 MG; Start 02/11/19 at 06:00 Linagliptin (Tradjenta) 5 mg DAILY PO Last administered on 02/23/19 07:56; Admin Dose 5 MG; Start 02/11/19 at 09:00 Lubiprostone (Amitiza) 24 mcg WITH BREAKFAST DINNE PO Last administered on 02/21/19 17:44; Admin Dose 24 MCG; Start 02/11/19 at 07:35 Meclizine HCl (Antivert) 25 mg TID PO Last administered on 02/22/19 20:53; Admin Dose 25 MG; Start 02/11/19 at 09:00 Megestrol Acetate (Megace Susp) 400 mg DAILY PO Last administered on 02/22/19 11:08; Admin Dose 400 MG; Start 02/11/19 at 09:00 Miscellaneous Information 1 ea NOTE XX ; Start 02/10/19 at 22:30 Glucose (Glutose) 15 gm Q15M PRN PO DECREASED GLUCOSE; Start 02/10/19 at 22:30 Glucose (Glutose) 22.5 gm Q15M PRN PO DECREASED GLUCOSE; Start 02/10/19 at 22:30 Dextrose (D50w Syringe) 25 ml Q15M PRN IV DECREASED GLUCOSE; Start 02/10/19 at 22:30 Dextrose (D50w Syringe) 50 ml Q15M PRN IV DECREASED GLUCOSE; Start 02/10/19 at 22:30 Glucagon (Glucagen) 1 mg Q15M PRN IM DECREASED GLUCOSE; Start 02/10/19 at 22:30 Glucose (Glutose) 15 gm Q15M PRN BUCCAL DECREASED GLUCOSE; Start 02/10/19 at 22:30 Insulin Aspart (Novolog Insulin Pen) (Adult SC Insulin - Mild Algorithm)... AC MEALS AND BEDTIME SC Last administered on 02/22/19 21:00; Admin Dose 1 UNIT; Start 02/11/19 at 07:05 Diagnostic Test (Pha) (Accu-Chek) 1 ea 02 XX Last administered on 02/21/19 05:21; Admin Dose 1 EA; Start 02/11/19 at 02:00 Levothyroxine Sodium (Synthroid) 75 mcg BEFORE BREAKFAST PO Last administered on 02/23/19 06:27; Admin Dose 75 MCG; Start 02/11/19 at 07:00 Ferrous Sulfate (Ferrous Sulfate (Ec)) 325 mg BID@0600,1800 PO Last administere d on 02/23/19 06:27; Admin Dose 325 MG; Start 02/11/19 at 06:00; Stop 03/03/19 at 05:59 Acetaminophen (Tylenol Tab) 650 mg Q6H PRN PO MILD PAIN(1-3)OR ELEVATED TEMP Last administered on 02/22/19 20:53; Admin Dose 650 MG; Start 02/10/19 at 23:00 Albuterol/ Ipratropium (Duoneb) 3 ml Q4H RESP THERAPY HHN Last administered on 02/23/19 05:38; Admin Dose 3 ML; Start 02/11/19 at 01:00 Albuterol/ Ipratropium (Duoneb) 3 ml Q2H RESP THERAPY PRN HHN SHORTNESS OF BREATH; Start 02/10/19 at 23:00 Allopurinol (Zyloprim) 100 mg DAILY PO Last administered on 02/22/19 11:05; Admin Dose 100 MG; Start 02/11/19 at 09:00 Apixaban (Eliquis) 2.5 mg BID PO Last administered on 02/22/19 20:58; Admin Dose 2.5 MG; Start 02/11/19 at 09:00 Non-Formulary Medication 1 DROP BOTH EYES Q4H PRN BOTH EYES DRY EYES Last administered on 02/15/19 19:07; Admin Dose 1 EA; Start 02/10/19 at 23:30 Latanoprost (Xalatan) 1 drop HS BOTH EYES Last administered on 02/20/19 21:34; Admin Dose 1 DROP; Start 02/11/19 at 21:00 Docusate Sodium (Colace Liquid Cup) 100 mg BID PO Last administered on 02/22/19 20:53; Admin Dose 100 MG; Start 02/11/19 at 21:00 Senna (Senokot) 1 tab HS PO Last administered on 02/22/19 20:52; Admin Dose 1 TAB; Start 02/11/19 at 21:00 Bisacodyl (Dulcolax Supp) 10 mg DAILY PRN [place] CONSTIPATION; Start 02/11/19 at 17:00 Magnesium Hydroxide (Milk Of Mag) 30 ml BID PRN PO CONSTIPATION Last ad ministered on 02/17/19 06:52; Admin Dose 30 ML; Start 02/11/19 at 17:00 Lactulose (Enulose) 20 gm DAILY PRN PO CONSTIPATION Last administered on 02/13/19 08:58; Admin Dose 20 GM; Start 02/11/19 at 17:00 Cyclosporine (Restasis) 1 drop BID BOTH EYES Last administered on 02/22/19 11:05; Admin Dose 1 DROP; Start 02/12/19 at 09:00 Calcium Carbonate (Tums) 500 mg Q4 PRN PO hyperacidity Last administered on 02/13/19 21:31; Admin Dose 500 MG; Start 02/13/19 at 15:00 Alprazolam (Xanax) 0.25 mg HS PRN PO SLEEP Last administered on 02/22/19 20:53; Admin Dose 0.25 MG; Start 02/13/19 at 17:00 Benzonatate (Tessalon) 100 mg TID PRN PO for cough; Start 02/21/19 at 00:00 Hydralazine HCl (Apresoline) 10 mg TID PO Last administered on 02/21/19 20:43; Admin Dose 10 MG; Start 02/21/19 at 21:00 Furosemide (Lasix) 20 mg DAILY PO ; Start 02/23/19 at 09:00 ANDREA KHAN NP Feb 23, 2019 08:48
[2019-02-23] MEDS: SOTALOL 80 MG TAB PO SCH (09:00)
[2019-02-23] MEDS ORDERED: FUROSEMIDE 20 MG TAB PO SCH (09:00)
[2019-02-23] MEDS: APIXABAN 5 MG TABLET PO SCH (09:25)
[2019-02-23] MEDS: DOCUSATE SODIUM 10 MG/ML (10ML CUP) PO SCH (09:25)
[2019-02-23] MEDS: MEGESTROL (40 MG/ML) 10ML CUP PO SCH (09:25)
[2019-02-23] MEDS: MECLIZINE 25 MG TAB PO SCH (09:27)
[2019-02-23] MEDS: TIOTROPIUM 18 MCG CAPSULE INHA DEV INH SCH (09:27)
[2019-02-23] MEDS: CYCLOSPORINE 0.05% OPH DROPERETTE BOTH EYES SCH (09:27)
[2019-02-23] MEDS: POLYETHYLENE GLYCOL 17 GM PACKET PO SCH (09:27)
[2019-02-23] MEDS: ALLOPURINOL 100 MG TAB PO SCH (09:29)
[2019-02-23] MEDS: LUBIPROSTONE 24 MCG CAP PO SCH (09:32)
[2019-02-23 11:06] VITALS: BP 104/58; PULSE 63; RESP 18
--- NOTE | 2019-02-23 12:59 | DS ---
Date/Time of Note Date/Time of Note DATE: 02/23/19 TIME: 12:57 Discharge Summary Admission/Discharge Info Admit Date/Time Feb 10, 2019 at 18:51 Discharge Date/Time Feb 23, 2019 at 11:45 Discharge Diagnosis Pulmonary debility secondary to acute on chronic respiratory failure;Status post aspiration pneumonia. 2. Dysphagia. 3. CHF. 4. Acute on chronic kidney disease. 5. Diabetes mellitus type 2. 6. History of DVT. 7. History of GI bleed. 8. Atrial fibrillation with history of pacemaker. 9. Urinary tract infection. 10. Improvements in self-care and mobility and mild cognitive impairments. Patient Condition: Good Hospital Course The patient was admitted for comprehensive interdisciplinary rehabilitation and made steady functional gains from a Mod/max level to a cga/min level for self care tasks and mobility including ambulating over 75 feet with the use of a FWW. Patient is being discharged home with the recommendation of home health PT, OT, speech and RN follow up. The DC meds are per the medication reconciliation sheet. The discharge equipment recommendations include: FWW, BSC, shower chair. The patient will follow up with PMD upon DC. Home Meds Active Scripts Metronidazole* (Flagyl*) 500 Mg Tablet, 500 MG PO Q8 for 4 Days, TAB Prov:CHARMAINE MENCHACA MD 02/10/19 Doxycycline Hyclate* (Doxycycline Hyclate*) 100 Mg Tablet.dr, 100 MG PO BID for pneumonia+ bronchitis for 4 Days, TAB Prov:CHARMAINE MENCHACA MD 02/10/19 Meclizine Hcl* (Meclizine Hcl*) 25 Mg Tablet, 25 MG PO TID for vertigo, #30 TAB Prov:PORFIRIO KHANNA DO 12/19/17 Polyethylene Glycol* (Miralax*) 17 Gm Powd.pack, 17 GM PO DAILY for 10 Days Prov:HERSON DAVIS MD 11/27/16 Lubiprostone* (Amitiza*) 24 Mcg Capsule, 24 MCG PO WITH BREAKFAST DINNE for 28 Days, CAP Prov:HERSON DAVIS MD 11/27/16 Ipratropium-Albuterol (Ipratropium-Albuterol) 0.5-3 Mg/3 Ml Ampul.neb, 3 ML HHN Q2H RESP THERAPY PRN for SHORTNESS OF BREATH for 28 Days Prov:HERSON DAVIS MD 11/27/16 Furosemide* (Lasix*) 20 Mg Tablet, 20 MG PO QAM, #90 TAB Prov:KEVIN ZHOU MD 11/23/16 Omeprazole* (Omeprazole*) 20 Mg Capsule.dr, 40 MG PO BID, #60 CAP Prov:RICARDO ARREGUIN MD 11/13/16 Reported Medications Apixaban* (Eliquis*) 2.5 Mg Tablet, 2.5 MG PO BID, TAB 02/01/19 Travoprost* (Travatan Z*) 2.5 Ml Drops, 1 DROP BOTH EYES HS, #1 BOTTLE 02/01/19 Gentamicin Sulfate* (Gentamicin Sulfate* Ophth) 0.3% - 5 Ml Drops, 1 DROP LEFT EYE Q4, EA 02/01/19 Cyclosporine (Restasis Multidose) 5.5 Ml Drops, 1 DROP OP BID, BOTTLE 02/01/19 Polyethylene Glycol* (Miralax*) 17 Gm Powd.pack, 17 GM PO DAILY, #30 PACKET 11/21/16 Potassium Chloride* (Potassium Chloride*) 8 Meq Capsule.er, 8 MEQ PO every other day, CAP 11/21/16 Docusate Sodium* (Colace*) 250 Mg Capsule, 250 MG PO DAILY, #30 CAP 11/21/16 Ferrous Sulfate* (Ferrous Sulfate*) 325 Mg Tabec, 325 MG PO BID, TAB 11/09/16 Levothyroxine Sodium* (Levothyroxine Sodium*) 75 Mcg Tablet, 75 MCG PO BEFORE BREAKFAST, #30 TAB 09/14/16 Sotalol Hcl* (Sotalol Hcl*) 80 Mg Tablet, 80 MG PO BID, TAB 09/14/16 Sitagliptin Phos/Metformin HCl (Janumet 50-500 mg Tablet) 1 Each Tablet, 1 EACH PO DAILY AM, TAB 09/14/16 Primary Care Provider Christie Plasencia MD Pending Labs Laboratory Tests Test 02/22/19 20:50 02/23/19 01:59 02/23/19 06:46 02/23/19 07:54 Bedside 200 148 139 Glucose mg/dL (70-220) mg/dL (70-220) mg/dL (70-220) Sodium Level 138 mmol/L (135-14 4) Potassium 4.1 Level mmol/L (3.5-5. 1) Chloride Level 103 mmol/L (97-110 ) Carbon Dioxide 25 Level mmol/L (21-31) Anion Gap 10 (5-13) Blood Urea 38 Nitrogen mg/dl (7-20) Creatinine 1.65 mg/dl (0.44-1. 00) Est Glomerular mL/min (>60) Filtrat Rate mL/min Glucose Level 125 mg/dl (70-220) Calcium Level 8.7 mg/dl (8.4-10. 2) ERIC FRIED MD Feb 23, 2019 12:59
== END 2019-02-23 11:45 | disposition home health service (06) | DRG 189 ==
LOC: VRC 18:51
PROVIDERS: ADMIT Physical Medicine & Rehabilitation; ATTEND Internal Medicine Pulmonary Disease
DX: J96.20 Acute and chronic respiratory failure, unspecified whether with hypoxia or hypercapnia (principal); J69.0 Pneumonitis due to inhalation of food and vomit; I13.0 Hypertensive heart and chronic kidney disease with heart failure and stage 1 through stage 4 chronic kidney disease, or unspecified chronic kidney disease; I50.32 Chronic diastolic (congestive) heart failure; N39.0 Urinary tract infection, site not specified; N17.9 Acute kidney failure, unspecified; I48.0 Paroxysmal atrial fibrillation; E11.22 Type 2 diabetes mellitus with diabetic chronic kidney disease; N18.9 Chronic kidney disease, unspecified; D63.1 Anemia in chronic kidney disease; E03.9 Hypothyroidism, unspecified; Z74.09 Other reduced mobility; R53.81 Other malaise; R13.12 Dysphagia, oropharyngeal phase; F06.31 Mood disorder due to known physiological condition with depressive features; F06.8 Other specified mental disorders due to known physiological condition
CPT/HCPCS: 74230; 80048; 80053; 81001; 82040; 82962; 83735; 85025; 87081; 87086; 92526; 92610; 92611; 93970; 94640; 94664; 97110; 97112; 97116; 97163; 97167; 97530; 97535; 97542; J1815; J1940; P9047